=== PATIENT | male | born 1945 | race Caucasian/White ===

== ENCOUNTER 2018-09-23 11:49 | Inpatient (IN) ==
[2018-09-23] MEDS ORDERED: SODIUM CHLORIDE 0.9% 1000ML 1,000 ML IV ONE ×2 (12:52→13:22)
[2018-09-23 12:55] LABS: Hemoglobin 13.4 g/dL (14.0-18.0); Mean Corpuscular Hgb Conc 33.5 g/dL (32-36); Mean Corpuscular Volume 88.9 fL (80-100); Mean Platelet Volume 9.7 fL (7.4-10.4); Platelet Count 129 K/uL (130-400); RDW Coefficient of Variation 14.6 % (11.5-14.5); RDW Standard Deviation 47.7 fL (36.4-46.3); White Blood Count 27.36 K/uL (4.8-10.8)
[2018-09-23 13:17] LABS: Albumin Globulin Ratio 0.8 (0.9-2); Albumin Level 2.9 gm/dl (3.4-5.0); BUN Creatinine Ratio 15.3 (10-20); Bilirubin,Total 1.4 mg/dl (0.2-1); Calcium 8.9 mg/dl (8.5-10.1); Creatinine Clr Calc Pharmacy 11.5 ml/min; Est GFR (African American) 11.2; Est GFR (Non-African American) 9.6; Globulin 3.5 gm/dl (2.5-4.0); Potassium 4.6 mmol/L (3.5-5.1); Total Protein 6.4 gm/dl (6.4-8.2)
--- NOTE | 2018-09-23 13:17 | XRay Report ---
XR chest 1V portable HISTORY: 73 years-old Male Pt ARF acute renal failure. COMPARISON: Chest radiograph 09/21/2018 TECHNIQUE: Portable AP view of the chest FINDINGS: Cardiac silhouette is mildly enlarged, unchanged. Opacity about the right paratracheal tissues is als o unchanged. Hiatal hernia. No pneumothorax, pleural effusion or overt pulmonary edema. Linear subseg mental retrocardiac opacities about the left lung base suggest atelectasis/scarring. The mineralized appearance of the bones. Degenerative changes of the shoulders and spine. Mildly disp laced fracture about the lateral aspect right fifth rib redemonstrated which appears subacute or study manager melinda. IMPRESSION: 1. Mild cardiomegaly without overt pulmonary edema. 2. Hiatal hernia. 2. Retrocardiac opacities about the left lung base suggest atelectasis/scarring. The above report was generated using voice recognition software. It may contain grammatical, syntax o r spelling errors. Electronically signed by: Emanuel Browne M.D. 09/23/2018 1:16 PM
[2018-09-23 13:18] LABS: Creatine Kinase 59 U/L (39-308); Creatine Kinase MB 1.8 ng/ml (0.5-3.6); Troponin I < 0.015 ng/ml (0-0.045)
--- NOTE | 2018-09-23 13:31 | CT Scan Report ---
CT SCAN OF THE BRAIN WITHOUT IV CONTRAST CLINICAL HISTORY: Change in mental status. COMPARISON STUDY: CT of the brain dated 09/21/2018. TECHNIQUE: Unenhanced axial CT scan of the brain is performed from the vertex to the skull base. A do se lowering technique was utilized adhering to the principles of ALARA. FINDINGS: Brain parenchyma: There are age-related involutional changes noting mild subcortical and periventric ular microangiopathic change. There is no hemorrhage, mass effect, or evidence of acute territorial i schemia by CT criteria. Vargas-white matter differentiation is preserved. No extra-axial fluid collecti on is seen. Ventricles, sulci, cisterns: Prominent secondary to involutional change. Intracranial vasculature: There is atherosclerotic calcification of the cavernous carotid arteries. Calvarium: Unremarkable. Sinuses and mastoids: Mild mucosal thickening is noted in the maxillary antra. The remaining visualiz ed paranasal sinuses are clear. The mastoid air cells are well pneumatized. Orbits: The bony orbits are grossly intact. IMPRESSION: There is no hemorrhage, mass effect, or evidence of acute territorial ischemia by CT jaquan burden. Electronically signed by: Claudio Reed M.D. 09/23/2018 1:30 PM
[2018-09-23 13:37] LABS: Basophils # (auto) 0.01 K/uL (0-0.2); Immature Granulocytes # (auto) 0.25 K/uL (0.00-0.02); Immature Granulocytes % (auto) 0.9 %; Lymphocytes # (auto) 0.72 K/uL (1.2-3.4); Lymphocytes % (auto) 2.6 %; Monocytes # (auto) 1.03 K/uL (0.11-0.59); Monocytes % (auto) 3.8 %; Neutrophils # (auto) 25.35 K/uL (1.4-6.5); Neutrophils % (auto) 92.7 %; Toxic Vacuolation 1+
--- NOTE | 2018-09-23 13:46 | CT Scan Report ---
ABDOMEN AND PELVIS CT WITHOUT CONTRAST CT DOSE: 1025.17 mGy.cm HISTORY: Acute renal failure Pt ARF TECHNIQUE: Multiaxial CT images of the abdomen and pelvis were performed without contrast. A dose lo wering technique was utilized adhering to the principles of ALARA. COMPARISON STUDY: None. FINDINGS: Trace pleural effusions. Subsegmental bibasilar opacities are suggestive of atelectasis. No pneumatos is or pneumoperitoneum. Imaged inferior cardiac chambers are moderately enlarged with trace pericardi al effusion. Study is limited without the use of IV or oral contrast. Cholelithiasis without definite CT evidence of acute cholecystitis. There are several hypodense lesions about the liver, largest of which measure s 3.9 x 2.2 cm about the subcapsular right hepatic lobe suggestive of a cyst. Additional probable cys t measures 1.2 cm within the left hepatic lobe. Indeterminate hypodense 6 mm lesion of the right hepa tic lobe on image 13 series 4 is too small to characterize. No intrahepatic biliary ductal dilation o r evidence of cirrhosis. Spleen measures within the upper limits of normal in size. There is a nodula r cystic lesion about the pancreatic tail measuring 2.3 x 1.6 cm. Mild generalized pancreatic atrophy . No pancreatic ductal dilation. Moderate thickening of the bilateral adrenal glands. Moderate bilateral perinephric stranding. Linear 5 mm calcification projects over the anterior aspect of the inferior pole right kidney. There are at least 2 nonobstructing calculi about the left kidney measuring up to 4 mm. Moderate bilateral hydroureteronephrosis with periureteral inflammatory strand ing. Marked distention of the urinary bladder lumen measures up to 11.6 x 14.4 x 19.1 cm and contains multiple bladder diverticula along with circumferential wall thickening, urinary bladder wall trabec ulation and extensive perivesicular inflammatory stranding and reactive free fluid. Large bladder betzaida culi are seen dependently within a diverticulum of the posterior inferior bladder measuring up to 1.9 cm. Marked enlargement of the prostate gland measuring up to 5.8 cm transversely. Calcifications are seen centrally about the prostate. Small left and moderate right fat filled hernias. Calcification tortuosity about the abdominal aorta. Moderate hiatal hernia. Nonspecific mildly promin ent retrocrural lymph nodes measure up to 7 mm. No small bowel obstruction. Nonspecific mild rectal w all thickening. Colonic diverticulosis without acute diverticulitis. Tubular structure suggestive of a normal appendix is noted within the abdominal right lower quadrant. Mild generalized body wall alon a. Deep tissue air is noted about the anterior chondral portion of the right seventh rib. Multilevel spondylitic spurring with facet arthrosis. Chronic posttraumatic appearing bony fusion at the L1-L2 l evel. No acute fracture identified. IMPRESSION: 1. Marked prostamegaly with severe urinary bladder distention, bladder wall thickening, trabeculation , perivesicular edema and reactive free fluid suggests sequela of chronic bladder outlet obstruction with probable cystitis. Correlate with urinalysis. 2. Moderate bilateral hydroureteronephrosis with nonobstructing left nephrolithiasis. Several large d ependent bladder calculi are also noted. 3. Cholelithiasis without CT evidence of acute cholecystitis. 4. Trace bilateral pleural effusions. 5. Colonic diverticulosis without acute diverticulitis. 6. Moderate hiatal hernia. 7. Cardiomegaly with trace pericardial effusion. 8. Additional findings as above. Electronically signed by: Emanuel Browne M.D. 09/23/2018 1:44 PM
[2018-09-23] MEDS ORDERED: PIPERACILLIN/TAZOBACTAM 4.5 GM/120 ML BAG IV ONE (14:00)
[2018-09-23] MEDS ORDERED: PIPERACILL/TAZOBAC CONSULT ACTIVE PRN ×2 (14:00→17:10)
[2018-09-23] MEDS ORDERED: DAPTOmycin 400 MG in SYRINGE 0 ML IV ONE (14:00)
[2018-09-23 14:42] LABS: Appearance Urine Cloudy (Clear); Bacteria Urine Automated 2+ (Negative); Bilirubin Urine Negative (Negative); Blood Urine 3+ (Negative); Color Urine Orange; Epithelial Cell Urine Auto 0-5 /lpf (0-5); Glucose Urine UA Negative (Negative); Ketones Urine Negative (Negative); Leukocyte Esterase Urine 3+ (Negative); Nitrite Urine Positive (Negative); RBC Urine Automated >30 /hpf (0-4); Specific Gravity Urine 1.009 (1.000-1.030); Urobilinogen Urine Negative (Negative); WBC Urine Automated >30 /hpf (0-5); pH Urine >= 9.0 (4.5-7.5)
[2018-09-23 15:04] LABS: Protein Urine 2+ (Negative)
--- NOTE | 2018-09-23 15:38 | History & Physical Report ---
Date of Service September 23, 2018 Assessment & Plan (1) Acute renal failure: Today BUN: 82 from 28 2 days ago. Cr: 5.3 from 0.79 2 days ago. magnesium : 2.2, phosphorus:3.2 probable secondary to obstruction. Pt has not been on other medications. CT abd/pelvis: Marked prostamegaly with severe urinary bladder distention, bladder wall thickening, trabeculation, perivesicular edema and reactive free fluid suggests sequela of chronic bladder outlet obstruction with probable cystitis. Moderate bilateral hydroureteronephrosis with nonobstructing left nephrolithiasis. Several large dependent bladder calculi are also noted. -In ER received 2L NSS -pending TSH, ionized calcium -renal diet for now -nephrology consult - spoke with coupon collection clerk - recommended 1/2NSS with 75meq/L sodium bicarb at 100ml/hr -urology consult appreciate recommendations -recheck bmp tonight -bmp in am (2) Sepsis: Pt meets sepsis criteria with P: 92, WBC: 27. In ER afebrile, Pulse up to 92, R: 20, BP: 102/62, 96% on RA. UA: +nitrite, 3+ leuk, >30 WBC, >30 RBC, 2+ bacteria -Urinary source -In ER was given 2L NSS, daptomycin, zosyn -lactate:1.6 -pending urine culture -pending blood cultures -zosyn, daptomycin -IVF as above -CBC, electrolytes in am (3) Acute urinary retention: (4) Enlarged prostate: Urinary retention noted in ER. Had adams placed and draining red color urine. Pt reports decreased urine stream for years and has noticed scrotal enlargement for years that is non-tender CT Abd/pelvis: 1. Marked prostamegaly with severe urinary bladder distention, bladder wall thickening, trabeculation, perivesicular edema and reactive free fluid suggests sequela of chronic bladder outlet obstruction with probable cystitis. Correlate with urinalysis. 2. Moderate bilateral hydroureteronephrosis with nonobstructing left nephrolithiasis. Several large dependent bladder calculi are also noted. -adams -PSA pending -flomax -urology consult appreciate recommendations -scrotal edema - if no improvement in am after adams consider us scrotum (5) Metabolic encephalopathy: Reported altered mental status over past several weeks. Noted improvement by family today. Probable secondary to underlying infection CT Head: no acute changes. -currently alert, oriented to person and place -neuro checks -monitor, if no improvement consider neurology consult (6) Pericardial effusion: CT abd/pelvis noted trace pericardial effusion. -echo to further evaluate -may need cardiology consult (7) Tremor: Noted tremor bilateral hands. Reported shuffled gait and tremor for years. -consider neurology referral (8) Failure to thrive: Pt living in house without running water and not eating or drinking well -case management to assist DVT Prophylaxis -heparin SQ Admit tele Full Code as per discussion with pt and pt's cousin Pt does not have PCP for routine care Pt was seen with Dr Valdivia. See addendum History of Present Illness Chief Complaint: Worsening renal functions Primary Care Provider: NO PCP Pt is 73 y/o M without known medical problems who has not followed with PCP for greater than 30 years presented to ER from [facility] for worsening renal functions and altered mental status. Pt was seen in ER on 09/21/18 for increased confusion over past several weeks which was noted by his cousin and inside sales coordinator. Pt lives at home without any running water or modern bathroom facilities and it is reported he has been drinking water out of a spring and using depends or plastic bags for toileting. States has noted a tremor to bilateral hands and shuffling walking gait for years. Cousin and Online Banking Specialist report past 2 days severe confusion and yesterday he was unable to feed himself. They state today pt is less confused and has even been making some jokes. They report he complained of some back pain a couple of days ago but were unsure with his AMS. Pt was started on Sinemet yesterday for suspected Parkinson's. Pt reports history decreased urine stream for years and has noticed scrotal enlargement for years that is non-tender. He reports chronic dry skin and admits to picking/scratching at skin. Denies fever/chills, diaphoresis, N/V/D/C , BARRERA, dizziness, syncope, vision changes, neck pain, CP, SOB, orthopnea, palpitations, cough, sore throat, choking, otalgia, rhinorrhea, abdominal pain, paresthesias, dysuria, hematuria, melena, hematochezia. In ER 2 days ago pt had normal WBC, BUN: 28 and Cr: 0.79 and was noted to appear dehydrated and was given some IVF and discharged to [facility] rehab. Today had outpatient labs noting Cr: 5. Allergies Allergy/AdvReac Type Severity Reaction Status Date / Time No Known Allergies Allergy Unverified 09/23/18 13:37 Home Medications Home Medications Medication Instructions Recorded Confirmed Type carbidopa-levodopa [Sinemet] 1 tab PO Q8 09/23/18 09/23/18 History docusate sodium 100 mg PO BID 09/23/18 09/23/18 History Past Med/Surg History Medical History Failure to thrive (Acute) No significant past surgical history (Chronic) Social History Current Living Situation: Rehab Other Information That Helps Us Care for You: No Feels Safe at Home: Yes Safety Concerns: Feels Safe At This Time Smoking Status: Never smoker Do You Dip or Chew Tobacco: No Second Hand Exposure: No Tobacco Cessation Education Requested by Patient: No Hx Alcohol Use: No Hx Substance Use: No Beliefs That Will Affect Care: None Preferred Language: Lebanese Communication Ability: no glasses Bolt Threader Required: No Review of Systems All systems reviewed & are unremarkable except as noted in HPI & below Physical Exam 2 Vital Signs (Past 24 Hours): Last Vital Signs Temp 36.7 C 09/23/18 11:56 Pulse 96 H 09/23/18 13:38 Resp 18 09/23/18 13:38 BP 111/78 09/23/18 13:38 Pulse Ox 95 09/23/18 13:38 Physical Exam: General: no acute distress, chronic ill appearing Head: normocephalic, atraumatic Eyes: PERRL, EOM's intact, conjunctiva non-injected, slight crusting along lower eyelashes, anicteric ENT: normal inspection external ears, nose, mucous membranes moist Neck: supple, trachea midline Lungs: no respiratory distress, diminished at bases CV: RRR, no murmur, no pretibial edema Abd: normal BS, soft, non-tender,no flank tenderness to palpation Groin: +scrotal edema and firmness, non-tender Ext: no cyanosis, no calf tenderness Neuro: A&O to person and place, confused on time,+tremor bilateral hands -seen at rest intermittently and intermittently with movement, no arm rigidity Skin: warm, dry, +scabs, papules to chest Results & Data Laboratory Results Short CBC 09/23/18 Range/Units 12:08 WBC 27.36 H (4.8-10.8) K/uL Hgb 13.4 L (14.0-18.0) g/dL Hct 40.0 L (42-52) % Plt Count 129 L (130-400) K/uL BMP 09/23/18 12:08 Sodium 136 Potassium 4.6 Chloride 103 Carbon Dioxide 20 L BUN 82 H Creatinine 5.36 H* Glucose 99 Calcium 8.9 Cardiac Enzymes 09/23/18 Range/Units 12:08 Total Creatine Kinase 59 (39-308) U/L CK-MB (CK-2) 1.8 (0.5-3.6) ng/ml Troponin I < 0.015 (0-0.045) ng/ml Liver Function 09/23/18 Range/Units 12:08 Total Bilirubin 1.4 H (0.2-1) mg/dl AST 11 L (15-37) U/L ALT 6 L (12-78) U/L Alkaline Phosphatase 62 (45-117) U/L Albumin 2.9 L (3.4-5.0) gm/dl Urine 09/23/18 Range/Units 14:05 Urine Color [place] Urine Appearance Cloudy H (Clear) Urine pH >= 9.0 H (4.5-7.5) Ur Specific [place] 1.009 (1.000-1.030) Urine Protein 2+ H (Negative) Urine Glucose (UA) Negative (Negative) Diagnostic Findings CT HEAD: IMPRESSION: There is no hemorrhage, mass effect, or evidence of acute territorial ischemia by CT criteria. CXR: IMPRESSION: 1. Mild cardiomegaly without overt pulmonary edema. 2. Hiatal hernia. 2. Retrocardiac opacities about the left lung base suggest atelectasis/ scarring. CT ABD/PELVIS: IMPRESSION: 1. Marked prostamegaly with severe urinary bladder distention, bladder wall thickening, trabeculation, perivesicular edema and reactive free fluid suggests sequela of chronic bladder outlet obstruction with probable cystitis. Correlate with urinalysis. 2. Moderate bilateral hydroureteronephrosis with nonobstructing left nephrolithiasis. Several large dependent bladder calculi are also noted. 3. Cholelithiasis without CT evidence of acute cholecystitis. 4. Trace bilateral pleural effusions. 5. Colonic diverticulosis without acute diverticulitis. 6. Moderate hiatal hernia. 7. Cardiomegaly with trace pericardial effusion. 8. Additional findings as above. ECG Rate (beats per minute): 66 Rhythm: normal sinus Additional Comments: left anterior fascicular block Supervising Physician Co-Signing Physician Notes Patient is a 73 yr male who presents with altered mental status, decreased urinary output, poor hygiene. Patient is a poor historian. Please review HPI for complete details. Patient was found to have ARF, Sepsis likely secondary to UTI due to Obstructive Uropathy/urinary retention, metabolic encephalopathy, Trace pericardial effusion, Uremia. On Exam patient is chronic ill appearing, poor hygiene, resting tremor, decreased breath sounds at bases, S2, S2, No murmur, No pedal edema, poor eye contact. grossly no focal deficits. Patient has elevated PSA levels. Patient will be started on IV fluids, IV abx, Urinary Catheter placed in ED. Started on flomax, Urology and Nephrology consulted. May need Neurology eval as well if no improvement of encephalopathy. I personally reviewed the record. Patient is interviewed and examined at bedside. Patient's care is coordinated with Samantha Maharaj PA-C. Please refer to the documentation above for details of patient's presentation and for discussion of other issues. _ (1) Acute renal failure Acute renal failure type: (2) Failure to thrive Failure to thrive age range: in adult Qualified Code(s): R62.7 - Adult failure to thrive
--- NOTE | 2018-09-23 16:49 | Nephrology Consultation ---
Date of Consultation September 23, 2018 Assessment & Plan (1) Acute renal failure: acute renal failure >> obstructive primarily -bmp daily -discussed w/ admitting service and recommended 1/2 NS w/75mEq/L sodium bicarbonate at 100 mL /hr -continue sepsis work up >> concern may have uti or potentially bacteremia -f/u urology recs -no acute indication for dialysis at this time Present on Admission?: Yes (2) Acute urinary retention: based on imaging, difficult to say if this is acute or chronic >> -adams placed -recommend urology eval Present on Admission?: Yes History of Present Illness Reason for Consultation: ANGE Requesting Physician: Dr Valdivia Attending Physician: Dr Dutta History of Present Illness 73 y/o M whom I'm asked to see for ANGE. He has not routinely accessed medical care for at least 30 years per report and lives alone w/ no running water for past year >> was brought to ER by strike out machine operator and cousin d/t concerns on 09/21 about worsening confusion and disorientation. His creatinine on 09/21 was 0.8 w/ unremarkable chemistries. Head CT unremarkable. Resting tremor and report of longstanding shuffling gait noted. He received 1L IV fluids. It was determined that acute rehab referral best w/ OP neurology eval. Pt went to [facility] where he was started on sinemet yesterday. Labs from this morning showed elevated creatinine and pt sent here w/ creatinine 5.4, wbc 27 K. Pt reported years of decreased urine output and enlarged, nontender scrotum per report. on arrival to floor pt noted to have brown urine in adams. Allergies Allergy/AdvReac Type Severity Reaction Status Date / Time No Known Allergies Allergy Unverified 09/23/18 13:37 Home Medications Home Medications Medication Instructions Recorded Confirmed Type carbidopa-levodopa [Sinemet] 1 tab PO Q8 09/23/18 09/23/18 History docusate sodium 100 mg PO BID 09/23/18 09/23/18 History Patient History Medical History Failure to thrive (Acute) No significant past surgical history (Chronic) Social History Current Living Situation: Rehab Other Information That Helps Us Care for You: No Feels Safe at Home: Yes Safety Concerns: Feels Safe At This Time Smoking Status: Never smoker Do You Dip or Chew Tobacco: No Second Hand Exposure: No Tobacco Cessation Education Requested by Patient: No Hx Alcohol Use: No Hx Substance Use: No Beliefs That Will Affect Care: None Preferred Language: Mauritian Communication Ability: no glasses Chief Lock Operator Required: No Review of Systems limited by pt condition Constitutional: + fatigue and + weakness Eyes: no worsening vision Ear, Nose, Mouth, Throat: no dry mouth Respiratory: no dyspnea Cardiovascular: no chest pain and no edema Gastrointestinal: no abdominal pain and no change in bowel habits Genitourinary (Male): + urinary hesitancy reports fci enlarged scrotum, states "I have a soft tissue tumor" and points to groin Musculoskeletal: + muscle weakness; no back pain and no stiffness Integumentary: no rash and no non-healing lesions Neurologic: + unsteadiness, + generalized weakness and + tremor(s); no falls Endocrine: + fatigue thirst Hematologic / Lymphatic: no easy bleeding Physical Exam 2 Vital Signs (Past 24 Hours): Last Vital Signs Temp 36.7 C 09/23/18 11:56 Pulse 63 09/23/18 16:32 Resp 18 09/23/18 16:32 BP 109/65 09/23/18 16:32 Pulse Ox 97 09/23/18 16:32 Constitutional: well developed and well nourished on RA, lying flat, tired but wakens Eyes: EOM intact bilaterally ENMT: Ears: no external ear abnormality Nose: no external nose abnormality Mouth: + dry oral mucous membranes and + poor dentition Neck: no nuchal rigidity Respiratory: normal respiratory effort Auscultation: + diminished lung sounds Cardiovascular: RRR, no murmur, no edema Gastrointestinal (Abdomen): Inspection/Auscultation: normal bowel sounds Percussion/Palpation: abdomen soft; abdomen nontender Musculoskeletal: Extremities: strength 5/5 throughout Skin: no rashes, warm and dry Neurologic: figueroa, fluent speech, no tremor Psychiatric: Orientation: alert and oriented x 3 (though oriented x 3 not a reliable historian) Eye Contact: + poor eye contact Motor Behavior: + tremor; + abnormal motor movements Affect: + flat affect Genitourinary: adams w/ brown urine Results & Data Laboratory Results Abnormal lab results 09/23/18 09/23/18 09/23/18 Range/Units 12:08 12:08 12:08 WBC 27.36 H (4.8-10.8) K/uL RBC 4.50 L (4.7-6.1) M/uL Hgb 13.4 L (14.0-18.0) g/dL Hct 40.0 L (42-52) % RDW Std Deviation 47.7 H (36.4-46.3) fL RDW Coeff of Kayley 14.6 H (11.5-14.5) % Plt Count 129 L (130-400) K/uL Immature Gran # (Auto) 0.25 H (0.00-0.02) K/uL Neut # (Auto) 25.35 H (1.4-6.5) K/uL Lymph # (Auto) 0.72 L (1.2-3.4) K/uL [place] # (Auto) 1.03 H (0.11-0.59) K/uL Carbon Dioxide 20 L (21-32) mmol/L Anion Gap 12.0 H (3-11) BUN 82 H (7-18) mg/dl Creatinine 5.36 H* (0.6-1.4) mg/dl Total Bilirubin 1.4 H (0.2-1) mg/dl AST 11 L (15-37) U/L ALT 6 L (12-78) U/L CK/CKMB % Calc 3.1 H (0-3.0) Albumin 2.9 L (3.4-5.0) gm/dl Albumin/Globulin Ratio 0.8 L (0.9-2) Urine Appearance (Clear) Urine pH (4.5-7.5) Urine Protein (Negative) Urine Blood (Negative) Urine Nitrite (Negative) Ur Leukocyte Esterase (Negative) Urine WBC (Auto) (0-5) /hpf Urine RBC (Auto) (0-4) /hpf Urine Bacteria (Auto) (Negative) 09/23/18 Range/Units 14:05 WBC (4.8-10.8) K/uL RBC (4.7-6.1) M/uL Hgb (14.0-18.0) g/dL Hct (42-52) % RDW Std Deviation (36.4-46.3) fL RDW Coeff of [place] (11.5-14.5) % Plt Count (130-400) K/uL Immature Gran # (Auto) (0.00-0.02) K/uL Neut # (Auto) (1.4-6.5) K/uL Lymph # (Auto) (1.2-3.4) K/uL [place] # (Auto) (0.11-0.59) K/uL Carbon Dioxide (21-32) mmol/L Anion Gap (3-11) BUN (7-18) mg/dl Creatinine (0.6-1.4) mg/dl Total Bilirubin (0.2-1) mg/dl AST (15-37) U/L ALT (12-78) U/L CK/CKMB % Calc (0-3.0) Albumin (3.4-5.0) gm/dl Albumin/Globulin Ratio (0.9-2) Urine Appearance Cloudy H (Clear) Urine pH >= 9.0 H (4.5-7.5) Urine Protein 2+ H (Negative) Urine Blood 3+ H (Negative) Urine Nitrite Positive H (Negative) Ur Leukocyte Esterase 3+ H (Negative) Urine WBC (Auto) >30 H (0-5) /hpf Urine RBC (Auto) >30 H (0-4) /hpf Urine Bacteria (Auto) 2+ H (Negative) Diagnostic Findings ct abd/pelvis non con 1. Marked prostamegaly with severe urinary bladder distention, bladder wall thickening, trabeculation, perivesicular edema and reactive free fluid suggests sequela of chronic bladder outlet obstruction with probable cystitis. Correlate with urinalysis. 2. Moderate bilateral hydroureteronephrosis with nonobstructing left nephrolithiasis. Several large dependent bladder calculi are also noted. 3. Cholelithiasis without CT evidence of acute cholecystitis. 4. Trace bilateral pleural effusions. 5. Colonic diverticulosis without acute diverticulitis. 6. Moderate hiatal hernia. 7. Cardiomegaly with trace pericardial effusion. 8. Additional findings as above. _ (1) Acute renal failure Acute renal failure type:
[2018-09-23] MEDS ORDERED: ACETAMINOPHEN 325 MG TAB PO PRN (17:06)
[2018-09-23] MEDS ORDERED: DAPTOMYCIN CONSULT ACTIVE PRN (17:21)
[2018-09-23] MEDS ORDERED: DAPTOmycin 400 MG in SYRINGE 0 ML IV SCH (18:00)
[2018-09-23 18:09] LABS: Magnesium 2.2 mg/dl (1.8-2.4); Phosphorus 3.2 mg/dl (2.5-4.9)
[2018-09-23] MEDS: SODIUM BICARBONATE 8.4% 75 MEQ in SODIUM CHLORIDE 0.45 % 1,000 ML IV SCH (18:12)
[2018-09-23] MEDS: TAMSULOSIN HCL 0.4 MG CAP PO SCH (18:23)
[2018-09-23 20:27] LABS: INR 1.1 (0.9-1.1); Prothrombin Time 11.3 Seconds (9.0-12.0)
[2018-09-23 20:39] LABS: BUN Creatinine Ratio 18.2 (10-20); Calcium 8.1 mg/dl (8.5-10.1); Creatinine Clr Calc Pharmacy 16.3 ml/min; Est GFR (Non-African American) 14.6; Prostate Specific Antigen 20.5 ng/ml (0-4)
[2018-09-23 20:40] LABS: Potassium 3.7 mmol/L (3.5-5.1)
[2018-09-23] MEDS: PIPERACILLIN/TAZOBACTAM 3.375 GM in DEXTROSE 5% 100 ML IV SCH (20:49)
[2018-09-23] MEDS ORDERED: HEPARIN SOD 5,000 UNIT/0.5 ML VIAL SQ SCH (21:00)
[2018-09-24] MEDS: SODIUM BICARBONATE 8.4% 75 MEQ in SODIUM CHLORIDE 0.45 % 1,000 ML IV SCH ×2 (04:48→16:07)
[2018-09-24 06:18] LABS: Eosinophils # (auto) 0.09 K/uL (0-0.5); Eosinophils % (auto) 0.6 %; Hemoglobin 11.2 g/dL (14.0-18.0); Immature Granulocytes # (auto) 0.06 K/uL (0.00-0.02); Immature Granulocytes % (auto) 0.4 %; Lymphocytes % (auto) 4.1 %; Mean Corpuscular Hgb Conc 32.9 g/dL (32-36); Mean Corpuscular Volume 88.8 fL (80-100); Mean Platelet Volume 10.1 fL (7.4-10.4); Monocytes # (auto) 0.52 K/uL (0.11-0.59); Monocytes % (auto) 3.6 %; Neutrophils % (auto) 91.3 %; Platelet Count 103 K/uL (130-400); RDW Coefficient of Variation 14.6 % (11.5-14.5); RDW Standard Deviation 47.6 fL (36.4-46.3); Red Blood Count 3.83 M/uL (4.7-6.1); White Blood Count 14.57 K/uL (4.8-10.8)
[2018-09-24 06:50] LABS: Albumin Level 2.1 gm/dl (3.4-5.0); BUN Creatinine Ratio 28.1 (10-20); Bilirubin Direct 0.2 mg/dl (0-0.2); Calcium 7.6 mg/dl (8.5-10.1); Creatinine Clr Calc Pharmacy 34.9 ml/min; Est GFR (African American) 43.5; Est GFR (Non-African American) 37.5; Magnesium 2.2 mg/dl (1.8-2.4); Potassium 3.5 mmol/L (3.5-5.1)
[2018-09-24 06:56] LABS: Albumin Globulin Ratio 0.7 (0.9-2); Bilirubin,Total 0.8 mg/dl (0.2-1); Phosphorus 2.8 mg/dl (2.5-4.9); Total Protein 5.1 gm/dl (6.4-8.2)
--- NOTE | 2018-09-24 07:20 | Urology Consultation ---
Date of Consultation September 24, 2018 Assessment & Plan (1) Enlarged prostate: (2) Bilateral hydronephrosis: (3) Acute urinary retention: 73yo M with acute delirium, severe bladder distension, BPH, bilateral hydro, ANGE, UTI, Leukocytosis Likely this is an acute on chronic issue. VS stable UA grossly abnormal, UC&S and BC pending. Please treat based on sensitivities for 10-14d. Prompt improvement in kidney function with catheter in place. We anticipate he will require adams catheter to allow maximal drainage for an extended period of time. PSA 20.5 initially, will recheck in 2-3 months when stable. Will add tamsulosin while inpatient, hold for SBP <90. There is concern that patient may have compliance issues moving forward. He is at risk for recurrence, kidney failure, and need for dialysis without proper outpatient follow-up. Likely will need outpatient cystoscopy and TURP for long-term management. Thank you for the consultation, we will continue to follow. No surgical intervention required at this time. Please see additional comments per my attending, as indicated. History of Present Illness Reason for Consultation: prostamegaly / hydro Requesting Physician: Dr. 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 He lives alone without running water and has not participated in consistent healthcare in >30 years. Pt found to be in acute renal failure, with leukocytosis, and grossly abnormal UA. CT imaging reveals bilateral hydronephrosis, stable L renal, nonobs stones, with grossly distended bladder associated with trabeculation, diverticuli and calculi. Consistent with cystitis, BPH and chronic NIX. Catheter placed in ED, drained large amount of cloudy, blood tinged urine. UA grossly abnormal, +2 protein, Nitrate positive, large leuks. UC&S and BC pending. Cr 5.36 on admission, improved to 1.74 with ad[address] catheter in place. Upon interview, patient is lethargic but disoriented to time. Oriented to self and place. Answering yes/no questions only. Pulling IV line and attempting to pull catheter out. He does admit to slowing urinary stream over the course of time. Allergies Allergy/AdvReac Type Severity Reaction Status Date / Time No Known Allergies Allergy Unverified 09/23/18 13:37 Home Medications Home Medications Medication Instructions Recorded Confirmed Type carbidopa-levodopa [Sinemet] 1 tab PO Q8 09/23/18 09/23/18 History docusate sodium 100 mg PO BID 09/23/18 09/23/18 History Patient History Medical History Failure to thrive (Acute) No significant past surgical history (Chronic) Family History Other Brain tumor Social History Current Living Situation: Rehab Other Information That Helps Us Care for You: No Feels Safe at Home: Yes Safety Concerns: Feels Safe At This Time Smoking Status: Never smoker Do You Dip or Chew Tobacco: No Second Hand Exposure: No Tobacco Cessation Education Requested by Patient: No Hx Alcohol Use: No Hx Substance Use: No Beliefs That Will Affect Care: None Preferred Language: Libyan Communication Ability: no glasses Gifted Program Teacher Required: No Review of Systems ROS inappropriate due to pt mentation. Physical Exam 2 Vital Signs (Past 24 Hours): Last Vital Signs Temp 37.0 C 09/24/18 03:56 Pulse 72 09/24/18 03:56 Resp 16 09/24/18 03:56 BP 107/66 09/24/18 03:56 Pulse Ox 94 09/24/18 03:56 Constitutional: + thin, + frail appearing and + disheveled Eyes: no nystagmus ENMT: Ears: no hearing impairment Neck: trachea midline Respiratory: no respiratory distress and does not use accessory muscles Cardiovascular: Vessels: no JVD Gastrointestinal (Abdomen): Inspection/Auscultation: abdomen not distended and no abdominal edema Musculoskeletal: Head/Neck/Chest: normocephalic Skin: no rashes, warm and dry Neurologic: + confused Psychiatric: Orientation: oriented to person and oriented to place; + not alert and + not oriented to time Affect: no depressed affect Insight: + poor insight Judgement: + poor judgement Genitourinary: adams catheter draining pink-tinged, clear urine Results & Data Laboratory Results Laboratory Results - last 48 hr 09/23/18 09/23/18 09/23/18 12:08 12:08 12:08 WBC 27.36 H RBC 4.50 L Hgb 13.4 L Hct 40.0 L MCV 88.9 MCH 29.8 MCHC 33.5 RDW Std Deviation 47.7 H RDW Coeff of Kayley 14.6 H Plt Count 129 L MPV 9.7 Immature Gran % (Auto) 0.9 Neut % (Auto) 92.7 Lymph % (Auto) 2.6 Madison % (Auto) 3.8 Eos % (Auto) 0.0 Baso % (Auto) 0.0 Immature Gran # (Auto) 0.25 H Neut # (Auto) 25.35 H Lymph # (Auto) 0.72 L Madison # (Auto) 1.03 H Eos # (Auto) 0.00 Baso # (Auto) 0.01 Toxic Vacuolation 1+ PT INR Sodium 136 Potassium 4.6 Chloride 103 Carbon Dioxide 20 L Anion Gap 12.0 H BUN 82 H Creatinine 5.36 H* Est Cr Clr Drug Dosing 11.5 Est GFR ( Amer) 11.2 Est GFR (Non-Af Amer) 9.6 BUN/Creatinine Ratio 15.3 Glucose 99 Lactate Calcium 8.9 Ionized Calcium Phosphorus Magnesium Total Bilirubin 1.4 H Direct Bilirubin AST 11 L ALT 6 L Alkaline Phosphatase 62 Total Creatine Kinase 59 CK-MB (CK-2) 1.8 CK/CKMB % Calc 3.1 H Troponin I < 0.015 Total Protein 6.4 Albumin 2.9 L Globulin 3.5 Albumin/Globulin Ratio 0.8 L Prostate Specific Ag TSH Urine Color Urine Appearance Urine pH Ur Specific [place]pine Urine Protein Urine Glucose (UA) Urine Ketones Urine Blood Urine Nitrite Urine Bilirubin Urine Urobilinogen Ur Leukocyte Esterase Urine WBC (Auto) Urine RBC (Auto) U Hyaline Cast (Auto) U Epithel Cells (Auto) Urine Bacteria (Auto) 09/23/18 09/23/18 09/23/18 14:05 15:55 17:14 WBC RBC Hgb Hct MCV MCH MCHC RDW Std Deviation RDW Coeff of Kayley Plt Count MPV Immature Gran % (Auto) Neut % (Auto) Lymph % (Auto) Madison % (Auto) Eos % (Auto) Baso % (Auto) Immature Gran # (Auto) Neut # (Auto) Lymph # (Auto) Madison # (Auto) Eos # (Auto) Baso # (Auto) Toxic Vacuolation PT INR Sodium Potassium Chloride Carbon Dioxide Anion Gap BUN Creatinine Est Cr Clr Drug Dosing Est GFR ( Amer) Est GFR (Non-Af Amer) BUN/Creatinine Ratio Glucose Lactate 1.6 Calcium Ionized Calcium 1.17 Phosphorus Magnesium Total Bilirubin Direct Bilirubin AST ALT Alkaline Phosphatase Total Creatine Kinase CK-MB (CK-2) CK/CKMB % Calc Troponin I Total Protein Albumin Globulin Albumin/Globulin Ratio Prostate Specific Ag TSH Urine Color [place] Urine Appearance Cloudy H Urine pH >= 9.0 H Ur Specific [place] 1.009 Urine Protein 2+ H Urine Glucose (UA) Negative Urine Ketones Negative Urine Blood 3+ H Urine Nitrite Positive H Urine Bilirubin Negative Urine Urobilinogen Negative Ur Leukocyte Esterase 3+ H Urine WBC (Auto) >30 H Urine RBC (Auto) >30 H U Hyaline Cast (Auto) 1-5 U Epithel Cells (Auto) 0-5 Urine Bacteria (Auto) 2+ H 09/23/18 09/23/18 09/23/18 17:14 19:40 19:40 WBC RBC Hgb Hct MCV MCH MCHC RDW Std Deviation RDW Coeff of Kayley Plt Count MPV Immature Gran % (Auto) Neut % (Auto) Lymph % (Auto) Madison % (Auto) Eos % (Auto) Baso % (Auto) Immature Gran # (Auto) Neut # (Auto) Lymph # (Auto) Madison # (Auto) Eos # (Auto) Baso # (Auto) Toxic Vacuolation PT 11.3 INR 1.1 Sodium 139 Potassium 3.7 D Chloride 108 H Carbon Dioxide 22 Anion Gap 9.0 BUN 69 H Creatinine 3.79 H D Est Cr Clr Drug Dosing 16.3 Est GFR ( Amer) 17.0 Est GFR (Non-Af Amer) 14.6 BUN/Creatinine Ratio 18.2 Glucose 155 H Lactate Calcium 8.1 L Ionized Calcium Phosphorus 3.2 Magnesium 2.2 Total Bilirubin Direct Bilirubin AST ALT Alkaline Phosphatase Total Creatine Kinase CK-MB (CK-2) CK/CKMB % Calc Troponin I Total Protein Albumin Globulin Albumin/Globulin Ratio Prostate Specific Ag 20.500 H TSH 0.975 Urine Color Urine Appearance Urine pH Ur Specific [place] Urine Protein Urine Glucose (UA) Urine Ketones Urine Blood Urine Nitrite Urine Bilirubin Urine Urobilinogen Ur Leukocyte Esterase Urine WBC (Auto) Urine RBC (Auto) U Hyaline Cast (Auto) U Epithel Cells (Auto) Urine Bacteria (Auto) 09/24/18 09/24/18 05:29 05:29 WBC 14.57 H D RBC 3.83 L Hgb 11.2 L Hct 34.0 L MCV 88.8 MCH 29.2 MCHC 32.9 RDW Std Deviation 47.6 H RDW Coeff of Kayley 14.6 H Plt Count 103 L MPV 10.1 Immature Gran % (Auto) 0.4 Neut % (Auto) 91.3 Lymph % (Auto) 4.1 Madison % (Auto) 3.6 Eos % (Auto) 0.6 Baso % (Auto) 0.0 Immature Gran # (Auto) 0.06 H Neut # (Auto) 13.30 H Lymph # (Auto) 0.60 L [place] # (Auto) 0.52 Eos # (Auto) 0.09 Baso # (Auto) 0.00 Toxic Vacuolation PT INR Sodium 140 Potassium 3.5 Chloride 110 H Carbon Dioxide 23 Anion Gap 7.0 BUN 49 H Creatinine 1.74 H D Est Cr Clr Drug Dosing 34.9 Est GFR ( Amer) 43.5 Est GFR (Non-Af Amer) 37.5 BUN/Creatinine Ratio 28.1 H Glucose 83 Lactate Calcium 7.6 L Ionized Calcium Phosphorus 2.8 Magnesium 2.2 Total Bilirubin 0.8 D Direct Bilirubin 0.2 AST 7 L ALT 9 L Alkaline Phosphatase 46 Total Creatine Kinase CK-MB (CK-2) CK/CKMB % Calc Troponin I Total Protein 5.1 L D Albumin 2.1 L Globulin 3.0 Albumin/Globulin Ratio 0.7 L Prostate Specific Ag TSH Urine Color Urine Appearance Urine pH Ur Specific [place] Urine Protein Urine Glucose (UA) Urine Ketones Urine Blood Urine Nitrite Urine Bilirubin Urine Urobilinogen Ur Leukocyte Esterase Urine WBC (Auto) Urine RBC (Auto) U Hyaline Cast (Auto) U Epithel Cells (Auto) Urine Bacteria (Auto)
[2018-09-24] MEDS: PIPERACILLIN/TAZOBACTAM 3.375 GM in DEXTROSE 5% 100 ML IV SCH ×2 (07:56→16:14)
[2018-09-24] MEDS: TAMSULOSIN HCL 0.4 MG CAP PO SCH (07:59)
--- NOTE | 2018-09-24 16:58 | Hospitalist Progress Note ---
Date of Service September 24, 2018 Assessment & Plan (1) Acute renal failure: Secondary to obstructive uropathy Presented with creatinine 5.3 (creatinine was 0.79 on 09/21/2018 CT abd/pelvis: Marked prostamegaly with severe urinary bladder distention, bladder wall thickening, trabeculation, perivesicular edema and reactive free fluid suggests sequela of chronic bladder outlet obstruction with probable cystitis. Moderate bilateral hydroureteronephrosis with nonobstructing left nephrolithiasis. Several large dependent bladder calculi are also noted. Adams catheter placed, but adequate urine output Creatinine improved: 5.36�3.7�1.74 -nephrology consulted -appreciate input - recommended 1/2NSS with 75meq/L sodium bicarb at 100ml/hr Improvement of creatinine as outlined above Bicarb 22 We will DC bicarb drip Patient will be continued with normal saline at the rate 125 ml/h Repeat BMP in a.m. - (2) Sepsis: Presented with sepsis, meets criteria, leukocytosis white count 27, thrombocytopenia, tachypnea Possible source of infection: UTI Marked urinary retention/obstruction UA positive nitrite +3 leukocyte esterase, more than 30 WBC, more than 30 RBC, + 2 bacteria Patient was empirically started with IV daptomycin/Zosyn -lactate:1.6 Follow urine and blood culture -possible source of infection -UTI cont Zosyn -pending cultures D/C Daptomycin Leukocytosis improved 27�14 .5 today (3) Acute urinary retention: Possible secondary to enlarged prostate/bladder outlet obstruction CT abdomen pelvis shows severely urinary bladder distention, bladder wall thickening is, enlarged prostate Adams placed Creatinine improved after resolution of bladder retention, IV hydration Urology consulted, appreciate input developed hematuria -possible due to traumatic catheter placement (4) Enlarged prostate: Urinary retention noted in ER. Had adams placed noted to have hematuria Pt reports decreased urine stream for years and has noticed scrotal enlargement for years that is non-tender CT Abd/pelvis: 1. Marked prostamegaly with severe urinary bladder distention, bladder wall thickening, trabeculation, perivesicular edema and reactive free fluid suggests sequela of chronic bladder outlet obstruction with probable cystitis. Correlate with urinalysis. 2. Moderate bilateral hydroureteronephrosis with nonobstructing left nephrolithiasis. Several large dependent bladder calculi are also noted. -PSA > 20 -started on flomax -urology consult appreciate recommendations -Recommend continue Adams catheter Repeat PSA level in 2-3 months Will need outpatient cystoscopy (5) Metabolic encephalopathy: due to infection /acute renal failure /uremia -metabolic encephalopathy Reported altered mental status over past several weeks. Noted improvement by family today. Probable secondary to underlying infection CT Head: no acute changes. -currently alert, oriented to person and place , with episodes of confusion (6) Pericardial effusion: CT abd/pelvis noted trace pericardial effusion. possible due to acute renal failure /uremia -echo : Small loculated anterior pericardial effusion without hemodynamic significance/no evidence of tamponade Normal LV function, no wall motion abnormality (7) Tremor: Noted tremor bilateral hands. Reported shuffled gait and tremor for years. -consider neurology referral (8) Failure to thrive: Pt living in house without running water and not eating or drinking well -case management to assist for rehab PT/OT eval to assess for Rehab DVT Prophylaxis DC subcu heparin: Secondary to thrombocytopenia SCD and Teds Full Code as per discussion with pt and pt's cousin Pt does not have PCP for routine care Subjective offers no complain baseline confusion , knows that he is in hospital ( [facility] ) does not recall why and when he came to hospital denies of any SOB , cough vitals remains stable Adams draining dark urine ( no obvious hematuria noted ) Physical Exam 2 Vital Signs (Past 24 Hours): Last Vital Signs Temp 36.8 C 09/24/18 15:23 Pulse 64 09/24/18 15:23 Resp 18 09/24/18 15:23 BP 110/70 09/24/18 15:23 Pulse Ox 95 09/24/18 15:23 Constitutional: + ill appearing, + thin and + disheveled Eyes: + anicteric sclerae ENMT: Ears: no hearing impairment Mouth: no lip abnormality, no oral mucosal abnormality and no tongue abnormality Respiratory: normal respiratory effort; no respiratory distress and no labored breathing Auscultation: no crackles, no rales and no wheezes Cardiovascular: Rate/Rhythm: regular rate and regular rhythm Gastrointestinal (Abdomen): Inspection/Auscultation: abdomen normal to inspection Percussion/Palpation: abdomen soft; abdomen nontender Musculoskeletal: Head/Neck/Chest: normocephalic and head atraumatic bilateral chronic venous stasis change Neurologic: PERRL, EOMI, accommodation nl, no face palsy, no dysarthria Psychiatric: Orientation: alert, oriented to person and oriented to place _ (1) Acute renal failure Acute renal failure type: (2) Failure to thrive Failure to thrive age range: in adult Qualified Code(s): R62.7 - Adult failure to thrive
[2018-09-24] MEDS ORDERED: ONDANSETRON INJ 2 MG/ML 2 ML VIAL IV PRN (17:02)
[2018-09-24] MEDS: SODIUM CHLORIDE 0.9% 1000ML 1,000 ML IV SCH (18:45)
[2018-09-24] MEDS ORDERED: TAMSULOSIN HCL 0.4 MG CAP PO SCH (21:00)
[2018-09-25] MEDS: PIPERACILLIN/TAZOBACTAM 3.375 GM in DEXTROSE 5% 100 ML IV SCH ×4 (00:29→23:53)
[2018-09-25] MEDS: SODIUM CHLORIDE 0.9% 1000ML 1,000 ML IV SCH ×2 (00:36→13:23)
[2018-09-25 05:53] LABS: Hematocrit (blood only) 34.8 % (42-52); Hemoglobin 11.4 g/dL (14.0-18.0); Mean Corpuscular Hgb Conc 32.8 g/dL (32-36); Mean Corpuscular Volume 88.8 fL (80-100); Mean Platelet Volume 9.9 fL (7.4-10.4); Platelet Count 100 K/uL (130-400); RDW Coefficient of Variation 14.4 % (11.5-14.5); RDW Standard Deviation 46.6 fL (36.4-46.3); Red Blood Count 3.92 M/uL (4.7-6.1); White Blood Count 9.18 K/uL (4.8-10.8)
[2018-09-25 06:37] LABS: BUN Creatinine Ratio 26.8 (10-20); Calcium 7.6 mg/dl (8.5-10.1); Creatinine Clr Calc Pharmacy 55.7 ml/min; Est GFR (African American) 76.5; Potassium 3.8 mmol/L (3.5-5.1)
[2018-09-25] MEDS: TAMSULOSIN HCL 0.4 MG CAP PO SCH (08:40)
[2018-09-25] MEDS: NORMOSOL-R 1,000 ML IV SCH ×2 (12:25→19:54)
[2018-09-25] MEDS: CARBIDOPA/LEVODOPA 25/100MG TAB PO SCH ×2 (13:32→20:36)
[2018-09-25] MEDS: DOCUSATE SODIUM 100 MG CAP PO SCH ×2 (13:32→20:36)
--- NOTE | 2018-09-25 15:43 | Urology Progress Note ---
Date of Service September 25, 2018 Assessment & Plan (1) Acute urinary retention: ARF 2/2 bladder neck obstruction - leave catheter for now - Cr has corrected completely - likely will need surgery at some point in the future, but not acutely Subjective Denies any major complaints reports that the catheter is ok Physical Exam 2 Vital Signs (Past 24 Hours): Last Vital Signs Temp 36.3 C L 09/25/18 12:53 Pulse 64 09/25/18 12:53 Resp 18 09/25/18 12:53 BP 110/68 09/25/18 12:53 Pulse Ox 97 09/25/18 12:53 Physical Exam: soft spoken - no distress no resp issues RRR abd soft urine clear no edema - no rashes
--- NOTE | 2018-09-25 19:04 | Emergency Department Note ---
Entered by Aki Hogan acting as a scribe for History of Present Illness General Chief complaint: Referred by Doctor Stated complaint: SENT FROM AT [facility] Time Seen by Provider: 09/23/18 12:48 Source: patient Limitations: altered mental status and clinical acuity History of Present Illness Provider complaint: AMS/Confusion Onset (ago): day(s) Location: head Pain Consistency: + other (worsening confusion) Quality: + other (confusion) Associated symptoms: + other (BUN 73, Creatinine 5.0) Treatments prior to arrival: other ([facility]) This history is significantly limited secondary to AMS/confusion. The patient is a 73 year old male who presents to the Emergency Room from [facility] in acute renal failure. [facility] notes states that his lab work today showed BUN of 73 and a Creatinine of 5.0. HPI from ED visit two days ago reads; This history is significantly limited secondary to the mental status of the patient. The patient is a 73 year old male who presents to the Emergency Room with his cousin and [employer] with concerns over worsening confusion and disorientation. The patient's cousin at bedside states that the patient has been exhibiting worsening disorientation over the past several weeks. He notes that the patient lives at home alone and has not had running water in over 1 year. The patient has been getting his water from a nearby spring and having his bowel movements in plastic bags. He does not have a PCP and is not on any daily medications. The patient was admitted to [facility] following this visit for rehabilitation. Home Medications Home Medications Medication Instructions Recorded Confirmed Type carbidopa-levodopa [Sinemet] 1 tab PO Q8 09/23/18 09/23/18 History docusate sodium 100 mg PO BID 09/23/18 09/23/18 History Allergies Allergy/AdvReac Type Severity Reaction Status Date / Time No Known Allergies Allergy Unverified 09/23/18 13:37 Past Med/Surg History Medical History Failure to thrive (Acute) No significant past surgical history (Chronic) Family History Other Brain tumor Social History marital status: Single Current Living Situation: Rehab Other Information That Helps Us Care for You: No Feels Safe at Home: Yes Safety Concerns: Feels Safe At This Time Smoking Status: Never smoker Do You Dip or Chew Tobacco: No Second Hand Exposure: No Tobacco Cessation Education Requested by Patient: No Hx Alcohol Use: No Hx Substance Use: No Beliefs That Will Affect Care: None Communication Ability: Effective Review of Systems See HPI for pertinent positives & negatives. ROS limited secondary to AMS/confusion Physical Exam Vital Signs Vital Signs - 24 hr 09/24/18 23:25 09/25/18 04:02 09/25/18 08:06 Temperature 37.1 C 36.8 C 36.7 C Temperature Source Oral Oral Oral Pulse Rate 65 Pulse Rate [Left Finger] Pulse Rate [Right Brachial] 62 58 L 66 Respiratory Rate 17 16 18 Blood Pressure [Left Arm] 123/77 136/83 Blood Pressure [Right Arm] 129/74 Blood Pressure Mean [Left Arm] 92 100 Blood Pressure Mean [Right Arm] 92 Blood Pressure Position [Left Arm] Lying Lying Blood Pressure Position [Right Arm] Pulse Oximetry 94 94 96 Oxygen Delivery Method Room Air Room Air 09/25/18 11:55 09/25/18 12:53 09/25/18 16:00 Temperature 37 C 36.3 C L 36.8 C Temperature Source Oral Oral Oral Pulse Rate Pulse Rate [Left Finger] 52 L Pulse Rate [Right Brachial] 74 64 Respiratory Rate 20 18 18 Blood Pressure [Left Arm] 130/78 Blood Pressure [Right Arm] 88/54 L 110/68 Blood Pressure Mean [Left Arm] 95 Blood Pressure Mean [Right Arm] 65 82 Blood Pressure Position [Left Arm] Lying Blood Pressure Position [Right Arm] Sitting Sitting Pulse Oximetry 99 97 95 Oxygen Delivery Method Room Air Room Air Room Air GENERAL: Awake, chronically-ill appearing. HENT: Normocephalic, atraumatic. Oropharynx unremarkable. Mucous membranes are dry. EYES: Normal conjunctiva. Sclera non-icteric. NECK: Supple. No nuchal rigidity. FROM. No JVD. RESPIRATORY: Clear to auscultation. CARDIAC: Regular rate, normal rhythm. Extremities warm and well perfused. Pulses equal. ABDOMEN: No tenderness to palpation. No rebound or guarding. RECTAL: Deferred. MUSCULOSKELETAL: Chest examination reveals no tenderness. The back is symmetrical on inspection without obvious abnormality. There is no CVA tenderness to palpation. No joint edema. LOWER EXTREMITIES: Calves are equal size bilaterally and non-tender. No edema. No discoloration. NEURO: Normal sensorium. No sensory or motor deficits noted. Moves all 4 extremities. SKIN: No rash or jaundice noted. Course 1250: Past medical records reviewed. The patient was evaluated in room A11B, and a complete history and physical examination were performed. 1400: I reviewed the patient's case with Zofia Rome Jamar LOMBARDI. She will evaluate the patient for further management. Consultations Consultation #1: I reviewed the patient's case with Zofia Roldan PA-C. She will evaluate the patient for further management. Administered Medications Carbidopa/Levodopa (Sinemet 25/100 Mg) 1 tab PO Q8 MARLON Stop: 10/25/18 13:59 Last Admin: 09/25/18 20:36 Dose: 1 tab Admin: 09/25/18 13:32 Dose: 1 tab Docusate Sodium (Colace) 100 mg PO BID MARLON Stop: 10/25/18 13:19 Last Admin: 09/25/18 20:36 Dose: 100 mg Admin: 09/25/18 13:32 Dose: 100 mg Piperacillin Sod/Tazobactam (Sod 3.375 gm/ Dextrose) 115 mls @ 28.75 mls/hr IV Q8H MARLON; Protocol Stop: 10/03/18 15:59 Last Admin: 09/25/18 16:53 Dose: 28.8 mls/hr Infusion: 09/25/18 13:22 Dose: 0 mls/hr Admin: 09/25/18 08:39 Dose: 28.8 mls/hr Infusion: 09/25/18 04:40 Dose: 0 mls/hr Admin: 09/25/18 00:29 Dose: 28.8 mls/hr Infusion: 09/24/18 19:52 Dose: 0 mls/hr Admin: 09/24/18 16:14 Dose: 28.8 mls/hr Parenteral Electrolytes (Normosol-R) 1,000 mls @ 125 mls/hr IV .Q8H MARLON Stop: 10/25/18 11:14 Last Admin: 09/25/18 19:54 Dose: 125 mls/hr Infusion: 09/25/18 19:54 Dose: 125 mls/hr Admin: 09/25/18 12:25 Dose: 125 mls/hr Tamsulosin HCl (Flomax) 0.4 mg PO DAILY [facility] Stop: 10/23/18 17:29 Last Admin: 09/25/18 08:40 Dose: 0.4 mg Admin: 09/24/18 07:59 Dose: 0.4 mg Admin: 09/23/18 18:23 Dose: 0.4 mg Discontinued Medications Heparin Sodium (Porcine) (Heparin Sodium (Porcine)) 5,000 units SQ Q12 MARLON Stop: 10/23/18 20:59 Last Admin: 09/23/18 23:03 Dose: Not Given Sodium Chloride (Nss 1000ml) 1,000 mls @ 999 mls/hr IV .Q1H1M ONE Stop: 09/23/18 13:52 Last Infusion: 09/23/18 14:37 Dose: 0 mls/hr Admin: 09/23/18 13:36 Dose: 999 mls/hr Sodium Chloride (Nss 1000ml) 1,000 mls @ 999 mls/hr IV .Q1H1M ONE Stop: 09/23/18 14:22 Last Infusion: 09/23/18 15:26 Dose: 0 mls/hr Admin: 09/23/18 14:22 Dose: 999 mls/hr Piperacillin Sod/Tazobactam Sod (Zosyn) 4.5 gm in 120 mls @ 240 mls/hr IV NOW ONE Stop: 09/23/18 14:29 Last Infusion: 09/23/18 14:53 Dose: 0 mls/hr Admin: 09/23/18 14:23 Dose: 240 mls/hr Daptomycin 400 mg/ Syringe 8 mls @ 4 mls/min IV NOW ONE Stop: 09/23/18 14:01 Last Admin: 09/23/18 15:56 Dose: 4 mls/min Sodium Bicarbonate 75 meq/ (Sodium Chloride) 1,075 mls @ 100 mls/hr IV .[id number] [facility] Stop: 10/23/18 15:16 Last Infusion: 09/24/18 18:46 Dose: 0 mls/hr Admin: 09/24/18 16:07 Dose: 100 mls/hr Infusion: 09/24/18 15:33 Dose: 100 mls/hr Admin: 09/24/18 04:48 Dose: 100 mls/hr Infusion: 09/24/18 04:48 Dose: 100 mls/hr Admin: 09/23/18 18:12 Dose: 100 mls/hr Piperacillin Sod/Tazobactam (Sod 3.375 gm/ Dextrose) 115 mls @ 28.75 mls/hr IV Q12H MARLON; Protocol Stop: 10/03/18 19:59 Last Infusion: 09/24/18 11:57 Dose: 0 mls/hr Admin: 09/24/18 07:56 Dose: 28.8 mls/hr Infusion: 09/24/18 00:38 Dose: 0 mls/hr Admin: 09/23/18 20:49 Dose: 28.8 mls/hr Daptomycin 400 mg/ Syringe 8 mls @ 4 mls/min IV Q48H MARLON; Protocol Stop: 10/03/18 17:59 Last Admin: 09/23/18 18:24 Dose: 4 mls/min Sodium Chloride (Nss 1000ml) 1,000 mls @ 125 mls/hr IV .Q8H MARLON Stop: 10/24/18 18:14 Last Admin: 09/25/18 13:23 Dose: Not Given Infusion: 09/25/18 13:23 Dose: 0 mls/hr Admin: 09/25/18 00:36 Dose: 125 mls/hr Infusion: 09/25/18 00:36 Dose: 125 mls/hr Admin: 09/24/18 18:45 Dose: 125 mls/hr Medical Decision Making Differential Diagnosis Differential includes acute coronary syndrome, myocardial infarction, CVA, TIA , anemia, infection, pneumonia, UTI, pyelonephritis, poor nutrition, dehydration , electrolyte disturbance,hypoglycemia. Medical Records Attestation: I reviewed the patient's medical records. Home Medications Current Medication List: was personally reviewed by me Laboratory Data Attestation: I reviewed the patient's lab results. Result diagrams: 09/25/18 05:35 09/25/18 05:35 Lab Results 09/23/18 09/23/18 09/23/18 Range/Units 12:08 12:08 12:08 WBC 27.36 H (4.8-10.8) K/uL RBC 4.50 L (4.7-6.1) M/uL Hgb 13.4 L (14.0-18.0) g/dL Hct 40.0 L (42-52) % MCV 88.9 (80-100) fL MCH 29.8 (25-34) pg MCHC 33.5 (32-36) g/dL RDW Std Deviation 47.7 H (36.4-46.3) fL RDW Coeff of Kayley 14.6 H (11.5-14.5) % Plt Count 129 L (130-400) K/uL MPV 9.7 (7.4-10.4) fL Immature Gran % (Auto) 0.9 % Neut % (Auto) 92.7 % Lymph % (Auto) 2.6 % Waldo % (Auto) 3.8 % Eos % (Auto) 0.0 % Baso % (Auto) 0.0 % Immature Gran # (Auto) 0.25 H (0.00-0.02) K/uL Neut # (Auto) 25.35 H (1.4-6.5) K/uL Lymph # (Auto) 0.72 L (1.2-3.4) K/uL Waldo # (Auto) 1.03 H (0.11-0.59) K/uL Eos # (Auto) 0.00 (0-0.5) K/uL Baso # (Auto) 0.01 (0-0.2) K/uL Toxic Vacuolation 1+ PT (9.0-12.0) Seconds INR (0.9-1.1) Sodium 136 (136-145) mmol/L Potassium 4.6 (3.5-5.1) mmol/L Chloride 103 (98-107) mmol/L Carbon Dioxide 20 L (21-32) mmol/L Anion Gap 12.0 H (3-11) BUN 82 H (7-18) mg/dl Creatinine 5.36 H* (0.6-1.4) mg/dl Est Cr Clr Drug Dosing 11.5 ml/min Est GFR ( Amer) 11.2 Est GFR (Non-Af Amer) 9.6 BUN/Creatinine Ratio 15.3 (10-20) Glucose 99 (70-99) mg/dl POC Glucose (70-99) Lactate (0.4-2.0) mmol/L Calcium 8.9 (8.5-10.1) mg/dl Ionized Calcium (1.12-1.32) mmol/L Phosphorus (2.5-4.9) mg/dl Magnesium (1.8-2.4) mg/dl Total Bilirubin 1.4 H (0.2-1) mg/dl Direct Bilirubin (0-0.2) mg/dl AST 11 L (15-37) U/L ALT 6 L (12-78) U/L Alkaline Phosphatase 62 (45-117) U/L Total Creatine Kinase 59 (39-308) U/L CK-MB (CK-2) 1.8 (0.5-3.6) ng/ml CK/CKMB % Calc 3.1 H (0-3.0) Troponin I < 0.015 (0-0.045) ng/ml Total Protein 6.4 (6.4-8.2) gm/dl Albumin 2.9 L (3.4-5.0) gm/dl Globulin 3.5 (2.5-4.0) gm/dl Albumin/Globulin Ratio 0.8 L (0.9-2) Prostate Specific Ag (0-4) ng/ml TSH (0.300-4.500) uIu/ml Urine Color Urine Appearance (Clear) Urine pH (4.5-7.5) Ur Specific Oakley (1.000-1.030) Urine Protein (Negative) Urine Glucose (UA) (Negative) Urine Ketones (Negative) Urine Blood (Negative) Urine Nitrite (Negative) Urine Bilirubin (Negative) Urine Urobilinogen (Negative) Ur Leukocyte Esterase (Negative) Urine WBC (Auto) (0-5) /hpf Urine RBC (Auto) (0-4) /hpf U Hyaline Cast (Auto) (0-5) /lpf U Epithel Cells (Auto) (0-5) /lpf Urine Bacteria (Auto) (Negative) 09/23/18 09/23/18 09/23/18 Range/Units 14:05 15:55 17:14 WBC (4.8-10.8) K/uL RBC (4.7-6.1) M/uL Hgb (14.0-18.0) g/dL Hct (42-52) % MCV (80-100) fL MCH (25-34) pg MCHC (32-36) g/dL RDW Std Deviation (36.4-46.3) fL RDW Coeff of Kayley (11.5-14.5) % Plt Count (130-400) K/uL MPV (7.4-10.4) fL Immature Gran % (Auto) % Neut % (Auto) % Lymph % (Auto) % Waldo % (Auto) % Eos % (Auto) % Baso % (Auto) % Immature Gran # (Auto) (0.00-0.02) K/uL Neut # (Auto) (1.4-6.5) K/uL Lymph # (Auto) (1.2-3.4) K/uL Waldo # (Auto) (0.11-0.59) K/uL Eos # (Auto) (0-0.5) K/uL Baso # (Auto) (0-0.2) K/uL Toxic Vacuolation PT (9.0-12.0) Seconds INR (0.9-1.1) Sodium (136-145) mmol/L Potassium (3.5-5.1) mmol/L Chloride (98-107) mmol/L Carbon Dioxide (21-32) mmol/L Anion Gap (3-11) BUN (7-18) mg/dl Creatinine (0.6-1.4) mg/dl Est Cr Clr Drug Dosing ml/min Est GFR ( Amer) Est GFR (Non-Af Amer) BUN/Creatinine Ratio (10-20) Glucose (70-99) mg/dl POC Glucose (70-99) Lactate 1.6 (0.4-2.0) mmol/L Calcium (8.5-10.1) mg/dl Ionized Calcium 1.17 (1.12-1.32) mmol/L Phosphorus (2.5-4.9) mg/dl Magnesium (1.8-2.4) mg/dl Total Bilirubin (0.2-1) mg/dl Direct Bilirubin (0-0.2) mg/dl AST (15-37) U/L ALT (12-78) U/L Alkaline Phosphatase (45-117) U/L Total Creatine Kinase (39-308) U/L CK-MB (CK-2) (0.5-3.6) ng/ml CK/CKMB % Calc (0-3.0) Troponin I (0-0.045) ng/ml Total Protein (6.4-8.2) gm/dl Albumin (3.4-5.0) gm/dl Globulin (2.5-4.0) gm/dl Albumin/Globulin Ratio (0.9-2) Prostate Specific Ag (0-4) ng/ml TSH (0.300-4.500) uIu/ml Urine Color Grulla Urine Appearance Cloudy H (Clear) Urine pH >= 9.0 H (4.5-7.5) Ur Specific Oakley 1.009 (1.000-1.030) Urine Protein 2+ H (Negative) Urine Glucose (UA) Negative (Negative) Urine Ketones Negative (Negative) Urine Blood 3+ H (Negative) Urine Nitrite Positive H (Negative) Urine Bilirubin Negative (Negative) Urine Urobilinogen Negative (Negative) Ur Leukocyte Esterase 3+ H (Negative) Urine WBC (Auto) >30 H (0-5) /hpf Urine RBC (Auto) >30 H (0-4) /hpf U Hyaline Cast (Auto) 1-5 (0-5) /lpf U Epithel Cells (Auto) 0-5 (0-5) /lpf Urine Bacteria (Auto) 2+ H (Negative) 09/23/18 09/23/18 09/23/18 Range/Units 17:14 19:40 19:40 WBC (4.8-10.8) K/uL RBC (4.7-6.1) M/uL Hgb (14.0-18.0) g/dL Hct (42-52) % MCV (80-100) fL MCH (25-34) pg MCHC (32-36) g/dL RDW Std Deviation (36.4-46.3) fL RDW Coeff of Kayley (11.5-14.5) % Plt Count (130-400) K/uL MPV (7.4-10.4) fL Immature Gran % (Auto) % Neut % (Auto) % Lymph % (Auto) % Waldo % (Auto) % Eos % (Auto) % Baso % (Auto) % Immature Gran # (Auto) (0.00-0.02) K/uL Neut # (Auto) (1.4-6.5) K/uL Lymph # (Auto) (1.2-3.4) K/uL Waldo # (Auto) (0.11-0.59) K/uL Eos # (Auto) (0-0.5) K/uL Baso # (Auto) (0-0.2) K/uL Toxic Vacuolation PT 11.3 (9.0-12.0) Seconds INR 1.1 (0.9-1.1) Sodium 139 (136-145) mmol/L Potassium 3.7 D (3.5-5.1) mmol/L Chloride 108 H (98-107) mmol/L Carbon Dioxide 22 (21-32) mmol/L Anion Gap 9.0 (3-11) BUN 69 H (7-18) mg/dl Creatinine 3.79 H D (0.6-1.4) mg/dl Est Cr Clr Drug Dosing 16.3 ml/min Est GFR ( Amer) 17.0 Est GFR (Non-Af Amer) 14.6 BUN/Creatinine Ratio 18.2 (10-20) Glucose 155 H (70-99) mg/dl POC Glucose (70-99) Lactate (0.4-2.0) mmol/L Calcium 8.1 L (8.5-10.1) mg/dl Ionized Calcium (1.12-1.32) mmol/L Phosphorus 3.2 (2.5-4.9) mg/dl Magnesium 2.2 (1.8-2.4) mg/dl Total Bilirubin (0.2-1) mg/dl Direct Bilirubin (0-0.2) mg/dl AST (15-37) U/L ALT (12-78) U/L Alkaline Phosphatase (45-117) U/L Total Creatine Kinase (39-308) U/L CK-MB (CK-2) (0.5-3.6) ng/ml CK/CKMB % Calc (0-3.0) Troponin I (0-0.045) ng/ml Total Protein (6.4-8.2) gm/dl Albumin (3.4-5.0) gm/dl Globulin (2.5-4.0) gm/dl Albumin/Globulin Ratio (0.9-2) Prostate Specific Ag 20.500 H (0-4) ng/ml TSH 0.975 (0.300-4.500) uIu/ml Urine Color Urine Appearance (Clear) Urine pH (4.5-7.5) Ur Specific Oakley (1.000-1.030) Urine Protein (Negative) Urine Glucose (UA) (Negative) Urine Ketones (Negative) Urine Blood (Negative) Urine Nitrite (Negative) Urine Bilirubin (Negative) Urine Urobilinogen (Negative) Ur Leukocyte Esterase (Negative) Urine WBC (Auto) (0-5) /hpf Urine RBC (Auto) (0-4) /hpf U Hyaline Cast (Auto) (0-5) /lpf U Epithel Cells (Auto) (0-5) /lpf Urine Bacteria (Auto) (Negative) 09/24/18 09/24/18 09/24/18 Range/Units 05:29 05:29 11:40 WBC 14.57 H D (4.8-10.8) K/uL RBC 3.83 L (4.7-6.1) M/uL Hgb 11.2 L (14.0-18.0) g/dL Hct 34.0 L (42-52) % MCV 88.8 (80-100) fL MCH 29.2 (25-34) pg MCHC 32.9 (32-36) g/dL RDW Std Deviation 47.6 H (36.4-46.3) fL RDW Coeff of Kayley 14.6 H (11.5-14.5) % Plt Count 103 L (130-400) K/uL MPV 10.1 (7.4-10.4) fL Immature Gran % (Auto) 0.4 % Neut % (Auto) 91.3 % Lymph % (Auto) 4.1 % Waldo % (Auto) 3.6 % Eos % (Auto) 0.6 % Baso % (Auto) 0.0 % Immature Gran # (Auto) 0.06 H (0.00-0.02) K/uL Neut # (Auto) 13.30 H (1.4-6.5) K/uL Lymph # (Auto) 0.60 L (1.2-3.4) K/uL Waldo # (Auto) 0.52 (0.11-0.59) K/uL Eos # (Auto) 0.09 (0-0.5) K/uL Baso # (Auto) 0.00 (0-0.2) K/uL Toxic Vacuolation PT (9.0-12.0) Seconds INR (0.9-1.1) Sodium 140 (136-145) mmol/L Potassium 3.5 (3.5-5.1) mmol/L Chloride 110 H (98-107) mmol/L Carbon Dioxide 23 (21-32) mmol/L Anion Gap 7.0 (3-11) BUN 49 H (7-18) mg/dl Creatinine 1.74 H D (0.6-1.4) mg/dl Est Cr Clr Drug Dosing 34.9 ml/min Est GFR ( Amer) 43.5 Est GFR (Non-Af Amer) 37.5 BUN/Creatinine Ratio 28.1 H (10-20) Glucose 83 (70-99) mg/dl POC Glucose 103 H (70-99) Lactate (0.4-2.0) mmol/L Calcium 7.6 L (8.5-10.1) mg/dl Ionized Calcium (1.12-1.32) mmol/L Phosphorus 2.8 (2.5-4.9) mg/dl Magnesium 2.2 (1.8-2.4) mg/dl Total Bilirubin 0.8 D (0.2-1) mg/dl Direct Bilirubin 0.2 (0-0.2) mg/dl AST 7 L (15-37) U/L ALT 9 L (12-78) U/L Alkaline Phosphatase 46 (45-117) U/L Total Creatine Kinase (39-308) U/L CK-MB (CK-2) (0.5-3.6) ng/ml CK/CKMB % Calc (0-3.0) Troponin I (0-0.045) ng/ml Total Protein 5.1 L D (6.4-8.2) gm/dl Albumin 2.1 L (3.4-5.0) gm/dl Globulin 3.0 (2.5-4.0) gm/dl Albumin/Globulin Ratio 0.7 L (0.9-2) Prostate Specific Ag (0-4) ng/ml TSH (0.300-4.500) uIu/ml Urine Color Urine Appearance (Clear) Urine pH (4.5-7.5) Ur Specific Oakley (1.000-1.030) Urine Protein (Negative) Urine Glucose (UA) (Negative) Urine Ketones (Negative) Urine Blood (Negative) Urine Nitrite (Negative) Urine Bilirubin (Negative) Urine Urobilinogen (Negative) Ur Leukocyte Esterase (Negative) Urine WBC (Auto) (0-5) /hpf Urine RBC (Auto) (0-4) /hpf U Hyaline Cast (Auto) (0-5) /lpf U Epithel Cells (Auto) (0-5) /lpf Urine Bacteria (Auto) (Negative) 09/25/18 09/25/18 Range/Units 05:35 05:35 WBC 9.18 (4.8-10.8) K/uL RBC 3.92 L (4.7-6.1) M/uL Hgb 11.4 L (14.0-18.0) g/dL Hct 34.8 L (42-52) % MCV 88.8 (80-100) fL MCH 29.1 (25-34) pg MCHC 32.8 (32-36) g/dL RDW Std Deviation 46.6 H (36.4-46.3) fL RDW Coeff of Kayley 14.4 (11.5-14.5) % Plt Count 100 L (130-400) K/uL MPV 9.9 (7.4-10.4) fL Immature Gran % (Auto) % Neut % (Auto) % Lymph % (Auto) % Waldo % (Auto) % Eos % (Auto) % Baso % (Auto) % Immature Gran # (Auto) (0.00-0.02) K/uL Neut # (Auto) (1.4-6.5) K/uL Lymph # (Auto) (1.2-3.4) K/uL Waldo # (Auto) (0.11-0.59) K/uL Eos # (Auto) (0-0.5) K/uL Baso # (Auto) (0-0.2) K/uL Toxic Vacuolation PT (9.0-12.0) Seconds INR (0.9-1.1) Sodium 141 (136-145) mmol/L Potassium 3.8 (3.5-5.1) mmol/L Chloride 110 H (98-107) mmol/L Carbon Dioxide 26 (21-32) mmol/L Anion Gap 5.0 (3-11) BUN 29 H (7-18) mg/dl Creatinine 1.09 (0.6-1.4) mg/dl Est Cr Clr Drug Dosing 55.7 ml/min Est GFR ( Amer) 76.5 Est GFR (Non-Af Amer) 66.0 BUN/Creatinine Ratio 26.8 H (10-20) Glucose 86 (70-99) mg/dl POC Glucose (70-99) Lactate (0.4-2.0) mmol/L Calcium 7.6 L (8.5-10.1) mg/dl Ionized Calcium (1.12-1.32) mmol/L Phosphorus (2.5-4.9) mg/dl Magnesium (1.8-2.4) mg/dl Total Bilirubin (0.2-1) mg/dl Direct Bilirubin (0-0.2) mg/dl AST (15-37) U/L ALT (12-78) U/L Alkaline Phosphatase (45-117) U/L Total Creatine Kinase (39-308) U/L CK-MB (CK-2) (0.5-3.6) ng/ml CK/CKMB % Calc (0-3.0) Troponin I (0-0.045) ng/ml Total Protein (6.4-8.2) gm/dl Albumin (3.4-5.0) gm/dl Globulin (2.5-4.0) gm/dl Albumin/Globulin Ratio (0.9-2) Prostate Specific Ag (0-4) ng/ml TSH (0.300-4.500) uIu/ml Urine Color Urine Appearance (Clear) Urine pH (4.5-7.5) Ur Specific Oakley (1.000-1.030) Urine Protein (Negative) Urine Glucose (UA) (Negative) Urine Ketones (Negative) Urine Blood (Negative) Urine Nitrite (Negative) Urine Bilirubin (Negative) Urine Urobilinogen (Negative) Ur Leukocyte Esterase (Negative) Urine WBC (Auto) (0-5) /hpf Urine RBC (Auto) (0-4) /hpf U Hyaline Cast (Auto) (0-5) /lpf U Epithel Cells (Auto) (0-5) /lpf Urine Bacteria (Auto) (Negative) Imaging Data Attestation: I personally reviewed and interpreted this imaging study as follows : Radiologist's Impression: CT SCAN OF THE BRAIN WITHOUT IV CONTRAST CLINICAL HISTORY: Change in mental status. COMPARISON STUDY: CT of the brain dated 09/21/2018. TECHNIQUE: Unenhanced axial CT scan of the brain is performed from the vertex to the skull base. A dose lowering technique was utilized adhering to the principles of ALARA. FINDINGS: Brain parenchyma: There are age-related involutional changes noting mild subcortical and periventricular microangiopathic change. There is no hemorrhage , mass effect, or evidence of acute territorial ischemia by CT criteria. Vargas- white matter differentiation is preserved. No extra-axial fluid collection is seen. Ventricles, sulci, cisterns: Prominent secondary to involutional change. Intracranial vasculature: There is atherosclerotic calcification of the cavernous carotid arteries. Calvarium: Unremarkable. Sinuses and mastoids: Mild mucosal thickening is noted in the maxillary antra. The remaining visualized paranasal sinuses are clear. The mastoid air cells are well pneumatized. Orbits: The bony orbits are grossly intact. IMPRESSION: There is no hemorrhage, mass effect, or evidence of acute territorial ischemia by CT criteria. Electronically signed by: Claudio Reed M.D. 09/23/2018 1:30 PM XR chest 1V portable HISTORY: 73 years-old Male Pt ARF acute renal failure. COMPARISON: Chest radiograph 09/21/2018 TECHNIQUE: Portable AP view of the chest FINDINGS: Cardiac silhouette is mildly enlarged, unchanged. Opacity about the right paratracheal tissues is also unchanged. Hiatal hernia. No pneumothorax, pleural effusion or overt pulmonary edema. Linear subsegmental retrocardiac opacities about the left lung base suggest atelectasis/scarring. The mineralized appearance of the bones. Degenerative changes of the shoulders and spine. Mildly displaced fracture about the lateral aspect right fifth rib redemonstrated which appears subacute or chronic. IMPRESSION: 1. Mild cardiomegaly without overt pulmonary edema. 2. Hiatal hernia. 2. Retrocardiac opacities about the left lung base suggest atelectasis/ scarring. The above report was generated using voice recognition software. It may contain grammatical, syntax or spelling errors. Electronically signed by: Emanuel Browne M.D. 09/23/2018 1:16 PM ABDOMEN AND PELVIS CT WITHOUT CONTRAST CT DOSE: 1025.17 mGy.cm HISTORY: Acute renal failure Pt ARF TECHNIQUE: Multiaxial CT images of the abdomen and pelvis were performed without contrast. A dose lowering technique was utilized adhering to the principles of ALARA. COMPARISON STUDY: None. FINDINGS: Trace pleural effusions. Subsegmental bibasilar opacities are suggestive of atelectasis. No pneumatosis or pneumoperitoneum. Imaged inferior cardiac chambers are moderately enlarged with trace pericardial effusion. Study is limited without the use of IV or oral contrast. Cholelithiasis without definite CT evidence of acute cholecystitis. There are several hypodense lesions about the liver, largest of which measures 3.9 x 2.2 cm about the subcapsular right hepatic lobe suggestive of a cyst. Additional probable cyst measures 1.2 cm within the left hepatic lobe. Indeterminate hypodense 6 mm lesion of the right hepatic lobe on image 13 series 4 is too small to characterize. No intrahepatic biliary ductal dilation or evidence of cirrhosis. Spleen measures within the upper limits of normal in size. There is a nodular cystic lesion about the pancreatic tail measuring 2.3 x 1.6 cm. Mild generalized pancreatic atrophy. No pancreatic ductal dilation. Moderate thickening of the bilateral adrenal glands. Moderate bilateral perinephric stranding. Linear 5 mm calcification projects over the anterior aspect of the inferior pole right kidney. There are at least 2 nonobstructing calculi about the left kidney measuring up to 4 mm. Moderate bilateral hydroureteronephrosis with periureteral inflammatory stranding. Marked distention of the urinary bladder lumen measures up to 11.6 x 14.4 x 19.1 cm and contains multiple bladder diverticula along with circumferential wall thickening, urinary bladder wall trabeculation and extensive perivesicular inflammatory stranding and reactive free fluid. Large bladder calculi are seen dependently within a diverticulum of the posterior inferior bladder measuring up to 1.9 cm. Marked enlargement of the prostate gland measuring up to 5.8 cm transversely. Calcifications are seen centrally about the prostate. Small left and moderate right fat filled hernias. Calcification tortuosity about the abdominal aorta. Moderate hiatal hernia. Nonspecific mildly prominent retrocrural lymph nodes measure up to 7 mm. No small bowel obstruction. Nonspecific mild rectal wall thickening. Colonic diverticulosis without acute diverticulitis. Tubular structure suggestive of a normal appendix is noted within the abdominal right lower quadrant. Mild generalized body wall edema. Deep tissue air is noted about the anterior chondral portion of the right seventh rib. Multilevel spondylitic spurring with facet arthrosis. Chronic posttraumatic appearing bony fusion at the L1-L2 level. No acute fracture identified. IMPRESSION: 1. Marked prostamegaly with severe urinary bladder distention, bladder wall thickening, trabeculation, perivesicular edema and reactive free fluid suggests sequela of chronic bladder outlet obstruction with probable cystitis. Correlate with urinalysis. 2. Moderate bilateral hydroureteronephrosis with nonobstructing left nephrolithiasis. Several large dependent bladder calculi are also noted. 3. Cholelithiasis without CT evidence of acute cholecystitis. 4. Trace bilateral pleural effusions. 5. Colonic diverticulosis without acute diverticulitis. 6. Moderate hiatal hernia. 7. Cardiomegaly with trace pericardial effusion. 8. Additional findings as above. Electronically signed by: Emanuel Browne M.D. 09/23/2018 1:44 PM Blood Pressure Blood Pressure Findings: Elevated blood pressure Blood Pressure Disposition: elevated BP felt to be situational MDM Narrative This is a 73-year-old male who presents emergency department with altered mental status. I will note the patient was here 48 hours ago and was placed at [facility]. Today the patient's creatinine was found to be 5. Due to the nature of the change within the past 48 hours the patient was immediately sent for a CAT scan of the head as well as the abdomen and pelvis. Patient was found to be in acute urinary retention and a Ulrich catheter was placed. The patient immediately drained 1.7 L of urine. Because of the acute kidney failure I did discuss the case with the hospitalist service who agreed to see the patient. Patient does have an elevation in his white blood cell count and was started on antibiotics. Impression & Plan Acute renal failure, Acute urinary retention Critical Care Time I have personally spent greater than 30 minutes of critical care time in the direct management of this patient. This includes bedside care, interpretation of diagnostic studies, and testing, discussion with consultants, patient, and family members, and other required patient management activities. This 30 minutes is in excess of all separately billable procedures. Critical Care Time: Yes Total Critical Care Time: 30 Discharge Plan Visit Data *Final* Discharge Date/Time: 09/23/18 16:37 Chief Complaint: Referred by Doctor Stated Complaint: SENT FROM AT [facility] ED Provider: Dominik Delagdo Discharge Problem: Acute renal failure, Acute urinary retention Patient Disposition: Admitted As Inpatient Discharge Instructions Interventions: ED Discharge Assessment Last Done: 09/23/18 16:37 The scribe's documentation has been prepared under my direction and personally reviewed by me in its entirety. I confirm that the note above accurately reflects all work, treatment, procedures, and medical decision making performed by me.
--- NOTE | 2018-09-25 19:33 | Hospitalist Progress Note ---
Date of Service September 25, 2018 Assessment & Plan (1) Acute renal failure: Resolved, creatinine normalized Secondary to obstructive uropathy Presented with creatinine 5.3 (creatinine was 0.79 on 09/21/2018 Bicarb drip discontinued Continue with normal soul at the rate of [address] abd/pelvis: Marked prostamegaly with severe urinary bladder distention, bladder wall thickening, trabeculation, perivesicular edema and reactive free fluid suggests sequela of chronic bladder outlet obstruction with probable cystitis. Moderate bilateral hydroureteronephrosis with nonobstructing left nephrolithiasis. Several large dependent bladder calculi are also noted. Adams catheter placed, but adequate urine output Creatinine improved: 5.36�3.7�1.74-1.09 -nephrology consulted -appreciate input - recommended 1/2NSS with 75meq/L sodium bicarb at 100ml/hr Improvement of creatinine as outlined above Bicarb 22 We will DC bicarb drip Patient will be continued with normal saline at the rate 125 ml/h Repeat BMP in a.m. - (2) Sepsis: Presented with sepsis, meets criteria, leukocytosis white count 27, thrombocytopenia, tachypnea Possible source of infection: UTI Marked urinary retention/obstruction UA positive nitrite +3 leukocyte esterase, more than 30 WBC, more than 30 RBC, + 2 bacteria Patient was empirically started with IV daptomycin/Zosyn -lactate:1.6 Follow urine and blood culture -possible source of infection -UTI cont Zosyn -urine culture gram-negative bacilli will follow culture and sensitivity D/C Daptomycin Leukocytosis resolved 27�14 .5-9.8 today (3) Acute urinary retention: Possible secondary to enlarged prostate/bladder outlet obstruction CT abdomen pelvis shows severely urinary bladder distention, bladder wall thickening is, enlarged prostate Adams placed Creatinine improved after resolution of bladder retention, IV hydration Urology consulted, appreciate input developed hematuria -possible due to traumatic catheter placement (4) Enlarged prostate: Urinary retention noted in ER. Had adams placed noted to have hematuria Pt reports decreased urine stream for years and has noticed scrotal enlargement for years that is non-tender CT Abd/pelvis: 1. Marked prostamegaly with severe urinary bladder distention, bladder wall thickening, trabeculation, perivesicular edema and reactive free fluid suggests sequela of chronic bladder outlet obstruction with probable cystitis. Correlate with urinalysis. 2. Moderate bilateral hydroureteronephrosis with nonobstructing left nephrolithiasis. Several large dependent bladder calculi are also noted. -PSA > 20 -started on flomax -urology consult appreciate recommendations -Recommend continue Adams catheter Repeat PSA level in 2-3 months Will need outpatient cystoscopy (5) Metabolic encephalopathy: due to infection /acute renal failure /uremia -metabolic encephalopathy Reported altered mental status over past several weeks. Noted improvement by family today. Probable secondary to underlying infection CT Head: no acute changes. -currently alert, oriented to person and place , with episodes of confusion (6) Pericardial effusion: CT abd/pelvis noted trace pericardial effusion. possible due to acute renal failure /uremia -echo : Small loculated anterior pericardial effusion without hemodynamic significance/no evidence of tamponade Normal LV function, no wall motion abnormality (7) Tremor: Noted tremor bilateral hands. Reported shuffled gait and tremor for years. -consider neurology referral (8) Failure to thrive: Pt living in house without running water and not eating or drinking well Patient was at [facility] recently Plan to return back to [facility] when medically stable Per PT OT evaluation CODE STATUS: Full code DVT Prophylaxis DC subcu heparin: Secondary to thrombocytopenia SCD and Teds Subjective Offers no new complaint Denies of any abdominal pain, no nausea No cough or shortness of breath Physical Exam 2 Vital Signs (Past 24 Hours): Last Vital Signs Temp 36.8 C 09/25/18 16:00 Pulse 52 L 09/25/18 16:00 Resp 18 09/25/18 16:00 BP 130/78 09/25/18 16:00 Pulse Ox 95 09/25/18 16:00 Constitutional: + ill appearing, + thin and + disheveled Eyes: + anicteric sclerae ENMT: Ears: no hearing impairment Mouth: no lip abnormality, no oral mucosal abnormality and no tongue abnormality Respiratory: normal respiratory effort; no respiratory distress and no labored breathing Auscultation: no crackles, no rales and no wheezes Cardiovascular: Rate/Rhythm: regular rate and regular rhythm Gastrointestinal (Abdomen): Inspection/Auscultation: abdomen normal to inspection Percussion/Palpation: abdomen soft; abdomen nontender Musculoskeletal: Head/Neck/Chest: normocephalic and head atraumatic Neurologic: PERRL, EOMI, accommodation nl, no face palsy, no dysarthria Psychiatric: Orientation: alert, oriented to person and oriented to place _ (1) Acute renal failure Acute renal failure type: (2) Failure to thrive Failure to thrive age range: in adult Qualified Code(s): R62.7 - Adult failure to thrive
[2018-09-26] MEDS: NORMOSOL-R 1,000 ML IV SCH (03:03)
[2018-09-26] MEDS: CARBIDOPA/LEVODOPA 25/100MG TAB PO SCH (06:30)
[2018-09-26 07:28] LABS: Hematocrit (blood only) 36.2 % (42-52); Hemoglobin 11.7 g/dL (14.0-18.0); Mean Corpuscular Hgb Conc 32.3 g/dL (32-36); Mean Corpuscular Volume 89.4 fL (80-100); Mean Platelet Volume 9.7 fL (7.4-10.4); Platelet Count 104 K/uL (130-400); RDW Standard Deviation 46.3 fL (36.4-46.3); Red Blood Count 4.05 M/uL (4.7-6.1); White Blood Count 6.77 K/uL (4.8-10.8)
[2018-09-26 08:00] LABS: BUN Creatinine Ratio 20.7 (10-20); Calcium 7.7 mg/dl (8.5-10.1); Creatinine Clr Calc Pharmacy 69.7 ml/min; Est GFR (African American) 97.4; Potassium 3.8 mmol/L (3.5-5.1)
[2018-09-26] MEDS: DOCUSATE SODIUM 100 MG CAP PO SCH (10:19)
--- NOTE | 2018-09-26 10:19 | Urology Progress Note ---
Date of Service September 26, 2018 Assessment & Plan (1) Acute urinary retention: - renal fx has entirely recovered (cr 0.88) - must keep catheter in place to prevent recurrent renal failure - initial UCx with black sensitive proteus - likely should be covered for 10d - tentative plan for [facility] placement - will need subsequent f/u to discuss options for restoring voiding - given resolution of acute issues thus far, we will plan to next assess him as an outpt - please call if further issues during the hospitalization Subjective denies major complaints denies significant ambulation, etc - no pain - hungry/tolerating diet Physical Exam 2 Vital Signs (Past 24 Hours): Last Vital Signs Temp 36.6 C 09/26/18 07:00 Pulse 59 L 09/26/18 07:00 Resp 18 09/26/18 07:00 BP 138/86 09/26/18 07:00 Pulse Ox 93 09/26/18 07:00 Physical Exam: resting in bed AFVSS nad aaox3 no resp distress rrr abd soft urine clear (adams) no edema
[2018-09-26] MEDS: TAMSULOSIN HCL 0.4 MG CAP PO SCH (10:20)
[2018-09-26] MEDS ORDERED: CIPROFLOXACIN 500 MG TAB PO STA (12:17)
[2018-09-26] MEDS ORDERED: CIPROFLOXACIN HCL 0.3% OP SOLN 2.5 ML BTL OP ONE (12:18)
--- NOTE | 2018-09-26 13:06 | Discharge Summary ---
Date of Service September 26, 2018 Admission HPI Per Admitting Provider Pt is 73 y/o M without known medical problems who has not followed with PCP for greater than 30 years presented to ER from [facility] for worsening renal functions and altered mental status. Pt was seen in ER on 09/21/18 for increased confusion over past several weeks which was noted by his cousin and commercial drone pilot. Pt lives at home without any running water or modern bathroom facilities and it is reported he has been drinking water out of a spring and using depends or plastic bags for toileting. States has noted a tremor to bilateral hands and shuffling walking gait for years. Cousin and Algologist report past 2 days severe confusion and yesterday he was unable to feed himself. They state today pt is less confused and has even been making some jokes. They report he complained of some back pain a couple of days ago but were unsure with his AMS. Pt was started on Sinemet yesterday for suspected Parkinson's. Pt reports history decreased urine stream for years and has noticed scrotal enlargement for years that is non-tender. He reports chronic dry skin and admits to picking/scratching at skin. Denies fever/chills, diaphoresis, N/V/D/C , BARRERA, dizziness, syncope, vision changes, neck pain, CP, SOB, orthopnea, palpitations, cough, sore throat, choking, otalgia, rhinorrhea, abdominal pain, paresthesias, dysuria, hematuria, melena, hematochezia. In ER 2 days ago pt had normal WBC, BUN: 28 and Cr: 0.79 and was noted to appear dehydrated and was given some IVF and discharged to [facility]hab. Today had outpatient labs noting Cr: 5. Principal Diagnosis ACUTE RENAL FAILURE /URINARY RETENTION /COMPLICATED UTI Discharge Exam Constitutional + ill appearing, + thin and + disheveled Eyes + anicteric sclerae ENMT Ears: no hearing impairment Mouth: no lip abnormality, no oral mucosal abnormality and no tongue abnormality Respiratory normal respiratory effort; no respiratory distress and no labored breathing Auscultation: no crackles, no rales and no wheezes Cardiovascular Rate/Rhythm: regular rate and regular rhythm Gastrointestinal (Abdomen) Inspection/Auscultation: abdomen normal to inspection Percussion/Palpation: abdomen soft; abdomen nontender Musculoskeletal Head/Neck/Chest: normocephalic and head atraumatic Neurologic PERRL, EOMI, accommodation nl, no face palsy, no dysarthria Psychiatric Orientation: alert, oriented to person and oriented to place Discharge Data Allergies Allergy/AdvReac Type Severity Reaction Status Date / Time No Known Allergies Allergy Unverified 09/23/18 13:37 Consultations 09/23/18 14:00 ED Decision to Admit Stat 09/23/18 17:06 Consult Case Management - Discharge Planning Routine Consult Nephrology Routine Consult Urology Routine Ordered Studies 09/23/18 12:52 CT abd pelvis wo con Stat CT head/brain wo con Stat Hospital Course (1) UTI (urinary tract infection): urine culture proteus pain sensitive ABx changed to PO Cipro will need 10 days tx (2) Acute renal failure: Resolved, creatinine normalized cr 0.88 Secondary to obstructive uropathy Presented with creatinine 5.3 (creatinine was 0.[address] abd/pelvis: Marked prostamegaly with severe urinary bladder distention, bladder wall thickening, trabeculation, perivesicular edema and reactive free fluid suggests sequela of chronic bladder outlet obstruction with probable cystitis. Moderate bilateral hydroureteronephrosis with nonobstructing left nephrolithiasis. Several large dependent bladder calculi are also noted. Young catheter placed, but adequate urine output Creatinine improved: 5.36�3.7�1.74-1.09-> 0.88 -nephrology consulted -appreciate input - stable to be discharged to Acute rehab today cont Young on discharge out pt follow up with urology - (3) Sepsis: Presented with sepsis, meets criteria, leukocytosis white count 27, thrombocytopenia, tachypnea source of infection: UTI/proteus Marked urinary retention/obstruction UA positive nitrite +3 leukocyte esterase, more than 30 WBC, more than 30 RBC, + 2 bacteria Urine culture proteus , black sensitive initially treated with IV Zosyn changed to PO Cipro for total 10 days Leukocytosis resolved 27�14 .5-9.8 today (4) Acute urinary retention: Possible secondary to enlarged prostate/bladder outlet obstruction CT abdomen pelvis shows severely urinary bladder distention, bladder wall thickening is, enlarged prostate Young placed Creatinine improved after resolution of bladder retention, IV hydration Urology consulted, appreciate input developed hematuria -possible due to traumatic catheter placement /UTI resolved pt will be discharged to [facility] with [facility] out pt follow up with Urology (5) Enlarged prostate: Urinary retention noted in ER. Had young placed noted to have hematuria Pt reports decreased urine stream for years and has noticed scrotal enlargement for years that is non-tender CT Abd/pelvis: 1. Marked prostamegaly with severe urinary bladder distention, bladder wall thickening, trabeculation, perivesicular edema and reactive free fluid suggests sequela of chronic bladder outlet obstruction with probable cystitis. Correlate with urinalysis. 2. Moderate bilateral hydroureteronephrosis with nonobstructing left nephrolithiasis. Several large dependent bladder calculi are also noted. -PSA > 20 -started on flomax -urology consult appreciate recommendations -Recommend continue Young catheter Repeat PSA level in 2-3 months Will need outpatient cystoscopy (6) Metabolic encephalopathy: due to infection /acute renal failure /uremia -metabolic encephalopathy Reported altered mental status over past several weeks. Noted improvement by family today. Probable secondary to underlying infection CT Head: no acute changes. -currently alert, oriented to person and place , with episodes of confusion (7) Pericardial effusion: CT abd/pelvis noted trace pericardial effusion. possible due to acute renal failure /uremia -echo : Small loculated anterior pericardial effusion without hemodynamic significance/no evidence of tamponade Normal LV function, no wall motion abnormality (8) Tremor: Noted tremor bilateral hands. Reported shuffled gait and tremor for years. -consider neurology referral (9) Failure to thrive: Pt living in house without running water and not eating or drinking well Patient was at [facility] recently Plan to return back to [facility] today CODE STATUS: Full code DVT Prophylaxis DC subcu heparin: Secondary to thrombocytopenia SCD and Teds Total Time Total Time Spent Total Time Spent (In Minutes): 40 mins Total Time Includes: Examination of the Patient, Discharge Planning and Medication Reconciliation Discharge Plan Discharge Items Patient Disposition: Transfer Inpatient Rehab Fac Reason For Visit: ANGE Discharge Diagnosis: ACUTE RENAL FAILURE /URINARY RETENTION /COMPLICATED UTI Discharge Goals: Decrease discomfort, Diagnostic testing and Therapeutic intervention Activity: Resume your previous activity Non-emergency contact: Primary Care Provider Call non-emergency contact if: you have any medication questions Follow-up/Referrals: Taras Myrick MD [Physician] - (FOLLOW UP IN 2-3 WEEKS , PLEASE CALL OFFICE FOR APPOINTMENT ) Diet: Heart Healthy Diet Texture: Mechanical soft (ground) Addtl Provider Instructions: CONTINUE YOUNG CATHETER UROLOGY FOLLOW UP IN 2-3 WEEKS COMPLETE 10 DAYS OF ANTIBIOTIC FOR UTI NEED REFERRAL TO OPTHALMOLOGY NEED REFERRAL TO NEUROLOGY FOR TREMOR Prescriptions: New tamsulosin 0.4 mg Capsule 0.4 mg PO DAILY 30 Days Qty: 30 RF: 0 ciprofloxacin HCl 500 mg tablet 500 mg PO BID 10 Days Qty: 20 RF: 0 Lactobacillus acidophilus [Probiotic Acidophilus] 1.5 mg (250 million cell) capsule 100 mmu cells PO QID 14 Days Qty: 60 RF: 0 ciprofloxacin HCl 0.3 % drops See Label Instructions .ROUTE .COMPLEX Qty: 5 RF: 0 Continue carbidopa-levodopa [Sinemet] 25-100 mg Tablet 1 tab PO Q8 RF: 0 Changed docusate sodium 100 mg Capsule 100 mg PO BID PRN (Reason: constipation) Qty: 0 RF: 0 Stand-Alone Forms: [facility] Discharge Orders: Discharge Order (Routine); Ordered 09/26/18 Ordered By: Cele Dutta Skilled Items Patient informed of condition?: Yes DNR: No Discharge Level of Care: Acute rehab Communicable Disease: No Discharge Prognosis: Stable Admission Data Admit Date/Time: 09/23/18 15:04 Attending Provider: Cele Dutta Admit Provider: Drake Valdivia Primary Care Provider: PCP,NO Other Providers: Drake Valdivia ; Gely Lerner ; Taras Myrick Service: Medical Other Interventions: Discharge Summary Assessment (RN) Last Done: 09/26/18 11:56 DC Date/Time DO NOT enter until pt leaves facility: 09/26/18 14:30
== END 2018-09-26 14:30 | DRG 871 ==
LOC: ED 11:49 → 2S 15:04 → 4W 09-25 11:54

== ENCOUNTER 2019-05-09 20:57 | Inpatient (IN) ==
--- NOTE | 2019-05-09 22:46 | XRay Report ---
XR chest 1V portable CLINICAL HISTORY: 73 years-old Male presenting with weakness, ams. TECHNIQUE: Portable upright AP view of the chest was obtained. COMPARISON: 09/23/2018. FINDINGS: Atherosclerosis of the aortic arch. Cardiac silhouette enlarged. No focal opacity. No large effusion or pneumothorax. Degenerative changes of the thoracic spine. Degenerative changes of the right glenoh umeral joint. Hiatal hernia may be present. IMPRESSION: 1. Cardiomegaly. No other convincing evidence of acute cardiopulmonary disease. Electronically signed by: Álvaro Everett M.D. 05/09/2019 10:45 PM
[2019-05-09 23:03] LABS: Basophils # (auto) 0.01 K/uL (0-0.2); Basophils % (auto) 0.1 %; Eosinophils # (auto) 0.13 K/uL (0-0.5); Eosinophils % (auto) 1.9 %; Hematocrit (blood only) 42.9 % (42-52); Hemoglobin 14.4 g/dL (14.0-18.0); Immature Granulocytes # (auto) 0.01 K/uL (0.00-0.02); Immature Granulocytes % (auto) 0.1 %; Lymphocytes # (auto) 1.27 K/uL (1.2-3.4); Mean Corpuscular Hemoglobin 30.1 pg (25-34); Mean Corpuscular Hgb Conc 33.6 g/dL (32-36); Mean Corpuscular Volume 89.7 fL (80-100); Mean Platelet Volume 9.7 fL (7.4-10.4); Monocytes # (auto) 0.46 K/uL (0.11-0.59); Monocytes % (auto) 6.9 %; Platelet Count 154 K/uL (130-400); RDW Coefficient of Variation 13.4 % (11.5-14.5); RDW Standard Deviation 44.3 fL (36.4-46.3); Red Blood Count 4.78 M/uL (4.7-6.1); White Blood Count 6.68 K/uL (4.8-10.8)
[2019-05-09 23:25] LABS: Alanine Aminotransferase 8 U/L (12-78); Albumin Level 3.3 gm/dl (3.4-5.0); Aspartate Aminotransferase 8 U/L (15-37); BUN Creatinine Ratio 32.9 (10-20); Blood Urea Nitrogen 29 mg/dl (7-18); Calcium 8.5 mg/dl (8.5-10.1); Carbon Dioxide 29 mmol/L (21-32); Chloride 104 mmol/L (98-107); Creatinine Clr Calc Pharmacy 66.2 ml/min; Est GFR (African American) 97.8; Est GFR (Non-African American) 84.4; Glucose 98 mg/dl (70-99); Magnesium 2.2 mg/dl (1.8-2.4); Potassium 3.8 mmol/L (3.5-5.1); Sodium 142 mmol/L (136-145)
[2019-05-09 23:27] LABS: Appearance Urine Turbid (Clear); Bacteria Urine Automated 2+ (Negative); Bilirubin Urine Negative (Negative); Blood Urine 2+ (Negative); Color Urine Yellow; Epithelial Cell Urine Auto 20-30 /lpf (0-5); Glucose Urine UA Negative (Negative); Ketones Urine Negative (Negative); Leukocyte Esterase Urine 3+ (Negative); Nitrite Urine Positive (Negative); Protein Urine Trace (Negative); Specific Gravity Urine 1.012 (1.000-1.030); Urobilinogen Urine Negative (Negative); WBC Urine Automated >30 /hpf (0-5); pH Urine 6.5 (4.5-7.5)
[2019-05-09 23:36] LABS: Alkaline Phosphatase 50 U/L (45-117); Bilirubin,Total 0.9 mg/dl (0.2-1); Globulin 3.2 gm/dl (2.5-4.0); Total Protein 6.5 gm/dl (6.4-8.2); Troponin I < 0.015 ng/ml (0-0.045)
[2019-05-09 23:42] LABS: Amorphous Sediment Urine Present (None Prsent); Calcium Oxalate Crystals Urine Present (None Prsent); RBC Urine Automated 0-4 /hpf (0-4)
[2019-05-09] MEDS ORDERED: cefTRIAXone SODIUM 1,000 MG/50 ML BAG IV STA (23:47)
[2019-05-10] MEDS ORDERED: DOCUSATE SODIUM 100 MG CAP PO PRN (01:38)
[2019-05-10] MEDS ORDERED: ACETAMINOPHEN 325 MG TAB PO PRN (01:38)
[2019-05-10] MEDS ORDERED: ONDANSETRON INJ 2 MG/ML 2 ML VIAL IV PRN (01:38)
[2019-05-10] MEDS ORDERED: CARBAMIDE PEROXIDE 6.5% 15 ML BTL OT PRN (01:38)
[2019-05-10] MEDS ORDERED: NITROGLYCERIN SL 0.4 MG/TAB TAB SL PRN (01:38)
[2019-05-10] MEDS ORDERED: NYSTATIN CR 15 GM TUBE EXT PRN (01:38)
--- NOTE | 2019-05-10 01:53 | Emergency Department Note ---
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 A nurse at the alf found the patient close to unconsciousness and had trouble waking up the patient. The patient states that he has not passed out before. The patient reports that he was staying at [facility]. The patient notes that he was eating and drinking normally. The patient states that the medication that he was taking was making him tired. The patient denies feeling as though he will pass out. Home Medications Home Medications Medication Instructions Recorded Confirmed Type carbidopa-levodopa [Sinemet] 1.5 tab PO QID 09/23/18 05/09/19 History oxybutynin chloride 5 mg PO BID 11/29/18 05/09/19 History tamsulosin 0.4 mg PO QAM 11/29/18 05/09/19 History diphenhydramine HCl [Banophen] 25 mg PO Q6H PRN 12/04/18 05/09/19 History nystatin 1 applic TOPICAL BID PRN 12/04/18 05/09/19 History carbamide peroxide [Ear Wax Drops] 5 drp OTIC (EAR) Q12H PRN 02/13/19 05/09/19 History docusate sodium 100 mg PO DAILY PRN 02/13/19 05/09/19 History selegiline 5 mg tablet 5 mg PO DAILY #30 tab 03/22/19 05/09/19 Rx dutasteride 0.5 mg capsule 0.5 mg PO DAILY #90 cap 04/12/19 05/09/19 History Allergies Allergy/AdvReac Type Severity Reaction Status Date / Time No Known Allergies Allergy Verified 05/09/19 21:57 Past Med/Surg History Medical History UTI (urinary tract infection) BPH (benign prostatic hyperplasia) Bilateral hydronephrosis Tremor Metabolic encephalopathy Pericardial effusion Enlarged prostate Sepsis Acute renal failure (Acute) Acute urinary retention (Acute) No significant past surgical history (Chronic) Failure to thrive (Inactive) Family History Father No pertinent family history Mother No pertinent family history Other Brain tumor Social History Preferred Language: Macanese Communication Ability: Effective 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 and A total of 10 systems reviewed and were otherwise negative Physical Exam Vital Signs Vital Signs - 24 hr 05/09/19 20:53 05/09/19 21:03 05/09/19 21:16 Temperature 36.9 C Temperature Source Oral Sepsis Recent Fever Within 48 Hours No Sepsis New/Unexplained Change in Mental Status No Sepsis Action Taken by Nursing No Action Required Pulse Rate 61 57 L 54 L Pulse Rate [Bilateral Apical] Pulse Rate from SpO2 Sensor 57 L 54 L Pulse Rhythm Regular Pulse Strength Normal Respiratory Rate 18 14 14 Respiratory Effort / Characteristics Non-Labored Spontaneous Respiratory Depth Normal Respiratory Pattern Regular Blood Pressure 163/95 H 163/95 H Blood Pressure [Left Arm] Blood Pressure Mean 117 117 Blood Pressure Mean [Left Arm] Pulse Oximetry 97 96 96 Oxygen Delivery Method Room Air 05/09/19 21:20 05/09/19 21:30 05/09/19 21:40 Temperature Temperature Source Sepsis Recent Fever Within 48 Hours Sepsis New/Unexplained Change in Mental Status Sepsis Action Taken by Nursing Pulse Rate 56 L 56 L 54 L Pulse Rate [Bilateral Apical] Pulse Rate from SpO2 Sensor 55 L 53 L 55 L Pulse Rhythm Pulse Strength Respiratory Rate 16 12 12 Respiratory Effort / Characteristics Respiratory Depth Respiratory Pattern Blood Pressure Blood Pressure [Left Arm] Blood Pressure Mean Blood Pressure Mean [Left Arm] Pulse Oximetry 97 96 96 Oxygen Delivery Method 05/09/19 21:50 05/09/19 22:00 05/09/19 22:21 Temperature Temperature Source Sepsis Recent Fever Within 48 Hours Sepsis New/Unexplained Change in Mental Status Sepsis Action Taken by Nursing Pulse Rate 59 L 64 Pulse Rate [Bilateral Apical] Pulse Rate from SpO2 Sensor 56 L 63 Pulse Rhythm Pulse Strength Respiratory Rate 11 L 18 Respiratory Effort / Characteristics Respiratory Depth Respiratory Pattern Blood Pressure Blood Pressure [Left Arm] Blood Pressure Mean Blood Pressure Mean [Left Arm] Pulse Oximetry 97 96 97 Oxygen Delivery Method Room Air 05/09/19 23:00 05/09/19 23:38 Temperature Temperature Source Sepsis Recent Fever Within 48 Hours Sepsis New/Unexplained Change in Mental Status Sepsis Action Taken by Nursing Pulse Rate Pulse Rate [Bilateral Apical] 47 L 47 L Pulse Rate from SpO2 Sensor Pulse Rhythm Pulse Strength Respiratory Rate 20 20 Respiratory Effort / Characteristics Respiratory Depth Respiratory Pattern Blood Pressure Blood Pressure [Left Arm] 161/85 H 146/78 H Blood Pressure Mean Blood Pressure Mean [Left Arm] 110 100 Pulse Oximetry 94 94 Oxygen Delivery Method Room Air GENERAL: Awake, alert, chronically ill appearing, in no distress. HENT: Normocephalic, atraumatic. EYES: Normal conjunctiva. Sclera non-icteric. NECK: Supple. No nuchal rigidity. RESPIRATORY: Diminished bases. Normal respiratory effort. CARDIAC: Bradycardic rate. Normal rhythm. Extremities warm and well perfused. GI: Soft, non-distended. No tenderness to palpation. No rebound or guarding. No masses. RECTAL: Deferred. MUSCULOSKELETAL: Atraumatic. Chest examination reveals no tenderness. LOWER EXTREMITIES: Calves are equal size bilaterally and non-tender. No edema NEURO: No gross sensory or motor deficits noted. No facial droop. SKIN: Warm and dry. No rash or jaundice noted. Course 2015: The patient was evaluated in room A02, and a complete history and physical examination were performed. 0002:I discussed the patient's case with Dr. Blue, [facility] hospitalist. He will evaluate the patient for further management. Administered Medications Discontinued Medications Ceftriaxone Sodium (Rocephin) 1,000 mg in 50 mls @ 100 mls/hr IV NOW STA Stop: 05/10/19 00:16 Last Infusion: 05/10/19 00:33 Dose: 0 mls/hr Documented by: [id number] Admin: 05/09/19 23:58 Dose: 100 mls/hr Documented by: [id number] Medical Decision Making Differential Diagnosis Differential diagnoses includes but is not limited to toxic, metabolic, infectious, traumatic, cardiac, neurologic, hematologic, psychiatric and inflammatory etiologies. Medical Records Attestation: I reviewed the patient's medical records. Home Medications Current Medication List: was personally reviewed by me Laboratory Data Attestation: I reviewed the patient's lab results. Result diagrams: 05/09/19 22:43 05/09/19 22:43 Lab Results 05/09/19 05/09/19 05/09/19 Range/Units 22:43 22:43 23:00 WBC 6.68 (4.8-10.8) K/uL RBC 4.78 (4.7-6.1) M/uL Hgb 14.4 (14.0-18.0) g/dL Hct 42.9 (42-52) % MCV 89.7 (80-100) fL MCH 30.1 (25-34) pg MCHC 33.6 (32-36) g/dL RDW Std Deviation 44.3 (36.4-46.3) fL RDW Coeff of Kayley 13.4 (11.5-14.5) % Plt Count 154 (130-400) K/uL MPV 9.7 (7.4-10.4) fL Immature Gran % (Auto) 0.1 % Neut % (Auto) 72.0 % Lymph % (Auto) 19.0 % Leon % (Auto) 6.9 % Eos % (Auto) 1.9 % Baso % (Auto) 0.1 % Immature Gran # (Auto) 0.01 (0.00-0.02) K/uL Neut # (Auto) 4.80 (1.4-6.5) K/uL Lymph # (Auto) 1.27 (1.2-3.4) K/uL Leon # (Auto) 0.46 (0.11-0.59) K/uL Eos # (Auto) 0.13 (0-0.5) K/uL Baso # (Auto) 0.01 (0-0.2) K/uL Sodium 142 (136-145) mmol/L Potassium 3.8 (3.5-5.1) mmol/L Chloride 104 (98-107) mmol/L Carbon Dioxide 29 (21-32) mmol/L Anion Gap 9.0 (3-11) BUN 29 H (7-18) mg/dl Creatinine 0.87 (0.6-1.4) mg/dl Est Cr Clr Drug Dosing 66.2 ml/min Est GFR ( Amer) 97.8 Est GFR (Non-Af Amer) 84.4 BUN/Creatinine Ratio 32.9 H (10-20) Glucose 98 (70-99) mg/dl Calcium 8.5 (8.5-10.1) mg/dl Magnesium 2.2 (1.8-2.4) mg/dl Total Bilirubin 0.9 (0.2-1) mg/dl AST 8 L (15-37) U/L ALT 8 L (12-78) U/L Alkaline Phosphatase 50 (45-117) U/L Troponin I < 0.015 (0-0.045) ng/ml Total Protein 6.5 (6.4-8.2) gm/dl Albumin 3.3 L (3.4-5.0) gm/dl Globulin 3.2 (2.5-4.0) gm/dl Albumin/Globulin Ratio 1.0 (0.9-2) TSH 1.150 (0.300-4.500) uIu/ml Urine Color Yellow Urine Appearance Turbid A (Clear) Urine pH 6.5 (4.5-7.5) Ur Specific [place] 1.012 (1.000-1.030) Urine Protein Trace H (Negative) Urine Glucose (UA) Negative (Negative) Urine Ketones Negative (Negative) Urine Blood 2+ H (Negative) Urine Nitrite Positive A (Negative) Urine Bilirubin Negative (Negative) Urine Urobilinogen Negative (Negative) Ur Leukocyte Esterase 3+ H (Negative) Urine WBC (Auto) >30 H (0-5) /hpf Urine RBC (Auto) 0-4 (0-4) /hpf U Hyaline Cast (Auto) 1-5 (0-5) /lpf U Epithel Cells (Auto) 20-30 H (0-5) /lpf Urine Bacteria (Auto) 2+ H (Negative) Calcium Oxalate Crystal Present A (None Prsent) Amorphous Sediment Present A (None Prsent) Urine Yeast Not Reportable Imaging Data Radiologist's Impression: Radiology results as stated below per my review and the radiologist's interpretation: XR chest 1V portable CLINICAL HISTORY: 73 years-old Male presenting with weakness, ams. TECHNIQUE: Portable upright AP view of the chest was obtained. COMPARISON: 09/23/2018. FINDINGS: Atherosclerosis of the aortic arch. Cardiac silhouette enlarged. No focal opacity. No large effusion or pneumothorax. Degenerative changes of the thoracic spine. Degenerative changes of the right glenohumeral joint. Hiatal hernia may be present. IMPRESSION: 1. Cardiomegaly. No other convincing evidence of acute cardiopulmonary disease. Electronically signed by: Álvaro Everett M.D. 05/09/2019 10:[address] HEAD: Compared to 09/23/18 No acute intracranial process. Redemonstrated frontal-predominant atrophy. Increasing paranasal sinus mucosal thickening, though still mild. Radiologist: leeanna Peoples M.D. Study ready at 23:27 and initial results transmitted at 23:56 ECG Data Indication: altered mental status Rate (beats per minute): 49 Rhythm: sinus bradycardia Findings: + other (non specific t wave changes ) and + left axis deviation; no PVC and no ST elevation Blood Pressure Blood Pressure Findings: Elevated blood pressure Blood Pressure Disposition: further management by hospitalist Head Trauma GCS Score: 15 MDM Narrative Patient is a 73-year-old gentleman with a past medical history including UTIs, sepsis, renal failure presenting from his personal fpc today after being found unresponsive there. When the ambulance arrived patient became alert and stated to them that he just did not want to live there anymore. Also repeated that the nurse here. Patient on my exam states that he was receiving his evening meds and had just taken them in became unresponsive. When he awoke the nurse was trying to remove his meds from his mouth. He denies that this is happened before. He states that he would be happy to go back to the personal care facility. No focal deficits are noted. No significant trauma is noted. CT the head was obtained with chest x-ray and basic laboratory studies. EKG is completed as well. I doubt this is acute ACS, PE, or pneumonia. No evidence of significant electrolyte abnormality. No evidence of cardiac disturbance. No leukocytosis. Patient does have concerning findings for UTI. Patient on prior cultures given a dose of ceftriaxone. Chest x-ray is unremarkable and head CT is unremarkable. Given UTI and transient AMS earlier, discussed with the patient and hospitalist for admission observation overnight. Was supposed to have close urologic follow-up the next several days to monitor his Ulrich and monitor his testicular swelling. Impression & Plan Altered mental status, Acute UTI Discharge Plan Visit Data *Final* Discharge Date/Time: 05/10/19 01:09 Chief Complaint: Illness Stated Complaint: ILLNESS, OTHER ED Provider: Maximus Mcrae Discharge Problem: Altered mental status, Acute UTI Patient Disposition: Admitted As Inpatient Discharge Instructions Interventions: ED Discharge Assessment Last Done: 05/10/19 01:09 Discharge Problem: Altered mental status Qualifiers: Altered mental status type: transient alteration of awareness Qualified Code(s): R40.4 - Transient alteration of awareness The scribe's documentation has been prepared under my direction and personally reviewed by me in its entirety. I confirm that the note above accurately reflects all work, treatment, procedures, and medical decision making performed by me.
--- NOTE | 2019-05-10 02:33 | History and Physical Report ---
DATE OF ADMISSION: 05/10/2019 CHIEF COMPLAINT: Unresponsive episode, confusion. HISTORY OF PRESENT ILLNESS: This is a 73-year-old male with past medical history significant for Parkinson's disease, BPH, urinary retention, currently on Ulrich catheter, currently living at [facility]. Was brought in because of unresponsive episode. As per the patient the nurses were giving pills and he blacked out and next thing he remembers is that there were nurses around him. He denies any biting of tongue or any shaking. As per nursing staff, his eyes were rolled up and could not follow the commands like he was not able to drink from the straw and he was sent here. Currently, he is back to his baseline. His initial workup was negative except for UA being positive. Denies any fever, chills. No headache. He says he is seeing okay. No nausea, no cough, no sore throat, no difficulty swallowing. He says he eats a regular diet though has some difficulty with chewing the food because of loss of upper teeth. No chest pain, no shortness of breath, no abdominal pain. Normal bowel movements. He says he is on Ulrich catheter for a few months now. No rash seen. No swelling of his extremities. Currently resting comfortably and hemodynamically stable. As per the previous admission notes, was not following with the PCP for greater than 30 years, and presented from [facility] for worsening renal function and altered mental status last admission. He is currently an [facility] resident. 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 He says his cousin and manager application and a friend are his power of attorneys. ALLERGIES: No known drug allergies. PAST MEDICAL HISTORY: As mentioned above. PAST SURGICAL HISTORY: No significant past surgical history. SOCIAL HISTORY: Currently at [facility]. No alcohol use, no substance use, no smoking history. REVIEW OF SYSTEMS: As per HPI. Rest of review of systems negative. PHYSICAL EXAMINATION: GENERAL: The patient is alert and oriented, not in acute distress. VITAL SIGNS: Temperature 36.9, pulse 47, respiratory rate 20, blood pressure 146/78, oxygen 94% on room air. HEENT: No pallor, no icterus. Pupils equal, round, reactive to light. NECK: No JVD, no neck masses, no carotid bruits. CARDIOVASCULAR: S1, S2 heard. No murmurs appreciated. RESPIRATORY SYSTEM: Normal AP diameter. No accessory muscle use. No wheezing, no crackles. ABDOMEN: Soft, bowel sounds present, nontender. No distention. CENTRAL NERVOUS SYSTEM: Alert and oriented, not in acute distress. Nonfocal. EXTREMITIES: No edema, no erythema seen. LABORATORY DATA: WBC 6.6, hemoglobin 14.4, hematocrit 42.9, platelets 154. Sodium 142, potassium 3.8, chloride 104, bicarbonate 29, BUN 29, creatinine 0.8, serum glucose 98, calcium 8.5, magnesium 2.2, total bilirubin 0.9, AST 8, ALT 8, alkaline phosphatase 50. Troponin I less than 0.015. TSH 1.15. Urinalysis positive for nitrite and leukocyte esterase. IMAGING DATA: Chest x-ray, cardiomegaly, no other convincing evidence of acute cardiopulmonary disease. EKG: Sinus bradycardia with a rate of 49, nonspecific T-wave abnormality, no significant change was found from previous EKG. ASSESSMENT AND PLAN: This is a 73-year-old male who presents with episode of unresponsive episode. 1. Unresponsive episode and confusion for a brief moment. The patient's eyes rolled up and he was not responding, he was not able to drink from a straw. He was sent here. Initial labs ok except for a urinary tract infection, and CT of the head official report pending, but unofficial report unremarkable. We will observe in the med/surg tele. We will follow the official report of the CT of the head. He is also having some bradycardia, possibly a syncopal episode. We will order an echocardiogram. If any concerns, we will also order EEG. It could also be from his Parkinson disease,and the medications. We will follow his labs. 2. Urinary tract infection, could be contaminant. Could be from his chronic Ulrich. We will place him on Rocephin and follow the cultures. 3. History of idiopathic right-sided elicia Parkinson disease, on Sinemet. follows with neurology. 4. Benign prostatic hyperplasia, Urinary retention.on Flomax.currently on Ulrich catheter. Follow up with urology. Also last admission PSA was elevated Plan for repeat PSA levels in 2-3 months. We will repeat PSA levels in the a.m. Needs outpatient cystoscopy. Followup with urology. 5. History of pericardial effusion, small.last admission. Will follow the echo results. 6. Deep venous thrombosis prophylaxis, sequential compression devices for now. 7. Disposition: Observation in med/surg tele. Level 1 full code as per my discussion with patient. ALOK
--- NOTE | 2019-05-10 07:04 | CT Scan Report ---
CT OF THE HEAD WITHOUT CONTRAST CLINICAL HISTORY: Altered mental status. COMPARISON STUDY: Head CT September 23, 2018. CT DOSE: 537.48 mGy.cm TECHNIQUE: Helical axial images of the head were obtained without IV contrast. Automated exposure con trol was utilized for the study. A dose lowering technique was utilized adhering to the principles o f ALARA. FINDINGS: No acute intracranial hemorrhage, midline shift or mass effect is present. The ventricular system is unremarkable. The basilar cisterns are patent. No extra-axial collections are present. Ther e are no findings to suggest acute dural sinus thrombosis or acute territorial infarct. No significan t calvarial abnormalities are present. Mild bilateral maxillary and ethmoid sinus mucosal thickening is noted. Clear. Mild white matter hypodensity suggests small vessel disease. 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 IMPRESSION: No acute intracranial findings. Electronically signed by: Mannie Ward M.D. 05/10/2019 7:03 AM
[2019-05-10] MEDS: AVODART~ORDER AWAITING ACTION SCH ×2 (08:00→15:44)
[2019-05-10] MEDS: CARBIDOPA/LEVODOPA 25/100MG TAB PO SCH ×4 (08:01→20:06)
[2019-05-10] MEDS: OXYBUTYNIN CHLORIDE 5 MG TAB PO SCH ×2 (08:02→20:05)
[2019-05-10] MEDS: TAMSULOSIN HCL 0.4 MG CAP PO SCH (08:03)
[2019-05-10] MEDS: SELEGILINE HCL 5 MG TAB PO SCH (08:03)
--- NOTE | 2019-05-10 08:07 | Hospitalist Progress Note ---
Date of Service May 10, 2019 Subjective Scrotal mass on pelvic MRI last admission. Needs urology followup. If not fol lowed up may need consult while in the hospital. Thanks Results & Data Vital Signs (Past 12 Hours) Vital Signs Temp Pulse Pulse Pulse Pulse Resp BP 05/10/19 07:29 36.6 C 54 L 18 05/10/19 07:26 66 05/10/19 02:59 05/10/19 02:48 36.7 C 51 L 14 05/10/19 02:34 52 L 05/10/19 01:40 36.7 C 51 L 18 05/10/19 01:02 69 20 05/09/19 23:38 47 L 20 05/09/19 23:00 47 L 20 05/09/19 22:21 05/09/19 22:00 64 18 05/09/19 21:50 59 L 11 L 05/09/19 21:40 54 L 12 05/09/19 21:30 56 L 12 05/09/19 21:20 56 L 16 05/09/19 21:16 54 L 14 05/09/19 21:03 57 L 14 163/95 H 05/09/19 20:53 36.9 C 61 18 163/95 H BP BP Pulse Ox Pulse Ox 05/10/19 07:29 172/91 H 95 05/10/19 07:26 05/10/19 02:59 97 05/10/19 02:48 172/97 H 97 05/10/19 02:34 05/10/19 01:40 172/97 H 97 05/10/19 01:02 148/87 H 96 05/09/19 23:38 146/78 H 94 05/09/19 23:00 161/85 H 94 05/09/19 22:21 97 05/09/19 22:00 96 05/09/19 21:50 97 05/09/19 21:40 96 05/09/19 21:30 96 05/09/19 21:20 97 05/09/19 21:16 96 05/09/19 21:03 96 05/09/19 20:53 97
[2019-05-10] MEDS: SODIUM CHLORIDE 0.9% 1000ML 1,000 ML IV SCH (12:50)
[2019-05-10] MEDS: cefTRIAXone SODIUM 1,000 MG in DEXTROSE 5% 50 ML IV SCH (21:12)
[2019-05-11] MEDS: AVODART~ORDER AWAITING ACTION SCH ×2 (00:06→08:28)
[2019-05-11] MEDS: SODIUM CHLORIDE 0.9% 1000ML 1,000 ML IV SCH ×3 (00:11→23:37)
[2019-05-11 05:36] LABS: Hemoglobin 13.6 g/dL (14.0-18.0); Mean Corpuscular Hemoglobin 29.7 pg (25-34); Mean Corpuscular Hgb Conc 33.2 g/dL (32-36); Mean Corpuscular Volume 89.5 fL (80-100); Mean Platelet Volume 9.8 fL (7.4-10.4); Platelet Count 154 K/uL (130-400); RDW Coefficient of Variation 13.3 % (11.5-14.5); RDW Standard Deviation 43.6 fL (36.4-46.3); Red Blood Count 4.58 M/uL (4.7-6.1)
[2019-05-11 06:02] LABS: Potassium 4.1 mmol/L (3.5-5.1)
[2019-05-11 06:03] LABS: BUN Creatinine Ratio 28.6 (10-20); Calcium 8.5 mg/dl (8.5-10.1); Creatinine Clr Calc Pharmacy 77.4 ml/min; Est GFR (Non-African American) 89.7; Magnesium 2.2 mg/dl (1.8-2.4)
[2019-05-11] MEDS: SELEGILINE HCL 5 MG TAB PO SCH (07:36)
[2019-05-11] MEDS: TAMSULOSIN HCL 0.4 MG CAP PO SCH (07:37)
[2019-05-11] MEDS: CARBIDOPA/LEVODOPA 25/100MG TAB PO SCH ×5 (07:37→20:16)
--- NOTE | 2019-05-11 08:25 | Hospitalist Progress Note ---
Date of Service May 11, 2019 Assessment & Plan (1) Altered mental status: (2) Acute UTI: (3) Parkinsons disease: (4) BPH (benign prostatic hyperplasia): (5) Bilateral hydronephrosis: (6) Tremor: (7) Metabolic encephalopathy: (8) Enlarged prostate: (9) Bradycardia: (10) Syncope and collapse: Cards eval for Bradycardia, Continue OBS, Tele, Speech ROS-No Headache, No Visual Changes, No Nausea, No Vomiting, No Fever, No Chills, No Neck Pain or Stiffness, No Chest Pain, No Palpitations, No SOB, No AMEZQUITA, No Cough, No Sputum, No Wheezing, No Abdominal Pain, No Diarrhea, No Hematemesis, No Hemoptysis, No Unexpected Weight Loss, No Flank pain, No Melena, No Hematochezia, No Frequency, No Urgency, No Burning, No Hematuria, No Rashes, No Diaphoresis. Appetite is Normal Physical Exam Gen-AAO x 3, NAD, Afebrile Head-NCAT, EOMI, PERRLA, Anicteric Sclera, No Posterior Pharyngeal Erythema Neck-Supple, No JVD, No Thyromegaly, No Masses, No LAD, No Bruits Lungs-Clear to Auscultation Bilaterally, No Rales, No Rhonchi, No Wheezing, No Crepitus Chest-No S4, +S1, +S2, No S3, No Murmurs, No Rubs, No Gallops, No Ectopy Abdomen-Soft, Bowel Sounds Present, Non Tender, Non Distended, No Hepatomegaly, No Splenomegaly, No Palpable Masses, No Rebound, No Rigidity, No Guarding Musculoskeletal-Full Range of Motion Bilaterally, No CVAT Extremities-No Cyanosis, No Clubbing, No Edema Nuero-Cranial Nerves II-XII grossly intact, Motor WNL, DTRs WNL, Strength WNL, Non Focal Psych-Normal Mood Results & Data Vital Signs (Past 12 Hours) Vital Signs Temp Pulse Pulse Resp BP Pulse Ox 05/11/19 08:04 44 L 05/11/19 07:24 36.8 C 48 L 20 146/79 H 96 05/11/19 04:12 36.6 C 18 137/72 96 05/11/19 00:57 53 L 05/10/19 23:23 36.9 C 57 L 19 152/83 H 93 Allergies No Known Allergies Allergy (Verified 05/09/19 21:57) Height/Weight/Isolation Height 5 ft 8 in Weight 64.3 kg Chemistry 05/09/19 05/11/19 22:43 05:26 Sodium 142 141 Potassium 3.8 4.1 Chloride 104 108 H Carbon Dioxide 29 28 Anion Gap 9.0 5.0 BUN 29 H 21 H Creatinine 0.87 0.75 Glucose 98 86 Urinalysis 05/09/19 23:00 Urine Color Yellow Urine Appearance Turbid A Urine pH 6.5 Ur Specific [place] 1.012 Urine Protein Trace H Urine Glucose (UA) Negative Urine Ketones Negative Urine Blood 2+ H Urine Nitrite Positive A Urine Bilirubin Negative Microbiology 05/09/19 23:00 Urine,Clean Catch Urine Culture - Pending (1) Altered mental status Altered mental status type: transient alteration of awareness Qualified Code(s): R40.4 - Transient alteration of awareness
[2019-05-11] MEDS: OXYBUTYNIN CHLORIDE 5 MG TAB PO SCH ×3 (08:28→20:16)
--- NOTE | 2019-05-11 10:50 | Urology Consultation ---
Date of Consultation May 11, 2019 Assessment & Plan (1) Abnormal finding on diagnostic imaging of left testicle: 73yo M with Parkinson's Disease, chronic indwelling catheter, with left testicular abnormality Findings and plan discussed with Dr. Myrick. Plan to repeat scrotal US today to evaluate scrotal mass, hematoma vs solid components. Pt understands that we will have more information tomorrow after we gather more information. Continue broad spectrum abx while awaiting culture sensitivities. Thank you for allowing us to participate in the acute care of Mr. Osullivan. We will continue to watch him closely with primary service. History of Present Illness Reason for Consultation: testicular abnormality Requesting Physician: Dr. Cobos Attending Physician: Jewel Cobos, History of Present Illness 73yo M with Parkinsons, BPH, chronic retention with indwelling catheter, residing at [facility] was admitted through [facility] ED yesterday due to unresponsive episode. We were consulted to assist in care regarding a left testicular abnormality. Pt had scheduled outpatient visit with Dr. Myrick today to discuss findings of MRI and plan moving forward. MRI reveals large 9.3cm left scrotal mass, extratesticular and compresses on deforms the left testis, no Pt does acknowledge left scrotal swelling, worsening over the last few months. Pt reports no pain associated, nonerythematous. Denies fever/chills/n/v. He feels he is back to his normal state of health otherwise s/p unresponsive episode. Allergies Allergy/AdvReac Type Severity Reaction Status Date / Time No Known Allergies Allergy Verified 05/09/19 21:57 Home Medications Home Medications Medication Instructions Recorded Confirmed Type carbidopa-levodopa [Sinemet] 1.5 tab PO QID 09/23/18 05/09/19 History oxybutynin chloride 5 mg PO BID 11/29/18 05/09/19 History tamsulosin 0.4 mg PO QAM 11/29/18 05/09/19 History diphenhydramine HCl [Banophen] 25 mg PO Q6H PRN 12/04/18 05/09/19 History nystatin 1 applic TOPICAL BID PRN 12/04/18 05/09/19 History carbamide peroxide [Ear Wax Drops] 5 drp OTIC (EAR) Q12H PRN 02/13/19 05/09/19 History docusate sodium 100 mg PO DAILY PRN 02/13/19 05/09/19 History selegiline 5 mg tablet 5 mg PO DAILY #30 tab 03/22/19 05/09/19 Rx dutasteride 0.5 mg capsule 0.5 mg PO DAILY #90 cap 04/12/19 05/09/19 History Patient History Medical History UTI (urinary tract infection) BPH (benign prostatic hyperplasia) Bilateral hydronephrosis Tremor Metabolic encephalopathy Pericardial effusion Enlarged prostate Sepsis Acute renal failure (Acute) Acute urinary retention (Acute) No significant past surgical history (Chronic) Failure to thrive (Inactive) Family History Father No pertinent family history Mother No pertinent family history Other Brain tumor Social History Preferred Language: Swedish Communication Ability: Effective 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 Beliefs That Will Affect Care: None marital status: Single Current Living Situation: Personal Care Facility current occupational status: retired Feels Safe at Home: Yes Smoking Status: Never smoker Second Hand Exposure: No ; Hx Alcohol Use: No Hx Substance Use: No Review of Systems Review of Systems: All systems reviewed & are unremarkable except as noted in HPI & below Physical Exam Constitutional: no acute distress and not ill appearing Eyes: no nystagmus ENMT: Ears: no hearing impairment Neck: trachea midline Respiratory: no respiratory distress and no cough Cardiovascular: Vessels: no JVD Chest (Breasts): Chest: normal inspection of chest Gastrointestinal (Abdomen): Inspection/Auscultation: abdomen not distended and no abdominal edema Percussion/Palpation: abdomen soft; abdomen nontender Musculoskeletal: Head/Neck/Chest: normocephalic and head atraumatic Skin: no rashes, warm and dry Neurologic: awake; not confused and not obtunded Psychiatric: Orientation: alert and oriented x 3 Eye Contact: good eye contact Affect: no depressed affect Genitourinary: no CVA tenderness left testicular swelling, no induration, no erythema or cellulitis. Homogenous in texture, with exception of slight thickened area to anterior aspect NO associated adenopathy adams draining cloudy urine with mild sediment, with some exudative drainage around penis. Lymphatic: no lymphadenopathy and no lymphedema Results & Data Vital Signs (Past 12 Hours) Vital Signs Temp Pulse Pulse Resp BP Pulse Ox 05/11/19 08:04 44 L 05/11/19 07:24 36.8 C 48 L 20 146/79 H 96 05/11/19 04:12 36.6 C 18 137/72 96 05/11/19 00:57 53 L 05/10/19 23:23 36.9 C 57 L 19 152/83 H 93
[2019-05-11] MEDS ORDERED: Nursing to Pharmacy Communication ONE (11:12)
[2019-05-11] MEDS: FINASTERIDE 5 MG TAB PO SCH (14:02)
--- NOTE | 2019-05-11 14:16 | Ultrasound Report ---
US scrotum/testicle CLINICAL HISTORY: 73 years-old Male presenting with left testicular mass vs hydrocele. TECHNIQUE: Real-time grayscale and color and spectral Doppler ultrasound imaging of the scrotum was p erformed. COMPARISON: 02/12/2019 and pelvic MR from 03/31/2019. FINDINGS: Right testis: Normal echogenicity and echotexture. Testis measures 3.4 x 3.2 x 3.4 cm. Normal color D oppler flow and arterial and venous waveforms in the testicular parenchyma. Epididymal head normal. N o hydrocele. No varicocele. Left testis: Redemonstration of the extratesticular mass in the left scrotum, which demonstrates fair ly homogeneous mildly hypoechogenic internal echoes and peripheral vascularity. Multifocal peripheral calcifications may be present. This collection measures 14.1 x 8.4 x 10.6 cm similar to prior, previ ously 13.4 x 10.3 x 9.0 cm.. Normal echogenicity and echotexture. Testis measures 2.5 x 1.0 x 1.7 cm. Grossly normal color Doppler flow and arterial and venous waveforms in the testicular parenchyma. Ep ididymides not well evaluated. No hydrocele. No varicocele. Symmetry of perfusion of the testes it is not well assessed. Other: None. IMPRESSION: Persistent large left scrotal extratesticular mass, which has the appearance of a complex collection. Urologic consultation for possible drainage versus surgery versus continued imaging follow-up recomm ended. This is indeterminate. A neoplastic etiology is not favored though is difficult to exclude. Electronically signed by: Álvaro Everett M.D. 05/11/2019 2:15 PM
--- NOTE | 2019-05-11 15:49 | Cardiology Consultation ---
Date of Consultation May 11, 2019 Assessment & Plan (1) Syncope and collapse: Stable sinus bradycardia observed on telemetry thus far. I do not see any arrhythmia that would explain his loss of consciousness episode. For further assessment, we will continue to monitor his telemetry, and would consider a 2-week pvc monitor at discharge which can be placed at [facility]. History of Present Illness Attending Physician: Jewel Cobos DO History of Present Illness Félix Welch is a 73 year old male seen in cardiology consultation per the request of Dr. Cobos for assessment of a loss of consciousness episode and bradycardia. The patient has a history of idiopathic right elicia-Parkinson's disease. He has a chronic indwelling Ulrich catheter. He was admitted on 05/10/2019 from [facility] due to an unresponsive episode. The nurses were apparently administering his medications and he lost consciousness. Telemetry during his hospital stay predominantly reveal sinus bradycardia and sinus rhythm in the range of 50 to 60 bpm. He does have noted bradycardia down to the 40 bpm range during anticipated hours of sleep overnight. There are no pauses or episodes of AV block noted on telemetry thus far. An EKG was performed on 05/09/2019 revealing sinus bradycardia at 49 bpm with nonspecific T wave changes in the lateral leads. Compared to the prior dated 04/03/2019, no significant change was found with sinus bradycardia at 59 bpm noted at that time. Echocardiogram performed 05/10/2019 reveals mild concentric left ventricular hypertrophy with normal left ventricular wall motion, normal LVEF in the range of 60 to 65%. Mild aortic valve regurgitation was present. Moderate prolapse of the posterior mitral valve leaflet was visualized in the parasternal long axis view that was not reproduced in the other views including the apical long axis view. Mild mitral regurgitation is present. Mild tricuspid regurgitation is present. He has been pulmonary systolic pressure was 35 m of mercury which is the upper limit of normal. Allergies Allergy/AdvReac Type Severity Reaction Status Date / Time No Known Allergies Allergy Verified 05/09/19 21:57 Home Medications Home Medications Medication Instructions Recorded Confirmed Type carbidopa-levodopa [Sinemet] 1.5 tab PO QID 09/23/18 05/09/19 History oxybutynin chloride 5 mg PO BID 11/29/18 05/09/19 History tamsulosin 0.4 mg PO QAM 11/29/18 05/09/19 History diphenhydramine HCl [Banophen] 25 mg PO Q6H PRN 12/04/18 05/09/19 History nystatin 1 applic TOPICAL BID PRN 12/04/18 05/09/19 History carbamide peroxide [Ear Wax Drops] 5 drp OTIC (EAR) Q12H PRN 02/13/19 05/09/19 History docusate sodium 100 mg PO DAILY PRN 02/13/19 05/09/19 History selegiline 5 mg tablet 5 mg PO DAILY #30 tab 03/22/19 05/09/19 Rx dutasteride 0.5 mg capsule 0.5 mg PO DAILY #90 cap 04/12/19 05/09/19 History Patient History Medical History UTI (urinary tract infection) BPH (benign prostatic hyperplasia) Bilateral hydronephrosis Tremor Metabolic encephalopathy Pericardial effusion Enlarged prostate Sepsis Acute renal failure (Acute) Acute urinary retention (Acute) No significant past surgical history (Chronic) Failure to thrive (Inactive) Family History Father No pertinent family history Mother No pertinent family history Other Brain tumor Social History Preferred Language: Lithuanian Communication Ability: Effective 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 Physical Exam Physical Exam: Temp Pulse Resp BP Pulse Ox 36.8 C 61 20 154/100 H 94 05/11/19 15:05 05/11/19 15:05 05/11/19 15:05 05/11/19 15:05 05/11/19 15:05 Constitutional: + ill appearing Respiratory: normal respiratory effort, lungs clear to auscultation Cardiovascular: RRR, no murmur, no edema Gastrointestinal (Abdomen): normal bowel sounds, soft, nontender, no hepatosplenomegaly Neurologic: Pill-rolling tremor noted in the right upper extremity Results & Data Vital Signs (Past 12 Hours) Vital Signs Temp Pulse Pulse Resp BP BP Pulse Ox 05/11/19 15:05 36.8 C 61 20 154/100 H 94 05/11/19 11:18 36.6 C 80 19 150/112 H 96 05/11/19 08:04 44 L 05/11/19 07:24 36.8 C 48 L 20 146/79 H 96 05/11/19 04:12 36.6 C 18 137/72 96 Laboratory Results CBC 05/11/19 Range/Units 05:26 WBC 5.20 (4.8-10.8) K/uL RBC 4.58 L (4.7-6.1) M/uL Hgb 13.6 L (14.0-18.0) g/dL Hct 41.0 L (42-52) % Plt Count 154 (130-400) K/uL Comprehensive Metabolic Panel 05/11/19 Range/Units 05:26 Sodium 141 (136-145) mmol/L Potassium 4.1 (3.5-5.1) mmol/L Chloride 108 H (98-107) mmol/L Carbon Dioxide 28 (21-32) mmol/L BUN 21 H (7-18) mg/dl Creatinine 0.75 (0.6-1.4) mg/dl Glucose 86 (70-99) mg/dl Calcium 8.5 (8.5-10.1) mg/dl Intake and Output 05/11/19 05/11/19 05/11/19 06:59 14:59 22:59 Intake Total 851.25 / 1671.25 952.5 / 952.5 Output Total 600 / 1425 450 / 450 Balance 251.25 / 246.25 502.5 / 502.5 Intake: IV 851.25 / 911.25 832.5 / 832.5 Nss 1000ML 1,000 ml @ 75 mls/hr 851.25 / 851.25 832.5 / 832.5 IV .[id number] [facility] Rx#:[id number] Oral 120 / 120 Output: Urine Amount (Catheter) 600 / 1425 450 / 450 Ulrich/Indwelling 600 / 1425 450 / 450 Other: Other Intake Source sips
[2019-05-11] MEDS ORDERED: OPTIRAY 320 125ml IV PRN (20:37)
--- NOTE | 2019-05-11 20:51 | CT Scan Report ---
HEAD CT NONCONTRAST CT DOSE: HISTORY: Unresponsiveness. Stroke symptoms. TECHNIQUE: Multiaxial CT images of the head were performed without the use of intravenous contrast. A utomated exposure control was utilized for this study. A dose lowering technique was utilized adheri ng to the principles of ALARA. Comparison: Head CT 05/09/2019 Findings: Partial opacification of the right posterior ethmoid air cells. Small retention cyst within the right maxillary sinus. The mastoid air cells are clear. The calvarium and skull base are intact. There is no mass, hematoma, midline shift, acute infarct. White matter hypodensity is nonspecific bu t suggestive of microvascular ischemic change. The ventricles and sulci demonstrate mild age-related involutional changes. Impression: No significant change compared to the prior study. No acute intracranial abnormality. Electronically signed by: Jan Rosen M.D. 05/11/2019 8:49 PM
--- NOTE | 2019-05-11 21:10 | CT Scan Report ---
HEAD & NECK CTA HISTORY: Unresponsiveness. Assess for stroke. TECHNIQUE: Multiaxial CT images of the head were performed the intravenous administration of contrast to evaluate the major cerebral vessels. Multiaxial CT images of the neck were also performed followi ng the intravenous administration of contrast to evaluate the major cervical vessels. Maximum intensi ty projection images were also obtained. A dose lowering technique was utilized adhering to the princ iplDemetrius. COMPARISON: None. FINDINGS: There is no mass, hematoma, midline shift, or acute infarct. Visualized intracranial internal carotid arteries, distal vertebral arteries, and basilar artery are widely patent. There is no significant s tenosis, occlusion, or aneurysm seen within the bilateral ACAs, MCAs, or billet header. The major dural venous sinuses are widely patent. The aortic arch and proximal great vessels are widely patent. There is no significant stenosis, occ lusion, or dissection identified within the bilateral common carotid, internal carotid, or vertebral arteries. There is a 1.3 cm left hypodense thyroid nodule/cyst. Incidental note is made of a severely hypoplastic left vertebral artery. IMPRESSION: 1. No significant stenosis, occlusion, or aneurysm within the [place]. 2. No significant stenosis, occlusion, or dissection identified within the carotid or vertebral arter ies. Electronically signed by: Jan Rosen M.D. 05/11/2019 9:08 PM
--- NOTE | 2019-05-11 21:10 | CT Scan Report ---
HEAD & NECK CTA HISTORY: Unresponsiveness. Assess for stroke. TECHNIQUE: Multiaxial CT images of the head were performed the intravenous administration of contrast to evaluate the major cerebral vessels. Multiaxial CT images of the neck were also performed followi ng the intravenous administration of contrast to evaluate the major cervical vessels. Maximum intensi ty projection images were also obtained. A dose lowering technique was utilized adhering to the princ iplDemetrius. COMPARISON: None. FINDINGS: There is no mass, hematoma, midline shift, or acute infarct. Visualized intracranial internal carotid arteries, distal vertebral arteries, and basilar artery are widely patent. There is no significant s tenosis, occlusion, or aneurysm seen within the bilateral ACAs, MCAs, or assignment manager. The major dural venous sinuses are widely patent. The aortic arch and proximal great vessels are widely patent. There is no significant stenosis, occ lusion, or dissection identified within the bilateral common carotid, internal carotid, or vertebral arteries. There is a 1.3 cm left hypodense thyroid nodule/cyst. Incidental note is made of a severely hypoplastic left vertebral artery. IMPRESSION: 1. No significant stenosis, occlusion, or aneurysm within the [place]. 2. No significant stenosis, occlusion, or dissection identified within the carotid or vertebral arter ies. Electronically signed by: Jan Rosen M.D. 05/11/2019 9:08 PM
[2019-05-11 21:22] LABS: Basophils # (auto) 0.01 K/uL (0-0.2); Basophils % (auto) 0.2 %; Eosinophils # (auto) 0.09 K/uL (0-0.5); Eosinophils % (auto) 1.6 %; Hematocrit (blood only) 40.3 % (42-52); Hemoglobin 13.5 g/dL (14.0-18.0); Immature Granulocytes # (auto) 0.01 K/uL (0.00-0.02); Immature Granulocytes % (auto) 0.2 %; Mean Corpuscular Hemoglobin 29.9 pg (25-34); Mean Corpuscular Volume 89.2 fL (80-100); Mean Platelet Volume 9.9 fL (7.4-10.4); Monocytes # (auto) 0.34 K/uL (0.11-0.59); Monocytes % (auto) 6.1 %; Neutrophils % (auto) 73.9 %; Platelet Count 152 K/uL (130-400); RDW Coefficient of Variation 13.3 % (11.5-14.5); RDW Standard Deviation 43.4 fL (36.4-46.3); Red Blood Count 4.52 M/uL (4.7-6.1); White Blood Count 5.55 K/uL (4.8-10.8)
[2019-05-11 21:28] LABS: Mean Corpuscular Hgb Conc 33.5 g/dL (32-36)
[2019-05-11 21:31] LABS: INR 1.1 (0.9-1.1); Prothrombin Time 11.1 Seconds (9.0-12.0)
[2019-05-11 21:41] LABS: Alanine Aminotransferase < 6 U/L (12-78); Aspartate Aminotransferase 5 U/L (15-37); BUN Creatinine Ratio 27.8 (10-20); Blood Urea Nitrogen 25 mg/dl (7-18); Calcium 8.6 mg/dl (8.5-10.1); Carbon Dioxide 25 mmol/L (21-32); Chloride 108 mmol/L (98-107); Creatinine Clr Calc Pharmacy 63.8 ml/min; Est GFR (African American) 95.2; Est GFR (Non-African American) 82.2; Glucose 88 mg/dl (70-99); Magnesium 2.2 mg/dl (1.8-2.4); Potassium 3.9 mmol/L (3.5-5.1); Sodium 140 mmol/L (136-145)
[2019-05-11 21:46] LABS: Albumin Globulin Ratio 1.1 (0.9-2); Alkaline Phosphatase 46 U/L (45-117); Bilirubin,Total 0.8 mg/dl (0.2-1); Globulin 2.7 gm/dl (2.5-4.0); Total Protein 5.7 gm/dl (6.4-8.2); Troponin I < 0.015 ng/ml (0-0.045)
[2019-05-11] MEDS: cefTRIAXone SODIUM 1,000 MG in DEXTROSE 5% 50 ML IV SCH (22:01)
[2019-05-12 06:22] LABS: Hematocrit (blood only) 44.3 % (42-52); Hemoglobin 14.5 g/dL (14.0-18.0); Mean Corpuscular Hemoglobin 29.5 pg (25-34); Mean Corpuscular Hgb Conc 32.7 g/dL (32-36); Mean Corpuscular Volume 90.2 fL (80-100); Mean Platelet Volume 9.7 fL (7.4-10.4); Platelet Count 170 K/uL (130-400); RDW Coefficient of Variation 13.3 % (11.5-14.5); RDW Standard Deviation 44.1 fL (36.4-46.3); Red Blood Count 4.91 M/uL (4.7-6.1); White Blood Count 5.72 K/uL (4.8-10.8)
[2019-05-12 06:54] LABS: BUN Creatinine Ratio 20.7 (10-20); Calcium 8.5 mg/dl (8.5-10.1); Creatinine Clr Calc Pharmacy 67.2 ml/min; Est GFR (African American) 97.4; Potassium 4.2 mmol/L (3.5-5.1)
[2019-05-12] MEDS: OXYBUTYNIN CHLORIDE 5 MG TAB PO SCH ×2 (08:05→21:50)
--- NOTE | 2019-05-12 08:05 | Hospitalist Progress Note ---
Date of Service May 11 2019 May 12, 2019 Subjective Was called and notified that patient is unresponsive though vitals are stable. Last well known was 7:40pm.Seen and examined the patient. Patient unresponsive. Question of slight left facial droop. Slight grimace on painful stimuli. Stroke alert was called and stat ct head and CTA head and neck ordered.Called [facility] stroke neurologist. By the Time Called tele neurologist it was around 8:40pm. Was advised to check for brain reflex and call back with results of imaging studies.If any doubt of brain stem stroke plan to fly to [place]. Patient was saturating fine on room air. No obvious signs of distress. hemodynamically stable except bradycardia. Patient initially presented from skilled nursing with similar unresponsive episode but came back to his baseline..Was seen by cardiology earlier and mentioned no significant arrythmias on tele. Stat readings done today unremarkable. Checked patient again was still unresponsive. Difficult to open his eyes but pupils were reactive to light. No obvious nystagmus present.Called back [place] tele neurology and notified the findings. [place] neurology was of opinion that possible seizures vs bradycardia causing the episode and advised to contact Local neurology. Called [facility] Neurology environmental engineering intern. By hat patient was waking up and close to baseline. [facility] neurology recommended eeg in am.But as patient was seen by [facility] neurology recently for Parkinson's will consult [facility] neurology in am. Close monitor. Results & Data Vital Signs (Past 12 Hours) Vital Signs Temp Pulse Pulse Resp BP BP Pulse Ox 05/12/19 07:19 54 L 05/12/19 07:05 37.0 C 54 L 18 176/97 H 94 05/12/19 04:36 36.8 C 51 L 20 172/93 H 95 05/12/19 00:00 48 L 176/96 H 05/11/19 23:02 36.4 C L 54 L 20 186/103 H 96 05/11/19 20:17 46 L 16 143/81 H 94
[2019-05-12] MEDS: TAMSULOSIN HCL 0.4 MG CAP PO SCH (08:06)
[2019-05-12] MEDS: SELEGILINE HCL 5 MG TAB PO SCH (08:06)
[2019-05-12] MEDS: FINASTERIDE 5 MG TAB PO SCH (08:07)
[2019-05-12] MEDS: CARBIDOPA/LEVODOPA 25/100MG TAB PO SCH ×4 (08:08→21:51)
--- NOTE | 2019-05-12 08:28 | Hospitalist Progress Note ---
Date of Service May 12, 2019 Assessment & Plan (1) Altered mental status: (2) Acute UTI: (3) Parkinsons disease: (4) BPH (benign prostatic hyperplasia): (5) Bilateral hydronephrosis: (6) Tremor: (7) Metabolic encephalopathy: (8) Enlarged prostate: (9) Bradycardia: (10) Syncope and collapse: Cards on case, another episode, Continue OBS, Tele, Speech eval, Neurology to see, EEG, CTH and CTA neg ROS-No Headache, No Visual Changes, No Nausea, No Vomiting, No Fever, No Chills, No Neck Pain or Stiffness, No Chest Pain, No Palpitations, No SOB, No AMEZQUITA, No Cough, No Sputum, No Wheezing, No Abdominal Pain, No Diarrhea, No Hematemesis, No Hemoptysis, No Unexpected Weight Loss, No Flank pain, No Melena, No Hematochezia, No Frequency, No Urgency, No Burning, No Hematuria, No Rashes, No Diaphoresis. Appetite is Normal Physical Exam Gen-AAO x 3, NAD, Afebrile, Tremor Head-NCAT, EOMI, PERRLA, Anicteric Sclera, No Posterior Pharyngeal Erythema Neck-Supple, No JVD, No Thyromegaly, No Masses, No LAD, No Bruits Lungs-Clear to Auscultation Bilaterally, No Rales, No Rhonchi, No Wheezing, No Crepitus Chest-No S4, +S1, +S2, No S3, No Murmurs, No Rubs, No Gallops, No Ectopy Abdomen-Soft, Bowel Sounds Present, Non Tender, Non Distended, No Hepatomegaly, No Splenomegaly, No Palpable Masses, No Rebound, No Rigidity, No Guarding Musculoskeletal-Full Range of Motion Bilaterally, No CVAT Extremities-No Cyanosis, No Clubbing, No Edema Nuero-Cranial Nerves II-XII grossly intact, Motor WNL, DTRs WNL, Strength WNL, Non Focal Psych-Normal Mood Results & Data Vital Signs (Past 12 Hours) Vital Signs Temp Pulse Pulse Resp BP BP Pulse Ox 05/12/19 07:19 54 L 05/12/19 07:05 37.0 C 54 L 18 176/97 H 94 05/12/19 04:36 36.8 C 51 L 20 172/93 H 95 05/12/19 00:00 48 L 176/96 H 05/11/19 23:02 36.4 C L 54 L 20 186/103 H 96 Current Diagnoses Parkinson's disease (05/12/19) Metabolic encephalopathy (05/12/19) Unspecified hydronephrosis (05/12/19) Urinary tract infection, site not specified (05/12/19) Benign prostatic hyperplasia without lower urinary tract symptoms (05/12/19) Bradycardia, unspecified (05/12/19) Tremor, unspecified (05/12/19) Transient alteration of awareness (05/12/19) Syncope and collapse (05/12/19) Abnormal radiologic findings on diagnostic imaging of left testicle (05/12/19) Allergies No Known Allergies Allergy (Verified 05/09/19 21:57) Height/Weight/Isolation Height 5 ft 8 in Weight 65.5 kg Chemistry 05/11/19 05/11/19 05/12/19 05:26 21:08 05:59 Sodium 141 140 143 Potassium 4.1 3.9 4.2 Chloride 108 H 108 H 109 H Carbon Dioxide 28 25 29 Anion Gap 5.0 7.0 5.0 BUN 21 H 25 H 18 Creatinine 0.75 0.91 0.88 Glucose 86 88 86 Microbiology 05/09/19 23:00 Urine,Clean Catch Urine Culture - Final Three types of organisms present, all high counts. Repeat collection recommended. No further identifications or sensitivities to follow. (1) Altered mental status Altered mental status type: transient alteration of awareness Qualified Code(s): R40.4 - Transient alteration of awareness
[2019-05-12] MEDS: AMLODIPINE BESYLATE 5 MG TAB PO SCH (09:23)
--- NOTE | 2019-05-12 09:37 | Urology Progress Note ---
Date of Service May 12, 2019 Assessment & Plan (1) Abnormal finding on diagnostic imaging of left testicle: 73yo M with Parkinson's Disease, chronic indwelling catheter, with left testicular abnormality Scrotal US results reviewed by Dr. Myrick, reassuring. Persistent large left scrotal extratesticular mass, complex collection. Neoplastic origin is not favored. UC&S negative for infection, high contamination - likely bladder debri. Okay to d/c antibiotics from perspective. Given patient's cognitive events, pending neurologic evaluation. We do recommend scrotal exploration once immediate health concerns are addressed. We will plan for close outpatient folllowup to discuss plans for surgical intervention upon discharge. I called and spoke to patient's Nilsa AL and Monty Hwang, updated them from perspective. They did inform me pt has been having alot of discomfort from scrotum, complaining of this off and on for some time. Verbalize good understanding of plan thus far. We will continue to monitor pt peripherally while inpatient. Thank you for the consultation. Please see additional comments per my attending physician as indicated. Subjective 3yo M with Parkinson's Disease, chronic indwelling catheter, with left testicular abnormality admitted s/p unresponsive episode. Pt unfortunately had another unresponsive episode last evening. Notes reviewed. Plan for neuro evaluation today. Pt now back to baseline cognition. Sitting up and eating breakfast in bed at time of evaluation. From standpoint, repeat scrotal US completed yesterday. No changes from perspective overnight. Review of Systems Review of Systems: All systems reviewed & are unremarkable except as noted in HPI & below Physical Exam Constitutional: no acute distress and not ill appearing Eyes: no nystagmus ENMT: Ears: no hearing impairment Neck: trachea midline Respiratory: no respiratory distress and no cough Cardiovascular: Vessels: no JVD Chest (Breasts): Chest: normal inspection of chest Gastrointestinal (Abdomen): Inspection/Auscultation: abdomen not distended and no abdominal edema Percussion/Palpation: abdomen soft; abdomen nontender Musculoskeletal: Head/Neck/Chest: normocephalic and head atraumatic Skin: no rashes, warm and dry Neurologic: awake; not confused and not obtunded Psychiatric: Orientation: alert and oriented x 3 Eye Contact: good eye contact Affect: no depressed affect Genitourinary: bladder normal to inspection adams draining cloudy with sediment scrotum not assessed today Lymphatic: no lymphadenopathy and no lymphedema Results & Data Vital Signs (Past 12 Hours) Vital Signs Temp Pulse Pulse Resp BP BP Pulse Ox 05/12/19 07:19 54 L 05/12/19 07:05 37.0 C 54 L 18 176/97 H 94 05/12/19 04:36 36.8 C 51 L 20 172/93 H 95 05/12/19 00:00 48 L 176/96 H 05/11/19 23:02 36.4 C L 54 L 20 186/103 H 96
[2019-05-12] MEDS: SODIUM CHLORIDE 0.9% 1000ML 1,000 ML IV SCH (12:45)
--- NOTE | 2019-05-12 13:35 | Neurology Consultation ---
Date of Consultation May 12, 2019 Assessment & Plan (1) Recurrent episodes of unresponsiveness: Recurrent episodes of unresponsiveness in a 73-year-old male with a history of moderate idiopathic right elicia-Parkinson's disease. The reason for these episodes is not entirely clear. I wonder if he could have a significant Parkinson's associated sleep or circadian rhythm disorder that renders him difficult to arouse from sleep. A side effect related to either the Sinemet or selegiline is also possible. There has not been any observed convulsive activity. At this point, I would recommend discontinuing the selegiline and reducing his dosage of Sinemet to 1 tablet 4 times per day. Although I think the yield of a routine EEG is low in this patient, I will order this test given the possibility of subclinical seizures. History of Present Illness Reason for Consultation: Unresponsive episode Requesting Physician: Anatoliy Blue MD Attending Physician: Jewel Cobos DO History of Present Illness The patient is a 73-[facility] who was apparently found by staff unresponsive. He was reportedly difficult to arouse although this issue resolved by the time he was assessed in the emergency department 3 days ago. He was felt to possibly have a urinary tract infection and he was admitted for further evaluation and management. Past medical history also notable for Parkinson's disease for which I have seen this patient in clinic, most recently on April 15, 2019. His Parkinson's disease is characterized by an intermittent right upper extremity resting tremor, bradykinesia, rigidity, as well as associated gait and postural instability. He also experiences occasional non- distressing visual hallucinations. He is prescribed both Sinemet and selegiline for his Parkinson's disease. No changes in his medications were made at his last appointment with me. The patient apparently had another episode of unresponsiveness last night. An urgent CT of the head was completed as there was some potential concern for a possible stroke as he apparently exhibited some left facial weakness. A tele-stroke consultation with [facility] was also obtained. He was apparently somewhat bradycardic during the observed episode. No other obvious abnormalities were found at that time. Allergies Allergy/AdvReac Type Severity Reaction Status Date / Time No Known Allergies Allergy Verified 05/09/19 21:57 Home Medications Home Medications Medication Instructions Recorded Confirmed Type carbidopa-levodopa [Sinemet] 1.5 tab PO QID 09/23/18 05/09/19 History oxybutynin chloride 5 mg PO BID 11/29/18 05/09/19 History tamsulosin 0.4 mg PO QAM 11/29/18 05/09/19 History diphenhydramine HCl [Banophen] 25 mg PO Q6H PRN 12/04/18 05/09/19 History nystatin 1 applic TOPICAL BID PRN 12/04/18 05/09/19 History carbamide peroxide [Ear Wax Drops] 5 drp OTIC (EAR) Q12H PRN 02/13/19 05/09/19 History docusate sodium 100 mg PO DAILY PRN 02/13/19 05/09/19 History selegiline 5 mg tablet 5 mg PO DAILY #30 tab 03/22/19 05/09/19 Rx dutasteride 0.5 mg capsule 0.5 mg PO DAILY #90 cap 04/12/19 05/09/19 History Patient History Medical History UTI (urinary tract infection) BPH (benign prostatic hyperplasia) Bilateral hydronephrosis Tremor Metabolic encephalopathy Pericardial effusion Enlarged prostate Sepsis Acute renal failure (Acute) Acute urinary retention (Acute) No significant past surgical history (Chronic) Failure to thrive (Inactive) Family History Father No pertinent family history Mother No pertinent family history Other Brain tumor Social History Preferred Language: Gambian Communication Ability: Effective Medical Imaging Technician Required: No Beliefs That Will Affect Care: None marital status: Single Current Living Situation: Personal Care Facility current occupational status: retired Feels Safe at Home: Yes Smoking Status: Never smoker Second Hand Exposure: No ; Hx Alcohol Use: No Hx Substance Use: No Review of Systems Constitutional: no fever and no chills Eyes: no blind spots and no diplopia Ear, Nose, Mouth, Throat: no tinnitus and no hearing loss Respiratory: no cough and no dyspnea Cardiovascular: no chest pain and no palpitations Gastrointestinal: no nausea and no vomiting Genitourinary: no dysuria and no urinary incontinence Musculoskeletal: no myalgia Integumentary: no rash and no lesions Neurologic: as per Subjective / HPI and + tremor(s); no dizziness, no headache(s), no abnormal speech and no memory loss Psychiatric: + visual hallucinations; no depression and no anxiety Hematologic / Lymphatic: no easy bleeding and no easy bruising Physical Exam Physical Exam: The patient is a well-developed, well-nourished elderly male. He is alert and fully oriented. Processing speed is slightly reduced. Recent and remote memory intact. Attention and concentration are normal. Patient exhibits a normal spontaneous speech pattern. He is able to name objects and repeat phrases. Patient exhibits an age-appropriate fund of knowledge and normal comprehension of vocabulary. Visual casas full to confrontation. Visual acuity normal. Pupils equal round reactive to light and accommodation. Eye movements normal. Facial sensation intact. There is no facial droop or weakness. Hearing intact. Palate elevates to midline. Shoulder shrug intact. Tongue protrudes to midline. Sensation intact to all modalities in all 4 limbs. Deep tendon reflexes intact and symmetrical for the arms and legs. Plantar responses downgoing bilaterally. There is no dysdiadochokinesia or dysmetria [id number] or [id number] bilaterally. Ophthalmoscopic examination reveals normal-appearing optic disks and posterior segments. No papilledema or hemorrhages. Carotid pulses normal bilaterally, no bruits to auscultation. Gait and station not tested due to safety concerns. Patient exhibits normal muscle strength for all 4 limbs proximally and distally. There is mild rigidity for the right upper limb. Muscle tone for other limbs normal. No atrophy. Patient exhibits an intermittent right upper extremity resting tremor. He is also moderately bradykinetic. Results & Data Vital Signs (Past 12 Hours) Vital Signs Temp Pulse Pulse Resp BP BP Pulse Ox 05/12/19 07:19 54 L 05/12/19 07:05 37.0 C 54 L 18 176/97 H 94 05/12/19 04:36 36.8 C 51 L 20 172/93 H 95 Laboratory Results WBC 5.72, hemoglobin 14.5, hematocrit 44.3, platelet count 170, sodium 143, potassium 4.2, BUN 18, creatinine 0.88, glucose 86, calcium 8.5, magnesium 2.[address] of the head completed last night is negative for hemorrhage or acute process. There is chronic microvascular ischemic disease. I reviewed the images as well as the radiologist interpretation of this test. A CT angiogram of the head and neck was unremarkable. No stenosis, occlusion, aneurysm, or dissection. Electrocardiogram reveals sinus bradycardia, 49 bpm. An echocardiogram reveals mild concentric left ventricular hypertrophy, normal left ventricular wall motion, ejection fraction 60 to 65%, mitral valve prolapse, no evidence of atrial septal defect.
[2019-05-12] MEDS: cefTRIAXone SODIUM 1,000 MG in DEXTROSE 5% 50 ML IV SCH (21:51)
[2019-05-13] MEDS: SODIUM CHLORIDE 0.9% 1000ML 1,000 ML IV SCH ×2 (01:30→14:49)
[2019-05-13 07:41] LABS: Hematocrit (blood only) 41.2 % (42-52); Hemoglobin 13.6 g/dL (14.0-18.0); Mean Corpuscular Hemoglobin 29.8 pg (25-34); Mean Corpuscular Volume 90.2 fL (80-100); Mean Platelet Volume 10.1 fL (7.4-10.4); Platelet Count 160 K/uL (130-400); RDW Coefficient of Variation 13.4 % (11.5-14.5); RDW Standard Deviation 44.3 fL (36.4-46.3); Red Blood Count 4.57 M/uL (4.7-6.1); White Blood Count 5.88 K/uL (4.8-10.8)
[2019-05-13] MEDS: TAMSULOSIN HCL 0.4 MG CAP PO SCH (07:46)
[2019-05-13] MEDS: AMLODIPINE BESYLATE 5 MG TAB PO SCH (07:46)
[2019-05-13] MEDS: CARBIDOPA/LEVODOPA 25/100MG TAB PO SCH ×4 (07:46→21:53)
[2019-05-13] MEDS: OXYBUTYNIN CHLORIDE 5 MG TAB PO SCH ×2 (07:46→21:54)
[2019-05-13] MEDS: FINASTERIDE 5 MG TAB PO SCH (07:46)
[2019-05-13] MEDS: POLYETHYLENE (MIRALAX) 17 GM PACK PO PRN (07:47)
[2019-05-13 08:13] LABS: BUN Creatinine Ratio 22.1 (10-20); Calcium 8.6 mg/dl (8.5-10.1); Creatinine Clr Calc Pharmacy 75.6 ml/min; Est GFR (African American) 102.3; Est GFR (Non-African American) 88.3
--- NOTE | 2019-05-13 13:24 | Electroencephalogram ---
EEG Procedure Note Date of Service May 13, 2019 Start / End Times Start Time: 0450 End Time: [address] Roland History 73-year-old with history of unresponsive episode question seizure activity Home Medication List Home Medications Medication Instructions Recorded Confirmed Type carbidopa-levodopa [Sinemet] 1.5 tab PO QID 09/23/18 05/09/19 History oxybutynin chloride 5 mg PO BID 11/29/18 05/09/19 History tamsulosin 0.4 mg PO QAM 11/29/18 05/09/19 History diphenhydramine HCl [Banophen] 25 mg PO Q6H PRN 12/04/18 05/09/19 History nystatin 1 applic TOPICAL BID PRN 12/04/18 05/09/19 History carbamide peroxide [Ear Wax Drops] 5 drp OTIC (EAR) Q12H PRN 02/13/19 05/09/19 History docusate sodium 100 mg PO DAILY PRN 02/13/19 05/09/19 History selegiline 5 mg tablet 5 mg PO DAILY #30 tab 03/22/19 05/09/19 Rx dutasteride 0.5 mg capsule 0.5 mg PO DAILY #90 cap 04/12/19 05/09/19 History Inpatient Medication List Amlodipine Besylate (Norvasc) 5 mg PO QAM [facility] Stop: 06/11/19 08:59 Last Admin: 05/13/19 07:46 Dose: 5 mg Documented by: [id number] Admin: 05/12/19 09:23 Dose: 5 mg Documented by: [id number] Carbidopa/Levodopa (Sinemet 25/100 Mg) 1 tab PO QID [facility] Stop: 06/11/19 16:59 Last Admin: 05/13/19 12:54 Dose: 1 tab Documented by: [id number] Admin: 05/13/19 07:46 Dose: 1 tab Documented by: [id number] Admin: 05/12/19 21:51 Dose: 1 tab Documented by: [id number] Admin: 05/12/19 17:01 Dose: 1 tab Documented by: [id number] Finasteride (Proscar) 5 mg PO DAILY [facility] Stop: 06/10/19 11:29 Last Admin: 05/13/19 07:46 Dose: 5 mg Documented by: [id number] Admin: 05/12/19 08:07 Dose: 5 mg Documented by: [id number] Admin: 05/11/19 14:02 Dose: 5 mg Documented by: [id number] Sodium Chloride (Nss 1000ml) 1,000 mls @ 75 mls/hr IV .[id number] [facility] Stop: 06/09/19 10:59 Last Admin: 05/13/19 01:30 Dose: 75 mls/hr Documented by: [id number] Infusion: 05/13/19 01:30 Dose: 75 mls/hr Documented by: [id number] Admin: 05/12/19 12:45 Dose: 75 mls/hr Documented by: [id number] Infusion: 05/12/19 12:45 Dose: 75 mls/hr Documented by: [id number] Admin: 05/11/19 23:37 Dose: 75 mls/hr Documented by: [id number] Infusion: 05/11/19 23:37 Dose: 75 mls/hr Documented by: [id number] Admin: 05/11/19 11:17 Dose: 75 mls/hr Documented by: [id number] Infusion: 05/11/19 11:17 Dose: 75 mls/hr Documented by: [id number] Admin: 05/11/19 00:11 Dose: 75 mls/hr Documented by: [id number] Infusion: 05/11/19 00:11 Dose: 75 mls/hr Documented by: [id number] Admin: 05/10/19 12:50 Dose: 75 mls/hr Documented by: [id number] Ceftriaxone Sodium 1,000 mg/ (Dextrose) 60 mls @ 100 mls/hr IV Q24H [facility]; Protocol Stop: 05/18/19 22:35 Last Infusion: 05/12/19 22:50 Dose: 0 mls/hr Documented by: [id number] Admin: 05/12/19 21:51 Dose: 100 mls/hr Documented by: [id number] Infusion: 05/11/19 22:37 Dose: 0 mls/hr Documented by: [id number] Admin: 05/11/19 22:01 Dose: 100 mls/hr Documented by: [id number] Infusion: 05/10/19 21:48 Dose: 0 mls/hr Documented by: [id number] Admin: 05/10/19 21:12 Dose: 100 mls/hr Documented by: [id number] Ioversol (Optiray 320 125ml) 120 ml IV ONCE PRN PRN Reason: Interaction Checking Stop: 05/15/19 20:36 Last Admin: 05/11/19 20:38 Dose: 120 ml Documented by: [id number] Oxybutynin Chloride (Ditropan) 5 mg PO BID [facility] Stop: 06/09/19 08:59 Last Admin: 05/13/19 07:46 Dose: 5 mg Documented by: [id number] Admin: 05/12/19 21:50 Dose: 5 mg Documented by: [id number] Admin: 05/12/19 08:05 Dose: 5 mg Documented by: [id number] Admin: 05/11/19 20:16 Dose: Not Given Documented by: [id number] Admin: 05/11/19 08:28 Dose: 5 mg Documented by: [id number] Admin: 05/10/19 20:05 Dose: 5 mg Documented by: [id number] Admin: 05/10/19 08:02 Dose: 5 mg Documented by: [id number] Polyethylene Glycol (Miralax Powder Packet) 17 gm PO DAILY PRN PRN Reason: Constipation Stop: 06/09/19 01:37 Last Admin: 05/13/19 07:47 Dose: 17 gm Documented by: [id number] Tamsulosin HCl (Flomax) 0.4 mg PO QAM [facility] Stop: 06/09/19 08:59 Last Admin: 05/13/19 07:46 Dose: 0.4 mg Documented by: [id number] Admin: 05/12/19 08:06 Dose: 0.4 mg Documented by: [id number] Admin: 05/11/19 07:37 Dose: 0.4 mg Documented by: [id number] Admin: 05/10/19 08:03 Dose: 0.4 mg Documented by: [id number] Discontinued Medications Carbidopa/Levodopa (Sinemet 25/100 Mg) 1.5 tab PO QID [facility] Stop: 06/09/19 08:59 Last Admin: 05/12/19 12:46 Dose: 1.5 tab Documented by: [id number] Admin: 05/12/19 08:08 Dose: 1.5 tab Documented by: [id number] Admin: 05/11/19 20:16 Dose: Not Given Documented by: [id number] Admin: 05/11/19 16:44 Dose: 1.5 tab Documented by: [id number] Admin: 05/11/19 14:02 Dose: 1.5 tab Documented by: [id number] Admin: 05/11/19 07:37 Dose: 1.5 tab Documented by: [id number] Admin: 05/10/19 20:06 Dose: 1.5 tab Documented by: [id number] Admin: 05/10/19 16:37 Dose: 1.5 tab Documented by: [id number] Admin: 05/10/19 12:50 Dose: 1.5 tab Documented by: [id number] Admin: 05/10/19 08:01 Dose: 1.5 tab Documented by: [id number] Ceftriaxone Sodium (Rocephin) 1,000 mg in 50 mls @ 100 mls/hr IV NOW STA Stop: 05/10/19 00:16 Last Infusion: 05/10/19 00:33 Dose: 0 mls/hr Documented by: [id number] Admin: 05/09/19 23:58 Dose: 100 mls/hr Documented by: [id number] Miscellaneous (Order Awaiting Action) 1 ea N/A QS [facility] Stop: 06/09/19 07:59 Last Admin: 05/11/19 08:28 Dose: Not Given Documented by: [id number] Admin: 05/11/19 00:06 Dose: Not Given Documented by: [id number] Admin: 05/10/19 15:44 Dose: Not Given Documented by: [id number] Admin: 05/10/19 08:00 Dose: Not Given Documented by: [id number] Selegiline HCl (Eldepryl) 5 mg PO DAILY [facility] Stop: 06/09/19 08:59 Last Admin: 05/12/19 08:06 Dose: 5 mg Documented by: [id number] Admin: 05/11/19 07:36 Dose: 5 mg Documented by: [id number] Admin: 05/10/19 08:03 Dose: 5 mg Documented by: [id number] Description This is a 21 electrode EEG with a single channel dedicated to limited EKG. The electrodes were placed in accordance with the International 10-20 system. Interpretation The predominant background activity consists of an irregular 8 Hz activity, of up to 40 mV in amplitude,seen symmetrically distributed over the posterior head regions bilaterally, spreading anteriorly. This activity attenuates nicely with eye-opening and other alerting procedures. Photic stimulation was performed and elicited no change in the background activity and no abnormal responses were seen. Hyperventilation was not performed A minimal amount of muscle and movement artifact activity contaminated the recording and did not hinder interpretation to any significant degree. Throughout the waking portion of the recording, no focal abnormalities, abnormal slow activity, or potentially epileptogenic discharges are seen. The patient entered the drowsy state and brief periods of stage II sleep with no further activation. In summary, this EEG was normal during wakefulness and sleep. No focal abnormalities, potentially epileptogenic discharges, or abnormal slow activity was seen. Clinical Correlation The absence of potentially epileptogenic activity does not exclude a seizure disorder, since interictally, EEGs can be normal. Clinical correlation is required. [facility] EEG Procedure Codes Indication for Procedure (1) Recurrent episodes of unresponsiveness: (2) Altered mental status: Neurology Neurology: 19212 EEG include record awake & sleepy
--- NOTE | 2019-05-13 13:39 | Neurology Progress Note ---
Date of Service May 13, 2019 Assessment & Plan (1) Recurrent episodes of unresponsiveness: Recurrent episodes of unresponsiveness in a 73-year-old male with a history of moderate idiopathic right elicia-Parkinson's disease. The reason for these episodes is not entirely clear. I wonder if he could have a significant Parkinson's associated sleep or circadian rhythm disorder that renders him difficult to arouse from sleep. A side effect related to either the Sinemet or selegiline is also possible. There has not been any observed convulsive activity. At this point, I would recommend discontinuing the selegiline and reducing his dosage of Sinemet to 1 tablet 4 times per day. Although I think the yield of a routine EEG is low in this patient, I will order this test given the possibility of subclinical seizures. (2) Altered mental status: (3) Parkinsons disease: This patient has a [id number] Parkinson's disease on carbidopa/levodopa 1 tablet 4 times a day and selegiline 5 mg daily. He was recently decreased from 1.5 tablets 4 times a day to 1 tablet 4 times a day because of his confusion. He seems to have no encephalopathy this morning and follows commands well. He is not having more unresponsive episodes today. The etiology of these episodes may be more related to medication then his underlying disease. However, Parkinson's patients can have hypoventilation and hypoxia at times (although this tends to be more in certain familial cases of parkinsonism). EEG was normal and showed no focal abnormalities or encephalopathy. Recommendations: 1. Keep Parkinson's medications the same for now. 2. Increase activity as able and physical, speech, and occupational therapy consults 3. Otherwise, I have no further neurologic testing or treatment recommendations to make at this time. 4. He will follow up with Dr. Roland as an outpatient. Overall, I spent a total of 35 minutes with this case including review of records, direct evaluation the patient at bedside, and discussion of the case with the patient at bedside, nursing staff, and Dr. Cummins including differential diagnosis and treatment options. Subjective Her headache. He is not dizzy or confused. He does not have any weakness or numbness of a new nature. Nursing reports no further unresponsive episodes. Blood pressure today was 178/84. His Sinemet was lowered from 1.5 tablets 4 times a day to 1 tablet 4 times a day. He does not feel, at this time, that he has any worsening of his Parkinson's disease. EEG was essentially normal during wakefulness and sleep. There were no focal a bnormalities or potentially epileptogenic discharges seen. Physical Exam Physical Exam: The patient is awake, alert, and attentive, with normal speech and communication. He is a little slow to respond but accurate. His memory seems reasonable. The patient is fully oriented, has a normal mood and affect, and has intact long and short term memory. Extraocular eye muscles are intact without nystagmus. He has a mildly positive glabellar sign. Facial strength and symmetry is normal bilaterally. He has a mild to moderate masklike face and has mild to moderate bradykinesia in general. Facial sensation is normal bilaterally in all 3 divisions of the fifth cranial nerve. Tongue is midline with normal strength bilaterally, however, it protrudes when he is concentrating on other task. He has a tendency to drool some. Gait is narrow based and fairly quick in a straight line. Turns are unstable and shuffle. Coordination of the arms is normal, without ataxia bilaterally. Has a mild intermittent right resting tremor. Motor strength is 5/5 in all major muscle groups of the arms and legs bilaterally, both proximally and distally. Muscle tone is increased bilaterally with some cogwheeling on the left and more lead pipe rigidity on the right. Results & Data Vital Signs (Past 12 Hours) Vital Signs Temp Pulse Pulse Resp BP Pulse Ox 05/13/19 08:00 45 L 05/13/19 07:07 36.5 C 55 L 20 178/84 H 95 05/13/19 03:14 36.8 C 65 17 168/91 H 91 PG Care Time/CCT Total # of Minutes Spent Total Time Spent with Patient: Total time spent is greater than 50% in coordination of care (as documented) at patient's floor/unit and/or counseling patient: (1) Altered mental status Altered mental status type: transient alteration of awareness Qualified Code(s): R40.4 - Transient alteration of awareness
--- NOTE | 2019-05-13 16:28 | Hospitalist Progress Note ---
Date of Service May 13, 2019 Assessment & Plan (1) Recurrent episodes of unresponsiveness: 73-year-old male with history of Parkinson's disease, BPH, urinary retention and Ulrich catheter, resident of [facility] Presented with syncope. SYNCOPAL EPISODES LIKELY SECONDARY TO PARKINSON'S DISEASE MEDICATIONS Evaluated by neurology service, selegiline discontinued, Sinemet decreased EEG unrevealing No recurrence of syncopal episodes so far today Continue to monitor [place] Boner consulted for episodes of bradycardia, likely contributing to syncopal episodes, recommend outpatient cardiac auditory [place] Urologist consulted outpatient work-up will recommend UTI RULED OUT Received 3 days of ceftriaxone HYPERTENSION Continue amlodipine, continue monitoring HISTORY OF BPH Continue finasteride, tamsulosin DVT prophylaxis SCDs for now in light of syncopal episodes Ambulating Disposition Anticipate return to personal senior living tomorrow when medically stable, cleared by neurology service Subjective Follow-up for episodes of unresponsiveness, Parkinson disease No recurrence of unresponsiveness since yesterday Seen resting in bed, comfortable, alert, oriented x2 Answers most questions appropriately States he feels better overall Denies confusion, recurrence of unresponsiveness today States that he is less sleepy Denies chest pain, shortness of breath, palpitations, dizziness No other symptoms Review of Systems Review of Systems: All systems reviewed & are unremarkable except as noted in HPI & below Physical Exam Physical Exam: General- oriented x 2, not in distress, speaks in sentences with no effort or accessory muscle use Head- atraumatic Eyes- PERRL, EOMI, anicteric ENT- oropharynx clear Neck- supple, no JVD, no adenopathy, no thyromegaly; carotids +2/2, no bruits appreciated Lungs- clear to auscultation bilaterally, no rales/wheezes Heart- normal rate, regular rhythm; no murmur, no gallop, no rub appreciated Abdomen- normal bowel sounds, nondistended, soft, nontender, no masses or hepatosplenomegaly Extremities- no pretibial edema, no calf tenderness; peripheral pulses intact Neuro- alert, oriented x 2; CN 2-12 grossly intact; motor 5/5 bilaterally;sensation 100% on all extremities; no other gross focal neurologic deficits Skin- warm & dry Results & Data Vital Signs (Past 12 Hours) Vital Signs Temp Pulse Pulse Resp BP Pulse Ox 05/13/19 15:09 37 C 55 L 17 156/89 H 96 05/13/19 08:00 45 L 05/13/19 07:07 36.5 C 55 L 20 178/84 H 95 Laboratory Results Laboratory Results - last 24 hr 05/13/19 05/13/19 07:00 07:00 WBC 5.88 RBC 4.57 L Hgb 13.6 L Hct 41.2 L MCV 90.2 MCH 29.8 MCHC 33.0 RDW Std Deviation 44.3 RDW Coeff of Kayley 13.4 Plt Count 160 MPV 10.1 Sodium 142 Potassium 4.0 Chloride 110 H Carbon Dioxide 28 Anion Gap 4.0 BUN 17 Creatinine 0.78 Est Cr Clr Drug Dosing 75.6 Est GFR ( Amer) 102.3 Est GFR (Non-Af Amer) 88.3 BUN/Creatinine Ratio 22.1 H Glucose 86 Calcium 8.6
[2019-05-14] MEDS: SODIUM CHLORIDE 0.9% 1000ML 1,000 ML IV SCH (04:10)
[2019-05-14] MEDS ORDERED: MAGNESIUM HYDROXIDE SUSP 30 ML UDC PO PRN (07:40)
[2019-05-14] MEDS: OXYBUTYNIN CHLORIDE 5 MG TAB PO SCH (08:05)
[2019-05-14] MEDS: CARBIDOPA/LEVODOPA 25/100MG TAB PO SCH ×2 (08:05→12:59)
[2019-05-14] MEDS: POLYETHYLENE (MIRALAX) 17 GM PACK PO PRN (08:05)
[2019-05-14] MEDS: AMLODIPINE BESYLATE 5 MG TAB PO SCH (08:05)
[2019-05-14] MEDS: TAMSULOSIN HCL 0.4 MG CAP PO SCH (08:05)
[2019-05-14] MEDS: FINASTERIDE 5 MG TAB PO SCH (08:05)
[2019-05-14] MEDS ORDERED: AMLODIPINE BESYLATE 5 MG TAB PO SCH ×2 (09:00→10:00)
[2019-05-14] MEDS ORDERED: AMLODIPINE BESYLATE 5 MG TAB PO STA (09:34)
--- NOTE | 2019-05-14 13:12 | Hospitalist Progress Note ---
Date of Service May 14, 2019 Assessment & Plan (1) Recurrent episodes of unresponsiveness: 73-year-old male with history of Parkinson's disease, BPH, urinary retention and Ulrich catheter, resident of [facility] Presented with syncope. SYNCOPAL EPISODES LIKELY SECONDARY TO PARKINSON'S DISEASE MEDICATIONS Evaluated by neurology service, Selegiline discontinued, Sinemet decreased EEG unrevealing No recurrence of syncopal episodes x 2 days now ff up with Neurologist in 1-2 weeks Game Operator consulted for episodes of bradycardia, unlikely contributing to syncopal episodes, recommend outpatient cardiac auditory [place] Urologist consulted outpatient work-up will recommend UTI RULED OUT Received 3 days of ceftriaxone HYPERTENSION not at goal Amlodipine increased from 5 to 7.5 mg po daily monitor daily HISTORY OF BPH Continue finasteride, tamsulosin CONSTIPATION milk of magnesium ordered monitor daily Disposition Return to personal residential today ff up with Primary Care Physician in 3-5 days ff up with Neurologist- [facility] in 1-2 weeks patient needs to be set up for Outpatient Cardiac Monitoring to r/o Arrhythmia Subjective ff up for altered mental status seen resting in bedside chair, comfortable oriented x 2, answers questions appropriately states he feels fine overall denies confusion, drowsiness states he is back to his baseline no BM x few days, declines laxatives, (+) flatus no other symptoms states he is ready for discharge today Review of Systems Review of Systems: All systems reviewed & are unremarkable except as noted in HPI & below Physical Exam Physical Exam: General- oriented x 2, not in distress, speaks in sentences with no effort or accessory muscle use Eyes- anicteric Neck- no JVD Lungs- clear BS , no crackles/wheezing bilaterally Heart- normal rate, regular rhythm; no murmurs Abdomen- normal bowel sounds, nondistended, soft, nontender Extremities- no pretibial edema, no calf tenderness Neuro- alert, oriented x 2; no gross focal neurologic deficits Skin- warm & dry Results & Data Vital Signs (Past 12 Hours) Vital Signs Temp Pulse Pulse Resp BP BP Pulse Ox 05/14/19 11:32 36.2 C L 80 16 91/63 L 94 05/14/19 07:31 37.1 C 69 18 150/89 H 94 05/14/19 07:26 54 L
--- NOTE | 2019-05-14 13:42 | Discharge Summary ---
Date of Service May 14, 2019 Admission HPI Per Admitting Provider DATE OF ADMISSION: 05/10/2019 CHIEF COMPLAINT: Unresponsive episode, confusion. HISTORY OF PRESENT ILLNESS: This is a 73-year-old male with past medical history significant for Parkinson's disease, BPH, urinary retention, currently on Ulrich catheter, currently living at [facility]. Was brought in because of unresponsive episode. As per the patient the nurses were giving pills and he blacked out and next thing he remembers is that there were nurses around him. He denies any biting of tongue or any shaking. As per nursing staff, his eyes were rolled up and could not follow the commands like he was not able to drink from the straw and he was sent here. Currently, he is back to his baseline. His initial workup was negative except for UA being positive. Denies any fever, chills. No headache. He says he is seeing okay. No nausea, no cough, no sore throat, no difficulty swallowing. He says he eats a regular diet though has some difficulty with chewing the food because of loss of upper teeth. No chest pain, no shortness of breath, no abdominal pain. Normal bowel movements. He says he is on Ulrich catheter for a few months now. No rash seen. No swelling of his extremities. Currently resting comfortably and hemodynamically stable. As per the previous admission notes, was not following with the PCP for greater than 30 years, and presented from for worsening renal function and altered mental status last admission. He is currently an [facility] resident. 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 He says his cousin and deputy coroner investigator and a friend are his power of attorneys. ALLERGIES: No known drug allergies. PAST MEDICAL HISTORY: As mentioned above. PAST SURGICAL HISTORY: No significant past surgical history. SOCIAL HISTORY: Currently at [facility]. No alcohol use, no substance use, no smoking history. REVIEW OF SYSTEMS: As per HPI. Rest of review of systems negative. Admission Exam Per Admitting Provider PHYSICAL EXAMINATION: GENERAL: The patient is alert and oriented, not in acute distress. VITAL SIGNS: Temperature 36.9, pulse 47, respiratory rate 20, blood pressure 146/78, oxygen 94% on room air. HEENT: No pallor, no icterus. Pupils equal, round, reactive to light. NECK: No JVD, no neck masses, no carotid bruits. CARDIOVASCULAR: S1, S2 heard. No murmurs appreciated. RESPIRATORY SYSTEM: Normal AP diameter. No accessory muscle use. No wheezing, no crackles. ABDOMEN: Soft, bowel sounds present, nontender. No distention. CENTRAL NERVOUS SYSTEM: Alert and oriented, not in acute distress. Nonfocal. EXTREMITIES: No edema, no erythema seen. Principal Diagnosis ALTERED MENTAL STATUS LIKELY SECONDARY TO PARKINSON'S DISEASE MEDICATIONS Discharge Exam General- oriented x 2, not in distress, speaks in sentences with no effort or accessory muscle use Eyes- anicteric Neck- no JVD Lungs- clear BS , no crackles/wheezing bilaterally Heart- normal rate, regular rhythm; no murmurs Abdomen- normal bowel sounds, nondistended, soft, nontender Extremities- no pretibial edema, no calf tenderness Neuro- alert, oriented x 2; no gross focal neurologic deficits Discharge Data Allergies Allergy/AdvReac Type Severity Reaction Status Date / Time No Known Allergies Allergy Verified 05/09/19 21:57 Consultations 05/10/19 00:04 ED Decision to Admit Stat 05/10/19 01:38 Consult Case Management - Discharge Planning Routine 05/11/19 10:16 Consult Urology Routine 05/11/19 12:44 Consult Cardiology Routine 05/12/19 07:00 Consult Neurology Routine Ordered Studies 05/09/19 22:21 CT head/brain wo con Stat IMPRESSION: No acute intracranial findings. 05/11/19 11:38 US scrotum/testicle Urgent FINDINGS: Right testis: Normal echogenicity and echotexture. Testis measures 3.4 x 3.2 x 3.4 cm. Normal color Doppler flow and arterial and venous waveforms in the testicular parenchyma. Epididymal head normal. No hydrocele. No varicocele. Left testis: Redemonstration of the extratesticular mass in the left scrotum, which demonstrates fairly homogeneous mildly hypoechogenic internal echoes and peripheral vascularity. Multifocal peripheral calcifications may be present. This collection measures 14.1 x 8.4 x 10.6 cm similar to prior, previously 13.4 x 10.3 x 9.0 cm.. Normal echogenicity and echotexture. Testis measures 2.5 x 1.0 x 1.7 cm. Grossly normal color Doppler flow and arterial and venous waveforms in the testicular parenchyma. Epididymides not well evaluated. No hydrocele. No varicocele. Symmetry of perfusion of the testes it is not well assessed. Other: None. IMPRESSION: Persistent large left scrotal extratesticular mass, which has the appearance of a complex collection. Urologic consultation for possible drainage versus surgery versus continued imaging follow-up recommended. This is indeterminate. A neoplastic etiology is not favored though is difficult to exclude. 05/11/19 20:25 CT angio head w con Stat CT angio neck with con Stat CT head/brain wo con Stat IMPRESSION: 1. No significant stenosis, occlusion, or aneurysm within the [place]. 2. No significant stenosis, occlusion, or dissection identified within the carotid or vertebral arteries. Hospital Course (1) Recurrent episodes of unresponsiveness: 73-year-old male with history of Parkinson's disease, BPH, urinary retention and Ulrich catheter, resident of [facility] Presented with syncope. SYNCOPAL EPISODES LIKELY SECONDARY TO PARKINSON'S DISEASE MEDICATION SIDE EFFECT Patient had recurrence of syncopal episodes while being observed in the hospital Evaluated by neurology service, presentation felt to be side effect of his Parkinson's medications; selegiline discontinued, Sinemet decreased EEG unrevealing No recurrence of syncopal episodes since medications change as above Cleared for discharge to [facility] per neurology service ff up with Dr. Roland neurologist in 1 to [address] Vargas consulted for episodes of bradycardia, unlikely contributing to syncopal episodes, recommend outpatient 2-week cardiac monitoring -[facility] [place] Urologist consulted - Dr. Bullard Recommendations: "Scrotal US results reviewed by Dr. Myrick, reassuring. Persistent large left scrotal extratesticular mass, complex collection. Neoplastic origin is not favored. UC&S negative for infection, high contamination - likely bladder debri. Okay to d/c antibiotics from perspective. Given patient's cognitive events, pending neurologic evaluation. We do recommend scrotal exploration once immediate health concerns are addressed. We will plan for close outpatient folllowup to discuss plans for surgical intervention upon discharge." follow up with Urologist Dr. Bullard as outpatient UTI RULED OUT Received 3 days of ceftriaxone HYPERTENSION not at goal Amlodipine increased from 5 to 7.5 mg po daily monitor daily HISTORY OF BPH Continue finasteride, tamsulosin CONSTIPATION milk of magnesium ordered monitor daily Disposition Return to personal fdc ff up with Primary Care Physician in 3-5 days ff up with Neurologist- [facility] in 1-2 weeks ff up with Urologist- Dr. [facility] in 1-2 weeks patient needs to be set up for Outpatient Cardiac Monitoring to r/o Arrhythmia Total Time Total Time Spent Total Time Spent (In Minutes): 50 MINUTES Discharge Plan Discharge Items Patient Disposition: Personal Detention Reason For Visit: CONFUSION,UNRESPONSIVE EPISODE Discharge Diagnosis: ALTERED MENTAL STATUS LIKELY SECONDARY TO PARKINSON'S DISEASE MEDICATIONS Condition on Discharge: Good Activity: Resume your previous activity Activity Comment: RESUME ACTIVITY GRADUALLY TOLERATED, FALL PRECAUTIONS Lifting: Wait until after follow-up appointment Exercise/Sports: Wait until after follow-up appointment Driving/Machine Use: NO DRIVING Non-emergency contact: Primary Care Provider Call non-emergency contact if: you have any medication questions, your symptoms worsen and you have a fever Follow-up/Referrals: Terry Roland MD [Physician] [facility] - Diet: Heart Healthy Addtl Attending Provider Instructions: SELEGILINE DISCONTINUED. SINEMET DECREASED FROM 1.5 TABLET TO 1 TABLET QID. PATIENT NEEDS OUTPATIENT CARDIAC MONITORING TO R/O ARRHYTHMIA. PLEASE REFER TO ACCOMPANYING HOSPITAL DISCHARGE SUMMARY FOR FURTHER DETAILS. ff up with Primary Care Physician in 3-5 days ff up with Neurologist- Dr[facility] in 1-2 weeks ff up with Urologist- Dr. [facility] in 1-2 weeks patient needs to be set up for Outpatient Cardiac Monitoring to r/o Arrhythmia Pending Studies at Discharge: No Stand-Alone Forms: My [facility] Skilled Items Patient informed of condition?: Yes DNR: No Discharge Level of Care: Other Communicable Disease: No Discharge Prognosis: Stable Lines: None Urinary Catheter: Yes Medications and DC Order Prescriptions: New amlodipine [Norvasc] 5 mg Tablet 7.5 mg PO QAM 30 Days Qty: 45 RF: 0 carbidopa-levodopa 25-100 mg Tablet 1 tab PO QID 30 Days Qty: 120 RF: 0 Continued dutasteride 0.5 mg capsule 0.5 mg PO DAILY Qty: 90 RF: 0 tamsulosin 0.4 mg Capsule 0.4 mg PO QAM RF: 0 oxybutynin chloride 5 mg Tablet 5 mg PO BID RF: 0 nystatin 100,000 unit/gram Cream 1 applic TOPICAL BID PRN (Reason: AFFECTED SKIN AREA) RF: 0 diphenhydramine HCl [Banophen] 25 mg Tablet 25 mg PO Q6H PRN (Reason: Congestion) RF: 0 docusate sodium 100 mg capsule 100 mg PO DAILY PRN (Reason: constipation) RF: 0 carbamide peroxide [Ear Wax Drops] 6.5 % Drops 5 drp OTIC (EAR) Q12H PRN (Reason: ear wax removal) RF: 0 Discontinued selegiline HCl 5 mg tablet 5 mg PO DAILY Qty: 30 RF: 5 carbidopa-levodopa [Sinemet] 25-100 mg Tablet 1.5 tab PO QID RF: 0 Discharge Orders: Discharge Order (Routine); Ordered 05/14/19 Ordered By: Kailash Vela Admission Data Admit Date/Time: 05/12/19 07:00 Attending Provider: Kailash Vela Admit Provider: Anatoliy Blue Primary [facility]: [facility] Other Providers: Anatoliy Blue ; Taras Myrick ; Bill Vargas ; Terry Roland ; Jewel Cobos
== END 2019-05-14 15:45 | disposition home or self-care (01) | DRG 312 ==
LOC: 2W 20:57 → ED 20:57 → 2W 05-10 01:09 → SUATTDRO 05-12 07:00

== ENCOUNTER 2019-07-06 05:48 | Inpatient (IN) ==
--- NOTE | 2019-06-23 08:06 | PAT Medication Instructions ---
Medication Instructions Date of Service June 23, 2019 Home Medications oxybutynin chloride 5 mg PO BID tamsulosin 0.4 mg PO QAM diphenhydramine HCl [Banophen] 25 mg PO Q6H PRN nystatin 1 applic TOPICAL BID PRN carbamide peroxide [Ear Wax Drops] 5 drp OTIC (EAR) Q12H PRN docusate sodium 100 mg PO DAILY PRN acetaminophen 325 mg capsule 650 mg PO Q4H PRN carbidopa 25 mg-levodopa 100 mg tablet 1 tab PO QID amlodipine 5 mg PO QAM dutasteride 0.5 mg PO QAM finasteride 5 mg PO QAM STOP taking 24 hours before surgery nystatin 1 applic TOPICAL BID PRN DO NOT take the morning of surgery oxybutynin chloride 5 mg PO BID diphenhydramine HCl [Banophen] 25 mg PO Q6H PRN docusate sodium 100 mg PO DAILY PRN Take morning of surgery With a small sip of water, OTHERWISE NOTHING TO EAT OR DRINK AFTER MIDNIGHT: tamsulosin 0.4 mg PO QAM carbamide peroxide [Ear Wax Drops] 5 drp OTIC (EAR) Q12H PRN (if needed) acetaminophen 325 mg capsule 650 mg PO Q4H PRN (okay to take up to 4 hours prior to surgery if needed) carbidopa 25 mg-levodopa 100 mg tablet 1 tab PO QID amlodipine 5 mg PO QAM dutasteride 0.5 mg PO QAM finasteride 5 mg PO QAM Take evening before surgery oxybutynin chloride 5 mg PO BID diphenhydramine HCl [Banophen] 25 mg PO Q6H PRN (if needed) carbamide peroxide [Ear Wax Drops] 5 drp OTIC (EAR) Q12H PRN (if needed) docusate sodium 100 mg PO DAILY PRN (if needed) acetaminophen 325 mg capsule 650 mg PO Q4H PRN (if needed) carbidopa 25 mg-levodopa 100 mg tablet 1 tab PO QID Other Notes If you have any questions please call us at [phone] or [phone] or [phone] or [phone]
--- NOTE | 2019-06-23 11:36 | PAT Medication Instructions ---
Medication Instructions Date of Service June 23, 2019 Home Medications oxybutynin chloride 5 mg PO BID tamsulosin 0.4 mg PO QAM diphenhydramine HCl [Banophen] 25 mg PO Q6H PRN nystatin 1 applic TOPICAL BID PRN carbamide peroxide [Ear Wax Drops] 5 drp OTIC (EAR) Q12H PRN docusate sodium 100 mg PO DAILY PRN acetaminophen 325 mg capsule 650 mg PO Q4H PRN carbidopa 25 mg-levodopa 100 mg tablet 1 tab PO QID amlodipine 5 mg PO QAM dutasteride 0.5 mg PO QAM finasteride 5 mg PO QAM STOP taking 24 hours before surgery nystatin 1 applic TOPICAL BID PRN DO NOT take the morning of surgery oxybutynin chloride 5 mg PO BID diphenhydramine HCl [Banophen] 25 mg PO Q6H PRN docusate sodium 100 mg PO DAILY PRN Take morning of surgery With a small sip of water, OTHERWISE NOTHING TO EAT OR DRINK AFTER MIDNIGHT: tamsulosin 0.4 mg PO QAM carbamide peroxide [Ear Wax Drops] 5 drp OTIC (EAR) Q12H PRN (if needed) acetaminophen 325 mg capsule 650 mg PO Q4H PRN (okay to take up to 4 hours prior to surgery if needed) carbidopa 25 mg-levodopa 100 mg tablet 1 tab PO QID amlodipine 5 mg PO QAM dutasteride 0.5 mg PO QAM finasteride 5 mg PO QAM Take evening before surgery oxybutynin chloride 5 mg PO BID carbamide peroxide [Ear Wax Drops] 5 drp OTIC (EAR) Q12H PRN (if needed) docusate sodium 100 mg PO DAILY PRN (if needed) acetaminophen 325 mg capsule 650 mg PO Q4H PRN (if needed) carbidopa 25 mg-levodopa 100 mg tablet 1 tab PO QID Other Notes If you have any questions please call us at [phone] or [phone] or [phone] or [phone]
--- NOTE | 2019-06-24 09:33 | Anesthesiology Consultation ---
Date of Service June 24, 2019 Assessment & Plan (1) Encounter for pre-operative examination: - Awaiting review preop testing (labs). - Awaiting surgeon-ordered PCP preop evaluation (Dr. Nitin Adams). - Cardiology (inpatient): 05/11/19: previous episode of loss of consciousness and bradycardia. Telemetry during hospital stay predominately reveals sinus bradycardia and sinus rhythm in the range of 50-60bpm (noted bradycardia down to the 40bpm range overnight). No pauses or episodes of AVB noted on telemetry thus far. ECHO done 05/10/19 (see testing section for details). "I do not see any a rrhythmia that would explain his loss of consciousness episode." T/C outpatient radiographer cardiac catheterization for further evaluation. Holter monitor done 06/17/19 at [facility] (results still pending)- awaiting final report. - Neurology: 06/02/19: seen after 04/2019 [facility] admission for LOC/unresponsiveness. No acute neurologic findings/unclear etiology. EEG done 05/13/19 ([facility]) reviewed by neurology and felt "EEG was normal and showed no focal abnormalities or encephalopathy." Patient recommended to discontinue Azilect (no longer on). "Much improved since his hospitalization). - POA: Hx parkinson's with cognitive impairment. [facility] Home resident. Able to answer/follow simple commands. Patient's POA is cou sin (Monty Hwang) who states he will be present AM DOS (OR made aware). - Possible difficult intubation: due to anatomy. Chart Review Chart Review: Patient seen in Pre Admission Testing Teaching & Discussion Pre-Anesthesia Teaching/Discussion Notes: Instructed NPO after midnight before surgery,except medications with 15 cc of water. Medication instructions provided according to the PAT guidelines. History Surgery Operation Date: 07/06/19 13:20 Proposed Procedures p Left Scrotal Exploration - Taras Myrick MD Height/Weight Height: 5 ft 6 in Weight: 64.5 kg Allergies Allergy/AdvReac Type Severity Reaction Status Date / Time No Known Allergies Allergy Verified 06/23/19 07:38 Medications Home Medications Medication Instructions Recorded Confirmed Last Taken oxybutynin chloride 5 mg PO BID 11/29/18 06/23/19 04/03/19 tamsulosin 0.4 mg PO QAM 0406/23/19 04/03/19 diphenhydramine HCl [Banophen] 25 mg PO Q6H PRN 12/04/18 06/23/19 Unknown nystatin 1 applic TOPICAL BID PRN 12/04/18 06/23/19 Unknown carbamide peroxide [Ear Wax Drops] 5 drp OTIC (EAR) Q12H PRN 02/13/19 06/23/19 Unknown docusate sodium 100 mg PO DAILY PRN 02/13/19 06/23/19 Unknown acetaminophen 325 mg capsule 650 mg PO Q4H PRN cap 06/02/19 06/23/19 Unknown carbidopa 25 mg-levodopa 100 mg 1 tab PO QID 06/15/19 06/23/19 Unknown tablet amlodipine 5 mg PO QAM 06/23/19 06/23/19 Unknown dutasteride 0.5 mg PO QAM 06/23/19 06/23/19 Unknown finasteride 5 mg PO QAM 06/23/19 06/23/19 Unknown Past Medical History Medical History Bradycardia BPH (benign prostatic hyperplasia) Bilateral hydronephrosis Tremor Acute renal failure hx 10/[address] MVP (mitral valve prolapse) Moderate prolapse of the posterior mitral valve leaflet per 04/2019 ECHO Parkinson disease with cognitive impairment Exercise / Class Metabolic Activity III < 4 Walking/Shop/Light housework (walker PRN) Past Family History Family History Father No pertinent family history Mother No pertinent family history Other Brain tumor Past Surgical History Surgical History No significant past surgical history Past Anesthesia History No Family Hx of Anesthesia Complications History of PONV No Hx of PONV Social History Smoking Status: Never smoker Do You Dip or Chew Tobacco: No ([facility]) Hx Alcohol Use: No Hx Substance Use: No substance use type: does not use Review of Systems Patient denies chest pain, shortness of breath, cough, wheezing, palpitations. Physical Exam Vital Signs VITALS BP 90/60 (per patient, BP typically runs in the lower-normal range) P 82 TEMP 97.7 SP02 97%RA RESP 16 PHYSICAL Full neck and c-spine range of motion. Full TMJ range of motion. TMD 3 finger breaths Mallampati Score 4 (very small oral opening) Dentition: several missing teeth/rotted (no dental care x many years) Lungs: clear throughout to auscultation Cardiac: regular rate and rhythm, no murmurs noted Spine: normal Carotid arteries: negative bruit Extremities: no edema Large tongue Testing Electrocardiogram Date: 05/09/19 SB at 49bpm. LAD. NS TWA. Chest X-Ray Date: 05/09/19 Atherosclerosis of the aortic arch. Cardiac silhouette enlarged. No focal opacity. No large effusion or pneumothorax. Degenerative changes of the thoracic spine. Degenerative changes of the right glenohumeral joint. Hiatal hernia may be present. Cardiomegaly. No other convincing evidence of acute cardiopulmonary disease. Echocardiogram Date: 05/10/19 LVEF 60-65%. No RWMA. Mild AR. Mildly MV thickening. PASP 35mmhg. Mild MR/TR. Moderate prolapse of the posterior mitral valve leaflet. Other Testing Head/neck CTA: 05/10/19: No significant stenosis, occlusion, or aneurysm within the [place]. No significant stenosis, occlusion, or dissection identified within the carotid or vertebral arteries.
[2019-06-24 10:46] LABS: Basophils # (auto) 0.03 K/uL (0-0.2); Basophils % (auto) 0.5 %; Eosinophils # (auto) 0.14 K/uL (0-0.5); Eosinophils % (auto) 2.1 %; Hematocrit (blood only) 42.9 % (42-52); Hemoglobin 14.1 g/dL (14.0-18.0); Immature Granulocytes # (auto) 0.01 K/uL (0.00-0.02); Immature Granulocytes % (auto) 0.2 %; Lymphocytes # (auto) 0.86 K/uL (1.2-3.4); Lymphocytes % (auto) 12.9 %; Mean Corpuscular Hemoglobin 29.6 pg (25-34); Mean Corpuscular Hgb Conc 32.9 g/dL (32-36); Mean Corpuscular Volume 90.1 fL (80-100); Mean Platelet Volume 10.3 fL (7.4-10.4); Monocytes # (auto) 0.46 K/uL (0.11-0.59); Monocytes % (auto) 6.9 %; Neutrophils # (auto) 5.15 K/uL (1.4-6.5); Neutrophils % (auto) 77.4 %; Platelet Count 193 K/uL (130-400); RDW Coefficient of Variation 13.3 % (11.5-14.5); RDW Standard Deviation 43.9 fL (36.4-46.3); Red Blood Count 4.76 M/uL (4.7-6.1); White Blood Count 6.65 K/uL (4.8-10.8)
[2019-06-24 10:53] LABS: Appearance Urine Turbid (Clear); BUN Creatinine Ratio 22.4 (10-20); Bacteria Urine Automated 3+ (Negative); Bilirubin Urine Negative (Negative); Blood Urine 1+ (Negative); Calcium 9.2 mg/dl (8.5-10.1); Color Urine Yellow; Creatinine Clr Calc Pharmacy 49.7 ml/min; Est GFR (Non-African American) 61.3; Glucose Urine UA Negative (Negative); Ketones Urine Negative (Negative); Leukocyte Esterase Urine 3+ (Negative); Nitrite Urine Positive (Negative); Potassium 3.9 mmol/L (3.5-5.1); Specific Gravity Urine 1.018 (1.000-1.030); Urobilinogen Urine Negative (Negative); WBC Urine Automated >30 /hpf (0-5); pH Urine 7.5 (4.5-7.5)
[2019-06-24 11:04] LABS: Protein Urine 1+ (Negative)
[2019-06-24 11:05] LABS: Sulfosalicylic Acid Urine Positive (Negative)
[2019-07-06] MEDS ORDERED: LR 15ML/HR IV SCH (06:00)
[2019-07-06] MEDS ORDERED: CEFAZOLIN 2000MG 2,000 MG/15 ML SYR IV SCH (06:00)
[2019-07-06] MEDS ORDERED: PROPOFOL IV EMULSION 10 MG/ML 20 ML VIAL IV ONE (06:19)
[2019-07-06] MEDS ORDERED: LIDOCAINE HCL 2% 2 ML VIAL/AMP(20MG/ML) INFIL ONE (06:19)
[2019-07-06] MEDS ORDERED: fentaNYL citrate 100 MCG/2 ML VIAL ONE (06:19)
[2019-07-06] MEDS ORDERED: ONDANSETRON INJ 2 MG/ML 2 ML VIAL ONE (06:26)
[2019-07-06] MEDS ORDERED: ATROPINE SULFATE 0.1 MG/ML 10ML SYR IV PRN (06:46)
[2019-07-06] MEDS ORDERED: fentaNYL citrate 100 MCG/2 ML VIAL IV PRN (06:46)
[2019-07-06] MEDS ORDERED: ONDANSETRON INJ 2 MG/ML 2 ML VIAL IV PRN ×2 (06:46→10:49)
[2019-07-06] MEDS ORDERED: ePHEDrine sulfate 50 MG/ML AMP IV PRN (06:46)
[2019-07-06] MEDS ORDERED: BACITRACIN OINT 15 GM TUBE ONE (07:08)
[2019-07-06] MEDS ORDERED: BUPIVACAINE 0.5 % 5 MG/1 ML MPF 30ML VIAL ONE (07:08)
--- NOTE | 2019-07-06 07:18 | History & Physical Bridge Note ---
Date of Service July 06, 2019 History & Physical Bridge Note I have examined the patient, reviewed the History & Physical and in the interval since the performance of the History & Physical I have noted the following changes of clinical significance: no changes noted pt with 2 primary issues scrotal swelling/hematoma - plan for scrotal exploration and potential washout/repair urinary retention he has a large prostate - but also Parkinsons. We will attempt limited TURP/TUIP with the hope of restoring some natural voiding.
[2019-07-06] MEDS ORDERED: ePHEDrine sulfate 50 MG/ML SYR ONE (08:07)
--- NOTE | 2019-07-06 09:57 | Operative Report ---
PG Post Operative Report Pre & Post Diagnosis Operation Date: 07/06/19 07:15 Pre-Op Diagnosis: Left Scrotal Mass, Benign Prostatic Hyperplasia Post-Op Diagnosis: Pyocele, Benign Prostatic Hyperplasia I identified the patient and participated in the time-out.: Yes Procedure Operation Date: 07/06/19 07:15 Actual Procedures p Left Scrotal Exploration, Excision of Pyocele, Simple Orchiectomy(Left) - Taras Myrick MD s Cystoscopy, Transurethral Resection of Prostate(Not Applicable) - Taras Myrick MD Surgeon Lenin Myrick MD Machine Operator Hop Worker none Estimated Blood Loss 10 Findings Consistent with Post-Op Diagnosis Specimens scrotal cyst with testicular remnant Description of Procedure Patient was identified in the preoperative holding area, appropriate informed consents reviewed and completed and the patient was transported to the operating suite. He was initially placed in supine position where sterilely prepped and draped. Of note he has a large scrotal swelling which is been present for 3+ decades. Recently this had an ultrasound findings that suggested solid component or blood/pus. We elected to explore this as he was also symptomatic and is been hospitalized on several occasions with infectious symptoms. A midline scrotal incision was made for approximately 7 cm. I skeletonized to the superficial surface of the tunica vaginalis of cyst which was extremely thickened/indurated. I was able to ultimately deliver the tunica vaginalis intact. I skeletonized it further and could not easily palpate the testicle. I did skeletonize the cord structures leading to this hydrocele/cyst, and identified the vas as well as the major vasculature. Away from the presumed area of the testicle I made an incision in the tunica vaginalis which immediately started to pour out copious amounts of pus. We drained this entirely. Inspection internally revealed a necrotic testis and necrotic hydrocele wall. Inspection reveals what I suspect was initially a simple hydrocele and ultimately bled secondary to minor trauma or other cause and ultimately became infected. Inspection revealed a significant degree of necrosis of the testis to the point where I felt that it was no longer salvageable. Rather than attempt to preserve the remaining aspects of this testis, I turned my attention to the spermatic cord and divided the cord and the 3 packets. I suture-ligated each of these with 2-0 Vicryl. I then excised distal to this to excise the remaining aspect of this pyocele as well as the remnant of the testis. This was passed off the table as a specimen. I then obtained meticulous hemostasis from the scrotal wall and irrigated copiously with sterile water. A [place] drain was placed in the dependent portion of the scrotum and the incision was closed in 2 layers with a 2-0 Vicryl to reapproximate the rectus fascia and a 3-0 chromic vertical mattress sutures to reapproximate the skin. The patient was subsequently repositioned into lithotomy and sterilely prepped and draped for a cystoscopy. To begin I passed a 27 [place] resectoscope with 30 degree lens and visual obturator. Inspection revealed no evidence of stricture disease. He has a notably enlarged prostate with substantial lateral lobe hypertrophy and an intravesical component. His bladder is severely trabeculated with a large diverticulum arising from the right posterior wall with stone in the dependent portion of this diverticulum. He also has several other shallow diverticuli on the left lateral wall as well as the dome of the bladder. There are no tumors or other gross abnormalities of the mucosa aside from the aforementioned diverticuli. After that inspection, exchanged visual light rail operator for resecting element using a button electrode. I began on the left lateral lobe and at the bladder neck and began to resect the intravesical component and create an incision in the prostate. This incision was carried down to the verumontanum. I then resected a portion of the left lateral lobe followed by the right bladder neck and a portion of the right lateral lobe. Care was taken to avoid over resection as the patient also suffers from Parkinson's disease and I worry about incontinence. At the conclusion of my resection I felt the bladder neck and open sufficiently as well as the lateral lobes of the prostate. There is still substantial residual tissue remaining. There was excellent hemostasis. I guided a 22 [place] three-way catheter into the bladder without difficulty. The patient was substernally extubated and taken to the PACU in stable condition after placing appropriate dressings on his prior scrotal incision. There were no complications. I attest to the content of the Intraoperative Record and any orders documented therein. Any exceptions are noted below.
--- NOTE | 2019-07-06 10:17 | Anesthesiology Progress Note ---
Date of Service July 06, 2019 Anesthesia Post Procedure Vital Signs Vital Signs: Temp Pulse Pulse Resp BP BP Pulse Ox 07/06/19 10:15 78 17 118/82 99 07/06/19 10:05 79 19 132/90 100 07/06/19 09:55 76 19 120/80 98 07/06/19 09:47 97.5 F L 77 14 110/79 97 07/06/19 06:19 97.9 F 62 20 136/71 98 Transfer of Care Handoff Completed per policy Notes Mental Status: alert / awake / arousable and participated in evaluation Patient Amnestic to Procedure: Yes Nausea / Vomiting: adequately controlled Pain: adequately controlled Airway Patency, RR, SpO2: stable & adequate BP & HR: stable & adequate Hydration State: stable & adequate Anesthetic Complications: no major complications apparent and Pt Satisfied with anesthetic care
[2019-07-06] MEDS ORDERED: ACETAMINOPHEN W/CODEINE #3 1 TAB PO PRN ×2 (10:49)
[2019-07-06] MEDS ORDERED: DOCUSATE SODIUM 100 MG CAP PO PRN (10:49)
[2019-07-06] MEDS ORDERED: ACETAMINOPHEN 325 MG TAB PO PRN (10:49)
[2019-07-06] MEDS: LACTATED RINGER'S 1,000 ML IV SCH ×2 (11:00→21:09)
[2019-07-06 11:20] LABS: Basophils # (auto) 0.01 K/uL (0-0.2); Basophils % (auto) 0.2 %; Eosinophils % (auto) 1.8 %; Hematocrit (blood only) 42.7 % (42-52); Hemoglobin 13.8 g/dL (14.0-18.0); Immature Granulocytes # (auto) 0.01 K/uL (0.00-0.02); Immature Granulocytes % (auto) 0.2 %; Lymphocytes # (auto) 1.12 K/uL (1.2-3.4); Lymphocytes % (auto) 20.1 %; Mean Corpuscular Volume 89.7 fL (80-100); Mean Platelet Volume 10.1 fL (7.4-10.4); Monocytes % (auto) 3.6 %; Neutrophils # (auto) 4.14 K/uL (1.4-6.5); Neutrophils % (auto) 74.1 %; Platelet Count 125 K/uL (130-400); RDW Coefficient of Variation 13.2 % (11.5-14.5); RDW Standard Deviation 43.4 fL (36.4-46.3); Red Blood Count 4.76 M/uL (4.7-6.1); White Blood Count 5.58 K/uL (4.8-10.8)
[2019-07-06 11:25] LABS: Mean Corpuscular Hgb Conc 32.3 g/dL (32-36)
[2019-07-06 11:36] LABS: BUN Creatinine Ratio 29.3 (10-20); Calcium 8.6 mg/dl (8.5-10.1); Creatinine Clr Calc Pharmacy 61.3 ml/min; Est GFR (African American) 91.6; Potassium 4.3 mmol/L (3.5-5.1)
[2019-07-06] MEDS ORDERED: PNEUMOCOCCAL POLYSACCHARIDES 25 MCG/0.5 ML VIAL/SYR IM ONE (12:00)
[2019-07-06] MEDS ORDERED: PNEUMOCOCCAL ADMINISTRATION CHARGE ONE (12:00)
[2019-07-06] MEDS: CARBIDOPA/LEVODOPA 25/100MG TAB PO SCH ×3 (12:42→21:33)
[2019-07-06] MEDS: CEFAZOLIN 2000MG 2,000 MG/15 ML SYR IV SCH ×2 (16:03→23:37)
[2019-07-06] MEDS: Dutasteride 0.5 MG - ORDER AWAITING ACTION SCH (16:13)
[2019-07-06] MEDS: TAMSULOSIN HCL 0.4 MG CAP PO SCH (19:16)
[2019-07-06] MEDS: CIPROFLOXACIN 500 MG TAB PO SCH (21:09)
[2019-07-07] MEDS: Dutasteride 0.5 MG - ORDER AWAITING ACTION SCH ×3 (00:05→16:05)
[2019-07-07 05:12] LABS: Basophils # (auto) 0.01 K/uL (0-0.2); Basophils % (auto) 0.2 %; Eosinophils # (auto) 0.16 K/uL (0-0.5); Eosinophils % (auto) 2.6 %; Hemoglobin 12.5 g/dL (14.0-18.0); Immature Granulocytes # (auto) 0.02 K/uL (0.00-0.02); Immature Granulocytes % (auto) 0.3 %; Lymphocytes # (auto) 1.21 K/uL (1.2-3.4); Lymphocytes % (auto) 19.9 %; Mean Corpuscular Hemoglobin 28.9 pg (25-34); Mean Corpuscular Hgb Conc 32.1 g/dL (32-36); Mean Corpuscular Volume 90.3 fL (80-100); Mean Platelet Volume 10.2 fL (7.4-10.4); Monocytes # (auto) 0.44 K/uL (0.11-0.59); Monocytes % (auto) 7.2 %; Neutrophils # (auto) 4.23 K/uL (1.4-6.5); Neutrophils % (auto) 69.8 %; Platelet Count 136 K/uL (130-400); RDW Coefficient of Variation 13.4 % (11.5-14.5); RDW Standard Deviation 44.4 fL (36.4-46.3); Red Blood Count 4.32 M/uL (4.7-6.1); White Blood Count 6.07 K/uL (4.8-10.8)
[2019-07-07 05:46] LABS: BUN Creatinine Ratio 30.6 (10-20); Calcium 8.1 mg/dl (8.5-10.1); Creatinine Clr Calc Pharmacy 69.4 ml/min; Est GFR (African American) 99.8; Est GFR (Non-African American) 86.1; Potassium 3.8 mmol/L (3.5-5.1)
[2019-07-07] MEDS: LACTATED RINGER'S 1,000 ML IV SCH ×2 (06:25→16:06)
[2019-07-07] MEDS: CIPROFLOXACIN 500 MG TAB PO SCH ×2 (07:30→22:09)
[2019-07-07] MEDS: TAMSULOSIN HCL 0.4 MG CAP PO SCH (07:31)
[2019-07-07] MEDS: AMLODIPINE BESYLATE 5 MG TAB PO SCH (07:31)
[2019-07-07] MEDS: CARBIDOPA/LEVODOPA 25/100MG TAB PO SCH ×4 (07:31→22:09)
--- NOTE | 2019-07-07 07:51 | Urology Progress Note ---
Date of Service July 07, 2019 Assessment & Plan (1) BPH (benign prostatic hyperplasia): POD#1 s/p TURP and excision of pyocele/simple orchiectomy - doing very well thus far cont CBI on very slow today likely voiding trial tomorrow likely remove susanne drain tomorrow ambulate today continue returning to normal activities Subjective no major issues overnight some sore throat no abdominal pain no issues with CBI scrotum is pain free Physical Exam Physical Exam: very interactive and talkative today abd non-tender CBI on slow - urine clear scrotal incision appropriate - bruising drainage from susanne minimal edema Results & Data Vital Signs (Past 12 Hours) Vital Signs Temp Pulse Resp BP Pulse Ox 07/07/19 03:06 36.8 C 61 16 130/80 94 07/06/19 22:48 36.9 C 58 L 16 135/79 94 07/06/19 21:06 36.6 C 67 18 149/88 H 95 PG Care Time/CCT Total # of Minutes Spent Total Time Spent with Patient: Total time spent is greater than 50% in coordination of care (as documented) at patient's floor/unit and/or counseling patient:
[2019-07-08] MEDS: Dutasteride 0.5 MG - ORDER AWAITING ACTION SCH ×4 (00:44→23:48)
[2019-07-08] MEDS: LACTATED RINGER'S 1,000 ML IV SCH (01:48)
--- NOTE | 2019-07-08 07:46 | Urology Progress Note ---
Date of Service July 08, 2019 Assessment & Plan (1) BPH (benign prostatic hyperplasia): POD #2 s/p TURP and pyocele/orchiectomy excision doing very well d/c susanne drain from scrotum clamped cbi - voiding trial this AM HL IVF if he voids spontaneously - d/c home tomorrow morning Subjective continues to do very well feels that he would like to try to void spontaneously no pain tolerating a diet OOB with assistance Physical Exam Physical Exam: comfortable appearing very interactive abd soft urine clear on very slow cbi scrotum without significant edema some blood d/c from drain some bruising - but all is appropriate Results & Data Vital Signs (Past 12 Hours) Vital Signs Temp Pulse Resp BP Pulse Ox 07/07/19 22:53 37.2 C 60 16 131/73 92 PG Care Time/CCT Total # of Minutes Spent Total Time Spent with Patient: Total time spent is greater than 50% in coordination of care (as documented) at patient's floor/unit and/or counseling patient:
[2019-07-08] MEDS: AMLODIPINE BESYLATE 5 MG TAB PO SCH (08:33)
[2019-07-08] MEDS: CARBIDOPA/LEVODOPA 25/100MG TAB PO SCH ×4 (08:33→21:07)
[2019-07-08] MEDS: CIPROFLOXACIN 500 MG TAB PO SCH ×2 (08:33→21:08)
[2019-07-08] MEDS: TAMSULOSIN HCL 0.4 MG CAP PO SCH (08:33)
[2019-07-09 05:36] LABS: Basophils # (auto) 0.02 K/uL (0-0.2); Basophils % (auto) 0.4 %; Eosinophils # (auto) 0.19 K/uL (0-0.5); Eosinophils % (auto) 3.5 %; Hematocrit (blood only) 38.4 % (42-52); Hemoglobin 12.5 g/dL (14.0-18.0); Immature Granulocytes # (auto) 0.01 K/uL (0.00-0.02); Immature Granulocytes % (auto) 0.2 %; Lymphocytes # (auto) 1.17 K/uL (1.2-3.4); Lymphocytes % (auto) 21.5 %; Mean Corpuscular Hemoglobin 29.3 pg (25-34); Mean Corpuscular Hgb Conc 32.6 g/dL (32-36); Mean Corpuscular Volume 89.9 fL (80-100); Mean Platelet Volume 10.1 fL (7.4-10.4); Monocytes # (auto) 0.41 K/uL (0.11-0.59); Monocytes % (auto) 7.5 %; Neutrophils # (auto) 3.65 K/uL (1.4-6.5); Neutrophils % (auto) 66.9 %; Platelet Count 131 K/uL (130-400); RDW Coefficient of Variation 13.5 % (11.5-14.5); RDW Standard Deviation 44.3 fL (36.4-46.3); Red Blood Count 4.27 M/uL (4.7-6.1); White Blood Count 5.45 K/uL (4.8-10.8)
[2019-07-09 06:06] LABS: BUN Creatinine Ratio 28.4 (10-20); Calcium 8.4 mg/dl (8.5-10.1); Creatinine Clr Calc Pharmacy 73.8 ml/min; Est GFR (African American) 102.3; Est GFR (Non-African American) 88.3
--- NOTE | 2019-07-09 07:52 | Urology Progress Note ---
Date of Service July 09, 2019 Assessment & Plan (1) Acute urinary retention: s/p TURP and pyocele/simple orchiectomy - progressing very well - plan for d/c to [facility] today - will likely have incontinence for several weeks - cont cipro x3 more days Subjective voiding since catheter removal PVR last night of 60 mostly incontinent,but he is emptying no pain walked tolerating a diet labs stable Physical Exam Physical Exam: scrotum healing nicely abd soft urine relatively clear Results & Data Vital Signs (Past 12 Hours) Vital Signs Temp Pulse Resp BP Pulse Ox 07/08/19 23:25 37.0 C 59 L 14 121/74 93 PG Care Time/CCT Total # of Minutes Spent Total Time Spent with Patient: Total time spent is greater than 50% in coordination of care (as documented) at patient's floor/unit and/or counseling patient:
--- NOTE | 2019-07-09 07:53 | Discharge Summary ---
Date of Service July 09, 2019 Admission HPI Per Admitting Provider urinary retention - scrotal swelling with imaging concerns for solid component Principal Diagnosis Pyocele; urinary retention Discharge Data Allergies Allergy/AdvReac Type Severity Reaction Status Date / Time No Known Allergies Allergy Verified 07/06/19 06:14 Procedures Performed Operation Date: 07/06/19 07:15 Actual Procedures p Left Scrotal Exploration, Excision of Pyocele, Simple Orchiectomy(Left) - Taras Myrick MD s Cystoscopy, Transurethral Resection of Prostate(Not Applicable) - Taras Myrick MD Hospital Course (1) Acute urinary retention: s/p TURP and pyocele/simple orchiectomy - progressed appropriately voiding - with incontinence scrotum recovering appropriately Total Time Total Time Spent Total Time Spent (In Minutes): 30 Total Time Includes: Examination of the Patient, Discharge Planning and Medication Reconciliation Discharge Plan Discharge Items Patient Disposition: Home - Home Health Services Reason For Visit: Left Scrotal Mass Discharge Diagnosis: left scrotal mass; urinary retention Activity: Resume your previous activity Lifting: Gradually increase as tolerated Bathing: No limitations Sexual Activity: When tolerated Exercise/Sports: Gradually increase as tolerated Driving/Machine Use: No limitations Non-emergency contact: Urologist Call non-emergency contact if: you have any medication questions, your pain is concerning for you, you have a fever and your temperature is above 101.5 Follow-up/Referrals: Taras Myrick MD [Physician] - [facility] - Diet: Regular Addtl Attending Provider Instructions: It is normal to have some bruising and drainage from the scrotal incision - this will gradually improve over the next 1-2 weeks It is also normal to have incontinence and some blood in your urine - we hope for improvement over the next 2-4 weeks If you are unable to urinate - please have the nursing staff re-insert a catheter Pending Studies at Discharge: No Stand-Alone Forms: My Foruforever, Smoking Cessation Medications and DC Order Prescriptions: Continued ciprofloxacin HCl 500 mg tablet 500 mg PO BID 10 Days Qty: 20 RF: 0 carbidopa-levodopa 25-100 mg tablet 1 tab PO QID RF: 0 acetaminophen 325 mg capsule 650 mg PO Q4H PRN (Reason: Pain) RF: 0 tamsulosin 0.4 mg Capsule 0.4 mg PO QAM RF: 0 oxybutynin chloride 5 mg Tablet 5 mg PO BID RF: 0 nystatin 100,000 unit/gram Cream 1 applic TOPICAL BID PRN (Reason: AFFECTED SKIN AREA) RF: 0 diphenhydramine HCl [Banophen] 25 mg Tablet 25 mg PO Q6H PRN (Reason: Congestion) RF: 0 docusate sodium 100 mg capsule 100 mg PO DAILY PRN (Reason: constipation) RF: 0 carbamide peroxide [Ear Wax Drops] 6.5 % Drops 5 drp OTIC (EAR) Q12H PRN (Reason: ear wax removal) RF: 0 amlodipine 5 mg Tablet 5 mg PO QAM RF: 0 finasteride 5 mg tablet 5 mg PO QAM RF: 0 dutasteride 0.5 mg capsule 0.5 mg PO QAM RF: 0 Discharge Orders: Discharge Order (Routine); Ordered 07/09/19 Ordered By: Taras Myrick Admission Data Admit Date/Time: 07/06/19 10:07 Attending Provider: Taras Myrick Admit Provider: Taras Myrick [facility]
[2019-07-09] MEDS: TAMSULOSIN HCL 0.4 MG CAP PO SCH (08:14)
[2019-07-09] MEDS: CARBIDOPA/LEVODOPA 25/100MG TAB PO SCH (08:14)
[2019-07-09] MEDS: AMLODIPINE BESYLATE 5 MG TAB PO SCH (08:14)
[2019-07-09] MEDS: Dutasteride 0.5 MG - ORDER AWAITING ACTION SCH (08:14)
[2019-07-09] MEDS: CIPROFLOXACIN 500 MG TAB PO SCH (08:14)
== END 2019-07-09 10:15 | disposition home health service (06) | DRG 711 ==
LOC: ASU 05:48 → 3W 10:07

== ENCOUNTER 2019-10-05 10:53 | Observation (INO) ==
[2019-10-05] MEDS ORDERED: SODIUM CHLORIDE 0.9% 1000ML 1,000 ML IV ONE (11:00)
[2019-10-05 11:17] LABS: Basophils # (auto) 0.01 K/uL (0-0.2); Basophils % (auto) 0.1 %; Eosinophils # (auto) 0.04 K/uL (0-0.5); Eosinophils % (auto) 0.6 %; Hematocrit (blood only) 44.7 % (42-52); Hemoglobin 14.4 g/dL (14.0-18.0); Immature Granulocytes # (auto) 0.01 K/uL (0.00-0.02); Immature Granulocytes % (auto) 0.1 %; Lymphocytes # (auto) 1.24 K/uL (1.2-3.4); Lymphocytes % (auto) 18.2 %; Mean Corpuscular Hemoglobin 28.5 pg (25-34); Mean Corpuscular Hgb Conc 32.2 g/dL (32-36); Mean Corpuscular Volume 88.3 fL (80-100); Mean Platelet Volume 9.8 fL (7.4-10.4); Monocytes # (auto) 0.32 K/uL (0.11-0.59); Monocytes % (auto) 4.7 %; Neutrophils % (auto) 76.3 %; Platelet Count 171 K/uL (130-400); RDW Coefficient of Variation 14.8 % (11.5-14.5); RDW Standard Deviation 47.4 fL (36.4-46.3); Red Blood Count 5.06 M/uL (4.7-6.1); White Blood Count 6.82 K/uL (4.8-10.8)
--- NOTE | 2019-10-05 11:26 | XRay Report ---
XR chest 1V portable CLINICAL HISTORY: abd pain pain COMPARISON STUDY: 05/09/2019 FINDINGS: Stable fixed hiatal hernia. Lungs are clear. Diaphragms are smooth. No focal infiltrate. IMPRESSION: Fixed hiatal hernia. No acute process. ACT 112: Negative or not required by law. The above report was generated using voice recognition software. It may contain grammatical, syntax or spelling errors. Electronically signed by: Desean Cooper M.D. 10/05/2019 11:25 AM
[2019-10-05 11:32] LABS: Partial Thromboplastin Ratio 1.1; Partial Thromboplastin Time 29.3 Seconds (21.0-31.0); Prothrombin Time 10.6 Seconds (9.0-12.0)
[2019-10-05 11:35] LABS: Alanine Aminotransferase 6 U/L (12-78); Albumin Level 3.4 gm/dl (3.4-5.0); Aspartate Aminotransferase 7 U/L (15-37); Blood Urea Nitrogen 26 mg/dl (7-18); Calcium 8.8 mg/dl (8.5-10.1); Carbon Dioxide 30 mmol/L (21-32); Chloride 106 mmol/L (98-107); Creatinine Clr Calc Pharmacy 65.8 ml/min; Est GFR (African American) 96.7; Est GFR (Non-African American) 83.4; Glucose 98 mg/dl (70-99); Lipase 142 U/L (73-393); Potassium 4.2 mmol/L (3.5-5.1); Sodium 139 mmol/L (136-145)
[2019-10-05 11:39] LABS: Alkaline Phosphatase 60 U/L (45-117); Bilirubin,Total 1.1 mg/dl (0.2-1); Globulin 3.4 gm/dl (2.5-4.0); Total Protein 6.8 gm/dl (6.4-8.2); Troponin I < 0.015 ng/ml (0-0.045)
[2019-10-05] MEDS ORDERED: cefOXitin 2,000 MG/60 ML BAG IV STA (12:02)
--- NOTE | 2019-10-05 12:02 | Surgery Consultation ---
Date of Consultation October 05, 2019 Assessment & Plan (1) Acute appendicitis: pt is a 74 year-old male who had CT scan diagnosis- acute appendicitis, IMP: acute appendicitis, or appendix tumor plan, I called pt's SERVANDO Hwang([phone]), recommend to do laparoscopic appendectomy possible open, D/W benefits, risks and alternatives of the surgery, the risk s- infection, bleeding, abscess, [place], Eri understood, he agrees with the surgery, he gave consent on the phone, I answered all questions, cefoxitin 2 gm iv now, History of Present Illness History of Present Illness CC: lower abdominal pain HPI: pt is a 74 year-old male who had CT scan done today for lower abdominal pain, CT scan diagnosis- enlarge appendix 1.3cm, appendicitis, pt's PMH - parkinsons disease, bradycardia, syncope, acute renal failure, tremor, but pt he knows he is in hospital now, and his name, pt denies abdominal pain now, no nausea, no vomiting, Allergies Allergy/AdvReac Type Severity Reaction Status Date / Time No Known Allergies Allergy Verified 10/05/19 11:54 Home Medications Home Medications Medication Instructions Recorded Confirmed Type diphenhydramine HCl [Banophen] 25 mg PO Q6H PRN 12/04/18 09/21/19 History nystatin 1 applic TOPICAL BID PRN 12/04/18 09/21/19 History carbamide peroxide [Ear Wax Drops] 5 drp OTIC (EAR) Q12H PRN 02/13/19 09/21/19 History docusate sodium 100 mg PO DAILY PRN 02/13/19 09/21/19 History acetaminophen 325 mg capsule 650 mg PO Q4H PRN cap 06/02/19 09/21/19 History carbidopa 25 mg-levodopa 100 mg 1 tab PO QID 06/15/19 09/21/19 History tablet amlodipine 5 mg PO QAM 06/23/19 09/21/19 History Patient History Medical History (Updated 10/05/19 @ 11:57 by Aminta Hassan MD) Acute renal failure hx 10/2018 Bilateral hydronephrosis BPH (benign prostatic hyperplasia) Bradycardia Ulrich catheter in place MVP (mitral valve prolapse) Moderate prolapse of the posterior mitral valve leaflet per 04/2019 ECHO Parkinson disease with cognitive impairment Tremor Surgical History (Updated 09/21/19 @ 11:23 by Ruth Aleman RN) History of prostate surgery History of testicular surgery No significant past surgical history Social History Preferred Language: Armenian Communication Ability: Effective 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: No Beliefs That Will Affect Care: None marital status: Single Current Living Situation: Personal Care Facility Current Living Situation Comment: [facility] current occupational status: retired Feels Safe at Home: Yes Smoking Status: Never smoker Second Hand Exposure: No ; Hx Alcohol Use: No Hx Substance Use: No Review of Systems Review of Systems: All systems reviewed & are unremarkable except as noted in HPI & below Constitutional: as per Subjective / HPI Eyes: as per Subjective / HPI Ear, Nose, Mouth, Throat: as per Subjective / HPI Respiratory: as per Subjective / HPI Cardiovascular: Additional Comments: bradycardia Gastrointestinal: as per Subjective / HPI Genitourinary: + as per Subjective / HPI Musculoskeletal: as per Subjective / HPI Integumentary: as per Subjective / HPI Neurologic: as per Subjective / HPI Psychiatric: as per Subjective / HPI Endocrine: as per Subjective / HPI Hematologic / Lymphatic: as per Subjective / HPI Physical Exam Constitutional: WD/WN, vitals as above well developed and well nourished Eyes: PERRL, conjunctivae normal, anicteric sclerae ENMT: external ear and nose normal, oropharynx normal Neck: trachea midline, no thyromegaly Respiratory: normal respiratory effort, lungs clear to auscultation normal respiratory effort Cardiovascular: RRR, no murmur, no edema Rate/Rhythm: regular rate and regular rhythm Heart Sounds: normal S1 and normal S2 Gastrointestinal (Abdomen): normal bowel sounds, soft, nontender, no hepatosplenomegaly Percussion/Palpation: abdomen soft mild tenderness At RLQ, no rebound pain, no distend, Musculoskeletal: no cyanosis or clubbing, extremities motor strength 5/5 Skin: no rashes, warm and dry Neurologic: patellar DTR's 2+ bilat, sensation intact Psychiatric: Orientation: alert Results & Data Vital Signs (Past 12 Hours) Vital Signs Temp Pulse Resp BP Pulse Ox 10/05/19 11:05 36.9 C 70 22 171/90 H 96 Laboratory Results Abnormal lab results 10/05/19 10/05/19 Range/Units 11:05 11:05 RDW Std Deviation 47.4 H (36.4-46.3) fL RDW Coeff of Kayley 14.8 H (11.5-14.5) % BUN 26 H (7-18) mg/dl BUN/Creatinine Ratio 30.0 H (10-20) Total Bilirubin 1.1 H (0.2-1) mg/dl AST 7 L (15-37) U/L ALT 6 L (12-78) U/L
--- NOTE | 2019-10-05 12:02 | History & Physical Bridge Note ---
Date of Service October 05, 2019 History & Physical Bridge Note I have examined the patient, reviewed the History & Physical and in the interval since the performance of the History & Physical I have noted the following changes of clinical significance: no changes noted
[2019-10-05 12:19] LABS: Appearance Urine Turbid (Clear); Bacteria Urine Automated 3+ (Negative); Bilirubin Urine Negative (Negative); Blood Urine Trace (Negative); Color Urine Yellow; Glucose Urine UA Negative (Negative); Ketones Urine Negative (Negative); Leukocyte Esterase Urine 3+ (Negative); Nitrite Urine Positive (Negative); Protein Urine 1+ (Negative); Specific Gravity Urine 1.019 (1.000-1.030); Urobilinogen Urine Negative (Negative); WBC Urine Automated >30 /hpf (0-5)
--- NOTE | 2019-10-05 13:14 | Anesthesiology Consultation ---
Date of Service October 05, 2019 Assessment & Plan (1) Encounter for pre-operative examination: Chart Review Chart Review: Acceptable Risk for Surgery and Patient NOT seen in Pre Admission Testing Consults Requested none History Surgery Operation Date: 10/05/19 13:10 Proposed Procedures p Laparoscopic Appendectomy - Aminta Hassan MD Height/Weight Height: 5 ft 7 in Weight: 65.1 kg Allergies Allergy/AdvReac Type Severity Reaction Status Date / Time No Known Allergies Allergy Verified 10/05/19 11:54 Medications Home Medications Medication Instructions Recorded Confirmed Last Taken diphenhydramine HCl [Banophen] 25 mg PO Q6H PRN 12/04/18 10/05/19 Unknown nystatin 1 applic TOPICAL BID PRN 12/04/18 10/05/19 Unknown carbamide peroxide [Ear Wax Drops] 5 drp OTIC (EAR) Q12H PRN 02/13/19 10/05/19 Unknown docusate sodium 100 mg PO DAILY PRN 02/13/19 10/05/19 Unknown acetaminophen 325 mg capsule 650 mg PO Q4H PRN cap 06/02/19 10/05/19 Unknown carbidopa 25 mg-levodopa 100 mg 1 tab PO QID 06/15/19 10/05/19 07/06/19 tablet amlodipine 5 mg PO QAM 06/23/19 10/05/19 07/05/19 NPO Date Last Intake of Fluids: 10/05/19 Time Last Intake of Fluids: 09:30 Date Last Intake of Solids: 10/05/19 Time Last Intake of Solids: 09:30 Last Intake of Solids Comment: scrambled Past Medical History Medical History Acute renal failure hx 10/2018 Bilateral hydronephrosis BPH (benign prostatic hyperplasia) Bradycardia Ulrich catheter in place MVP (mitral valve prolapse) Moderate prolapse of the posterior mitral valve leaflet per 04/2019 ECHO Parkinson disease with cognitive impairment Tremor Past Family History Family History Father No pertinent family history Mother No pertinent family history Other Brain tumor Past Surgical History Surgical History (Updated 10/05/19 @ 13:13 by Michael Nunez MD) History of prostate surgery History of testicular surgery 06/2019. General anesthesia. LMA #4 igel Social History Smoking Status: Never smoker Hx Alcohol Use: No Hx Substance Use: No substance use type: does not use Physical Exam Vital Signs Last Vital Signs Temp 36.8 C 10/05/19 12:54 Pulse 61 10/05/19 12:54 Resp 18 10/05/19 12:54 BP 179/95 H 10/05/19 12:54 Pulse Ox 96 10/05/19 12:54 Testing Laboratory Results 10/05/19 11:05 10/05/19 11:05 PT 10.6 Seconds (9.0-12.0) 10/05/19 11:05 INR 1.0 (0.9-1.1) 10/05/19 11:05 APTT 29.3 Seconds (21.0-31.0) 10/05/19 11:05 Urine Color Yellow 10/05/19 12:06 Urine Appearance Turbid (Clear) A 10/05/19 12:06 Urine pH 7.0 (4.5-7.5) 10/05/19 12:06 Ur Specific [place] 1.019 (1.000-1.030) 10/05/19 12:06 Urine Protein 1+ (Negative) H 10/05/19 12:06 Urine Glucose (UA) Negative (Negative) 10/05/19 12:06 Urine Ketones Negative (Negative) 10/05/19 12:06 Urine Nitrite Positive (Negative) A 10/05/19 12:06 Ur Leukocyte Esterase 3+ (Negative) H 10/05/19 12:06 Urine WBC (Auto) >30 /hpf (0-5) H 10/05/19 12:06 Urine RBC (Auto) 5-10 /hpf (0-4) H 10/05/19 12:06 U Hyaline Cast (Auto) 1-5 /lpf (0-5) 10/05/19 12:06 U Epithel Cells (Auto) 5-10 /lpf (0-5) H 10/05/19 12:06 Urine Bacteria (Auto) 3+ (Negative) H 10/05/19 12:06 Electrocardiogram Date: 10/05/19 Findings: + SB @ (58) Sinus bradycardia Left axis deviation Possible Anterior infarct , age undetermined Abnormal ECG When compared with ECG of 09-MAY-2019 21:12, No significant change was found Chest X-Ray Date: 10/05/19 XR chest 1V portable CLINICAL HISTORY: abd pain pain COMPARISON STUDY: 05/09/2019 FINDINGS: Stable fixed hiatal hernia. Lungs are clear. Diaphragms are smooth. No focal infiltrate. IMPRESSION: Fixed hiatal hernia. No acute process.
[2019-10-05] MEDS ORDERED: ATROPINE SULFATE 0.1 MG/ML 10ML SYR IV PRN (13:39)
[2019-10-05] MEDS ORDERED: fentaNYL citrate 100 MCG/2 ML VIAL IV PRN (13:39)
[2019-10-05] MEDS ORDERED: ePHEDrine sulfate 50 MG/ML AMP IV PRN (13:39)
[2019-10-05] MEDS ORDERED: ONDANSETRON INJ 2 MG/ML 2 ML VIAL IV PRN ×2 (13:39→15:20)
[2019-10-05] MEDS ORDERED: BACITRACIN OINT 15 GM TUBE ONE (13:44)
[2019-10-05] MEDS ORDERED: BUPIVACAINE 0.5 % 5 MG/1 ML MPF 30ML VIAL ONE (13:44)
[2019-10-05] MEDS ORDERED: LIDOCAINE HCL 1% 20 ML VIAL ONE (13:44)
[2019-10-05] MEDS ORDERED: fentaNYL citrate 100 MCG/2 ML VIAL ONE (14:04)
[2019-10-05] MEDS ORDERED: ePHEDrine sulfate 50 MG/ML AMP ONE (14:20)
[2019-10-05] MEDS ORDERED: SODIUM CHLORIDE 0.9% INJ 10 ML VIAL ONE (14:20)
[2019-10-05] MEDS ORDERED: LIDOCAINE HCL 2% 2 ML VIAL/AMP(20MG/ML) INFIL ONE (15:07)
[2019-10-05] MEDS ORDERED: NEOSTIGMINE METHYLSULFATE 5 MG/5 ML SYR ONE (15:07)
[2019-10-05] MEDS ORDERED: PROPOFOL IV EMULSION 10 MG/ML 20 ML VIAL IV ONE (15:07)
[2019-10-05] MEDS ORDERED: ONDANSETRON INJ 2 MG/ML 2 ML VIAL ONE (15:07)
[2019-10-05] MEDS ORDERED: GLYCOPYRROLATE 0.2 MG/ML VIAL ONE (15:07)
[2019-10-05] MEDS ORDERED: ROCURONIUM BROMIDE 10 MG/ML 5 ML VIAL ONE (15:07)
--- NOTE | 2019-10-05 15:13 | Post Operative Brief Note ---
Immediate Post Op Note v1 Date of Surgery October 05, 2019 Pre & Post Diagnosis Operation Date: 10/05/19 13:10 pre-op diagnosis: acute appendicitis post-op diagnosis: acute appendicitis I identified the patient and participated in the time-out.: Yes Procedure Operation Date: 10/05/19 13:10 laparoscopic appendectomy Surgeon Aminta Hassan MD Gasoline Truck Operator RANDOLPH Alvarez Estimated Blood Loss 5 Findings Consistent with Post-Op Diagnosis Fluids 700ml Specimens appendix Drains Ulrich Catheter Anesthesia Type General Complications none Disposition Accompanied Patient To Recovery: Yes Disposition: Recovery Room Overlapping Procedure I was immediately available: during the entire case.
[2019-10-05] MEDS ORDERED: CARBAMIDE PEROXIDE 6.5% 15 ML BTL OT PRN (15:28)
[2019-10-05] MEDS ORDERED: ACETAMINOPHEN 325 MG TAB PO PRN (15:28)
[2019-10-05] MEDS ORDERED: NYSTATIN CR 15 GM TUBE EXT PRN (15:28)
[2019-10-05] MEDS ORDERED: OXYCODONE/ACETAMINOPHEN 5mg/325mg TAB PO PRN (15:28)
[2019-10-05] MEDS ORDERED: DOCUSATE SODIUM 100 MG CAP PO PRN (15:28)
[2019-10-05] MEDS ORDERED: HYDROmorphone INJ 0.5 MG/0.5 ML SYR IV PRN (15:28)
--- NOTE | 2019-10-05 16:34 | Anesthesiology Progress Note ---
Date of Service October 05, 2019 Anesthesia Post Procedure Vital Signs Vital Signs: Temp Pulse Pulse Resp BP BP BP 10/05/19 16:15 76 16 159/98 H 10/05/19 16:05 36.9 C 74 15 152/94 H 10/05/19 15:55 65 15 167/96 H 10/05/19 15:45 62 16 175/100 H 10/05/19 15:35 36.0 C L 65 16 185/101 H 10/05/19 12:54 36.8 C 61 18 179/95 H 10/05/19 12:31 54 L 15 163/90 H 10/05/19 12:06 54 L 20 150/83 H 10/05/19 11:38 61 15 150/83 H 10/05/19 11:05 36.9 C 70 22 171/90 H Pulse Ox 10/05/19 16:15 94 10/05/19 16:05 95 10/05/19 15:55 96 10/05/19 15:45 99 10/05/19 15:35 98 10/05/19 12:54 96 10/05/19 12:31 97 10/05/19 12:06 92 10/05/19 11:38 96 10/05/19 11:05 96 Transfer of Care Handoff Completed per policy Notes Mental Status: alert / awake / arousable and participated in evaluation Patient Amnestic to Procedure: Yes Nausea / Vomiting: adequately controlled Pain: adequately controlled Airway Patency, RR, SpO2: stable & adequate BP & HR: stable & adequate Hydration State: stable & adequate Anesthetic Complications: no major complications apparent and Pt Satisfied with anesthetic care
--- NOTE | 2019-10-05 16:55 | Operative Report ---
DATE OF OPERATION: 10/05/2019 PREOPERATIVE DIAGNOSIS: Acute appendicitis. POSTOPERATIVE DIAGNOSIS: Acute appendicitis. OPERATION: Laparoscopic appendectomy. SURGEON: Aminat Hassan MD. PLATER HELPER: Talisha Clarke PA-C. ANESTHESIA: General. ESTIMATED BLOOD LOSS: About 5 mL. FINDINGS: Acute appendicitis. COMPLICATIONS: None. INDICATIONS FOR THE PROCEDURE: This is a 74-year-old gentleman who had lower abdominal pain. The patient had a CT scan diagnosis of acute appendicitis. I recommended to do the laparoscopic appendectomy, possible open. I did talk to the patient's caregiver, Nilsa Hwang, who is the power of deputy county attorney about the benefit, risk, and alternate procedure. I indicated the risks may include but not limited to such as bleeding, infection, injury to bowel, abscess, myocardial infarction and she understands, gave consent on the phone, I answered all questions. DETAILS OF PROCEDURE: We brought the patient to the OR, put the patient in the supine position. The patient received SCD on bilateral legs to prevent DVT. Also, patient received 2 g of cefoxitin IV for prophylactic antibiotic. The patient received general anesthesia without difficulty. Also, patient received Ulrich catheter insertion. The abdomen was prepped and draped in routine sterile fashion. After timeout, we made a small incision just above the umbilicus. Opened fascia and opened peritoneum under direct vision, put a Glory trocar in, connected to CO2 to create pneumoperitoneum, flow rate at 6 liters per minute, pressure not more than 14 mmHg. Once we got a nice pneumoperitoneum, we put a camera in, looked around the abdomen. It shows normal finding on the small bowel, large bowel. Appendix was enlarged, diameter size about 1.3 cm - confirmed the diagnosis of acute appendicitis. Then, we put another two 5 mm trocars on the left lower quadrant area. Once all trocars in, we used the harmonic to take down the appendiceal and then we used a 45 mm Endo-GEORGINA staple for transection on the base of the appendix. Rechecked the staple line, intact, no leak, no active bleeding. Then we removed the appendix through the catch bag and then we rechecked the abdomen, no active bleeding and then we removed all trocars under direct vision. No active bleeding from the trocar sites. Pneumoperitoneum was released. I closed the umbilical incision, fascial layer by using 0 Vicryl [id number] x2, closed subcutaneous layer by using 2-0 Vicryl interrupted, closed skin by using 4-0 Vicryl continuous running, closed another two 5 mm trocar site skin only by using 4-0 Vicryl. Then, we put a dressing on. The patient tolerated the procedure well. All instrument, needle and sponge count were correct x2 at the end of the case. The patient was transferred to recovery room in stable condition. After the procedure, I did talk to the patient and family member about the OR finding and the procedure we did, they understand. The specimen was sent to pathology. I attest to the content of the Intraoperative Record and any orders documented therein. Any exception s are noted below.
[2019-10-05] MEDS: CARBIDOPA/LEVODOPA 25/100MG TAB PO SCH ×2 (18:33→20:10)
[2019-10-05] MEDS: LACTATED RINGER'S 1,000 ML IV SCH (18:35)
--- NOTE | 2019-10-05 18:47 | Emergency Department Note ---
Entered by Edin Wasserman acting as a scribe for Syed Cerda DO History of Present Illness General Chief complaint: Abdominal Pain Time Seen by Provider: 10/05/19 10:55 Source: patient and EMS Limitations: other (dementia) History of Present Illness Onset (ago): day(s) (this morning) Location: abdomen Quality: + other (possible appendicitis) Associated symptoms: + other (Negative for abdominal pain, nausea, and vomiting.) The patient is a 74 year old male who presents to the emergency department with complaints of possible appendicitis beginning this morning. Per EMS, the patient is from [facility]. He states that the patient had a CT done at [facility] this morning because he has a hernia. He notes that the patients CT revealed that he likely had appendicitis. The patient denies any abdominal pain, nausea, and vomiting. HPI limited secondary to dementia. Home Medications Home Medications Medication Instructions Recorded Confirmed Type diphenhydramine HCl [Banophen] 25 mg PO Q6H PRN 12/04/18 10/05/19 History nystatin 1 applic TOPICAL BID PRN 12/04/18 10/05/19 History carbamide peroxide [Ear Wax Drops] 5 drp OTIC (EAR) Q12H PRN 02/13/19 10/05/19 History docusate sodium 100 mg PO DAILY PRN 02/13/19 10/05/19 History acetaminophen 325 mg capsule 650 mg PO Q4H PRN cap 06/02/19 10/05/19 History carbidopa 25 mg-levodopa 100 mg 1 tab PO QID 06/15/19 10/05/19 History tablet amlodipine 5 mg PO QAM 06/23/19 10/05/19 History Allergies Allergy/AdvReac Type Severity Reaction Status Date / Time No Known Allergies Allergy Verified 10/05/19 11:54 Past Med/Surg History Medical History (Updated 10/05/19 @ 14:27 by Edin Wasserman) Acute renal failure hx 10/2018 Bilateral hydronephrosis BPH (benign prostatic hyperplasia) Bradycardia Ulrich catheter in place MVP (mitral valve prolapse) Moderate prolapse of the posterior mitral valve leaflet per 04/2019 ECHO Parkinson disease with cognitive impairment Tremor Surgical History (Updated 10/05/19 @ 13:13 by Michael Nunez MD) History of prostate surgery History of testicular surgery 06/2019. General anesthesia. LMA #4 igel Family History Father No pertinent family history Mother No pertinent family history Other Brain tumor Social History Preferred Language: [place] Communication Ability: Effective Consultant Electronics Required: No Beliefs That Will Affect Care: None marital status: Single Current Living Situation: Personal Care Facility Current Living Situation Comment: [facility] current occupational status: retired Other Information That Helps Us Care for You: No Feels Safe at Home: Yes Smoking Status: Never smoker Second Hand Exposure: No ; Hx Alcohol Use: No Hx Substance Use: No Review of Systems ROS limited secondary to dementia. Physical Exam Vital Signs Vital Signs - 24 hr 10/05/19 11:05 10/05/19 11:38 10/05/19 12:06 Temperature 36.9 C Temperature Source Oral Pulse Rate 70 61 54 L Pulse Rate [Apical] Pulse Rate from SpO2 Sensor 59 L 54 L Pulse Rhythm [Apical] Pulse Strength [Apical] Respiratory Rate 22 15 20 Blood Pressure 171/90 H 150/83 H 150/83 H Blood Pressure [Left Arm] Blood Pressure Mean 117 90 90 Blood Pressure Mean [Left Arm] Blood Pressure Position [Left Arm] Pulse Oximetry 96 96 92 Oxygen Delivery Method Room Air Sepsis Recent Fever Within 48 Hours No Sepsis New/Unexplained Change in Mental Status No Sepsis Action Taken by Nursing No Action Required 10/05/19 12:31 10/05/19 12:54 Temperature 36.8 C Temperature Source Oral Pulse Rate 54 L Pulse Rate [Apical] 61 Pulse Rate from SpO2 Sensor 55 L Pulse Rhythm [Apical] Regular Pulse Strength [Apical] Normal Respiratory Rate 15 18 Blood Pressure 163/90 H Blood Pressure [Left Arm] 179/95 H Blood Pressure Mean 108 Blood Pressure Mean [Left Arm] 123 Blood Pressure Position [Left Arm] Lying Pulse Oximetry 97 96 Oxygen Delivery Method Room Air Sepsis Recent Fever Within 48 Hours Sepsis New/Unexplained Change in Mental Status Sepsis Action Taken by Nursing GENERAL: Patient is awake, alert, and in no acute distress. Patient is resting comfortably and showing no signs of anxiety EYES: The conjunctivae are clear. The pupils are round and reactive. EARS, NOSE, MOUTH AND THROAT: The nose is without any evidence of any deformity. Mucous membranes are moist. Tongue is midline NECK: The neck is nontender and supple. RESPIRATORY: Normal respiratory effort is noted. There is no evidence of wheezing rhonchi or rales to auscultation. CARDIOVASCULAR: Regular rate and rhythm noted. There no murmurs rubs or gallops normal S1 normal S2 GASTROINTESTINAL: Bowel sounds are present in all quadrants. Mildly distended but soft, no tenderness, no guarding and rigidity noted. MUSCULOSKELETAL/EXTREMITIES: There is no evidence of gross deformity. Full range of motion is noted in the hips and shoulders. SKIN: There is no obvious evidence of any rash. There are no petechiae, pallor or cyanosis noted. NEUROLOGIC: Patient is awake, alert, and oriented to person, place, and situation. Course Course 1057: The patient was evaluated in room B2. A complete history and physical exam was performed. 1109: I discussed the patient's case with Jody Lozada. He will come down to see the patient. 1253: Upon reevaluation, the patient is stable. I discussed the findings and the treatment plan with the patient. He expresses agreement and understanding. The patient was taken to the OR. Consultations Consultation #1: I discussed the patient's case with Jody Lozada. He will come down to see the patient. Time: 11:09 Administered Medications Carbidopa/Levodopa (Sinemet 25/100 Mg) 1 tab PO QID [facility] Stop: 11/04/19 16:59 Last Admin: 10/05/19 18:33 Dose: 1 tab Documented by: [id number] Lactated Ringer's (Lr) 1,000 mls @ 80 mls/hr IV .[id number] [facility] Stop: 11/04/19 17:14 Last Admin: 10/05/19 18:35 Dose: 80 mls/hr Documented by: [id number] Cefoxitin Sodium 1,000 mg/ (Dextrose) 60 mls @ 100 mls/hr IV Q6H [facility] Stop: 10/07/19 17:59 Last Admin: 10/05/19 18:36 Dose: 100 mls/hr Documented by: [id number] Discontinued Medications Bacitracin (Bacitracin) Confirm Administered Dose 45 appln .ROUTE .[facility] Stop: 10/05/19 13:45 Last Admin: 10/05/19 15:04 Dose: 45 appln Documented by: [id number] Bupivacaine HCl (Marcaine 0.5% Mpf) Confirm Administered Dose 30 ml .ROUTE .[facility]-MED ONE Stop: 10/05/19 13:45 Last Admin: 10/05/19 15:05 Dose: 20 ml Documented by: [id number] Sodium Chloride (Nss 1000ml) 1,000 mls @ 999 mls/hr IV .Q1H1M ONE Stop: 10/05/19 12:00 Last Infusion: 10/05/19 17:18 Dose: 0 mls/hr Documented by: [id number] Admin: 10/05/19 11:09 Dose: 999 mls/hr Documented by: [id number] Cefoxitin Sodium (Mefoxin) 2,000 mg in 60 mls @ 100 mls/hr IV NOW STA Stop: 10/05/19 12:37 Last Infusion: 10/05/19 17:18 Dose: 0 mls/hr Documented by: [id number] Admin: 10/05/19 12:36 Dose: 100 mls/hr Documented by: [id number] Lidocaine HCl (Xylocaine 1% (Local)) Confirm Administered Dose 20 ml .ROUTE .[facility]-MED ONE Stop: 10/05/19 13:45 Last Admin: 10/05/19 15:05 Dose: 20 ml Documented by: [id number] Medical Decision Making Differential Diagnosis Differential diagnoses includes but is not limited to gastritis, peptic ulcer disease, GERD, gallbladder disease, pancreatitis, small bowel obstruction, acute coronary syndrome, pericarditis, ischemic bowel, irritable bowel disease, irritable bowel syndrome, appendicitis, diverticulitis, malignancy, hernia, urinary tract infection, torsion, perforation, trauma, infectious. Medical Records Attestation: I reviewed the patient's medical records. Home Medications Current Medication List: was personally reviewed by oh Laboratory Data Attestation: I reviewed the patient's lab results. Result diagrams: 10/05/19 11:05 10/05/19 11:05 Lab Results 10/05/19 10/05/19 10/05/19 Range/Units 11:05 11:05 11:05 WBC 6.82 (4.8-10.8) K/uL RBC 5.06 (4.7-6.1) M/uL Hgb 14.4 (14.0-18.0) g/dL Hct 44.7 (42-52) % MCV 88.3 (80-100) fL MCH 28.5 (25-34) pg MCHC 32.2 (32-36) g/dL RDW Std Deviation 47.4 H (36.4-46.3) fL RDW Coeff of Kayley 14.8 H (11.5-14.5) % Plt Count 171 (130-400) K/uL MPV 9.8 (7.4-10.4) fL Immature Gran % (Auto) 0.1 % Neut % (Auto) 76.3 % Lymph % (Auto) 18.2 % Mitchell % (Auto) 4.7 % Eos % (Auto) 0.6 % Baso % (Auto) 0.1 % Immature Gran # (Auto) 0.01 (0.00-0.02) K/uL Neut # (Auto) 5.20 (1.4-6.5) K/uL Lymph # (Auto) 1.24 (1.2-3.4) K/uL Mitchell # (Auto) 0.32 (0.11-0.59) K/uL Eos # (Auto) 0.04 (0-0.5) K/uL Baso # (Auto) 0.01 (0-0.2) K/uL PT 10.6 (9.0-12.0) Seconds INR 1.0 (0.9-1.1) APTT 29.3 (21.0-31.0) Seconds PTT Ratio 1.1 Sodium 139 (136-145) mmol/L Potassium 4.2 (3.5-5.1) mmol/L Chloride 106 (98-107) mmol/L Carbon Dioxide 30 (21-32) mmol/L Anion Gap 3.0 (3-11) BUN 26 H (7-18) mg/dl Creatinine 0.88 (0.6-1.4) mg/dl Est Cr Clr Drug Dosing 65.8 ml/min Est GFR ( Amer) 96.7 Est GFR (Non-Af Amer) 83.4 BUN/Creatinine Ratio 30.0 H (10-20) Glucose 98 (70-99) mg/dl Calcium 8.8 (8.5-10.1) mg/dl Total Bilirubin 1.1 H (0.2-1) mg/dl AST 7 L (15-37) U/L ALT 6 L (12-78) U/L Alkaline Phosphatase 60 (45-117) U/L Troponin I < 0.015 (0-0.045) ng/ml Total Protein 6.8 (6.4-8.2) gm/dl Albumin 3.4 (3.4-5.0) gm/dl Globulin 3.4 (2.5-4.0) gm/dl Albumin/Globulin Ratio 1.0 (0.9-2) Lipase 142 (73-393) U/L Urine Color Urine Appearance (Clear) Urine pH (4.5-7.5) Ur Specific [place] (1.000-1.030) Urine Protein (Negative) Urine Glucose (UA) (Negative) Urine Ketones (Negative) Urine Blood (Negative) Urine Nitrite (Negative) Urine Bilirubin (Negative) Urine Urobilinogen (Negative) Ur Leukocyte Esterase (Negative) Urine WBC (Auto) (0-5) /hpf Urine RBC (Auto) (0-4) /hpf U Hyaline Cast (Auto) (0-5) /lpf U Epithel Cells (Auto) (0-5) /lpf Urine Bacteria (Auto) (Negative) 10/05/19 Range/Units 12:06 WBC (4.8-10.8) K/uL RBC (4.7-6.1) M/uL Hgb (14.0-18.0) g/dL Hct (42-52) % MCV (80-100) fL MCH (25-34) pg MCHC (32-36) g/dL RDW Std Deviation (36.4-46.3) fL RDW Coeff of Kayley (11.5-14.5) % Plt Count (130-400) K/uL MPV (7.4-10.4) fL Immature Gran % (Auto) % Neut % (Auto) % Lymph % (Auto) % Mitchell % (Auto) % Eos % (Auto) % Baso % (Auto) % Immature Gran # (Auto) (0.00-0.02) K/uL Neut # (Auto) (1.4-6.5) K/uL Lymph # (Auto) (1.2-3.4) K/uL Mitchell # (Auto) (0.11-0.59) K/uL Eos # (Auto) (0-0.5) K/uL Baso # (Auto) (0-0.2) K/uL PT (9.0-12.0) Seconds INR (0.9-1.1) APTT (21.0-31.0) Seconds PTT Ratio Sodium (136-145) mmol/L Potassium (3.5-5.1) mmol/L Chloride (98-107) mmol/L Carbon Dioxide (21-32) mmol/L Anion Gap (3-11) BUN (7-18) mg/dl Creatinine (0.6-1.4) mg/dl Est Cr Clr Drug Dosing ml/min Est GFR ( Amer) Est GFR (Non-Af Amer) BUN/Creatinine Ratio (10-20) Glucose (70-99) mg/dl Calcium (8.5-10.1) mg/dl Total Bilirubin (0.2-1) mg/dl AST (15-37) U/L ALT (12-78) U/L Alkaline Phosphatase (45-117) U/L Troponin I (0-0.045) ng/ml Total Protein (6.4-8.2) gm/dl Albumin (3.4-5.0) gm/dl Globulin (2.5-4.0) gm/dl Albumin/Globulin Ratio (0.9-2) Lipase (73-393) U/L Urine Color Yellow Urine Appearance Turbid A (Clear) Urine pH 7.0 (4.5-7.5) Ur Specific [place] 1.019 (1.000-1.030) Urine Protein 1+ H (Negative) Urine Glucose (UA) Negative (Negative) Urine Ketones Negative (Negative) Urine Blood Trace H (Negative) Urine Nitrite Positive A (Negative) Urine Bilirubin Negative (Negative) Urine Urobilinogen Negative (Negative) Ur Leukocyte Esterase 3+ H (Negative) Urine WBC (Auto) >30 H (0-5) /hpf Urine RBC (Auto) 5-10 H (0-4) /hpf U Hyaline Cast (Auto) 1-5 (0-5) /lpf U Epithel Cells (Auto) 5-10 H (0-5) /lpf Urine Bacteria (Auto) 3+ H (Negative) Imaging Data Radiologist's Impression: Radiology results as stated below per my review and the radiologist's interpretation: XR chest 1V portable FINDINGS: Stable fixed hiatal hernia. Lungs are clear. Diaphragms are smooth. No focal infiltrate. IMPRESSION: Fixed hiatal hernia. No acute process. ACT 112: Negative or not required by law. The above report was generated using voice recognition software. It may contain grammatical, syntax or spelling errors. Electronically signed by: Desean Cooper M.D. 10/05/2019 11:25 AM ECG Data Attestation: I personally reviewed and interpreted this ECG as follows: Indication: + abdominal pain Rate (beats per minute): 58 Rhythm: + sinus bradycardia ECG Findings: no PACs and no PVCs Comparison ECG Date: from (05/09/2019) Change: no significant change Additional Comments: No acute ST segments. Blood Pressure Blood Pressure Findings: Elevated blood pressure Blood Pressure Disposition: further management by hospitalist KYLE Colon The patient is a 74-year-old male who presented to the emergency department for an evaluation of lower abdominal pain. The patient had an outpatient CT ordered which showed possible appendicitis. The patient has some underlying dementia and his physical exam was somewhat compromised because of his mental status. He did not have a physical exam consistent with acute appendicitis but given the CT findings I discussed his case with the on-call general surgeon. They have agreed to evaluate the patient in the emergency department for further management and disposition. Impression & Plan Acute appendicitis Discharge Plan Visit Data *Final* Discharge Date/Time: 10/05/19 12:43 Chief Complaint: Abdominal Pain ED Provider: Syed Cerda Discharge Problem: Acute appendicitis Patient Disposition: Still a Patient Discharge Instructions Interventions: ED Discharge Assessment Last Done: 10/05/19 12:43 Discharge Problem: Acute appendicitis Qualifiers: Acute appendicitis type: unspecified acute appendicitis type Qualified Code(s): K35.80 - Unspecified acute appendicitis The scribe's documentation has been prepared under my direction and personally reviewed by me in its entirety. I confirm that the note above accurately re flects all work, treatment, procedures, and medical decision making performed by me.
--- NOTE | 2019-10-05 20:51 | Internal Medicine Consult Note ---
Date of Consultation October 05, 2019 Assessment & Plan (1) Acute appendicitis: S/P appendectomy. Doing well postop. (2) Inguinal hernia: Noted on CT. Management per General Surgery. (3) UTI (urinary tract infection): UA demonstrated nitrites, leukocyte esterase, WBC's, bacteria. Urine culture pending. Continue cefoxitin. (4) Parkinsons disease: Continue carbidopa / levodopa. (5) DVT prophylaxis: SCD's ordered. Ambulate as able. (6) Discharge planning issues: May need skilled care before returning to [facility]. (7) Encounter for consultation: Thank you for this consultation. We will follow the patient with you during their hospital stay. My cell # is [phone]. You can reach a member of the [facility] Medicine Team 10/03 via pager @ [phone]. History of Present Illness Reason for Consultation: Medical management Attending Physician: Aminta Hassan MD History of Present Illness 74-year-old male with history of Parkinson's disease and other problems. He is a resident at [facility]. Presented to ED with abdominal pain and found to have acute appendicitis. Appendectomy performed by Dr. Hassan. Doing well postoperatively. No chest pain, cough, SOB, nausea, vomiting. Pain well-controlled. Allergies Allergy/AdvReac Type Severity Reaction Status Date / Time No Known Allergies Allergy Verified 10/05/19 11:54 Home Medications Home Medications Medication Instructions Recorded Confirmed Type diphenhydramine HCl [Banophen] 25 mg PO Q6H PRN 12/04/18 10/05/19 History nystatin 1 applic TOPICAL BID PRN 12/04/18 10/05/19 History carbamide peroxide [Ear Wax Drops] 5 drp OTIC (EAR) Q12H PRN 02/13/19 10/05/19 History docusate sodium 100 mg PO DAILY PRN 02/13/19 10/05/19 History acetaminophen 325 mg capsule 650 mg PO Q4H PRN cap 06/02/19 10/05/19 History carbidopa 25 mg-levodopa 100 mg 1 tab PO QID 06/15/19 10/05/19 History tablet amlodipine 5 mg PO QAM 06/23/19 10/05/19 History Patient History Medical History (Updated 10/06/19 @ 04:49 by Huy Perez MD) Acute renal failure (Resolved) hx 10/2018 Bilateral hydronephrosis BPH (benign prostatic hyperplasia) Bradycardia Ulrich catheter in place MVP (mitral valve prolapse) Moderate prolapse of the posterior mitral valve leaflet per 04/2019 ECHO Parkinson disease with cognitive impairment Tremor Surgical History History of prostate surgery History of testicular surgery 06/2019. General anesthesia. 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 Required: No Beliefs That Will Affect Care: None marital status: Single Current Living Situation: Personal Care Facility Current Living Situation Comment: [facility] current occupational status: retired Other Information That Helps Us Care for You: No Feels Safe at Home: Yes Smoking Status: Never smoker Second Hand Exposure: No ; Hx Alcohol Use: No Hx Substance Use: No Review of Systems Constitutional: no fever Respiratory: no cough and no dyspnea Cardiovascular: no chest pain Gastrointestinal: no nausea and no vomiting Neurologic: + tremor(s) Physical Exam Constitutional: WD/WN, vitals as above no acute distress Eyes: PERRL, conjunctivae normal, anicteric sclerae ENMT: external ear and nose normal, oropharynx normal Neck: trachea midline, no thyromegaly Respiratory: normal respiratory effort, lungs clear to auscultation Cardiovascular: Rate/Rhythm: regular rate Heart Sounds: no gallop, no murmur and no cardiac rub Vessels: no JVD Extremities: normal capillary refill; no calf tenderness and no edema Gastrointestinal (Abdomen): Inspection/Auscultation: + abnormal bowel sounds (quiet) Percussion/Palpation: abdomen soft Musculoskeletal: Head/Neck/Chest: neck supple Extremities: strength 5/5 throughout; no cyanosis and no clubbing Skin: no rashes, warm and dry Neurologic: masked facies resting tremor moderate cogwheel rigidity upper extremities Psychiatric: Orientation: alert and oriented x 3 Affect: euthymic affect Lymphatic: no cervical lymphadenopathy Results & Data Vital Signs (Past 12 Hours) Vital Signs Temp Pulse Pulse Resp BP BP BP 10/05/19 19:00 36.7 C 67 20 163/94 H 10/05/19 18:03 36.2 C L 86 20 142/89 H 10/05/19 17:20 73 10/05/19 16:55 36.4 C L 80 14 151/79 H 10/05/19 16:30 85 16 161/94 H 10/05/19 16:15 76 16 159/98 H 10/05/19 16:05 36.9 C 74 15 152/94 H 10/05/19 15:55 65 15 167/96 H 10/05/19 15:45 62 16 175/100 H 10/05/19 15:35 36.0 C L 65 16 185/101 H 10/05/19 12:54 36.8 C 61 18 179/95 H 10/05/19 12:31 54 L 15 163/90 H 10/05/19 12:06 54 L 20 150/83 H 10/05/19 11:38 61 15 150/83 H 10/05/19 11:05 36.9 C 70 22 171/90 H Pulse Ox 10/05/19 19:00 95 10/05/19 18:03 97 10/05/19 17:20 10/05/19 16:55 93 10/05/19 16:30 94 10/05/19 16:15 94 10/05/19 16:05 95 10/05/19 15:55 96 10/05/19 15:45 99 10/05/19 15:35 98 10/05/19 12:54 96 10/05/19 12:31 97 10/05/19 12:06 92 10/05/19 11:38 96 10/05/19 11:05 96 Laboratory Results Laboratory Results - last 24 hr 10/05/19 10/05/19 10/05/19 11:05 11:05 11:05 WBC 6.82 RBC 5.06 Hgb 14.4 Hct 44.7 MCV 88.3 MCH 28.5 MCHC 32.2 RDW Std Deviation 47.4 H RDW Coeff of Kayley 14.8 H Plt Count 171 MPV 9.8 Immature Gran % (Auto) 0.1 Neut % (Auto) 76.3 Lymph % (Auto) 18.2 Walker % (Auto) 4.7 Eos % (Auto) 0.6 Baso % (Auto) 0.1 Immature Gran # (Auto) 0.01 Neut # (Auto) 5.20 Lymph # (Auto) 1.24 Walker # (Auto) 0.32 Eos # (Auto) 0.04 Baso # (Auto) 0.01 PT 10.6 INR 1.0 APTT 29.3 PTT Ratio 1.1 Sodium 139 Potassium 4.2 Chloride 106 Carbon Dioxide 30 Anion Gap 3.0 BUN 26 H Creatinine 0.88 Est Cr Clr Drug Dosing 65.8 Est GFR ( Amer) 96.7 Est GFR (Non-Af Amer) 83.4 BUN/Creatinine Ratio 30.0 H Glucose 98 Calcium 8.8 Total Bilirubin 1.1 H AST 7 L ALT 6 L Alkaline Phosphatase 60 Troponin I < 0.015 Total Protein 6.8 Albumin 3.4 Globulin 3.4 Albumin/Globulin Ratio 1.0 Lipase 142 Urine Color Urine Appearance Urine pH Ur Specific [place] Urine Protein Urine Glucose (UA) Urine Ketones Urine Blood Urine Nitrite Urine Bilirubin Urine Urobilinogen Ur Leukocyte Esterase Urine WBC (Auto) Urine RBC (Auto) U Hyaline Cast (Auto) U Epithel Cells (Auto) Urine Bacteria (Auto) Nasal Screen MRSA (PCR) 10/05/19 10/05/19 12:06 20:11 WBC RBC Hgb Hct MCV MCH MCHC RDW Std Deviation RDW Coeff of Kayley Plt Count MPV Immature Gran % (Auto) Neut % (Auto) Lymph % (Auto) Walker % (Auto) Eos % (Auto) Baso % (Auto) Immature Gran # (Auto) Neut # (Auto) Lymph # (Auto) Walker # (Auto) Eos # (Auto) Baso # (Auto) PT INR APTT PTT Ratio Sodium Potassium Chloride Carbon Dioxide Anion Gap BUN Creatinine Est Cr Clr Drug Dosing Est GFR ( Amer) Est GFR (Non-Af Amer) BUN/Creatinine Ratio Glucose Calcium Total Bilirubin AST ALT Alkaline Phosphatase Troponin I Total Protein Albumin Globulin Albumin/Globulin Ratio Lipase Urine Color Yellow Urine Appearance Turbid A Urine pH 7.0 Ur Specific [place] 1.019 Urine Protein 1+ H Urine Glucose (UA) Negative Urine Ketones Negative Urine Blood Trace H Urine Nitrite Positive A Urine Bilirubin Negative Urine Urobilinogen Negative Ur Leukocyte Esterase 3+ H Urine WBC (Auto) >30 H Urine RBC (Auto) 5-10 H U Hyaline Cast (Auto) 1-5 U Epithel Cells (Auto) 5-10 H Urine Bacteria (Auto) 3+ H Nasal Screen MRSA (PCR) Negative Diagnostic Findings PORTABLE CHEST X-RAY FINDINGS: Stable fixed hiatal hernia. Lungs are clear. Diaphragms are smooth. No focal infiltrate. IMPRESSION: Fixed hiatal hernia. No acute process. ACT 112: Negative or not required by law. The above report was generated using voice recognition software. It may contain grammatical, syntax or spelling errors. Electronically signed by: Desean Cooper M.D. 10/05/2019 11:[address] ABDOMEN FINDINGS: There is mild bibasilar atelectasis/scarring. Study is mildly motion degraded. Trace right pleural effusion. Cardiomegaly with trace pericardial effusion. Scattered hepatic hypodensities suggestive of cysts measure up to 3.8 cm within the right hepatic lobe. Liver is otherwise unremarkable. Patency of the hepatic and portal veins. Spleen appears unremarkable. Bilateral adrenal gland thickening suggests hyperplasia. Mild to moderate generalized pancreatic atrophy. There are two cystic foci of the pancreatic tail, largest which measures 1.2 x 1.7 cm in conglomerate measuring up to approximately 2.3 cm, unchanged from comparison suggestive of probable sidebranch IPMN's. Ch olelithiasis without CT evidence of acute cholecystitis. No biliary ductal dilation. Multifocal cortical scarring and parenchymal thinning of the left kidney. Multiple bilateral renal hypodensities suggest probable cysts, most of which are subcentimeter. 1.3 cm cyst with layering milk of calcium involves the inferior pole left kidney. The previously noted tiny punctate nonobstructing left renal c alculi are better seen on comparison study. A 2 mm calculus of the superior pole left kidney redemonstrated. There is resolution of the previously noted left hydroureteronephrosis. There is also likely resolution of the right hydronephrosis with cystic foci of the right renal sinus suggestive of probable renal sinus cysts. No ureteral dilation. Mixed plaque of the abdominal aorta without aneurysm. 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 No adenopathy identified. Large hiatal hernia with perigastric varices. Mildly prominent lymph nodes adjacent to the hernia. No bowel obstruction or bowel wall thickening. Moderate fecal retention. Appendix not imaged. No ascites or mesenteric inflammation identified. Soft tissues are unremarkable. Multilevel facet arthrosis with spondylitic spurring of the spine. Remote partial bony fusion of the L1 and L2 vertebral bodies with remote L1 compression deformity. Unchanged retrolisthesis L2 on L3, likely on a degenerative basis. Heterogeneous appearance of the bone marrow is likely secondary to bone demineralization. IMPRESSION: 1. No acute intra-abdominal or intrapelvic abnormality identified. 2. Large hiatal hernia. No bowel obstruction or bowel wall thickening. 3. Nonobstructing left nephrolithiasis. 4. Resolution of the previously described left hydronephrosis. Persistent hydronephrosis versus renal sinus cysts of the right kidney. 5. Nonobstructing left nephrolithiasis. 6. Mild fecal retention. 7. Additional findings as above. ACT 112: Negative or not required by law. The above report was generated using voice recognition software. It may contain grammatical, syntax or spelling errors. Electronically signed by: Emanuel Browne M.D. 09/24/2019 10:[address] PELVIS FINDINGS: The prostate gland remains mildly enlarged. Moderate well-formed stool within the rectum and visualized colon. Multiple colonic diverticula. No evidence for diverticulitis. The appendix is no fluid-filled and distended measuring up to 13 mm in diameter. This is best seen on images 64 through 100. There are few punctate appendicoliths at the tip of the appendix. No significant inflammatory change. However, the wall the appendix appears be slightly thickened. No pelvic lymphadenopathy. The bladder is decompressed. Multiple bladder diverticula are again noted. There is mild bladder wall thickening with adjacent fat stranding. There are few bladder stones with the largest in the right posterior diverticulum measuring 2 cm. There is a moderate sized right inguinal hernia containing fat and a portion of the right anterior bladder wall. There are few bladder diverticulum noted within this right inguinal hernia. IMPRESSION: 1. Interval distention of the appendix which is fluid-filled and measures up to 13 mm in diameter. A few punctate appendicoliths are seen at the tip. No significant inflammatory change. However, the wall appears to be slightly thickened. Therefore, this meets CT criteria for acute appendicitis. Surgical consultation recommended. 2. Bladder wall thickening with adjacent fat stranding consistent with a cystitis. Recommend correlation with urinalysis. 3. Moderate sized right inguinal hernia containing fat and a portion of the right anterior bladder with associated bladder diverticula. 4. Colonic diverticulosis. 5. Moderate stool within the colon and rectum. 6. Findings were discussed the patient's nurse, Darya Baker, at 10:00 AM on 10/05/2019. ACT 112: Positive. There are findings on this exam that require communication between the performing entity and the patient following Patient Test Result Information Act ([place] Act 112) guidelines. Electronically signed by: Jan Rosen M.D. 10/05/2019 10:02 AM
--- NOTE | 2019-10-05 21:58 | Electrocardiogram Report ---
Test Reason : Blood Pressure : / mmHG Vent. Rate : 058 BPM Atrial Rate : 058 BPM P-R Int : 174 ms QRS Dur : 098 ms QT Int : 406 ms P-R-T Axes : 030 -40 040 degrees QTc Int : 398 ms Sinus bradycardia Left axis deviation Possible Anterior infarct , age undetermined Abnormal ECG When compared with ECG of 09-MAY-2019 21:12, No significant change was found Confirmed by Ed Mullen ([id number]) on 10/05/2019 9:58:07 PM Referred By: Amy Benitez [place] Confirmed By:Ed Mullen
[2019-10-06 06:21] LABS: Basophils # (auto) 0.01 K/uL (0-0.2); Basophils % (auto) 0.2 %; Eosinophils # (auto) 0.08 K/uL (0-0.5); Eosinophils % (auto) 1.3 %; Hematocrit (blood only) 42.4 % (42-52); Hemoglobin 13.6 g/dL (14.0-18.0); Lymphocytes # (auto) 0.96 K/uL (1.2-3.4); Lymphocytes % (auto) 15.1 %; Mean Corpuscular Hemoglobin 28.3 pg (25-34); Mean Corpuscular Hgb Conc 32.1 g/dL (32-36); Mean Corpuscular Volume 88.3 fL (80-100); Mean Platelet Volume 9.7 fL (7.4-10.4); Monocytes # (auto) 0.31 K/uL (0.11-0.59); Monocytes % (auto) 4.9 %; Neutrophils # (auto) 5.01 K/uL (1.4-6.5); Neutrophils % (auto) 78.5 %; Platelet Count 142 K/uL (130-400); RDW Coefficient of Variation 14.5 % (11.5-14.5); RDW Standard Deviation 47.1 fL (36.4-46.3); White Blood Count 6.37 K/uL (4.8-10.8)
[2019-10-06 06:59] LABS: BUN Creatinine Ratio 16.4 (10-20); Calcium 8.5 mg/dl (8.5-10.1); Creatinine Clr Calc Pharmacy 48.3 ml/min; Est GFR (African American) 75.2; Est GFR (Non-African American) 64.9; Potassium 4.1 mmol/L (3.5-5.1)
[2019-10-06 07:04] LABS: Bilirubin,Total 1.9 mg/dl (0.2-1); Globulin 3.1 gm/dl (2.5-4.0); Total Protein 6.1 gm/dl (6.4-8.2)
[2019-10-06] MEDS: LACTATED RINGER'S 1,000 ML IV SCH ×2 (07:44→20:58)
[2019-10-06] MEDS: CARBIDOPA/LEVODOPA 25/100MG TAB PO SCH ×4 (08:42→20:58)
[2019-10-06] MEDS: AMLODIPINE BESYLATE 5 MG TAB PO SCH (08:42)
--- NOTE | 2019-10-06 09:53 | Surgery Progress Note ---
Date of Service October 06, 2019 Assessment & Plan (1) Acute appendicitis: POD # 1 s/p laparoscopic appendectomy - afebrile, vitals stable - no leukocytosis - adequate urine output, clear - no n/v Plan: advance diet as tolerated Continue pain management as needed D/C Ulrich Continue IV Cefoxitin for UTI case management, PT/OT consults for discharge planning. Likely will not be discharged today appreciate hospitalist consult, continue recs increase patient activity today with assistance (2) Acute UTI: Urine culture pending continue Cefoxitin (3) Inguinal hernia: No obstruction f/u Dr. Reyes as outpatient (already seen prior) DR. Hassan has seen and examined patient, agrees with above. Subjective no abdominal pain feels slightly bloated no nausea or vomiting tolerated half of clear liquids this morning still has Ulrich catheter draining yellow somewhat concentrated urine Physical Exam Constitutional: WD/WN, vitals as above no acute distress elderly male Respiratory: normal respiratory effort; no respiratory distress Gastrointestinal (Abdomen): Inspection/Auscultation: + abdomen distended (very mild) Percussion/Palpation: + abdomen tender (mild at incision sites) and abdomen soft; no guarding and abdomen not rigid Skin: no rashes, warm and dry + incision (covered with dry dressings) Psychiatric: Orientation: alert and oriented x 3 Results & Data Vital Signs (Past 12 Hours) Vital Signs Temp Pulse Pulse Pulse Resp BP BP 10/06/19 07:34 36.5 C 50 L 18 154/83 H 10/06/19 05:39 36.6 C 55 L 18 165/88 H 10/06/19 00:22 64 10/05/19 23:00 36.7 C 78 18 154/78 H Pulse Ox 10/06/19 07:34 96 10/06/19 05:39 94 10/06/19 00:22 10/05/19 23:00 98 Laboratory Results 10/06/19 10/06/19 10/05/19 Range/Units 06:09 06:09 20:11 WBC 6.37 (4.8-10.8) K/uL RBC 4.80 (4.7-6.1) M/uL Hgb 13.6 L (14.0-18.0) g/dL Hct 42.4 (42-52) % MCV 88.3 (80-100) fL MCH 28.3 (25-34) pg MCHC 32.1 (32-36) g/dL RDW Std Deviation 47.1 H (36.4-46.3) fL RDW Coeff of Kayley 14.5 (11.5-14.5) % Plt Count 142 (130-400) K/uL MPV 9.7 (7.4-10.4) fL Immature Gran % (Auto) 0.0 % Neut % (Auto) 78.5 % Lymph % (Auto) 15.1 % [place] % (Auto) 4.9 % Eos % (Auto) 1.3 % Baso % (Auto) 0.2 % Immature Gran # (Auto) 0.00 (0.00-0.02) K/uL Neut # (Auto) 5.01 (1.4-6.5) K/uL Lymph # (Auto) 0.96 L (1.2-3.4) K/uL [place] # (Auto) 0.31 (0.11-0.59) K/uL Eos # (Auto) 0.08 (0-0.5) K/uL Baso # (Auto) 0.01 (0-0.2) K/uL PT (9.0-12.0) Seconds INR (0.9-1.1) APTT (21.0-31.0) Seconds PTT Ratio Sodium 136 (136-145) mmol/L Potassium 4.1 (3.5-5.1) mmol/L Chloride 105 (98-107) mmol/L Carbon Dioxide 29 (21-32) mmol/L Anion Gap 2.0 L (3-11) BUN 18 (7-18) mg/dl Creatinine 1.10 (0.6-1.4) mg/dl Est Cr Clr Drug Dosing 48.3 ml/min Est GFR ( Amer) 75.2 Est GFR (Non-Af Amer) 64.9 BUN/Creatinine Ratio 16.4 (10-20) Glucose 91 (70-99) mg/dl Calcium 8.5 (8.5-10.1) mg/dl Total Bilirubin 1.9 H D (0.2-1) mg/dl AST 7 L (15-37) U/L ALT 6 L (12-78) U/L Alkaline Phosphatase 58 (45-117) U/L Troponin I (0-0.045) ng/ml Total Protein 6.1 L (6.4-8.2) gm/dl Albumin 3.0 L (3.4-5.0) gm/dl Globulin 3.1 (2.5-4.0) gm/dl Albumin/Globulin Ratio 1.0 (0.9-2) Lipase (73-393) U/L Urine Color Urine Appearance (Clear) Urine pH (4.5-7.5) Ur Specific [place] (1.000-1.030) Urine Protein (Negative) Urine Glucose (UA) (Negative) Urine Ketones (Negative) Urine Blood (Negative) Urine Nitrite (Negative) Urine Bilirubin (Negative) Urine Urobilinogen (Negative) Ur Leukocyte Esterase (Negative) Urine WBC (Auto) (0-5) /hpf Urine RBC (Auto) (0-4) /hpf U Hyaline Cast (Auto) (0-5) /lpf U Epithel Cells (Auto) (0-5) /lpf Urine Bacteria (Auto) (Negative) Nasal Screen MRSA (PCR) Negative (Negative) 10/05/19 10/05/19 10/05/19 Range/Units 12:06 11:05 11:05 WBC (4.8-10.8) K/uL RBC (4.7-6.1) M/uL Hgb (14.0-18.0) g/dL Hct (42-52) % MCV (80-100) fL MCH (25-34) pg MCHC (32-36) g/dL RDW Std Deviation (36.4-46.3) fL RDW Coeff of Kayley (11.5-14.5) % Plt Count (130-400) K/uL MPV (7.4-10.4) fL Immature Gran % (Auto) % Neut % (Auto) % Lymph % (Auto) % [place] % (Auto) % Eos % (Auto) % Baso % (Auto) % Immature Gran # (Auto) (0.00-0.02) K/uL Neut # (Auto) (1.4-6.5) K/uL Lymph # (Auto) (1.2-3.4) K/uL [place] # (Auto) (0.11-0.59) K/uL Eos # (Auto) (0-0.5) K/uL Baso # (Auto) (0-0.2) K/uL PT 10.6 (9.0-12.0) Seconds INR 1.0 (0.9-1.1) APTT 29.3 (21.0-31.0) Seconds PTT Ratio 1.1 Sodium 139 (136-145) mmol/L Potassium 4.2 (3.5-5.1) mmol/L Chloride 106 (98-107) mmol/L Carbon Dioxide 30 (21-32) mmol/L Anion Gap 3.0 (3-11) BUN 26 H (7-18) mg/dl Creatinine 0.88 (0.6-1.4) mg/dl Est Cr Clr Drug Dosing 65.8 ml/min Est GFR ( Amer) 96.7 Est GFR (Non-Af Amer) 83.4 BUN/Creatinine Ratio 30.0 H (10-20) Glucose 98 (70-99) mg/dl Calcium 8.8 (8.5-10.1) mg/dl Total Bilirubin 1.1 H (0.2-1) mg/dl AST 7 L (15-37) U/L ALT 6 L (12-78) U/L Alkaline Phosphatase 60 (45-117) U/L Troponin I < 0.015 (0-0.045) ng/ml Total Protein 6.8 (6.4-8.2) gm/dl Albumin 3.4 (3.4-5.0) gm/dl Globulin 3.4 (2.5-4.0) gm/dl Albumin/Globulin Ratio 1.0 (0.9-2) Lipase 142 (73-393) U/L Urine Color Yellow Urine Appearance Turbid A (Clear) Urine pH 7.0 (4.5-7.5) Ur Specific [place] 1.019 (1.000-1.030) Urine Protein 1+ H (Negative) Urine Glucose (UA) Negative (Negative) Urine Ketones Negative (Negative) Urine Blood Trace H (Negative) Urine Nitrite Positive A (Negative) Urine Bilirubin Negative (Negative) Urine Urobilinogen Negative (Negative) Ur Leukocyte Esterase 3+ H (Negative) Urine WBC (Auto) >30 H (0-5) /hpf Urine RBC (Auto) 5-10 H (0-4) /hpf U Hyaline Cast (Auto) 1-5 (0-5) /lpf U Epithel Cells (Auto) 5-10 H (0-5) /lpf Urine Bacteria (Auto) 3+ H (Negative) Nasal Screen MRSA (PCR) (Negative) 10/05/19 Range/Units 11:05 WBC 6.82 (4.8-10.8) K/uL RBC 5.06 (4.7-6.1) M/uL Hgb 14.4 (14.0-18.0) g/dL Hct 44.7 (42-52) % MCV 88.3 (80-100) fL MCH 28.5 (25-34) pg MCHC 32.2 (32-36) g/dL RDW Std Deviation 47.4 H (36.4-46.3) fL RDW Coeff of Kayley 14.8 H (11.5-14.5) % Plt Count 171 (130-400) K/uL MPV 9.8 (7.4-10.4) fL Immature Gran % (Auto) 0.1 % Neut % (Auto) 76.3 % Lymph % (Auto) 18.2 % [place] % (Auto) 4.7 % Eos % (Auto) 0.6 % Baso % (Auto) 0.1 % Immature Gran # (Auto) 0.01 (0.00-0.02) K/uL Neut # (Auto) 5.20 (1.4-6.5) K/uL Lymph # (Auto) 1.24 (1.2-3.4) K/uL [place] # (Auto) 0.32 (0.11-0.59) K/uL Eos # (Auto) 0.04 (0-0.5) K/uL Baso # (Auto) 0.01 (0-0.2) K/uL PT (9.0-12.0) Seconds INR (0.9-1.1) APTT (21.0-31.0) Seconds PTT Ratio Sodium (136-145) mmol/L Potassium (3.5-5.1) mmol/L Chloride (98-107) mmol/L Carbon Dioxide (21-32) mmol/L Anion Gap (3-11) BUN (7-18) mg/dl Creatinine (0.6-1.4) mg/dl Est Cr Clr Drug Dosing ml/min Est GFR ( Amer) Est GFR (Non-Af Amer) BUN/Creatinine Ratio (10-20) Glucose (70-99) mg/dl Calcium (8.5-10.1) mg/dl Total Bilirubin (0.2-1) mg/dl AST (15-37) U/L ALT (12-78) U/L Alkaline Phosphatase (45-117) U/L Troponin I (0-0.045) ng/ml Total Protein (6.4-8.2) gm/dl Albumin (3.4-5.0) gm/dl Globulin (2.5-4.0) gm/dl Albumin/Globulin Ratio (0.9-2) Lipase (73-393) U/L Urine Color Urine Appearance (Clear) Urine pH (4.5-7.5) Ur Specific [place] (1.000-1.030) Urine Protein (Negative) Urine Glucose (UA) (Negative) Urine Ketones (Negative) Urine Blood (Negative) Urine Nitrite (Negative) Urine Bilirubin (Negative) Urine Urobilinogen (Negative) Ur Leukocyte Esterase (Negative) Urine WBC (Auto) (0-5) /hpf Urine RBC (Auto) (0-4) /hpf U Hyaline Cast (Auto) (0-5) /lpf U Epithel Cells (Auto) (0-5) /lpf Urine Bacteria (Auto) (Negative) Nasal Screen MRSA (PCR) (Negative)
--- NOTE | 2019-10-06 14:40 | Hospitalist Progress Note ---
Date of Service October 06, 2019 Assessment & Plan (1) Acute appendicitis: S/P appendectomy on 10/05/2019 Surgery team following closely Doing well postop.-We will to pass gas, started on clears, advance diet as tolerated (2) Inguinal hernia: Noted on CT. Management per General Surgery. (3) UTI (urinary tract infection): UA demonstrated nitrites, leukocyte esterase, WBC's, bacteria. Urine culture shows 3 types of organism. DC antibiotic. (4) Parkinsons disease: Continue carbidopa / levodopa. (5) DVT prophylaxis: SCD's ordered. Ambulate as able. (6) Discharge planning issues: Order for PT OT, Presented in [facility]. (7) Encounter for consultation: Thank you for this consultation. We will follow the patient with you during his hospital stay. . You can reach a member of the [facility] Medicine Team 10/03 via pager @ [phone]. Admission and Anticipated Discharge Date Admission Date: October 05, 2019 Subjective Advance to clear by surgery team tolerating well Complaints of abdominal pain at surgical site Able to pass gas, no bowel movement yet No fever or chills Review of Systems Review of Systems: All systems reviewed & are unremarkable except as noted in HPI & below Gastrointestinal: + abdominal pain (At laparoscopic surgical site); no nausea and no vomiting Physical Exam Constitutional: WD/WN, vitals as above + ill appearing; no acute distress Eyes: PERRL, conjunctivae normal, anicteric sclerae ENMT: external ear and nose normal, oropharynx normal Neck: trachea midline, no thyromegaly Respiratory: normal respiratory effort, lungs clear to auscultation Cardiovascular: RRR, no murmur, no edema Gastrointestinal (Abdomen): Inspection/Auscultation: normal bowel sounds Percussion/Palpation: abdomen soft Status post laparoscopic appendectomy/laparoscopic surgical site intact Musculoskeletal: no cyanosis or clubbing, extremities motor strength 5/5 Skin: no rashes, warm and dry Neurologic: PERRL, EOMI, accommodation nl, no face palsy, no dysarthria Psychiatric: A+Ox3, euthymic affect Results & Data ([facility]) Vital Signs (Past 12 Hours) Vital Signs Temp Pulse Pulse Resp BP BP Pulse Ox 10/06/19 11:55 36.7 C 80 18 160/90 H 93 10/06/19 07:34 36.5 C 50 L 18 154/83 H 96 10/06/19 07:00 51 L 10/06/19 05:39 36.6 C 55 L 18 165/88 H 94
[2019-10-07] MEDS: AMLODIPINE BESYLATE 5 MG TAB PO SCH (07:54)
[2019-10-07] MEDS: CARBIDOPA/LEVODOPA 25/100MG TAB PO SCH ×2 (07:54→12:30)
[2019-10-07] MEDS: LACTATED RINGER'S 1,000 ML IV SCH (10:32)
--- NOTE | 2019-10-07 13:47 | Surgery Progress Note ---
Date of Service October 07, 2019 Assessment & Plan (1) Acute appendicitis: POD # 2 s/p laparoscopic appendectomy - afebrile, vitals stable - adequate urine output, clear - no n/v, + bowel function Plan: Okay for discharge back to personal al[facility] today Will check with Medicine in regards to oral abx for UTI discontinue IV fluids continue regular diet f/u surgical office in 2 weeks for appendicitis postop visit will need to follow-up with Dr. Reyes in regards to right inguinal hernia would recommend follow-up with urology given bladder stones/bladder diverticulum, and bladder involved in inguinal hernia Dr. Hassan was present during my examination and agrees with above. Subjective no abdominal pain tolerating diet no n/v had large formed bowel movement Nurse states he walked with PT earlier. Physical Exam Constitutional: WD/WN, vitals as above no acute distress Respiratory: normal respiratory effort; no respiratory distress Gastrointestinal (Abdomen): Inspection/Auscultation: abdomen normal to inspection; abdomen not distended Percussion/Palpation: + abdomen tender (very mild at incision sites) and abdomen soft; no guarding and abdomen not rigid Skin: no rashes, warm and dry Results & Data Vital Signs (Past 12 Hours) Vital Signs Temp Pulse Resp BP Pulse Ox 10/07/19 11:51 36.7 C 75 18 113/70 94 10/07/19 07:29 36.6 C 59 L 18 158/87 H 95 10/07/19 04:00 36.7 C 53 L 17 132/72 94
--- NOTE | 2019-10-07 16:36 | Hospitalist Progress Note ---
Date of Service October 07, 2019 Assessment & Plan (1) Acute appendicitis: S/P appendectomy on 10/05/2019 Surgery team following closely Covered well postoperatively, tolerating solid diet, able to get out of bed and ambulate in hallway with assistance, had bowel movement Stable to be discharged by surgery team (2) Inguinal hernia: Noted on CT. Management per General Surgery. (3) UTI (urinary tract infection): UA demonstrated nitrites, leukocyte esterase, WBC's, bacteria. Urine culture shows [address] abdomenpelvis showed possible cystitis, urinary bladder stone Patient will complete 3 more days of p.o. ciprofloxacin Outpatient urology evaluation for stone noted in urinary bladder (4) Parkinsons disease: Continue carbidopa / levodopa. (5) DVT prophylaxis: SCD's ordered. Ambulate as able. (6) Discharge planning issues: Patient is medically stable to return back to [facility] (7) Encounter for consultation: Admission and Anticipated Discharge Date Admission Date: October 05, 2019 Subjective Doing very well tolerated solid diet, had bowel movement, out of bed walked in the hallway with physical therapy Fever or chills, stable to be discharged today Review of Systems Review of Systems: All systems reviewed & are unremarkable except as noted in HPI & below Physical Exam Constitutional: WD/WN, vitals as above + ill appearing; no acute distress Eyes: PERRL, conjunctivae normal, anicteric sclerae ENMT: external ear and nose normal, oropharynx normal Neck: trachea midline, no thyromegaly Respiratory: normal respiratory effort, lungs clear to auscultation Cardiovascular: RRR, no murmur, no edema Gastrointestinal (Abdomen): Inspection/Auscultation: normal bowel sounds Percussion/Palpation: abdomen soft Musculoskeletal: no cyanosis or clubbing, extremities motor strength 5/5 Skin: no rashes, warm and dry Neurologic: PERRL, EOMI, accommodation nl, no face palsy, no dysarthria Psychiatric: A+Ox3, euthymic affect Results & Data ([facility]) Vital Signs (Past 12 Hours) Vital Signs Temp Pulse Pulse Resp BP BP Pulse Ox 10/07/19 15:34 36.7 C 78 75 18 160/68 H 113/70 94 10/07/19 11:51 36.7 C 75 18 113/70 94 02/20/20 07:29 36.6 C 59 L 18 158/87 H 95
--- NOTE | 2019-10-08 11:05 | Discharge Summary ---
Date of Service October 08, 2019 Admission HPI Per Admitting Provider HPI: pt is a 74 year-old male who had CT scan done today for lower abdominal pain, CT scan diagnosis- enlarge appendix 1.3cm, appendicitis, pt's PMH - parkinsons disease, bradycardia, syncope, acute renal failure, tremor, but pt he knows he is in hospital now, and his name, pt denies abdominal pain now, no nausea, no vomiting. Principal Diagnosis Acute appendicitis UTI Discharge Data Allergies Allergy/AdvReac Type Severity Reaction Status Date / Time No Known Allergies Allergy Verified 10/05/19 11:54 Consultations 10/05/19 11:12 Consult General Surgery Stat 10/05/19 15:28 Consult Hospitalist Routine 10/06/19 07:48 Consult Case Management - Discharge Planning Routine Procedures Performed Operation Date: 10/05/19 13:10 Actual Procedures p Laparoscopic Appendectomy(Not Applicable) - Aminta Hassan MD Hospital Course (1) Acute appendicitis: Patient taken to operating room for laparoscopic appendectomy possible open by Dr. Hassan. Patient was found to have acute appendicitis however no perforation or abscess. He did have large noticeable right inguinal hernia containing part of bladder but no colon. Patient tolerated procedure well and was transferred to recovery then to telemetry floor for postoperative care. Medicine consulted for comanagement given medical comorbidities. Diet was advanced to clear liquids, PO Tylenol and Percocet prn pain, IV fluids, IV Cefoxitin, and Ulrich catehter was continued. POD # 1 vitals stable, afebrile, pain minimal. Diet advanced to regular diet. Ulrich removed. Case management and PT/OT consulted for discharge planning. POD # 2 afebrile, vitals stable, tolerating regular diet, no abdominal pain, formed bowel movement, walked with PT. Patient was discharged back to personal [facility] in stable condition. (2) Acute UTI: IV Cefoxitin was continued post op. Was transitioned to oral Cipro for 3 days on discharge. Ulrich catheter was removed on POD # 1 Total Time Total Time Spent Total Time Spent (In Minutes): 20 Total Time Includes: Examination of the Patient, Discharge Planning, Medication Reconciliation and Communication With Other Providers Discharge Plan Discharge Items Patient Disposition: Personal [facility] Reason For Visit: ACUTE APPENDICITIS Discharge Diagnosis: Same Activity: Per Instructions section Non-emergency contact: Primary Care Provider and Surgeon Call non-emergency contact if: you have any medication questions, your pain is not controlled, your pain is concerning for you, you have a fever, your temperature is above 101, your wound has increased redness, your wound has increased drainage and your wound pain has increased Follow-up/Referrals: Shawn Albert MD [Physician] - (Follow up with Urology for Stone in urinary bladder ) [facility] [Primary Care Provider] - Diet: Regular Addtl Attending Provider Instructions: Post-Surgical ~Discharge Instructions Activity Recommendations: - lifting limitation: (25 pounds for 4 weeks), - exercise/sex/sports limit: (nonstrenuous for 4 weeks), - driving or machine use limit: (none for 1 week), - Shower/bathe limit: (may shower beginning tomorrow) Diet: - Resume previous diet SPECIAL CARE INSTRUCTIONS: - May shower in 24 hours. Let water run over area and pat dry. - Leave steri strips on for one week. - Call the surgeon's office with any questions or concerns - - (ex. temperature higher than 101 degrees F, excessive bleeding or pain). MEDICATIONS: - Resume previous medications unless instructed otherwise by your surgeon. - Tylenol 650 mg every 6 hours as needed. FOLLOW UP VISIT: - If not already scheduled, please call the office to schedule a two week follow-up appointment. Office number You will need to follow up with Dr. Reyes at [facility] in regards to your right inguinal hernia. COMPLETE ANTIBIOTIC CIPROFLOXACIN 250 MG 1 TABLET TWICE DAILY FOR x3 DAYS -FOR URINARY TRACT INFECTION Pending Studies at Discharge: Yes (appendix pathology, will be reviewed at follow-up visit) Stand-Alone Forms: My [facility] FFWD, Smoking Cessation Skilled Items Patient informed of condition?: Yes DNR: No Discharge Level of Care: Skilled Communicable Disease: No Discharge Prognosis: Stable Lines: None Urinary Catheter: No Medications and DC Order Prescriptions: New ciprofloxacin HCl [Cipro] 250 mg tablet 250 mg PO BID 3 Days Qty: 6 RF: 0 Continued carbidopa-levodopa 25-100 mg tablet 1 tab PO QID RF: 0 acetaminophen 325 mg capsule 650 mg PO Q4H PRN (Reason: Pain) RF: 0 nystatin 100,000 unit/gram Cream 1 applic TOPICAL BID PRN (Reason: AFFECTED SKIN AREA) RF: 0 diphenhydramine HCl [Banophen] 25 mg Tablet 25 mg PO Q6H PRN (Reason: Congestion) RF: 0 docusate sodium 100 mg capsule 100 mg PO DAILY PRN (Reason: constipation) RF: 0 carbamide peroxide [Ear Wax Drops] 6.5 % Drops 5 drp OTIC (EAR) Q12H PRN (Reason: ear wax removal) RF: 0 amlodipine 5 mg Tablet 5 mg PO QAM RF: 0 Discharge Orders: Discharge Order (Routine); Ordered 10/07/19 Ordered By: Talisha Clarke Admission Data Admit Date/Time: 10/05/19 15:21 Attending Provider: Aminta Hassan Admit Provider: Aminta Hassan [facility] Other Providers: Aminta Hassan ; Yesi Machado ; Rebekah Godfrey ; Charu Nolen ; Paola Rosenthal ; Omayra Butcher ; Adriana Cerrato ; Erik Perea ; Anatoliy Blue ; Kailash Vela ; Phyllis Lockhart ; Cele Dutta ; Tawana Whitt ; Drake Valdivia ; Jewel Rivera ; Samantha Maharaj ; Tae Lennon ; Yany Larkin ; Jewel Cobos ; Isamar Stephens ; Magdalena Huggins ; Laisha Tanner I. ; Ti Almaraz ; Patricia Leach Other Interventions: Discharge Summary Assessment (RN) Last Done: 10/07/19 15:34 DC Date/Time DO NOT enter until pt leaves facility: 10/07/19 16:06
== END 2019-10-07 16:06 | disposition home or self-care (01) ==
LOC: ED 10:53 → ASU 12:43 → 2W 12:43

== ENCOUNTER 2020-06-04 20:00 | Inpatient (IN) ==
[2020-06-04] MEDS ORDERED: SODIUM CHLORIDE 0.9% 1000ML 1,000 ML IV ONE ×2 (20:14→22:49)
--- NOTE | 2020-06-04 20:17 | Emergency Department Note ---
Impression & Plan Acute pyelonephritis, Fever, Acute alteration in mental status, COVID-19 virus infection ED Provider Note NAME: NAHEED BOWIE AGE: 74 SEX: M : 1945 ARRIVES VIA: Ambulance INFORMANT: Patient, skilled nursing documentation as well as prehospital personnel. ED PROVIDER(S): Syed Cerda DO CHIEF COMPLAINT: Altered mental status HPI: The patient is a 74-year-old male who presented to the emergency department from [facility] for altered mental status. The patient reportedly had a low-grade fever. He has been confused for most of the day. The patient does have a history of Parkinson's. He also tested positive for COVID-19 recently according to the prehospital personnel. The patient himself does not offer any complaints. He denies having any falls. He denies having any chest pain nausea or vomiting. He denies having any lower extremity swelling or pain in his legs. Patient states that he has been moving his bowels regularly. According to the prehospital personnel the patient appeared dehy drated and received 250 mL of normal saline. He had an oxygen saturation of 92 to 93% and was placed on 2 L nasal cannula which improved his saturations to the high 90s. There is no hypotension reported. The patient had a reported temperature of 100.4 Fahrenheit. ROS: See above HPI for pertinent positives & negatives. A total of 10 systems reviewed and were otherwise negative. PAST MEDICAL HISTORY: See Below PAST SURGICAL HISTORY: See Below FAMILY HISTORY: See Below SOCIAL HISTORY: See Below HOME MEDICATIONS: See Below ALLERGIES: See Below VITALS: See Below PHYSICAL EXAMINATION: GENERAL: The patient is awake and alert. He is somewhat listless appearing but answers questions appropriately but slowly. EYES: The conjunctivae are clear. The pupils are round and reactive. EARS, NOSE, MOUTH AND THROAT: The nose is without any evidence of any deformity. Mucous membranes are dry. NECK: The neck is nontender and supple. RESPIRATORY: Normal respiratory effort is noted there is no evidence of wheezing rhonchi or rales CARDIOVASCULAR: Regular rate and rhythm noted there no murmurs rubs or gallops normal S1 normal S2. GASTROINTESTINAL: The abdomen is soft. Abdomen is nontender. MUSCULOSKELETAL/EXTREMITIES: There is no evidence of gross deformity full range of motion is noted in the hips and shoulders. SKIN: Skin was warm and dry. There was trace pedal edema bilaterally. NEUROLOGIC: Patient is oriented to person place but not time or situation. Strength was symmetric but diminished bilaterally. Voice was soft. MEDICAL DECISION MAKING: The patient is a 74-year-old male who presented to the emergency department for an evaluation of altered mental status. The patient was recently diagnosed with COVID-19 infection from his personal halfway. He was noted to have low-grade fever and altered mental status and was sent to the emergency department. The patient's work-up included CT the head as well as the abdomen and pelvis. He was found to have signs of urine infection on CT as well as urinalysis. The patient also has a bladder stone. The patient was treated with IV fluids and IV Zosyn. Previous urine culture did grow out Pseudomonas. I discussed his case with his power of criminal defense attorney, his cousin Monty. I also discussed his case with the on-call [facility] hospitalist. They will evaluate the patient in the emergency department for further management and disposition. Triage Nursing notes reviewed. Prior medical records reviewed Vital Signs: reviewed and remarkable for elevated blood pressure. Differential diagnosis: Infection, dehydration, metabolic abnormality, hypo/hyperglycemia, electrolyte disturbance, anemia, hypoxia, cardiac sources, intracerebral event, toxicologic, neurologic, as well as other pathologies. ER treatment provided: See below Diagnostics interpreted by me: ECG: EKG was obtained in the emergency department. My interpretation is normal sinus rhythm at 85 bpm. There is no ectopy. Lateral ST depressions were noted with poor R wave progression. This was compared to a tracing from October 052019. No significant changes were noted. Cardiac Monitoring: An order was placed for continuous cardiac monitoring. The monitor shows a rate of 76 bpm with sinus rhythm. Laboratory studies: As stated above and show below. Imaging studies: See below Consultation(s): 321: I discussed the patient's condition with his cousin, Monty. He is aware that the patient is going to be evaluated by the hospitalist. 2299: I discussed this case with Dr. Blue [facility] He will evaluate the patient in the emergency department. Past Med/Surg History Medical History Acute renal failure hx 10/2018 Bilateral hydronephrosis BPH (benign prostatic hyperplasia) Bradycardia Ulrich catheter in place MVP (mitral valve prolapse) Moderate prolapse of the posterior mitral valve leaflet per 04/2019 ECHO Parkinson disease with cognitive impairment Tremor Surgical History History of prostate surgery History of testicular surgery 06/2019. General anesthesia. LMA #4 igel Family History Father No pertinent family history Mother No pertinent family history Other Brain tumor Social History Smoking Status: Never smoker Second Hand Exposure: No; Hx Alcohol Use: No Hx Substance Use: No Preferred Language: Cape Verdean Communication Ability: Effective Data Developer Required: No Beliefs That Will Affect Care: None marital status: Single Current Living Situation: Personal Care Facility Current Living Situation Comment: [facility] current occupational status: retired How many Children do You have: 0 Feels Safe at Home: Yes Assistive Devices: Walker Allergies Allergies Allergy/AdvReac Type Severity Reaction Status Date / Time No Known Allergies Allergy Verified 04/12/20 10:00 Home Meds Home Medications Medication Instructions Recorded Confirmed diphenhydramine HCl [Banophen] 25 mg PO Q6H PRN 12/04/18 04/12/20 nystatin 1 applic TOPICAL BID PRN 12/04/18 04/12/20 carbamide peroxide [Ear Wax Drops] 5 drp OTIC (EAR) Q12H PRN 02/13/19 04/12/20 docusate sodium 100 mg PO DAILY PRN 02/13/19 04/12/20 acetaminophen 325 mg capsule 650 mg PO Q4H PRN cap 06/02/19 04/12/20 carbidopa 25 mg-levodopa 100 mg 1 tab PO QID 06/15/19 04/12/20 tablet amlodipine 2.5 mg tablet 2.5 mg PO DAILY 10/14/19 04/12/20 Previous Rx's Medication Instructions Recorded amantadine HCl 100 mg capsule 100 mg PO BID #60 cap 10/14/19 Results & Data (ED) Vital Signs Vital Signs - 24 hr 06/04/20 20:00 06/04/20 20:21 06/04/20 20:22 Temperature 36.6 C Temperature Source Oral Pulse Rate 91 H 91 H Pulse Rate from SpO2 Sensor Pulse Rhythm Regular Regular Respiratory Rate 25 H 25 H 25 H Respiratory Effort / Characteristics Non-Labored Spontaneous Non-Labored Spontaneous Respiratory Depth Normal Respiratory Pattern Regular Blood Pressure 154/89 H Blood Pressure Mean 110 Pulse Oximetry 95 95 95 Oxygen Delivery Method Room Air Room Air Room Air Sepsis Recent Fever Within 48 Hours No Sepsis New/Unexplained Change in Mental Status No Sepsis Action Taken by Nursing No Action Required 06/04/20 21:00 06/04/20 21:01 06/04/20 21:30 Temperature Temperature Source Pulse Rate 74 71 Pulse Rate from SpO2 Sensor 74 73 Pulse Rhythm Respiratory Rate 26 H 26 H 25 H Respiratory Effort / Characteristics Non-Labored Spontaneous Respiratory Depth Respiratory Pattern Blood Pressure 147/89 H 144/81 H Blood Pressure Mean 119 89 Pulse Oximetry 94 93 94 Oxygen Delivery Method Room Air Room Air Room Air Sepsis Recent Fever Within 48 Hours Sepsis New/Unexplained Change in Mental Status Sepsis Action Taken by Nursing 06/04/20 22:00 06/04/20 22:22 06/04/20 22:26 Temperature Temperature Source Pulse Rate 76 Pulse Rate from SpO2 Sensor 76 Pulse Rhythm Respiratory Rate 26 H 26 H 26 H Respiratory Effort / Characteristics Non-Labored Spontaneous Non-Labored Spontaneous Respiratory Depth Respiratory Pattern Blood Pressure 149/75 H Blood Pressure Mean 97 Pulse Oximetry 94 94 94 Oxygen Delivery Method Room Air Room Air Room Air Sepsis Recent Fever Within 48 Hours Sepsis New/Unexplained Change in Mental Status Sepsis Action Taken by Custodial Medications Current Medication List: was personally reviewed by me Laboratory Data Attestation: I reviewed the patient's lab results. Result diagrams: 06/04/20 20:31 06/04/20 20:31 Lab Results 06/04/20 06/04/20 06/04/20 Range/Units 20:31 20:31 20:31 WBC 4.72 L (4.8-10.8) K/uL RBC 5.12 (4.7-6.1) M/uL Hgb 15.2 (14.0-18.0) g/dL Hct 44.6 (42-52) % MCV 87.1 (80-100) fL MCH 29.7 (25-34) pg MCHC 34.1 (32-36) g/dL RDW Std Deviation 44.2 (36.4-46.3) fL RDW Coeff of Kayley 13.7 (11.5-14.5) % Plt Count 139 (130-400) K/uL MPV 10.0 (7.4-10.4) fL Immature Gran % (Auto) 0.0 % Neut % (Auto) 85.8 % Lymph % (Auto) 6.8 % Ward % (Auto) 7.0 % Eos % (Auto) 0.2 % Baso % (Auto) 0.2 % Neut # (Auto) 4.05 (1.4-6.5) K/uL Lymph # (Auto) 0.32 L (1.2-3.4) K/uL Ward # (Auto) 0.33 (0.11-0.59) K/uL Eos # (Auto) 0.01 (0-0.5) K/uL Baso # (Auto) 0.01 (0-0.2) K/uL Immature Gran # (Auto) 0.00 (0.00-0.02) K/uL PT 11.2 (9.0-12.0) Seconds INR 1.1 (0.9-1.1) APTT 38.9 H (21.0-31.0) Seconds PTT Ratio 1.4 VBG pH (7.36-7.41) VBG pCO2 (38-50) mmHg VBG pO2 mmHg VBG HCO3 mmol/L VBG O2 Saturation % VBG Base Excess mEq/L Barometric Pressure mm/Hg Sodium 137 (136-145) mmol/L Potassium 3.9 (3.5-5.1) mmol/L Chloride 105 (98-107) mmol/L Carbon Dioxide 26 (21-32) mmol/L Anion Gap 7.0 (3-11) BUN 30 H (7-18) mg/dl Creatinine 0.98 (0.6-1.4) mg/dl Est Cr Clr Drug Dosing 57.4 ml/min Est GFR ( Amer) 86.5 Est GFR (Non-Af Amer) 74.6 BUN/Creatinine Ratio 30.3 H (10-20) Glucose 106 H (70-99) mg/dl Lactate (0.4-2.0) mmol/L Calcium 8.7 (8.5-10.1) mg/dl Magnesium 1.9 (1.8-2.4) mg/dl Total Bilirubin 1.3 H (0.2-1) mg/dl AST 11 L (15-37) U/L ALT 6 L (12-78) U/L Alkaline Phosphatase 64 (45-117) U/L Troponin I < 0.015 (0-0.045) ng/ml Total Protein 7.0 (6.4-8.2) gm/dl Albumin 2.9 L (3.4-5.0) gm/dl Globulin 4.1 H (2.5-4.0) gm/dl Albumin/Globulin Ratio 0.7 L (0.9-2) Procalcitonin (0-0.5) ng/ml Urine Color Urine Appearance (Clear) Urine pH (4.5-7.5) Ur Specific Milton (1.000-1.030) Urine Protein (Negative) Urine Glucose (UA) (Negative) Urine Ketones (Negative) Urine Blood (Negative) Urine Nitrite (Negative) Urine Bilirubin (Negative) Urine Urobilinogen (Negative) Ur Leukocyte Esterase (Negative) 06/04/20 06/04/20 06/04/20 Range/Units 20:31 21:09 21:09 WBC (4.8-10.8) K/uL RBC (4.7-6.1) M/uL Hgb (14.0-18.0) g/dL Hct (42-52) % MCV (80-100) fL MCH (25-34) pg MCHC (32-36) g/dL RDW Std Deviation (36.4-46.3) fL RDW Coeff of Kayley (11.5-14.5) % Plt Count (130-400) K/uL MPV (7.4-10.4) fL Immature Gran % (Auto) % Neut % (Auto) % Lymph % (Auto) % Ward % (Auto) % Eos % (Auto) % Baso % (Auto) % Neut # (Auto) (1.4-6.5) K/uL Lymph # (Auto) (1.2-3.4) K/uL Ward # (Auto) (0.11-0.59) K/uL Eos # (Auto) (0-0.5) K/uL Baso # (Auto) (0-0.2) K/uL Immature Gran # (Auto) (0.00-0.02) K/uL PT (9.0-12.0) Seconds INR (0.9-1.1) APTT (21.0-31.0) Seconds PTT Ratio VBG pH 7.40 (7.36-7.41) VBG pCO2 41 (38-50) mmHg VBG pO2 32 mmHg VBG HCO3 25 mmol/L VBG O2 Saturation < 60.0 % VBG Base Excess -0.1 mEq/L Barometric Pressure 738.5 mm/Hg Sodium (136-145) mmol/L Potassium (3.5-5.1) mmol/L Chloride (98-107) mmol/L Carbon Dioxide (21-32) mmol/L Anion Gap (3-11) BUN (7-18) mg/dl Creatinine (0.6-1.4) mg/dl Est Cr Clr Drug Dosing ml/min Est GFR ( Amer) Est GFR (Non-Af Amer) BUN/Creatinine Ratio (10-20) Glucose (70-99) mg/dl Lactate 1.2 (0.4-2.0) mmol/L Calcium (8.5-10.1) mg/dl Magnesium (1.8-2.4) mg/dl Total Bilirubin (0.2-1) mg/dl AST (15-37) U/L ALT (12-78) U/L Alkaline Phosphatase (45-117) U/L Troponin I (0-0.045) ng/ml Total Protein (6.4-8.2) gm/dl Albumin (3.4-5.0) gm/dl Globulin (2.5-4.0) gm/dl Albumin/Globulin Ratio (0.9-2) Procalcitonin 0.05 (0-0.5) ng/ml Urine Color Urine Appearance (Clear) Urine pH (4.5-7.5) Ur Specific Milton (1.000-1.030) Urine Protein (Negative) Urine Glucose (UA) (Negative) Urine Ketones (Negative) Urine Blood (Negative) Urine Nitrite (Negative) Urine Bilirubin (Negative) Urine Urobilinogen (Negative) Ur Leukocyte Esterase (Negative) 06/04/20 Range/Units 22:23 WBC (4.8-10.8) K/uL RBC (4.7-6.1) M/uL Hgb (14.0-18.0) g/dL Hct (42-52) % MCV (80-100) fL MCH (25-34) pg MCHC (32-36) g/dL RDW Std Deviation (36.4-46.3) fL RDW Coeff of Kayley (11.5-14.5) % Plt Count (130-400) K/uL MPV (7.4-10.4) fL Immature Gran % (Auto) % Neut % (Auto) % Lymph % (Auto) % Ward % (Auto) % Eos % (Auto) % Baso % (Auto) % Neut # (Auto) (1.4-6.5) K/uL Lymph # (Auto) (1.2-3.4) K/uL Ward # (Auto) (0.11-0.59) K/uL Eos # (Auto) (0-0.5) K/uL Baso # (Auto) (0-0.2) K/uL Immature Gran # (Auto) (0.00-0.02) K/uL PT (9.0-12.0) Seconds INR (0.9-1.1) APTT (21.0-31.0) Seconds PTT Ratio VBG pH (7.36-7.41) VBG pCO2 (38-50) mmHg VBG pO2 mmHg VBG HCO3 mmol/L VBG O2 Saturation % VBG Base Excess mEq/L Barometric Pressure mm/Hg Sodium (136-145) mmol/L Potassium (3.5-5.1) mmol/L Chloride (98-107) mmol/L Carbon Dioxide (21-32) mmol/L Anion Gap (3-11) BUN (7-18) mg/dl Creatinine (0.6-1.4) mg/dl Est Cr Clr Drug Dosing ml/min Est GFR ( Amer) Est GFR (Non-Af Amer) BUN/Creatinine Ratio (10-20) Glucose (70-99) mg/dl Lactate (0.4-2.0) mmol/L Calcium (8.5-10.1) mg/dl Magnesium (1.8-2.4) mg/dl Total Bilirubin (0.2-1) mg/dl AST (15-37) U/L ALT (12-78) U/L Alkaline Phosphatase (45-117) U/L Troponin I (0-0.045) ng/ml Total Protein (6.4-8.2) gm/dl Albumin (3.4-5.0) gm/dl Globulin (2.5-4.0) gm/dl Albumin/Globulin Ratio (0.9-2) Procalcitonin (0-0.5) ng/ml Urine Color Dark Yellow Urine Appearance Cloudy A (Clear) Urine pH 6.5 (4.5-7.5) Ur Specific Milton 1.020 (1.000-1.030) Urine Protein 2+ H (Negative) Urine Glucose (UA) Negative (Negative) Urine Ketones 3+ H (Negative) Urine Blood 2+ H (Negative) Urine Nitrite Positive A (Negative) Urine Bilirubin Negative (Negative) Urine Urobilinogen Negative (Negative) Ur Leukocyte Esterase 3+ H (Negative) Administered Medications Discontinued Medications Sodium Chloride (Nss 1000ml) 1,000 mls @ 999 mls/hr IV .Q1H1M ONE Stop: 06/04/20 21:14 Last Infusion: 06/04/20 21:48 Dose: 0 mls/hr Documented by: [id number] Admin: 06/04/20 20:35 Dose: 999 mls/hr Documented by: [id number] Imaging Data Attestation: I personally reviewed and interpreted this imaging study as joana polk: My Impression: 1 view the chest x-ray was obtained in the emergency department. My interpretation is haziness on the right middle lung field. Heart size is top normal. Increased bowel pattern was noted in the upper abdomen. There is no free air. Radiologist's Impression: Patient: NAHEED BOWIE (Male) : 41 Status: ER Date: 06/04/20 22:18 Room #: History: [facility] Slices: 113 Priors: Tech: Jeffy Bernal @ [phone] Exams: CT HEAD Contrast: Accession Numbers: [id number] Preliminary Findings Only See Final Report For Complete Findings CT HEAD: No intracranial hemorrhage, mass-effect, or edema. Unchanged ectatic right vertebral artery. Global parenchymal atrophy. Paranasal sinuses and mastoid air cells are clear. No fracture. Radiologist: Titi Campos MD Study ready at 22:22 and initial results transmitted at 22:25 Patient: NAHEED BOWIE (Male) : 41 Status: ER Date: 06/04/20 22:20 Room #: History: AMS COVID POSITIVE PATIENT UNABLE TO OBTAIN MORE OF A HISTORY FROM THE PATIENT Slices: 750 Priors: Tech: Jeffy Bernal @ [phone] Exams: CT ABDOMEN & PELVIS Without Contrast Contrast: Accession Numbers: [id number] Preliminary Findings Only See Final Report For Complete Findings CT ABDOMEN & PELVIS Without Contrast: The bladder is thick walled and trabeculated with numerous diverticula. There is a stone within a right posterior diverticulum measuring 2.5 cm. There is a right inguinal hernia containing the margin of the bladder as well as a few diverticuli containing stones. Nonobstructing nephrolithiasis in the left kidney. Parapelvic cysts in the right kidney. Marked prostatomegaly. Colonic diverticulosis. Cholelithiasis. Groundglass opacity of the right lung base consistent with patient's Covid diagnosis. Large hiatal hernia. Completely intrathoracic stomach. Advanced degenerative changes in the spine. Radiologist: Titi Campos MD Study ready at 22:30 and initial results transmitted at 22:34 Blood Pressure Blood Pressure Findings: Normal blood pressure Discharge Plan Visit Data Chief Complaint: Altered Mental Status Stated Complaint: AMS, PUI ED Provider: Syed Cerda Discharge Problem: Acute pyelonephritis, Fever, Acute alteration in mental status, COVID-19 virus infection Patient Disposition: Being Evaluated by Hospitalist Condition: Good Forms Stand Alone Forms: My [facility] Prescriptions Prescriptions: No Action amlodipine 2.5 mg tablet 2.5 mg PO DAILY RF: 0 amantadine HCl 100 mg capsule 100 mg PO BID Qty: 60 RF: 5 carbidopa-levodopa 25-100 mg tablet 1 tab PO QID RF: 0 acetaminophen 325 mg capsule 650 mg PO Q4H PRN (Reason: Pain) RF: 0 nystatin 100,000 unit/gram Cream 1 applic TOPICAL BID PRN (Reason: AFFECTED SKIN AREA) RF: 0 diphenhydramine HCl [Banophen] 25 mg Tablet 25 mg PO Q6H PRN (Reason: Congestion) RF: 0 docusate sodium 100 mg capsule 100 mg PO DAILY PRN (Reason: constipation) RF: 0 carbamide peroxide [Ear Wax Drops] 6.5 % Drops 5 drp OTIC (EAR) Q12H PRN (Reason: ear wax removal) RF: 0 [facility] - Discharge Problem: Fever Qualifiers: Fever type: unspecified Qualified Code(s): R50.9 - Fever, unspecified
[2020-06-04 20:54] LABS: Basophils # (auto) 0.01 K/uL (0-0.2); Basophils % (auto) 0.2 %; Eosinophils # (auto) 0.01 K/uL (0-0.5); Eosinophils % (auto) 0.2 %; Hematocrit (blood only) 44.6 % (42-52); Hemoglobin 15.2 g/dL (14.0-18.0); Lymphocytes # (auto) 0.32 K/uL (1.2-3.4); Lymphocytes % (auto) 6.8 %; Mean Corpuscular Hemoglobin 29.7 pg (25-34); Mean Corpuscular Hgb Conc 34.1 g/dL (32-36); Mean Corpuscular Volume 87.1 fL (80-100); Monocytes # (auto) 0.33 K/uL (0.11-0.59); Neutrophils # (auto) 4.05 K/uL (1.4-6.5); Neutrophils % (auto) 85.8 %; Platelet Count 139 K/uL (130-400); RDW Coefficient of Variation 13.7 % (11.5-14.5); RDW Standard Deviation 44.2 fL (36.4-46.3); Red Blood Count 5.12 M/uL (4.7-6.1); White Blood Count 4.72 K/uL (4.8-10.8)
[2020-06-04 21:09] LABS: INR 1.1 (0.9-1.1); Partial Thromboplastin Ratio 1.4; Partial Thromboplastin Time 38.9 Seconds (21.0-31.0); Prothrombin Time 11.2 Seconds (9.0-12.0)
[2020-06-04 21:12] LABS: Alanine Aminotransferase 6 U/L (12-78); Albumin Level 2.9 gm/dl (3.4-5.0); Aspartate Aminotransferase 11 U/L (15-37); BUN Creatinine Ratio 30.3 (10-20); Blood Urea Nitrogen 30 mg/dl (7-18); Calcium 8.7 mg/dl (8.5-10.1); Carbon Dioxide 26 mmol/L (21-32); Chloride 105 mmol/L (98-107); Creatinine Clr Calc Pharmacy 57.4 ml/min; Est GFR (African American) 86.5; Est GFR (Non-African American) 74.6; Glucose 106 mg/dl (70-99); Magnesium 1.9 mg/dl (1.8-2.4); Potassium 3.9 mmol/L (3.5-5.1); Sodium 137 mmol/L (136-145)
[2020-06-04 21:17] LABS: Albumin Globulin Ratio 0.7 (0.9-2); Alkaline Phosphatase 64 U/L (45-117); Bilirubin,Total 1.3 mg/dl (0.2-1); Globulin 4.1 gm/dl (2.5-4.0); Troponin I < 0.015 ng/ml (0-0.045)
[2020-06-04 21:21] LABS: Base Excess VBG -0.1 mEq/L; HCO3 VBG 25 mmol/L; PCO2 VBG 41 mmHg (38-50); PO2 VBG 32 mmHg
[2020-06-04 21:37] LABS: Oxygen Saturation VBG < 60.0 %
[2020-06-04 22:37] LABS: Appearance Urine Cloudy (Clear); Bacteria Urine Automated 4+ (Negative); Bilirubin Urine Negative (Negative); Blood Urine 2+ (Negative); Color Urine Dark Yellow; Glucose Urine UA Negative (Negative); Ketones Urine 3+ (Negative); Leukocyte Esterase Urine 3+ (Negative); Nitrite Urine Positive (Negative); Protein Urine 2+ (Negative); Urobilinogen Urine Negative (Negative); WBC Urine Automated >30 /hpf (0-5); pH Urine 6.5 (4.5-7.5)
[2020-06-04] MEDS ORDERED: PIPERACILLIN/TAZOBACTAM 4.5 GM/120 ML BAG IV ONE (22:49)
[2020-06-04] MEDS ORDERED: PIPERACILL/TAZOBAC CONSULT ACTIVE PRN (22:49)
[2020-06-05] MEDS ORDERED: ONDANSETRON INJ 2 MG/ML 2 ML VIAL IV PRN (01:29)
[2020-06-05] MEDS ORDERED: NITROGLYCERIN SL 0.4 MG/TAB TAB SL PRN (01:29)
[2020-06-05] MEDS ORDERED: NYSTATIN CR 15 GM TUBE EXT PRN (01:29)
[2020-06-05] MEDS ORDERED: DOCUSATE SODIUM 100 MG CAP PO PRN (01:29)
[2020-06-05] MEDS ORDERED: diphenhydrAMINE Capsule 25 MG CAP PO PRN (01:39)
--- NOTE | 2020-06-05 01:44 | History and Physical Report ---
DATE OF ADMISSION: 06/05/2020 CHIEF COMPLAINT: Altered mental status. HISTORY OF PRESENT ILLNESS: This 74-year-old male with past medical history significant for BPH, history of retention of urine, history of Parkinson's disease, history of sensorineural hearing loss, bilateral, mild cognitive impairment, history of elevated bilirubin who is an [facility] resident, was brought in because of altered mental status. The patient was diagnosed with COVID-19 virus on May 25, as per nursing staff, he was doing fine, some mild low-grade fevers and some mild congestion, but he did really well with COVID, but today on June 04 morning, he was more confused than usual. He is generally alert and oriented but is more confused and is having spiking temperatures and so they decided to send him to the ER. In the ER, found to have mild leukopenia. His ABG was okay, he was saturating okay on room air. Lactate was 1.2. Troponin was negative. Procalcitonin was also negative. UA was positive for bacteria and leukocyte esterase. He has history of UTIs in the past with pseudomonas. Given his pseudomonas, he was started Zosyn in the ER. As per nursing staff, the patient ambulates with a walker and he does not have teeth and he eats soft food. He cannot eat a sandwich. He did not have any nausea, vomiting, diarrhea or did not complain of any pain. Currently, the patient can tell his name, tell his date of . Thinks that he is in [place], thinks this is June. Denies any headache. He says he has some cough which long term agrees. Denies any phlegm. The patient denies any loss of sense of smell or taste. The patient is hard of hearing. Denies any chest pain. Denies any shortness of breath. Denies any nausea, no abdominal pain. ALLERGIES: No known drug allergies. PAST MEDICAL HISTORY: As mentioned above. PAST SURGICAL HISTORY: Status post appendectomy in September 2019. MEDICATIONS: The patient is on Tylenol 650 mg p.o. q. 4 hours p.r.n., amantadine 100 mg p.o. b.i.d., amlodipine 2.5mg p.o. daily, carbidopa/levodopa 25/100 mg 1 tablet p.o. q.i.d., diphenhydramine 25 mg p.o. q. 6 hours p.r.n., Colace 100 mg p.o. daily p.r.n. Nystatin topical b.i.d. p.r.n. FAMILY HISTORY: Significant for father had brain cancer. Mother has hypertension. SOCIAL HISTORY: Currently living at [facility]. No smoking, no alcohol, no drug use. REVIEW OF SYMPTOMS: As per HPI. Could not get the complete review of symptoms as the patient is somewhat confused. PHYSICAL EXAMINATION: HEENT: No pallor, no icterus. Pupils equal, round, reactive to light, somewhat difficult to open his eyes. Oral mucosa dry. NECK: No JVD, no neck masses seen. CARDIOVASCULAR: S1, S2 heard, regular rate and rhythm, no murmur, no gallop. RESPIRATORY SYSTEM: Normal AP diameter. No accessory muscle use. No wheezing, no crackles. ABDOMEN: Soft, bowel sounds present. Nontender. No distention. CENTRAL NERVOUS SYSTEM: Somewhat drowsy but oriented to name and answers simple questions appropriately. Able to move his extremities. EXTREMITIES: No edema, no erythema. LABORATORY DATA: WBC 4.7, hemoglobin 15.2, hematocrit 44.6, platelets 139. PT 11.2, INR 1.1, APTT 38.9. Venous blood gases, pH of 7.4, pCO2 of 41, pO2 32, bicarbonate 25. Sodium 137, potassium 3.9, chloride 105, bicarbonate 26, BUN 30, creatinine 0.9, serum glucose 106, lactate 1.2, calcium 8.7, magnesium 1.9, total bilirubin 1.3, AST 11, ALT 6, alkaline phosphatase 64. Troponin I less than 0.015. Procalcitonin 0.05. Urinalysis positive for ketones, positive for nitrite or leukocyte esterase. IMAGING: CT of the head, no acute intracranial hemorrhage, mass effect, or edema. Chest x-ray, no acute findings. CT of the abdomen and pelvis preliminary report shows the bladder is thick walled and trabeculated with numerous diverticula, there is stone within the right posterior diverticulum measuring 2.5 cm. There is a right inguinal hernia containing the margins of the bladder as well as a few diverticula containing stones, nonobstructing nephrolithiasis in the left kidney, parapelvic cyst in the right kidney, marked prostatomegaly, colonic diverticulosis, cholelithiasis. Ground-glass opacity of the right lung base concerning the patient's COVID diagnosis, large hiatal hernia, completely intrathoracic stomach. EKG: Normal sinus rhythm, rate of 85, left axis deviation and no significant change was found. ASSESSMENT AND PLAN: This is a 74-year-old male who is an [facility] resident who was diagnosed with COVID on 05/25/2020, comes with altered mental status. 1. Altered mental status. Encephalopathy most likely secondary to urinary tract infection. The patient has history of UTI with pseudomonas UTI in the past. ER started him on IV Zosyn, which he will continue. We will follow the cultures. Gentle fluids. Hemodynamics are stable. Closely monitor in the tele floor. His CT of the head was unremarkable. CT abdomen and pelvis shows large hiatal hernia, will place him on Protonix and also has nonobstructing nephrolithiasis. We will follow the final report of the CAT scan as he has also cholelithiasis. 2. COVID-19 diagnosed on 05/25/2020. As per long term, he was doing fine except for mild congestion and mild low-grade fevers. The patient is saturating okay on room air. We will monitor for now .Will follow the D-dimer. Close monitor. 3. Elevated bilirubin. He has a history of elevated bilirubin as per the [facility]. We will follow the repeat labs. He has cholelithiasis too, will follow the final CAT scan report and consider getting a gallbladder ultrasound. 4. Parkinson's and mild dementia. Continue his home carbidopa/levodopa and amantadine. We will monitor for any delirium. 5. History of hypertension. Continue amlodipine. 6. Nutrition. The patient as per long term does not have teeth and generally eats a soft food. Will currently place the patient on full liquid diet. 7. History of benign prostatic hypertrophy, not on any medications. We will monitor for any urinary retention. 8. Deep venous thrombosis prophylaxis, Lovenox. 9. Disposition: Closely monitor in tele floor. PT and OT prior to discharge. Social service to help with discharge planning. 10. Code status: DNR as per my discussion with his cousin Monty, who seems to be his power of erisa attorney. [facility]
[2020-06-05] MEDS: D5W AND NSS 1,000 ML IV SCH ×2 (02:21→16:10)
[2020-06-05] MEDS ORDERED: PIPERACILLIN/TAZOBACTAM 3.375 GM in DEXTROSE 5% 100 ML IV SCH (04:00)
[2020-06-05] MEDS: PIPERACILLIN/TAZOBACTAM 3.375 GM in DEXTROSE 5% 100 ML IV SCH ×3 (05:34→19:59)
--- NOTE | 2020-06-05 06:57 | CT Scan Report ---
CT head/brain wo con CLINICAL HISTORY: Altered mental status. COMPARISON STUDY: 05/11/2019 TECHNIQUE: Axial CT of the brain is performed from the vertex to the skull base. IV contrast was not administered for this examination. A dose lowering technique was utilized adhering to the principles of ALARA. CT DOSE: 1161.76 mGycm FINDINGS: No intra or extra-axial mass lesions are visualized. There is no CT evidence of acute cortical infarc tion. There is no evidence of midline shift. There is no acute hemorrhage. No calvarial fractures ar e visualized. 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 There is no evidence of pathologic ventricular dilatation. There is no evidence of acute sinusitis There is vertebrobasilar ectasia. IMPRESSION: No acute intracranial findings ACT 112: Negative or not required by law. Electronically signed by: Srinivasan Bertrand M.D. 06/05/2020 6:55 AM
--- NOTE | 2020-06-05 07:00 | XRay Report ---
XR chest 1V portable HISTORY: 74 years-old Male SEPSIS sepsis with acutely altered mental status COMPARISON: Chest radiograph 10/05/2019, CT abdomen and pelvis 06/04/2020 TECHNIQUE: Portable AP view of the chest FINDINGS: Mild cardiomegaly. Moderate hiatal hernia. Subtle right basilar with bilateral patchy lateral midlung airspace opacities. No pneumothorax, pleural effusion or overt pulmonary edema. Degenerative changes of the shoulders and spine. IMPRESSION: 1. Patchy lateral midlung and right basilar opacities are suggestive of multifocal pneumonia. Follow- up imaging to document resolution recommended. 2. Moderate hiatal hernia. 3. Cardiomegaly without overt pulmonary edema. ACT 112: Negative or not required by law. The above report was generated using voice recognition software. It may contain grammatical, syntax o r spelling errors. Electronically signed by: Emanuel Browne M.D. 06/05/2020 6:58 AM
[2020-06-05] MEDS: ENOXAPARIN INJ 40 MG/0.4 ML SYR SQ SCH (07:45)
[2020-06-05] MEDS: CARBIDOPA/LEVODOPA 25/100MG TAB PO SCH ×4 (07:45→20:00)
[2020-06-05] MEDS: amLODIPine BESYLATE 5 MG TAB PO SCH (07:45)
[2020-06-05] MEDS: AMANTADINE HCL 100 MG CAPSULE PO SCH ×2 (07:45→21:35)
--- NOTE | 2020-06-05 08:41 | CT Scan Report ---
ABDOMEN AND PELVIS CT WITHOUT CONTRAST CT DOSE: 922.96 mGycm HISTORY: Acute generalized abdominal pain with altered mental status altered TECHNIQUE: Multiaxial CT images of the abdomen and pelvis were performed without contrast. A dose lo wering technique was utilized adhering to the principles of ALARA. COMPARISON STUDY: CT pelvis 10/05/2019, chest radiograph 06/04/2020, CT abdomen and pelvis 09/23/2018. FINDINGS: Partially imaged groundglass opacity of the subpleural right lower lobe. Mild subsegmental bibasilar atelectasis. Trace right pleural effusion. No pneumatosis or pneumoperitoneum. The study is mildly motion degraded. Moderate cardiomegaly with small pericardial effusion. The spleen is unremarkable. 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 Generalized pancreatic atrophy. Thickening of the adrenal glands s uggests hyperplasia. Cholelithiasis with mild gallbladder distention. No CT evidence of acute cholecy stitis. Hypodensities of the liver measuring up to 4.1 cm are suggestive of probable cysts. Numerous nonobstructing calculi of the left kidney measure up to 6 mm. Areas of cortical thinning and parenchymal scarring of the left kidney are also noted. 4 mm parenchymal calcification of the anteri or inferior pole left kidney. No ureteral calculi or hydronephrosis. Renal sinus cysts of the right k idney are redemonstrated. Marked prostamegaly. Bladder wall thickening and trabeculation with perives icular stranding. Numerous urinary bladder calculi, largest of which measures 2.6 cm and a right post erolateral diverticulum. Moderate right inguinal hernia contains mesenteric fat and a portion of the anterior right urinary bladder with numerous bladder calculi and diverticula. Pelvic basin phlebolith . Calcified plaque of the aorta without aneurysm. No adenopathy. Large hiatal hernia with majority of t he stomach present within the thoracic cavity. There is no bowel obstruction or bowel wall thickening . Colonic diverticulosis without acute diverticulitis. Appendectomy. Soft tissues are unremarkable. D egenerative changes of the pelvis, hips and spine. Chronic changes at L1-L2. IMPRESSION: 1. Partially imaged asymmetric right lung base opacities suggestive of pneumonia. 2. No bowel obstruction or bowel wall thickening. 3. Marked prostamegaly with evidence of chronic bladder outlet obstruction. There are numerous bladde r calculi within several urinary bladder diverticula. 4. Moderate-sized right inguinal hernia contains mesenteric fat and a portion of the urinary bladder. 5. Nonobstructing bilateral nephrolithiasis. 6. Additional findings as above. ACT 112: Negative or not required by law. The above report was generated using voice recognition software. It may contain grammatical, syntax o r spelling errors. Electronically signed by: Emanuel Browne M.D. 06/05/2020 8:39 AM
[2020-06-05 09:15] LABS: Eosinophils # (auto) 0.01 K/uL (0-0.5); Eosinophils % (auto) 0.2 %; Hematocrit (blood only) 43.2 % (42-52); Hemoglobin 14.7 g/dL (14.0-18.0); Immature Granulocytes # (auto) 0.02 K/uL (0.00-0.02); Immature Granulocytes % (auto) 0.4 %; Lymphocytes # (auto) 0.61 K/uL (1.2-3.4); Mean Corpuscular Hemoglobin 29.5 pg (25-34); Mean Corpuscular Volume 86.7 fL (80-100); Mean Platelet Volume 9.5 fL (7.4-10.4); Monocytes # (auto) 0.45 K/uL (0.11-0.59); Monocytes % (auto) 8.1 %; Neutrophils # (auto) 4.48 K/uL (1.4-6.5); Neutrophils % (auto) 80.3 %; Platelet Count 153 K/uL (130-400); RDW Coefficient of Variation 13.8 % (11.5-14.5); RDW Standard Deviation 43.6 fL (36.4-46.3); Red Blood Count 4.98 M/uL (4.7-6.1); White Blood Count 5.57 K/uL (4.8-10.8)
[2020-06-05 09:40] LABS: BUN Creatinine Ratio 27.4 (10-20); Calcium 8.6 mg/dl (8.5-10.1); Creatinine Clr Calc Pharmacy 69.5 ml/min; Est GFR (African American) 100.1; Est GFR (Non-African American) 86.3; Magnesium 1.9 mg/dl (1.8-2.4); Potassium 3.6 mmol/L (3.5-5.1)
[2020-06-05 09:51] LABS: D Dimer 550 ug/L FEU (0-500)
[2020-06-05] MEDS: PANTOprazole 40 MG in SYRINGE 0 ML IV SCH (11:59)
--- NOTE | 2020-06-05 12:48 | Electrocardiogram Report ---
Test Reason : Blood Pressure : / mmHG Vent. Rate : 085 BPM Atrial Rate : 085 BPM P-R Int : 168 ms QRS Dur : 096 ms QT Int : 350 ms P-R-T Axes : 038 -49 039 degrees QTc Int : 416 ms Poor data quality, interpretation may be adversely affected Normal sinus rhythm Left axis deviation Poor R wave progression, consider anterior NC vs. lead placement vs. LVH Nonspecific T wave abnormality Lateral leads Abnormal ECG When compared with ECG of 05-OCT-2019 11:12, No significant change was found Confirmed by Bennie Stark ([id number]) on 06/05/2020 12:48:38 PM Referred By: REFERRED SELF Confirmed By:Bennie Stark
--- NOTE | 2020-06-05 21:46 | Hospitalist Progress Note ---
Date of Service June 05, 2020 Assessment & Plan (1) Acute alteration in mental status: Presented with change of mental status. CT head showed old stroke, age-related changes, no acute findings. Probable toxic / metabolic encephalopathy (delirium) secondary to COVID-19 and / or UTI. (2) COVID-19 virus infection: Outbreak of COVID-19 at pt's personal [facility]. Patient had + PCR 05/24. Chest x-ray shows bilateral infiltrates consistent with COVID-19 pneumonia. Monitor closely for progression of pulmonary disease. Encephalopathy may be secondary to COVID-19. (3) Urinary tract infection: Continue piperacillin / tazo pending culture results. (4) Dementia: Continue amantadine. Ongoing monitoring for delirium. Avoid meds with anticholinergic effects whenever possible. (5) Parkinsons disease: Continue usual meds. (6) DVT prophylaxis: SQ enoxaparin. (7) Discharge planning issues: Discharge disposition to be determined. Admission and Anticipated Discharge Date Admission Date: June 05, 2020 Subjective Recheck for COVID-19, UTI, and other problems. Patient seen in their room around 1100. Admitted early this morning for altered mental status. Recently diagnosed with COVID-19. Confused and lethargic at time of my assessment. No fever last night. Nursing reports incontinence of urine. Review of Systems: Unable to obtain due to patient's condition. Physical Exam Constitutional: + ill appearing Respiratory: no respiratory distress Auscultation: lungs clear to auscultation bilaterally Cardiovascular: Rate/Rhythm: regular rate and regular rhythm Vessels: no JVD Extremities: no calf tenderness and no edema Gastrointestinal (Abdomen): normal bowel sounds, soft, nontender, no hepatosplenomegaly Musculoskeletal: Extremities: no cyanosis Skin: no rashes, warm and dry Psychiatric: Orientation: + not alert and + not oriented x 3 Results & Data Results & Data ([facility]) Vital Signs (Past 12 Hours) Vital Signs Temp Pulse Resp BP BP Pulse Ox 06/05/20 19:18 37.1 C 71 18 150/81 H 94 06/05/20 15:18 37.6 C H 76 24 134/62 94 06/05/20 12:00 36.7 C 82 18 153/93 H 93 Laboratory Results Laboratory Results - last 24 hr 06/04/20 06/04/20 06/04/20 20:31 21:09 21:09 WBC RBC Hgb Hct MCV MCH MCHC RDW Std Deviation RDW Coeff of Kayley Plt Count MPV Immature Gran % (Auto) Neut % (Auto) Lymph % (Auto) [place] % (Auto) Eos % (Auto) Baso % (Auto) Neut # (Auto) Lymph # (Auto) [place] # (Auto) Eos # (Auto) Baso # (Auto) Immature Gran # (Auto) D-Dimer VBG pH 7.40 VBG pCO2 41 VBG pO2 32 VBG HCO3 25 VBG O2 Saturation < 60.0 VBG Base Excess -0.1 Barometric Pressure 738.5 Sodium Potassium Chloride Carbon Dioxide Anion Gap BUN Creatinine Est Cr Clr Drug Dosing Est GFR ( Amer) Est GFR (Non-Af Amer) BUN/Creatinine Ratio Glucose Lactate 1.2 Calcium Magnesium Procalcitonin 0.05 Urine Color Urine Appearance Urine pH Ur Specific [place] Urine Protein Urine Glucose (UA) Urine Ketones Urine Blood Urine Nitrite Urine Bilirubin Urine Urobilinogen Ur Leukocyte Esterase Urine WBC (Auto) Urine RBC (Auto) U Hyaline Cast (Auto) U Epithel Cells (Auto) Urine Bacteria (Auto) Urine Yeast Nasal Screen MRSA (PCR) COVID-19 Eval Order SARS-CoV-2, RNA, NAAT 06/04/20 06/05/20 06/05/20 22:23 08:18 08:18 WBC 5.57 RBC 4.98 Hgb 14.7 Hct 43.2 MCV 86.7 MCH 29.5 MCHC 34.0 RDW Std Deviation 43.6 RDW Coeff of Kayley 13.8 Plt Count 153 MPV 9.5 Immature Gran % (Auto) 0.4 Neut % (Auto) 80.3 Lymph % (Auto) 11.0 [place] % (Auto) 8.1 Eos % (Auto) 0.2 Baso % (Auto) 0.0 Neut # (Auto) 4.48 Lymph # (Auto) 0.61 L [place] # (Auto) 0.45 Eos # (Auto) 0.01 Baso # (Auto) 0.00 Immature Gran # (Auto) 0.02 D-Dimer VBG pH VBG pCO2 VBG pO2 VBG HCO3 VBG O2 Saturation VBG Base Excess Barometric Pressure Sodium 139 Potassium 3.6 Chloride 107 Carbon Dioxide 23 Anion Gap 9.0 BUN 22 H Creatinine 0.81 Est Cr Clr Drug Dosing 69.5 Est GFR ( Amer) 100.1 Est GFR (Non-Af Amer) 86.3 BUN/Creatinine Ratio 27.4 H Glucose 98 Lactate Calcium 8.6 Magnesium 1.9 Procalcitonin Urine Color Dark Yellow Urine Appearance Cloudy A Urine pH 6.5 Ur Specific [place] 1.020 Urine Protein 2+ H Urine Glucose (UA) Negative Urine Ketones 3+ H Urine Blood 2+ H Urine Nitrite Positive A Urine Bilirubin Negative Urine Urobilinogen Negative Ur Leukocyte Esterase 3+ H Urine WBC (Auto) >30 H Urine RBC (Auto) 10-30 H U Hyaline Cast (Auto) 1-5 U Epithel Cells (Auto) 10-20 H Urine Bacteria (Auto) 4+ H Urine Yeast Not Reportable Nasal Screen MRSA (PCR) COVID-19 Eval Order SARS-CoV-2, RNA, NAAT 06/05/20 06/05/20 06/05/20 08:18 18:49 18:49 WBC RBC Hgb Hct MCV MCH MCHC RDW Std Deviation RDW Coeff of Kayley Plt Count MPV Immature Gran % (Auto) Neut % (Auto) Lymph % (Auto) [place] % (Auto) Eos % (Auto) Baso % (Auto) Neut # (Auto) Lymph # (Auto) [place] # (Auto) Eos # (Auto) Baso # (Auto) Immature Gran # (Auto) D-Dimer 550 H* VBG pH VBG pCO2 VBG pO2 VBG HCO3 VBG O2 Saturation VBG Base Excess Barometric Pressure Sodium Potassium Chloride Carbon Dioxide Anion Gap BUN Creatinine Est Cr Clr Drug Dosing Est GFR ( Amer) Est GFR (Non-Af Amer) BUN/Creatinine Ratio Glucose Lactate Calcium Magnesium Procalcitonin Urine Color Urine Appearance Urine pH Ur Specific [place] Urine Protein Urine Glucose (UA) Urine Ketones Urine Blood Urine Nitrite Urine Bilirubin Urine Urobilinogen Ur Leukocyte Esterase Urine WBC (Auto) Urine RBC (Auto) U Hyaline Cast (Auto) U Epithel Cells (Auto) Urine Bacteria (Auto) Urine Yeast Nasal Screen MRSA (PCR) COVID-19 Eval [facility] SARS-CoV-2, RNA, NAAT POSITIVE A* 06/05/20 Unknown WBC RBC Hgb Hct MCV MCH MCHC RDW Std Deviation RDW Coeff of Kayley Plt Count MPV Immature Gran % (Auto) Neut % (Auto) Lymph % (Auto) [place] % (Auto) Eos % (Auto) Baso % (Auto) Neut # (Auto) Lymph # (Auto) [place] # (Auto) Eos # (Auto) Baso # (Auto) Immature Gran # (Auto) D-Dimer VBG pH VBG pCO2 VBG pO2 VBG HCO3 VBG O2 Saturation VBG Base Excess Barometric Pressure Sodium Potassium Chloride Carbon Dioxide Anion Gap BUN Creatinine Est Cr Clr Drug Dosing Est GFR ( Amer) Est GFR (Non-Af Amer) BUN/Creatinine Ratio Glucose Lactate Calcium Magnesium Procalcitonin Urine Color Urine Appearance Urine pH Ur Specific [place] Urine Protein Urine Glucose (UA) Urine Ketones Urine Blood Urine Nitrite Urine Bilirubin Urine Urobilinogen Ur Leukocyte Esterase Urine WBC (Auto) Urine RBC (Auto) U Hyaline Cast (Auto) U Epithel Cells (Auto) Urine Bacteria (Auto) Urine Yeast Nasal Screen MRSA (PCR) Negative COVID-19 Eval Order SARS-CoV-2, RNA, NAAT
[2020-06-06] MEDS: D5W AND NSS 1,000 ML IV SCH ×2 (03:36→17:08)
[2020-06-06] MEDS: PIPERACILLIN/TAZOBACTAM 3.375 GM in DEXTROSE 5% 100 ML IV SCH ×3 (03:36→21:11)
[2020-06-06] MEDS: ACETAMINOPHEN 325 MG TAB PO PRN ×2 (06:39→19:45)
[2020-06-06 07:52] LABS: BUN Creatinine Ratio 20.6 (10-20); C Reactive Protein 10.2 mg/dl (0-0.29); Calcium 7.9 mg/dl (8.5-10.1); Creatinine Clr Calc Pharmacy 66.9 ml/min; Est GFR (African American) 99.1; Est GFR (Non-African American) 85.5; Potassium 3.3 mmol/L (3.5-5.1)
[2020-06-06] MEDS: ENOXAPARIN INJ 40 MG/0.4 ML SYR SQ SCH (09:20)
[2020-06-06] MEDS: AMANTADINE HCL 100 MG CAPSULE PO SCH ×2 (09:21→21:18)
[2020-06-06] MEDS: amLODIPine BESYLATE 5 MG TAB PO SCH (09:21)
[2020-06-06] MEDS: CARBIDOPA/LEVODOPA 25/100MG TAB PO SCH ×4 (09:21→21:12)
[2020-06-06] MEDS ORDERED: VANCOMYCIN CONSULT ACTIVE PRN (10:52)
[2020-06-06] MEDS ORDERED: POTASSIUM CHLORIDE PWD 20 MEQ PACK PO ONE (10:52)
[2020-06-06] MEDS ORDERED: VANCOMYCIN HCL 1,500 MG in SODIUM CHLORIDE 0.9% 500 ML IV ONE (11:15)
[2020-06-06] MEDS: PANTOprazole 40 MG in SYRINGE 0 ML IV SCH (11:55)
--- NOTE | 2020-06-06 13:30 | Pharmacy Report ---
Pharmacy Abx Initial Consult - Date of Service June 06, 2020 - Pharmacy Dosing Scope Date of Consult: 06/06/20 Consultation requested by: Dr. Perez Pharmacy is consulted to initiate Vancomycin + Zosyn IV dosing therapy, order appropriate labs and adjust drug dose/frequency. - Subjective The patient is a 74 year old M admitted on 06/05/20 00:19. - Objective Height: 5 ft 8 in Weight: 62.5 kg Vital Signs (Past 12hrs): Vital Signs Temp Pulse Resp BP Pulse Ox 06/06/20 11:41 36.6 C 50 L 15 117/65 93 06/06/20 07:27 38.0 C H 72 18 158/96 H 95 06/06/20 04:02 38.1 C H 83 18 163/82 H 93 Lab Results (24hrs): Laboratory Tests (24 Hours) 06/06/20 06:27 Creatinine 0.83 Est Cr Clr Drug Dosing 66.9 C-Reactive Protein 10.20 H - Risk Factors for Resistance * Resident in a fdc or extended-care facility * History of infection with a multidrug-resistant organism: pseudomonas UTI - Assessment & Plan Assessment 74 year old M initiated on IV Vancomycin for UTI Urine is growing Staph sp, ID & sens pending. Renal function stable Patient meets criteria for vancomycin AUC dosing nomogram AUC/KAI is the preferred PK/PD target for vancomycin * Target AUC/KAI = 400-600 * AUC guided dosing is effective and associated with decreased risk of nephrotoxicity Plan Vancomycin + Zosyn for treatment of UTI Vancomycin IV * AUC dosing nomogram based on weight and crcl * Loading dose: 1500 mg (25 mg/kg) * Maintenance dose: 1000 mg IV ( 16 mg/kg) every 12 hours * Goal trough level for UTI : 10 to 20 mcg/mL depending on c/s * Trough level ordered for 06/08/20 @ 0930 Piperacillin/tazobactam (started 06/05) * 4.5g bolus administered over 30 minutes, then 3.375 g IV extended infusion every 8 hours for CrCl greater than 20 mL/min Pharmacy will continue to follow and will adjust dose/frequency as necessary. Thank you.
[2020-06-06] MEDS: VANCOMYCIN HCL 1,000 MG in SODIUM CHLORIDE 0.9% 250 ML IV SCH (21:16)
--- NOTE | 2020-06-06 23:48 | Hospitalist Progress Note ---
Date of Service June 06, 2020 Assessment & Plan (1) Acute alteration in mental status: Presented with change of mental status. CT head showed old stroke, age-related changes, no acute findings. Probable toxic / metabolic encephalopathy (delirium) secondary to COVID-19 and / or UTI. Mental status improved. (2) COVID-19 virus infection: Outbreak of COVID-19 at pt's personal sn[facility]. Patient had + PCR 05/24. Repeat SARS-CoV-2 PCR positive 06/05. Chest x-ray shows bilateral infiltrates consistent with COVID-19 pneumonia. Oxygenating well on RA. No indication for COVID-specific therapies. Monitor closely for progression of pulmonary disease. Encephalopathy may be secondary to COVID-19. Recheck PCR's every few days with hopes of discontinuation of isolation precautions. (3) Urinary tract infection: UTI, complicated, present on admission. Urine culture growing Staph sp. Start IV vancomycin. Continue piperacillin / tazo pending final culture results. CT demonstrated enlarged prostate, trabeculation of bladder, bladder calculi. Discussed with Urology. Ulrich catheter recommended. Should have 10-14 day course of therapy due to bladder calculi. (4) Bladder calculi: F/U with Urology. (5) Urinary retention: Chronic urinary retention with CT changes as noted. Discussed with Urology. Ulrich catheter recommended. (6) Inguinal hernia: Right inguinal hernia noted on CT. Hernia contains mesenteric fat and portion of urinary bladder. May need nonemergent repair once COVID status permits. Surgical consultation pending. (7) Dementia: Ongoing monitoring for delirium. Avoid meds with anticholinergic effects whenever possible. (8) Parkinsons disease: PT / OT evals. Continue carbidopa / levodopa and amantadine. (9) DVT prophylaxis: SQ enoxaparin. (10) Discharge planning issues: Discharge disposition to be determined. Medical follow-up with Dr. Adams at [facility]. Urology follow-up with [facility] in about 2 weeks, once COVID-19 status permits. Admission and Anticipated Discharge Date Admission Date: June 05, 2020 Subjective Recheck for COVID-19, UTI, and other problems. Patient seen in their room around 1500. More alert. Weak. Intermittent fevers. Review of Systems: Constitutional- as noted above. Cardiac- no chest pain. Pulmonary- no cough or SOB. GI- no nausea, vomiting, diarrhea, melena, hematochezia. - incontinent of urine; has condom catheter. Otherwise, as noted above. Physical Exam Constitutional: + ill appearing Respiratory: no respiratory distress Auscultation: lungs clear to auscultation bilaterally Cardiovascular: Rate/Rhythm: regular rate and regular rhythm Vessels: no JVD Extremities: no calf tenderness and no edema Gastrointestinal (Abdomen): normal bowel sounds, soft, nontender, no hepatosplenomegaly Musculoskeletal: Extremities: no cyanosis Skin: no rashes, warm and dry Neurologic: masked facies; cogwheel rigidity of upper extremities Psychiatric: Orientation: alert and oriented x 3 (oriented to person, place, year, but not president) Results & Data Results & Data ([facility]) Vital Signs (Past 12 Hours) Vital Signs Temp Pulse Pulse Resp BP BP Pulse Ox 06/06/20 21:10 37.6 C H 06/06/20 19:26 38.0 C H 70 152/81 H 92 06/06/20 16:00 56 L 06/06/20 15:49 37.6 C H 54 L 18 153/71 H 95 Laboratory Results Laboratory Results - last 24 hr 06/06/20 06:27 Sodium 140 Potassium 3.3 L Chloride 109 H Carbon Dioxide 25 Anion Gap 5.0 BUN 17 Creatinine 0.83 Est Cr Clr Drug Dosing 66.9 Est GFR ( Amer) 99.1 Est GFR (Non-Af Amer) 85.5 BUN/Creatinine Ratio 20.6 H Glucose 123 H Calcium 7.9 L C-Reactive Protein 10.20 H
[2020-06-07] MEDS: PIPERACILLIN/TAZOBACTAM 3.375 GM in DEXTROSE 5% 100 ML IV SCH ×3 (04:29→21:21)
[2020-06-07] MEDS: D5W AND NSS 1,000 ML IV SCH ×2 (07:10→21:21)
[2020-06-07] MEDS: CARBIDOPA/LEVODOPA 25/100MG TAB PO SCH ×4 (08:08→20:15)
[2020-06-07] MEDS: ENOXAPARIN INJ 40 MG/0.4 ML SYR SQ SCH (08:08)
[2020-06-07] MEDS: AMANTADINE HCL 100 MG CAPSULE PO SCH ×2 (08:08→20:16)
[2020-06-07] MEDS: amLODIPine BESYLATE 5 MG TAB PO SCH (08:09)
[2020-06-07 09:00] LABS: BUN Creatinine Ratio 18.6 (10-20); Calcium 8.2 mg/dl (8.5-10.1); Creatinine Clr Calc Pharmacy 70.3 ml/min; Est GFR (African American) 101.1; Est GFR (Non-African American) 87.2; Potassium 3.1 mmol/L (3.5-5.1)
[2020-06-07] MEDS ORDERED: POTASSIUM CHLORIDE 20 MEQ TABCR PO ONE (09:15)
[2020-06-07] MEDS: VANCOMYCIN HCL 1,000 MG in SODIUM CHLORIDE 0.9% 250 ML IV SCH ×2 (09:39→22:21)
[2020-06-07] MEDS: PANTOprazole 40 MG in SYRINGE 0 ML IV SCH (12:32)
--- NOTE | 2020-06-07 19:31 | Hospitalist Progress Note ---
Date of Service June 07, 2020 Assessment & Plan (1) Acute alteration in mental status: Possible related to toxic / metabolic encephalopathy (delirium) secondary to COVID-19 and / or UTI. CT head showed no acute intracranial abnormality. Old stroke, age-related changes. Clinically improved (2) COVID-19 virus infection: Outbreak of COVID-19 at pt's personal [facility] living. Patient had + PCR 05/24. Repeat SARS-CoV-2 PCR positive 06/05. Chest x-ray shows bilateral infiltrates consistent with COVID-19 pneumonia. No indication for COVID-specific therapies. Monitor closely for progression of pulmonary disease. Will check COVID PCR in the next few days and if we get 2 negative test within 24hr, will d/c isolation (3) Urinary tract infection: UTI, complicated, present on admission. Urine culture growing Staph sp. Continue IV vancomycin and Zosyn CT demonstrated enlarged prostate, trabeculation of bladder, bladder calculi. Should have 10-14 day course of therapy due to bladder calculi. (4) Bladder calculi: (5) Urinary retention: CT demonstrated enlarged prostate, trabeculation of bladder, bladder calculi. Previous hospitalist discussed case with urology Continue adams catheter as per urology Will need outpatient follow up with urolgy (6) Inguinal hernia: Right inguinal hernia noted on CT. Hernia contains mesenteric fat and portion of urinary bladder. May need nonemergent repair once COVID status permits. Surgical consultation pending. (7) Dementia: Ongoing monitoring for delirium. Avoid meds with anticholinergic effects whenever possible. (8) Parkinsons disease: PT / OT evals. Continue carbidopa / levodopa and amantadine. (9) DVT prophylaxis: SQ enoxaparin. (10) Discharge planning issues: Discharge disposition to be determined. Medical follow-up with Dr. Adams at [facility]. Urology follow-up with [facility] in about 2 weeks, once COVID-19 status permits. Admission and Anticipated Discharge Date Admission Date: June 05, 2020 Subjective Pt was seen and examined Lying in bed with no distress Pt said that he feels ok He said that he feels congested He said that his breathing is getting better Denies any chest pain, palpitation, dizziness, fever and SOB Physical Exam Physical Exam: General- No acute distress Head- atraumatic Eyes- PERRL, EOMI, ENT- oropharynx clear Neck- supple, no JVD Lungs- clear to auscultation Heart- regular rhythm; no murmur Abdomen- normal bowel sounds, soft, nontender Extremities- no calf tenderness Neuro- alert, oriented x 3; PERRL, EOMI; no facial palsy; no dysarthria Skin- warm & dry Results & Data Results & Data ([facility]) Vital Signs (Past 12 Hours) Vital Signs Temp Pulse Pulse Resp BP Pulse Ox 06/07/20 19:12 36.9 C 67 24 152/88 H 95 06/07/20 16:04 64 06/07/20 15:33 36.8 C 58 L 32 H 156/86 H 95 06/07/20 12:40 36.5 C 75 18 125/72 95 06/07/20 08:46 37.3 C 54 L 20 162/72 H 93
[2020-06-08] MEDS: PIPERACILLIN/TAZOBACTAM 3.375 GM in DEXTROSE 5% 100 ML IV SCH ×3 (04:13→20:08)
[2020-06-08] MEDS: ENOXAPARIN INJ 40 MG/0.4 ML SYR SQ SCH (07:51)
[2020-06-08] MEDS: CARBIDOPA/LEVODOPA 25/100MG TAB PO SCH ×4 (07:52→20:08)
[2020-06-08] MEDS: AMANTADINE HCL 100 MG CAPSULE PO SCH ×2 (07:52→20:08)
[2020-06-08] MEDS: amLODIPine BESYLATE 5 MG TAB PO SCH (07:52)
[2020-06-08] MEDS ORDERED: VANCOMYCIN TROUGH ONE (09:30)
[2020-06-08] MEDS: VANCOMYCIN HCL 1,000 MG in SODIUM CHLORIDE 0.9% 250 ML IV SCH ×2 (09:49→20:08)
[2020-06-08] MEDS: PANTOprazole 40 MG in SYRINGE 0 ML IV SCH (11:05)
[2020-06-08 11:20] LABS: Calcium 8.7 mg/dl (8.5-10.1); Creatinine Clr Calc Pharmacy 50.5 ml/min; Est GFR (African American) 74.4; Est GFR (Non-African American) 64.2; Potassium 3.4 mmol/L (3.5-5.1)
--- NOTE | 2020-06-08 19:32 | Hospitalist Progress Note ---
Date of Service June 08, 2020 Assessment & Plan (1) Acute alteration in mental status: Possible related to toxic / metabolic encephalopathy (delirium) secondary to COVID-19 and / or UTI. CT head showed no acute intracranial abnormality. Old stroke, age-related changes. Clinically improved (2) COVID-19 virus infection: Pneumonia Outbreak of COVID-19 at pt's personal long term. Patient had + PCR 05/24. Repeat SARS-CoV-2 PCR positive 06/05. Chest x-ray shows bilateral infiltrates consistent with COVID-19 pneumonia. No indication for COVID-specific therapies. Monitor closely for progression of pulmonary disease. Will check COVID PCR in the next few days and if we get 2 negative test within 24hr, will d/c isolation Will continue IV abx for now Saturated well on RA (3) Urinary tract infection: UTI, complicated, present on admission. Urine culture growing Staph sp. Continue IV vancomycin for now, will transition to PO CT demonstrated enlarged prostate, trabeculation of bladder, bladder calculi. Should have 10-14 day course of therapy due to bladder calculi. (4) Bladder calculi: F/U with Urology. (5) Urinary retention: CT demonstrated enlarged prostate, trabeculation of bladder, bladder calculi. Previous hospitalist discussed case with urology Continue adams catheter as per urology Will need outpatient follow up with urolgy (6) Inguinal hernia: Right inguinal hernia noted on CT. Hernia contains mesenteric fat and portion of urinary bladder. May need nonemergent repair once COVID status permits. Surgical consultation pending. (7) Dementia: Ongoing monitoring for delirium. Avoid meds with anticholinergic effects whenever possible. (8) Parkinsons disease: PT / OT evals. Continue carbidopa / levodopa and amantadine. (9) DVT prophylaxis: SQ enoxaparin. (10) Discharge planning issues: Discharge disposition to be determined. Medical follow-up with Dr. Adams at [facility]. [place] [facility] [place] 2 [place], once COVID-19 status permits. Admission and Anticipated Discharge Date Admission Date: June 05, 2020 Subjective Pt was seen and examined Lying in bed with no distress Pt said that his breathing is ok He stopped coughing and saturated well on RA Physical Exam Physical Exam: General- No acute distress Head- atraumatic Eyes- PERRL, EOMI, ENT- oropharynx clear Neck- supple, no JVD Lungs- clear to auscultation Heart- regular rhythm; no murmur Abdomen- normal bowel sounds, soft, nontender Extremities- no calf tenderness Neuro- alert, oriented x 3; PERRL, EOMI; no facial palsy; no dysarthria Skin- warm & dry Results & Data Results & Data ([facility]) Vital Signs (Past 12 Hours) Vital Signs Temp Pulse Resp BP Pulse Ox 06/08/20 19:20 37.1 C 56 L 18 145/71 H 94 06/08/20 15:30 37.3 C 54 L 18 163/80 H 93 06/08/20 11:35 37.1 C 68 18 144/80 H 92 06/08/20 08:46 36.6 C 56 L 18 148/72 H 94
--- NOTE | 2020-06-08 22:29 | Pharmacy Report ---
Pharmacy Abx Dose Short Note - Date of Service June 08, 2020 - Assessment & Plan Assessment 74 year old M receiving Vancomycin and Zosyn for treatment of COVID-19 pneumonia and UTI * Day #3 of antimicrobial therapy. Patient has been afebrile x 48 hours. No leukocytosis. * Significant increase in SCr from 0.79 --> 1.11, estimated CrCl now ~ 50 mL/min. However, UO best it's been since admission. * Maintaining oxygen saturations on room air currently. * Urine culture grew MSSA. MRSA nasal swab is negative. Plan Vancomycin * Trough level of 38.5 mcg/mL is inaccurate. * [facility] did not enter vanc trough order that serves to remind the RN on the eMAR * RN administered 2200 vancomycin dose at 2007 so bag was 2/3rd's administered when trough was drawn at 2130. 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 * At this time, both antibiotics have been placed on hold. * I will order a trough level for 0930 in the event that vancomycin is continued in the morning. Pharmacy will continue to follow and will adjust dose/frequency as necessary. Thank you.
[2020-06-09] MEDS ORDERED: VANCOMYCIN TROUGH ONE (09:30)
[2020-06-09] MEDS: AMANTADINE HCL 100 MG CAPSULE PO SCH (10:41)
[2020-06-09] MEDS: CARBIDOPA/LEVODOPA 25/100MG TAB PO SCH ×4 (10:42→19:55)
[2020-06-09] MEDS: amLODIPine BESYLATE 5 MG TAB PO SCH (10:42)
[2020-06-09] MEDS: ENOXAPARIN INJ 40 MG/0.4 ML SYR SQ SCH (10:43)
[2020-06-09] MEDS: PANTOprazole 40 MG in SYRINGE 0 ML IV SCH (11:16)
[2020-06-09] MEDS: VANCOMYCIN HCL 1,000 MG in SODIUM CHLORIDE 0.9% 250 ML IV SCH ×2 (11:16→23:36)
[2020-06-09 11:21] LABS: BUN Creatinine Ratio 10.9 (10-20); Calcium 8.5 mg/dl (8.5-10.1); Creatinine Clr Calc Pharmacy 43.1 ml/min; Est GFR (African American) 62.6; Potassium 3.2 mmol/L (3.5-5.1)
[2020-06-09 11:25] LABS: Creatinine Clr Calc Pharmacy 43.8 ml/min; Est GFR (African American) 63.8
[2020-06-09] MEDS: PIPERACILLIN/TAZOBACTAM 3.375 GM in DEXTROSE 5% 100 ML IV SCH ×2 (13:35→19:53)
--- NOTE | 2020-06-09 14:02 | Pharmacy Report ---
Pharmacy Abx Dose Short Note - Date of Service June 09, 2020 - Assessment & Plan Assessment 74 year old M receiving Vancomycin and Zosyn for treatment of COVID-19 pneumonia and UTI Plan Vancomycin * Trough level came back therapeutic at ~17 mcg/ml (goal 15-20 mcg/ml), previous dose given slightly early therefore true level likely closer to ~20 mcg/ml * Renal function slight bump from days prior * Continue same dosing of vancomycin for now - may need to recheck level soon though if plan is to continue Pharmacy will continue to follow and will adjust dose/frequency as necessary. Thank you.
[2020-06-09] MEDS ORDERED: POTASSIUM CHLORIDE 20 MEQ TABCR PO STA (14:32)
--- NOTE | 2020-06-09 21:00 | Hospitalist Progress Note ---
Date of Service June 09, 2020 Assessment & Plan (1) Acute alteration in mental status: Possible related to toxic / metabolic encephalopathy (delirium) secondary to COVID-19 and / or UTI. CT head showed no acute intracranial abnormality. Old stroke, age-related changes. Clinically improved (2) COVID-19 virus infection: Pneumonia Outbreak of COVID-19 at pt's personal retirement. Patient had + PCR 05/24. Repeat SARS-CoV-2 PCR positive 06/05. Chest x-ray shows bilateral infiltrates consistent with COVID-19 pneumonia. No indication for COVID-specific therapies. Monitor closely for progression of pulmonary disease. Will check COVID PCR in the next few days and if we get 2 negative test within 24hr, will d/c isolation Will continue IV abx with Zosyn for now Saturated well on RA (3) Urinary tract infection: UTI, complicated, present on admission. Urine culture growing Staph sp. Continue IV vancomycin for now, will transition to Case discussed with ID (No official consult placed) recommended Macrobid or Bactrim to complete a total of 10 days course of abx CT demonstrated enlarged prostate, trabeculation of bladder, bladder calculi. Should have 10-14 day course of therapy due to bladder calculi. (4) Bladder calculi: F/U with Urology. (5) Urinary retention: CT demonstrated enlarged prostate, trabeculation of bladder, bladder calculi. Previous hospitalist discussed case with urology Continue adams catheter as per urology Will need outpatient follow up with urolgy (6) Inguinal hernia: Right inguinal hernia noted on CT. Hernia contains mesenteric fat and portion of urinary bladder. May need nonemergent repair once COVID status permits. Outpatient surgical follow (7) Dementia: Ongoing monitoring for delirium. Avoid meds with anticholinergic effects whenever possible. (8) Parkinsons disease: PT / OT evals. Continue carbidopa / levodopa and amantadine. (9) DVT prophylaxis: SQ enoxaparin. (10) Discharge planning issues: Discharge disposition to be determined. Medical follow-up with Dr. Adams at [facility]. [facility] once COVID-19 status permits. Admission and Anticipated Discharge Date Admission Date: June 05, 2020 Subjective Pt was seen and examined Lying in bed with no distress. Looks comfortable Denies any new complaint Physical Exam Physical Exam: General- No acute distress Head- atraumatic Eyes- PERRL, EOMI, ENT- oropharynx clear Neck- supple, no JVD Lungs- clear to auscultation Heart- regular rhythm; no murmur Abdomen- normal bowel sounds, soft, nontender Extremities- no calf tenderness Neuro- alert, oriented x 3; PERRL, EOMI; no facial palsy; no dysarthria Skin- warm & dry Results & Data Results & Data ([facility]) Vital Signs (Past 12 Hours) Vital Signs Temp Pulse Resp BP Pulse Ox 06/09/20 15:58 37.4 C 83 20 119/73 94 06/09/20 12:00 37.0 C 90 18 133/68 93
[2020-06-10] MEDS: PIPERACILLIN/TAZOBACTAM 3.375 GM in DEXTROSE 5% 100 ML IV SCH (04:14)
[2020-06-10 08:13] LABS: Creatinine Clr Calc Pharmacy 19.9 ml/min; Est GFR (African American) 25.1; Est GFR (Non-African American) 21.6
[2020-06-10] MEDS ORDERED: [UNRECOGNIZED DRUG - REMARK] PRN (08:48)
[2020-06-10] MEDS ORDERED: POTASSIUM CHLORIDE 20 MEQ TABCR PO STA (08:48)
[2020-06-10] MEDS: ENOXAPARIN INJ 40 MG/0.4 ML SYR SQ SCH (09:35)
[2020-06-10] MEDS: amLODIPine BESYLATE 5 MG TAB PO SCH (09:35)
[2020-06-10] MEDS: CARBIDOPA/LEVODOPA 25/100MG TAB PO SCH ×4 (09:37→19:45)
[2020-06-10] MEDS: PANTOprazole 40 MG TAB PO SCH (09:37)
[2020-06-10] MEDS: AMANTADINE HCL 100 MG CAPSULE PO SCH (09:37)
[2020-06-10] MEDS: NSS + 20MEQ KCL 20 MEQ/1,000 ML BAG IV SCH ×2 (09:59→21:59)
[2020-06-10 10:39] LABS: Potassium 3.7 mmol/L (3.5-5.1)
[2020-06-10] MEDS ORDERED: VANCOMYCIN TROUGH ONE (11:30)
--- NOTE | 2020-06-10 16:52 | Hospitalist Progress Note ---
Date of Service June 10, 2020 Assessment & Plan (1) Acute alteration in mental status: Possible related to toxic / metabolic encephalopathy (delirium) secondary to COVID-19 and / or UTI. CT head showed no acute intracranial abnormality. Old stroke, age-related changes. Clinically improved (2) COVID-19 virus infection: Pneumonia Outbreak of COVID-19 at pt's personal correction. Patient had + PCR 05/24. Repeat SARS-CoV-2 PCR positive 06/05. Chest x-ray shows bilateral infiltrates consistent with COVID-19 pneumonia. No indication for COVID-specific therapies. Monitor closely for progression of pulmonary disease. Will check COVID PCR in the next few days and if we get 2 negative test within 24hr, will d/c isolation Will continue IV abx with Zosyn for now Saturated well on RA (3) Acute renal failure: Creatinine worsening to 2.7 today IV vanco discontinued Starting on IVF Will avoid Nephrotoxic agents Continue monitor BMP (4) Urinary tract infection: UTI, complicated, present on admission. Urine culture growing Staph sp. Continue IV vancomycin for now, will transition to Case discussed with ID (No official consult placed) recommended PO to complete a total of 10 days course of abx CT demonstrated enlarged prostate, trabeculation of bladder, bladder calculi. Should have 10-14 day course of therapy due to bladder calculi. Will not do Macrobid and bactrim due to worsening Kidney function, will do Cefdinir (5) Bladder calculi: F/U with Urology. (6) Urinary retention: CT demonstrated enlarged prostate, trabeculation of bladder, bladder calculi. Previous hospitalist discussed case with urology Continue adams catheter as per urology Will need outpatient follow up with urolgy (7) Inguinal hernia: Right inguinal hernia noted on CT. Hernia contains mesenteric fat and portion of urinary bladder. May need nonemergent repair once COVID status permits. Outpatient surgical follow (8) Dementia: Ongoing monitoring for delirium. Avoid meds with anticholinergic effects whenever possible. (9) Parkinsons disease: PT / OT evals. Continue carbidopa / levodopa and amantadine. (10) DVT prophylaxis: SQ enoxaparin. (11) Discharge planning issues: Discharge disposition to be determined. Medical follow-up with Dr. Adams at [facility]. [place] [facility] [place] about 2 weeks, once COVID-19 status permits. Admission and Anticipated Discharge Date Admission Date: June 05, 2020 Subjective Pt was seen and examined Sitting in chair with no distress watching Football Pt said that he feels fine Denies any chest pain, palpitation, dizziness and SOB Physical Exam Physical Exam: General- No acute distress Head- atraumatic Eyes- PERRL, EOMI, ENT- oropharynx clear Neck- supple, no JVD Lungs- clear to auscultation Heart- regular rhythm; no murmur Abdomen- normal bowel sounds, soft, nontender Extremities- no calf tenderness Neuro- alert, oriented x 3; PERRL, EOMI; no facial palsy; no dysarthria Skin- warm & dry Results & Data Results & Data ([facility]) Vital Signs (Past 12 Hours) Vital Signs Temp Pulse Resp BP BP Pulse Ox 06/10/20 16:24 36.6 C 70 20 124/81 93 06/10/20 11:31 36.7 C 79 20 111/71 93 06/10/20 07:37 36.8 C 60 18 134/88 93
[2020-06-10] MEDS: CEFDINIR 300 MG CAP PO SCH (17:34)
[2020-06-10] MEDS ORDERED: PIPERACILLIN/TAZOBACTAM 3.375 GM in DEXTROSE 5% 100 ML IV SCH (18:00)
[2020-06-11 06:24] LABS: BUN Creatinine Ratio 8.3 (10-20); Calcium 7.9 mg/dl (8.5-10.1); Creatinine Clr Calc Pharmacy 17.5 ml/min; Est GFR (African American) 20.6; Est GFR (Non-African American) 17.8; Potassium 3.7 mmol/L (3.5-5.1)
--- NOTE | 2020-06-11 08:42 | Nephrology Consultation ---
Date of Consultation June 11, 2020 Assessment & Plan (1) Acute kidney injury: Multi factorial. Ischemic ATN 2/2 infection, nephrotoxics combination of Vanc + zoysn. on the background of prerenal component. Expect his creatinine to rise before settling down. Treatment of ATN is supportive. He has a previous h/o prostate ca and [place]- would do USS renal tract to rule out obstruction Urine studies and Urine microspcopy Agree with stopping the Vancomycin. Avoid a combination of Van and Zoysn as this is related to high incidence of renal failure. Maintain even balance , IV fluids 125 mls /hr - Urinary tract infection: -UTI, complicated, present on admission. Was on Vancomycin before which was changed to cefnidir. (2) COVID-19 virus infection: per primary History of Present Illness Attending Physician: Yesi Machado MD History of Present Illness Patient is a 54-year-old [place]-way resident significant past medical history of BPH consents disease [place] impairment. He was diagnosed with Covid positive on May 25 according to the staff has been doing fine with very low-grade fevers and mild congestion. Was found to have an altered mental status on 04 June with spiking temperature and was brought to ER.Labs in the ER revealed a normal lactate of 1.2 ,normal troponin . UA was positive for bacterial LE. He has previous history of UTIs Pseudomonas UTI. CT head was negative for any acute pathology.CT Abdo pelvis done without contrast was suggestive of pneumonia with no bowel obstruction prostatomegaly with evidence of chronic bladder outlet obstruction with nonobstructive bilateral nephrolithiasis. He had a normal creatinine 0.98 on arrival on 1017 which has risen to 3.3+ over the last few days. Urine output has been reasonable. Was treated for staph aureus UTI, with vancomycin and Zosyn. Vancomycin levels were elevated at 38 this was stopped treated to oral cefdinir . His BUN/creatinine today is 27/3.2. Urine output 600 mls. Allergies Allergy/AdvReac Type Severity Reaction Status Date / Time No Known Allergies Allergy Verified 06/04/20 23:07 Home Medications Home Medications Medication Instructions Recorded Confirmed Type diphenhydramine HCl [Banophen] 25 mg PO Q6H PRN 12/04/18 06/04/20 History nystatin 1 applic TOPICAL BID PRN 12/04/18 06/04/20 History carbamide peroxide [Ear Wax Drops] 5 drp OTIC (EAR) Q12H PRN 02/13/19 06/04/20 History docusate sodium 100 mg PO DAILY PRN 02/13/19 06/04/20 History acetaminophen 325 mg capsule 650 mg PO Q4H PRN cap MDD 3gm 06/02/19 06/04/20 History carbidopa 25 mg-levodopa 100 mg 1 tab PO QID 06/15/19 06/04/20 History tablet amantadine HCl 100 mg capsule 100 mg PO BID #60 cap 10/14/19 06/04/20 Rx amlodipine 2.5 mg tablet 2.5 mg PO DAILY 10/14/19 06/04/20 History Patient History Medical History Acute renal failure hx 10/2018 Bilateral hydronephrosis BPH (benign prostatic hyperplasia) Bradycardia Ulrich catheter in place MVP (mitral valve prolapse) Moderate prolapse of the posterior mitral valve leaflet per 04/2019 ECHO Parkinson disease with cognitive impairment Tremor Surgical History History of prostate surgery History of testicular surgery 06/2019. General anesthesia. LMA #4 igel Family History Father No pertinent family history Mother No pertinent family history Other Brain tumor Social History Smoking Status: Never smoker Second Hand Exposure: No; Hx Alcohol Use: No Hx Substance Use: No Preferred Language: [place] Communication Ability: Effective Electrocardiographic Technician Required: No Beliefs That Will Affect Care: None marital status: Single Current Living Situation: Personal Care Facility Current Living Situation Comment: [facility] current occupational status: retired How many Children do You have: 0 Other Information That Helps Us Care for You: No Feels Safe at Home: Yes Assistive Devices: Walker Review of Systems Review of Systems: Unobtainable due to cognitive status Physical Exam Physical Exam: HEENT: No pallor, no icterus. Pupils equal, round, reactive to light, somewhat difficult to open his eyes. Oral mucosa dry. NECK: No JVD, no neck masses seen. CARDIOVASCULAR: S1, S2 heard, regular rate and rhythm, no murmur, no gallop. RESPIRATORY SYSTEM: Normal AP diameter. No accessory muscle use. No wheezing, no crackles. ABDOMEN: Soft, bowel sounds present. Nontender. No distention. CENTRAL NERVOUS SYSTEM: Somewhat drowsy but oriented to name and answers simple questions appropriately. Able to move his extremities. EXTREMITIES: No edema, no erythema Results & Data ([facility]) Vital Signs (Past 12 Hours) Vital Signs Temp Pulse Resp BP Pulse Ox 06/11/20 08:32 37.3 C 61 18 167/97 H 94 06/11/20 03:42 37.1 C 67 17 167/84 H 96 06/10/20 23:50 36.5 C 76 19 160/97 H 96 Laboratory Results 06/05/20 08:18 06/11/20 04:55
[2020-06-11] MEDS: ENOXAPARIN INJ 40 MG/0.4 ML SYR SQ SCH (09:40)
[2020-06-11] MEDS: AMANTADINE HCL 100 MG CAPSULE PO SCH (09:41)
[2020-06-11] MEDS: PANTOprazole 40 MG TAB PO SCH (09:41)
[2020-06-11] MEDS: amLODIPine BESYLATE 5 MG TAB PO SCH (09:42)
[2020-06-11] MEDS: CARBIDOPA/LEVODOPA 25/100MG TAB PO SCH ×4 (09:42→21:41)
[2020-06-11] MEDS: NSS + 20MEQ KCL 20 MEQ/1,000 ML BAG IV SCH (12:37)
[2020-06-11 15:00] LABS: Bacteria Urine Automated 1+ (Negative); Epithelial Cell Urine Auto 20-30 /lpf (0-5); WBC Urine Automated >30 /hpf (0-5)
[2020-06-11 15:15] LABS: Cast Urine Automated 0 /lpf (0-5); Renal Epithelial Cells Urine 0-5 /lpf (0-5)
[2020-06-11 15:26] LABS: Creatinine Urine Random 29.4 mg/dl; Total Protein Urine Random 19.3 mg/dl (0-11.9)
--- NOTE | 2020-06-11 16:59 | Hospitalist Progress Note ---
Date of Service June 11, 2020 Assessment & Plan (1) Acute alteration in mental status: Possible related to toxic / metabolic encephalopathy (delirium) secondary to COVID-19 and / or UTI. CT head showed no acute intracranial abnormality. Old stroke, age-related changes. Clinically improved (2) COVID-19 virus infection: Pneumonia Outbreak of COVID-19 [facility]. Patient had + PCR 05/24. Repeat SARS-CoV-2 PCR positive 06/05. Chest x-ray shows bilateral infiltrates consistent with COVID-19 pneumonia. No indication for COVID-specific therapies. Monitor closely for progression of pulmonary disease. Will check COVID PCR in the next few days and if we get 2 negative test within 24hr, will d/c isolation Zosyn discontinued Saturated well on RA (3) Acute renal failure: Mostly due to ATN Creatinine worsening above 3 today today IV vanco/Zosyn discontinued Continue IVF with NSS Continue to avoid Nephrotoxic agents Nephrology on board Will get a renal u/s Continue monitor BMP (4) Urinary tract infection: UTI, complicated, present on admission. Urine culture growing Staph sp. Continue IV vancomycin for now, will transition to Case discussed with ID (No official consult placed) recommended PO to complete a total of 10 days course of abx CT demonstrated enlarged prostate, trabeculation of bladder, bladder calculi. Should have 10-14 day course of therapy due to bladder calculi. Continue Cefdinir PO (5) Bladder calculi: (6) Urinary retention: CT demonstrated enlarged prostate, trabeculation of bladder, bladder calculi. Previous hospitalist discussed case with urology Continue adams catheter as per urology Will need outpatient follow up with urology Will get renal u/s to r/o any obstruction (7) Inguinal hernia: Right inguinal hernia noted on CT. Hernia contains mesenteric fat and portion of urinary bladder. May need nonemergent repair once COVID status permits. Outpatient surgical follow (8) Dementia: Ongoing monitoring for delirium. Avoid meds with anticholinergic effects whenever possible. (9) Parkinsons disease: PT / OT evals. Continue carbidopa / levodopa and amantadine. (10) DVT prophylaxis: SQ enoxaparin. (11) Discharge planning issues: Discharge disposition to be determined. Medical follow-up with Dr. [facility] at [facility]. [facility] in about 2 weeks, once COVID-19 status permits. Called family no one answered, Left voicemail to call the hospital for update Admission and Anticipated Discharge Date Admission Date: June 05, 2020 Subjective Pt was seen and examined Sitting in chair with no distress watching TV He is comfortable He has been saturated well on RA Called family member to provide update, unfortunately no one answered Denies any symptoms Physical Exam Physical Exam: General- No acute distress Head- atraumatic Eyes- PERRL, EOMI, ENT- oropharynx clear Neck- supple, no JVD Lungs- clear to auscultation Heart- regular rhythm; no murmur Abdomen- normal bowel sounds, soft, nontender Extremities- no calf tenderness Neuro- alert, oriented x 3; PERRL, EOMI; no facial palsy; no dysarthria Skin- warm & dry Results & Data Results & Data ([facility]) Vital Signs (Past 12 Hours) Vital Signs Temp Pulse Resp BP Pulse Ox 06/11/20 16:16 36.9 C 58 L 20 161/96 H 93 06/11/20 08:32 37.3 C 61 18 167/97 H 94
[2020-06-11] MEDS: CEFDINIR 300 MG CAP PO SCH (18:01)
[2020-06-12] MEDS: NSS + 20MEQ KCL 20 MEQ/1,000 ML BAG IV SCH ×2 (02:59→17:11)
[2020-06-12] MEDS ORDERED: DEXTROSE 50% 50 ML SYRINGE IV ONE (06:10)
[2020-06-12] MEDS: amLODIPine BESYLATE 5 MG TAB PO SCH (08:22)
[2020-06-12] MEDS: AMANTADINE HCL 100 MG CAPSULE PO SCH (08:22)
[2020-06-12] MEDS: PANTOprazole 40 MG TAB PO SCH (08:22)
[2020-06-12] MEDS: CARBIDOPA/LEVODOPA 25/100MG TAB PO SCH ×4 (08:23→21:42)
[2020-06-12] MEDS: ENOXAPARIN INJ 30 MG/0.3 ML SYR SQ SCH (08:23)
--- NOTE | 2020-06-12 08:36 | Ultrasound Report ---
RENAL ULTRASOUND CLINICAL HISTORY: Elevated creatinine. COMPARISON STUDY: CT of the abdomen and pelvis June 04, 2020. TECHNIQUE: Sonography of the kidneys and the urinary bladder was performed. FINDINGS: Incidental note is made of a 3.6 cm right hepatic lobe cyst as well as a gallstone within t he gallbladder. The gallbladder is distended. No gallbladder wall thickening. No sonographic [facility] ign was elicited. Tubular anechoic foci within right renal sinus favor parapelvic cysts. There is no left hydronephrosis. The kidneys are echogenic. There is moderate left renal atrophy. Right kidney me asures 13.4 x 6.2 x 6.5 centers and the left measures 11.9 x 5.5 x 5.2 cm. Multiple left renal calcul i are noted. These measure up to 8 mm. Bladder is collapsed, containing a Ulrich catheter. Prostate is enlarged. IMPRESSION: 1. Tubular anechoic foci within the right renal sinus which favor parapelvic cysts. Mild hydronephros is would be difficult to exclude but is considered less likely. No left hydronephrosis. 2. Echogenic kidneys. 3. Left-sided nephrolithiasis. 4. Cholelithiasis. 5. Enlarged prostate. ACT 112: Negative or not required by law. Electronically signed by: Mannie Ward M.D. 06/12/2020 8:35 AM
[2020-06-12 10:00] LABS: BUN Creatinine Ratio 8.9 (10-20); Calcium 8.4 mg/dl (8.5-10.1); Est GFR (African American) 21.3; Est GFR (Non-African American) 18.4; Potassium 4.2 mmol/L (3.5-5.1)
[2020-06-12] MEDS: CEFDINIR 300 MG CAP PO SCH (17:13)
--- NOTE | 2020-06-12 17:34 | Hospitalist Progress Note ---
Date of Service June 12, 2020 Assessment & Plan (1) Acute alteration in mental status: Possible related to toxic / metabolic encephalopathy (delirium) secondary to COVID-19 and / or UTI. CT head showed no acute intracranial abnormality. Old stroke, age-related changes. Clinically improved (2) COVID-19 virus infection: Pneumonia Outbreak of COVID-19 at pt's personal shelter. Patient had + PCR 05/24. Repeat SARS-CoV-2 PCR positive 06/05. Chest x-ray shows bilateral infiltrates consistent with COVID-19 pneumonia. No indication for COVID-specific therapies. Monitor closely for progression of pulmonary disease. Will check COVID PCR in the next few days and if we get 2 negative test within 24hr, will d/c isolation Zosyn discontinued Saturated well on RA (3) Acute renal failure: Mostly due to ATN Creatinine remained at 3.1 IV vanco/Zosyn discontinued Continue IVF with NSS Continue to avoid Nephrotoxic agents Nephrology on board Renal u/s showed tubular anechoic foci within the right renal sinus which favor parapelvic cysts. Mild hydronephrosis would be difficult to exclude but is considered less likely. No left hydronephrosis. Echogenic kidneys. Left-sided nephrolithiasis. Continue monitor BMP (4) Urinary tract infection: UTI, complicated, present on admission. Urine culture growing Staph sp. Continue IV vancomycin for now, will transition to Case discussed with ID (No official consult placed) recommended PO to complete a total of 10 days course of abx CT demonstrated enlarged prostate, trabeculation of bladder, bladder calculi. Should have 10-14 day course of therapy due to bladder calculi. Continue Cefdinir PO (5) Bladder calculi: (6) Urinary retention: CT demonstrated enlarged prostate, trabeculation of bladder, bladder calculi. Previous hospitalist discussed case with urology Continue adams catheter as per urology Will need outpatient follow up with urology Renal u/s showed tubular anechoic foci within the right renal sinus which favor parapelvic cysts. Mild hydronephrosis would be difficult to exclude but is considered less likely. No left hydronephrosis. (7) Inguinal hernia: Right inguinal hernia noted on CT. Hernia contains mesenteric fat and portion of urinary bladder. May need nonemergent repair once COVID status permits. Outpatient surgical follow (8) Dementia: Ongoing monitoring for delirium. Avoid meds with anticholinergic effects whenever possible. (9) Parkinsons disease: PT / OT evals. Continue carbidopa / levodopa and amantadine. (10) DVT prophylaxis: SQ enoxaparin. (11) Discharge planning issues: Discharge disposition to be determined. Medical follow-up with Dr. Adams at [facility]. Urology follow-up with [facility] in about 2 weeks, once COVID-19 status permits. Called family no one answered, Left voicemail to call the hospital for update Admission and Anticipated Discharge Date Admission Date: June 05, 2020 Subjective Pt was seen and examined Sitting in chair with no distress Pt said that he feels ok His breathing has been stable Denies any chest pain, palpitation, dizziness and SOB Physical Exam Physical Exam: General- No acute distress Head- atraumatic Eyes- PERRL, EOMI, ENT- oropharynx clear Neck- supple, no JVD Lungs- clear to auscultation Heart- regular rhythm; no murmur Abdomen- normal bowel sounds, soft, nontender Extremities- no calf tenderness Neuro- alert, oriented x 3; PERRL, EOMI; no facial palsy; no dysarthria Skin- warm & dry Results & Data Results & Data ([facility]) Vital Signs (Past 12 Hours) Vital Signs Temp Pulse Resp BP Pulse Ox 06/12/20 13:45 36.9 C 73 16 151/93 H 95 06/12/20 11:21 36.7 C 54 L 18 131/62 96 06/12/20 08:09 36.8 C 56 L 18 124/69 96
[2020-06-12] MEDS ORDERED: SODIUM CHLORIDE 0.9% 1000ML 1,000 ML IV SCH (18:00)
--- NOTE | 2020-06-12 18:26 | Nephrology Progress Note ---
Date of Service June 12, 2020 Assessment & Plan (1) Acute kidney injury: baseline creatinine 1.0-1.1 >> he was at baseline on 06/04 admission; then creat began to rise on 06/09 to 1.3, peaked yesterday at 3.2. Multi factorial ATN 2/2 infection, nephrotoxics combination of Vanc + zoysn. on the background of progressed prerenal component. last dose vanco was 06/09 stable creatinine today Treatment of ATN is supportive. He has a previous h/o prostate ca and [place]- but renal u/s reassuring -ordered proper UACM and d/t hyperchloremia changed NS to normosol same rate -daily bmp -cont to hold vanco/zosyn UTI, complicated, present on admission>>Was on Vancomycin before which was changed to cefnidir. (2) COVID-19 virus infection: per primary Admission and Anticipated Discharge Date Admission Date: June 05, 2020 Subjective spoke with pt by phone and reviewed case w/ RN. pt moved from covid unit to 3 today > minimal po but thirsty. Review of Systems Review of Systems: some limits to pt mental status Respiratory: + cough; no dyspnea Cardiovascular: no edema Gastrointestinal: very thirsty; minimal po; no n/v or abd pain Genitourinary: no difficulty urinating and no problem reported Physical Exam Physical Exam: in order to preserve PPE and minimize staff exposure, exam deferred > refer to hospitalist exam pls; pt with fluent speech but confused >>states it's "just getting light (it's evening):" and speaking to me he thnks he's at his facility; no labored breathing or cough on exam; euthymic; fluent speech; [place] Results & Data ([facility]) Vital Signs (Past 12 Hours) Vital Signs Temp Pulse Resp BP Pulse Ox 06/12/20 13:45 36.9 C 73 16 151/93 H 95 06/12/20 11:21 36.7 C 54 L 18 131/62 96 06/12/20 08:09 36.8 C 56 L 18 124/69 96 Laboratory Results 06/05/20 08:18 06/12/20 08:41 micro only on urine Diagnostic Findings renal u/s today 1. Tubular anechoic foci within the right renal sinus which favor parapelvic cysts. Mild hydronephrosis would be difficult to exclude but is considered less likely. No left hydronephrosis. 2. Echogenic kidneys. 3. Left-sided nephrolithiasis. 4. Cholelithiasis. 5. Enlarged prostate.
[2020-06-12] MEDS: NORMOSOL-R 1,000 ML IV SCH (18:48)
[2020-06-12 22:34] LABS: Appearance Urine Clear (Clear); Bacteria Urine Automated Negative (Negative); Bilirubin Urine Negative (Negative); Blood Urine 1+ (Negative); Color Urine Yellow; Glucose Urine UA Negative (Negative); Ketones Urine Negative (Negative); Leukocyte Esterase Urine 3+ (Negative); Nitrite Urine Negative (Negative); Protein Urine Negative (Negative); RBC Urine Automated 0-4 /hpf (0-4); Specific Gravity Urine 1.007 (1.000-1.030); Urobilinogen Urine Negative (Negative); WBC Urine Automated >30 /hpf (0-5); pH Urine 6.5 (4.5-7.5)
[2020-06-12] MEDS: D5W AND NSS 1,000 ML IV SCH (23:35)
[2020-06-13] MEDS: NORMOSOL-R 1,000 ML IV SCH ×3 (03:04→17:44)
[2020-06-13 06:56] LABS: BUN Creatinine Ratio 9.7 (10-20); Calcium 8.4 mg/dl (8.5-10.1); Creatinine Clr Calc Pharmacy 20.5 ml/min; Est GFR (African American) 24.8; Est GFR (Non-African American) 21.4; Potassium 3.9 mmol/L (3.5-5.1)
[2020-06-13] MEDS: amLODIPine BESYLATE 5 MG TAB PO SCH (10:08)
[2020-06-13] MEDS: ENOXAPARIN INJ 30 MG/0.3 ML SYR SQ SCH (10:08)
[2020-06-13] MEDS: PANTOprazole 40 MG TAB PO SCH (10:08)
[2020-06-13] MEDS: CARBIDOPA/LEVODOPA 25/100MG TAB PO SCH ×4 (10:08→20:03)
--- NOTE | 2020-06-13 13:49 | Nephrology Progress Note ---
Date of Service June 13, 2020 Assessment & Plan (1) Acute kidney injury: baseline creatinine 1.0-1.1 >> he was at baseline on 06/04 admission; then creat began to rise on 06/09 to 1.3, peaked 06/11 at 3.2. Multi factorial ATN 2/2 infection, nephrotoxics combination of Vanc + zoysn. on the background of progressed prerenal component. last dose vanco was 06/09 stable creatinine today Treatment of ATN is supportive. 1.4L negative today > possibly post ATN diuresis UA remarkable for ongoing blood, inflammation but no infection; possible component of interstitial nephritis but would not bx; again tx supportive He has a previous h/o prostate ca and [place]- but renal u/s reassuring -cont normosol current rate and follow I/O -daily bmp -cont to hold vanco/zosyn UTI, complicated, present on admission>>Was on Vancomycin before which was changed to cefnidir. (2) COVID-19 virus infection: per primary Admission and Anticipated Discharge Date Admission Date: June 05, 2020 Subjective no sob, no pain, no voiding issues. nursing reports eating fairly well. no acute interval clinical events. Review of Systems Review of Systems: All systems reviewed & are unremarkable except as noted in HPI & below Physical Exam 2 Physical Exam: in order to preserve PPE and minimize staff exposure, full physical exam deferred > refer to hospitalist exam pls and below ENMT: Ears: + hearing impairment Respiratory: no labored breathing and no cough Neurologic: Speech / Cognition: + abnormal cognition; normal speech Psychiatric: Affect: euthymic affect Insight: + limited insight Judgement: + limited judgement Genitourinary: no adams Results & Data ([facility]) Vital Signs (Past 12 Hours) Vital Signs Temp Pulse Resp BP Pulse Ox 06/13/20 08:05 36.9 C 69 16 167/83 H 93 06/13/20 05:50 37 C 70 12 178/91 H 95 Laboratory Results 06/05/20 08:18 06/13/20 06:04
--- NOTE | 2020-06-13 19:40 | Hospitalist Progress Note ---
Date of Service June 13, 2020 Assessment & Plan (1) Acute alteration in mental status: Possible related to toxic / metabolic encephalopathy (delirium) secondary to COVID-19 and / or UTI. CT head showed no acute intracranial abnormality. Old stroke, age-related changes. Clinically improved (2) COVID-19 virus infection: Pneumonia Outbreak of COVID-19 at pt's [facility]. Patient had + PCR 05/24. Repeat SARS-CoV-2 PCR positive 06/05. Chest x-ray shows bilateral infiltrates consistent with COVID-19 pneumonia. No indication for COVID-specific therapies. Monitor closely for progression of pulmonary disease. Will check COVID PCR in the next few days and if we get 2 negative test within 24hr, will d/c isolation Zosyn discontinued Saturated well on RA (3) Acute renal failure: Mostly due to ATN Creatinine increased to 3.2, then trending down to 2.7 today IV vanco/Zosyn discontinued Continue IVF with NSS Continue to avoid Nephrotoxic agents Nephrology on board Renal u/s showed tubular anechoic foci within the right renal sinus which favor parapelvic cysts. Mild hydronephrosis would be difficult to exclude but is considered less likely. No left hydronephrosis. Echogenic kidneys. Left-sided nephrolithiasis. Continue monitor BMP (4) Urinary tract infection: UTI, complicated, present on admission. Urine culture growing Staph sp. Continue IV vancomycin for now, will transition to Case discussed with ID (No official consult placed) recommended PO to complete a total of 10 days course of abx CT demonstrated enlarged prostate, trabeculation of bladder, bladder calculi. Should have 10-14 day course of therapy due to bladder calculi. Continue Cefdinir PO (5) Bladder calculi: F/U with Urology. (6) Urinary retention: CT demonstrated enlarged prostate, trabeculation of bladder, bladder calculi. Previous hospitalist discussed case with urology Continue adams catheter as per urology Will need outpatient follow up with urology Renal u/s showed tubular anechoic foci within the right renal sinus which favor parapelvic cysts. Mild hydronephrosis would be difficult to exclude but is considered less likely. No left hydronephrosis. (7) Inguinal hernia: Right inguinal hernia noted on CT. Hernia contains mesenteric fat and portion of urinary bladder. May need nonemergent repair once COVID status permits. Outpatient surgical follow (8) Dementia: Ongoing monitoring for delirium. Avoid meds with anticholinergic effects whenever possible. (9) Parkinsons disease: PT / OT evals. Continue carbidopa / levodopa and amantadine. (10) DVT prophylaxis: SQ enoxaparin. (11) Discharge planning issues: Discharge disposition to be determined. Medical follow-up with Dr. Adams at [facility]. Urology follow-up with [facility] in about 2 weeks, once COVID-19 status permits. Called family no one answered, Left voicemail to call the hospital for update Admission and Anticipated Discharge Date Admission Date: June 05, 2020 Subjective Pt was seen and examined Lying in bed with no distress Comfortable in bed Denies any chest pain, palpitation, dizziness and SOB Physical Exam Physical Exam: General- No acute distress Head- atraumatic Eyes- PERRL, EOMI, ENT- oropharynx clear Neck- supple, no JVD Lungs- clear to auscultation Heart- regular rhythm; no murmur Abdomen- normal bowel sounds, soft, nontender Extremities- no calf tenderness Neuro- alert, oriented x 3; PERRL, EOMI; no facial palsy; no dysarthria Skin- warm & dry Results & Data Results & Data ([facility]) Vital Signs (Past 12 Hours) Vital Signs Temp Pulse Resp BP Pulse Ox 06/13/20 18:08 37.1 C 67 14 166/75 H 94 06/13/20 08:05 36.9 C 69 16 167/83 H 93
[2020-06-14] MEDS: NORMOSOL-R 1,000 ML IV SCH ×3 (01:44→18:53)
[2020-06-14 06:51] LABS: BUN Creatinine Ratio 10.2 (10-20); Calcium 8.4 mg/dl (8.5-10.1); Creatinine Clr Calc Pharmacy 21.2 ml/min; Est GFR (Non-African American) 22.4; Potassium 3.5 mmol/L (3.5-5.1)
[2020-06-14] MEDS: ENOXAPARIN INJ 30 MG/0.3 ML SYR SQ SCH (08:35)
[2020-06-14] MEDS: AMANTADINE HCL 100 MG CAPSULE PO SCH (08:36)
[2020-06-14] MEDS: PANTOprazole 40 MG TAB PO SCH (08:36)
[2020-06-14] MEDS: amLODIPine BESYLATE 5 MG TAB PO SCH (08:36)
[2020-06-14] MEDS: CARBIDOPA/LEVODOPA 25/100MG TAB PO SCH ×4 (08:36→20:52)
--- NOTE | 2020-06-14 08:46 | Nephrology Progress Note ---
Date of Service June 14, 2020 Assessment & Plan (1) Acute kidney injury: baseline creatinine 1.0-1.1 >> he was at baseline on 06/04 admission; then creat began to rise on 06/09 to 1.3, peaked 06/11 at 3.2. Multi factorial ATN 2/2 infection, nephrotoxics combination of Vanc + zoysn. on the background of progressed prerenal component. last dose vanco was 06/09 further improved creatinine today Treatment of ATN is supportive; he is repsonding to IVF as well UA remarkable for ongoing blood, inflammation but no infection; possible component of interstitial nephritis but would not bx; again tx supportive He has a previous h/o prostate ca and [place]- but renal u/s reassuring -cont normosol > lowered rate to 80 mL/hourly and follow I/O -daily bmp -cont to hold vanco/zosyn UTI, complicated, present on admission>>Was on Vancomycin before which was changed to cefnidir. (2) COVID-19 virus infection: per primary Admission and Anticipated Discharge Date Admission Date: June 05, 2020 Physical Exam Physical Exam: in order to preserve PPE and minimize staff exposure, full physical exam deferred > refer to hospitalist exam pls and below ENMT: Ears: + hearing impairment Respiratory: no labored breathing and no cough Neurologic: Speech / Cognition: + abnormal cognition; normal speech Psychiatric: Affect: euthymic affect Insight: + limited insight Judgement: + limited judgement Results & Data ([facility]) Vital Signs (Past 12 Hours) Vital Signs Temp Pulse Resp BP Pulse Ox 06/14/20 06:17 36.9 C 46 L 12 172/80 H 94 06/13/20 23:35 36.7 C 65 12 145/77 H 96 Laboratory Results 06/05/20 08:18 06/14/20 06:00
--- NOTE | 2020-06-14 13:56 | Hospitalist Progress Note ---
Date of Service June 14, 2020 Assessment & Plan (1) Acute alteration in mental status: Possible related to toxic / metabolic encephalopathy (delirium) secondary to COVID-19 and / or UTI. CT head showed no acute intracranial abnormality. Old stroke, age-related changes. Clinically improved (2) COVID-19 virus infection: Pneumonia Outbreak of COVID-19 at pt's personal alf. Patient had + PCR 05/24. Repeat SARS-CoV-2 PCR positive 06/05. Chest x-ray showed bilateral infiltrates consistent with COVID-19 pneumonia. Not requiring oxygen. No worsening respiratory status No indication for COVID-specific therapies. Continue to monitor closely for progression of pulmonary disease. Reassess need to recheck COVID PCR in the next few days and if we get 2 negative test within 24hr, will d/c isolation Completed antibiotics (3) Acute renal failure: Mostly due to ATN Slowly improving Creatinine increased to 3.2, then trending down to 2.65 today Continue IVF with NSS per feed grinder recommendations and monitor Will continue to follow recommendations Continue to avoid nephrotoxic agents Renal u/s showed tubular anechoic foci within the right renal sinus which favor parapelvic cysts. Mild hydronephrosis would be difficult to exclude but is considered less likely. No left hydronephrosis. Echogenic kidneys. Left-sided nephrolithiasis. (4) Urinary tract infection: UTI, complicated, present on admission. Urine culture growing Staph sp. Initially was on IV vancomycin and zosyn. Then transitioned to po cefdinir Case discussed by Dr Cerna with ID (No official consult placed) recommended PO to complete a total of 10 days course of abx CT demonstrated enlarged prostate, trabeculation of bladder, bladder calculi. Completed 10 day antibiotic therapy (5) Bladder calculi: F/U with Urology outpatient (6) Urinary retention: CT demonstrated enlarged prostate, trabeculation of bladder, bladder calculi. Previous hospitalist discussed case with urology Continue adams catheter on discharge per Dr Machdao's plan with Urology Will need outpatient follow up with urology (7) Inguinal hernia: Right inguinal hernia noted on CT. Hernia contains mesenteric fat and portion of urinary bladder. May need nonemergent repair once COVID status permits. Outpatient surgical follow (8) Dementia: Ongoing monitoring for delirium. Avoid meds with anticholinergic effects whenever possible. (9) Parkinsons disease: Continue PT / OT while inpatient Continue carbidopa / levodopa and amantadine. (10) DVT prophylaxis: SQ enoxaparin. For reported acute change in pedal pulses, Patient does not have any acute ischemic signs but does have faint pulses Will get arterial duplex to reported acute change for better assessment (11) Discharge planning issues: Discharge disposition to be determined once medically stable Medical follow-up with Dr. Adams at [facility]. Urology follow-up with [facility] in about 2 weeks, once COVID-19 status permits. Admission and Anticipated Discharge Date Admission Date: June 05, 2020 Subjective Patient seen and examined Prior to my evaluation, patient's RN reported that there is a significant change in her vascular check of lower extremities. She reported pulses were very palpable earlier in the morning and last check now show difficulty palpating pedal pulses and discoloration of lower extremities. Patient currently denies any pain in lower extremities. Denied any paresthesia/numbness at this time Reports occasional dry cough that is unchanged. Denied any chest pain, SOB, wheezing Denied any fevers, chills, nausea, vomiting Denied any abd pain, diarrhea Physical Exam Constitutional: Elderly man in no obvious distress Eyes: PERRL, conjunctivae normal, anicteric sclerae ENMT: external ear and nose normal, oropharynx normal Respiratory: normal respiratory effort, lungs clear to auscultation Cardiovascular: RRR, S1 S2 Pedal pulses faint. No cyanosis noted. No differential warmth Gastrointestinal (Abdomen): normal bowel sounds, soft, nontender, no hepatosplenomegaly Neurologic: PERRLA, EOMI Alert and oriented to person and place only Moves extremities Results & Data Results & Data ([facility]) Vital Signs (Past 12 Hours) Vital Signs Temp Pulse Resp BP Pulse Ox 06/14/20 08:47 36.5 C 77 22 115/90 92 06/14/20 06:17 36.9 C 46 L 12 172/80 H 94 Laboratory Results Laboratory Results - last 24 hr 06/14/20 06:00 Sodium 142 Potassium 3.5 Chloride 108 H Carbon Dioxide 28 Anion Gap 6.0 BUN 27 H Creatinine 2.65 H Est Cr Clr Drug Dosing 21.2 Est GFR ( Amer) 26.0 Est GFR (Non-Af Amer) 22.4 BUN/Creatinine Ratio 10.2 Glucose 94 Calcium 8.4 L
--- NOTE | 2020-06-14 18:06 | Ultrasound Report ---
US arterial duplex bilateral lower extremity CLINICAL HISTORY: Assess arterial patency. Rule out occlusion. Bilateral lower extremity pain. COMPARISON STUDY: None. FINDINGS: The ankle brachial indices were not performed. Minimal scattered calcified plaque within th e bilateral lower extremities. There are normal biphasic to triphasic waveforms and velocities throug hout the bilateral lower extremity arterial systems. No areas of stenosis or occlusion identified. IMPRESSION: No significant stenosis or occlusion identified within the bilateral lower extremity art erial systems. ACT 112: Negative or not required by law. Electronically signed by: Jan Rosen M.D. 06/14/2020 6:04 PM
[2020-06-15] MEDS: ACETAMINOPHEN 325 MG TAB PO PRN (03:54)
[2020-06-15 06:26] LABS: Hematocrit (blood only) 37.5 % (42-52); Hemoglobin 12.5 g/dL (14.0-18.0); Mean Corpuscular Hemoglobin 28.8 pg (25-34); Mean Corpuscular Hgb Conc 33.3 g/dL (32-36); Mean Corpuscular Volume 86.4 fL (80-100); Mean Platelet Volume 9.3 fL (7.4-10.4); Platelet Count 281 K/uL (130-400); RDW Coefficient of Variation 13.7 % (11.5-14.5); RDW Standard Deviation 43.6 fL (36.4-46.3); Red Blood Count 4.34 M/uL (4.7-6.1); White Blood Count 7.33 K/uL (4.8-10.8)
[2020-06-15 07:06] LABS: BUN Creatinine Ratio 12.5 (10-20); Creatinine Clr Calc Pharmacy 25.1 ml/min; Est GFR (African American) 31.8; Est GFR (Non-African American) 27.5; Potassium 3.5 mmol/L (3.5-5.1)
[2020-06-15] MEDS: NORMOSOL-R 1,000 ML IV SCH (07:34)
[2020-06-15] MEDS: CARBIDOPA/LEVODOPA 25/100MG TAB PO SCH ×4 (07:35→20:00)
[2020-06-15] MEDS: AMANTADINE HCL 100 MG CAPSULE PO SCH (07:35)
[2020-06-15] MEDS: ENOXAPARIN INJ 30 MG/0.3 ML SYR SQ SCH (07:48)
[2020-06-15] MEDS: amLODIPine BESYLATE 5 MG TAB PO SCH (07:48)
[2020-06-15] MEDS: PANTOprazole 40 MG TAB PO SCH (07:49)
--- NOTE | 2020-06-15 12:18 | Hospitalist Progress Note ---
Date of Service June 15, 2020 Assessment & Plan (1) Acute alteration in mental status: Possible related to toxic / metabolic encephalopathy (delirium) secondary to COVID-19 and / or UTI. CT head showed no acute intracranial abnormality. Old stroke, age-related changes. Clinically improved (2) COVID-19 virus infection: Pneumonia Outbreak of COVID-19 at pt's personal halfway. Patient had + PCR 05/24. Repeat SARS-CoV-2 PCR positive 06/05. Chest x-ray showed bilateral infiltrates consistent with COVID-19 pneumonia. Not requiring oxygen. No worsening respiratory status No indication for COVID-specific therapies. Continue to monitor closely for progression of pulmonary disease. Completed antibiotics (3) Acute renal failure: Mostly due to ATN Improving Creatinine increased to 3.2, then trending down to 2.24 today Discussed with front office coordinator Dr Lerner today Will discontinue IVF and monitor for the next 24h Continue to avoid nephrotoxic agents Renal u/s showed tubular anechoic foci within the right renal sinus which favor parapelvic cysts. Mild hydronephrosis would be difficult to exclude but is considered less likely. No left hydronephrosis. Echogenic kidneys. Left-sided nephrolithiasis. (4) Urinary tract infection: UTI, complicated, present on admission. Urine culture growing Staph sp. Initially was on IV vancomycin and zosyn. Then transitioned to po cefdinir Case discussed by Dr Cerna with ID (No official consult placed) recommended PO to complete a total of 10 days course of abx CT demonstrated enlarged prostate, trabeculation of bladder, bladder calculi. Completed antibiotic therapy (5) Bladder calculi: F/U with Urology outpatient (6) Urinary retention: CT demonstrated enlarged prostate, trabeculation of bladder, bladder calculi. Previous hospitalist discussed case with urology Continue adams catheter on discharge per Dr Machado's plan with Urology Will need outpatient follow up with urology (7) Inguinal hernia: Right inguinal hernia noted on CT. Hernia contains mesenteric fat and portion of urinary bladder. May need nonemergent repair once COVID status permits. Outpatient surgical follow (8) Dementia: Ongoing monitoring for delirium. Avoid meds with anticholinergic effects whenever possible. (9) Parkinsons disease: Continue PT / OT while inpatient Continue carbidopa / levodopa and amantadine. (10) DVT prophylaxis: SQ enoxaparin. Arterial dopplers did not show any significant stenosis or occlusion (11) Discharge planning issues: Discharge disposition to be determined once medically stable. Possible discharge tomorrow Medical follow-up with Dr. Adams at [facility]. Urology follow-up with [facility] in about 2 weeks, once COVID-19 status permits. Admission and Anticipated Discharge Date Admission Date: June 05, 2020 Subjective Patient seen and examined Patient denied any new complaints States he feels fine Still has occasional dry cough Denied any chest pain, SOB Denied any fevers, chills, nausea, vomiting Physical Exam Eyes: PERRL, conjunctivae normal, anicteric sclerae ENMT: external ear and nose normal, oropharynx normal Respiratory: normal respiratory effort, lungs clear to auscultation Cardiovascular: RRR S1 S2 Faint palpable pedal pulses, no cyanosis Gastrointestinal (Abdomen): normal bowel sounds, soft, nontender, no hepatosplenomegaly Neurologic: AOX3, moves extremities, follows commands Results & Data Results & Data ([facility]) Vital Signs (Past 12 Hours) Vital Signs Temp Pulse Resp BP BP Pulse Ox 06/15/20 08:41 70 152/90 H 06/15/20 07:29 36.4 C L 52 L 16 166/104 H 93 06/15/20 05:23 36.6 C 78 16 168/100 H 167/93 H 92 Laboratory Results Laboratory Results - last 24 hr 06/15/20 06/15/20 06:01 06:01 WBC 7.33 RBC 4.34 L Hgb 12.5 L Hct 37.5 L MCV 86.4 MCH 28.8 MCHC 33.3 RDW Std Deviation 43.6 RDW Coeff of Kayley 13.7 Plt Count 281 MPV 9.3 Sodium 142 Potassium 3.5 Chloride 107 Carbon Dioxide 29 Anion Gap 6.0 BUN 28 H Creatinine 2.24 H D Est Cr Clr Drug Dosing 25.1 Est GFR ( Amer) 31.8 Est GFR (Non-Af Amer) 27.5 BUN/Creatinine Ratio 12.5 Glucose 88 Calcium 8.0 L
--- NOTE | 2020-06-15 19:42 | Nephrology Progress Note ---
Date of Service June 15, 2020 Assessment & Plan (1) Acute kidney injury: Stage 2 acute renal failure and nearly met criteria for stage 3; baseline creatinine 1.0-1.1 >> he was at baseline on 06/04 admission; then creat began to rise on 06/09 to 1.3, peaked 06/11 at 3.2. Multi factorial ATN 2/2 infection, nephrotoxics combination of Vanc + zoysn. on the background of progressed prerenal component. last dose vanco was 06/09 further improved creatinine today; with this hx he is at high risk for recurrent ANGE and/or CKD Treatment of ATN is supportive; he also responded to IVF as well UA remarkable for ongoing blood, inflammation but no infection; possible component of interstitial nephritis but would not bx; again tx supportive He has a previous h/o prostate ca and [place]- but renal u/s reassuring -given relative HTN, we stopped IVF today; he is on his customary low dose OP amlodipine dose -daily bmp -cont to hold vanco/zosyn >he will need bmp 1 week after hospital discharge and follow up with Dr Butcher or nephro PA (not wy d/t schedule constraints) in 4-6 weeks in [facility] > DISCHARGE summary updated UTI, complicated, present on admission>>Was on Vancomycin before which was changed to cefnidir. (2) COVID-19 virus infection: per primary Admission and Anticipated Discharge Date Admission Date: June 05, 2020 Subjective care d/w RN and MD and w/ pt by phone. he has been up to bathroom; denies sob doing this; some loose bm; denies voiding concerns with adams; pt w/ occasional abd cramp Review of Systems Review of Systems: All systems reviewed & are unremarkable except as noted in HPI & below Physical Exam Constitutional: no acute distress ENMT: Ears: + hearing impairment Respiratory: no labored breathing Neurologic: fluent speech Genitourinary: adams present Results & Data ([facility]) Vital Signs (Past 12 Hours) Vital Signs Temp Pulse Resp BP Pulse Ox 06/15/20 15:11 36.8 C 85 16 118/75 93 06/15/20 08:41 70 152/90 H Laboratory Results 06/15/20 06:01 06/15/20 06:01
[2020-06-16 05:28] LABS: BUN Creatinine Ratio 14.8 (10-20); Creatinine Clr Calc Pharmacy 25.8 ml/min; Est GFR (African American) 32.9; Est GFR (Non-African American) 28.4; Potassium 3.3 mmol/L (3.5-5.1)
[2020-06-16] MEDS ORDERED: POTASSIUM CHLORIDE 20 MEQ/15 ML UDC PO STA (07:26)
[2020-06-16] MEDS: amLODIPine BESYLATE 5 MG TAB PO SCH (08:14)
[2020-06-16] MEDS: CARBIDOPA/LEVODOPA 25/100MG TAB PO SCH ×2 (08:14→12:25)
[2020-06-16] MEDS: ENOXAPARIN INJ 30 MG/0.3 ML SYR SQ SCH (08:15)
[2020-06-16] MEDS: PANTOprazole 40 MG TAB PO SCH (08:15)
--- NOTE | 2020-06-16 10:24 | Discharge Summary ---
Date of Service June 16, 2020 Admission HPI Per Admitting Provider 74-year-old male with past medical history significant for BPH, history of retention of urine, history of Parkinson's disease, history of sensorineural hearing loss, bilateral, mild cognitive impairment, history of elevated bilirubin who is an [facility] resident, was brought in because of altered mental status. The patient was diagnosed with COVID-19 virus on May 25, as per nursing staff, he was doing fine, some mild low-grade fevers and some mild congestion, but he did really well with COVID, but today on June 04 morning, he was more confused than usual. He is generally alert and oriented but is more confused and is having spiking temperatures and so they decided to send him to the ER. In the ER, found to have mild leukopenia. His ABG was okay, he was saturating okay on room air. Lactate was 1.2. Troponin was negative. Procalcitonin was also negative. UA was positive for bacteria and leukocyte esterase. He has history of UTIs in the past with pseudomonas. Given his pseudomonas, he was started Zosyn in the ER. As per nursing staff, the patient ambulates with a walker and he does not have teeth and he eats soft food. He cannot eat a sandwich. He did not have any nausea, vomiting, diarrhea or did not complain of any pain. Currently, the patient can tell his name, tell his date of . Thinks that he is in [place], thinks this is June. Denies any headache. He says he has some cough which fci agrees. Denies any phlegm. The patient denies any loss of sense of smell or taste. The patient is hard of hearing. Denies any chest pain. Denies any shortness of breath. Denies any nausea, no abdominal pain. Admission Exam Per Admitting Provider HEENT: No pallor, no icterus. Pupils equal, round, reactive to light, somewhat difficult to open his eyes. Oral mucosa dry. NECK: No JVD, no neck masses seen. CARDIOVASCULAR: S1, S2 heard, regular rate and rhythm, no murmur, no gallop. RESPIRATORY SYSTEM: Normal AP diameter. No accessory muscle use. No wheezing, no crackles. ABDOMEN: Soft, bowel sounds present. Nontender. No distention. CENTRAL NERVOUS SYSTEM: Somewhat drowsy but oriented to name and answers simple questions appropriately. Able to move his extremities. EXTREMITIES: No edema, no erythema. Principal Diagnosis Altered mental status COVID 19 pneumonia Urinary tract infection Urinary retention Bladder calculi Nephrolithiasis Acute renal failure Discharge Exam Constitutional + well hydrated Elderly man in no obvious distress Eyes PERRL, conjunctivae normal, anicteric sclerae ENMT external ear and nose normal, oropharynx normal Respiratory normal respiratory effort, lungs clear to auscultation Cardiovascular Rate/Rhythm: regular rate and regular rhythm S1 S2 Gastrointestinal (Abdomen) normal bowel sounds, soft, nontender, no hepatosplenomegaly Neurologic Alert and oriented to person, place, month and year. Follows simple commands Genitourinary Adams in situ Discharge Data Allergies Allergy/AdvReac Type Severity Reaction Status Date / Time No Known Allergies Allergy Verified 06/04/20 23:07 Consultations 06/04/20 22:50 ED Decision to Admit Stat 06/05/20 01:29 Consult Case Management - Discharge Planning Routine 06/11/20 08:13 Consult Nephrology Routine Ordered Studies 06/04/20 20:13 CT abd pelvis wo con Urgent Partially imaged groundglass opacity of the subpleural right lower lobe. Mild subsegmental bibasilar atelectasis. Trace right pleural effusion. No pneumatosis or pneumoperitoneum. The study is mildly motion degraded. Moderate cardiomegaly with small pericardial effusion. The spleen is unremarkable. 2.2 x 1.3 cm cystic structure of the pancreatic tail is unchanged suggestive of a probable sidebranch IPMN. Generalized pancreatic atrophy. Thickening of the adrenal glands suggests hyperplasia. Cholelithiasis with mild gallbladder distention. No CT evidence of acute cholecystitis. Hypodensities of the liver measuring up to 4.1 cm are suggestive of probable cysts. Numerous nonobstructing calculi of the left kidney measure up to 6 mm. Areas of cortical thinning and parenchymal scarring of the left kidney are also noted. 4 mm parenchymal calcification of the anterior inferior pole left kidney. No ureteral calculi or hydronephrosis. Renal sinus cysts of the right kidney are redemonstrated. Marked prostamegaly. Bladder wall thickening and trabeculation with perivesicular stranding. Numerous urinary bladder calculi, largest of which measures 2.6 cm and a right posterolateral diverticulum. Moderate right inguinal hernia contains mesenteric fat and a portion of the anterior right urinary bladder with numerous bladder calculi and diverticula. Pelvic basin phlebolith. Calcified plaque of the aorta without aneurysm. No adenopathy. Large hiatal hernia with majority of the stomach present within the thoracic cavity. There is no bowel obstruction or bowel wall thickening. Colonic diverticulosis without acute diverticulitis. Appendectomy. Soft tissues are unremarkable. Degenerative changes of the pelvis, hips and spine. Chronic changes at L1-L2. IMPRESSION: 1. Partially imaged asymmetric right lung base opacities suggestive of pneumonia. 2. No bowel obstruction or bowel wall thickening. 3. Marked prostamegaly with evidence of chronic bladder outlet obstruction. There are numerous bladder calculi within several urinary bladder diverticula. 4. Moderate-sized right inguinal hernia contains mesenteric fat and a portion of the urinary bladder. 5. Nonobstructing bilateral nephrolithiasis. 6. Additional findings as above. CT head/brain wo con Urgent No intra or extra-axial mass lesions are visualized. There is no CT evidence of acute cortical infarction. There is no evidence of midline shift. There is no acute hemorrhage. No calvarial fractures are visualized. 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 There is no evidence of pathologic ventricular dilatation. There is no evidence of acute sinusitis There is vertebrobasilar ectasia. IMPRESSION: No acute intracranial findings 06/12/20 16:59 US renal/blad retro comp Routine Incidental note is made of a 3.6 cm right hepatic lobe cyst as well as a gallstone within the gallbladder. The gallbladder is distended. No gallbladder wall thickening. No sonographic Duke sign was elicited. Tubular anechoic foci within right renal sinus favor parapelvic cysts. There is no left hydronephrosis. The kidneys are echogenic. There is moderate left renal atrophy. Right kidney measures 13.4 x 6.2 x 6.5 centers and the left measures 11.9 x 5.5 x 5.2 cm. Multiple left renal calculi are noted. These measure up to 8 mm. Bladder is collapsed, containing a Adams catheter. Prostate is enlarged. IMPRESSION: 1. Tubular anechoic foci within the right renal sinus which favor parapelvic cysts. Mild hydronephrosis would be difficult to exclude but is considered less likely. No left hydronephrosis. 2. Echogenic kidneys. 3. Left-sided nephrolithiasis. 4. Cholelithiasis. 5. Enlarged prostate 06/14/20 13:57 US arterial duplex LE BI Urgent The ankle brachial indices were not performed. Minimal scattered calcified plaque within the bilateral lower extremities. There are normal biphasic to triphasic waveforms and velocities throughout the bilateral lower extremity arterial systems. No areas of stenosis or occlusion identified. IMPRESSION: No significant stenosis or occlusion identified within the bilateral lower extremity arterial systems. Hospital Course (1) Acute alteration in mental status: Possible related to toxic / metabolic encephalopathy (delirium) secondary to COVID-19 CT head showed no acute intracranial abnormality. Old stroke, age-related changes. Clinically improved (2) COVID-19 virus infection: Pneumonia Outbreak of COVID-19 at pt's personal detention. Patient had + PCR 05/24. Repeat SARS-CoV-2 PCR positive 06/05. Chest x-ray showed bilateral infiltrates consistent with COVID-19 pneumonia. Not requiring oxygen. No worsening respiratory status No indication for COVID-specific therapies. Continue to monitor closely for progression of pulmonary disease. Completed antibiotics (3) Acute renal failure: Mostly due to ATN Improving Creatinine increased to 3.2, then trending down to 2.18 today Continue to avoid nephrotoxic agents Renal u/s showed tubular anechoic foci within the right renal sinus which favor parapelvic cysts. Mild hydronephrosis would be difficult to exclude but is considered less likely. No left hydronephrosis. Echogenic kidneys. Left-sided nephrolithiasis. Patient to get BMP in 1 week. and also to follow with network technical analyst Dr Butcher in 4-6 weeks (4) Urinary tract infection: UTI, complicated, present on admission. Urine culture growing Staph sp. Initially was on IV vancomycin and zosyn. Then transitioned to po cefdinir Case discussed by Dr Cerna with ID who recommended PO to complete a total of 10 days course of abx CT demonstrated enlarged prostate, trabeculation of bladder, bladder calculi. Completed antibiotic therapy (5) Bladder calculi: Patient needs follow up with Urology outpatient (6) Urinary retention: CT demonstrated enlarged prostate, trabeculation of bladder, bladder calculi. Continue adams catheter on discharge per Dr Machado's plan with Urology Will need outpatient follow up with urology (7) Inguinal hernia: Right inguinal hernia noted on CT. Hernia contains mesenteric fat and portion of urinary bladder. May need nonemergent repair once COVID status permits. Outpatient surgical follow (8) Dementia: Ongoing monitoring for delirium. Avoid meds with anticholinergic effects whenever possible. (9) Parkinsons disease: Continue carbidopa / levodopa and amantadine. Total Time Total Time Spent Total Time Spent (In Minutes): 45 Total Time Includes: Examination of the Patient, Discharge Planning and Medication Reconciliation Discharge Plan Discharge Items Patient Disposition: Personal Prison Reason For Visit: AMS Discharge Diagnosis: Altered mental status COVID 19 pneumonia Urinary tract infection Urinary retention Bladder calculi Nephrolithiasis Acute renal failure Condition on Discharge: Good Activity: Resume your previous activity Non-emergency contact: Primary Care Provider, Health Education Assistant and Urologist Call non-emergency contact if: you have any medication questions and your symptoms worsen Follow-up/Referrals: JEAN Bloom [Primary Care Provider] - Tariq Butcher MD [Surgeon] - (Date & Time 07/18/2020 1:20 PM Provider Tariq Butcher MD Department Nephrology, [facility] ) Diet: Regular Diet Comment: Minced and moist diet Ambulatory Orders: Basic Metabolic Panel (Routine) Timeframe: 1 Week Location: Determined by Patient Ordered By: Laisha Quick Attending Provider Instructions: Mr Osullivan. You were brought to the hospital for altered mental status. You were treated for COVID 19 pneumonia but did not require COVID specific therapies or oxygen. You were also treated for staph aureus urinary tract infection. You are being discharged on a adams catheter. Please follow up with Urology within 2 weeks for further evaluation and management of urinary retention and other other abnormalities found on imaging of your kidney/bladder. You also developed acute kidney injury while in the hospital. This is currently improving. However, you will need to do blood test in 1 week and follow up result with your Primary Doctor. Please also follow up with Nephrology as instructed below. It was a pleasure taking care of you. Abdelrahman Agri Business Agent Provider Instructions: Nephrology Follow Up Recommendations -bmp within one week of discharge -hospital follow up appointment with Dr Butcher or RANDOLPH Langston in [facility] 4-6 weeks after hospital discharge Pending Studies at Discharge: No Stand-Alone Forms: [employer], Smoking Cessation Skilled Items Patient informed of condition?: Yes DNR: Yes Discharge Level of Care: Skilled Communicable Disease: No Discharge Prognosis: Stable Lines: None Urinary Catheter: Yes Medications and DC Order Prescriptions: Continued amlodipine 2.5 mg tablet 2.5 mg PO DAILY RF: 0 amantadine HCl 100 mg capsule 100 mg PO BID Qty: 60 RF: 5 carbidopa-levodopa 25-100 mg tablet 1 tab PO QID RF: 0 acetaminophen 325 mg capsule 650 mg PO Q4H MDD 3gm PRN (Reason: Fever Or Pain) RF: 0 nystatin 100,000 unit/gram Cream 1 applic TOPICAL BID PRN (Reason: AFFECTED SKIN AREA) RF: 0 diphenhydramine HCl [Banophen] 25 mg Tablet 25 mg PO Q6H PRN (Reason: Congestion) RF: 0 docusate sodium 100 mg capsule 100 mg PO DAILY PRN (Reason: constipation) RF: 0 carbamide peroxide [Ear Wax Drops] 6.5 % Drops 5 drp OTIC (EAR) Q12H PRN (Reason: ear wax removal) RF: 0 Discharge Orders: Discharge Order (Routine); Ordered 06/16/20 Ordered By: Laisha Tanner Admission Data Admit Date/Time: 06/05/20 00:19 Attending Provider: Laisha Tanner I. Admit Provider: Anatoliy Blue Primary Care Provider[facility] Other Providers: Huy Perez ; Anatoliy Blue ; Miguel Sevilla ; Yesi Machado Other Interventions: Discharge Summary Assessment (RN) Last Done: 06/16/20 13:53
== END 2020-06-16 15:55 | disposition home or self-care (01) | DRG 177 ==
LOC: ED 20:00 → 2S 06-05 00:19 → SUATTDRO 06-05 00:19 → 2S 06-05 01:17 → 3E 06-12 13:53

== ENCOUNTER 2020-06-20 19:16 | Inpatient (IN) ==
--- NOTE | 2020-06-20 19:41 | Emergency Department Note ---
History of Present Illness General Chief complaint: Hematuria Time Seen by Provider: 06/20/20 19:20 Source: patient and RN notes reviewed Mode of arrival: EMS History of Present Illness Provider complaint: Confusion and blood clots in Ulrich Onset (ago): hour(s) Location: head and genitals Severity: moderate Pain Consistency: + constant Quality: + other (Blood clots in Ulrich) Relieved By: + other (Irrigation) Associated symptoms: + confusion, + cough and + fever/chills; no chest pain, no headaches, no nausea/vomiting and no shortness of breath This is a 74-year-old male who was recently admitted for COVID-19 pneumonia and altered mental status thought to be secondary to encephalopathy. He is presenting today after he was sent here by his personal detention for increased confusion above baseline and clots in his Ulrich catheter. The symptoms started today. He denies any pain. He states he has no headache, chest pain, shortness of breath, abdominal pain, back pain or fever. He does have a cough and was diagnosed with COVID-19. He is not requiring oxygen. They do state that he has been drinking less recently. They have been trying to irrigate the Ulrich catheter to remove the clots but he still has hematuria. Home Medications Home Medications Medication Instructions Recorded Confirmed Type diphenhydramine HCl [Banophen] 25 mg PO Q6H PRN 12/04/18 06/20/20 History nystatin 1 applic TOPICAL BID PRN 12/04/18 06/20/20 History carbamide peroxide [Ear Wax Drops] 5 drp OTIC (EAR) Q12H PRN 02/13/19 06/20/20 History docusate sodium 100 mg PO DAILY PRN 02/13/19 06/20/20 History acetaminophen 325 mg capsule 650 mg PO Q4H PRN cap MDD 3 GMS 06/02/19 06/20/20 History APAP/24 HOURS carbidopa 25 mg-levodopa 100 mg 1 tab PO QID 06/15/19 06/20/20 History tablet amantadine HCl 100 mg capsule 100 mg PO BID #60 cap 10/14/19 06/20/20 Rx amlodipine 2.5 mg tablet 2.5 mg PO DAILY 10/14/19 06/20/20 History nystatin [Nystop] 1 applic TOPICAL DIRECTED PRN 06/20/20 06/20/20 History Allergies Allergy/AdvReac Type Severity Reaction Status Date / Time No Known Allergies Allergy Verified 06/20/20 22:51 Past Med/Surg History Medical History (Updated 06/21/20 @ 00:01 by Peter Weber) Acute renal failure hx 10/2018 Bilateral hydronephrosis BPH (benign prostatic hyperplasia) Bradycardia Ulrich catheter in place MVP (mitral valve prolapse) Moderate prolapse of the posterior mitral valve leaflet per 04/2019 ECHO Parkinson disease with cognitive impairment Tremor Surgical History History of prostate surgery History of testicular surgery 06/2019. General anesthesia. LMA #4 igel Family History Father No pertinent family history Mother No pertinent family history Other Brain tumor Social History Smoking Status: Unknown if ever smoked Second Hand Exposure: No; Hx Alcohol Use: No Hx Substance Use: No Preferred Language: Danish Communication Ability: Effective Air Tube Releaser Required: No Beliefs That Will Affect Care: None marital status: Single Current Living Situation: Personal Care Facility Current Living Situation Comment: [facility] current occupational status: retired How many Children do You have: 0 Feels Safe at Home: Yes Assistive Devices: Walker Review of Systems See HPI for pertinent positives & negatives. and A total of 10 systems reviewed and were otherwise negative Physical Exam Vital Signs Vital Signs - 24 hr 06/20/20 19:28 06/20/20 19:45 06/20/20 19:47 Temperature 37.2 C Temperature Source Oral Pulse Rate 90 67 73 Pulse Rate from SpO2 Sensor 69 73 Respiratory Rate 18 18 24 Blood Pressure 147/94 H 146/102 H Blood Pressure Mean 111 115 Pulse Oximetry 100 100 100 Oxygen Delivery Method Room Air Sepsis Recent Fever Within 48 Hours No Sepsis New/Unexplained Change in Mental Status N/A Sepsis Action Taken by Nursing No Action Required 06/20/20 19:50 06/20/20 20:00 06/20/20 20:01 Temperature Temperature Source Pulse Rate 65 71 65 Pulse Rate from SpO2 Sensor 65 71 65 Respiratory Rate 24 23 22 Blood Pressure 147/97 H Blood Pressure Mean 114 Pulse Oximetry 100 99 100 Oxygen Delivery Method Sepsis Recent Fever Within 48 Hours Sepsis New/Unexplained Change in Mental Status Sepsis Action Taken by Nursing 06/20/20 20:10 06/20/20 20:16 06/20/20 20:20 Temperature Temperature Source Pulse Rate 68 69 88 Pulse Rate from SpO2 Sensor 69 69 67 Respiratory Rate 24 23 23 Blood Pressure 168/89 H Blood Pressure Mean 112 Pulse Oximetry 100 99 99 Oxygen Delivery Method Sepsis Recent Fever Within 48 Hours Sepsis New/Unexplained Change in Mental Status Sepsis Action Taken by Nursing 06/20/20 20:41 06/20/20 20:50 06/20/20 21:00 Temperature Temperature Source Pulse Rate 63 66 63 Pulse Rate from SpO2 Sensor Respiratory Rate 18 21 21 Blood Pressure Blood Pressure Mean Pulse Oximetry Oxygen Delivery Method Sepsis Recent Fever Within 48 Hours Sepsis New/Unexplained Change in Mental Status Sepsis Action Taken by Nursing 06/20/20 21:10 06/20/20 21:20 06/20/20 21:30 Temperature Temperature Source Pulse Rate 66 60 63 Pulse Rate from SpO2 Sensor Respiratory Rate 22 23 19 Blood Pressure Blood Pressure Mean Pulse Oximetry Oxygen Delivery Method Sepsis Recent Fever Within 48 Hours Sepsis New/Unexplained Change in Mental Status Sepsis Action Taken by Nursing 06/20/20 21:34 06/20/20 21:40 06/20/20 21:45 Temperature Temperature Source Pulse Rate 69 70 70 Pulse Rate from SpO2 Sensor Respiratory Rate 18 24 Blood Pressure 158/91 H 152/90 H Blood Pressure Mean 97 101 Pulse Oximetry Oxygen Delivery Method Sepsis Recent Fever Within 48 Hours Sepsis New/Unexplained Change in Mental Status Sepsis Action Taken by Nursing 06/20/20 21:50 06/20/20 22:00 06/20/20 22:31 Temperature Temperature Source Pulse Rate 70 68 77 Pulse Rate from SpO2 Sensor 68 67 139 H Respiratory Rate 21 21 20 Blood Pressure 159/93 H 149/90 H Blood Pressure Mean 99 102 Pulse Oximetry 92 98 94 Oxygen Delivery Method Room Air Room Air Sepsis Recent Fever Within 48 Hours Sepsis New/Unexplained Change in Mental Status Sepsis Action Taken by Nursing 06/20/20 23:00 06/20/20 23:31 06/21/20 00:01 Temperature Temperature Source Pulse Rate 68 102 H 70 Pulse Rate from SpO2 Sensor 69 79 72 Respiratory Rate 20 15 22 Blood Pressure 160/89 H 131/81 140/83 Blood Pressure Mean 111 91 106 Pulse Oximetry 94 94 94 Oxygen Delivery Method Room Air Room Air Room Air Sepsis Recent Fever Within 48 Hours Sepsis New/Unexplained Change in Mental Status Sepsis Action Taken by Nursing Constitutional: Vital signs reviewed. Eyes: Pupils are equal round reactive to light. Conjunctiva are noninjected. ENT: Pharynx is clear without erythema or exudate. Mucous membranes are dry. Neck supple without meningeal signs. Respiratory: Clear to auscultation bilaterally. Breath sounds are equal bilaterally. Cardiovascular: Regular rate and rhythm. No rubs or gallops. GI: Soft, nondistended and nontender. Bowel sounds are present. : Ulrich catheter in place with bloody urine. Musculoskeletal: No peripheral edema. No lower extremity tenderness. Integumentary: No cyanosis. or jaundice. Neurological: The patient is awake and alert. No focal deficits. He is oriented to person and place. Psychiatric: Normal affect. Not anxious appearing. Course Administered Medications Discontinued Medications Piperacillin Sod/Tazobactam Sod (Zosyn) 4.5 gm in 120 mls @ 240 mls/hr IV NOW ONE Stop: 06/20/20 23:03 Last Infusion: 06/20/20 23:35 Dose: 0 mls/hr Documented by: [id number] Admin: 06/20/20 23:05 Dose: 240 mls/hr Documented by: [id number] Vancomycin HCl 1,250 mg/ (Sodium Chloride) 525 mls @ 200 mls/hr IV NOW ONE Stop: 06/21/20 01:13 Last Admin: 06/20/20 23:41 Dose: 200 mls/hr Documented by: [id number] Medical Decision Making Differential Diagnosis ANGE, dehydration, hematuria, UTI, ICH, metabolic derangement, encephalopathy Medical Records Attestation: I reviewed the patient's medical records. The patient was admitted to the hospital last month for COVID-19. He was thought to have altered mental status secondary from encephalopathy. He had ANGE and his discharge creatinine was 2.1. He did have a CT of the abdomen and pelvis which demonstrated bladder calculi as well as intrarenal calculi. He was treated with Zosyn for a UTI as he had a prior history of Pseudomonas. Home Medications Current Medication List: was personally reviewed by me Laboratory Data Attestation: I reviewed the patient's lab results. Result diagrams: 06/20/20 19:32 06/20/20 19:32 Lab Results 06/20/20 06/20/20 06/20/20 Range/Units 19:32 19:32 19:32 WBC 10.22 (4.8-10.8) K/uL RBC 4.30 L (4.7-6.1) M/uL Hgb 12.5 L (14.0-18.0) g/dL Hct 38.3 L (42-52) % MCV 89.1 (80-100) fL MCH 29.1 (25-34) pg MCHC 32.6 (32-36) g/dL RDW Std Deviation 45.0 (36.4-46.3) fL RDW Coeff of Kayley 13.8 (11.5-14.5) % Plt Count 269 (130-400) K/uL MPV 9.9 (7.4-10.4) fL Immature Gran % (Auto) 0.4 % Neut % (Auto) 82.0 % Lymph % (Auto) 7.9 % [place] % (Auto) 8.1 % Eos % (Auto) 1.4 % Baso % (Auto) 0.2 % Neut # (Auto) 8.38 H (1.4-6.5) K/uL Lymph # (Auto) 0.81 L (1.2-3.4) K/uL [place] # (Auto) 0.83 H (0.11-0.59) K/uL Eos # (Auto) 0.14 (0-0.5) K/uL Baso # (Auto) 0.02 (0-0.2) K/uL Immature Gran # (Auto) 0.04 H (0.00-0.02) K/uL PT 11.2 (9.0-12.0) Seconds INR 1.1 (0.9-1.1) APTT 30.4 (21.0-31.0) Seconds PTT Ratio 1.1 Sodium 140 (136-145) mmol/L Potassium 3.5 (3.5-5.1) mmol/L Chloride 105 (98-107) mmol/L Carbon Dioxide 29 (21-32) mmol/L Anion Gap 6.0 (3-11) BUN 25 H (7-18) mg/dl Creatinine 1.65 H (0.6-1.4) mg/dl Est Cr Clr Drug Dosing 34.5 ml/min Est GFR ( Amer) 46.0 Est GFR (Non-Af Amer) 39.7 BUN/Creatinine Ratio 15.2 (10-20) Glucose 129 H (70-99) mg/dl Calcium 8.7 (8.5-10.1) mg/dl Total Bilirubin 0.5 (0.2-1) mg/dl AST 18 (15-37) U/L ALT 8 L (12-78) U/L Alkaline Phosphatase 62 (45-117) U/L Troponin I < 0.015 (0-0.045) ng/ml Total Protein 6.9 (6.4-8.2) gm/dl Albumin 2.5 L (3.4-5.0) gm/dl Globulin 4.4 H (2.5-4.0) gm/dl Albumin/Globulin Ratio 0.6 L (0.9-2) Specimen Hemolysis Urine Color Urine Appearance (Clear) Urine pH (4.5-7.5) Ur Specific [place] (1.000-1.030) Urine Protein (Negative) Urine Glucose (UA) (Negative) Urine Ketones (Negative) Urine Blood (Negative) Urine Nitrite (Negative) Urine Bilirubin (Negative) Urine Urobilinogen (Negative) Ur Leukocyte Esterase (Negative) Urine WBC (Auto) (0-5) /hpf Urine RBC (Auto) (0-4) /hpf U Hyaline Cast (Auto) (0-5) /lpf U Epithel Cells (Auto) (0-5) /lpf Urine Bacteria (Auto) (Negative) COVID-19 Eval Order 06/20/20 06/21/20 Range/Units 21:45 00:43 WBC (4.8-10.8) K/uL RBC (4.7-6.1) M/uL Hgb (14.0-18.0) g/dL Hct (42-52) % MCV (80-100) fL MCH (25-34) pg MCHC (32-36) g/dL RDW Std Deviation (36.4-46.3) fL RDW Coeff of Kayley (11.5-14.5) % Plt Count (130-400) K/uL MPV (7.4-10.4) fL Immature Gran % (Auto) % Neut % (Auto) % Lymph % (Auto) % [place] % (Auto) % Eos % (Auto) % Baso % (Auto) % Neut # (Auto) (1.4-6.5) K/uL Lymph # (Auto) (1.2-3.4) K/uL [place] # (Auto) (0.11-0.59) K/uL Eos # (Auto) (0-0.5) K/uL Baso # (Auto) (0-0.2) K/uL Immature Gran # (Auto) (0.00-0.02) K/uL PT (9.0-12.0) Seconds INR (0.9-1.1) APTT (21.0-31.0) Seconds PTT Ratio Sodium (136-145) mmol/L Potassium (3.5-5.1) mmol/L Chloride (98-107) mmol/L Carbon Dioxide (21-32) mmol/L Anion Gap (3-11) BUN (7-18) mg/dl Creatinine (0.6-1.4) mg/dl Est Cr Clr Drug Dosing ml/min Est GFR ( Amer) Est GFR (Non-Af Amer) BUN/Creatinine Ratio (10-20) Glucose (70-99) mg/dl Calcium (8.5-10.1) mg/dl Total Bilirubin (0.2-1) mg/dl AST (15-37) U/L ALT (12-78) U/L Alkaline Phosphatase (45-117) U/L Troponin I (0-0.045) ng/ml Total Protein (6.4-8.2) gm/dl Albumin (3.4-5.0) gm/dl Globulin (2.5-4.0) gm/dl Albumin/Globulin Ratio (0.9-2) Specimen Hemolysis Urine Color Yellow Urine Appearance Turbid A (Clear) Urine pH 7.5 (4.5-7.5) Ur Specific [place] 1.012 (1.000-1.030) Urine Protein 1+ H (Negative) Urine Glucose (UA) Negative (Negative) Urine Ketones Negative (Negative) Urine Blood 3+ H (Negative) Urine Nitrite Positive A (Negative) Urine Bilirubin Negative (Negative) Urine Urobilinogen Negative (Negative) Ur Leukocyte Esterase 3+ H (Negative) Urine WBC (Auto) >30 H (0-5) /hpf Urine RBC (Auto) >30 H (0-4) /hpf U Hyaline Cast (Auto) 5-10 H (0-5) /lpf U Epithel Cells (Auto) 10-20 H (0-5) /lpf Urine Bacteria (Auto) 1+ H (Negative) COVID-19 Eval Order Covid[facility] Radiologist's Impression: CT SCAN OF THE BRAIN WITHOUT IV CONTRAST CLINICAL HISTORY: Change in mental status. COMPARISON STUDY: CT of the brain dated 06/04/2020. TECHNIQUE: Unenhanced axial CT scan of the brain is performed from the vertex to the skull base. A dose lowering technique was utilized adhering to the principles of ALARA. CT DOSE: 1949.28 mGycm FINDINGS: Brain parenchyma: There are age-related involutional changes noting mild subcortical and periventricular microangiopathic change. There is no hemorrhage, mass effect, or evidence of acute territorial ischemia by CT criteria. 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 Vargas-white matter differentiation is preserved. No extra-axial fluid collection is seen. Ventricles, sulci, cisterns: Prominent secondary to involutional change. Intracranial vasculature: There is atherosclerotic calcification of the cavernous carotid and vertebral arteries. There is dolichoectasia of the right vertebral artery. Calvarium: Unremarkable. Sinuses and mastoids: There is opacification of right posterior ethmoid sinuses. Trace mucosal thickening is seen in the maxillary antra. The mastoid air cells are well pneumatized. There is chronic appearing posttraumatic deformity of the anterior wall of the left maxillary sinus. Orbits: The bony orbits are grossly intact. IMPRESSION: There is no hemorrhage, mass effect, or evidence of acute territorial ischemia by CT criteria. ACT 112: Negative or not required by law. Electronically signed by: Claudio Reed M.D. 06/20/2020 8:47 PM SINGLE VIEW CHEST CLINICAL HISTORY: Covid. FINDINGS: An AP, portable, upright chest radiograph is compared to study dated 06/04/2020. Correlation is made with abdominal CT dated 06/04/2020. The heart is enlarged. The pulmonary vasculature is noncongested. Chronic interstitial thickening and elevation of right hemidiaphragm are similar to previous. There is a large hiatal hernia. Patchy airspace consolidation is seen in the right midlung. No large pleural effusion or pneumothorax is seen. Foci of scarring/atelectasis are noted at the lung bases. The skeletal structures are osteopenic. The bony thorax is grossly intact. IMPRESSION: 1. Cardiomegaly without radiographic evidence of congestive failure. 2. Mild patchy airspace opacities are again seen in the right midlung. Correlate clinically for evidence of an infectious/inflammatory pneumonitis. 3. Large hiatal hernia. ACT 112: Negative or not required by law. Electronically signed by: Claudio Reed M.D. 06/20/2020 8:17 PM Dictated: 06/20/202015 Transcribed: 06/20/202015 ECG Data Attestation: I personally reviewed and interpreted this ECG as follows: Indication: + altered mental status Rate (beats per minute): 71 Rhythm: + normal sinus ECG [place]: + Left axis deviation ECG Findings: + Other (Limited interpretation due to baseline artifact) MDM Narrative I did evaluate the patient as noted above. The patient was sent here for increased confusion and altered mental status with hematuria. His Ulrich catheter was flushed and is working properly. IV access was established. I did place an order for continuous cardiac monitoring. The monitor showed normal sinus rhythm at a rate of 88 bpm. I did order and personally review the patient's 12-lead EKG as described above. He has no acute ischemic changes. I did order and personally reviewed the images of the patient's chest x-ray as described above. He has persistent infiltrates without any significant change. I did order a urine analysis. He does appear to have a UTI. Looking at his prior cultures he did grow out MRSA as well as Pseudomonas. I therefore treated the patient with IV Zosyn and vancomycin. I did order and review the patient's blood work as noted in the electronic medical record. His white count is slightly elevated at 10.22 with a left shift. Creatinine is 1.65 which is improved from his prior. I did order a CT of the head. I did review the images myself as well as the radiology report as described above. There is no evidence of acute intracranial process. The patient will be hospitalized for antibiotic treatment and further evaluation and care. I did discuss case with the hospitalist and director of casework services. Impression & Plan Altered mental status, Catheter-associated urinary tract infection, Pneumonia due to COVID-19 virus Discharge Plan Visit Data Chief Complaint: Hematuria ED Provider: Panda Saxena Discharge Problem: Altered mental status, Catheter-associated urinary tract infection, Pneumonia due to COVID-19 virus Patient Disposition: Being Evaluated by Hospitalist Forms Stand Alone Forms: [facility] Prescriptions Prescriptions: No Action amlodipine 2.5 mg tablet 2.5 mg PO DAILY RF: 0 amantadine HCl 100 mg capsule 100 mg PO BID Qty: 60 RF: 5 carbidopa-levodopa 25-100 mg tablet 1 tab PO QID RF: 0 acetaminophen 325 mg capsule 650 mg PO Q4H MDD 3 GMS APAP/24 HOURS PRN (Reason: Fever Or Pain) RF: 0 nystatin 100,000 unit/gram Cream 1 applic TOPICAL BID PRN (Reason: Rash) RF: 0 diphenhydramine HCl [Banophen] 25 mg Tablet 25 mg PO Q6H PRN (Reason: Allergy Symptoms) RF: 0 docusate sodium 100 mg capsule 100 mg PO DAILY PRN (Reason: Constipation) RF: 0 carbamide peroxide [Ear Wax Drops] 6.5 % Drops 5 drp OTIC (EAR) Q12H PRN (Reason: Ear Wax Removal) RF: 0 nystatin [Nystop] 100,000 unit/gram Powder 1 applic TOPICAL DIRECTED PRN (Reason: Yeast Infection) RF: 0 [facility] Discharge Problem: Altered mental status Qualifiers: Altered mental status type: disorientation Qualified Code(s): R41.0 - Diso rientation, unspecified Catheter-associated urinary tract infection Qualifiers: Indwelling urinary catheter type: indwelling urethral catheter Encounter type: initial encounter Qualified Code(s): T83.511A - Infection and inflammatory reaction due to indwelling urethral catheter, initial encounter
[2020-06-20 19:53] LABS: Basophils # (auto) 0.02 K/uL (0-0.2); Basophils % (auto) 0.2 %; Eosinophils # (auto) 0.14 K/uL (0-0.5); Eosinophils % (auto) 1.4 %; Hematocrit (blood only) 38.3 % (42-52); Hemoglobin 12.5 g/dL (14.0-18.0); Immature Granulocytes # (auto) 0.04 K/uL (0.00-0.02); Immature Granulocytes % (auto) 0.4 %; Lymphocytes # (auto) 0.81 K/uL (1.2-3.4); Lymphocytes % (auto) 7.9 %; Mean Corpuscular Hemoglobin 29.1 pg (25-34); Mean Corpuscular Hgb Conc 32.6 g/dL (32-36); Mean Corpuscular Volume 89.1 fL (80-100); Mean Platelet Volume 9.9 fL (7.4-10.4); Monocytes # (auto) 0.83 K/uL (0.11-0.59); Monocytes % (auto) 8.1 %; Neutrophils # (auto) 8.38 K/uL (1.4-6.5); Platelet Count 269 K/uL (130-400); RDW Coefficient of Variation 13.8 % (11.5-14.5); White Blood Count 10.22 K/uL (4.8-10.8)
[2020-06-20 20:06] LABS: INR 1.1 (0.9-1.1); Partial Thromboplastin Ratio 1.1; Partial Thromboplastin Time 30.4 Seconds (21.0-31.0); Prothrombin Time 11.2 Seconds (9.0-12.0)
[2020-06-20 20:18] LABS: Alanine Aminotransferase 8 U/L (12-78); Albumin Globulin Ratio 0.6 (0.9-2); Albumin Level 2.5 gm/dl (3.4-5.0); Alkaline Phosphatase 62 U/L (45-117); Aspartate Aminotransferase 18 U/L (15-37); BUN Creatinine Ratio 15.2 (10-20); Bilirubin,Total 0.5 mg/dl (0.2-1); Blood Urea Nitrogen 25 mg/dl (7-18); Calcium 8.7 mg/dl (8.5-10.1); Carbon Dioxide 29 mmol/L (21-32); Chloride 105 mmol/L (98-107); Creatinine Clr Calc Pharmacy 34.5 ml/min; Est GFR (Non-African American) 39.7; Globulin 4.4 gm/dl (2.5-4.0); Glucose 129 mg/dl (70-99); Potassium 3.5 mmol/L (3.5-5.1); Sodium 140 mmol/L (136-145); Total Protein 6.9 gm/dl (6.4-8.2); Troponin I < 0.015 ng/ml (0-0.045)
--- NOTE | 2020-06-20 20:19 | XRay Report ---
SINGLE VIEW CHEST CLINICAL HISTORY: Covid. FINDINGS: An AP, portable, upright chest radiograph is compared to study dated 06/04/2020. Correlatio n is made with abdominal CT dated 06/04/2020. The heart is enlarged. The pulmonary vasculature is non congested. Chronic interstitial thickening and elevation of right hemidiaphragm are similar to previo us. There is a large hiatal hernia. Patchy airspace consolidation is seen in the right midlung. No la rge pleural effusion or pneumothorax is seen. Foci of scarring/atelectasis are noted at the lung base s. The skeletal structures are osteopenic. The bony thorax is grossly intact. IMPRESSION: 1. Cardiomegaly without radiographic evidence of congestive failure. 2. Mild patchy airspace opacities are again seen in the right midlung. Correlate clinically for evide nce of an infectious/inflammatory pneumonitis. 3. Large hiatal hernia. ACT 112: Negative or not required by law. Electronically signed by: Claudio Reed M.D. 06/20/2020 8:17 PM
--- NOTE | 2020-06-20 20:49 | CT Scan Report ---
CT SCAN OF THE BRAIN WITHOUT IV CONTRAST CLINICAL HISTORY: Change in mental status. COMPARISON STUDY: CT of the brain dated 06/04/2020. TECHNIQUE: Unenhanced axial CT scan of the brain is performed from the vertex to the skull base. A do se lowering technique was utilized adhering to the principles of ALARA. CT DOSE: 1949.28 mGycm FINDINGS: Brain parenchyma: There are age-related involutional changes noting mild subcortical and periventric ular microangiopathic change. There is no hemorrhage, mass effect, or evidence of acute territorial i schemia by CT criteria. 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 Vargas-white matter differentiation is preserved. No extra-axial fluid collection is seen. Ventricles, sulci, cisterns: Prominent secondary to involutional change. Intracranial vasculature: There is atherosclerotic calcification of the cavernous carotid and vertebr al arteries. There is dolichoectasia of the right vertebral artery. Calvarium: Unremarkable. Sinuses and mastoids: There is opacification of right posterior ethmoid sinuses. Trace mucosal thicke desi is seen in the maxillary antra. The mastoid air cells are well pneumatized. There is chronic khurram earing posttraumatic deformity of the anterior wall of the left maxillary sinus. Orbits: The bony orbits are grossly intact. IMPRESSION: There is no hemorrhage, mass effect, or evidence of acute territorial ischemia by CT jaquan burden. ACT 112: Negative or not required by law. Electronically signed by: Claudio Reed M.D. 06/20/2020 8:47 PM
[2020-06-20 21:57] LABS: Appearance Urine Turbid (Clear); Bacteria Urine Automated 1+ (Negative); Bilirubin Urine Negative (Negative); Blood Urine 3+ (Negative); Glucose Urine UA Negative (Negative); Ketones Urine Negative (Negative); Leukocyte Esterase Urine 3+ (Negative); Nitrite Urine Positive (Negative); RBC Urine Automated >30 /hpf (0-4); Specific Gravity Urine 1.012 (1.000-1.030); Urobilinogen Urine Negative (Negative); WBC Urine Automated >30 /hpf (0-5); pH Urine 7.5 (4.5-7.5)
[2020-06-20 22:01] LABS: Color Urine Yellow; Protein Urine 1+ (Negative)
[2020-06-20 22:12] LABS: Sulfosalicylic Acid Urine Positive (Negative)
[2020-06-20] MEDS ORDERED: PIPERACILL/TAZOBAC CONSULT ACTIVE PRN (22:34)
[2020-06-20] MEDS ORDERED: PIPERACILLIN/TAZOBACTAM 4.5 GM/120 ML BAG IV ONE (22:34)
[2020-06-20] MEDS ORDERED: VANCOMYCIN CONSULT ACTIVE PRN (22:36)
[2020-06-20] MEDS ORDERED: VANCOMYCIN HCL 1,250 MG in SODIUM CHLORIDE 0.9% 500 ML IV ONE (22:36)
--- NOTE | 2020-06-21 03:40 | History and Physical Report ---
DATE OF ADMISSION: 06/21/2020 CHIEF COMPLAINT: Confusion, UTI. HISTORY OF PRESENT ILLNESS: This is a 74-year-old male with past medical history significant for BPH, history of urinary retention, currently on Ulrich catheter, history of Parkinson disease, history of sensorineural hearing loss bilaterally, mild cognitive impairment, history of elevated bilirubin, who was recently admitted on 06/05/2020 for confusion and COVID and also urinary tract infection. He was here from 06/05/2020 to 06/16/2020. He was first diagnosed with COVID on 05/25/2020 and he was discharged on 06/16/2020 back to [facility]. During the hospitalization, hospital course was complicated by ANGE, creatinine increased to 3.2 and trended to 2.1 and seen by nephrology and has a followup appointment with nephrology, and also bladder calculi was found and was supposed to follow with urology as outpatient, urinary retention. Has a Ulrich catheter placed. Also right inguinal hernia was noted on the CAT scan and to follow outpatient surgically. In the detention today, the patient was more confused than his usual, somewhat agitated and they found some clots in the Ulrich bag, so that is the reason they brought him back here. Here, the patient is hemodynamically stable, afebrile, no leukocytosis. Creatinine is 1.6, improved from the discharge. Urinalysis again positive with +3 leukocyte esterase and +[address] of head is unremarkable. Chest x-ray, mild patchy airspace opacity again seen in the right mid lung. The patient is only oriented to name currently. He does not know where he is. Denies any pain. Drowsy, obeys simple commands like opening the mouth or moving his extremities, but could not get as much history from the patient. Most of the history got from the detention and talked to his power of trademark attorney, his family member, and he is DNR/DNI. ALLERGIES: No known drug allergies. PAST MEDICAL HISTORY: As mentioned above. PAST SURGICAL HISTORY: Status post appendectomy in September 2019. FAMILY HISTORY: Father had brain cancer, mother has hypertension. SOCIAL HISTORY: Currently living at [facility]. No history of smoking, alcohol, or drug use. MEDICATIONS: Currently the patient is on Tylenol 650 mg p.o. q. 4 hours p.r.n., amantadine 100 mg p.o. b.i.d., amlodipine 2.5 mg p.o. daily, earwax drops p.r.n., carbidopa/levodopa 25/100 mg one tablet p.o. q.i.d., diphenhydramine 25 mg p.o. q. 6 hours p.r.n., Colace 100 mg p.o. daily p.r.n., nystatin 1 application topically b.i.d. p.r.n. REVIEW OF SYSTEMS: As per HPI. Rest of the review of systems negative. PHYSICAL EXAMINATION: GENERAL: The patient is of moderate build, not in acute distress, somewhat confused. VITAL SIGNS: Temperature 37.2, pulse 76, respiratory rate 22, blood pressure 132/81, oxygen 96% on room air. HEENT: Atraumatic. Oral mucosa dry. NECK: No JVD, no neck masses seen. CARDIOVASCULAR: S1, S2 heard, regular rate and rhythm, no murmur, no gallop. RESPIRATORY SYSTEM: Normal AP diameter. No accessory muscle use. No wheezing, no crackles. ABDOMEN: Soft, bowel sounds present, nontender. No distention. CENTRAL NERVOUS SYSTEM: Drowsy, oriented to name only. Obeys simple commands, moves extremities. No facial droop seen. Speech is clear. EXTREMITIES: No edema, no erythema. LABORATORY DATA: WBC is10.2 , hemoglobin 12.5, hematocrit 38.3, platelets 269. PT 11.2, INR 1.1, APTT 30.4. Sodium 140, potassium 3.5, chloride 105, bicarbonate 29, BUN 25, creatinine 1.6, serum glucose 129, calcium 8.7, total bilirubin 0.5, AST 18, ALT 8, alkaline phosphatase 62. Troponin I less than 0.015. Urinalysis positive for +3 leukocyte esterase and +1 bacteria. IMAGING DATA: CT of the head, no acute findings. Chest x-ray, cardiomegaly, mild patchy airspace opacities are again seen in the right mid lung. EKG: Normal sinus rhythm at a rate of [address] wave abnormalities seen. ASSESSMENT AND PLAN: This is a 74-year-old male who was recently diagnosed with COVID and history of urinary tract infection and urinary retention, comes back with confusion and for urinary tract infection. 1. Confusion, altered mental status, encephalopathy, mostly likely secondary to urinary tract infection. History of pseudomonas in the past and also last admission he had MSSA in the urine. ER started him on vancomycin and Zosyn empirically which he will continue for now until cultures are back and taper the antibiotics when the culture are available. Gentle fluids and monitor in the med tele. CT of the head is okay. 2. Diagnosis of COVID. He was diagnosed with COVID on 05/25/2020 and rechecked on 05/26/2020, and was still positive. After that, he was not checked again, will check it again and see and continue isolation precautions for now. 3. Acute kidney injury. The patient's baseline creatinine was about 1.2 prior to last admission and peaked to 3.1 and at the time of discharge 2.1, currently is 1.6. He is supposed to follow outpatient with nephrology. 4. Urinary retention, benign prostatic hypertrophy, currently on Ulrich catheter. Needs followup with urology. There were some blood clots in the Ulrich as per the detention, but currently looks clear. If he developed any hematuria, will consult urology. Continue Ulrich care. 5. Parkinson disease. Continue Sinemet and amantadine. 6. Bladder calculi. Needs followup with urology. 7. Inguinal hernia in last admission. on ct scan.. Needs outpatient surgical followup when stable. 8. History of dementia. Will monitor for any delirium. 9. Deep venous thrombosis prophylaxis, sequential compression devices for now as patient is unable to monitor in the med tele. CODE STATUS: DNR/DNI as per my discussion with his power of trademark attorney. PT and OT prior to discharge. Social service to help with discharge planning. Discharge back to [facility] when patient is stable. ALOK
[2020-06-21] MEDS ORDERED: NYSTATIN CR 15 GM TUBE EXT PRN (04:13)
[2020-06-21] MEDS ORDERED: NYSTATIN POWDER 15GM BTL EXT PRN (04:13)
[2020-06-21] MEDS ORDERED: NITROGLYCERIN SL 0.4 MG/TAB TAB SL PRN (04:13)
[2020-06-21] MEDS ORDERED: POLYETHYLENE (MIRALAX) 17 GM PACK PO PRN (04:13)
[2020-06-21] MEDS ORDERED: ACETAMINOPHEN 325 MG TAB PO PRN (04:13)
[2020-06-21] MEDS ORDERED: DOCUSATE SODIUM 100 MG CAP PO PRN (04:13)
[2020-06-21] MEDS ORDERED: ONDANSETRON INJ 2 MG/ML 2 ML VIAL IV PRN (04:13)
[2020-06-21] MEDS ORDERED: diphenhydrAMINE Capsule 25 MG CAP PO PRN (04:13)
[2020-06-21] MEDS: D5W AND NSS 1,000 ML IV SCH ×2 (04:36→17:41)
[2020-06-21] MEDS ORDERED: PIPERACILLIN/TAZOBACTAM 3.375 GM in DEXTROSE 5% 100 ML IV SCH (06:00)
[2020-06-21 07:26] LABS: Basophils # (auto) 0.05 K/uL (0-0.2); Basophils % (auto) 0.4 %; Eosinophils % (auto) 0.8 %; Hematocrit (blood only) 40.6 % (42-52); Hemoglobin 12.9 g/dL (14.0-18.0); Immature Granulocytes # (auto) 0.03 K/uL (0.00-0.02); Immature Granulocytes % (auto) 0.2 %; Lymphocytes # (auto) 0.58 K/uL (1.2-3.4); Lymphocytes % (auto) 4.7 %; Mean Corpuscular Hemoglobin 28.3 pg (25-34); Mean Corpuscular Hgb Conc 31.8 g/dL (32-36); Mean Platelet Volume 9.5 fL (7.4-10.4); Monocytes # (auto) 0.67 K/uL (0.11-0.59); Monocytes % (auto) 5.5 %; Neutrophils # (auto) 10.81 K/uL (1.4-6.5); Neutrophils % (auto) 88.4 %; Platelet Count 266 K/uL (130-400); RDW Coefficient of Variation 13.8 % (11.5-14.5); RDW Standard Deviation 44.9 fL (36.4-46.3); Red Blood Count 4.56 M/uL (4.7-6.1); White Blood Count 12.24 K/uL (4.8-10.8)
[2020-06-21] MEDS: amLODIPine BESYLATE 5 MG TAB PO SCH (07:44)
[2020-06-21] MEDS: CARBIDOPA/LEVODOPA 25/100MG TAB PO SCH ×4 (07:44→20:33)
[2020-06-21 07:55] LABS: Calcium 8.6 mg/dl (8.5-10.1); Creatinine Clr Calc Pharmacy 37.7 ml/min; Est GFR (African American) 51.3; Est GFR (Non-African American) 44.2; Magnesium 1.9 mg/dl (1.8-2.4); Potassium 3.1 mmol/L (3.5-5.1)
[2020-06-21 09:21] LABS: Coronavirus 229E PCR Not Detected (NotDetected); Coronavirus HKU1 PCR Not Detected (NotDetected); Coronavirus NL63 PCR Not Detected (NotDetected); Coronavirus OC43PCR Not Detected (NotDetected)
[2020-06-21 09:23] LABS: Coronavirus CoV-2 (COVID19)PCR DETECTED (NotDetected)
[2020-06-21 09:24] LABS: Human Metapneumovirus PCR Not Detected (NotDetected); Influenza A PCR Not Detected (NotDetected); Influenza B PCR Not Detected (NotDetected); Rhinovirus/Enterovirus PCR Not Detected (NotDetected)
[2020-06-21 09:25] LABS: Bordetella parapertussis PCR Not Detected (NotDetected); Bordetella pertussis PCR Not Detected (NotDetected); Chlamydia pneumoniae PCR Not Detected (NotDetected); Mycoplasma pneumoniae PCR Not Detected (NotDetected); Parainfluenza Virus 1 PCR Not Detected (NotDetected); Parainfluenza Virus 2 PCR Not Detected (NotDetected); Parainfluenza Virus 3 PCR Not Detected (NotDetected); Parainfluenza Virus 4 PCR Not Detected (NotDetected); Respiratory Syncytial VirusPCR Not Detected (NotDetected)
[2020-06-21 09:28] LABS: Adenovirus PCR Not Detected (NotDetected)
[2020-06-21] MEDS: AMANTADINE HCL 100 MG CAPSULE PO SCH (09:28)
--- NOTE | 2020-06-21 14:15 | Electrocardiogram Report ---
Test Reason : Blood Pressure : / mmHG Vent. Rate : 071 BPM Atrial Rate : 071 BPM P-R Int : 186 ms QRS Dur : 088 ms QT Int : 350 ms P-R-T Axes : 006 -34 -27 degrees QTc Int : 380 ms Normal sinus rhythm Left axis deviation Nonspecific ST and T wave abnormality Abnormal ECG When compared with ECG of 04-JUN-2020 20:27, Borderline criteria for Anterior infarct are no longer Present Inverted T waves have replaced nonspecific T wave abnormality in Inferior leads Inverted T waves have replaced nonspecific T wave abnormality in Lateral leads Confirmed by Lenin Prater ([id number]) on 06/21/2020 2:15:00 PM Referred By: [facility] Confirmed By:Galileo Prater
[2020-06-21] MEDS: CEFEPIME 2,000 MG in SYRINGE 0 ML IV SCH (14:56)
[2020-06-21 16:28] LABS: Hematocrit (blood only) 39.4 % (42-52); Hemoglobin 12.8 g/dL (14.0-18.0)
--- NOTE | 2020-06-21 18:11 | Hospitalist Progress Note ---
Date of Service June 21, 2020 Assessment & Plan (1) Catheter-associated urinary tract infection: ASSESSMENT AND PLAN: This is a 74-year-old male who was recently diagnosed with COVID and history of urinary tract infection and urinary retention, comes back with confusion and for urinary tract infection. 1. Confusion, altered mental status, encephalopathy, mostly likely secondary to urinary tract infection, Pneumonia, R lower lobe? - History of pseudomonas, MSSA in the urine. - CT head no acute process - continue Cefepime IV ff up cultures - currently on 1:1 as patient pulled out IV Line and Adams cath 2. Diagnosis of COVID. -- He was diagnosed with COVID on 05/25/2020 and rechecked on 05/26/2020, and was still positive. - Covid Screen: PCR negative Covid Biofire: Positive - continue Isolation 3. Acute kidney injury. The patient's baseline creatinine was about 1.2 prior to last admission and peaked to 3.1 and at the time of discharge 2.1, currently is 1.6. - no 1.5 continue IV fluids 4. Urinary retention, benign prostatic hypertrophy, currently on Adams catheter. - (+) hematuria after adams cath removal DO NOT replace Adams tonight monitor for retention via Bladder scan if patient retaining, consult Urology 5. Parkinson disease. Continue Sinemet and amantadine. 6. Bladder calculi. Needs followup with urology. 7. Inguinal hernia in last admission. on ct scan.. Needs outpatient surgical followup when stable. 8. History of dementia. - (+) delirium this AM monitor 9. Deep venous thrombosis prophylaxis, sequential compression devices for due to hematuria CODE STATUS: DNR/DNI as per my discussion with his power of admitted attorneys. PT and OT prior to discharge. Social service to help with discharge planning. Discharge back to [facility] when patient is stable. Admission and Anticipated Discharge Date Admission Date: June 21, 2020 Subjective ff up for encephalopathy, possible UTI, COVID +, etc noted to be confused at noon, pulled out IV site and Adams Catheter, bleeding noted, resolved seen with 1:1 observation [employer] at bedside sleeping, comfortable, not in distress easily awakened, oriented to place states he feels fine no dyspnea, pain full ROS difficult to obtain due to cognitive status poor appetite per RN, [employer]PER[employer] no other issues Review of Systems Review of Systems: Unobtainable due to cognitive status Physical Exam Physical Exam: General- oriented x 1, not in distress, speaks in sentences with no effort or accessory muscle use Head- atraumatic Eyes- PERRL, EOMI, anicteric ENT- oropharynx clear Neck- supple, no JVD, no adenopathy, no thyromegaly; carotids +2/2, no bruits appreciated Lungs- clear to auscultation bilaterally, no rales/wheezes Heart- normal rate, regular rhythm; no murmur, no gallop, no rub appreciated Abdomen- normal bowel sounds, nondistended, soft, nontender, no masses or hepatosplenomegaly Extremities- no pretibial edema, no calf tenderness; peripheral pulses intact Genitalia- no active bleeding Neuro- sleeping but easily awakened, drowsy, oriented x 1; CN 2-12 grossly intact; moves all extremities equally, no other gross focal neurologic deficits Skin- warm & dry Results & Data Results & Data ([facility]) Vital Signs (Past 12 Hours) Vital Signs Temp Pulse Pulse Resp BP Pulse Ox 06/21/20 13:00 36.5 C 67 20 172/89 H 94 06/21/20 08:49 73 06/21/20 07:44 36.9 C 66 16 160/96 H 94 Laboratory Results Laboratory Results - last 24 hr 06/20/20 06/20/20 06/20/20 19:32 19:32 19:32 WBC 10.22 RBC 4.30 L Hgb 12.5 L Hct 38.3 L MCV 89.1 MCH 29.1 MCHC 32.6 RDW Std Deviation 45.0 RDW Coeff of Kayley 13.8 Plt Count 269 MPV 9.9 Immature Gran % (Auto) 0.4 Neut % (Auto) 82.0 Lymph % (Auto) 7.9 [place] % (Auto) 8.1 Eos % (Auto) 1.4 Baso % (Auto) 0.2 Neut # (Auto) 8.38 H Lymph # (Auto) 0.81 L [place] # (Auto) 0.83 H Eos # (Auto) 0.14 Baso # (Auto) 0.02 Immature Gran # (Auto) 0.04 H PT 11.2 INR 1.1 APTT 30.4 PTT Ratio 1.1 Sodium 140 Potassium 3.5 Chloride 105 Carbon Dioxide 29 Anion Gap 6.0 BUN 25 H Creatinine 1.65 H Est Cr Clr Drug Dosing 34.5 Est GFR ( Amer) 46.0 Est GFR (Non-Af Amer) 39.7 BUN/Creatinine Ratio 15.2 Glucose 129 H Calcium 8.7 Magnesium Total Bilirubin 0.5 AST 18 ALT 8 L Alkaline Phosphatase 62 Troponin I < 0.015 Total Protein 6.9 Albumin 2.5 L Globulin 4.4 H Albumin/Globulin Ratio 0.6 L Specimen Hemolysis Urine Color Urine Appearance Urine pH Ur Specific [place] Urine Protein Urine Glucose (UA) Urine Ketones Urine Blood Urine Nitrite Urine Bilirubin Urine Urobilinogen Ur Leukocyte Esterase Urine WBC (Auto) Urine RBC (Auto) U Hyaline Cast (Auto) U Epithel Cells (Auto) Urine Bacteria (Auto) Adenovirus (PCR) B. pertussis DNA (PCR) B.parapertussis DNA PCR C. pneumoniae DNA (PCR) Coronavirus OC43 (PCR) Coronavirus HKU1 (PCR) Coronavirus 229E (PCR) COVID-19 Eval Order COVID-19 PCR Coronavirus NL63 (PCR) Human Metapneumovir PCR Influenza Type A (PCR) Influenza Type B (PCR) M. pneumoniae (PCR) Parainfluenza 1 (PCR) Parainfluenza 2 (PCR) Parainfluenza 3 (PCR) Parainfluenza 4 (PCR) RSV (PCR) Entero/Rhino (PCR) SARS-CoV-2 RNA (RT-PCR) SARS-CoV-2, RNA, NAAT 06/20/20 06/21/20 06/21/20 21:45 00:43 00:43 WBC RBC Hgb Hct MCV MCH MCHC RDW Std Deviation RDW Coeff of Kayley Plt Count MPV Immature Gran % (Auto) Neut % (Auto) Lymph % (Auto) [place] % (Auto) Eos % (Auto) Baso % (Auto) Neut # (Auto) Lymph # (Auto) [place] # (Auto) Eos # (Auto) Baso # (Auto) Immature Gran # (Auto) PT INR APTT PTT Ratio Sodium Potassium Chloride Carbon Dioxide Anion Gap BUN Creatinine Est Cr Clr Drug Dosing Est GFR ( Amer) Est GFR (Non-Af Amer) BUN/Creatinine Ratio Glucose Calcium Magnesium Total Bilirubin AST ALT Alkaline Phosphatase Troponin I Total Protein Albumin Globulin Albumin/Globulin Ratio Specimen Hemolysis Urine Color Yellow Urine Appearance Turbid A Urine pH 7.5 Ur Specific [place] 1.012 Urine Protein 1+ H Urine Glucose (UA) Negative Urine Ketones Negative Urine Blood 3+ H Urine Nitrite Positive A Urine Bilirubin Negative Urine Urobilinogen Negative Ur Leukocyte Esterase 3+ H Urine WBC (Auto) >30 H Urine RBC (Auto) >30 H U Hyaline Cast (Auto) 5-10 H U Epithel Cells (Auto) 10-20 H Urine Bacteria (Auto) 1+ H Adenovirus (PCR) B. pertussis DNA (PCR) B.parapertussis DNA PCR C. pneumoniae DNA (PCR) Coronavirus OC43 (PCR) Coronavirus HKU1 (PCR) Coronavirus 229E (PCR) COVID-19 Eval [facility] COVID-19 PCR Coronavirus NL63 (PCR) Human Metapneumovir PCR Influenza Type A (PCR) Influenza Type B (PCR) M. pneumoniae (PCR) Parainfluenza 1 (PCR) Parainfluenza 2 (PCR) Parainfluenza 3 (PCR) Parainfluenza 4 (PCR) RSV (PCR) Entero/Rhino (PCR) SARS-CoV-2 RNA (RT-PCR) Cancelled SARS-CoV-2, RNA, NAAT 06/21/20 06/21/20 06/21/20 00:43 06:56 06:56 WBC 12.24 H RBC 4.56 L Hgb 12.9 L Hct 40.6 L MCV 89.0 MCH 28.3 MCHC 31.8 L RDW Std Deviation 44.9 RDW Coeff of Kayley 13.8 Plt Count 266 MPV 9.5 Immature Gran % (Auto) 0.2 Neut % (Auto) 88.4 Lymph % (Auto) 4.7 [place] % (Auto) 5.5 Eos % (Auto) 0.8 Baso % (Auto) 0.4 Neut # (Auto) 10.81 H Lymph # (Auto) 0.58 L [place] # (Auto) 0.67 H Eos # (Auto) 0.10 Baso # (Auto) 0.05 Immature Gran # (Auto) 0.03 H PT INR APTT PTT Ratio Sodium 141 Potassium 3.1 L Chloride 106 Carbon Dioxide 30 Anion Gap 6.0 BUN 21 H Creatinine 1.51 H Est Cr Clr Drug Dosing 37.7 Est GFR ( Amer) 51.3 Est GFR (Non-Af Amer) 44.2 BUN/Creatinine Ratio 14.0 Glucose 94 Calcium 8.6 Magnesium 1.9 Total Bilirubin AST ALT Alkaline Phosphatase Troponin I Total Protein Albumin Globulin Albumin/Globulin Ratio Specimen Hemolysis Urine Color Urine Appearance Urine pH Ur Specific [place] Urine Protein Urine Glucose (UA) Urine Ketones Urine Blood Urine Nitrite Urine Bilirubin Urine Urobilinogen Ur Leukocyte Esterase Urine WBC (Auto) Urine RBC (Auto) U Hyaline Cast (Auto) U Epithel Cells (Auto) Urine Bacteria (Auto) Adenovirus (PCR) B. pertussis DNA (PCR) B.parapertussis DNA PCR C. pneumoniae DNA (PCR) Coronavirus OC43 (PCR) Coronavirus HKU1 (PCR) Coronavirus 229E (PCR) COVID-19 Eval Order COVID-19 PCR Coronavirus NL63 (PCR) Human Metapneumovir PCR Influenza Type A (PCR) Influenza Type B (PCR) M. pneumoniae (PCR) Parainfluenza 1 (PCR) Parainfluenza 2 (PCR) Parainfluenza 3 (PCR) Parainfluenza 4 (PCR) RSV (PCR) Entero/Rhino (PCR) SARS-CoV-2 RNA (RT-PCR) SARS-CoV-2, RNA, NAAT NEGATIVE 06/21/20 06/21/20 07:53 16:19 WBC RBC Hgb 12.8 L Hct 39.4 L MCV MCH MCHC RDW Std Deviation RDW Coeff of Kayley Plt Count MPV Immature Gran % (Auto) Neut % (Auto) Lymph % (Auto) [place] % (Auto) Eos % (Auto) Baso % (Auto) Neut # (Auto) Lymph # (Auto) [place] # (Auto) Eos # (Auto) Baso # (Auto) Immature Gran # (Auto) PT INR APTT PTT Ratio Sodium Potassium Chloride Carbon Dioxide Anion Gap BUN Creatinine Est Cr Clr Drug Dosing Est GFR ( Amer) Est GFR (Non-Af Amer) BUN/Creatinine Ratio Glucose Calcium Magnesium Total Bilirubin AST ALT Alkaline Phosphatase Troponin I Total Protein Albumin Globulin Albumin/Globulin Ratio Specimen Hemolysis Urine Color Urine Appearance Urine pH Ur Specific [place] Urine Protein Urine Glucose (UA) Urine Ketones Urine Blood Urine Nitrite Urine Bilirubin Urine Urobilinogen Ur Leukocyte Esterase Urine WBC (Auto) Urine RBC (Auto) U Hyaline Cast (Auto) U Epithel Cells (Auto) Urine Bacteria (Auto) Adenovirus (PCR) Not Detected B. pertussis DNA (PCR) Not Detected B.parapertussis DNA PCR Not Detected C. pneumoniae DNA (PCR) Not Detected Coronavirus OC43 (PCR) Not Detected Coronavirus HKU1 (PCR) Not Detected Coronavirus 229E (PCR) Not Detected COVID-19 Eval Order COVID-19 PCR DETECTED A* Coronavirus NL63 (PCR) Not Detected Human Metapneumovir PCR Not Detected Influenza Type A (PCR) Not Detected Influenza Type B (PCR) Not Detected M. pneumoniae (PCR) Not Detected Parainfluenza 1 (PCR) Not Detected Parainfluenza 2 (PCR) Not Detected Parainfluenza 3 (PCR) Not Detected Parainfluenza 4 (PCR) Not Detected RSV (PCR) Not Detected Entero/Rhino (PCR) Not Detected SARS-CoV-2 RNA (RT-PCR) SARS-CoV-2, RNA, NAAT (1) Catheter-associated urinary tract infection Encounter type: initial encounter Indwelling urinary catheter type: indwelling urethral catheter Qualified Code(s): T83.511A - Infection and inflammatory reaction due to indwelling urethral catheter, initial encounter; N39.0 - Urinary tract infection, site not specified
[2020-06-21] MEDS: POTASSIUM CHLORIDE CRTAB 20 MEQ TABCR PO STA ×2 (18:30→18:41)
[2020-06-21 21:57] LABS: Hematocrit (blood only) 36.1 % (42-52); Hemoglobin 11.8 g/dL (14.0-18.0)
[2020-06-21] MEDS ORDERED: VANCOMYCIN HCL 1,250 MG in SODIUM CHLORIDE 0.9% 250 ML IV SCH (22:00)
[2020-06-22] MEDS: CEFEPIME 2,000 MG in SYRINGE 0 ML IV SCH ×2 (01:59→14:00)
[2020-06-22] MEDS ORDERED: POTASSIUM CHLORIDE PWD 20 MEQ PACK PO STA (04:24)
[2020-06-22] MEDS: D5W AND NSS 1,000 ML IV SCH ×2 (05:30→17:42)
[2020-06-22 06:09] LABS: Basophils # (auto) 0.03 K/uL (0-0.2); Basophils % (auto) 0.3 %; Eosinophils # (auto) 0.19 K/uL (0-0.5); Eosinophils % (auto) 1.8 %; Hematocrit (blood only) 36.5 % (42-52); Hemoglobin 11.6 g/dL (14.0-18.0); Immature Granulocytes # (auto) 0.02 K/uL (0.00-0.02); Immature Granulocytes % (auto) 0.2 %; Lymphocytes # (auto) 0.75 K/uL (1.2-3.4); Lymphocytes % (auto) 7.1 %; Mean Corpuscular Hemoglobin 28.4 pg (25-34); Mean Corpuscular Hgb Conc 31.8 g/dL (32-36); Mean Corpuscular Volume 89.2 fL (80-100); Mean Platelet Volume 9.6 fL (7.4-10.4); Monocytes # (auto) 0.56 K/uL (0.11-0.59); Monocytes % (auto) 5.3 %; Neutrophils # (auto) 8.97 K/uL (1.4-6.5); Neutrophils % (auto) 85.3 %; Platelet Count 205 K/uL (130-400); RDW Coefficient of Variation 14.1 % (11.5-14.5); RDW Standard Deviation 46.1 fL (36.4-46.3); Red Blood Count 4.09 M/uL (4.7-6.1); White Blood Count 10.52 K/uL (4.8-10.8)
[2020-06-22 06:43] LABS: BUN Creatinine Ratio 15.8 (10-20); Creatinine Clr Calc Pharmacy 37.8 ml/min; Est GFR (African American) 57.7; Est GFR (Non-African American) 49.7; Magnesium 1.9 mg/dl (1.8-2.4); Potassium 3.4 mmol/L (3.5-5.1)
[2020-06-22] MEDS: AMANTADINE HCL 100 MG CAPSULE PO SCH (08:54)
[2020-06-22] MEDS: POTASSIUM CHLORIDE PWD 20 MEQ PACK PO SCH (08:54)
[2020-06-22] MEDS: amLODIPine BESYLATE 5 MG TAB PO SCH (08:55)
[2020-06-22] MEDS: CARBIDOPA/LEVODOPA 25/100MG TAB PO SCH ×4 (08:55→20:56)
--- NOTE | 2020-06-22 19:45 | Hospitalist Progress Note ---
Date of Service June 22, 2020 Assessment & Plan (1) Catheter-associated urinary tract infection: ASSESSMENT AND PLAN: This is a 74-year-old male who was recently diagnosed with COVID and history of urinary tract infection and urinary retention, comes back with confusion and for urinary tract infection. 1. Metabolic encephalopathy, mostly likely secondary to urinary tract infection, Pseudomonas , catheter associated possible Covid pneumonitis, R lower lobe, - History of pseudomonas, MSSA in the urine. -Urine culture: Positive for Pseudomonas Blood cultures: Negative - CT head no acute process - Mental status improving Respiratory status stable - continue Cefepime IV Will need 10-day course of antibiotic, would prefer to avoid fluoroquinolones due to dementia, possible risk of altered mental status Will need IV cefepime times total of 10-day course, if cefepime can be given at [facility] Ulrich catheter as patient's urinary retention has resolved, based on bladder scan less than 100 cc 2. Recent Covid infection -- He was diagnosed with COVID on 05/25/2020 and rechecked on 05/26/2020, and was still positive. - Covid Screen: PCR negative Covid Biofire: Positive - continue Isolation 3. Acute kidney injury. The patient's baseline creatinine was about 1.2 prior to last admission and peaked to 3.1 and at the time of discharge 2.1, --Admission creatinine 1.5 given IV fluids, creatinine back to baseline, one-point 4. Urinary retention, benign prostatic hypertrophy, on Ulrich catheter. - (+) hematuria after patient pulled out Ulrich catheter DO NOT replace Ulrich Bladder scan less than 100 5. Parkinson disease. Continue Sinemet and amantadine. 6. Bladder calculi. Needs followup with urology. 7. Inguinal hernia in last admission. on ct scan.. Needs outpatient surgical followup when stable. 8. History of dementia. -Delirium resolved 9. Deep venous thrombosis prophylaxis, sequential compression devices for due to hematuria CODE STATUS: DNR/DNI as per my discussion with his power of admitted attorneys. Resident of [facility] We will need IV cefepime times at least 6 days Admission and Anticipated Discharge Date Admission Date: June 21, 2020 Subjective Follow-up for UTI, etc. Seen resting in bed, awake, alert, watching TV, comfortable, not in distress Patient is mostly confused but calm, cooperative States he feels good today Off one-to-one observation Follows simple commands Denies some shortness of breath, cough, abdominal pain No other symptoms Review of Systems Review of Systems: All systems reviewed & are unremarkable except as noted in Subjective Physical Exam Physical Exam: General- oriented x 1, not in distress, speaks in sentences with no effort or accessory muscle use Eyes- anicteric Neck- no JVD Lungs- clear BS BL Heart- normal rate, regular rhythm; no murmurs Abdomen- normal bowel sounds, nondistended, soft, nontender Extremities- no pretibial edema, no calf tenderness Neuro- alert, oriented x 1; no gross focal neurologic deficits Skin- warm & dry Results & Data Results & Data ([facility]) Vital Signs (Past 12 Hours) Vital Signs Temp Pulse Resp BP Pulse Ox 06/22/20 17:55 37 C 57 L 18 161/84 H 96 06/22/20 14:13 37.0 C 80 20 139/80 96 06/22/20 08:56 36.5 C 62 18 125/78 93 Laboratory Results Laboratory Results - last 24 hr 06/21/20 06/22/20 06/22/20 21:44 05:32 05:32 WBC 10.52 RBC 4.09 L Hgb 11.8 L 11.6 L Hct 36.1 L 36.5 L MCV 89.2 MCH 28.4 MCHC 31.8 L RDW Std Deviation 46.1 RDW Coeff of Kayley 14.1 Plt Count 205 MPV 9.6 Immature Gran % (Auto) 0.2 Neut % (Auto) 85.3 Lymph % (Auto) 7.1 [place] % (Auto) 5.3 Eos % (Auto) 1.8 Baso % (Auto) 0.3 Neut # (Auto) 8.97 H Lymph # (Auto) 0.75 L [place] # (Auto) 0.56 Eos # (Auto) 0.19 Baso # (Auto) 0.03 Immature Gran # (Auto) 0.02 Sodium 145 Potassium 3.4 L Chloride 112 H Carbon Dioxide 30 Anion Gap 3.0 BUN 22 H Creatinine 1.37 Est Cr Clr Drug Dosing 37.8 Est GFR ( Amer) 57.7 Est GFR (Non-Af Amer) 49.7 BUN/Creatinine Ratio 15.8 Glucose 94 Calcium 8.0 L Magnesium 1.9 (1) Catheter-associated urinary tract infection Encounter type: initial encounter Indwelling urinary catheter type: indwelling urethral catheter Qualified Code(s): T83.511A - Infection and inflammatory reaction due to indwelling urethral catheter, initial encounter; N39.0 - Urinary tract infection, site not specified
[2020-06-23] MEDS: CEFEPIME 2,000 MG in SYRINGE 0 ML IV SCH (01:44)
[2020-06-23] MEDS: POTASSIUM CHLORIDE PWD 20 MEQ PACK PO SCH (08:33)
[2020-06-23] MEDS: amLODIPine BESYLATE 5 MG TAB PO SCH (08:33)
[2020-06-23] MEDS: AMANTADINE HCL 100 MG CAPSULE PO SCH ×5 (08:34→22:17)
[2020-06-23] MEDS: CARBIDOPA/LEVODOPA 25/100MG TAB PO SCH ×4 (08:34→22:17)
[2020-06-23] MEDS: CIPROFLOXACIN 500 MG TAB PO SCH ×2 (12:51→22:17)
--- NOTE | 2020-06-23 20:13 | Hospitalist Progress Note ---
Date of Service June 23, 2020 Assessment & Plan (1) Catheter-associated urinary tract infection: ASSESSMENT AND PLAN: This is a 74-year-old male who was recently diagnosed with COVID and history of urinary tract infection and urinary retention, comes back with confusion and for urinary tract infection. 1. Metabolic encephalopathy, mostly likely secondary to urinary tract infection, Pseudomonas , catheter associated possible Covid pneumonitis, R lower lobe, - History of pseudomonas, MSSA in the urine. -Urine culture: Positive for Pseudomonas Blood cultures: Negative - CT head no acute process - Mental status continues to improve, calm, cooperative Respiratory status stable - continue Cefepime IV Will need 10-day course of antibiotic, transition to ciprofloxacin 500 mg twice daily Monitor in the hospital for adverse effects including altered mental status - DC Ulrich catheter as patient's urinary retention has resolved, based on bladder scan less than 100 cc 2. Recent Covid infection -- He was diagnosed with COVID on 05/25/2020 and rechecked on 05/26/2020, and was still positive. - Covid Screen: PCR negative Covid Biofire: Positive - continue Isolation 3. Acute kidney injury. The patient's baseline creatinine was about 1.2 prior to last admission and peaked to 3.1 and at the time of discharge 2.1, --Admission creatinine 1.5 given IV fluids, creatinine back to baseline 4. Urinary retention, benign prostatic hypertrophy, on Ulrich catheter. - (+) hematuria after patient pulled out Ulrich catheter DO NOT replace Ulrich Bladder scan less than 100 5. Parkinson disease. Continue Sinemet and amantadine. 6. Bladder calculi. Needs followup with urology. 7. Inguinal hernia in last admission. on ct scan.. Needs outpatient surgical followup when stable. 8. History of dementia. -Delirium resolved 9. Deep venous thrombosis prophylaxis, sequential compression devices for due to hematuria CODE STATUS: DNR/DNI as per my discussion with his power of litigation attorney associate. Resident of [facility] We will need IV cefepime times at least 6 days Admission and Anticipated Discharge Date Admission Date: June 21, 2020 Subjective Follow-up for encephalopathy, UTI, Covid infection history Seen sitting up in bed, watching TV, comfortable Alert, oriented, pleasantly confused More conversant States he feels fine overall Denies abdominal pain, nausea vomiting, fevers or chills Shortness of breath, chest pain or dizziness No other symptoms Able to eat independently, eating better per staff development nurse No other symptoms Review of Systems Review of Systems: All systems reviewed & are unremarkable except as noted in Subjective Physical Exam Physical Exam: General- oriented x1, pleasantly confused, not in distress, speaks in sentences with no effort or accessory muscle use Eyes- anicteric Neck- no JVD Lungs- clear breath sounds bilaterally, no rales/wheezes Heart- normal rate, regular rhythm; no murmurs Abdomen- normal bowel sounds, nondistended, soft, nontender Extremities- no pretibial edema, no calf tenderness Neuro- alert, oriented x 1; no gross focal neurologic deficits Skin- warm & dry Results & Data Results & Data ([facility]) Vital Signs (Past 12 Hours) Vital Signs Temp Pulse Resp BP Pulse Ox 06/23/20 11:10 36.9 C 71 18 133/84 94 06/23/20 08:12 36.9 C 72 18 169/94 H 96 (1) Catheter-associated urinary tract infection Encounter type: initial encounter Indwelling urinary catheter type: indwelling urethral catheter Qualified Code(s): T83.511A - Infection and inflammatory reaction due to indwelling urethral catheter, initial encounter; N39.0 - Urinary tract infection, site not specified
[2020-06-24 09:50] LABS: BUN Creatinine Ratio 18.6 (10-20); Calcium 8.8 mg/dl (8.5-10.1); Est GFR (African American) 58.7; Est GFR (Non-African American) 50.6; Magnesium 1.8 mg/dl (1.8-2.4)
[2020-06-24] MEDS: POTASSIUM CHLORIDE PWD 20 MEQ PACK PO SCH (10:08)
[2020-06-24] MEDS: CIPROFLOXACIN 500 MG TAB PO SCH ×2 (10:08→21:33)
[2020-06-24] MEDS: amLODIPine BESYLATE 5 MG TAB PO SCH (10:08)
[2020-06-24] MEDS: AMANTADINE HCL 100 MG CAPSULE PO SCH ×2 (10:09→21:33)
[2020-06-24] MEDS: CARBIDOPA/LEVODOPA 25/100MG TAB PO SCH ×4 (10:09→21:33)
--- NOTE | 2020-06-24 17:17 | Hospitalist Progress Note ---
Date of Service June 24, 2020 Assessment & Plan (1) Catheter-associated urinary tract infection: ASSESSMENT AND PLAN: This is a 74-year-old male who was recently diagnosed with COVID and history of urinary tract infection and urinary retention, comes back with confusion and for urinary tract infection. 1. Metabolic encephalopathy, mostly likely secondary to urinary tract infection, Pseudomonas , catheter associated possible Covid pneumonitis, R lower lobe, - History of pseudomonas, MSSA in the urine. -Urine culture: Positive for Pseudomonas Blood cultures: Negative - CT head no acute process - Mental status continues to improve, calm, cooperative Respiratory status stable - continue Cefepime IV Will need 10-day course of antibiotic, transitioned to ciprofloxacin 500 mg twice daily, tolerating well Monitor in the hospital for adverse effects including altered mental status - DC Ulrich catheter as patient's urinary retention has resolved, based on bladder scan less than 100 cc 2. Recent Covid infection -- He was diagnosed with COVID on 05/25/2020 and rechecked on 05/26/2020, and was still positive. - Covid Screen: PCR negative Covid Biofire: Positive - continue Isolation 3. Acute kidney injury. The patient's baseline creatinine was about 1.2 prior to last admission and peaked to 3.1 and at the time of discharge 2.1, --Admission creatinine 1.5 given IV fluids, creatinine back to baseline 4. Urinary retention, benign prostatic hypertrophy, on Ulrich catheter. - (+) hematuria after patient pulled out Ulrich catheter DO NOT replace Ulrich Bladder scan less than 100 5. Parkinson disease. Continue Sinemet and amantadine. 6. Bladder calculi. Needs followup with urology. 7. Inguinal hernia in last admission. on ct scan.. Needs outpatient surgical followup when stable. 8. History of dementia. -Delirium resolved 9. Deep venous thrombosis prophylaxis, sequential compression devices for due to hematuria CODE STATUS: DNR/DNI as per my discussion with his power of litigation attorney. Resident of [facility] [place] to [facility] [place] when [place] Admission and Anticipated Discharge Date Admission Date: June 21, 2020 Subjective Follow-up for encephalopathy, UTI Seen resting in bed, sitting up, watching TV, comfortable Alert, oriented x1-2, answers questions in sentences States he feels fine overall Denies abdominal pain, nausea vomiting No chest pain, shortness of breath, palpitations eating well No other symptoms Review of Systems Review of Systems: All systems reviewed & are unremarkable except as noted in Subjective Physical Exam Physical Exam: General- oriented x 1-2, not in distress, speaks in sentences with no effort or accessory muscle use Eyes- anicteric Neck- no JVD Lungs- clear BS BL Heart- normal rate, regular rhythm; no murmurs Abdomen- normal bowel sounds, nondistended, soft, nontender Extremities- no pretibial edema, no calf tenderness Neuro- alert, oriented x 1-2; no gross focal neurologic deficits Skin- warm & dry Results & Data Results & Data ([facility]) Vital Signs (Past 12 Hours) Vital Signs Temp Pulse Pulse Resp BP Pulse Ox 06/24/20 16:46 81 06/24/20 14:34 36.8 C 75 18 130/81 96 06/24/20 12:28 36.7 C 82 18 146/93 H 96 06/24/20 08:08 36.8 C 80 18 141/90 H 96 06/24/20 07:52 53 L (1) Catheter-associated urinary tract infection Encounter type: initial encounter Indwelling urinary catheter type: indwelling urethral catheter Qualified Code(s): T83.511A - Infection and inflammatory reaction due to indwelling urethral catheter, initial encounter; N39.0 - Urinary tract infection, site not specified
[2020-06-25] MEDS: CIPROFLOXACIN 500 MG TAB PO SCH ×2 (07:53→21:27)
[2020-06-25] MEDS: AMANTADINE HCL 100 MG CAPSULE PO SCH ×2 (07:53→21:28)
[2020-06-25] MEDS: CARBIDOPA/LEVODOPA 25/100MG TAB PO SCH ×4 (07:53→21:27)
[2020-06-25] MEDS: amLODIPine BESYLATE 5 MG TAB PO SCH (07:53)
--- NOTE | 2020-06-25 18:32 | Hospitalist Progress Note ---
Date of Service June 25, 2020 Assessment & Plan (1) Catheter-associated urinary tract infection: ASSESSMENT AND PLAN: This is a 74-year-old male who was recently diagnosed with COVID and history of urinary tract infection and urinary retention, comes back with confusion and for urinary tract infection. 1. Metabolic encephalopathy, mostly likely secondary to urinary tract infection, Pseudomonas , catheter associated possible Covid pneumonitis, R lower lobe, - History of pseudomonas, MSSA in the urine. - Urine culture: Positive for Pseudomonas Blood cultures: Negative - CT head no acute process - Mental status continues to improve, calm, cooperative Respiratory status stable - Cefepime IV changed to Ciprofloxacin Will need 10-day course of antibiotic, transitioned to ciprofloxacin 500 mg twice daily, tolerating well Monitor in the hospital for adverse effects including altered mental status - DC Ulrich catheter as patient's urinary retention has resolved, based on bladder scan less than 100 cc 2. Recent Covid infection -- He was diagnosed with COVID on 05/25/2020 and rechecked on 05/26/2020, and was still positive. - Covid Screen: PCR negative Covid Biofire: Positive - continue Isolation 3. Acute kidney injury. The patient's baseline creatinine was about 1.2 prior to last admission and peaked to 3.1 and at the time of discharge 2.1, --Admission creatinine 1.5 given IV fluids, creatinine back to baseline 4. Urinary retention, benign prostatic hypertrophy, on Ulrich catheter. - (+) hematuria after patient pulled out Ulrich catheter DO NOT replace Ulrich Bladder scan less than 100 5. Parkinson disease. Continue Sinemet and amantadine. 6. Bladder calculi. Needs followup with urology. 7. Inguinal hernia in last admission. on ct scan.. Needs outpatient surgical followup when stable. 8. History of dementia. -Delirium resolved 9. Deep venous thrombosis prophylaxis start Lovenox CODE STATUS: DNR/DNI as per my discussion with his power of trademark attorney. Resident of [facility] Return to [facility] when accepted Admission and Anticipated Discharge Date Admission Date: June 21, 2020 Subjective Follow-up for encephalopathy, UTI Seen resting in bed, comfortable, not in distress Sitting up, having dinner Awake, alert, oriented x2 per RN States he feels fine No new complaints Denies abdominal pain, nausea vomiting, chest pain, shortness of breath No other symptoms Review of Systems Review of Systems: All systems reviewed & are unremarkable except as noted in Subjective Physical Exam Physical Exam: General- oriented x2, not in distress, speaks in sentences with no effort or accessory muscle use Eyes- anicteric Neck- no JVD Lungs- clear BS bilaterally Heart- normal rate, regular rhythm; no murmurs Abdomen- normal bowel sounds, nondistended, soft, nontender Extremities- no pretibial edema, no calf tenderness Neuro- alert, oriented x 1; no gross focal neurologic deficits Skin- warm & dry Results & Data Results & Data ([facility]) Vital Signs (Past 12 Hours) Vital Signs Temp Pulse Resp BP Pulse Ox 06/25/20 17:42 91 H 20 128/77 96 06/25/20 15:54 36.7 C 60 20 170/90 H 97 (1) Catheter-associated urinary tract infection Encounter type: initial encounter Indwelling urinary catheter type: indwelling urethral catheter Qualified Code(s): T83.511A - Infection and inflammatory reaction due to indwelling urethral catheter, initial encounter; N39.0 - Urinary tract infection, site not specified
[2020-06-25] MEDS: ENOXAPARIN INJ 40 MG/0.4 ML SYR SQ SCH (21:28)
[2020-06-26] MEDS: CARBIDOPA/LEVODOPA 25/100MG TAB PO SCH ×4 (08:23→20:58)
[2020-06-26] MEDS: CIPROFLOXACIN 500 MG TAB PO SCH ×2 (08:23→20:58)
[2020-06-26] MEDS: amLODIPine BESYLATE 5 MG TAB PO SCH (08:24)
[2020-06-26] MEDS: AMANTADINE HCL 100 MG CAPSULE PO SCH ×2 (08:24→20:58)
--- NOTE | 2020-06-26 17:44 | Hospitalist Progress Note ---
Date of Service June 26, 2020 Assessment & Plan (1) Catheter-associated urinary tract infection: ASSESSMENT AND PLAN: This is a 74-year-old male who was recently diagnosed with COVID and history of urinary tract infection and urinary retention, comes back with confusion and for urinary tract infection. 1. Metabolic encephalopathy, secondary to urinary tract infection, Pseudomonas , catheter associated possible Covid pneumonitis, R lower lobe - History of pseudomonas, MSSA in the urine. - Urine culture: Positive for Pseudomonas Blood cultures: Negative - CT head no acute process - Mental status continues to improve, calm, cooperative Respiratory status stable, no cough, SOB - Cefepime IV (3 days) changed to Ciprofloxacin Day #3/7 Will need 10-day course of antibiotic, transitioned to ciprofloxacin 500 mg twice daily, tolerating well Monitor in the hospital for adverse effects including altered mental status - DC Ulrich catheter as patient's urinary retention has resolved, based on bladder scan less than 100 cc 2. Recent Covid infection -- He was diagnosed with COVID on 05/25/2020 and rechecked on 05/26/2020, and was still positive. - Covid Screen: PCR negative Covid Biofire: Positive - continue Isolation - awaiting recommendation from [facility] on when to repeat Covid Test, and whether Covid PCR or Biofir 3. Acute kidney injury. The patient's baseline creatinine was about 1.2 prior to last admission and peaked to 3.1 and at the time of discharge 2.1, --Admission creatinine 1.5 given IV fluids, creatinine back to baseline 4. Urinary retention, benign prostatic hypertrophy, on Ulrich catheter. - (+) hematuria after patient pulled out Ulrich catheter DO NOT replace Ulrich Bladder scan less than 100 5. Parkinson disease. Continue Sinemet and amantadine. 6. Bladder calculi. Needs followup with urology. 7. Inguinal hernia in last admission. on ct scan.. Needs outpatient surgical followup when stable. 8. History of dementia. -Delirium resolved 9. Deep venous thrombosis prophylaxis Lovenox [place] daily CODE STATUS: DNR/DNI as per discussion with his power of tax associate attorney. Disposition: Resident of [facility]--> PT recommending patient to be transitioned to a SNF Admission and Anticipated Discharge Date Admission Date: June 21, 2020 Subjective ff up for encephalopathy, UTI seen sitting up in chair, comfortable confused, but calm, cooperative states he feels fine denies shortness of breath, chest pain appetite is good Review of Systems Review of Systems: All systems reviewed & are unremarkable except as noted in Subjective Physical Exam Physical Exam: General- oriented x0, not in distress, speaks in sentences with no effort or accessory muscle use Eyes- anicteric Neck- no JVD Lungs- clear breath sounds bilaterally Heart- normal rate, regular rhythm; no murmurs Abdomen- normal bowel sounds, nondistended, soft, nontender Extremities- no pretibial edema, no calf tenderness Neuro- alert, oriented x 0; no gross focal neurologic deficits Skin- warm & dry Results & Data Results & Data ([facility]) Vital Signs (Past 12 Hours) Vital Signs Temp Pulse Pulse Resp BP Pulse Ox 06/26/20 16:26 36.4 C L 69 18 154/92 H 94 06/26/20 15:28 80 06/26/20 11:04 36.5 C 92 H 18 99/70 L 97 06/26/20 09:04 72 06/26/20 09:03 36.6 C 72 18 128/70 95 (1) Catheter-associated urinary tract infection Encounter type: initial encounter Indwelling urinary catheter type: indwelling urethral catheter Qualified Code(s): T83.511A - Infection and inflammatory reaction due to indwelling urethral catheter, initial encounter; N39.0 - Urinary tract infection, site not specified
[2020-06-26] MEDS: ENOXAPARIN INJ 40 MG/0.4 ML SYR SQ SCH (20:58)
[2020-06-27] MEDS: amLODIPine BESYLATE 5 MG TAB PO SCH (09:37)
[2020-06-27] MEDS: CARBIDOPA/LEVODOPA 25/100MG TAB PO SCH ×4 (09:38→20:23)
[2020-06-27] MEDS: AMANTADINE HCL 100 MG CAPSULE PO SCH ×2 (09:38→20:23)
[2020-06-27] MEDS: CIPROFLOXACIN 500 MG TAB PO SCH ×2 (09:39→20:23)
[2020-06-27 14:11] LABS: Calcium 8.4 mg/dl (8.5-10.1); Est GFR (African American) 55.2; Est GFR (Non-African American) 47.6; Magnesium 2.2 mg/dl (1.8-2.4); Potassium 4.4 mmol/L (3.5-5.1)
[2020-06-27 14:47] LABS: Adenovirus PCR Not Detected (NotDetected); Bordetella parapertussis PCR Not Detected (NotDetected); Bordetella pertussis PCR Not Detected (NotDetected); Chlamydia pneumoniae PCR Not Detected (NotDetected); Coronavirus 229E PCR Not Detected (NotDetected); Coronavirus HKU1 PCR Not Detected (NotDetected); Coronavirus NL63 PCR Not Detected (NotDetected); Coronavirus OC43PCR Not Detected (NotDetected); Human Metapneumovirus PCR Not Detected (NotDetected); Influenza A PCR Not Detected (NotDetected); Influenza B PCR Not Detected (NotDetected); Mycoplasma pneumoniae PCR Not Detected (NotDetected); Parainfluenza Virus 1 PCR Not Detected (NotDetected); Parainfluenza Virus 2 PCR Not Detected (NotDetected); Parainfluenza Virus 3 PCR Not Detected (NotDetected); Parainfluenza Virus 4 PCR Not Detected (NotDetected); Respiratory Syncytial VirusPCR Not Detected (NotDetected); Rhinovirus/Enterovirus PCR Not Detected (NotDetected)
[2020-06-27 14:48] LABS: Coronavirus CoV-2 (COVID19)PCR DETECTED (NotDetected)
[2020-06-27] MEDS: ENOXAPARIN INJ 40 MG/0.4 ML SYR SQ SCH (20:23)
--- NOTE | 2020-06-27 21:06 | Hospitalist Progress Note ---
Date of Service June 27, 2020 Assessment & Plan (1) Catheter-associated urinary tract infection: ASSESSMENT AND PLAN: This is a 74-year-old male who was recently diagnosed with COVID and history of urinary tract infection and urinary retention, s/p Ulrich catheter placement comes back with confusion and for urinary tract infection. 1. Metabolic encephalopathy, secondary to urinary tract infection, Pseudomonas , catheter associated possible Covid pneumonitis, R lower lobe - History of pseudomonas, MSSA in the urine. - Urine culture: Positive for Pseudomonas Blood cultures: Negative - CT head no acute process - Mental status continues to improve, calm, cooperative Respiratory status stable, no cough, SOB - Cefepime IV (3 days) changed to Ciprofloxacin PO Will need 10-day course of antibiotic, transitioned to ciprofloxacin 500 mg twice daily, tolerating well Day #4/7 Tolerating ciprofloxacin well Repeat EKG after completion of ciprofloxacin to monitor for QT prolongation -Ulrich catheter has been discontinued as patient's urinary retention has resolved, based on bladder scan less than 100 cc 2. Recent Covid infection -- He was diagnosed with COVID on 05/25/2020 and rechecked on 05/26/2020, and was still positive. -On admission- Covid PCR by nasal swab: Negative Bio Viadeo panel: Covid positive -Isolation continued -Repeat bio fire panel 06/27/2020: Covid positive Continue isolation 3. Acute kidney injury. The patient's baseline creatinine was about 1.2 prior to last admission and peaked to 3.1 and at the time of discharge 2.1, --Admission creatinine 1.5 given IV fluids, creatinine back to baseline 4. Urinary retention, benign prostatic hypertrophy, on Ulrich catheter. - (+) hematuria after patient pulled out Ulrich catheter DO NOT replace Ulrich Bladder scan less than 100 5. Parkinson disease. Continue Sinemet and amantadine. 6. Bladder calculi. Needs followup with urology. 7. Inguinal hernia in last admission. on ct scan.. Needs outpatient surgical followup when stable. 8. History of dementia. -Delirium resolved 9. Deep venous thrombosis prophylaxis Lovenox [place] daily CODE STATUS: DNR/DNI as per discussion with his power of insurance defense attorney. Disposition: Resident of [facility]--> PT recommending patient to be transitioned to a rehab or SNF Transition to [facility] tomorrow when accepted Admission and Anticipated Discharge Date Admission Date: June 21, 2020 Subjective ff up for encephalopathy secondary to UTI, history of Covid infection last month Seen sitting up in bed, comfortable, awake, pleasantly confused States he feels fine overall Shortness of breath, cough, chest pain No abdominal pain, nausea vomiting Appetite is good No other symptoms Review of Systems Review of Systems: All systems reviewed & are unremarkable except as noted in Subjective Physical Exam Physical Exam: General- oriented x 1, not in distress, speaks in sentences with no effort or accessory muscle use Eyes- anicteric Neck- no JVD Lungs- clear breath sounds bilaterally Heart- normal rate, regular rhythm; no murmurs Abdomen- normal bowel sounds, nondistended, soft, nontender Extremities- no pretibial edema, no calf tenderness Neuro- alert, oriented x 1; no new gross focal neurologic deficits Skin- warm & dry Results & Data Results & Data ([facility]) Vital Signs (Past 12 Hours) Vital Signs Temp Pulse Pulse Resp BP Pulse Ox 06/27/20 18:48 37.3 C 71 18 114/67 97 06/27/20 16:35 36.4 C L 72 18 143/97 H 97 06/27/20 15:21 73 06/27/20 13:19 55 L 06/27/20 11:30 37.1 C 64 18 151/89 H 96 (1) Catheter-associated urinary tract infection Encounter type: initial encounter Indwelling urinary catheter type: indwelling urethral catheter Qualified Code(s): T83.511A - Infection and inflammatory reaction due to indwelling urethral catheter, initial encounter; N39.0 - Urinary tract infection, site not specified
[2020-06-28] MEDS: CARBIDOPA/LEVODOPA 25/100MG TAB PO SCH ×2 (08:31→12:05)
[2020-06-28] MEDS: amLODIPine BESYLATE 5 MG TAB PO SCH (08:31)
[2020-06-28] MEDS: AMANTADINE HCL 100 MG CAPSULE PO SCH (08:31)
[2020-06-28] MEDS: CIPROFLOXACIN 500 MG TAB PO SCH (08:31)
--- NOTE | 2020-06-28 10:37 | Discharge Summary ---
Date of Service June 28, 2020 Admission HPI Per Admitting Provider 74-year-old male with past medical history significant for BPH, history of urinary retention, currently on Ulrich catheter, history of Parkinson disease, history of sensorineural hearing loss bilaterally, mild cognitive impairment, history of elevated bilirubin, who was recently admitted on 06/05/2020 for confusion and COVID and also urinary tract infection. He was here from 06/05/2020 to 06/16/2020. He was first diagnosed with COVID on 05/25/2020 and he was discharged on 06/16/2020 back to [facility]. During the hospitalization, hospital course was complicated by ANGE, creatinine increased to 3.2 and trended to 2.1 and seen by nephrology and has a followup appointment with nephrology, and also bladder calculi was found and was supposed to follow with urology as outpatient, urinary retention. Has a Ulrich catheter placed. Also right inguinal hernia was noted on the CAT scan and to follow outpatient surgically. In the skilled nursing today, the patient was more confused than his usual, somewhat agitated and they found some clots in the Ulrich bag, so that is the reason they brought him back here. Here, the patient is hemodynamically stable, afebrile, no leukocytosis. Creatinine is 1.6, improved from the discharge. Urinalysis again positive with +3 leukocyte esterase and +[address] of head is unremarkable. Chest x-ray, mild patchy airspace opacity again seen in the right mid lung. The patient is only oriented to name currently. He does not know where he is. Denies any pain. Drowsy, obeys simple commands like opening the mouth or moving his extremities, but could not get as much history from the patient. Most of the history got from the skilled nursing and talked to his power of state's attorney, his family member, and he is DNR/DNI. Admission Exam Per Admitting Provider PHYSICAL EXAMINATION: GENERAL: The patient is of moderate build, not in acute distress, somewhat confused. VITAL SIGNS: Temperature 37.2, pulse 76, respiratory rate 22, blood pressure 132/81, oxygen 96% on room air. HEENT: Atraumatic. Oral mucosa dry. NECK: No JVD, no neck masses seen. CARDIOVASCULAR: S1, S2 heard, regular rate and rhythm, no murmur, no gallop. RESPIRATORY SYSTEM: Normal AP diameter. No accessory muscle use. No wheezing, no crackles. ABDOMEN: Soft, bowel sounds present, nontender. No distention. CENTRAL NERVOUS SYSTEM: Drowsy, oriented to name only. Obeys simple commands, moves extremities. No facial droop seen. Speech is clear. EXTREMITIES: No edema, no erythema. Principal Diagnosis 1. Catheter-associated urinary tract infection: 2. Recent Covid infection 3. Acute kidney injury. 4. Urinary retention, benign prostatic hypertrophy, on Ulrich catheter. 5. Parkinson disease. Continue Sinemet and amantadine. 6. Bladder calculi. Needs followup with urology. 7. Inguinal hernia in last admission. 8. History of dementia. Discharge Exam Physical Exam Gen-AAO x 3, NAD, Afebrile Head-NCAT, EOMI, PERRLA, Anicteric Sclera, No Posterior Pharyngeal Erythema Neck-Supple, No JVD, No Thyromegaly, No Masses, No LAD, No Bruits Lungs-Clear to Auscultation Bilaterally, No Rales, No Rhonchi, No Wheezing, No Crepitus Chest-No S4, +S1, +S2, No S3, No Murmurs, No Rubs, No Gallops, No Ectopy Abdomen-Soft, Bowel Sounds Present, Non Tender, Non Distended, No Hepatomegaly, No Splenomegaly, No Palpable Masses, No Rebound, No Rigidity, No Guarding Musculoskeletal-Full Range of Motion Bilaterally, No CVAT Extremities-No Cyanosis, No Clubbing, No Edema Nuero-Cranial Nerves II-XII grossly intact, Motor WNL, DTRs WNL, Strength WNL, Non Focal Psych-Normal Mood Discharge Data Allergies Allergy/AdvReac Type Severity Reaction Status Date / Time No Known Allergies Allergy Verified 06/20/20 22:51 Consultations 06/20/20 22:37 ED Decision to Admit Stat 06/21/20 04:13 Consult Case Management - Discharge Planning Routine Ordered Studies 06/20/20 19:33 CT head/brain wo con Stat Current Diagnoses Urinary tract infection, site not specified (06/21/20) Infection and inflammatory reaction due to indwelling urethral catheter, initial encounter (06/21/20) Allergies No Known Allergies Allergy (Verified 06/20/20 22:51) Height/Weight/Isolation Height 5 ft 11 in Weight 60.7 kg Isolation Type Airborne Precautions,Contact Precautions Chemistry 06/27/20 13:40 Sodium 138 Potassium 4.4 Chloride 108 H Carbon Dioxide 25 Anion Gap 5.0 BUN 37 H Creatinine 1.42 H Glucose 117 H Microbiology 06/20/20 19:32 Blood Aerobic Blood Culture - Final No growth in Aerobic bottle after 5 days. 06/20/20 19:32 Blood Anaerobic Blood Culture - Final No growth in Anaerobic bottle after 5 days. 06/20/20 19:32 Blood Aerobic Blood Culture - Final No growth in Aerobic bottle after 5 days. 06/20/20 19:32 Blood Anaerobic Blood Culture - Final No growth in Anaerobic bottle after 5 days. Hospital Course (1) Catheter-associated urinary tract infection: ASSESSMENT AND PLAN: This is a 74-year-old male who was recently diagnosed with COVID and history of urinary tract infection and urinary retention, s/p Ulrich catheter placement comes back with confusion and for urinary tract infection. 1. Metabolic encephalopathy, secondary to urinary tract infection, Pseudomonas , catheter associated - History of pseudomonas, MSSA in the urine. - Urine culture: Positive for Pseudomonas Blood cultures: Negative - CT head no acute process - Mental status continues to improve, calm, cooperative Respiratory status stable, no cough, SOB - Cefepime IV (3 days) changed to Ciprofloxacin PO Will need 10-day course of antibiotic, transitioned to ciprofloxacin 500 mg twice daily, tolerating well Day #5/7 Tolerating ciprofloxacin well Repeat EKG after completion of ciprofloxacin to monitor for QT prolongation -Ulrich catheter has been discontinued as patient's urinary retention has resolved, based on bladder scan less than 100 cc 2. Recent Covid infection -- He was diagnosed with COVID on 05/25/2020 and rechecked on 05/26/2020, and was still positive. On admission-Covid PCR by nasal swab: Negative Bio DosYogures panel: Covid positive -Isolation continued -Repeat bio fire panel 06/27/2020: Covid positive Continue isolation 3. Acute kidney injury. The patient's baseline creatinine was about 1.2 prior to last admission and peaked to 3.1 and at the time of discharge 2.1, --Admission creatinine 1.5 given IV fluids, creatinine back to baseline 4. Urinary retention, benign prostatic hypertrophy, on Ulrich catheter. - (+) hematuria after patient pulled out Ulrich catheter DO NOT replace Ulrich Bladder scan less than 100 5. Parkinson disease. Continue Sinemet and amantadine. 6. Bladder calculi. Needs followup with urology. 7. Inguinal hernia in last admission. on ct scan.. Needs outpatient surgical followup when stable. 8. History of dementia. -Delirium resolved 9. Deep venous thrombosis prophylaxis Lovenox SC daily CODE STATUS: DNR/DNI as per discussion with his power of state's attorney. Disposition: Resident of [facility]--> PT recommending patient to be transitioned to a rehab or SNF [facility] to [facility] today Home Isolation COVID-19 Instructions The following information about Home Isolation is from the CDC Website: https://www.cdc.gov/coronavirus/2019-ncov/hcp/vqjdfyfe-geqfsvp-jnpgbx.html Stay home except to get medical care People who are mildly ill with COVID-19 are able to isolate at home during their illness. You should restrict activities outside your home, except for getting medical care. Do not go to work, school, or public areas. Avoid using public transportation, ride-sharing, or taxis. Separate yourself from other people and animals in your home People: As much as possible, you should stay in a specific room and away from other people in your home. Also, you should use a separate bathroom, if avai lable. Animals: You should restrict contact with pets and other animals while you are sick with COVID-19, just like you would around other people. Although there have not been reports of pets or other animals becoming sick with COVID-19, it is still recommended that people sick with COVID-19 limit contact with animals until more information is known about the virus. When possible, have another member of your household care for your animals while you are sick. If you are sick with COVID-19, avoid contact with your pet, including petting, snuggling, being kissed or licked, and sharing food. If you must care for your pet or be around animals while you are sick, wash your hands before and after you interact with pets and wear a face mask. Call ahead before visiting your doctor If you have a medical appointment, call the healthcare provider and tell them that you have or may have COVID-19. This will help the healthcare providers office take steps to keep other people from getting infected or exposed. Wear a face mask You should wear a face mask when you are around other people (e.g., sharing a room or vehicle) or pets and before you enter a healthcare providers office. If you are not able to wear a face mask (for example, because it causes trouble breathing), then people who live with you should not stay in the same room with you, or they should wear a face mask if they enter your room. Cover your coughs and sneezes Cover your mouth and nose with a tissue when you cough or sneeze. Throw used tissues in a lined trash can. Immediately wash your hands with soap and water for at least 20 seconds or, if soap and water are not available, clean your hands with an alcohol-based hand heel turner that contains at least 60% alcohol. Clean your hands often Wash your hands often with soap and water for at least 20 seconds, especially after blowing your nose, coughing, or sneezing; going to the bathroom; and before eating or preparing food. If soap and water are not readily available, use an alcohol-based hand heel turner with at least 60% alcohol, covering all surfaces of your hands and rubbing them together until they feel dry. Soap and water are the best option if hands are visibly dirty. Avoid touching your eyes, nose, and mouth with unwashed hands. Avoid sharing personal household items You should not share dishes, drinking glasses, cups, eating utensils, towels, or bedding with other people or pets in your home. After using these items, they should be washed thoroughly with soap and water. Clean all high-touch surfaces everyday High touch surfaces include counters, tabletops, doorknobs, bathroom fixtures, toilets, phones, keyboards, tablets, and bedside tables. Also, clean any surfaces that may have blood, stool, or body fluids on them. Use a household cleaning spray or wipe, according to the label instructions. Labels contain instructions for safe and effective use of the cleaning product including precautions you should take when applying the product, such as wearing gloves and making sure you have good ventilation during use of the product. Monitor your symptoms Seek prompt medical attention if your illness is worsening (e.g., difficulty breathing).Beforeseeking care, call your healthcare provider and tell them that you have, or are being evaluated for, COVID-19. Put on a face mask before you enter the facility. These steps will help the healthcare providers office to keep other people in the office or waiting room from getting infected or exposed. Ask your healthcare provider to call the local or state health department. Persons who are placed under active monitoring or facilitated self- monitoring should follow instructions provided by their local health department or occupational health professionals, as appropriate. When working with your local health department check their available hours. If you have a medical emergency and need to call 911, notify the dispatch personnel that you have, or are being evaluated for COVID-19. If possible, put on a face mask before emergency medical services arrive. Discontinuing home isolation Patients with confirmed COVID-19 should remain under home isolation precautions until the risk of secondary transmission to others is thought to be low. The decision to discontinue home isolation precautions should be made on a [id number] basis, in consultation with healthcare providers and [facility] and [facility] health departments. Total Time Total Time Spent Total Time Spent (In Minutes): 50 mins Total Time Includes: Examination of the Patient, Discharge Planning, Medication Reconciliation and Communication With Other Providers Discharge Plan Discharge Items Patient Disposition: Transfer Inpatient Rehab Fac Reason For Visit: HEMATURIA, AMS Discharge Diagnosis: 1. Catheter-associated urinary tract infection: 2. Recent Covid infection 3. Acute kidney injury. 4. Urinary retention, benign prostatic hypertrophy, on Ulrich catheter. 5. Parkinson disease. Continue Sinemet and amantadine. 6. Bladder calculi. Needs followup with urology. 7. Inguinal hernia in last admission. 8. History of dementia. Condition on Discharge: Fair Activity: Resume your previous activity Activity Comment: Continue PT and OT, fall precautions Lifting: None Bathing: No limitations Exercise/Sports: None Driving/Machine Use: No limitations Weightbearing: Full weightbearing Non-emergency contact: Primary Care Provider Call non-emergency contact if: you have any medication questions, your symptoms worsen, your pain is not controlled, your pain is worsening, your pain is unusual for you, your pain is concerning for you, your wound has increased redness, your wound has increased drainage and your wound pain has increased Diet: Heart Healthy Diet Texture: Pureed (blended smooth) Diet Comment: Needs supervision with meals Addtl Attending Provider Instructions: Please refer to accompanying hospital discharge summary for full details. Speech therapy recommendations Aspiration precautions: Alternate solids and liquids Fully alert and upright Give meds in a carrier Single bites/small sips/slow rate Pured diet Pending Studies at Discharge: No Studies:: Repeat basic metabolic profile and EKG in 2 days (monitor kidney function and QT prolongation while on ciprofloxacin) Stand-Alone Forms: [employer], Smoking Cessation Skilled Items Patient informed of condition?: Yes DNR: Yes Discharge Level of Care: Acute rehab Communicable Disease: Yes Discharge Prognosis: Improving Lines: None Urinary Catheter: No Medications and DC Order Prescriptions: New ciprofloxacin HCl 500 mg Tablet 500 mg PO BID Qty: 6 RF: 0 enoxaparin 40 mg/0.4 mL Syringe 40 mg subcut Q24H 30 Days Qty: 12 RF: 0 Continued amlodipine 2.5 mg tablet 2.5 mg PO DAILY RF: 0 amantadine HCl 100 mg capsule 100 mg PO BID Qty: 60 RF: 5 carbidopa-levodopa 25-100 mg tablet 1 tab PO QID RF: 0 acetaminophen 325 mg capsule 650 mg PO Q4H MDD 3 GMS APAP/24 HOURS PRN (Reason: Fever Or Pain) RF: 0 nystatin 100,000 unit/gram Cream 1 applic TOPICAL BID PRN (Reason: Rash) RF: 0 diphenhydramine HCl [Banophen] 25 mg Tablet 25 mg PO Q6H PRN (Reason: Allergy Symptoms) RF: 0 docusate sodium 100 mg capsule 100 mg PO DAILY PRN (Reason: Constipation) RF: 0 carbamide peroxide [Ear Wax Drops] 6.5 % Drops 5 drp OTIC (EAR) Q12H PRN (Reason: Ear Wax Removal) RF: 0 nystatin [Nystop] 100,000 unit/gram Powder 1 applic TOPICAL DIRECTED PRN (Reason: Yeast Infection) RF: 0 Discharge Orders: Discharge Order (Routine); Ordered 06/28/20 Ordered By: Jewel Galindo/Other Patient Handouts: COVID-19 Home Care Admission Data Admit Date/Time: 06/21/20 00:53 Attending Provider: Jewel Cobos Admit Provider: Anatoliy Blue Primary Care Provider: JENARO Bloom Other Providers: Anatoliy Blue ; [facility]
--- NOTE | 2020-06-28 15:50 | Electrocardiogram Report ---
Test Reason : Blood Pressure : / mmHG Vent. Rate : 071 BPM Atrial Rate : 071 BPM P-R Int : 180 ms QRS Dur : 100 ms QT Int : 380 ms P-R-T Axes : 022 -47 006 degrees QTc Int : 412 ms Normal sinus rhythm Left anterior fascicular block Nonspecific T wave abnormality Abnormal ECG When compared with ECG of 20-JUN-2020 19:23, No significant change was found Confirmed by Mitul Tay ([id number]) on 06/28/2020 3:49:43 PM Referred By: [facility] Emmanuel Wray Confirmed By:Mitul Tay
--- NOTE | 2020-07-12 12:00 | Coding Query ---
CODING QUERY To promote full compliance with coding requirements relating to patient care, provider participation is requested in all cases of master data analyst uncertainty. Please assist us with the question(s) below: Coding Question(s): The Discharge Summary documents recent Covid infection and documents, "He was diagnosed with COVID on 05/25/2020 and rechecked on 05/26/2020, and was still positive. On admission-Covid PCR by nasal swab: Negative Bio fire panel: Covid positive -Isolation continued -Repeat bio fire panel 06/27/2020: Covid positive Continue isolation" and there is documentation on addendum on on Progress Note 06/21/20 of Covid Pneumonitis as well as documentation of Pneumonia, R lower lobe. It is not clear if there was a diagnosis on this admit of COVID-19, COVID-19 Pneumonia and/or other Pneumonia R lower lobe or if all or some of these are ruled-out. Please specify below, in your clinical opinion regarding each of the diagnosis to be sure it is accurately captured. COVID-19 (X ) COVID-19 on this admission ( ) COVID-19 is RULED-OUT, there is a positive result but it is felt to be Ruled-Out ( ) Other: Please Specify COVID-19 PNEUMONIA (X ) COVID-19 PNEUMONIA on this admission ( ) COVID-19 PNEUMONIA is RULED-OUT ( ) Other: Please Specify PNEUMONIA RLL ( ) PNEUMONIA RLL, not due to COVID, on this admission. Please Specify further below: ( ) Unspecified RLL Pneumonia ( ) Other RLL Pneumonia - Please Specify ( ) PNEUMONIA RLL, not due to COVID is RULED-OUT ( ) Other: Please Specify Physician's Response(s): Thank you Joanne Joy Principal Diagnosis: "that condition established after study, to be chiefly responsible for occasioning the admission of the patient to the hospital for care." Co-Existing Principal Diagnosis: "when two or more diagnoses equally meet the criteria for principal diagnosis as determined by the circumstances of admission, diagnostic work up, and/or therapy provided, and the Alphabetic Index, Tabular List, or another coding guideline does not provide sequencing direction, any one of the diagnoses may be sequenced first." "When the physician has documented what appears to be a current diagnosis in the body of the record, but has not included the diagnosis in the final diagnostic statement, the physician should be asked whether the diagnosis should be added." (Source Coding Clinic 2 QTR90. p3-4) ALOK
== END 2020-06-28 13:25 | DRG 177 ==
LOC: ED 19:16 → SUATTDRO 06-21 00:53 → 2W 06-21 00:53

== ENCOUNTER 2020-09-07 18:30 | Inpatient (IN) ==
--- NOTE | 2020-09-07 19:21 | Emergency Department Note ---
Impression & Plan Fracture of right hip, Fall ED Provider Note NAME: NAHEED BOWIE AGE: 74 SEX: M : 1945 ARRIVES VIA: Ambulance INFORMANT: [Patient][ems] ED PROVIDER(S): [Claudio Valerio MD] CHIEF COMPLAINT: Fall HISTORY OF PRESENT ILLNESS: Patient is a 74-year-old male who states that he had a misstep and his feet got caught and he fell. He fell onto his right side and now has right hip pain. He cannot bear any weight. When he tries to bear weight, the pain is a 10/10. Sitting still and not moving, he has minimal to no pain. There was no loss of consciousness. He has no neck pain or headache. There is no chest pain or shortness of breath, no back pain. His upper extremities are not injured. The patient states that he was having a normal day today until he fell. He has not been sick or ill. He was brought by ambulance for evaluation for the possibility of a hip fracture. REVIEW OF SYSTEMS: See HPI for pertinent positives and negatives. A total of ten systems were reviewed and were otherwise negative. PMHx/PSHx: See Below SOCIAL HISTORY: See Below. PHYSICAL EXAM: GENERAL: Patient is in no acute distress. HEENT: No acute trauma, normocephalic atraumatic, mucous membranes moist, no nasal congestion, no scleral icterus. NECK: No stridor, no adenopathy, nontender cervical spine, trachea is midline. LUNGS: Clear to auscultation bilaterally, no wheeze, no rhonchi, breath sounds equal. HEART: Without murmurs gallops or rubs, regular rate and rhythm. ABDOMEN: Soft, nontender, bowel sounds positive, there is a nontender right inguinal hernia, no peritonitis. EXTREMITIES: No cyanosis or edema. There is no right knee or right ankle or ri ght foot pain. There is some subtle shortening of the right lower extremity in comparison to the left. He does have some pain with movement of the right hip, there is minimal pain with right hip palpation. NEUROLOGIC: Awake and alert, no acute motor or sensory deficits, no focal weakness. SKIN: No rash, no jaundice, no diaphoresis. DIFFERENTIAL DIAGNOSIS: Hip fracture, hip dislocation, neurovascular compromise, pelvic fracture, compartment syndrome, contusion or strain, soft tissue injury, as well as other pathologies. EMERGENCY DEPARTMENT COURSE/PROCEDURES: ECG: Indication was hip fracture. The ECG shows a normal sinus rhythm with a rate of 65. There is some diffuse nonspecific ST change. The QTc is 399. There is no ST elevation, no PVCs. Continuous Cardiac Monitoring: An order was placed for continuous cardiac monitoring. The monitor shows a rate of 78 with normal sinus rhythm. MEDICAL DECISION MAKING: There is no leukocytosis or concerning anemia. There is a normal platelet count. No coagulopathy. No significant electrolyte abnormality or kidney failure. Chest film showed some chronic change, there was a hiatal hernia. There was no pneumonia, no free air. Pelvis and right hip films show a right subcapital hip fracture, no pelvis fracture. On exam, there was no evidence for injury to the head, neck, chest, back or abdomen. His only area of pain seemed to be in the right hip. The patient did not want anything for pain. He felt okay if he was still. I spoke to orthopedics, I spoke with the on-call hospitalist. I talked to the patient about his findings. Case management has been involved. The patient is going to require orthopedic intervention. His injuries appear isolated to the right hip. Past Med/Surg History Medical History Acute renal failure hx 10/2018 Bilateral hydronephrosis BPH (benign prostatic hyperplasia) Bradycardia Ulrich catheter in place MVP (mitral valve prolapse) Moderate prolapse of the posterior mitral valve leaflet per 04/2019 ECHO Parkinson disease with cognitive impairment Tremor Surgical History History of prostate surgery History of testicular surgery 06/2019. General anesthesia. LMA #4 igel Family History Father No pertinent family history Mother No pertinent family history Other Brain tumor Social History Smoking Status: Never smoker Second Hand Exposure: No; Hx Alcohol Use: No Hx Substance Use: No Preferred Language: Swedish Communication Ability: Impaired Oncology Patient Navigator Required: No Beliefs That Will Affect Care: None marital status: Single Current Living Situation: Personal Care Facility Current Living Situation Comment: [facility] current occupational status: retired How many Children do You have: 0 Feels Safe at Home: Yes Assistive Devices: Walker Allergies Allergies Allergy/AdvReac Type Severity Reaction Status Date / Time No Known Allergies Allergy Verified 09/07/20 19:22 Home Meds Home Medications Medication Instructions Recorded Confirmed diphenhydramine HCl [Banophen] 25 mg PO Q6H PRN 12/04/18 09/07/20 nystatin 1 applic TOPICAL BID PRN 12/04/18 09/07/20 carbamide peroxide [Ear Wax Drops] 5 drp OTIC (EAR) Q12H PRN 02/13/19 09/07/20 docusate sodium 100 mg PO DAILY PRN 02/13/19 09/07/20 acetaminophen 325 mg capsule 650 mg PO Q4H PRN cap MDD 3 GMS 06/02/19 09/07/20 APAP/24 HOURS carbidopa 25 mg-levodopa 100 mg 1 tab PO QID 06/15/19 09/07/20 tablet amlodipine 2.5 mg tablet 2.5 mg PO DAILY 10/14/19 09/07/20 Previous Rx's Medication Instructions Recorded amantadine HCl 100 mg capsule 100 mg PO BID #60 cap 10/14/19 Results & Data (ED) Vital Signs Vital Signs - 24 hr 09/07/20 18:39 09/07/20 19:29 Temperature 36.9 C Temperature Source Oral Pulse Rate 78 Pulse Rate [Apical] 66 Pulse Rhythm [Apical] Regular Respiratory Rate 18 15 Respiratory Effort / Characteristics Non-Labored Spontaneous Respiratory Depth Normal Respiratory Pattern Regular Blood Pressure 136/88 Blood Pressure [Left Arm] 136/88 Blood Pressure Mean 104 Blood Pressure Mean [Left Arm] 104 Blood Pressure Position [Left Arm] Sitting Pulse Oximetry 94 94 Oxygen Delivery Method Room Air Room Air Sepsis Recent Fever Within 48 Hours No Sepsis New/Unexplained Change in Mental Status N/A Sepsis Action Taken by Nursing No Action Required Home Medications Current Medication List: was personally reviewed by me Laboratory Data Attestation: I reviewed the patient's lab results. Result diagrams: 09/07/20 19:24 09/07/20 19:24 Lab Results 09/07/20 09/07/20 09/07/20 Range/Units 19:24 19:24 19:24 WBC 5.39 (4.8-10.8) K/uL RBC 4.86 (4.7-6.1) M/uL Hgb 14.8 (14.0-18.0) g/dL Hct 44.5 (42-52) % MCV 91.6 (80-100) fL MCH 30.5 (25-34) pg MCHC 33.3 (32-36) g/dL RDW Std Deviation 49.6 H (36.4-46.3) fL RDW Coeff of Kayley 14.7 H (11.5-14.5) % Plt Count 153 (130-400) K/uL MPV 10.2 (7.4-10.4) fL Immature Gran % (Auto) 0.2 % Neut % (Auto) 80.9 % Lymph % (Auto) 11.3 % Bullock % (Auto) 6.3 % Eos % (Auto) 1.1 % Baso % (Auto) 0.2 % Neut # (Auto) 4.36 (1.4-6.5) K/uL Lymph # (Auto) 0.61 L (1.2-3.4) K/uL Bullock # (Auto) 0.34 (0.11-0.59) K/uL Eos # (Auto) 0.06 (0-0.5) K/uL Baso # (Auto) 0.01 (0-0.2) K/uL Immature Gran # (Auto) 0.01 (0.00-0.02) K/uL PT 10.9 (9.0-12.0) Seconds INR 1.0 (0.9-1.1) APTT 29.1 (21.0-31.0) Seconds PTT Ratio 1.0 Sodium (136-145) mmol/L Potassium (3.5-5.1) mmol/L Chloride (98-107) mmol/L Carbon Dioxide (21-32) mmol/L Anion Gap (3-11) BUN (7-18) mg/dl Creatinine (0.6-1.4) mg/dl Est Cr Clr Drug Dosing ml/min Est GFR ( Amer) Est GFR (Non-Af Amer) BUN/Creatinine Ratio (10-20) Glucose (70-99) mg/dl Calcium (8.5-10.1) mg/dl Blood Type B Positive Antibody Screen NEGATIVE 09/07/20 Range/Units 19:24 WBC (4.8-10.8) K/uL RBC (4.7-6.1) M/uL Hgb (14.0-18.0) g/dL Hct (42-52) % MCV (80-100) fL MCH (25-34) pg MCHC (32-36) g/dL RDW Std Deviation (36.4-46.3) fL RDW Coeff of Kayley (11.5-14.5) % Plt Count (130-400) K/uL MPV (7.4-10.4) fL Immature Gran % (Auto) % Neut % (Auto) % Lymph % (Auto) % Bullock % (Auto) % Eos % (Auto) % Baso % (Auto) % Neut # (Auto) (1.4-6.5) K/uL Lymph # (Auto) (1.2-3.4) K/uL Bullock # (Auto) (0.11-0.59) K/uL Eos # (Auto) (0-0.5) K/uL Baso # (Auto) (0-0.2) K/uL Immature Gran # (Auto) (0.00-0.02) K/uL PT (9.0-12.0) Seconds INR (0.9-1.1) APTT (21.0-31.0) Seconds PTT Ratio Sodium 142 (136-145) mmol/L Potassium 4.4 (3.5-5.1) mmol/L Chloride 111 H (98-107) mmol/L Carbon Dioxide 27 (21-32) mmol/L Anion Gap 4.0 (3-11) BUN 35 H (7-18) mg/dl Creatinine 1.15 (0.6-1.4) mg/dl Est Cr Clr Drug Dosing 52.2 ml/min Est GFR ( Amer) 71.2 Est GFR (Non-Af Amer) 61.5 BUN/Creatinine Ratio 30.6 H (10-20) Glucose 134 H (70-99) mg/dl Calcium 8.6 (8.5-10.1) mg/dl Blood Type Antibody Screen Imaging Data Radiologist's Impression: XR hip RT 2V w pelvis HISTORY: 74 years-old Male fall, hip pain acute right-sided hip pain status p ost fall COMPARISON: CT abdomen and pelvis 06/04/2020 TECHNIQUE: AP view of the pelvis with 2 views the right hip FINDINGS: Demineralized appearance of the bones. Mild osteoarthritis of the hips. There is an acute mildly impacted and superiorly displaced subcapital fracture of the right femur. No dislocation. Urinary bladder calculi redemonstrated. IMPRESSION: Acute mildly impacted and displaced subcapital fracture of the right femur. XR chest 1V portable HISTORY: 74 years-old Male fall, hip fx acute chest trauma status post fall COMPARISON: Chest radiograph 06/20/2020 TECHNIQUE: Portable AP view of the chest FINDINGS: Cardiac silhouette is mildly enlarged, unchanged. Large hiatal hernia. No pneumothorax, pleural effusion, airspace consolidation or overt pulmonary edema. Degenerative changes of the shoulders and spine. IMPRESSION: Chronic findings as above without acute process. Discharge Plan Visit Data Chief Complaint: Fall Stated Complaint: FALL, HIP PAIN ED Provider: Claudio Valerio Discharge Problem: Fracture of right hip, Fall Patient Disposition: Admitted As Inpatient Condition: Good Forms Stand Alone Forms: [facility] Prescriptions Prescriptions: No Action amlodipine 2.5 mg tablet 2.5 mg PO DAILY RF: 0 amantadine HCl 100 mg capsule 100 mg PO BID Qty: 60 RF: 5 carbidopa-levodopa 25-100 mg tablet 1 tab PO QID RF: 0 acetaminophen 325 mg capsule 650 mg PO Q4H MDD 3 GMS APAP/24 HOURS PRN (Reason: Fever Or Pain) RF: 0 nystatin 100,000 unit/gram Cream 1 applic TOPICAL BID PRN (Reason: Rash) RF: 0 diphenhydramine HCl [Banophen] 25 mg Tablet 25 mg PO Q6H PRN (Reason: Allergy Symptoms) RF: 0 docusate sodium 100 mg capsule 100 mg PO DAILY PRN (Reason: Constipation) RF: 0 carbamide peroxide [Ear Wax Drops] 6.5 % Drops 5 drp OTIC (EAR) Q12H PRN (Reason: Ear Wax Removal) RF: 0 Referrals Referrals: [facility], [facility] [Primary Care Provider] - Discharge Problem: Fracture of right hip Qualifiers: Encounter type: initial encounter Fracture type: closed Qualified Code(s): S72.001A - Fracture of unspecified part of neck of right femur, initial encou nter for closed fracture Fall Qualifiers: Encounter type: initial encounter Qualified Code(s): W19.XXXA - Unspecified fall, initial encounter
[2020-09-07 19:34] LABS: Basophils # (auto) 0.01 K/uL (0-0.2); Basophils % (auto) 0.2 %; Eosinophils # (auto) 0.06 K/uL (0-0.5); Eosinophils % (auto) 1.1 %; Hematocrit (blood only) 44.5 % (42-52); Hemoglobin 14.8 g/dL (14.0-18.0); Immature Granulocytes # (auto) 0.01 K/uL (0.00-0.02); Immature Granulocytes % (auto) 0.2 %; Lymphocytes # (auto) 0.61 K/uL (1.2-3.4); Lymphocytes % (auto) 11.3 %; Mean Corpuscular Hemoglobin 30.5 pg (25-34); Mean Corpuscular Hgb Conc 33.3 g/dL (32-36); Mean Corpuscular Volume 91.6 fL (80-100); Mean Platelet Volume 10.2 fL (7.4-10.4); Monocytes # (auto) 0.34 K/uL (0.11-0.59); Monocytes % (auto) 6.3 %; Neutrophils # (auto) 4.36 K/uL (1.4-6.5); Neutrophils % (auto) 80.9 %; Platelet Count 153 K/uL (130-400); RDW Coefficient of Variation 14.7 % (11.5-14.5); RDW Standard Deviation 49.6 fL (36.4-46.3); Red Blood Count 4.86 M/uL (4.7-6.1); White Blood Count 5.39 K/uL (4.8-10.8)
[2020-09-07 19:46] LABS: Partial Thromboplastin Time 29.1 Seconds (21.0-31.0); Prothrombin Time 10.9 Seconds (9.0-12.0)
[2020-09-07 19:57] LABS: BUN Creatinine Ratio 30.6 (10-20); Calcium 8.6 mg/dl (8.5-10.1); Creatinine Clr Calc Pharmacy 52.2 ml/min; Est GFR (African American) 71.2; Est GFR (Non-African American) 61.5; Potassium 4.4 mmol/L (3.5-5.1)
--- NOTE | 2020-09-07 20:32 | XRay Report ---
XR hip RT 2V w pelvis HISTORY: 74 years-old Male fall, hip pain acute right-sided hip pain status post fall COMPARISON: CT abdomen and pelvis 06/04/2020 TECHNIQUE: AP view of the pelvis with 2 views the right hip FINDINGS: Demineralized appearance of the bones. Mild osteoarthritis of the hips. There is an acute mildly impa cted and superiorly displaced subcapital fracture of the right femur. No dislocation. Urinary bladder calculi redemonstrated. IMPRESSION: Acute mildly impacted and displaced subcapital fracture of the right femur. ACT 112: Negative or not required by law. The above report was generated using voice recognition software. It may contain grammatical, syntax o r spelling errors. Electronically signed by: mEanuel Browne M.D. 09/07/2020 8:31 PM
--- NOTE | 2020-09-07 20:33 | XRay Report ---
XR chest 1V portable HISTORY: 74 years-old Male fall, hip fx acute chest trauma status post fall COMPARISON: Chest radiograph 06/20/2020 TECHNIQUE: Portable AP view of the chest FINDINGS: Cardiac silhouette is mildly enlarged, unchanged. Large hiatal hernia. No pneumothorax, pleural effus ion, airspace consolidation or overt pulmonary edema. Degenerative changes of the shoulders and spine . IMPRESSION: Chronic findings as above without acute process. ACT 112: Negative or not required by law. The above report was generated using voice recognition software. It may contain grammatical, syntax o r spelling errors. Electronically signed by: Emanuel Browne M.D. 09/07/2020 8:32 PM
[2020-09-07 23:13] LABS: Appearance Urine Cloudy (Clear); Bacteria Urine Automated 3+ (Negative); Bilirubin Urine Negative (Negative); Blood Urine Trace (Negative); Color Urine Yellow; Epithelial Cell Urine Auto 20-30 /lpf (0-5); Glucose Urine UA Negative (Negative); Ketones Urine Negative (Negative); Leukocyte Esterase Urine 3+ (Negative); Nitrite Urine Negative (Negative); Protein Urine Trace (Negative); Specific Gravity Urine 1.019 (1.000-1.030); Urobilinogen Urine Negative (Negative); WBC Urine Automated >30 /hpf (0-5); pH Urine 6.5 (4.5-7.5)
--- NOTE | 2020-09-08 00:31 | History and Physical Report ---
DATE OF ADMISSION: 09/07/2020 CHIEF COMPLAINT: Status post fall, right hip fracture. HISTORY OF PRESENT ILLNESS: A 74-year-old male with past medical history significant for BPH, history of urinary retention, was on Ulrich, currently Ulrich removed, history of Parkinson disease, history of sensorineural hearing loss bilaterally, mild cognitive impairment, history of elevated bilirubin, history of liver cyst, who was diagnosed with COVID on 05/25/2020 and finally discharged and admitted back on 06/21/2020 with Pseudomonas UTI, metabolic encephalopathy and ANGE. During his hospitalization, his imaging studies showed right inguinal hernia for which he followed with surgery and currently under observation, and also has liver cyst and supposed to get liver MRI, follows with GI. He is at the [facility]. Today, presents with fall. The patient says he is ambulating without any help. He had a misstep and fell today on the right side and has had right hip pain. No loss of conscious, no injury to his head and could not bear any weight and was brought here and found to have right hip fracture. Currently resting comfortably and hemodynamically stable. The patient is somewhat hard to hear, but alert and oriented, able to answer all the questions. Denies any chest pain. Denies any shortness of breath, no cough, no fevers, no headache, no blurred vision, no earache, no runny nose, no sore throat, no loss of sense of smell or taste. Appetite is okay, says he is supposed to eat only soft diet and swallowing okay. Denies any nausea. He says since his Ulrich was removed, he is mostly incontinent of his urine. Stools are okay, sometimes he has to use stool softeners. No swelling in the legs. ALLERGIES: No known drug allergies. PAST MEDICAL HISTORY: As mentioned above. PAST SURGICAL HISTORY: Dental procedures, status post appendectomy in 09/2019. FAMILY HISTORY: Significant for father had brain cancer. Mother had hypertension. SOCIAL HISTORY: Currently living at [facility]. No history of smoking, alcohol or drug use. MEDICATIONS: The patient is currently on Tylenol 650 mg p.o. q. 4 hours p.r.n., amantadine 100 mg p.o. b.i.d., amlodipine 5 mg p.o. daily, carbidopa/levodopa 25/100 mg one tablet p.o. q.i.d., diphenhydramine 25 mg p.o. q. 6 hours p.r.n., Colace 100 mg p.o. daily p.r.n., nystatin 1 topical b.i.d. p.r.n. REVIEW OF SYMPTOMS: As per HPI. Rest of the review of systems negative. PHYSICAL EXAMINATION: GENERAL: The patient is of moderate build, not in acute distress. VITAL SIGNS: Temperature 36.9, pulse 67, respiratory rate 19, blood pressure 157/92, oxygen 94% room air. HEENT: Pupils equal, round, reactive to light. Oral mucosa moist. NECK: No neck masses. No JVD. CARDIOVASCULAR: S1, S2, regular rate and rhythm, no murmur, no gallop. RESPIRATORY SYSTEM: Normal AP diameter. No accessory muscle use. No wheezing, no crackles. ABDOMEN: Soft, bowel sounds present, nontender. No distention. CENTRAL NERVOUS SYSTEM: Cranial nerves II-XII grossly intact, nonfocal. EXTREMITIES: Right lower extremity is slightly externally rotated. No edema, no erythema seen. LABORATORY DATA: WBC 5.3, hemoglobin 14.8, hematocrit 44.5, platelets 153. PT 10.9, INR 1, APTT 29.1. Sodium 142, potassium 4.4, chloride 111, CO2 27, BUN 35, creatinine 1.1, serum glucose 134, calcium 8.6. IMAGING: Hip and pelvic x-ray, acute mildly impacted and displaced subcapital fracture of the right femur. Chest x-ray, chronic findings without acute process. ASSESSMENT AND PLAN: This is a 74-year-old male who presents with mechanical fall and right hip fracture. 1. Mechanical fall, right hip fracture. The patient has some mild dementia. He says he is ambulating without any support. Labs are okay. Chest x-ray is okay. If EKG is okay the patient should be acceptable risk to proceed with surgery. Will keep him n.p.o., IV fluids, IV morphine p.r.n., IV antiemetics p.r.n. Consult orthopedics, monitor in the medical floor. PT and OT when stable. Social service to help with discharge planning. 3. History of Parkinson's. Continue his amantadine and carbidopa/levodopa. 4. History of hypertension. Continue amlodipine. We will monitor his blood pressure. 5. History of urinary retention, BPH, follows with urology. Currently no longer on Ulrich. He says he is constantly incontinent. We will monitor. If any concern, will consult urology. 6. History of COVID diagnosed on 06/04/2020. Currently, seems to be stable. 7. History of inguinal hernia, followed with Surgery, currently under observation. 8. History of dementia, monitor for any delirium. 9. Deep venous thrombosis prophylaxis as per orthopedics. 10. CODE STATUS: DNR/DNI as per discussion with the patient and power of tax associate attorney. DISPOSITION: Admit to medical floor. Await ortho input. Social service to help with discharge planning. ALOK
[2020-09-08] MEDS ORDERED: POLYETHYLENE (MIRALAX) 17 GM PACK PO PRN (00:43)
[2020-09-08] MEDS ORDERED: NYSTATIN CR 15 GM TUBE EXT PRN (00:43)
[2020-09-08] MEDS ORDERED: ONDANSETRON INJ 2 MG/ML 2 ML VIAL IV PRN (00:43)
[2020-09-08] MEDS ORDERED: DOCUSATE SODIUM 100 MG CAP PO PRN (00:43)
[2020-09-08] MEDS ORDERED: ACETAMINOPHEN 325 MG TAB PO PRN (00:43)
[2020-09-08] MEDS ORDERED: MoRPHine SULFATE 2 MG/ML CARP IV PRN (00:43)
[2020-09-08] MEDS ORDERED: diphenhydrAMINE Capsule 25 MG CAP PO PRN (00:54)
[2020-09-08] MEDS: D5W AND NSS 1,000 ML IV SCH ×2 (01:10→11:36)
[2020-09-08 06:54] LABS: Basophils # (auto) 0.01 K/uL (0-0.2); Basophils % (auto) 0.1 %; Eosinophils % (auto) 1.4 %; Hematocrit (blood only) 43.3 % (42-52); Immature Granulocytes # (auto) 0.02 K/uL (0.00-0.02); Immature Granulocytes % (auto) 0.3 %; Lymphocytes # (auto) 0.67 K/uL (1.2-3.4); Lymphocytes % (auto) 9.4 %; Mean Corpuscular Hemoglobin 29.4 pg (25-34); Mean Corpuscular Hgb Conc 32.3 g/dL (32-36); Mean Platelet Volume 10.6 fL (7.4-10.4); Monocytes # (auto) 0.44 K/uL (0.11-0.59); Monocytes % (auto) 6.2 %; Neutrophils # (auto) 5.91 K/uL (1.4-6.5); Neutrophils % (auto) 82.6 %; Platelet Count 132 K/uL (130-400); RDW Coefficient of Variation 14.4 % (11.5-14.5); RDW Standard Deviation 48.4 fL (36.4-46.3); Red Blood Count 4.76 M/uL (4.7-6.1); White Blood Count 7.15 K/uL (4.8-10.8)
[2020-09-08 07:37] LABS: BUN Creatinine Ratio 36.5 (10-20); Calcium 8.7 mg/dl (8.5-10.1); Creatinine Clr Calc Pharmacy 97.2 ml/min; Est GFR (African American) 96.7; Est GFR (Non-African American) 83.4; Magnesium 2.2 mg/dl (1.8-2.4); Potassium 3.8 mmol/L (3.5-5.1)
[2020-09-08] MEDS: amLODIPine BESYLATE 5 MG TAB PO SCH (08:41)
[2020-09-08] MEDS: AMANTADINE HCL 100 MG CAPSULE PO SCH ×2 (08:42→21:37)
[2020-09-08] MEDS: CARBIDOPA/LEVODOPA 25/100MG TAB PO SCH ×4 (08:42→21:37)
--- NOTE | 2020-09-08 10:51 | Orthopedic Consultation ---
Date of Consultation September 08, 2020 Assessment & Plan (1) Fracture of right hip: Patient with displaced right subcapital hip fracture. He will most likely require a bipolar hemiarthroplasty. Dr. John aware of case and will review films. I have discussed the case with Dr. Valdivia who states that the patient is cleared for the OR with moderate risk. Plan for OR today. History of Present Illness Reason for Consultation: Right displaced subcapital hip fracture Attending Physician: Drake Valdivia MD History of Present Illness Patient is a 74-year-old white male who was admitted by [facility] service last night for a right subcapital displaced hip fracture. The patient resides at [facility]. He states that he got out of his bed to ambulate. He states that he had a misstep and lost his balance and fell onto the floor. He did not lose consciousness. He denies shortness of breath or chest pain or lightheadedness prior to or after the fall. He states that he had pain in his right hip and groin and was unable to ambulate. He was brought to the emergency room and was seen by the staff. X-rays were taken and was found that he had a displaced subcapital hip fracture of the right hip. We have been asked to take care of his hip fracture. Patient had a history of being Covid positive in early May 2020. Last admission was early June for Pseudomonas UTI, ANGE, encephalopathy. Allergies Allergy/AdvReac Type Severity Reaction Status Date / Time No Known Allergies Allergy Verified 09/07/20 19:22 Home Medications Medication Instructions Recorded Confirmed Type diphenhydramine HCl [Banophen] 25 mg PO Q6H PRN 12/04/18 09/07/20 History nystatin 1 applic TOPICAL BID PRN 12/04/18 09/07/20 History carbamide peroxide [Ear Wax Drops] 5 drp OTIC (EAR) Q12H PRN 02/13/19 09/07/20 History docusate sodium 100 mg PO DAILY PRN 02/13/19 09/07/20 History acetaminophen 325 mg capsule 650 mg PO Q4H PRN cap MDD 3 GMS 06/02/19 09/07/20 History APAP/24 HOURS carbidopa 25 mg-levodopa 100 mg 1 tab PO QID 06/15/19 09/07/20 History tablet amantadine HCl 100 mg capsule 100 mg PO BID #60 cap 10/14/19 09/07/20 Rx amlodipine 2.5 mg tablet 2.5 mg PO DAILY 10/14/19 09/07/20 History Patient History Medical History Acute renal failure hx 10/2018 Bilateral hydronephrosis BPH (benign prostatic hyperplasia) Bradycardia Ulrich catheter in place MVP (mitral valve prolapse) Moderate prolapse of the posterior mitral valve leaflet per 04/2019 ECHO Parkinson disease with cognitive impairment Tremor Surgical History History of prostate surgery History of testicular surgery 06/2019. General anesthesia. LMA #4 igel Family History Father No pertinent family history Mother No pertinent family history Other Brain tumor Social History Smoking Status: Never smoker Second Hand Exposure: No; Do You Dip or Chew Tobacco: No; Hx Alcohol Use: No Hx Substance Use: No Preferred Language: Mauritian Communication Ability: Effective Green Building Materials Designer Required: No Beliefs That Will Affect Care: None marital status: Single Current Living Situation: Personal Care Facility Current Living Situation Comment: [facility] current occupational status: retired How many Children do You have: 0 Feels Safe at Home: Yes Assistive Devices: Glasses and Walker Review of Systems Review of Systems: All systems reviewed & are unremarkable except as noted in HPI & below Physical Exam Physical Exam: Patient is awake and alert. He does answer questions appropriately. He states that his hip does not bother him too much unless he tries to move it. He appears comfortable and is pleasant and cooperative. No acute distress. Examination of his right lower extremity shows the right lower extremity to be slightly shortened and externally rotated compared to the left. He has good range of motion of his right ankle and toes. And sensation is intact. He has some mild discomfort on palpation of his right knee but there is no noted abrasions, bruises, swelling. No attempts were done with range of motion of the knee secondary to right hip fracture. He has minimal to no pain on palpation of his right lateral hip. Minimal internal and external rotation causes the patient pain in the right hip and groin. No further attempts at range of motion are done. He denies any pain in the left lower extremity and has range of motion of the hip knee and ankle that is within normal limits. Shoulders elbows and wrists are nontender on palpation and range of motion is within normal limits. Distal pulses are equal bilaterally of the upper and lower extremities. There is no gross motor or sensory loss seen at this time. Results & Data ([facility]) Vital Signs (Past 12 Hours) Vital Signs Temp Pulse Pulse Pulse Resp BP BP 09/08/20 07:55 36.7 C 72 18 167/87 H 09/08/20 03:16 177/81 H 09/08/20 00:50 37 C 72 18 175/93 H 09/08/20 00:10 78 15 143/81 H 09/07/20 23:30 79 19 133/86 09/07/20 23:00 74 18 121/69 Pulse Ox 09/08/20 07:55 95 09/08/20 03:16 09/08/20 00:50 94 09/08/20 00:10 95 09/07/20 23:30 94 09/07/20 23:00 94 (1) Fracture of right hip Encounter type: initial encounter Fracture type: closed Qualified Code(s): S72.001A - Fracture of unspecified part of neck of right femur, initial encounter for closed fracture
--- NOTE | 2020-09-08 11:49 | XRay Report ---
XR femur RT 2V routine CLINICAL HISTORY: Fracture. Preoperative study. COMPARISON: 09/07/2020 DISCUSSION: There is displaced subcapital hip fracture. There is no dislocation. No additional femora l fractures are visualized. There is a laminated calcification within the pelvis suspicious for a ira dder calculus. IMPRESSION: 1. Subcapital right hip fracture 2. No additional femoral fractures identified 3. Bladder calculi ACT 112: Negative or not required by law. Electronically signed by: Srinivasan Bertrand M.D. 09/08/2020 11:47 AM
[2020-09-08] MEDS ORDERED: MIDAZOLAM HCL 1 MG/ML 2ML VIAL ONE (12:15)
[2020-09-08] MEDS ORDERED: fentaNYL citrate 100 MCG/2 ML VIAL ONE ×2 (12:16→13:44)
[2020-09-08] MEDS ORDERED: ceFAZolin 2,000 MG/15 ML IV PUSH IV ONE (12:39)
--- NOTE | 2020-09-08 12:40 | History & Physical Bridge Note ---
Date of Service September 08, 2020 History & Physical Bridge Note I have examined the patient, reviewed the History & Physical and in the interval since the performance of the History & Physical I have noted the following changes of clinical significance: no changes noted
--- NOTE | 2020-09-08 12:48 | Anesthesiology Consultation ---
Date of Service September 08, 2020 Assessment & Plan Chart Review Chart Review: Acceptable Risk for Surgery and Patient NOT seen in Pre Admission Testing Consults Requested none ASA ASA4 Proposed Anesthesia Anesthesia Type: General Risk / Benefits Reviewed With: PT / POA / Parent / Guardian, Accepts Plan and Informed Consent Obtained Additional Comments: covid test negative History Surgery Operation Date: 09/08/20 10:30 Proposed Procedures p Right Bipolar Hip Fracture - Geovanny John DO Height/Weight Height: 5 ft 8 in Weight: 65.317 kg Allergies Allergy/AdvReac Type Severity Reaction Status Date / Time No Known Allergies Allergy Verified 09/07/20 19:22 Medications Home Medications Medication Instructions Recorded Confirmed Last Taken diphenhydramine HCl [Banophen] 25 mg PO Q6H PRN 12/04/18 09/07/20 Unknown nystatin 1 applic TOPICAL BID PRN 12/04/18 09/07/20 Unknown carbamide peroxide [Ear Wax Drops] 5 drp OTIC (EAR) Q12H PRN 02/13/19 09/07/20 Unknown docusate sodium 100 mg PO DAILY PRN 02/13/19 09/07/20 Unknown acetaminophen 325 mg capsule 650 mg PO Q4H PRN cap MDD 3 GMS 06/02/19 09/07/20 Unknown APAP/24 HOURS carbidopa 25 mg-levodopa 100 mg 1 tab PO QID 06/15/19 09/07/20 07/06/19 tablet amantadine HCl 100 mg capsule 100 mg PO BID #60 cap 10/14/19 09/07/20 Unknown amlodipine 2.5 mg tablet 2.5 mg PO DAILY 10/14/19 09/07/20 Unknown Active Medications Generic Name Dose Route Start Last Admin Trade Name Ikeq PRN Reason Stop Dose Admin Amantadine HCl 100 mg 09/08/20 09:00 09/08/20 08:42 Amantadine Hcl 100 Mg Capsule PO 10/08/20 08:59 100 mg BID MARLON Administration Amlodipine Besylate 2.5 mg 09/08/20 09:00 09/08/20 08:41 Amlodipine Besylate 5 Mg Tab PO 10/08/20 08:59 2.5 mg DAILY MARLON Administration Carbidopa/Levodopa 1 tab 09/08/20 09:00 09/08/20 12:20 Carbidopa/Levodopa 25/100mg Tab PO 10/08/20 08:59 Not Given QID MARLON Dextrose/Sodium Chloride 1,000 mls @ 100 mls/hr 09/08/20 00:43 09/08/20 11:36 D5w And Nss IV 10/08/20 00:42 100 mls/hr .Q10H MARLON Administration Morphine Sulfate 2 mg 09/08/20 00:43 09/08/20 01:10 Morphine Sulfate 2 Mg/Ml Carp IV 09/22/20 00:42 2 mg Q3H PRN Administration Pain NPO Date Last Intake of Fluids: 09/07/20 Time Last Intake of Fluids: 21:00 Last Intake of Fluids Comment: nothing since supper per pt and RN Date Last Intake of Solids: 09/07/20 Time Last Intake of Solids: 18:00 Last Intake of Solids Comment: nothing since supper per pt and RN Past Medical History Medical History Acute renal failure hx 10/2018 Bilateral hydronephrosis BPH (benign prostatic hyperplasia) Bradycardia Ulrich catheter in place MVP (mitral valve prolapse) Moderate prolapse of the posterior mitral valve leaflet per 04/2019 ECHO Parkinson disease with cognitive impairment Tremor Exercise / Class Metabolic Activity IV < 2 Limit ADL/Bedbound Past Family History Family History Father No pertinent family history Mother No pertinent family history Other Brain tumor Past Surgical History Surgical History History of prostate surgery History of testicular surgery 06/2019. General anesthesia. LMA #4 igel Past Anesthesia History No Hx of Anesthesia Complications and No Family Hx of Anesthesia Complications History of PONV No Hx of PONV and No Hx of Motion Sickness Social History Smoking Status: Never smoker Do You Dip or Chew Tobacco: No Hx Alcohol Use: No Hx Substance Use: No substance use type: does not use Physical Exam Vital Signs Last Vital Signs Temp 37 C 09/08/20 12:14 Pulse 72 09/08/20 12:14 Resp 18 09/08/20 12:14 BP 162/99 H 09/08/20 12:14 Pulse Ox 96 09/08/20 12:14 Constitutional not obese ENMT Mouth: + edentulous; no dentition abnormality Thyromental Distance: > or= 3.5 Finger Breadths Mallampati Class: II Neck normal visual inspection and trachea midline; neck extension not limited Respiratory normal respiratory effort Auscultation: lungs clear to auscultation bilaterally Cardiovascular Rate/Rhythm: regular rate and regular rhythm Heart Sounds: no murmur Vessels: no carotid bruit Musculoskeletal Spine: normal cervical ROM Extremities: extremities normal to inspection Neurologic + does not move all extremities (tremors w/cogwheel motion) Speech / Cognition: + abnormal cognition Motor/Sensory: no sensory deficit Psychiatric Orientation: alert; + not oriented x 3 Testing Laboratory Results 09/08/20 06:28 09/08/20 06:28 PT 10.9 Seconds (9.0-12.0) 09/07/20 19:24 INR 1.0 (0.9-1.1) 09/07/20 19:24 APTT 29.1 Seconds (21.0-31.0) 09/07/20 19:24 Urine Color Yellow 09/07/20 22:55 Urine Appearance Cloudy (Clear) A 09/07/20 22:55 Urine pH 6.5 (4.5-7.5) 09/07/20 22:55 Ur Specific [place] 1.019 (1.000-1.030) 09/07/20 22:55 Urine Protein Trace (Negative) H 09/07/20 22:55 Urine Glucose (UA) Negative (Negative) 09/07/20 22:55 Urine Ketones Negative (Negative) 09/07/20 22:55 Urine Nitrite Negative (Negative) 09/07/20 22:55 Ur Leukocyte Esterase 3+ (Negative) H 09/07/20 22:55 Urine WBC (Auto) >30 /hpf (0-5) H 09/07/20 22:55 Urine RBC (Auto) 5-10 /hpf (0-4) H 09/07/20 22:55 U Hyaline Cast (Auto) 1-5 /lpf (0-5) 09/07/20 22:55 U Epithel Cells (Auto) 20-30 /lpf (0-5) H 09/07/20 22:55 Urine Bacteria (Auto) 3+ (Negative) H 09/07/20 22:55 Blood Type B Positive 09/07/20 19:24 Antibody Screen NEGATIVE 09/07/20 19:24 Electrocardiogram Date: 09/08/20 Findings: + NSR @ (at 71;LAD;Low voltage QRS;NS T wave changes) Chest X-Ray Date: 09/07/20 Findings: + NAD and + cardiomegaly Echocardiogram Date: 05/10/19 EF: 60% LV Function: normal RWMA: + none Other Findings: + LVH (mild) Valvular Disease: + AI (mild), + MR (mild; moderate prolapse of posterior MV leaflet) and + pertinent finding (mild TR)
[2020-09-08] MEDS ORDERED: BACITRACIN INJ 50,000 UNIT VIAL ONE (12:54)
[2020-09-08] MEDS ORDERED: ORTHO JOINT ANESTHETIC ONE (12:54)
[2020-09-08] MEDS ORDERED: ATROPINE SULFATE 0.1 MG/ML 10ML SYR IV PRN (12:55)
[2020-09-08] MEDS ORDERED: SODIUM CHLORIDE 0.9% 250 ML IV PRN (12:55)
[2020-09-08] MEDS ORDERED: ePHEDrine sulfate 50 MG/ML AMP IV PRN (12:55)
[2020-09-08] MEDS ORDERED: ORTHO JOINT ANESTHETIC SC ONE (12:56)
[2020-09-08] MEDS ORDERED: ceFAZolin 2000MG 2,000 MG/15 ML SYR IV SCH (13:00)
[2020-09-08] MEDS ORDERED: ROPIVACAINE 0.5% HCL/PF 150 MG, BUPIVACAINE 0.75% MPF 20 ML, EPINEPHrine 30MG/30ML (OR ... INFIL ONE (13:30)
--- NOTE | 2020-09-08 13:33 | Hospitalist Progress Note ---
Date of Service September 08, 2020 Assessment & Plan (1) Fracture of right hip: Patient is a 74 yr male who presents for evaluation of right hip pain after sustaining a mechanical fal. Mechanical fall Right hip fracture Patient denies head trauma Hi X ray:Acute mildly impacted and displaced subcapital fracture of the right femur. Planned for bipolar hemiarthroplasty of right hip today by Dr. John Pain control Appreciate Orthopedics help PT/OT Bowel regimen to prevent constipation Monitor for Pot op anemia May need rehab placement Parkinson's Disease Continue amantadine, carbidopa/levodopa Hypertension. BP elevated likely situational due to pain Continue amlodipine Monitor BP H/O Urinary retention BPH Follows with Urology as outpatient H/O COVID Diagnosed on 06/04/2020 Stable COVID Screen on 09/07/20:Negative H/O Inguinal hernia Followed with Surgery Dementia Reorient frequently to minimize delirium Monitor DVT Px: SCDs for now Re: Surgery planned CODE STATUS: DNR/DNI Disposition PT/OT prior to discharge May need Rehab placement Admission and Anticipated Discharge Date Admission Date: September 07, 2020 Subjective Patient is seen and examined at bedside States having right hip pain with movement Denies chest pain, dyspnea, dizziness, nausea, abdominal pain Planned for hip surgery today Offers no other complaints Review of Systems Review of Systems: All systems reviewed & are unremarkable except as noted in HPI & below Physical Exam Physical Exam: Physical Exam: Vitals signs as noted above General Appearance:Thin, frail, no apparent distress Head: normocephalic, Atraumatic Eyes: normal inspection, EOMI Neck: supple, Trachea midline Respiratory/Chest: Normal breath sounds, CTA Cardiovascular: S1, S2, No murmur Abdomen/GI:Soft, Non tender, Bowel sounds present Extremities/Musculoskelatal:normal inspection, Right LE Externally rotated, No edema Neurologic/Psych:AAOX3, grossly no focal neurological deficits, +Resting tremor Skin: normal color, warm Results & Data Results & Data ([facility]) Vital Signs (Past 12 Hours) Vital Signs Temp Pulse Pulse Resp BP Pulse Ox 09/08/20 12:14 37 C 72 67 18 162/99 H 96 09/08/20 07:55 36.7 C 72 18 167/87 H 95 09/08/20 03:16 177/81 H Laboratory Results Short CBC 09/07/20 09/08/20 Range/Units 19:24 06:28 WBC 5.39 7.15 (4.8-10.8) K/uL Hgb 14.8 14.0 (14.0-18.0) g/dL Hct 44.5 43.3 (42-52) % Plt Count 153 132 (130-400) K/uL BMP 09/07/20 09/08/20 19:24 06:28 Sodium 142 141 Potassium 4.4 3.8 Chloride 111 H 110 H Carbon Dioxide 27 26 BUN 35 H 32 H Creatinine 1.15 0.88 Glucose 134 H 97 Calcium 8.6 8.7 Urine 09/07/20 Range/Units 22:55 Urine Color Yellow Urine Appearance Cloudy A (Clear) Urine pH 6.5 (4.5-7.5) Ur Specific [place] 1.019 (1.000-1.030) Urine Protein Trace H (Negative) Urine Glucose (UA) Negative (Negative) (1) Fracture of right hip Encounter type: initial encounter Fracture type: closed Qualified Code(s): S72.001A - Fracture of unspecified part of neck of right femur, initial encount er for closed fracture
[2020-09-08] MEDS ORDERED: CISATRACURIUM BESYLATE IV SOLN 2 MG/ML 10 ML VIAL IV ONE (14:00)
[2020-09-08] MEDS ORDERED: PROPOFOL IV EMULSION 10 MG/ML 20 ML VIAL IV ONE (14:00)
[2020-09-08] MEDS ORDERED: GLYCOPYRROLATE 0.2 MG/ML VIAL ONE (14:00)
[2020-09-08] MEDS ORDERED: LIDOCAINE HCL 2% 2 ML VIAL/AMP(20MG/ML) INFIL ONE (14:00)
[2020-09-08] MEDS ORDERED: ONDANSETRON INJ 2 MG/ML 2 ML VIAL ONE (14:00)
[2020-09-08] MEDS ORDERED: PHENYLEPHRINE HCL 10 MG/ML VIAL ONE (14:45)
--- NOTE | 2020-09-08 15:22 | Post Operative Brief Note ---
Immediate Post Op Note v1 Date of Surgery September 08, 2020 Pre & Post Diagnosis Operation Date: 09/08/20 10:30 Pre-Op Diagnosis: Right displaced subcapital femoral neck hip fracture Post-Op Diagnosis: Right displaced subcapital femoral neck hip fracture I identified the patient and participated in the time-out.: Yes Procedure Operation Date: 09/08/20 10:30 Actual Procedures p Right Bipolar hemiarthroplasty with Sixto/Biomet 15 mm standard offset Taperloc stem, 52 mm outer diameter bipolar head, 28 mm femoral head with a -3 mm neck (Right) - Geovanny John DO Surgeon Geovanny John DO Certified Nurse Midwife Antelmo Lara PA-C Estimated Blood Loss 125 Findings Consistent with Post-Op Diagnosis Specimens Bone and tissue right hip Drains Adams Catheter (patient entered OR suite with adams intact) and Hemovac Drain Anesthesia Type Spinal MAC Complications none Disposition Accompanied Patient To Recovery: No Disposition: Recovery Room
--- NOTE | 2020-09-08 16:04 | Anesthesiology Progress Note ---
Date of Service September 08, 2020 Anesthesia Post Procedure Vital Signs Vital Signs: Temp Pulse Pulse Pulse Resp BP BP 09/08/20 16:00 75 18 09/08/20 15:50 65 14 09/08/20 15:40 64 15 09/08/20 15:33 36.4 C L 73 14 09/08/20 12:14 37 C 72 67 18 162/99 H 09/08/20 07:55 36.7 C 72 18 167/87 H 09/08/20 03:16 177/81 H 09/08/20 00:50 37 C 72 18 175/93 H 09/08/20 00:10 78 15 143/81 H 09/07/20 23:30 79 19 133/86 09/07/20 23:00 74 18 121/69 09/07/20 22:30 73 21 140/83 09/07/20 22:00 69 20 146/83 H 09/07/20 21:30 67 19 157/92 H 09/07/20 21:13 69 21 154/93 H 09/07/20 20:30 67 20 09/07/20 19:29 66 15 136/88 09/07/20 18:39 36.9 C 78 18 136/88 09/07/20 18:36 72 15 136/88 BP Pulse Ox 09/08/20 16:00 141/86 H 97 09/08/20 15:50 122/74 99 09/08/20 15:40 121/72 100 09/08/20 15:33 148/83 H 98 09/08/20 12:14 96 09/08/20 07:55 95 09/08/20 03:16 09/08/20 00:50 94 09/08/20 00:10 95 09/07/20 23:30 94 09/07/20 23:00 94 09/07/20 22:30 95 09/07/20 22:00 95 09/07/20 21:30 94 09/07/20 21:13 94 09/07/20 20:30 94 09/07/20 19:29 94 09/07/20 18:39 94 09/07/20 18:36 96 Transfer of Care Handoff Completed per policy Notes Mental Status: alert / awake / arousable and participated in evaluation Patient Amnestic to Procedure: Yes Nausea / Vomiting: adequately controlled Pain: adequately controlled Airway Patency, RR, SpO2: stable & adequate BP & HR: stable & adequate Hydration State: stable & adequate Anesthetic Complications: no major complications apparent and Pt Satisfied with anesthetic care
--- NOTE | 2020-09-08 16:29 | XRay Report ---
XR hip 1V RT w pelvis HISTORY: 74 years-old Male IN PACU - A/P PELVIS and LATERAL HIP right hip total joint arthroplasty COMPARISON: Right femur radiographs of same day TECHNIQUE: AP view of the pelvis with crosstable lateral view of the right hip FINDINGS: Right hip total joint arthroplasty. Satisfactory alignment of the hardware. Lateral skin piotr are noted along with expected postsurgical soft tissue swelling and deep tissue air with surgical drainag e catheter. Urinary bladder calculi are redemonstrated. There is a long segment of cortical thickenin g involving the lateral cortex of the proximal to mid left femoral diaphysis measuring up to 14 cm in length. IMPRESSION: 1. Right hip total joint arthroplasty with expected postoperative changes. 2. 14 cm segment of indeterminate cortical thickening of the left femoral shaft. Correlate with prior imaging. 3. Urinary bladder calculi. ACT 112: Negative or not required by law. The above report was generated using voice recognition software. It may contain grammatical, syntax o r spelling errors. Electronically signed by: Emanuel Browne M.D. 09/08/2020 4:28 PM
[2020-09-08] MEDS ORDERED: MAGNESIUM HYDROXIDE SUSP 30 ML UDC PO PRN (16:32)
[2020-09-08] MEDS ORDERED: NALOXONE HCL 0.4 MG/1 ML VIAL/CARP IV PRN (16:32)
[2020-09-08] MEDS ORDERED: bisacodyL 10 MG SUPP PR PRN (16:32)
--- NOTE | 2020-09-08 17:07 | Operative Report (OR) ---
DATE OF OPERATION: 09/08/2020 PREOPERATIVE DIAGNOSIS: Right displaced femoral neck fracture. POSTOPERATIVE DIAGNOSIS: Right displaced femoral neck fracture. PROCEDURES PERFORMED: Right bipolar hemiarthroplasty with Sixto Biomet 15 mm standard offset Taperloc stem, 52 mm outer diameter bipolar head, 28 mm femoral head with a -3 mm neck length. SURGEON: Geovanny John DO. SEO INTERN: Antelmo Lara PA-C who was present for patient positioning, sterile prep and drape, management of retractors and instruments. He was present through the critical portions of the case including wound closure, application of sterile dressing and transport of the patient to recovery. ANESTHESIA: Spinal, MAC with intra-articular local. SPECIMENS: Bone and tissue, right hip. DRAINS: Hemovac x2. COMPLICATIONS: None. BLOOD LOSS: 125 mL. PERTINENT HISTORY: This is a 74-year-old gentleman with dementia who sustained a mechanical fall on his right hip. Unable to ambulate, transported to [facility] where he was evaluated by the Emergency Department and had radiographs obtained noting a displaced femoral neck fracture. The patient was admitted to the hospitalist service, optimized for surgery and then after orthopedic consultation was performed, the patient was scheduled for surgery as indicated. All potential risks, benefits, complications, alternatives, rehab potential for incomplete relief of symptoms, need for further surgery, DVT, PE, , persistent pain, swelling, scarring, weakness, neurovascular injury, wound complications, hardware failure, nonunion, malunion and bone fracture were discussed with the patient and his power of attorney lawyer, they both decided to proceed with the procedure as indicated. DESCRIPTION OF PROCEDURE: The patient was taken to the operative suite and placed supine on the Operating Room table. After review of the consent, identification of proper operative site, the patient was sedated. Spinal anesthetic was administered without difficulty. The patient was then placed in a left lateral decubitus position with the affected side up. Stulberg positioning pads were placed on the OR table. All bony prominences were properly padded and protected including use of an axillary roll. After the right hip was then sterilely prepped and draped in usual fashion, a 10 blade scalpel incision was made centered over the anterior one third of the greater trochanter. The incision was deepened to subcutaneous tissue. Meticulous hemostasis with electrocautery. Full thickness skin flaps were developed. Care was taken to cauterize any small punctate bleeders with a Bovie. Next, the iliotibial band was then incised along the skin incision, retracted both anteriorly and posteriorly using a Charnley retractor over moistened surgical towels. Next, abductor split was made over the neck and head of the femur down to the level of the trochanter and then this was carried around the greater trochanter and then down the shaft of the femur via the vastus lateralis. All soft tissues were then sharply elevated with electrocautery anteriorly including the gluteus medius, the gluteus sowmya, the capsule and then the vastus lateralis. The fractured femoral neck was clearly identified and then a sagittal saw was used to resect the proximal neck cut without any difficulty approximately one fingerbreadth proximal to the lesser trochanter. Next, the femoral head was extracted from the acetabulum and measured to be approximately 52 mm in diameter. A 52 mm trial was placed with appropriate retractors around the acetabulum, noted to have excellent fit and stability. Then box osteotome and trial reamer placed in the proximal femur followed by sequential upbroaching until a size 15 was firmly placed. Next, the calcar reamer was utilized to smooth the proximal femur followed by placement of a - 3 mm neck, 135 neck angle and a 52 mm outer diameter trial. This was reduced and noted to have excellent stability and range of motion. Leg lengths were reapproximated to neutral and then all trial implants were then removed. Pulsatile lavage with 3 liters of the solution was used to lavaged the femur, acetabulum and then all soft tissues. Next, final implant of a Sixto Biomet 15 mm standard offset Taperloc stem femoral implant with a 135 neck angle -3 site with a standard offset was implanted without difficulty and a 28 mm [place] chrome head -3 mm neck length and a 52 mm inner diameter, 52 mm outer diameter bipolar head was then placed. The acetabulum was then suctioned, reduced. Excellent range of motion and recreation of leg length was achieved. Shuck test was nearly perfect. The leg lengths were restored. Excellent stability. Next, pulsatile lavage was used to cleanse the deep capsule and all soft tissues. Next a #5 Tycron was placed through the greater trochanter and sutured through the anterior capsule, gluteus minimus and then into the gluteus medius and then sutured back to the greater trochanter with two deep Hemovac drains placed. Suture was then tied and cut followed by two [id number] sutures of #5 Tycron in the proximal capsule. Next, the vastus lateralis was then closed using interrupted #1 Vicryl. The gluteus sowmya was closed using #1 Vicryl. The iliotibial band was closed using #1 Vicryl. The wound was copiously irrigated with pulsatile lavage and then the dermis was closed using buried interrupted 2-0 Vicryl. Skin was closed using skin piotr. A sterile compressive dressing was applied overwrapped with foam tape. The patient was then awakened and taken to recovery in stable condition with an abductor pillow. I attest to the content of the Intraoperative Record and any orders documented therein. Any exception s are noted below.
[2020-09-08] MEDS: SODIUM CHLORIDE 0.9% 1000ML 1,000 ML IV SCH (17:12)
[2020-09-08] MEDS: FERROUS GLUCONATE 324 MG TAB PO SCH (17:18)
[2020-09-08] MEDS: CIPROFLOXACIN 500 MG TAB PO SCH (21:36)
[2020-09-08] MEDS: DOCUSATE SODIUM 100 MG CAP PO SCH (21:36)
[2020-09-08] MEDS: SENNA 8.6 MG TAB PO SCH (21:36)
[2020-09-08] MEDS: ASPIRIN 81 MG ECTAB PO SCH (21:36)
[2020-09-08] MEDS: ceFAZolin 1000MG 1,000 MG/7.5 ML SYR IV SCH (21:44)
[2020-09-09] MEDS: SODIUM CHLORIDE 0.9% 1000ML 1,000 ML IV SCH (03:53)
[2020-09-09] MEDS: ceFAZolin 1000MG 1,000 MG/7.5 ML SYR IV SCH (05:56)
--- NOTE | 2020-09-09 07:18 | Electrocardiogram Report ---
Test Reason : Blood Pressure : / mmHG Vent. Rate : 071 BPM Atrial Rate : 071 BPM P-R Int : 184 ms QRS Dur : 102 ms QT Int : 368 ms P-R-T Axes : 040 -43 067 degrees QTc Int : 399 ms Normal sinus rhythm Left axis deviation Low voltage QRS Nonspecific T wave abnormality Abnormal ECG When compared with ECG of 27-JUN-2020 14:25, T wave inversion no longer evident in Inferior leads Nonspecific T wave abnormality, worse in Lateral leads Confirmed by Ed Mullen ([id number]) on 09/09/2020 7:18:12 AM Referred By: REFERRED SELF Confirmed By:Ed Mullen
[2020-09-09 07:59] LABS: Eosinophils # (auto) 0.05 K/uL (0-0.5); Eosinophils % (auto) 0.5 %; Hematocrit (blood only) 39.1 % (42-52); Hemoglobin 12.7 g/dL (14.0-18.0); Immature Granulocytes # (auto) 0.02 K/uL (0.00-0.02); Immature Granulocytes % (auto) 0.2 %; Lymphocytes # (auto) 0.39 K/uL (1.2-3.4); Lymphocytes % (auto) 4.3 %; Mean Corpuscular Hemoglobin 29.8 pg (25-34); Mean Corpuscular Hgb Conc 32.5 g/dL (32-36); Mean Corpuscular Volume 91.8 fL (80-100); Monocytes # (auto) 0.58 K/uL (0.11-0.59); Monocytes % (auto) 6.4 %; Neutrophils # (auto) 8.06 K/uL (1.4-6.5); Neutrophils % (auto) 88.6 %; Platelet Count 136 K/uL (130-400); RDW Coefficient of Variation 14.6 % (11.5-14.5); RDW Standard Deviation 49.2 fL (36.4-46.3); Red Blood Count 4.26 M/uL (4.7-6.1)
[2020-09-09] MEDS ORDERED: traMADol HCL 50 MG TABLET PO PRN (08:28)
[2020-09-09 08:48] LABS: BUN Creatinine Ratio 31.6 (10-20); Calcium 8.3 mg/dl (8.5-10.1); Creatinine Clr Calc Pharmacy 67.5 ml/min; Est GFR (African American) 97.6; Est GFR (Non-African American) 84.2; Potassium 4.6 mmol/L (3.5-5.1)
[2020-09-09] MEDS: CARBIDOPA/LEVODOPA 25/100MG TAB PO SCH ×4 (09:01→21:49)
[2020-09-09] MEDS: ASPIRIN 81 MG ECTAB PO SCH ×2 (09:02→21:49)
[2020-09-09] MEDS: amLODIPine BESYLATE 5 MG TAB PO SCH (09:02)
[2020-09-09] MEDS: FERROUS GLUCONATE 324 MG TAB PO SCH ×2 (09:02→16:08)
[2020-09-09] MEDS: CIPROFLOXACIN 500 MG TAB PO SCH (09:02)
[2020-09-09] MEDS: MULTIVITAMIN TAB PO SCH (09:02)
[2020-09-09] MEDS: AMANTADINE HCL 100 MG CAPSULE PO SCH ×2 (09:02→21:49)
[2020-09-09] MEDS: DOCUSATE SODIUM 100 MG CAP PO SCH ×2 (09:03→21:48)
--- NOTE | 2020-09-09 10:08 | Orthopedic Progress Note ---
Date of Service September 09, 2020 Assessment & Plan (1) Fracture of right hip: POD 1 s/p Right Bipolar Hemiarthroplasty PT/OT protocols. WBAT DVT prophylaxis - ASA bid, SCD's Pain management as written. DC planning - as per Med Service Admission and Anticipated Discharge Date Admission Date: September 07, 2020 Subjective POD 1 Pt sitting up in chair at bedside. States he has had PT this AM and seemed to go well. Pain controlled. Denies SOB,CP,LH. Physical Exam Physical Exam: Cindi Dressing C/D/I. Calves soft, NT. NV intact. Toes mobile. Leg lenghts appear equal. HV drainage 25ml's from the latest shift. Results & Data ([facility]) Vital Signs (Past 12 Hours) Vital Signs Temp Pulse Resp BP BP Pulse Ox 09/09/20 07:04 36.3 C L 55 L 16 133/78 95 09/09/20 03:40 36.5 C 57 L 19 129/70 94 09/08/20 23:44 36.4 C L 63 18 124/81 97 Laboratory Results Laboratory Results WBC 9.10 K/uL (4.8-10.8) 09/09/20 07:38 RBC 4.26 M/uL (4.7-6.1) L 09/09/20 07:38 Hgb 12.7 g/dL (14.0-18.0) L 09/09/20 07:38 Hct 39.1 % (42-52) L 09/09/20 07:38 MCV 91.8 fL (80-100) 09/09/20 07:38 MCH 29.8 pg (25-34) 09/09/20 07:38 MCHC 32.5 g/dL (32-36) 09/09/20 07:38 RDW Std Deviation 49.2 fL (36.4-46.3) H 09/09/20 07:38 RDW Coeff of [place] 14.6 % (11.5-14.5) H 09/09/20 07:38 Plt Count 136 K/uL (130-400) 09/09/20 07:38 MPV 10.0 fL (7.4-10.4) 09/09/20 07:38 Immature Gran % (Auto) 0.2 % 09/09/20 07:38 Neut % (Auto) 88.6 % 09/09/20 07:38 Lymph % (Auto) 4.3 % 09/09/20 07:38 [place] % (Auto) 6.4 % 09/09/20 07:38 Eos % (Auto) 0.5 % 09/09/20 07:38 Baso % (Auto) 0.0 % 09/09/20 07:38 Neut # (Auto) 8.06 K/uL (1.4-6.5) H 09/09/20 07:38 Lymph # (Auto) 0.39 K/uL (1.2-3.4) L 09/09/20 07:38 [place] # (Auto) 0.58 K/uL (0.11-0.59) 09/09/20 07:38 Eos # (Auto) 0.05 K/uL (0-0.5) 09/09/20 07:38 Baso # (Auto) 0.00 K/uL (0-0.2) 09/09/20 07:38 Immature Gran # (Auto) 0.02 K/uL (0.00-0.02) 09/09/20 07:38 PT 10.9 Seconds (9.0-12.0) 09/07/20 19:24 INR 1.0 (0.9-1.1) 09/07/20 19:24 APTT 29.1 Seconds (21.0-31.0) 09/07/20 19:24 PTT Ratio 1.0 09/07/20 19:24 Sodium 142 mmol/L (136-145) 09/09/20 07:38 Potassium 4.6 mmol/L (3.5-5.1) D 09/09/20 07:38 Chloride 113 mmol/L (98-107) H 09/09/20 07:38 Carbon Dioxide 24 mmol/L (21-32) 09/09/20 07:38 Anion Gap 5.0 (3-11) 09/09/20 07:38 BUN 27 mg/dl (7-18) H 09/09/20 07:38 Creatinine 0.86 mg/dl (0.6-1.4) 09/09/20 07:38 Est Cr Clr Drug Dosing 67.5 ml/min 09/09/20 07:38 Est GFR ( Amer) 97.6 09/09/20 07:38 Est GFR (Non-Af Amer) 84.2 09/09/20 07:38 BUN/Creatinine Ratio 31.6 (10-20) H 09/09/20 07:38 Glucose 95 mg/dl (70-99) 09/09/20 07:38 Calcium 8.3 mg/dl (8.5-10.1) L 09/09/20 07:38 Magnesium 2.2 mg/dl (1.8-2.4) 09/08/20 06:28 Urine Color Yellow 09/07/20 22:55 Urine Appearance Cloudy (Clear) A 09/07/20 22:55 Urine pH 6.5 (4.5-7.5) 09/07/20 22:55 Ur Specific [place] 1.019 (1.000-1.030) 09/07/20 22:55 Urine Protein Trace (Negative) H 09/07/20 22:55 Urine Glucose (UA) Negative (Negative) 09/07/20 22:55 Urine Ketones Negative (Negative) 09/07/20 22:55 Urine Blood Trace (Negative) H 09/07/20 22:55 Urine Nitrite Negative (Negative) 09/07/20 22:55 Urine Bilirubin Negative (Negative) 09/07/20 22:55 Urine Urobilinogen Negative (Negative) 09/07/20 22:55 Ur Leukocyte Esterase 3+ (Negative) H 09/07/20 22:55 Urine WBC (Auto) >30 /hpf (0-5) H 09/07/20 22:55 Urine RBC (Auto) 5-10 /hpf (0-4) H 09/07/20 22:55 U Hyaline Cast (Auto) 1-5 /lpf (0-5) 09/07/20 22:55 U Epithel Cells (Auto) 20-30 /lpf (0-5) H 09/07/20 22:55 Urine Bacteria (Auto) 3+ (Negative) H 09/07/20 22:55 COVID-19 Eval Order Covid19 [facility] 09/07/20 22:51 SARS-CoV-2, RNA, NAAT NEGATIVE (NEGATIVE) 09/07/20 22:51 Blood Type B Positive 09/07/20 19:24 Blood Type Recheck B Positive 09/08/20 06:28 Antibody Screen NEGATIVE 09/07/20 19:24 Crossmatch See Detail 09/07/20 19:24 (1) Fracture of right hip Encounter type: initial encounter Fracture type: closed Qualified Code(s): S72.001A - Fracture of unspecified part of neck of right femur, initial encounter for closed fracture
[2020-09-09] MEDS ORDERED: SODIUM CHLORIDE 0.9% 1000ML 500 ML IV ONE (14:23)
[2020-09-09] MEDS: cephALEXin 500 MG CAP PO SCH (16:08)
--- NOTE | 2020-09-09 16:32 | Hospitalist Progress Note ---
Date of Service September 09, 2020 Assessment & Plan (1) Fracture of right hip: Patient is a 74 yr male who presents for evaluation of right hip pain after sustaining a mechanical fal. Right hip fracture Patient denies head trauma Status post right bipolar hemiarthroplasty on 09/08/2020 Pain control Appreciate Orthopedics help PT/OT Bowel regimen to prevent constipation Monitor for Pot op anemia Likely to need rehab placement Parkinson's Disease Continue amantadine, carbidopa/levodopa Hypertension. BP elevated likely situational due to pain Continue amlodipine Monitor [id number] H/O Urinary retention BPH Follows with Urology as outpatient H/O COVID Diagnosed on 06/04/2020 Stable COVID Screen on 09/07/20:Negative H/O Inguinal hernia Followed with Surgery Dementia Reorient frequently to minimize delirium Monitor DVT Px: SCDs for now Re: Surgery planned CODE STATUS: DNR/DNI Disposition PT/OT prior to discharge Will need rehab placement Admission and Anticipated Discharge Date Admission Date: September 07, 2020 Subjective 09/09/2020 The patient was seen and examined in medical floor He is status post right bipolar hemiarthroplasty on 09/08/2020 following a mechanical fall at home Remains weak and lethargic Denies any significant symptoms Review of Systems Review of Systems: All systems reviewed and are unremarkable except as noted below Musculoskeletal: Pain in right hip with any movement of the right lower extremity Physical Exam Physical Exam: Sitting on a chair without any acute distress Constitutional: well developed, well nourished and + ill appearing Eyes: PERRL, conjunctivae normal, anicteric sclerae ENMT: external ear and nose normal, oropharynx normal Neck: trachea midline, no thyromegaly Respiratory: no respiratory distress Auscultation: lungs clear to auscultation bilaterally Cardiovascular: Rate/Rhythm: regular rate and regular rhythm Heart Sounds: no murmur Extremities: + edema (Trace edema bilaterally) Gastrointestinal (Abdomen): Inspection/Auscultation: normal bowel sounds; abdomen not distended Percussion/Palpation: abdomen soft; abdomen nontender Musculoskeletal: Hip: + limited ROM of hip (Right hip with pain) Neurologic: Alert, awake and oriented x3. Generally weak and lethargic Lymphatic: no cervical or axillary lymphadenopathy Results & Data Results & Data ([facility]) Vital Signs (Past 12 Hours) Vital Signs Temp Pulse Resp BP Pulse Ox 09/09/20 15:16 36.9 C 78 20 134/77 95 09/09/20 07:04 36.3 C L 55 L 16 133/78 95 Laboratory Results Short CBC 09/09/20 Range/Units 07:38 WBC 9.10 (4.8-10.8) K/uL Hgb 12.7 L (14.0-18.0) g/dL Hct 39.1 L (42-52) % Plt Count 136 (130-400) K/uL BMP 09/09/20 07:38 Sodium 142 Potassium 4.6 D Chloride 113 H Carbon Dioxide 24 BUN 27 H Creatinine 0.86 Glucose 95 Calcium 8.3 L Medications Administered Current Inpatient Medications Acetaminophen (Acetaminophen 325 Mg Tab) 650 mg PO Q4H PRN PRN Reason: pain/fever Stop: 10/08/20 00:42 Last Admin: 09/09/20 09:15 Dose: 650 mg Documented by: Amantadine HCl (Amantadine Hcl 100 Mg Capsule) 100 mg PO BID [facility] Stop: 10/08/20 08:59 Last Admin: 09/09/20 09:02 Dose: 100 mg Documented by: Amlodipine Besylate (Amlodipine Besylate 5 Mg Tab) 2.5 mg PO DAILY [facility] Stop: 10/08/20 08:59 Last Admin: 09/09/20 09:02 Dose: 2.5 mg Documented by: Aspirin (Aspirin 81 Mg Ectab) 81 mg PO BID [facility] Stop: 10/08/20 20:59 Last Admin: 09/09/20 09:02 Dose: 81 mg Documented by: Bisacodyl (Bisacodyl 10 Mg Supp) 10 mg [place] DAILY PRN PRN Reason: Constipation Stop: 10/08/20 16:31 Carbidopa/Levodopa (Carbidopa/Levodopa 25/100mg Tab) 1 tab PO QID [facility] Stop: 10/08/20 08:59 Last Admin: 09/09/20 16:08 Dose: 1 tab Documented by: Cephalexin HCl (Cephalexin 500 Mg Cap) 500 mg PO BID [facility] Stop: 09/14/20 15:29 Last Admin: 09/09/20 16:08 Dose: 500 mg Documented by: Diphenhydramine HCl (Diphenhydramine Capsule 25 Mg Cap) 25 mg PO Q6H PRN PRN Reason: Allergy Symptoms Stop: 10/08/20 00:53 Docusate Sodium (Docusate Sodium 100 Mg Cap) 100 mg PO DAILY PRN PRN Reason: Constipation Stop: 10/08/20 00:42 Docusate Sodium (Docusate Sodium 100 Mg Cap) 100 mg PO BID [facility] Stop: 10/08/20 20:59 Last Admin: 09/09/20 09:03 Dose: 100 mg Documented by: Ferrous Gluconate (Ferrous Gluconate 324 Mg Tab) 324 mg PO BIDM [facility] Stop: 10/08/20 16:59 Last Admin: 09/09/20 16:08 Dose: 324 mg Documented by: Magnesium Hydroxide (Magnesium Hydroxide Susp 30 Ml Udc) 30 ml PO Q6H PRN PRN Reason: Constipation Stop: 10/08/20 16:31 Morphine Sulfate (Morphine Sulfate 2 Mg/Ml Carp) 2 mg IV Q3H PRN PRN Reason: Pain Stop: 09/22/20 00:42 Last Admin: 09/08/20 01:10 Dose: 2 mg Documented by: Multivitamins (Multivitamin Tab) 1 tab PO [facility] Stop: 10/09/20 08:59 Last Admin: 09/09/20 09:02 Dose: 1 tab Documented by: Naloxone HCl (Naloxone Hcl 0.4 Mg/1 Ml Vial/Carp) 0.1 mg IV Q5M PRN PRN Reason: Oversedation/Resp Depression Stop: 10/08/20 16:31 Nystatin (Nystatin Cr 15 Gm Tube) 1 appln EXT BID PRN PRN Reason: Rash Stop: 10/08/20 00:42 Ondansetron HCl (Ondansetron Inj 2 Mg/Ml 2 Ml Vial) 4 mg IV Q6H PRN PRN Reason: Nausea Stop: 10/08/20 00:42 Polyethylene Glycol (Polyethylene (Miralax) 17 Gm Pack) 17 gm PO DAILY PRN PRN Reason: Constipation Stop: 10/08/20 00:42 Sennosides (Senna 8.6 Mg Tab) 17.2 mg PO HS [facility] Stop: 10/08/20 20:59 Last Admin: 09/08/20 21:36 Dose: 17.2 mg Documented by: Tramadol HCl (Tramadol Hcl 50 Mg Tablet) 50 mg PO Q4H PRN PRN Reason: Pain Stop: 10/09/20 08:27 (1) Fracture of right hip Encounter type: initial encounter Fracture type: closed Qualified Code(s): S72.001A - Fracture of unspecified part of neck of right femur, initial encounter for closed fracture
[2020-09-09] MEDS: SENNA 8.6 MG TAB PO SCH (21:49)
[2020-09-10] MEDS: cephALEXin 500 MG CAP PO SCH ×2 (00:19→09:30)
[2020-09-10] MEDS: MULTIVITAMIN TAB PO SCH (09:30)
[2020-09-10] MEDS: AMANTADINE HCL 100 MG CAPSULE PO SCH ×2 (09:30→20:04)
[2020-09-10] MEDS: FERROUS GLUCONATE 324 MG TAB PO SCH ×2 (09:30→17:17)
[2020-09-10] MEDS: CARBIDOPA/LEVODOPA 25/100MG TAB PO SCH ×4 (09:31→20:04)
[2020-09-10] MEDS: ASPIRIN 81 MG ECTAB PO SCH ×2 (09:31→20:04)
[2020-09-10] MEDS: amLODIPine BESYLATE 5 MG TAB PO SCH (09:31)
[2020-09-10] MEDS: DOCUSATE SODIUM 100 MG CAP PO SCH ×2 (09:32→20:04)
--- NOTE | 2020-09-10 11:35 | Orthopedic Progress Note ---
Date of Service September 10, 2020 Assessment & Plan (1) Fracture of right hip: POD 2 s/p Right Bipolar Hemiarthroplasty Appears to be doing well. Plan for drain removal today. PT/OT protocols. WBAT DVT prophylaxis - ASA bid, SCD's Pain management as written. DC planning - Ok for dc to [facility] per Ortho. Transfer when ok with Med Service. Admission and Anticipated Discharge Date Admission Date: September 07, 2020 Subjective POD 2 Pt sitting up in chair at bedside. Pain controlled. No complaints. More conversant this AM. Hoping to leave the hospital soon. Denies SOB,CP,LH Physical Exam Physical Exam: Cindi dressing intact. HV present with mild drainage noted. No erythema noted around dressing. Calves, soft,NT. NV intact. Toes mobile. Leg lengths appear equal. Results & Data ([facility]) Vital Signs (Past 12 Hours) Vital Signs Temp Pulse Resp BP Pulse Ox 09/10/20 09:29 110/75 09/10/20 07:33 36.8 C 72 16 136/79 93 09/09/20 23:39 37.3 C 77 14 156/82 H 93 Laboratory Results Laboratory Results WBC 9.10 K/uL (4.8-10.8) 09/09/20 07:38 RBC 4.26 M/uL (4.7-6.1) L 09/09/20 07:38 Hgb 12.7 g/dL (14.0-18.0) L 09/09/20 07:38 Hct 39.1 % (42-52) L 09/09/20 07:38 MCV 91.8 fL (80-100) 09/09/20 07:38 MCH 29.8 pg (25-34) 09/09/20 07:38 MCHC 32.5 g/dL (32-36) 09/09/20 07:38 RDW Std Deviation 49.2 fL (36.4-46.3) H 09/09/20 07:38 RDW Coeff of [place]ley 14.6 % (11.5-14.5) H 09/09/20 07:38 Plt Count 136 K/uL (130-400) 09/09/20 07:38 MPV 10.0 fL (7.4-10.4) 09/09/20 07:38 Immature Gran % (Auto) 0.2 % 09/09/20 07:38 Neut % (Auto) 88.6 % 09/09/20 07:38 Lymph % (Auto) 4.3 % 09/09/20 07:38 [place] % (Auto) 6.4 % 09/09/20 07:38 Eos % (Auto) 0.5 % 09/09/20 07:38 Baso % (Auto) 0.0 % 09/09/20 07:38 Neut # (Auto) 8.06 K/uL (1.4-6.5) H 09/09/20 07:38 Lymph # (Auto) 0.39 K/uL (1.2-3.4) L 09/09/20 07:38 [place] # (Auto) 0.58 K/uL (0.11-0.59) 09/09/20 07:38 Eos # (Auto) 0.05 K/uL (0-0.5) 09/09/20 07:38 Baso # (Auto) 0.00 K/uL (0-0.2) 09/09/20 07:38 Immature Gran # (Auto) 0.02 K/uL (0.00-0.02) 09/09/20 07:38 PT 10.9 Seconds (9.0-12.0) 09/07/20 19:24 INR 1.0 (0.9-1.1) 09/07/20 19:24 APTT 29.1 Seconds (21.0-31.0) 09/07/20 19:24 PTT Ratio 1.0 09/07/20 19:24 Sodium 142 mmol/L (136-145) 09/09/20 07:38 Potassium 4.6 mmol/L (3.5-5.1) D 09/09/20 07:38 Chloride 113 mmol/L (98-107) H 09/09/20 07:38 Carbon Dioxide 24 mmol/L (21-32) 09/09/20 07:38 Anion Gap 5.0 (3-11) 09/09/20 07:38 BUN 27 mg/dl (7-18) H 09/09/20 07:38 Creatinine 0.86 mg/dl (0.6-1.4) 09/09/20 07:38 Est Cr Clr Drug Dosing 67.5 ml/min 09/09/20 07:38 Est GFR ( Amer) 97.6 09/09/20 07:38 Est GFR (Non-Af Amer) 84.2 09/09/20 07:38 BUN/Creatinine Ratio 31.6 (10-20) H 09/09/20 07:38 Glucose 95 mg/dl (70-99) 09/09/20 07:38 POC Glucose 108 mg/dl (70-99) H 09/09/20 17:03 Calcium 8.3 mg/dl (8.5-10.1) L 09/09/20 07:38 Magnesium 2.2 mg/dl (1.8-2.4) 09/08/20 06:28 Urine Color Yellow 09/07/20 22:55 Urine Appearance Cloudy (Clear) A 09/07/20 22:55 Urine pH 6.5 (4.5-7.5) 09/07/20 22:55 Ur Specific [place] 1.019 (1.000-1.030) 09/07/20 22:55 Urine Protein Trace (Negative) H 09/07/20 22:55 Urine Glucose (UA) Negative (Negative) 09/07/20 22:55 Urine Ketones Negative (Negative) 09/07/20 22:55 Urine Blood Trace (Negative) H 09/07/20 22:55 Urine Nitrite Negative (Negative) 09/07/20 22:55 Urine Bilirubin Negative (Negative) 09/07/20 22:55 Urine Urobilinogen Negative (Negative) 09/07/20 22:55 Ur Leukocyte Esterase 3+ (Negative) H 09/07/20 22:55 Urine WBC (Auto) >30 /hpf (0-5) H 09/07/20 22:55 Urine RBC (Auto) 5-10 /hpf (0-4) H 09/07/20 22:55 U Hyaline Cast (Auto) 1-5 /lpf (0-5) 09/07/20 22:55 U Epithel Cells (Auto) 20-30 /lpf (0-5) H 09/07/20 22:55 Urine Bacteria (Auto) 3+ (Negative) H 09/07/20 22:55 COVID-19 Eval Order Covid19 IDNow [facility] 09/07/20 22:51 SARS-CoV-2, RNA, NAAT NEGATIVE (NEGATIVE) 09/07/20 22:51 Blood Type B Positive 09/07/20 19:24 Blood Type Recheck B Positive 09/08/20 06:28 Antibody Screen NEGATIVE 09/07/20 19:24 Crossmatch See Detail 09/07/20 19:24 (1) Fracture of right hip Encounter type: initial encounter Fracture type: closed Qualified Code(s): S72.001A - Fracture of unspecified part of neck of right femur, initial encounter for closed fracture
[2020-09-10] MEDS: AMOXICILLIN 500 MG CAP PO SCH ×2 (12:56→20:04)
--- NOTE | 2020-09-10 13:34 | Hospitalist Progress Note ---
Date of Service September 10, 2020 Assessment & Plan (1) Fracture of right hip: Patient is a 74 yr male who presents for evaluation of right hip pain after sustaining a mechanical fal. Right hip fracture Patient denies head trauma Status post right bipolar hemiarthroplasty on 09/08/2020 Appreciate Orthopedics input and recommendation PT/OT is ongoing Bowel regimen to prevent constipation Monitor for Pot op anemia Likely to need rehab placement-medically stable to be discharged Parkinson's Disease Continue amantadine, carbidopa/levodopa No significant symptoms Hypertension. BP elevated likely situational due to pain Continue amlodipine Monitor [id number] H/O Urinary retention BPH Follows with Urology as outpatient H/O COVID Diagnosed on 06/04/2020 Stable COVID Screen on 09/07/20:Negative H/O Inguinal hernia Followed with Surgery Dementia Reorient frequently to minimize delirium Monitor DVT Px: SCDs for now Re: Surgery planned CODE STATUS: DNR/DNI Disposition PT/OT prior to discharge Will need rehab placement Admission and Anticipated Discharge Date Admission Date: September 07, 2020 Subjective 09/09/2020 The patient was seen and examined in medical floor He is status post right bipolar hemiarthroplasty on 09/08/2020 following a mechanical fall at home Remains weak and lethargic Denies any significant symptoms 09/10/2020 The patient was seen and examined in the medical floor He is POD #2 status post right bipolar hemiarthroplasty Has been feeling much better today but remains generally weak Has been getting PT and OT Review of Systems Review of Systems: All systems reviewed and are unremarkable except as noted below Musculoskeletal: Pain in right hip with any movement of the right lower extremity Physical Exam Physical Exam: Sitting on a chair without any acute distress Constitutional: well developed, well nourished and + ill appearing Eyes: PERRL, conjunctivae normal, anicteric sclerae ENMT: external ear and nose normal, oropharynx normal Neck: trachea midline, no thyromegaly Respiratory: no respiratory distress Auscultation: lungs clear to auscultation bilaterally Cardiovascular: Rate/Rhythm: regular rate and regular rhythm Heart Sounds: no murmur Extremities: + edema (Trace edema bilaterally) Gastrointestinal (Abdomen): Inspection/Auscultation: normal bowel sounds; abdomen not distended Percussion/Palpation: abdomen soft; abdomen nontender Musculoskeletal: Hip: + limited ROM of hip (Right hip with pain) Neurologic: Alert, awake and oriented x3. Generally weak Psychiatric: A+Ox3, euthymic affect Lymphatic: no cervical or axillary lymphadenopathy Results & Data Results & Data ([facility]) Vital Signs (Past 12 Hours) Vital Signs Temp Pulse Resp BP Pulse Ox 09/10/20 09:29 110/75 09/10/20 07:33 36.8 C 72 16 136/79 93 Medications Administered Current Inpatient Medications Acetaminophen (Acetaminophen 325 Mg Tab) 650 mg PO Q4H PRN PRN Reason: pain/fever Stop: 10/08/20 00:42 Last Admin: 09/09/20 09:15 Dose: 650 mg Documented by: Amantadine HCl (Amantadine Hcl 100 Mg Capsule) 100 mg PO BID [facility] Stop: 10/08/20 08:59 Last Admin: 09/10/20 09:30 Dose: 100 mg Documented by: Amlodipine Besylate (Amlodipine Besylate 5 Mg Tab) 2.5 mg PO DAILY [facility] Stop: 10/08/20 08:59 Last Admin: 09/10/20 09:31 Dose: 2.5 mg Documented by: Amoxicillin (Amoxicillin 500 Mg Cap) 500 mg PO Q12 [facility] Stop: 09/15/20 12:29 Last Admin: 09/10/20 12:56 Dose: 500 mg Documented by: Aspirin (Aspirin 81 Mg Ectab) 81 mg PO BID [facility] Stop: 10/08/20 20:59 Last Admin: 09/10/20 09:31 Dose: 81 mg Documented by: Bisacodyl (Bisacodyl 10 Mg Supp) 10 mg [place] DAILY PRN PRN Reason: Constipation Stop: 10/08/20 16:31 Carbidopa/Levodopa (Carbidopa/Levodopa 25/100mg Tab) 1 tab PO QID [facility] Stop: 10/08/20 08:59 Last Admin: 09/10/20 12:57 Dose: 1 tab Documented by: Diphenhydramine HCl (Diphenhydramine Capsule 25 Mg Cap) 25 mg PO Q6H PRN PRN Reason: Allergy Symptoms Stop: 10/08/20 00:53 Docusate Sodium (Docusate Sodium 100 Mg Cap) 100 mg PO DAILY PRN PRN Reason: Constipation Stop: 10/08/20 00:42 Docusate Sodium (Docusate Sodium 100 Mg Cap) 100 mg PO BID [facility] Stop: 10/08/20 20:59 Last Admin: 09/10/20 09:32 Dose: 100 mg Documented by: Ferrous Gluconate (Ferrous Gluconate 324 Mg Tab) 324 mg PO BIDM [facility] Stop: 10/08/20 16:59 Last Admin: 09/10/20 09:30 Dose: 324 mg Documented by: Magnesium Hydroxide (Magnesium Hydroxide Susp 30 Ml Udc) 30 ml PO Q6H PRN PRN Reason: Constipation Stop: 10/08/20 16:31 Morphine Sulfate (Morphine Sulfate 2 Mg/Ml Carp) 2 mg IV Q3H PRN PRN Reason: Pain Stop: 09/22/20 00:42 Last Admin: 09/08/20 01:10 Dose: 2 mg Documented by: Multivitamins (Multivitamin Tab) 1 tab PO QAM [facility] Stop: 10/09/20 08:59 Last Admin: 09/10/20 09:30 Dose: 1 tab Documented by: Naloxone HCl (Naloxone Hcl 0.4 Mg/1 Ml Vial/Carp) 0.1 mg IV Q5M PRN PRN Reason: Oversedation/Resp Depression Stop: 10/08/20 16:31 Nystatin (Nystatin Cr 15 Gm Tube) 1 appln EXT BID PRN PRN Reason: Rash Stop: 10/08/20 00:42 Ondansetron HCl (Ondansetron Inj 2 Mg/Ml 2 Ml Vial) 4 mg IV Q6H PRN PRN Reason: Nausea Stop: 10/08/20 00:42 Polyethylene Glycol (Polyethylene (Miralax) 17 Gm Pack) 17 gm PO DAILY PRN PRN Reason: Constipation Stop: 10/08/20 00:42 Sennosides (Senna 8.6 Mg Tab) 17.2 mg PO [facility] Stop: 10/08/20 20:59 Last Admin: 09/09/20 21:49 Dose: 17.2 mg Documented by: Tramadol HCl (Tramadol Hcl 50 Mg Tablet) 50 mg PO Q4H PRN PRN Reason: Pain Stop: 10/09/20 08:27 (1) Fracture of right hip Encounter type: initial encounter Fracture type: closed Qualified Code(s): S72.001A - Fracture of unspecified part of neck of right femur, initial encounter for closed fracture
[2020-09-10] MEDS: SENNA 8.6 MG TAB PO SCH (20:04)
[2020-09-11 07:14] LABS: Basophils # (auto) 0.01 K/uL (0-0.2); Basophils % (auto) 0.2 %; Eosinophils # (auto) 0.18 K/uL (0-0.5); Eosinophils % (auto) 2.8 %; Hematocrit (blood only) 36.4 % (42-52); Hemoglobin 12.1 g/dL (14.0-18.0); Immature Granulocytes # (auto) 0.02 K/uL (0.00-0.02); Immature Granulocytes % (auto) 0.3 %; Lymphocytes # (auto) 0.65 K/uL (1.2-3.4); Mean Corpuscular Hemoglobin 29.7 pg (25-34); Mean Corpuscular Hgb Conc 33.2 g/dL (32-36); Mean Corpuscular Volume 89.4 fL (80-100); Monocytes # (auto) 0.47 K/uL (0.11-0.59); Monocytes % (auto) 7.3 %; Neutrophils # (auto) 5.14 K/uL (1.4-6.5); Neutrophils % (auto) 79.4 %; Platelet Count 141 K/uL (130-400); RDW Coefficient of Variation 14.1 % (11.5-14.5); RDW Standard Deviation 46.3 fL (36.4-46.3); Red Blood Count 4.07 M/uL (4.7-6.1); White Blood Count 6.47 K/uL (4.8-10.8)
[2020-09-11 07:51] LABS: BUN Creatinine Ratio 35.8 (10-20); Calcium 8.3 mg/dl (8.5-10.1); Creatinine Clr Calc Pharmacy 77.4 ml/min; Est GFR (African American) 103.3; Est GFR (Non-African American) 89.1; Potassium 3.7 mmol/L (3.5-5.1)
--- NOTE | 2020-09-11 09:05 | Orthopedic Progress Note ---
Date of Service September 11, 2020 Assessment & Plan (1) Fracture of right hip: POD 3 s/p Right Bipolar Hemiarthroplasty PT/OT protocols. WBAT DVT prophylaxis - ASA bid, SCD's Pain management as written. DC planning - Ok for dc to [facility] per Ortho. Transfer when ok with Med Service. Ortho will sign off at this time. Instructions placed in DC section. Please call with any questions. Admission and Anticipated Discharge Date Admission Date: September 07, 2020 Subjective POD 3 Pt sitting up in bed eating breakfast. No complaints. Pain controlled. Physical Exam Physical Exam: Cindi dressing intact. Calves soft,NT. NV intact. Leg lengths appear equal. Results & Data ([facility]) Vital Signs (Past 12 Hours) Vital Signs Temp Pulse Resp BP Pulse Ox 09/11/20 07:30 37.1 C 90 16 152/61 H 94 09/10/20 23:16 37.3 C 86 18 145/84 H 94 Laboratory Results Laboratory Results WBC 6.47 K/uL (4.8-10.8) 09/11/20 06:45 RBC 4.07 M/uL (4.7-6.1) L 09/11/20 06:45 Hgb 12.1 g/dL (14.0-18.0) L 09/11/20 06:45 Hct 36.4 % (42-52) L 09/11/20 06:45 MCV 89.4 fL (80-100) 09/11/20 06:45 MCH 29.7 pg (25-34) 09/11/20 06:45 MCHC 33.2 g/dL (32-36) 09/11/20 06:45 RDW Std Deviation 46.3 fL (36.4-46.3) 09/11/20 06:45 RDW Coeff of Kayley 14.1 % (11.5-14.5) 09/11/20 06:45 Plt Count 141 K/uL (130-400) 09/11/20 06:45 MPV 10.0 fL (7.4-10.4) 09/11/20 06:45 Immature Gran % (Auto) 0.3 % 09/11/20 06:45 Neut % (Auto) 79.4 % 09/11/20 06:45 Lymph % (Auto) 10.0 % 09/11/20 06:45 [place] % (Auto) 7.3 % 09/11/20 06:45 Eos % (Auto) 2.8 % 09/11/20 06:45 Baso % (Auto) 0.2 % 09/11/20 06:45 Neut # (Auto) 5.14 K/uL (1.4-6.5) 09/11/20 06:45 Lymph # (Auto) 0.65 K/uL (1.2-3.4) L 09/11/20 06:45 [place] # (Auto) 0.47 K/uL (0.11-0.59) 09/11/20 06:45 Eos # (Auto) 0.18 K/uL (0-0.5) 09/11/20 06:45 Baso # (Auto) 0.01 K/uL (0-0.2) 09/11/20 06:45 Immature Gran # (Auto) 0.02 K/uL (0.00-0.02) 09/11/20 06:45 PT 10.9 Seconds (9.0-12.0) 09/07/20 19:24 INR 1.0 (0.9-1.1) 09/07/20 19:24 APTT 29.1 Seconds (21.0-31.0) 09/07/20 19:24 PTT Ratio 1.0 09/07/20 19:24 Sodium 141 mmol/L (136-145) 09/11/20 06:45 Potassium 3.7 mmol/L (3.5-5.1) D 09/11/20 06:45 Chloride 110 mmol/L (98-107) H 09/11/20 06:45 Carbon Dioxide 26 mmol/L (21-32) 09/11/20 06:45 Anion Gap 5.0 (3-11) 09/11/20 06:45 BUN 27 mg/dl (7-18) H 09/11/20 06:45 Creatinine 0.75 mg/dl (0.6-1.4) 09/11/20 06:45 Est Cr Clr Drug Dosing 77.4 ml/min 09/11/20 06:45 Est GFR ( Amer) 103.3 09/11/20 06:45 Est GFR (Non-Af Amer) 89.1 09/11/20 06:45 BUN/Creatinine Ratio 35.8 (10-20) H 09/11/20 06:45 Glucose 98 mg/dl (70-99) 09/11/20 06:45 POC Glucose 108 mg/dl (70-99) H 09/09/20 17:03 Calcium 8.3 mg/dl (8.5-10.1) L 09/11/20 06:45 Magnesium 2.2 mg/dl (1.8-2.4) 09/08/20 06:28 Urine Color Yellow 09/07/20 22:55 Urine Appearance Cloudy (Clear) A 09/07/20 22:55 Urine pH 6.5 (4.5-7.5) 09/07/20 22:55 Ur Specific [place] 1.019 (1.000-1.030) 09/07/20 22:55 Urine Protein Trace (Negative) H 09/07/20 22:55 Urine Glucose (UA) Negative (Negative) 09/07/20 22:55 Urine Ketones Negative (Negative) 09/07/20 22:55 Urine Blood Trace (Negative) H 09/07/20 22:55 Urine Nitrite Negative (Negative) 09/07/20 22:55 Urine Bilirubin Negative (Negative) 09/07/20 22:55 Urine Urobilinogen Negative (Negative) 09/07/20 22:55 Ur Leukocyte Esterase 3+ (Negative) H 09/07/20 22:55 Urine WBC (Auto) >30 /hpf (0-5) H 09/07/20 22:55 Urine RBC (Auto) 5-10 /hpf (0-4) H 09/07/20 22:55 U Hyaline Cast (Auto) 1-5 /lpf (0-5) 09/07/20 22:55 U Epithel Cells (Auto) 20-30 /lpf (0-5) H 09/07/20 22:55 Urine Bacteria (Auto) 3+ (Negative) H 09/07/20 22:55 COVID-19 Eval Order Covid19 IDNow [facility] 09/07/20 22:51 SARS-CoV-2, RNA, NAAT NEGATIVE (NEGATIVE) 09/07/20 22:51 Blood Type B Positive 09/07/20 19:24 Blood Type Recheck B Positive 09/08/20 06:28 Antibody Screen NEGATIVE 09/07/20 19:24 Crossmatch See Detail 09/07/20 19:24 (1) Fracture of right hip Encounter type: initial encounter Fracture type: closed Qualified Code(s): S72.001A - Fracture of unspecified part of neck of right femur, initial encounter for closed fracture
[2020-09-11] MEDS: amLODIPine BESYLATE 5 MG TAB PO SCH (09:58)
[2020-09-11] MEDS: AMOXICILLIN 500 MG CAP PO SCH (09:59)
[2020-09-11] MEDS: FERROUS GLUCONATE 324 MG TAB PO SCH (09:59)
[2020-09-11] MEDS: CARBIDOPA/LEVODOPA 25/100MG TAB PO SCH ×2 (09:59→14:07)
[2020-09-11] MEDS: ASPIRIN 81 MG ECTAB PO SCH (09:59)
[2020-09-11] MEDS: AMANTADINE HCL 100 MG CAPSULE PO SCH (09:59)
[2020-09-11] MEDS: MULTIVITAMIN TAB PO SCH (09:59)
[2020-09-11] MEDS: DOCUSATE SODIUM 100 MG CAP PO SCH (10:00)
--- NOTE | 2020-09-11 12:15 | Hospitalist Progress Note ---
Date of Service September 11, 2020 Assessment & Plan (1) Fracture of right hip: Patient is a 74 yr male who presents for evaluation of right hip pain after sustaining a mechanical fal. Right hip fracture Patient denies head trauma Status post right bipolar hemiarthroplasty on 09/08/2020 Appreciate Orthopedics input and recommendation PT/OT is ongoing Bowel regimen to prevent constipation Monitor for Pot op anemia Likely to need rehab placement-medically stable to be discharged Remains stable and will be discharged to [facility] this afternoon Parkinson's Disease Continue amantadine, carbidopa/levodopa No significant symptoms Hypertension. BP elevated likely situational due to pain Continue amlodipine Monitor [id number] H/O Urinary retention BPH Follows with Urology as outpatient H/O COVID Diagnosed on 06/04/2020 Stable COVID Screen on 09/07/20:Negative H/O Inguinal hernia Followed with Surgery Dementia Reorient frequently to minimize delirium Monitor DVT Px: SCDs for now Re: Surgery planned CODE STATUS: DNR/DNI Disposition He will be discharged to [facility] this afternoon Admission and Anticipated Discharge Date Admission Date: September 07, 2020 Subjective 09/09/2020 The patient was seen and examined in medical floor He is status post right bipolar hemiarthroplasty on 09/08/2020 following a mechan ical fall at home Remains weak and lethargic Denies any significant symptoms 09/10/2020 The patient was seen and examined in the medical floor He is POD #2 status post right bipolar hemiarthroplasty Has been feeling much better today but remains generally weak Has been getting PT and OT 09/11/2020 The patient was seen and examined in medical floor He remains stable Complains of weakness but denies any other symptoms Review of Systems Review of Systems: All systems reviewed and are unremarkable except as noted below Neurologic: + generalized weakness Physical Exam Physical Exam: Sitting on a chair without any acute distress Constitutional: well developed, well nourished and + ill appearing Eyes: PERRL, conjunctivae normal, anicteric sclerae ENMT: external ear and nose normal, oropharynx normal Neck: trachea midline, no thyromegaly Respiratory: no respiratory distress Auscultation: lungs clear to auscultation bilaterally Cardiovascular: Rate/Rhythm: regular rate and regular rhythm Heart Sounds: no murmur Extremities: + edema (Trace edema bilaterally) Gastrointestinal (Abdomen): Inspection/Auscultation: normal bowel sounds; abdomen not distended Percussion/Palpation: abdomen soft; abdomen nontender Musculoskeletal: Hip: + limited ROM of hip (Right hip with pain) Neurologic: Alert and awake. Generally weak. Moves all extremities Psychiatric: A+Ox3, euthymic affect Lymphatic: no cervical or axillary lymphadenopathy Results & Data Results & Data ([facility]) Vital Signs (Past 12 Hours) Vital Signs Temp Pulse Resp BP Pulse Ox 09/11/20 07:30 37.1 C 90 16 152/61 H 94 Laboratory Results Short CBC 09/11/20 Range/Units 06:45 WBC 6.47 (4.8-10.8) K/uL Hgb 12.1 L (14.0-18.0) g/dL Hct 36.4 L (42-52) % Plt Count 141 (130-400) K/uL BMP 09/11/20 06:45 Sodium 141 Potassium 3.7 D Chloride 110 H Carbon Dioxide 26 BUN 27 H Creatinine 0.75 Glucose 98 Calcium 8.3 L Medications Administered Current Inpatient Medications Acetaminophen (Acetaminophen 325 Mg Tab) 650 mg PO Q4H PRN PRN Reason: pain/fever Stop: 10/08/20 00:42 Last Admin: 09/09/20 09:15 Dose: 650 mg Documented by: Amantadine HCl (Amantadine Hcl 100 Mg Capsule) 100 mg PO BID [facility] Stop: 10/08/20 08:59 Last Admin: 09/11/20 09:59 Dose: 100 mg Documented by: Amlodipine Besylate (Amlodipine Besylate 5 Mg Tab) 2.5 mg PO DAILY [facility] Stop: 10/08/20 08:59 Last Admin: 09/11/20 09:58 Dose: 2.5 mg Documented by: Amoxicillin (Amoxicillin 500 Mg Cap) 500 mg PO Q12 [facility] Stop: 09/15/20 12:29 Last Admin: 09/11/20 09:59 Dose: 500 mg Documented by: Aspirin (Aspirin 81 Mg Ectab) 81 mg PO BID [facility] Stop: 10/08/20 20:59 Last Admin: 09/11/20 09:59 Dose: 81 mg Documented by: Bisacodyl (Bisacodyl 10 Mg Supp) 10 mg UT DAILY PRN PRN Reason: Constipation Stop: 10/08/20 16:31 Carbidopa/Levodopa (Carbidopa/Levodopa 25/100mg Tab) 1 tab PO QID [facility] Stop: 10/08/20 08:59 Last Admin: 09/11/20 09:59 Dose: 1 tab Documented by: Diphenhydramine HCl (Diphenhydramine Capsule 25 Mg Cap) 25 mg PO Q6H PRN PRN Reason: Allergy Symptoms Stop: 10/08/20 00:53 Docusate Sodium (Docusate Sodium 100 Mg Cap) 100 mg PO DAILY PRN PRN Reason: Constipation Stop: 10/08/20 00:42 Docusate Sodium (Docusate Sodium 100 Mg Cap) 100 mg PO BID [facility] Stop: 10/08/20 20:59 Last Admin: 09/11/20 10:00 Dose: 100 mg Documented by: Ferrous Gluconate (Ferrous Gluconate 324 Mg Tab) 324 mg PO BIDM [facility] Stop: 10/08/20 16:59 Last Admin: 09/11/20 09:59 Dose: 324 mg Documented by: Magnesium Hydroxide (Magnesium Hydroxide Susp 30 Ml Udc) 30 ml PO Q6H PRN PRN Reason: Constipation Stop: 10/08/20 16:31 Morphine Sulfate (Morphine Sulfate 2 Mg/Ml Carp) 2 mg IV Q3H PRN PRN Reason: Pain Stop: 09/22/20 00:42 Last Admin: 09/08/20 01:10 Dose: 2 mg Documented by: Multivitamins (Multivitamin Tab) 1 tab PO QAM [facility] Stop: 10/09/20 08:59 Last Admin: 09/11/20 09:59 Dose: 1 tab Documented by: Naloxone HCl (Naloxone Hcl 0.4 Mg/1 Ml Vial/Carp) 0.1 mg IV Q5M PRN PRN Reason: Oversedation/Resp Depression Stop: 10/08/20 16:31 Nystatin (Nystatin Cr 15 Gm Tube) 1 appln EXT BID PRN PRN Reason: Rash Stop: 10/08/20 00:42 Ondansetron HCl (Ondansetron Inj 2 Mg/Ml 2 Ml Vial) 4 mg IV Q6H PRN PRN Reason: Nausea Stop: 10/08/20 00:42 Polyethylene Glycol (Polyethylene (Miralax) 17 Gm Pack) 17 gm PO DAILY PRN PRN Reason: Constipation Stop: 10/08/20 00:42 Sennosides (Senna 8.6 Mg Tab) 17.2 mg PO HS [facility] Stop: 10/08/20 20:59 Last Admin: 09/10/20 20:04 Dose: 17.2 mg Documented by: Tramadol HCl (Tramadol Hcl 50 Mg Tablet) 50 mg PO Q4H PRN PRN Reason: Pain Stop: 10/09/20 08:27 (1) Fracture of right hip Encounter type: initial encounter Fracture type: closed Qualified Code(s): S72.001A - Fracture of unspecified part of neck of right femur, initial encounter for closed fracture
--- NOTE | 2020-09-12 07:16 | Discharge Summary ---
Date of Service September 12, 2020 Admission HPI Per Admitting Provider DICTATED BY: Anatoliy Blue MD DATE OF ADMISSION: 09/07/2020 CHIEF COMPLAINT: Status post fall, right hip fracture. HISTORY OF PRESENT ILLNESS: A 74-year-old male with past medical history significant for BPH, history of urinary retention, was on Ulrich, currently Ulrich removed, history of Parkinson disease, history of sensorineural hearing loss bilaterally, mild cognitive impairment, history of elevated bilirubin, history of liver cyst, who was diagnosed with COVID on 05/25/2020 and finally discharged and admitted back on 06/21/2020 with Pseudomonas UTI, metabolic encephalopathy and ANGE. During his hospitalization, his imaging studies showed right inguinal hernia for which he followed with surgery and currently under observation, and also has liver cyst and supposed to get liver MRI, follows with GI. He is at the [facility]. Today, presents with fall. The patient says he is ambulating without any help. He had a misstep and fell today on the right side and has had right hip pain. No loss of conscious, no injury to his head and could not bear any weight and was brought here and found to have right hip fracture. Currently resting comfortably and hemodynamically stable. The patient is somewhat hard to hear, but alert and oriented, able to answer all the questions. Denies any chest pain. Denies any shortness of breath, no cough, no fevers, no headache, no blurred vision, no earache, no runny nose, no sore throat, no loss of sense of smell or taste. Appetite is okay, says he is supposed to eat only soft diet and swallowing okay. Denies any nausea. He says since his Ulrich was removed, he is mostly incontinent of his urine. Stools are okay, sometimes he has to use stool softeners. No swelling in the legs. Admission Exam Per Admitting Provider GENERAL: The patient is of moderate build, not in acute distress. VITAL SIGNS: Temperature 36.9, pulse 67, respiratory rate 19, blood pressure 157/92, oxygen 94% room air. HEENT: Pupils equal, round, reactive to light. Oral mucosa moist. NECK: No neck masses. No JVD. CARDIOVASCULAR: S1, S2, regular rate and rhythm, no murmur, no gallop. RESPIRATORY SYSTEM: Normal AP diameter. No accessory muscle use. No wheezing, no crackles. ABDOMEN: Soft, bowel sounds present, nontender. No distention. CENTRAL NERVOUS SYSTEM: Cranial nerves II-XII grossly intact, nonfocal. EXTREMITIES: Right lower extremity is slightly externally rotated. No edema, no erythema seen. Principal Diagnosis Fracture of the right hip S post right bipolar hemiarthroplasty on 09/08/2020, Parkinson's disease, hypertension, dementia Discharge Exam Constitutional well developed, well nourished and + ill appearing Eyes PERRL, conjunctivae normal, anicteric sclerae ENMT external ear and nose normal, oropharynx normal Neck trachea midline, no thyromegaly Respiratory no respiratory distress Auscultation: lungs clear to auscultation bilaterally Cardiovascular Rate/Rhythm: regular rate and regular rhythm Heart Sounds: no murmur Extremities: + edema (Trace edema bilaterally) Gastrointestinal (Abdomen) Inspection/Auscultation: normal bowel sounds; abdomen not distended Percussion/Palpation: abdomen soft; abdomen nontender Musculoskeletal Hip: + limited ROM of hip (Right hip with pain) Psychiatric A+Ox3, euthymic affect Lymphatic no cervical or axillary lymphadenopathy Discharge Data Allergies Allergy/AdvReac Type Severity Reaction Status Date / Time No Known Allergies Allergy Verified 09/07/20 19:22 Consultations 09/07/20 21:16 ED Decision to Admit Stat 09/08/20 00:43 Consult Case Management - Discharge Planning Routine 09/08/20 08:00 Consult Orthopedic Surgery Routine Procedures Performed Operation Date: 09/08/20 10:30 Actual Procedures p Right Bipolar Hip Fracture(Right) - Geovanny John DO Hospital Course (1) Fracture of right hip: Patient is a 74 yr male who presents for evaluation of right hip pain after sustaining a mechanical fal. Right hip fracture Patient denies head trauma Status post right bipolar hemiarthroplasty on 09/08/2020 Appreciate Orthopedics input and recommendation PT/OT is ongoing Bowel regimen to prevent constipation Monitor for Pot op anemia Likely to need rehab placement-medically stable to be discharged Remains stable and will be discharged to [facility] this afternoon Parkinson's Disease Continue amantadine, carbidopa/levodopa No significant symptoms Hypertension. BP elevated likely situational due to pain Continue amlodipine Monitor [id number] H/O Urinary retention BPH Follows with Urology as outpatient H/O COVID Diagnosed on 06/04/2020 Stable COVID Screen on 09/07/20:Negative H/O Inguinal hernia Followed with Surgery Dementia Reorient frequently to minimize delirium Monitor DVT Px: SCDs for now Re: Surgery planned CODE STATUS: DNR/DNI Disposition He will be discharged to [facility] this afternoon Total Time Total Time Spent Total Time Spent (In Minutes): 35 minutes Total Time Includes: Examination of the Patient, Discharge Planning, Medication Reconciliation and Communication With Other Providers Discharge Plan Discharge Items Patient Disposition: Transfer Inpatient Rehab Fac Reason For Visit: FALL Discharge Diagnosis: Fracture of the right hip S post right bipolar hemiarthroplasty on 09/08/2020, Parkinson's disease, hypertension, dementia Condition on Discharge: Good Activity: Per Instructions section Weightbearing: Right weightbearing Weightbearing Comment: as tolerated with walker Non-emergency contact: Surgeon Call non-emergency contact if: your pain is not controlled, your temperature is above 101.5, your wound has increased redness and your wound has increased drainage Follow-up/Referrals: Geovanny John DO [Surgeon] - (follow up in 10-14 days from day of surgery. ) [facility] [Primary Care Provider] - Cassandra Miller CRNP [Nurse Practitioner] - (Follow up in 6 weeks for osteoporosis check up) Diet: Heart Healthy Diet Comment: Minced and moist Addtl Attending Provider Instructions: Please take precaution to avoid falls [place] Receptionist Provider Instructions: ACTIVITY RECOMMENDATIONS: SELF CARE INSTRUCTIONS AFTER HIP HEMIARTHROPLASTY Until the incision and soft tissues around your hip have healed, there is a possibility that the hip prosthesis could dislocate. A. Observe the following precautions to prevent dislocation: 1. Don't bend your hip greater than 90 degrees. 2. Avoid crossing your legs or ankles while standing or lying. 3. Sit with your feet placed 6 inches apart. 4. When sitting, keep your knees below your hips. Sit on a firm surface, avoid deep, soft chairs and couches. Use an elevated toilet seat in the bathroom. 5. Don't bend over at the waist. Use a long handled shoehorn and a sock aid to help you put on your shoes and socks. A hand sprayer can help you fern picker objects that are too high or too low to reach. 6. Keep car riding to a minimum for at least one month after surgery. B. Your balance may be shaky for a while. Use crutches or a walker until directed by your doctor. C. Use hand rails when walking on stairs. D. Wear low heeled shoes with non-slip soles. E. Be sure that your floors are free of things that could trip you - throw rugs, electrical cords, small objects. Avoid wet and waxed floors, especially with crutches and canes. F. Try to walk several times a day with rest periods between. G. Continue with all the exercises taught to you in the hospital. Again, make walking a part of your daily routine. SPECIAL CARE INSTRUCTIONS: VERY IMPORTANT TO READ AND REVIEW A. You may still be at risk for phlebitis and blood clots. 1. Wear surgical stockings (KAMILAH hose) for 2 weeks after surgery to improve circulation and reduce swelling. 2. Take Aspirin 81mg twice daily for 4 weeks or as directed by your doctor. This is your blood thinner. B. You must take antibiotics before having dental work, bladder, bowel and other surgery. Your doctor will provide you with a permanent card to carry describing precautions. C. Call [facility] if you have a fever, redness or swelling around the incision, cloudy drainage from incision, or sudden increase in pain in your hip, not relieved by your regular pain medication. D. Please call the office at if you have any concerns or questions about your operation or recovery. * YOU MAY SHOWER, NO TUB BATHS UNTIL CLEARED BY YOUR DOCTOR. * WEAR KAMILAH HOSE 20 HOURS PER DAY FOR 2 WEEKS. * YOU SHOULD USE A WALKER OR CRUTCHES FOR 2-4 WEEKS. THIS WILL HELP PREVENT STRAIN ON YOUR HIP MUSCLE AND ALLOW IT TO HEAL PROPERLY. YOU MAY WEAN TO A CANE TOLERATED. * MOST PATIENTS WILL HAVE HOME NURSING FOR THERAPY. IF YOU DECIDE TO DO OUTPATIENT PHYSICAL THERAPY, PLEASE SCHEDULE THIS 3 TIMES PER WEEK. ALEX Dressing * - This is a large suction dressing covering your incision. This will help pull any excess drainage from the wound and allow your incision to heal properly. You may shower with this if you can keep the unit outside of the shower. If any bleeding or leakage is noted please call your doctor's office. This will remain on your incision for 7 days and then should be removed. This can be done yourself or by the home nursing staff if applicable. The entire unit is disposable once removed. Once removed, keep incision clean and dry. If redness or drainage is noted, please call your surgeon. . FOLLOW UP VISIT: If appointment is not already scheduled: Please call [facility] to make a follow-up appointment for 2 weeks after your surgery at . Pending Studies at Discharge: No Stand-Alone Forms: My [facility] Skilled Items Patient informed of condition?: Yes DNR: Yes Discharge Level of Care: Acute rehab Communicable Disease: No Lines: None Urinary Catheter: Yes Medications and DC Order Prescriptions: New amoxicillin 500 mg Capsule 500 mg PO Q12 3 Days Qty: 6 RF: 0 aspirin 81 mg Tablet,Delayed Release (Dr/Ec) 81 mg PO BID 30 Days Qty: 60 RF: 0 tramadol 50 mg Tablet 50 mg PO Q4H PRN (Reason: pain) 5 Days Qty: 20 RF: 0 ferrous gluconate 324 mg (38 mg iron) Tablet 324 mg PO BIDM 30 Days Qty: 60 RF: 0 Continued amlodipine 2.5 mg tablet 2.5 mg PO DAILY RF: 0 amantadine HCl 100 mg capsule 100 mg PO BID Qty: 60 RF: 5 carbidopa-levodopa 25-100 mg tablet 1 tab PO QID RF: 0 acetaminophen 325 mg capsule 650 mg PO Q4H MDD 3 GMS APAP/24 HOURS PRN (Reason: Fever Or Pain) RF: 0 nystatin 100,000 unit/gram Cream 1 applic TOPICAL BID PRN (Reason: Rash) RF: 0 diphenhydramine HCl [Banophen] 25 mg Tablet 25 mg PO Q6H PRN (Reason: Allergy Symptoms) RF: 0 docusate sodium 100 mg capsule 100 mg PO DAILY PRN (Reason: Constipation) RF: 0 carbamide peroxide [Ear Wax Drops] 6.5 % Drops 5 drp OTIC (EAR) Q12H PRN (Reason: Ear Wax Removal) RF: 0 Discharge Orders: Discharge Order (Routine); Ordered 09/11/20 Ordered By: Rebekah Godfrey Admission Data Admit Date/Time: 09/07/20 22:06 Attending Provider: Rebekah Godfrey Admit Provider: Anatoliy Blue Primary Care Provider: [facility], [facility] Other Providers: [facility] ; Anatoliy Blue ; Geovanny John ; Drake Valdivia Other Interventions: Discharge Summary Assessment (RN) Last Done: 09/11/20 15:01
== END 2020-09-11 15:15 | DRG 522 ==
LOC: ED 18:30 → SUATTDRO 22:06 → 3N 22:06

== ENCOUNTER 2020-10-08 20:51 | Inpatient (IN) ==
[2020-10-08] MEDS ORDERED: SODIUM CHLORIDE 0.9% 1000ML 1,000 ML IV ONE (21:12)
[2020-10-08] MEDS ORDERED: cefTRIAXone SODIUM 1,000 MG/50 ML BAG IV STA (21:12)
--- NOTE | 2020-10-08 21:12 | Emergency Department Note ---
Impression & Plan Fever, Acute UTI, Acute confusion ED Provider Note NAME: NAHEED BOWIE AGE: 75 SEX: M : 1945 ARRIVES VIA: Ambulance INFORMANT: Patient ED PROVIDER(S): Bernard Fitch DO CHIEF COMPLAINT: fever, AMS HPI: Patient is a 75-year-old gentleman who presents the ER for confusion associated with a fever. He was recently admitted and discharged following right hip fracture back the end of August. He was diagnosed with UTI 3 days ago. He has not received any antibiotics. They note that he has been hallucinating and confused recently. He was brought in by EMS. Fever was 101 prior to arrival and he was given Tylenol. He denies any headache or change in vision. No chest pain or shortness of breath. No nausea, vomiting, or diarrhea. Denies any belly pain or back pain. No dysuria, urgency or frequency. No other exacerbating or remitting factors. ROS: See above HPI for pertinent positives & negatives. A total of 10 systems reviewed and were otherwise negative. PAST MEDICAL HISTORY:See Below PAST SURGICAL HISTORY:See Below FAMILY HISTORY:See Below SOCIAL HISTORY:See Below HOME MEDICATIONS:See Below ALLERGIES:See Below VITALS:See Below PHYSICAL EXAMINATION: GENERAL: Sitting up in bed, alert, ill-appearing, disheveled EYE EXAM: normal conjunctiva. PERRL and EOM's intact. OROPHARYNX: mask in place NECK: supple, no nuchal rigidity, no adenopathy, non-tender LUNGS: Clear to auscultation. Normal chest wall mechanics HEART: no murmurs, S1 normal and S2 normal ABDOMEN: abdomen soft, non-tender, normo-active bowel sounds, no masses, no rebound or guarding. UPPER EXTREMITIES: upper extremities are grossly normal. LOWER EXTREMITIES: Incision is well-healed over the right hip and is clean and dry. No redness. NEURO EXAM: Normal sensorium, cranial nerves II-XII grossly intact, normal speech, no weakness of arms, no weakness of legs. MEDICAL DECISION MAKING: Patient is a 75-year-old male who presents to the ER for confusion and fever. He had a fever of 101 today. They note that he was confused off of his ba seline. He was found to have a UTI 3 days ago but was never treated as no antibiotics were ever ordered. IV was established blood work was obtained. Labs show no significant leukocytosis or anemia. BMP with a slightly elevated chloride. LFTs and bilirubin were unremarkable. Lactic acid was normal. Lipase was normal. UA with nitrates leuks whites bacteria although contaminated with epithelial cells. Covid was negative. CT head was unremarkable. CT abdomen pelvis showed a fair amount of chronic pathology with diffuse bladder wall thickening multiple bladder calculi as well as a 4.9 cm lateral right subcutaneous fluid collection of uncertain etiology. He has no pain over this. There is no signs of infection. He has a clear source of UTI and patient was given IV fluids and Rocephin. He was updated bedside. Discussed with hospitalist for further evaluation. Triage Nursing notes reviewed. Limited review of prior medical records performed Vital Signs: reviewed and remarkable for no significant abnormalities Differential diagnosis: Differential diagnosis: Etiologies such as viral syndrome, otitis, pharyngitis, pneumonia, influenza, meningitis, urinary tract infection, sepsis, bacteremia, as well as others were entertained. ER treatment provided: See below Diagnostics interpreted by me: ECG: none Cardiac Monitoring: An order was placed for continuous cardiac monitoring. The monitor shows a rate of 52 with sinus rhythm. Laboratory studies: As stated above and show below. Imaging studies: CT of the head was unremarkable CT abdomen pelvis as discussed above in MDM Consultation(s): none Procedures: none Critical Care: None Past Med/Surg History Medical History (Updated 10/08/20 @ 23:24 by Bernard Fitch DO) Acute renal failure hx 10/2018 Bilateral hydronephrosis BPH (benign prostatic hyperplasia) Bradycardia Ulrich catheter in place MVP (mitral valve prolapse) Moderate prolapse of the posterior mitral valve leaflet per 04/2019 ECHO Parkinson disease with cognitive impairment Tremor Surgical History History of prostate surgery History of testicular surgery 06/2019. General anesthesia. 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 Beliefs That Will Affect Care: None marital status: Single Current Living Situation: Personal Care Facility Current Living Situation Comment: [facility] current occupational status: retired How many Children do You have: 0 Feels Safe at Home: Yes Assistive Devices: Walker Allergies Allergies Allergy/AdvReac Type Severity Reaction Status Date / Time No Known Allergies Allergy Verified 10/08/20 21:40 Home Meds Home Medications Medication Instructions Recorded Confirmed diphenhydramine HCl [Banophen] 25 mg PO Q6H PRN 12/04/18 10/08/20 nystatin 1 applic TOPICAL BID PRN 12/04/18 10/08/20 carbamide peroxide [Ear Wax Drops] 5 drp OTIC (EAR) Q12H PRN 02/13/19 10/08/20 docusate sodium 100 mg PO BID 02/13/19 10/08/20 acetaminophen 325 mg capsule 650 mg PO Q4H PRN cap MDD 3 GMS 06/02/19 10/08/20 APAP/24 HOURS carbidopa 25 mg-levodopa 100 mg 1 tab PO QID 06/15/19 10/08/20 tablet amlodipine 2.5 mg tablet 2.5 mg PO DAILY 10/14/19 10/08/20 cholecalciferol (vitamin D3) 50 mcg PO DAILY 10/08/20 10/08/20 [Vitamin D3] food supplemt, lactose-reduced 1 ea PO BIDM 10/08/20 10/08/20 [Ensure] Previous Rx's Medication Instructions Recorded amantadine HCl 100 mg capsule 100 mg PO BID #60 cap 10/14/19 aspirin 81 mg PO BID 30 Days #60 tab 09/11/20 ferrous gluconate 324 mg PO BIDM 30 Days #60 tab 09/11/20 Results & Data (ED) Vital Signs Vital Signs - 24 hr 10/08/20 21:00 10/08/20 21:05 10/08/20 21:34 Temperature 37.0 C Temperature Source Oral Pulse Rate 49 L 50 L 48 L Pulse Rate from SpO2 Sensor 49 L 49 L Respiratory Rate 21 Blood Pressure 152/75 H 172/79 H 158/80 H Blood Pressure Mean 100 110 106 Pulse Oximetry 96 96 95 Oxygen Delivery Method Room Air Room Air Room Air Sepsis Recent Fever Within 48 Hours Yes Sepsis New/Unexplained Change in Mental Status N/A Sepsis Action Taken by Nursing No Action Required 10/08/20 22:21 10/08/20 22:30 10/08/20 23:00 Temperature Temperature Source Pulse Rate 46 L 48 L 43 L Pulse Rate from SpO2 Sensor 46 L 48 L 44 L Respiratory Rate 19 Blood Pressure 170/82 H 161/81 H 162/82 H Blood Pressure Mean 111 107 108 Pulse Oximetry 96 96 98 Oxygen Delivery Method Room Air Room Air Room Air Sepsis Recent Fever Within 48 Hours Sepsis New/Unexplained Change in Mental Status Sepsis Action Taken by Nursing Laboratory Data Result diagrams: 10/08/20 21:16 10/08/20 21:16 Lab Results 10/08/20 10/08/20 10/08/20 Range/Units 21:03 21:16 21:16 WBC 5.65 (4.8-10.8) K/uL RBC 4.35 L (4.7-6.1) M/uL Hgb 12.9 L (14.0-18.0) g/dL Hct 39.7 L (42-52) % MCV 91.3 (80-100) fL MCH 29.7 (25-34) pg MCHC 32.5 (32-36) g/dL RDW Std Deviation 49.2 H (36.4-46.3) fL RDW Coeff of Kayley 14.5 (11.5-14.5) % Plt Count 172 (130-400) K/uL MPV 10.1 (7.4-10.4) fL Immature Gran % (Auto) 0.2 % Neut % (Auto) 69.2 % Lymph % (Auto) 18.9 % [place] % (Auto) 7.1 % Eos % (Auto) 4.2 % Baso % (Auto) 0.4 % Neut # (Auto) 3.91 (1.4-6.5) K/uL Lymph # (Auto) 1.07 L (1.2-3.4) K/uL [place] # (Auto) 0.40 (0.11-0.59) K/uL Eos # (Auto) 0.24 (0-0.5) K/uL Baso # (Auto) 0.02 (0-0.2) K/uL Immature Gran # (Auto) 0.01 (0.00-0.02) K/uL Sodium (136-145) mmol/L Potassium (3.5-5.1) mmol/L Chloride (98-107) mmol/L Carbon Dioxide (21-32) mmol/L Anion Gap (3-11) BUN (7-18) mg/dl Creatinine (0.6-1.4) mg/dl Est Cr Clr Drug Dosing ml/min Est GFR ( Amer) Est GFR (Non-Af Amer) BUN/Creatinine Ratio (10-20) Glucose (70-99) mg/dl Lactate 1.5 (0.4-2.0) mmol/L Calcium (8.5-10.1) mg/dl Total Bilirubin (0.2-1) mg/dl AST (15-37) U/L ALT (12-78) U/L Alkaline Phosphatase (45-117) U/L Total Protein (6.4-8.2) gm/dl Albumin (3.4-5.0) gm/dl Globulin (2.5-4.0) gm/dl Albumin/Globulin Ratio (0.9-2) Lipase (73-393) U/L Urine Color Yellow Urine Appearance Turbid A (Clear) Urine pH 5.5 (4.5-7.5) Ur Specific [place] 1.021 (1.000-1.030) Urine Protein Trace H (Negative) Urine Glucose (UA) Negative (Negative) Urine Ketones Trace H (Negative) Urine Blood 1+ H (Negative) Urine Nitrite Positive A (Negative) Urine Bilirubin Negative (Negative) Urine Urobilinogen Negative (Negative) Ur Leukocyte Esterase 3+ H (Negative) Urine WBC (Auto) >30 H (0-5) /hpf Urine RBC (Auto) 0-4 (0-4) /hpf U Hyaline Cast (Auto) 0 (0-5) /lpf U Epithel Cells (Auto) >30 H (0-5) /lpf Urine Bacteria (Auto) 4+ H (Negative) COVID-19 Eval Order SARS-CoV-2, RNA, NAAT (NEGATIVE) 10/08/20 10/08/20 10/08/20 Range/Units 21:16 22:26 22:26 WBC (4.8-10.8) K/uL RBC (4.7-6.1) M/uL Hgb (14.0-18.0) g/dL Hct (42-52) % MCV (80-100) fL MCH (25-34) pg MCHC (32-36) g/dL RDW Std Deviation (36.4-46.3) fL RDW Coeff of Kayley (11.5-14.5) % Plt Count (130-400) K/uL MPV (7.4-10.4) fL Immature Gran % (Auto) % Neut % (Auto) % Lymph % (Auto) % [place] % (Auto) % Eos % (Auto) % Baso % (Auto) % Neut # (Auto) (1.4-6.5) K/uL Lymph # (Auto) (1.2-3.4) K/uL [place] # (Auto) (0.11-0.59) K/uL Eos # (Auto) (0-0.5) K/uL Baso # (Auto) (0-0.2) K/uL Immature Gran # (Auto) (0.00-0.02) K/uL Sodium 143 (136-145) mmol/L Potassium 4.0 (3.5-5.1) mmol/L Chloride 108 H (98-107) mmol/L Carbon Dioxide 29 (21-32) mmol/L Anion Gap 5.0 (3-11) BUN 30 H (7-18) mg/dl Creatinine 0.91 (0.6-1.4) mg/dl Est Cr Clr Drug Dosing 59.1 ml/min Est GFR ( Amer) 93.9 Est GFR (Non-Af Amer) 81.0 BUN/Creatinine Ratio 33.2 H (10-20) Glucose 99 (70-99) mg/dl Lactate (0.4-2.0) mmol/L Calcium 8.8 (8.5-10.1) mg/dl Total Bilirubin 0.5 (0.2-1) mg/dl AST 9 L (15-37) U/L ALT 10 L (12-78) U/L Alkaline Phosphatase 97 (45-117) U/L Total Protein 6.0 L (6.4-8.2) gm/dl Albumin 2.9 L (3.4-5.0) gm/dl Globulin 3.1 (2.5-4.0) gm/dl Albumin/Globulin Ratio 0.9 (0.9-2) Lipase 157 (73-393) U/L Urine Color Urine Appearance (Clear) Urine pH (4.5-7.5) Ur Specific [place] (1.000-1.030) Urine Protein (Negative) Urine Glucose (UA) (Negative) Urine Ketones (Negative) Urine Blood (Negative) Urine Nitrite (Negative) Urine Bilirubin (Negative) Urine Urobilinogen (Negative) Ur Leukocyte Esterase (Negative) Urine WBC (Auto) (0-5) /hpf Urine RBC (Auto) (0-4) /hpf U Hyaline Cast (Auto) (0-5) /lpf U Epithel Cells (Auto) (0-5) /lpf Urine Bacteria (Auto) (Negative) COVID-19 Eval Order Covid19 [facility] SARS-CoV-2, RNA, NAAT NEGATIVE (NEGATIVE) Administered Medications Discontinued Medications Ceftriaxone Sodium (Rocephin) 1,000 mg in 50 mls @ 100 mls/hr IV NOW STA Stop: 10/08/20 21:41 Last Infusion: 10/08/20 22:21 Dose: 0 mls/hr Documented by: [id number] Admin: 10/08/20 21:30 Dose: 100 mls/hr Documented by: [id number] Sodium Chloride (Nss 1000ml) 1,000 mls @ 999 mls/hr IV .Q1H1M ONE Stop: 10/08/20 22:12 Last Infusion: 10/08/20 22:31 Dose: 0 mls/hr Documented by: [id number] Admin: 10/08/20 21:30 Dose: 999 mls/hr Documented by: [id number] Ioversol (Ioversol 100ml) 95 ml IV ONCE ONE Stop: 10/08/20 22:14 Last Admin: 10/08/20 22:14 Dose: 95 ml Documented by: [id number] Discharge Plan Visit Data Chief Complaint: Urinary Symptoms Stated Complaint: UTI, FEVER ED Provider: Bernard Fitch Discharge Problem: Fever, Acute UTI, Acute confusion Forms Stand Alone Forms: My [facility] [employer] Prescriptions Prescriptions: No Action amlodipine 2.5 mg tablet 2.5 mg PO DAILY RF: 0 amantadine HCl 100 mg capsule 100 mg PO BID Qty: 60 RF: 5 carbidopa-levodopa 25-100 mg tablet 1 tab PO QID RF: 0 acetaminophen 325 mg capsule 650 mg PO Q4H MDD 3 GMS APAP/24 HOURS PRN (Reason: Fever Or Pain) RF: 0 nystatin 100,000 unit/gram Cream 1 applic TOPICAL BID PRN (Reason: Rash) RF: 0 diphenhydramine HCl [Banophen] 25 mg Tablet 25 mg PO Q6H PRN (Reason: Allergy Symptoms) RF: 0 docusate sodium 100 mg capsule 100 mg PO BID RF: 0 carbamide peroxide [Ear Wax Drops] 6.5 % Drops 5 drp OTIC (EAR) Q12H PRN (Reason: Ear Wax Removal) RF: 0 aspirin 81 mg Tablet,Delayed Release (Dr/Ec) 81 mg PO BID 30 Days Qty: 60 RF: 0 ferrous gluconate 324 mg (38 mg iron) Tablet 324 mg PO BIDM 30 Days Qty: 60 RF: 0 Ensure Liquid 1 ea PO BIDM RF: 0 cholecalciferol (vitamin D3) [Vitamin D3] 50 mcg (2,000 unit) Capsule 50 mcg PO DAILY RF: 0 Referrals Referrals: [facility], [facility] [Primary Care Provider] - Discharge Problem: Fever Qualifiers: Fever type: unspecified Qualified Code(s): R50.9 - Fever, unspecified
[2020-10-08 21:22] LABS: Appearance Urine Turbid (Clear); Bacteria Urine Automated 4+ (Negative); Bilirubin Urine Negative (Negative); Blood Urine 1+ (Negative); Color Urine Yellow; Epithelial Cell Urine Auto >30 /lpf (0-5); Glucose Urine UA Negative (Negative); Ketones Urine Trace (Negative); Leukocyte Esterase Urine 3+ (Negative); Nitrite Urine Positive (Negative); Protein Urine Trace (Negative); RBC Urine Automated 0-4 /hpf (0-4); Specific Gravity Urine 1.021 (1.000-1.030); Urobilinogen Urine Negative (Negative); WBC Urine Automated >30 /hpf (0-5); pH Urine 5.5 (4.5-7.5)
[2020-10-08 21:24] LABS: Basophils # (auto) 0.02 K/uL (0-0.2); Basophils % (auto) 0.4 %; Eosinophils # (auto) 0.24 K/uL (0-0.5); Eosinophils % (auto) 4.2 %; Hematocrit (blood only) 39.7 % (42-52); Hemoglobin 12.9 g/dL (14.0-18.0); Immature Granulocytes # (auto) 0.01 K/uL (0.00-0.02); Immature Granulocytes % (auto) 0.2 %; Lymphocytes # (auto) 1.07 K/uL (1.2-3.4); Lymphocytes % (auto) 18.9 %; Mean Corpuscular Hemoglobin 29.7 pg (25-34); Mean Corpuscular Hgb Conc 32.5 g/dL (32-36); Mean Corpuscular Volume 91.3 fL (80-100); Mean Platelet Volume 10.1 fL (7.4-10.4); Monocytes % (auto) 7.1 %; Neutrophils # (auto) 3.91 K/uL (1.4-6.5); Neutrophils % (auto) 69.2 %; Platelet Count 172 K/uL (130-400); RDW Coefficient of Variation 14.5 % (11.5-14.5); RDW Standard Deviation 49.2 fL (36.4-46.3); Red Blood Count 4.35 M/uL (4.7-6.1); White Blood Count 5.65 K/uL (4.8-10.8)
[2020-10-08 21:48] LABS: Albumin Level 2.9 gm/dl (3.4-5.0); BUN Creatinine Ratio 33.2 (10-20); Calcium 8.8 mg/dl (8.5-10.1); Creatinine Clr Calc Pharmacy 59.1 ml/min; Est GFR (African American) 93.9
[2020-10-08 21:50] LABS: Albumin Globulin Ratio 0.9 (0.9-2); Bilirubin,Total 0.5 mg/dl (0.2-1); Globulin 3.1 gm/dl (2.5-4.0)
[2020-10-08] MEDS ORDERED: OPTIRAY 320 100ml IV ONE (22:13)
[2020-10-08 22:15] LABS: Cast Urine Automated 0 /lpf (0-5)
[2020-10-09] MEDS ORDERED: ONDANSETRON INJ 2 MG/ML 2 ML VIAL IV PRN (00:44)
[2020-10-09] MEDS ORDERED: NITROGLYCERIN SL 0.4 MG/TAB TAB SL PRN (00:44)
[2020-10-09] MEDS ORDERED: ACETAMINOPHEN 325 MG TAB PO PRN (00:44)
[2020-10-09] MEDS ORDERED: NYSTATIN CR 15 GM TUBE EXT PRN (00:44)
[2020-10-09] MEDS ORDERED: CEFEPIME CONSULT ACTIVE PRN (00:53)
[2020-10-09] MEDS ORDERED: diphenhydrAMINE Capsule 25 MG CAP PO PRN (00:55)
[2020-10-09] MEDS: SODIUM CHLORIDE 0.9% 1000ML 1,000 ML IV SCH ×2 (01:44→12:58)
[2020-10-09] MEDS: CEFEPIME 2,000 MG in SYRINGE 0 ML IV SCH ×2 (01:57→12:58)
--- NOTE | 2020-10-09 02:52 | History and Physical Report ---
DATE OF ADMISSION: 10/09/2020 CHIEF COMPLAINT: Confusion, UTI. HISTORY OF PRESENT ILLNESS: This is a 75-year-old male, [facility] Personal Care resident with past medical history significant for BPH, history of urinary retention, was on Ulrich in the past, currently Ulrich removed, history of Parkinson disease, history of sensorineural hearing loss bilaterally, mild cognitive impairment, history of elevated bilirubin, history of liver cyst, history of COVID diagnosed on 05/25/2020 and was readmitted with pseudomonas UTI, metabolic encephalopathy with an ANGE. Again he was admitted on 09/08/2020 with fall and right hip fracture, status post right bipolar hemiarthroplasty on 09/08/2020 and [facility] and now back at [facility]. Today comes here because of UTI and confusion. As per [facility], he was diagnosed with UTI 2 days ago, but not received antibiotics yet and today was having temperature of 101 degrees and was more confused and was seeing people in the room and they decided to send him to the hospital When he came in, he was having a temperature spike. Currently hemodynamically stable. Closes his eyes, but answers appropriately. Can tell his name, can tell his date of , can tell today's date, but somewhat confused with place , patient thinks he is in [place]. But he was hard of hearing. Denies any headache, denies any neck pain, no chest pain, no shortness of breath, no cough, no abdominal pain, no nausea. His appetite is okay. He said he is eating okay. He is ambulating, somewhat imbalance since his hip fracture. As per nurse, he is on regular diet. ALLERGIES: No known drug allergies. PAST MEDICAL HISTORY: As mentioned above. PAST SURGICAL HISTORY: Dental procedure, status post appendectomy, status post right hip surgery. FAMILY HISTORY: Significant for father had brain cancer and mother had hypertension. SOCIAL HISTORY: Currently living at [facility]. No history of smoking, alcohol, or drug use. MEDICATIONS: The patient is currently on Tylenol 650 mg p.o. q. 4 hours p.r.n., amantadine 100 mg p.o. b.i.d., amlodipine 2.5 mg p.o. daily, aspirin 81 mg p.o. b.i.d., carbidopa/levodopa 25/100 mg 1 tablet p.o. q.i.d., vitamin D 50 mcg p.o. daily, diphenhydramine 25 mg p.o. q. 6 hours p.r.n., Colace 100 mg p.o. b.i.d., ferrous sulfate 325 mg p.o. b.i.d., Ensure 1 can p.o. b.i.d., nystatin topical b.i.d. p.r.n. REVIEW OF SYSTEMS: As per HPI. Rest of the review of systems negative. PHYSICAL EXAMINATION: GENERAL: The patient is of moderate build, not in acute distress. VITAL SIGNS: Temperature 37, pulse 53, respiratory rate 19, blood pressure 159/81, oxygen 97% on room air. HEENT: Pupils equal, round, and reactive to light. Oral mucosa somewhat dry. NECK: No JVD, no neck masses. CARDIOVASCULAR: S1, S2 heard. Bradycardia. No murmurs. RESPIRATORY SYSTEM: Normal AP diameter. No accessory muscle use. No wheezing, no crackles. ABDOMEN: Soft, bowel sounds present, nontender. No distention. CENTRAL NERVOUS SYSTEM: Alert and oriented to name and time. Obeys simple commands. No facial droop. Speech is clear. EXTREMITIES: No edema, no erythema seen. LABORATORY DATA: WBC 5.6, hemoglobin 12.9, hematocrit 39.7, platelets 172. Sodium 143, potassium 4, chloride 108, bicarbonate 29, BUN 30, creatinine 0.9, serum glucose 99, lactate 1.5, calcium 8.8, total bilirubin 0.5, AST 9, ALT 10, alkaline phosphatase 97, lipase 157. Urinalysis positive for nitrite, positive for leukocyte esterase, and +4 bacteria. SARS-CoV-2 RNA negative. IMAGING DATA: CT of the head, preliminary report, no acute findings. Chronic microvascular ischemic changes. CT of the abdomen and pelvis preliminary report, multiple bilateral renal cysts, 10 mm left renal calculus, multiple bladder calculi, markedly enlarged and lobulated prostate gland as before. New right hip prosthesis. [id number] L1 compression fracture deformity. A 4.9 cm lateral right subcutaneous fluid collection overlying the hip prosthesis which may be a postsurgical collection, hematoma or abscess. ASSESSMENT AND PLAN: This is a 75-year-old male who presents with urinary tract infection and confusion. 1. Recurrent urinary tract infection:Confusion. Most likely metabolic encephalopathy secondary to urinary tract infection, history of pseudomonas in the urine. We will place him on IV cefepime. Follow the cultures. Gentle fluids. Monitor in the [facility] tele. 2. History of Parkinson's: Continue use of carbidopa/levodopa. 3. hematoma versus abscess on the CAT scan of the right hip surgical site. We will follow the final CAT scan report. If any issue, we will consult orthopedics. 4. History of hypertension: On amlodipine. We will monitor the blood pressure. 5. Benign prostatic hypertrophy: Needs to follow with urology. 6. History of inguinal hernia: Followed with surgery. 7. Dementia: We will monitor for any delirium. 8. Deep venous thrombosis prophylaxis: Sequential compression devices for now. 9. Disposition: Monitor in the [facility] tele. PT and OT prior to discharge. Social service to help with discharge planning. Discharge back to [facility] when stable. CODE STATUS: DNR/DNI as per discussion with his family, Monty Erwin. ALOK
[2020-10-09 05:55] LABS: Basophils # (auto) 0.03 K/uL (0-0.2); Basophils % (auto) 0.4 %; Eosinophils # (auto) 0.26 K/uL (0-0.5); Eosinophils % (auto) 3.4 %; Hematocrit (blood only) 44.7 % (42-52); Hemoglobin 14.4 g/dL (14.0-18.0); Immature Granulocytes # (auto) 0.01 K/uL (0.00-0.02); Immature Granulocytes % (auto) 0.1 %; Lymphocytes # (auto) 1.28 K/uL (1.2-3.4); Lymphocytes % (auto) 16.8 %; Mean Corpuscular Hemoglobin 29.6 pg (25-34); Mean Corpuscular Hgb Conc 32.2 g/dL (32-36); Mean Corpuscular Volume 91.8 fL (80-100); Mean Platelet Volume 9.7 fL (7.4-10.4); Monocytes # (auto) 0.42 K/uL (0.11-0.59); Monocytes % (auto) 5.5 %; Neutrophils # (auto) 5.64 K/uL (1.4-6.5); Neutrophils % (auto) 73.8 %; Platelet Count 176 K/uL (130-400); RDW Coefficient of Variation 14.6 % (11.5-14.5); RDW Standard Deviation 49.5 fL (36.4-46.3); Red Blood Count 4.87 M/uL (4.7-6.1); White Blood Count 7.64 K/uL (4.8-10.8)
[2020-10-09 06:27] LABS: Creatinine Clr Calc Pharmacy 64.1 ml/min; Est GFR (African American) 97.9; Est GFR (Non-African American) 84.5; Magnesium 2.1 mg/dl (1.8-2.4)
--- NOTE | 2020-10-09 07:10 | CT Scan Report ---
CT SCAN OF THE BRAIN WITHOUT IV CONTRAST CLINICAL HISTORY: Change in mental status. COMPARISON STUDY: CT of the brain dated 06/20/2020. TECHNIQUE: Unenhanced axial CT scan of the brain is performed from the vertex to the skull base. A do se lowering technique was utilized adhering to the principles of ALARA. CT DOSE: 2006.90 mGycm FINDINGS: Brain parenchyma: There are age-related involutional changes noting mild subcortical and periventric ular microangiopathic change. There is no hemorrhage, mass effect, or evidence of acute territorial i schemia by CT criteria. Vargas-white matter differentiation is preserved. No extra-axial fluid collecti on is seen. Ventricles, sulci, cisterns: Prominent secondary to involutional change. Intracranial vasculature: There is atherosclerotic calcification of the cavernous carotid and vertebr al arteries. Calvarium: The calvarium appears intact. There is chronic posttraumatic deformity of the left zygomat ic arch Sinuses and mastoids: There is mild mucosal thickening within the maxillary and ethmoid sinuses. The remaining visualized paranasal sinuses are clear. The mastoid air cells are well pneumatized. Orbits: The bony orbits are grossly intact. IMPRESSION: There is no hemorrhage, mass effect, or evidence of acute territorial ischemia by CT crit bertram. ACT 112: Negative or not required by law. Electronically signed by: Claudio Reed M.D. 10/09/2020 7:09 AM
--- NOTE | 2020-10-09 07:38 | CT Scan Report ---
CT SCAN OF THE ABDOMEN AND PELVIS WITH IV CONTRAST CLINICAL HISTORY: Fever. Change in mental status. COMPARISON STUDY: Abdominal CT dated 06/04/2020. TECHNIQUE: Following the IV administration of 95 cc of Optiray 320, CT scan of the abdomen and pelvi s is performed from the lung bases to the proximal femora. Images are reviewed in the axial, sagittal , and coronal planes. IV contrast was administered without complication. A dose lowering technique wa s utilized adhering to the principles of ALARA. The examination is degraded by motion artifact. CT DOSE: 1290.11 mGycm FINDINGS: Lung bases: The heart is enlarged and without pericardial effusion. The lung bases are clear noting b ibasilar scarring/atelectasis. There is a large hiatal hernia. Liver: The contrast-enhanced liver is normal in size, contour, and attenuation. There is no intrahepa tic biliary ductal dilatation. The hepatic veins and portal veins are patent. Scattered hepatic cysts measure up to 4 cm. Additional subcentimeter hepatic hypodensities also likely represent cysts but a re too small for definitive characterization. Gallbladder: Gallstones are noted. There is no CT evidence of acute cholecystitis. Spleen: The spleen is mildly enlarged measuring 13.5 cm in length. Pancreas: There is mild to moderate glandular atrophy of the pancreas. At least 3 small cystic lesion s are again seen in the pancreatic tail largest measures 1 cm as seen on image #120. Adrenal glands: Unremarkable. Kidneys: The contrast enhanced kidneys demonstrate cortical atrophy. Foci of cortical scarring are se en in the left upper pole. Again seen is a 3.1 x 2.1 cm calculus within a posterior right-sided bladd er diverticulum, best seen on image #338, and there is a second adjacent 1.1 cm stone seen on image # 350. These cause mass effect on the right vesicoureteral junction with mild right hydroureteronephros is. No additional calculi are clearly identified in the right kidney on this contrast-enhanced examin ation. There are at least 4 nonobstructing left renal calculi. The largest measures up to 13 mm. No h ydronephrosis is seen on the left. The kidneys enhance symmetrically. Numerous subcentimeter cortical hypodensities likely represent cysts but are too small for definitive characterization. Abdominal vasculature: The abdominal aorta is normal in course and caliber noting moderate to advance d atherosclerotic calcification. 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 Bowel: There is advanced colonic diverticulosis without CT evidence of acute diverticulitis. Postoper ative change is seen involving the right colon. There is no bowel obstruction. Moderate fecal retenti on is noted in the colon. The appendix is not visualized. Peritoneum: There is no intraperitoneal free air or abdominal ascites. Lymphadenopathy: None. Pelvic viscera: Evaluation of the pelvis is degraded by streak artifact from a right hip arthroplasty . The prostate gland is markedly enlarged and heterogeneous, measuring 6.4 cm in transverse diameter. There is median lobe hypertrophy. The bladder wall is thickened and trabeculated indicating chronic outlet obstruction. There are numerous bladder diverticula. There are numerous small foci of gas with in the bladder lumen. A right inguinal hernia contains a nonobstructed segment of the bladder as well as a 12 mm bladder stone. An additional 8 mm calculus is noted within the bladder lumen on image #34 8. There is mild pericystic inflammation. Skeletal structures: The skeletal structures are osteopenic. There is moderate to advanced lumbosacra l spondylosis. No lytic or blastic lesions are seen. A right hip arthroplasty is in place. An approxi mately 1.5 x 4 cm thin fluid collection within the subcutaneous soft tissues overlying the right hip arthroplasty is seen on image #413. IMPRESSION: 1. Marked prostatomegaly with evidence of chronic bladder outlet obstruction. 2. There are bladder calculi, with numerous small foci of intraluminal gas and pericystic stranding. Correlate clinically and with urinalysis for evidence of cystitis. 3. A right inguinal hernia contains a segment of the bladder. 4. There are 3.1 cm an 1.1 cm calculi identified within a posterior right-sided bladder diverticulum. This causes mass effect on the right vesicoureteral junction with mild right hydroureteronephrosis. This is similar in appearance to the 06/04/2020 examination. 5. There are additional nonobstructing left renal calculi. 6. Advanced colonic diverticulosis without CT evidence of acute diverticulitis. 7. Large hiatal hernia. 8. Cardiomegaly. 9. 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 10. Cholelithiasis. 11. A thin subcutaneous fluid collection overlying the right hip arthroplasty likely represents a pos toperative seroma/hematoma. 12. Splenomegaly. 13. Additional findings as above. ACT 112: Negative or not required by law. Electronically signed by: Claudio Reed M.D. 10/09/2020 7:36 AM
[2020-10-09] MEDS: ASPIRIN 81 MG ECTAB PO SCH ×2 (08:00→21:17)
[2020-10-09] MEDS: CARBIDOPA/LEVODOPA 25/100MG TAB PO SCH ×4 (08:00→21:17)
[2020-10-09] MEDS: amLODIPine BESYLATE 5 MG TAB PO SCH (08:00)
[2020-10-09] MEDS: CHOLECALCIFEROL 1,000 UNITS 25 MCG TAB PO SCH (08:00)
[2020-10-09] MEDS ORDERED: NON-FORMULARY MEDICATION (Food Supplemt, Lactose-Reduced [Ensure] Liquid) PO SCH (08:00)
[2020-10-09] MEDS: HEPARIN SOD 5,000 UNIT/0.5 ML VIAL SQ SCH ×2 (08:01→21:17)
[2020-10-09] MEDS: AMANTADINE HCL 100 MG CAPSULE PO SCH ×2 (08:01→21:17)
[2020-10-09] MEDS: FERROUS GLUCONATE 324 MG TAB PO SCH ×2 (08:01→17:34)
[2020-10-09] MEDS: DOCUSATE SODIUM 100 MG CAP PO SCH ×2 (08:05→21:17)
--- NOTE | 2020-10-09 14:51 | Communication Note ---
Date of Service: October 09, 2020 The patient was seen and examined in medical telemetry unit. Is a 75-year-old male with significant past medical history including Parkinson's disease, recurrent UTI, mild cognitive impairment, recent history of treated Covid and right hip replacement was admitted from [facility] [place] with increasing confusion, weakness and noted to have UTI. He was noted to have hematoma versus abscess the CAT scan of the right hip surgical site and Ortho was consulted appropriately. He remains stable hemodynamically this morning and denies any acute symptoms. We will continue with his current antibiotics and other medications. We will get PT and OT evaluation before discharge. Dr Moi Godfrey
[2020-10-10] MEDS: SODIUM CHLORIDE 0.9% 1000ML 1,000 ML IV SCH ×2 (01:23→14:14)
[2020-10-10] MEDS: CEFEPIME 2,000 MG in SYRINGE 0 ML IV SCH (01:29)
[2020-10-10 07:14] LABS: Creatinine Clr Calc Pharmacy 69.9 ml/min; Est GFR (African American) 101.5; Est GFR (Non-African American) 87.5
[2020-10-10] MEDS: HEPARIN SOD 5,000 UNIT/0.5 ML VIAL SQ SCH ×2 (08:28→20:30)
[2020-10-10] MEDS: AMANTADINE HCL 100 MG CAPSULE PO SCH ×2 (08:28→20:31)
[2020-10-10] MEDS: ASPIRIN 81 MG ECTAB PO SCH ×3 (08:29→21:35)
[2020-10-10] MEDS: amLODIPine BESYLATE 5 MG TAB PO SCH (08:29)
[2020-10-10] MEDS: DOCUSATE SODIUM 100 MG CAP PO SCH ×3 (08:30→21:35)
[2020-10-10] MEDS: CHOLECALCIFEROL 1,000 UNITS 25 MCG TAB PO SCH (08:30)
[2020-10-10] MEDS: FERROUS GLUCONATE 324 MG TAB PO SCH ×2 (08:30→16:49)
[2020-10-10] MEDS: CARBIDOPA/LEVODOPA 25/100MG TAB PO SCH ×5 (08:30→21:34)
[2020-10-10] MEDS: AMOXICILLIN/CLAVULANATE 875 MG TAB PO SCH ×2 (14:06→16:48)
--- NOTE | 2020-10-10 16:29 | Hospitalist Progress Note ---
Date of Service October 10, 2020 Assessment & Plan (1) Acute confusion: Generalized weakness Mostly metabolic encephalopathy due to UTI CT head showed no hemorrhage, mass effect, or evidence of acute territorial ischemia Fall precaution PT/OT eval UTI Urine cx grew enterococcus faecalis IV cefepime discontinued and transition to Augmentin Continue monitor closely History of Parkinson's: Continue use of carbidopa/levodopa. Right hip hematoma/seroma CT abd/pelvis showed thin subcutaneous fluid collection overlying the right hip arthroplasty likely represents a postoperative seroma/hematoma. Surgery consulted pending Will monitor hemoglobin History of hypertension Continue amlodipine. Benign prostatic hypertrophy: Needs to follow with urology. History of inguinal hernia: Followed with surgery. Deep venous thrombosis prophylaxis: On Subq heparin (Will monitor closely) Disposition: PT/OT eval Will discharge once medically stable Admission and Anticipated Discharge Date Admission Date: October 09, 2020 Subjective Pt was seen and examined for follow up of confusion Lying in bed and seems comfortable He did not verbally respond Review of Systems Review of Systems: All systems reviewed & are unremarkable except as noted in Subjective Physical Exam Physical Exam: General- No acute distress Head- atraumatic Eyes- PERRL, EOMI, ENT- oropharynx clear Neck- supple, no JVD Lungs- clear to auscultation Heart- regular rhythm; no murmur Abdomen- normal bowel sounds, soft, nontender Extremities- no calf tenderness Neuro- awake; PERRL, no facial palsy, move all extremities Skin- warm & dry Results & Data Results & Data ([facility]) Vital Signs (Past 12 Hours) Vital Signs Temp Pulse Pulse Resp BP BP Pulse Ox 10/10/20 15:40 36.7 C 83 18 137/81 95 10/10/20 14:40 84 10/10/20 11:45 37.1 C 60 16 158/79 H 94 10/10/20 07:37 36.4 C L 54 L 16 158/84 H 97 10/10/20 07:04 66
[2020-10-11] MEDS: SODIUM CHLORIDE 0.9% 1000ML 1,000 ML IV SCH (02:45)
[2020-10-11 05:57] LABS: Hematocrit (blood only) 41.3 % (42-52); Hemoglobin 13.3 g/dL (14.0-18.0); Mean Corpuscular Hemoglobin 29.1 pg (25-34); Mean Corpuscular Hgb Conc 32.2 g/dL (32-36); Mean Corpuscular Volume 90.4 fL (80-100); Mean Platelet Volume 9.4 fL (7.4-10.4); Platelet Count 163 K/uL (130-400); RDW Coefficient of Variation 14.4 % (11.5-14.5); RDW Standard Deviation 47.8 fL (36.4-46.3); Red Blood Count 4.57 M/uL (4.7-6.1); White Blood Count 4.09 K/uL (4.8-10.8)
[2020-10-11 06:27] LABS: BUN Creatinine Ratio 23.6 (10-20); Calcium 8.6 mg/dl (8.5-10.1); Creatinine Clr Calc Pharmacy 67.3 ml/min; Est GFR (African American) 99.9; Est GFR (Non-African American) 86.2; Potassium 4.4 mmol/L (3.5-5.1)
[2020-10-11] MEDS: AMOXICILLIN/CLAVULANATE 875 MG TAB PO SCH ×2 (12:41→17:00)
[2020-10-11] MEDS: amLODIPine BESYLATE 5 MG TAB PO SCH (12:42)
[2020-10-11] MEDS: DOCUSATE SODIUM 100 MG CAP PO SCH ×2 (12:42→20:54)
[2020-10-11] MEDS: FERROUS GLUCONATE 324 MG TAB PO SCH ×2 (12:42→17:00)
[2020-10-11] MEDS: CARBIDOPA/LEVODOPA 25/100MG TAB PO SCH ×4 (12:42→20:54)
[2020-10-11] MEDS: ASPIRIN 81 MG ECTAB PO SCH ×2 (12:42→20:54)
[2020-10-11] MEDS: CHOLECALCIFEROL 1,000 UNITS 25 MCG TAB PO SCH (12:43)
[2020-10-11] MEDS: AMANTADINE HCL 100 MG CAPSULE PO SCH ×2 (12:43→20:54)
[2020-10-11] MEDS: HEPARIN SOD 5,000 UNIT/0.5 ML VIAL SQ SCH ×2 (13:19→21:02)
--- NOTE | 2020-10-11 14:37 | Orthopedic Consultation ---
Date of Consultation October 11, 2020 Assessment & Plan (1) History of hemiarthroplasty of right hip: The small fluid collection noted on CT scan is likely seroma/hematoma from previous surgery. I do not feel this to be infectious in nature. Currently he is afebrile and his white count is 4.09. This will likely resolve over time. As patient becomes more awake, he can be out of bed weightbearing as tolerated on the right lower extremity. Follow hip precautions if he is capable of un derstanding this. He can follow-up with Dr. John per his next visit that should be already scheduled. Thank you for this consult. History of Present Illness Reason for Consultation: Seroma/hematoma status post right hemiarthroplasty Attending Physician: Yesi Machado MD History of Present Illness Patient is a 75-year-old white male known to our practice who underwent right hemiarthroplasty of the hip proximally 1 month ago secondary to displaced subcapital hip fracture. Currently the patient is somnolent and will not arouse to physical or verbal stimuli. History will be taken from the chart at this time. Patient was eventually transferred back to [facility] where he was taken care of. He returns to the hospital with a 2-day history of UTI and spiking temperatures. He was having hallucinations etc. and it was felt he should be seen. [facility] brought [facility] of the abdomen and pelvis were performed and noted a small seroma/hematoma near the area of the newly placed right hip hemiarthroplasty. We have been consulted concerning this. Allergies Allergy/AdvReac Type Severity Reaction Status Date / Time No Known Allergies Allergy Verified 10/08/20 21:40 Home Medications Medication Instructions Recorded Confirmed Type diphenhydramine HCl [Banophen] 25 mg PO Q6H PRN 12/04/18 10/08/20 History nystatin 1 applic TOPICAL BID PRN 12/04/18 10/08/20 History carbamide peroxide [Ear Wax Drops] 5 drp OTIC (EAR) Q12H PRN 02/13/19 10/08/20 History docusate sodium 100 mg PO BID 02/13/19 10/08/20 History acetaminophen 325 mg capsule 650 mg PO Q4H PRN cap MDD 3 GMS 06/02/19 10/08/20 History APAP/24 HOURS carbidopa 25 mg-levodopa 100 mg 1 tab PO QID 06/15/19 10/08/20 History tablet amantadine HCl 100 mg capsule 100 mg PO BID #60 cap 10/14/19 10/08/20 Rx amlodipine 2.5 mg tablet 2.5 mg PO DAILY 10/14/19 10/08/20 History aspirin 81 mg PO BID 30 Days #60 tab 09/11/20 10/08/20 Rx ferrous gluconate 324 mg PO BIDM 30 Days #60 tab 09/11/20 10/08/20 Rx cholecalciferol (vitamin D3) 50 mcg PO DAILY 10/08/20 10/08/20 History [Vitamin D3] food supplemt, lactose-reduced 1 ea PO BIDM 10/08/20 10/08/20 History [Ensure] Patient History Medical History Acute renal failure hx 10/2018 Bilateral hydronephrosis BPH (benign prostatic hyperplasia) Bradycardia Ulrich catheter in place MVP (mitral valve prolapse) Moderate prolapse of the posterior mitral valve leaflet per 04/2019 ECHO Parkinson disease with cognitive impairment Tremor Surgical History (Updated 10/11/20 @ 14:32 by Antelmo Lara PA-C) History of hemiarthroplasty of right hip History of prostate surgery History of testicular surgery 06/2019. General anesthesia. 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 He is currently sleeping and is very somnolent. He will not arouse to verbal or physical stimuli. On examination of his right hip, there is a well-healed incision over the lateral aspect of his hip. Valreie have been removed. There is no erythema. He has some slight swelling around the incision itself. There is no drainage. The incisional area does not overtly feel hot to the touch. Palpation does not cause him to grimace when this area is inspected. I can take his right lower extremity through gentle passive range of motion of the right hip and knee without him being awoken. This does not appear to bother him. The like lengths appear equal. He might have some residual thigh swelling compared to the left but is minimal at best. Results & Data ([facility]) Vital Signs (Past 12 Hours) Vital Signs Temp Pulse Pulse Resp BP BP Pulse Ox 10/11/20 11:34 36.7 C 64 18 166/83 H 90 10/11/20 07:37 36.6 C 48 L 20 169/81 H 162/75 H 96 10/11/20 07:26 45 L Diagnostic Findings Patient: NAHEED BOWIE LAdmit Date: 10/09/20#: [id number]: [id number] [facility] [address] [address]Acct ID:[id number]: C/O MARBELLA Apple FISHERBirth Date: [address] [facility] Zip: [place] [id number]: 75Location: 2[facility] [address] Phy: Rebekah Godfrey MDDiagnosis: UTIPri Phy: [facility]Ser[facility] Date: 10/08/20Fa Phy:Interpreting Phy: Claudio Reed MDAit Phy: Anatoliy Blue MD Ordering Phy: Bernard Fitch DO cc: ~ CT SCAN OF THE ABDOMEN AND PELVIS WITH IV CONTRAST CLINICAL HISTORY: Fever. Change in mental status. COMPARISON STUDY: Abdominal CT dated 06/04/2020. TECHNIQUE: Following the IV administration of 95 cc of Optiray 320, CT scan of the abdomen and pelvis is performed from the lung bases to the proximal femora. Images are reviewed in the axial, sagittal, and coronal planes. IV contrast was administered without complication. A dose lowering technique was utilized adhering to the principles of ALARA. The examination is degraded by motion artifact. CT DOSE: 1290.11 mGycm FINDINGS: Lung bases: The heart is enlarged and without pericardial effusion. The lung bases are clear noting bibasilar scarring/atelectasis. There is a large hiatal hernia. Liver: The contrast-enhanced liver is normal in size, contour, and attenuation. There is no intrahepatic biliary ductal dilatation. The hepatic veins and portal veins are patent. Scattered hepatic cysts measure up to 4 cm. Additional subcentimeter hepatic hypodensities also likely represent cysts but are too small for definitive characterization. Gallbladder: Gallstones are noted. There is no CT evidence of acute cholecystitis. Spleen: The spleen is mildly enlarged measuring 13.5 cm in length. Pancreas: There is mild to moderate glandular atrophy of the pancreas. At least 3 small cystic lesions are again seen in the pancreatic tail largest measures 1 cm as seen on image #120. Adrenal glands: Unremarkable. Kidneys: The contrast enhanced kidneys demonstrate cortical atrophy. Foci of cortical scarring are seen in the left upper pole. Again seen is a 3.1 x 2.1 cm calculus within a posterior right-sided bladder diverticulum, best seen on image #338, and there is a second adjacent 1.1 cm stone seen on image #350. These cause mass effect on the right vesicoureteral junction with mild right hydroureteronephrosis. No additional calculi are clearly identified in the right kidney on this contrast-enhanced examination. There are at least 4 nonobstructing left renal calculi. The largest measures up to 13 mm. No hydronephrosis is seen on the left. The kidneys enhance symmetrically. Numerous subcentimeter cortical hypodensities likely represent cysts but are too small for definitive characterization. Abdominal vasculature: The abdominal aorta is normal in course and caliber noting moderate to advanced atherosclerotic calcification. 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 Bowel: There is advanced colonic diverticulosis without CT evidence of acute diverticulitis. Postoperative change is seen involving the right colon. There is no bowel obstruction. Moderate fecal retention is noted in the colon. The appendix is not visualized. Peritoneum: There is no intraperitoneal free air or abdominal ascites. Lymphadenopathy: None. Pelvic viscera: Evaluation of the pelvis is degraded by streak artifact from a right hip arthroplasty. The prostate gland is markedly enlarged and heterogeneous, measuring 6.4 cm in transverse diameter. There is median lobe hypertrophy. The bladder wall is thickened and trabeculated indicating chronic outlet obstruction. There are numerous bladder diverticula. There are numerous small foci of gas within the bladder lumen. A right inguinal hernia contains a nonobstructed segment of the bladder as well as a 12 mm bladder stone. An additional 8 mm calculus is noted within the bladder lumen on image #348. There is mild pericystic inflammation. Skeletal structures: The skeletal structures are osteopenic. There is moderate to advanced lumbosacral spondylosis. No lytic or blastic lesions are seen. A right hip arthroplasty is in place. An approximately 1.5 x 4 cm thin fluid collection within the subcutaneous soft tissues overlying the right hip arthroplasty is seen on image #413. IMPRESSION: 1. Marked prostatomegaly with evidence of chronic bladder outlet obstruction. 2. There are bladder calculi, with numerous small foci of intraluminal gas and pericystic stranding. Correlate clinically and with urinalysis for evidence of cystitis. 3. A right inguinal hernia contains a segment of the bladder. 4. There are 3.1 cm an 1.1 cm calculi identified within a posterior right-sided bladder diverticulum. This causes mass effect on the right vesicoureteral junction with mild right hydroureteronephrosis. This is similar in appearance to the 06/04/2020 examination. 5. There are additional nonobstructing left renal calculi. 6. Advanced colonic diverticulosis without CT evidence of acute diverticulitis. 7. Large hiatal hernia. 8. Cardiomegaly. 9. 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 10. Cholelithiasis. 11. A thin subcutaneous fluid collection overlying the right hip arthroplasty likely represents a postoperative seroma/hematoma. 12. Splenomegaly.
--- NOTE | 2020-10-11 16:42 | Hospitalist Progress Note ---
Date of Service October 11, 2020 Assessment & Plan (1) Acute confusion: Generalized weakness Mostly metabolic encephalopathy due to UTI CT head showed no hemorrhage, mass effect, or evidence of acute territorial ischemia Fall precaution PT/OT eval UTI Urine cx grew enterococcus faecalis IV cefepime discontinued and transition to Augmentin Continue monitor closely History of Parkinson's: Continue use of carbidopa/levodopa. Right hip hematoma/seroma CT abd/pelvis showed thin subcutaneous fluid collection overlying the right hip arthroplasty likely represents a postoperative seroma/hematoma. Surgery consulted pending Will monitor hemoglobin History of hypertension Continue amlodipine. Benign prostatic hypertrophy: Needs to follow with urology. History of inguinal hernia: Followed with surgery. Deep venous thrombosis prophylaxis: On Subq heparin (Will monitor closely) Disposition: PT/OT eval Will discharge once medically stable Admission and Anticipated Discharge Date Admission Date: October 09, 2020 Subjective Pt was seen and examined for follow up of confusion Lying in bed and seems comfortable He did not verbally respond Eyes are closed today Physical Exam Physical Exam: General- No acute distress Head- atraumatic Eyes- PERRL, EOMI, ENT- oropharynx clear Neck- supple, no JVD Lungs- clear to auscultation Heart- regular rhythm; no murmur Abdomen- normal bowel sounds, soft, nontender Extremities- no calf tenderness Neuro- awake; PERRL, no facial palsy, move all extremities Skin- warm & dry Results & Data Results & Data ([facility]) Vital Signs (Past 12 Hours) Vital Signs Temp Pulse Pulse Resp BP BP Pulse Ox 10/11/20 15:37 36.9 C 67 18 157/91 H 96 10/11/20 14:38 48 L 10/11/20 11:34 36.7 C 64 18 166/83 H 90 10/11/20 07:37 36.6 C 48 L 20 169/81 H 162/75 H 96 10/11/20 07:26 45 L
[2020-10-12] MEDS: AMOXICILLIN/CLAVULANATE 875 MG TAB PO SCH ×2 (11:14→17:02)
[2020-10-12] MEDS: FERROUS GLUCONATE 324 MG TAB PO SCH ×2 (11:15→17:02)
[2020-10-12] MEDS: ASPIRIN 81 MG ECTAB PO SCH ×2 (11:16→20:50)
[2020-10-12] MEDS: DOCUSATE SODIUM 100 MG CAP PO SCH ×2 (11:16→20:50)
[2020-10-12] MEDS: amLODIPine BESYLATE 5 MG TAB PO SCH (11:17)
[2020-10-12] MEDS: AMANTADINE HCL 100 MG CAPSULE PO SCH ×2 (11:17→20:50)
[2020-10-12] MEDS: CHOLECALCIFEROL 1,000 UNITS 25 MCG TAB PO SCH (11:17)
[2020-10-12] MEDS: CARBIDOPA/LEVODOPA 25/100MG TAB PO SCH ×4 (11:17→20:50)
[2020-10-12] MEDS: HEPARIN SOD 5,000 UNIT/0.5 ML VIAL SQ SCH ×2 (14:03→20:51)
--- NOTE | 2020-10-12 14:48 | Palliative Care Consultation ---
Date of Consultation October 12, 2020 Assessment & Plan (1) Palliative care encounter: Félix is a 75 year old male who presented to [facility] with altered mental status and was diagnosed with a UTI. Additional PMH includes Parkinson's Disease, SNHL, COVID-19 (06/07), BPH, and right hip fracture s/p fall s/p Right hemiarthroplasty on 09/08/20. He was subsequently discharged to [facility] for rehabilitation and was then transferred to [facility] where he was up until now. He has been started on IV Cefepime for his UTI and his mental status has been improving. Félix has been reportedly lethargic and not eating for the last two days. Palliative Care was consulted to discuss goals of care. I met with Félix in room 289-2. He was sitting upright and AAOx3. Reportedly, he had been less interactive and was lethargic most of the day yesterday and today. His WBC is in the 4 range and appears to be tolerating IV abx. 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 Additionally, he was able to follow all commands, which is a change from this morning as he was not eating. I did call his cousins Nilsa and Monty who are his legal medical POA's. They indicated that, at baseline, he is 'sharp as a tack'. They say that at baseline he is able to make his own medical decisions. In reviewing PT notes, SNF is recommended for him, which Monty is amenable for him at this time. He said that he has been to [facility] before and tolerated well, but could be more rigorous than his abilities at this time. Case management aware and updated. One thought in reviewing his medications was looking at his Sinemet ([id number]/Levodopa 100 mg). It appears that he is on QID dosing on a lower dose and may benefit from a Neurology follow up post discharge to determine if there is a more effective trend for him based on his symptoms. Reportedly, he was on hospice before, but we are unsure the details to this. In review, he eats a regular diet at baseline. No symptom management needs at this time. At this time, palliative will follow as needed. (2) Acute confusion: (3) Acute UTI: (4) Pneumonia due to COVID-19 virus: (5) Parkinsons disease: History of Present Illness Reason for Consultation: Goals of care Requesting Physician: Dr. Machado Attending Physician: Yesi Machado MD History of Present Illness Félix is a 75 year old male who presented to [facility] with altered mental status and was diagnosed with a UTI. Additional PMH includes Parkinson's Disease, SNHL, COVID-19 (06/07), BPH, and right hip fracture s/p fall s/p Right hemiarthroplasty on 09/08/20. He was subsequently discharged to [facility] for rehabilitation and was then transferred to [facility] where he was up until now. He has been started on IV Cefepime for his UTI and his mental status has been improving. Félix has been reportedly lethargic and not eating for the last two days. Palliative Care was consulted to discuss goals of care. Please see A/P for further information. Thank you for involving palliative care with this individual. Allergies Allergy/AdvReac Type Severity Reaction Status Date / Time No Known Allergies Allergy Verified 10/08/20 21:40 Home Medications Medication Instructions Recorded Confirmed Type diphenhydramine HCl [Banophen] 25 mg PO Q6H PRN 12/04/18 10/08/20 History nystatin 1 applic TOPICAL BID PRN 12/04/18 10/08/20 History carbamide peroxide [Ear Wax Drops] 5 drp OTIC (EAR) Q12H PRN 02/13/19 10/08/20 History docusate sodium 100 mg PO BID 02/13/19 10/08/20 History acetaminophen 325 mg capsule 650 mg PO Q4H PRN cap MDD 3 GMS 06/02/19 10/08/20 History APAP/24 HOURS carbidopa 25 mg-levodopa 100 mg 1 tab PO QID 06/15/19 10/08/20 History tablet amantadine HCl 100 mg capsule 100 mg PO BID #60 cap 10/14/19 10/08/20 Rx amlodipine 2.5 mg tablet 2.5 mg PO DAILY 10/14/19 10/08/20 History aspirin 81 mg PO BID 30 Days #60 tab 09/11/20 10/08/20 Rx ferrous gluconate 324 mg PO BIDM 30 Days #60 tab 09/11/20 10/08/20 Rx cholecalciferol (vitamin D3) 50 mcg PO DAILY 10/08/20 10/08/20 History [Vitamin D3] food supplemt, lactose-reduced 1 ea PO BIDM 10/08/20 10/08/20 History [Ensure] Patient History Medical History Acute renal failure hx 10/2018 Bilateral hydronephrosis BPH (benign prostatic hyperplasia) Bradycardia Ulrich catheter in place MVP (mitral valve prolapse) Moderate prolapse of the posterior mitral valve leaflet per 04/2019 ECHO Parkinson disease with cognitive impairment Tremor Surgical History History of hemiarthroplasty of right hip History of prostate surgery History of testicular surgery 06/2019. General anesthesia. LMA #4 igel Family History Father No pertinent family history Mother No pertinent family history Other Brain tumor Social History Smoking Status: Never smoker Second Hand Exposure: No; Hx Alcohol Use: No Hx Substance Use: No Preferred Language: Botswanan Communication Ability: Impaired High School History Teacher Required: No Beliefs That Will Affect Care: None marital status: Single Current Living Situation: Personal Care Facility Current Living Situation Comment: [facility] current occupational status: retired How many Children do You have: 0 Other Information That Helps Us Care for You: No Feels Safe at Home: Yes Safety Concerns: Feels Safe At This Time Assistive Devices: None Review of Systems Review of Systems: All systems reviewed & are unremarkable except as noted in HPI & below [place] Symptom Assessment Scale: Pain: 0/3 Tiredness: 1/3 Drowsiness: 0/3 Shortness of breath: 0/3 Palliative Performance Scale: 30% Physical Exam Constitutional: well developed, + frail appearing, cooperative and comfortabl e; no acute distress Neck: trachea midline, no thyromegaly Respiratory: normal respiratory effort, lungs clear to auscultation normal respiratory effort; no respiratory distress and no labored breathing Cardiovascular: Rate/Rhythm: regular rate and regular rhythm Heart Sounds: normal S1 and normal S2 Extremities: normal capillary refill; no edema Gastrointestinal (Abdomen): normal bowel sounds, soft, nontender, no hepatosplenomegaly Skin: + crusts, + dry skin, + ecchymosis and + pallor Psychiatric: Orientation: alert, oriented x 3 and cooperative Insight: + limited insight Results & Data ([place]) Vital Signs (Past 12 Hours) Vital Signs Temp Pulse Pulse Resp BP Pulse Ox 10/12/20 11:26 36.8 C 57 L 18 144/80 H 95 10/12/20 07:53 36.6 C 67 18 146/84 H 95 10/12/20 07:11 54 L 10/12/20 03:04 36.6 C 64 18 157/85 H 97 PG Care Time/CCT Total # of Minutes Spent Total Time Spent with Patient: Total time spent is greater than 50% in coordination of care (as documented) at patient's floor/unit and/or counseling patient: Total time spent 70 minutes spent with > 50% of that time spent assessing the patient, discussing goals of care with family and collaborating with IDT Coding Level of Care Code 01918 Inpt Consult Level 3 Diagnoses Palliative care encounter Z51.5 Acute confusion R41.0 Acute UTI N39.0 Pneumonia due to COVID-19 virus U07.1; J12.89 Parkinsons disease G20 Time Spent (min) 70
--- NOTE | 2020-10-12 16:57 | Hospitalist Progress Note ---
Date of Service October 12, 2020 Assessment & Plan (1) Acute confusion: Generalized weakness Mostly metabolic encephalopathy due to UTI CT head showed no hemorrhage, mass effect, or evidence of acute territorial ischemia Fall precaution PT/OT eval UTI Urine cx grew enterococcus faecalis IV cefepime discontinued and transition to Augmentin Continue monitor closely Lethargy/Drowsiness Possible related to Parkinson meds Will hold Levodopa/carbidopa today History of Parkinson's: Will hold carbidopa/levodopa since pt has been very drowsy Will consult neuro to manage his meds Right hip hematoma/seroma CT abd/pelvis showed thin subcutaneous fluid collection overlying the right hip arthroplasty likely represents a postoperative seroma/hematoma. Ortho on board and no surgical intervention needed weightbearing as tolerated on the right lower extremity. Will monitor hemoglobin Follow up with Ortho in 1 week History of hypertension Continue amlodipine. Conjunctivitis he has been keeping his eyes closed +matter in both eyes Will add ofloxacin drops BID Benign prostatic hypertrophy: Needs to follow with urology. History of inguinal hernia: Followed with surgery. Deep venous thrombosis prophylaxis: On Subq heparin (Will monitor closely) Disposition: PT/OT eval Consider inpatient rehab Admission and Anticipated Discharge Date Admission Date: October 09, 2020 Subjective Pt was seen and examined for follow up confusion Lying in bed with no distress Pt is looking much better today He was less interactive and was lethargic most of the day He was awake and feeding himself compare to yesterday Denies any chest pain, palpitation, dizziness and SOB Physical Exam Physical Exam: General- No acute distress Head- atraumatic Eyes- PERRL, EOMI, +crusty matter in both eyes ENT- oropharynx clear Neck- supple, no JVD Lungs- clear to auscultation Heart- regular rhythm; no murmur Abdomen- normal bowel sounds, soft, nontender Extremities- no calf tenderness Neuro- awake; PERRL, no facial palsy, move all extremities Skin- warm & dry Results & Data Results & Data ([facility]) Vital Signs (Past 12 Hours) Vital Signs Temp Pulse Pulse Resp BP Pulse Ox 10/12/20 14:48 36.8 C 63 15 169/85 H 93 10/12/20 11:26 36.8 C 57 L 18 144/80 H 95 10/12/20 07:53 36.6 C 67 18 146/84 H 95 10/12/20 07:11 54 L
[2020-10-13 06:18] LABS: Hematocrit (blood only) 41.9 % (42-52); Hemoglobin 13.7 g/dL (14.0-18.0); Mean Corpuscular Hemoglobin 29.3 pg (25-34); Mean Corpuscular Hgb Conc 32.7 g/dL (32-36); Mean Corpuscular Volume 89.7 fL (80-100); Mean Platelet Volume 9.5 fL (7.4-10.4); Platelet Count 164 K/uL (130-400); RDW Coefficient of Variation 14.2 % (11.5-14.5); RDW Standard Deviation 46.5 fL (36.4-46.3); Red Blood Count 4.67 M/uL (4.7-6.1); White Blood Count 3.99 K/uL (4.8-10.8)
[2020-10-13] MEDS: AMOXICILLIN/CLAVULANATE 875 MG TAB PO SCH ×2 (08:22→17:27)
[2020-10-13] MEDS: AMANTADINE HCL 100 MG CAPSULE PO SCH ×2 (08:23→21:00)
[2020-10-13] MEDS: DOCUSATE SODIUM 100 MG CAP PO SCH ×2 (08:23→21:01)
[2020-10-13] MEDS: FERROUS GLUCONATE 324 MG TAB PO SCH ×2 (08:23→17:27)
[2020-10-13] MEDS: amLODIPine BESYLATE 5 MG TAB PO SCH (08:24)
[2020-10-13] MEDS: CHOLECALCIFEROL 1,000 UNITS 25 MCG TAB PO SCH (08:24)
[2020-10-13] MEDS: ASPIRIN 81 MG ECTAB PO SCH ×2 (08:25→21:00)
[2020-10-13] MEDS: HEPARIN SOD 5,000 UNIT/0.5 ML VIAL SQ SCH ×2 (08:25→21:01)
[2020-10-13] MEDS ORDERED: OFLOXACIN 0.3% OP SOLN 5 ML BTL OP SCH (09:45)
--- NOTE | 2020-10-13 13:22 | Hospitalist Progress Note ---
Date of Service October 13, 2020 Assessment & Plan (1) Acute confusion: Generalized weakness Mostly metabolic encephalopathy due to UTI CT head showed no hemorrhage, mass effect, or evidence of acute territorial ischemia Fall precaution PT/OT eval PT recommended inpatient therapy to SNF Plan to go to rehab UTI Urine cx grew enterococcus faecalis IV cefepime discontinued and transition to Augmentin Continue monitor closely Lethargy/Drowsiness Possible related to Parkinson meds Back to his baseline Will hold Levodopa/carbidopa until advising by Neuro when to resume it History of Parkinson's: Will hold carbidopa/levodopa since pt has been very drowsy Neuro consulted to adjust his parkinson med since pt was very drowsy and lethargy while taking the Levodopa/Carbidopa case discussed with Neurology that recommended to resume the sinemet and continue amantadine Follow up with neurology at the [place] or with [facility] Right hip hematoma/seroma CT abd/pelvis showed thin subcutaneous fluid collection overlying the right hip arthroplasty likely represents a postoperative seroma/hematoma. Ortho on board and no surgical intervention needed weightbearing as tolerated on the right lower extremity. Hemoglobin stable Follow up with Ortho Dr. John in 1 week History of hypertension Continue amlodipine. Conjunctivitis he has been keeping his eyes closed No pus or exudate in the eyelid Will hold on abx drop Continue supportive therapy Benign prostatic hypertrophy: Needs to follow with urology. History of inguinal hernia: Followed with surgery. Deep venous thrombosis prophylaxis: On Subq heparin (Will monitor closely) Disposition: PT/OT eval Waiting for placement for inpatient rehab Admission and Anticipated Discharge Date Admission Date: October 09, 2020 Subjective Pt was seen and examined for follow up confusion Sitting in the chair with no distress watching TV Pt is doing great today and fully awake He was able to communicate, follow commands Denies any chest pain, palpitation, dizziness and SOB Physical Exam Physical Exam: General- No acute distress Head- atraumatic Eyes- PERRL, EOMI ENT- oropharynx clear Neck- supple, no JVD Lungs- clear to auscultation Heart- regular rhythm; no murmur Abdomen- normal bowel sounds, soft, nontender Extremities- no calf tenderness Neuro- awake; PERRL, no facial palsy, move all extremities Skin- warm & dry Results & Data Results & Data ([facility]) Vital Signs (Past 12 Hours) Vital Signs Temp Pulse Pulse Resp BP Pulse Ox 10/13/20 11:32 36.4 C L 84 18 113/78 94 10/13/20 07:54 36.9 C 51 L 18 157/80 H 96 10/13/20 07:25 49 L 10/13/20 03:00 36.6 C 71 14 138/85 97 10/13/20 01:49 67
--- NOTE | 2020-10-13 14:59 | Neurology Consultation ---
Date of Consultation October 13, 2020 Assessment & Plan (1) Acute confusion: 1. UTI on admission- treated with IV CEfepine and on Oct 10 started on oral Augmentin 2. continue treatment to culture. 3. treated UTI likely caused improvement in MS Present on Admission?: Yes (2) Parkinsons disease: 1. unclear where his care for PD was occuring 2. Sinemet 25/100 QID home med- please restart 3. Amantadine 100 mg BID - home med- continue 4. PT/OT for discharge needs 5. would be willing [facility] for [facility] as [facility]. Present on Admission?: Yes Supervising Physician Co-Signing Physician Notes Patient was seen and examined. 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 Mental status improved. Patient parkinsonian on examine including soft speech, bradykinetic, resting tremor, masked facies, and disoriented. [facility] presumably [facility] with [facility] for [facility]. Recommend resuming home parkinson's medications including Sinemet and Amantadine. He can follow up with [facility] after discharge. [facility] defer to the [facility] if [facility] for [facility] to follow patient as outpatient for his Parkinson's disease. Please call with any additional questions or concerns. History of Present Illness Reason for Consultation: medication management for parkinsonism Requesting Physician: Yesi Machado MD Attending Physician: Yesi Machado MD History of Present Illness Félix is a 75 year old male who resides at [facility] Personal Care resident with PMH- BPH, history of urinary retention, history of Parkinson disease, history of sensorineural hearing loss bilaterally, mild cognitive impairment, history of elevated bilirubin, history of liver cyst, history of COVID diagnosed on 05/25/2020 and was readmitted with pseudomonas UTI, metabolic encephalopathy with an ANGE. He was admitted on 09/08/2020 with fall and right hip fracture, status post right bipolar hemiarthroplasty on 09/08/2020 and discharged to [facility] and was back living at [facility]. He was brought into [facility] ED for evaluation of UTI and confusion. He was diagnosed with a UTI 2 days prior to arrival at ED, but not received antibiotics and then was found to have a fever 101 degrees and confusion, hallucinations with people in the room. He had an episode of being unresponsive for a day. all his medications were stopped and he is now awake sitting up in bed and nursing reports he fed himself today. He is uncertain who has been treating his parkinson's disease and was unaware he had Parkinson. denies CP, SOB, abdominal pain, N, V, +[place] Allergies Allergy/AdvReac Type Severity Reaction Status Date / Time No Known Allergies Allergy Verified 10/08/20 21:40 Home Medications Medication Instructions Recorded Confirmed Type diphenhydramine HCl [Banophen] 25 mg PO Q6H PRN 12/04/18 10/08/20 History nystatin 1 applic TOPICAL BID PRN 12/04/18 10/08/20 History carbamide peroxide [Ear Wax Drops] 5 drp OTIC (EAR) Q12H PRN 02/13/19 10/08/20 History docusate sodium 100 mg PO BID 02/13/19 10/08/20 History acetaminophen 325 mg capsule 650 mg PO Q4H PRN cap MDD 3 GMS 06/02/19 10/08/20 History APAP/24 HOURS carbidopa 25 mg-levodopa 100 mg 1 tab PO QID 06/15/19 10/08/20 History tablet amantadine HCl 100 mg capsule 100 mg PO BID #60 cap 10/14/19 10/08/20 Rx amlodipine 2.5 mg tablet 2.5 mg PO DAILY 10/14/19 10/08/20 History aspirin 81 mg PO BID 30 Days #60 tab 09/11/20 10/08/20 Rx ferrous gluconate 324 mg PO BIDM 30 Days #60 tab 09/11/20 10/08/20 Rx cholecalciferol (vitamin D3) 50 mcg PO DAILY 10/08/20 10/08/20 History [Vitamin D3] food supplemt, lactose-reduced 1 ea PO BIDM 10/08/20 10/08/20 History [Ensure] Patient History Medical History (Updated 10/13/20 @ 00:04 by Peter Weber) Acute renal failure hx 10/2018 Bilateral hydronephrosis BPH (benign prostatic hyperplasia) Bradycardia Ulrich catheter in place MVP (mitral valve prolapse) Moderate prolapse of the posterior mitral valve leaflet per 04/2019 ECHO Palliative care encounter Parkinson disease with cognitive impairment Tremor Surgical History History of hemiarthroplasty of right hip History of prostate surgery History of testicular surgery 06/2019. General anesthesia. LMA #4 igel Family History Father No pertinent family history Mother No pertinent family history Other Brain tumor Social History Smoking Status: Never smoker Second Hand Exposure: No; Hx Alcohol Use: No Hx Substance Use: No Preferred Language: Japanese Communication Ability: Impaired Spinal Surgeon Required: No Beliefs That Will Affect Care: None marital status: Single Current Living Situation: Personal Care Facility Current Living Situation Comment: [facility] current occupational status: retired How many Children do You have: 0 Other Information That Helps Us Care for You: No Feels Safe at Home: Yes Safety Concerns: Feels Safe At This Time Assistive Devices: None Review of Systems Review of Systems: All systems reviewed & are unremarkable except as noted in HPI & below Physical Exam Physical Exam: Physical Exam: Constitutional: appearance thin frail Ears, Nose, Mouth and Throat: mucous membranes moist, no injection and skin normal, eyes decreased blink Cardiovascular: normal S-1 and S-2 and regular rate and rhythm Respiratory: clear to auscultation (CTA) and no rales, ronchi or wheeze Musculoskeletal: no peripheral edema and good distal pulses Skin: thin with multiple areas of ecchymosis Eyes: extraocular muscles intact (EOMI) and pupils equal, round and reactive to light (PERRL), difficulty with peripheral vision on right NEUROLOGIC EXAMINATION: Mental status: Alert and interactive, [facility] [place] Oriented to person Speech soft speech low tone Cranial Nerves facial symmetry Reflexes: Deep tendon reflexes were symmetrical and graded 2/5. Sensory: intact to cool and light touch Coordination: finger to nose, no reaching tremor, resting tremor of left hand, minimal cogwheeling Gait/Stance: Posture sitting up in bed Motor: Negative for pronator drift of out stretched arms with eyes closed. Strength: hand early childhood services coordinator biceps, triceps, bilaterally 4+/5, hip flex plantar flex ext 4+5 bilaterally Results & Data ([facility]) Vital Signs (Past 12 Hours) Vital Signs Temp Pulse Pulse Resp BP Pulse Ox 10/13/20 11:32 36.4 C L 84 18 113/78 94 10/13/20 07:54 36.9 C 51 L 18 157/80 H 96 10/13/20 07:25 49 L 10/13/20 03:00 36.6 C 71 14 138/85 97 Laboratory Results Abnormal lab results 10/13/20 Range/Units 06:07 WBC 3.99 L (4.8-10.8) K/uL RBC 4.67 L (4.7-6.1) M/uL Hgb 13.7 L (14.0-18.0) g/dL Hct 41.9 L (42-52) % RDW Std Deviation 46.5 H (36.4-46.3) fL Diagnostic Findings T head-There is no hemorrhage, mass effect, or evidence of acute territorial ischemia by CT criteria.
[2020-10-13] MEDS: CARBIDOPA/LEVODOPA 25/100MG TAB PO SCH (21:01)
[2020-10-14] MEDS: CARBIDOPA/LEVODOPA 25/100MG TAB PO SCH ×2 (08:43→12:33)
[2020-10-14] MEDS: ASPIRIN 81 MG ECTAB PO SCH (08:44)
[2020-10-14] MEDS: amLODIPine BESYLATE 5 MG TAB PO SCH (08:44)
[2020-10-14] MEDS: CHOLECALCIFEROL 1,000 UNITS 25 MCG TAB PO SCH (08:45)
[2020-10-14] MEDS: DOCUSATE SODIUM 100 MG CAP PO SCH (08:45)
[2020-10-14] MEDS: FERROUS GLUCONATE 324 MG TAB PO SCH (08:45)
[2020-10-14] MEDS: AMANTADINE HCL 100 MG CAPSULE PO SCH (08:45)
[2020-10-14] MEDS: AMOXICILLIN/CLAVULANATE 875 MG TAB PO SCH (08:45)
[2020-10-14] MEDS: HEPARIN SOD 5,000 UNIT/0.5 ML VIAL SQ SCH (08:47)
[2020-10-14] MEDS ORDERED: ARTIFICIAL TEARS OP SCH (09:00)
--- NOTE | 2020-10-14 14:35 | Discharge Summary ---
Date of Service October 14, 2020 Admission HPI Per Admitting Provider HISTORY OF PRESENT ILLNESS: This is a 75-year-old male, [facility] Personal Care resident with past medical history significant for BPH, history of urinary retention, was on Ulrich in the past, currently Ulrich removed, history of Parkinson disease, history of sensorineural hearing loss bilaterally, mild cognitive impairment, history of elevated bilirubin, history of liver cyst, history of COVID diagnosed on 05/25/2020 and was readmitted with pseudomonas UTI, metabolic encephalopathy with an ANGE. Again he was admitted on 09/08/2020 with fall and right hip fracture, status post right bipolar hemiarthroplasty on 09/08/2020 and discharged to [facility] and now back at [facility]. Today comes here because of UTI and confusion. As per [facility], he was diagnosed with UTI 2 days ago, but not received antibiotics yet and today was having temperature of 101 degrees and was more confused and was seeing people in the room and they decided to send him to the hospital When he came in, he was having a temperature spike. Currently hemodynamically stable. Closes his eyes, but answers appropriately. Can tell his name, can tell his date of , can tell today's date, but somewhat confused with place , patient thinks he is in [place]. But he was hard of hearing. Denies any headache, denies any neck pain, no chest pain, no shortness of breath, no cough, no abdominal pain, no nausea. His appetite is okay. He said he is eating okay. He is ambulating, somewhat imbalance since his hip fracture. As per nurse, he is on regular diet. Admission Exam Per Admitting Provider GENERAL: The patient is of moderate build, not in acute distress. VITAL SIGNS: Temperature 37, pulse 53, respiratory rate 19, blood pressure 159/81, oxygen 97% on room air. HEENT: Pupils equal, round, and reactive to light. Oral mucosa somewhat dry. NECK: No JVD, no neck masses. CARDIOVASCULAR: S1, S2 heard. Bradycardia. No murmurs. RESPIRATORY SYSTEM: Normal AP diameter. No accessory muscle use. No wheezing, no crackles. ABDOMEN: Soft, bowel sounds present, nontender. No distention. CENTRAL NERVOUS SYSTEM: Alert and oriented to name and time. Obeys simple commands. No facial droop. Speech is clear. EXTREMITIES: No edema, no erythema seen. Principal Diagnosis Acute confusion Generalized weakness Urinary track infection Lethargy/Drowsiness History of Parkinson's: Right hip hematoma/seroma History of hypertension Conjunctivitis Benign prostatic hypertrophy: History of inguinal hernia: Discharge Exam General- No acute distress Head- atraumatic Eyes- PERRL, EOMI ENT- oropharynx clear Neck- supple, no JVD Lungs- clear to auscultation Heart- regular rhythm; no murmur Abdomen- normal bowel sounds, soft, nontender Extremities- no calf tenderness Neuro- awake; PERRL, no facial palsy, move all extremities Skin- warm & dry Discharge Data Allergies Allergy/AdvReac Type Severity Reaction Status Date / Time No Known Allergies Allergy Verified 10/08/20 21:40 Consultations 10/09/20 00:44 Consult Case Management - Discharge Planning Routine 10/10/20 16:41 Consult Orthopedic Surgery Routine 10/12/20 13:56 Consult Palliative Care Routine 10/13/20 00:09 Consult Neurology Routine Ordered Studies 10/08/20 20:58 CT abd pelvis IV con only Urgent 10/08/20 21:12 CT head/brain wo con Urgent CT SCAN OF THE BRAIN WITHOUT IV CONTRAST CLINICAL HISTORY: Change in mental status. COMPARISON STUDY: CT of the brain dated 06/20/2020. TECHNIQUE: Unenhanced axial CT scan of the brain is performed from the vertex to the skull base. A dose lowering technique was utilized adhering to the principles of ALARA. CT DOSE: 2006.90 mGycm FINDINGS: Brain parenchyma: There are age-related involutional changes noting mild subcortical and periventricular microangiopathic change. There is no hemorrhage, mass effect, or evidence of acute territorial ischemia by CT criteria. Vargas- white matter differentiation is preserved. No extra-axial fluid collection is seen. Ventricles, sulci, cisterns: Prominent secondary to involutional change. Intracranial vasculature: There is atherosclerotic calcification of the cavernous carotid and vertebral arteries. Calvarium: The calvarium appears intact. There is chronic posttraumatic deformity of the left zygomatic arch Sinuses and mastoids: There is mild mucosal thickening within the maxillary and ethmoid sinuses. The remaining visualized paranasal sinuses are clear. The mastoid air cells are well pneumatized. Orbits: The bony orbits are grossly intact. IMPRESSION: There is no hemorrhage, mass effect, or evidence of acute territorial ischemia by CT criteria. ACT 112: Negative or not required by law. Electronically signed by: Claudio Reed M.D. 10/09/2020 7:09 AM Dictated: 10/09/20706Transcribed: 10/09/20706 CT SCAN OF THE ABDOMEN AND PELVIS WITH IV CONTRAST CLINICAL HISTORY: Fever. Change in mental status. COMPARISON STUDY: Abdominal CT dated 06/04/2020. TECHNIQUE: Following the IV administration of 95 cc of Optiray 320, CT scan of the abdomen and pelvis is performed from the lung bases to the proximal femora. Images are reviewed in the axial, sagittal, and coronal planes. IV contrast was administered without complication. A dose lowering technique was utilized adhering to the principles of ALARA. The examination is degraded by motion artifact. CT DOSE: 1290.11 mGycm FINDINGS: Lung bases: The heart is enlarged and without pericardial effusion. The lung bases are clear noting bibasilar scarring/atelectasis. There is a large hiatal hernia. Liver: The contrast-enhanced liver is normal in size, contour, and attenuation. There is no intrahepatic biliary ductal dilatation. The hepatic veins and portal veins are patent. Scattered hepatic cysts measure up to 4 cm. Additional subcentimeter hepatic hypodensities also likely represent cysts but are too small for definitive characterization. Gallbladder: Gallstones are noted. There is no CT evidence of acute cholecystitis. Spleen: The spleen is mildly enlarged measuring 13.5 cm in length. Pancreas: There is mild to moderate glandular atrophy of the pancreas. At least 3 small cystic lesions are again seen in the pancreatic tail largest measures 1 cm as seen on image #120. Adrenal glands: Unremarkable. Kidneys: The contrast enhanced kidneys demonstrate cortical atrophy. Foci of cortical scarring are seen in the left upper pole. Again seen is a 3.1 x 2.1 cm calculus within a posterior right-sided bladder diverticulum, best seen on image #338, and there is a second adjacent 1.1 cm stone seen on image #350. These cause mass effect on the right vesicoureteral junction with mild right hydroureteronephrosis. No additional calculi are clearly identified in the right kidney on this contrast-enhanced examination. There are at least 4 nonobstructing left renal calculi. The largest measures up to 13 mm. No hydronephrosis is seen on the left. The kidneys enhance symmetrically. Numerous subcentimeter cortical hypodensities likely represent cysts but are too small for definitive characterization. Abdominal vasculature: The abdominal aorta is normal in course and caliber noting moderate to advanced atherosclerotic calcification. 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 Bowel: There is advanced colonic diverticulosis without CT evidence of acute diverticulitis. Postoperative change is seen involving the right colon. There is no bowel obstruction. Moderate fecal retention is noted in the colon. The appendix is not visualized. Peritoneum: There is no intraperitoneal free air or abdominal ascites. Lymphadenopathy: None. Pelvic viscera: Evaluation of the pelvis is degraded by streak artifact from a right hip arthroplasty. The prostate gland is markedly enlarged and heterogeneous, measuring 6.4 cm in transverse diameter. There is median lobe hypertrophy. The bladder wall is thickened and trabeculated indicating chronic outlet obstruction. There are numerous bladder diverticula. There are numerous small foci of gas within the bladder lumen. A right inguinal hernia contains a nonobstructed segment of the bladder as well as a 12 mm bladder stone. An additional 8 mm calculus is noted within the bladder lumen on image #348. There is mild pericystic inflammation. Skeletal structures: The skeletal structures are osteopenic. There is moderate to advanced lumbosacral spondylosis. No lytic or blastic lesions are seen. A right hip arthroplasty is in place. An approximately 1.5 x 4 cm thin fluid collection within the subcutaneous soft tissues overlying the right hip arthroplasty is seen on image #413. IMPRESSION: 1. Marked prostatomegaly with evidence of chronic bladder outlet obstruction. 2. There are bladder calculi, with numerous small foci of intraluminal gas and pericystic stranding. Correlate clinically and with urinalysis for evidence of cystitis. 3. A right inguinal hernia contains a segment of the bladder. 4. There are 3.1 cm an 1.1 cm calculi identified within a posterior right-sided bladder diverticulum. This causes mass effect on the right vesicoureteral junction with mild right hydroureteronephrosis. This is similar in appearance to the 06/04/2020 examination. 5. There are additional nonobstructing left renal calculi. 6. Advanced colonic diverticulosis without CT evidence of acute diverticulitis. 7. Large hiatal hernia. 8. Cardiomegaly. 9. 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 10. Cholelithiasis. 11. A thin subcutaneous fluid collection overlying the right hip arthroplasty theresa chambers represents a postoperative seroma/hematoma. 12. Splenomegaly. 13. Additional findings as above. ACT 112: Negative or not required by law. Electronically signed by: Claudio Reed M.D. 10/09/2020 7:36 AM Dictated: 10/09/20718Transcribed: 10/09/20718 Hospital Course (1) Acute confusion: Generalized weakness Mostly metabolic encephalopathy due to UTI CT head showed no hemorrhage, mass effect, or evidence of acute territorial ischemia Fall precaution PT/OT eval PT recommended inpatient therapy to SNF Plan to go to rehab UTI Urine cx grew enterococcus faecalis IV cefepime discontinued and transition to Augmentin Continue monitor closely Lethargy/Drowsiness Possible related to Parkinson meds Back to his baseline Will hold Levodopa/carbidopa until advising by Neuro when to resume it History of Parkinson's: Will hold carbidopa/levodopa since pt has been very drowsy Neuro consulted to adjust his parkinson med since pt was very drowsy and lethargy while taking the Levodopa/Carbidopa case discussed with Neurology that recommended to resume the sinemet and continue amantadine [facility]/seroma CT abd/pelvis showed thin subcutaneous fluid collection overlying the right hip arthroplasty likely represents a postoperative seroma/hematoma. Ortho on board and no surgical intervention needed weightbearing as tolerated on the right lower extremity. Hemoglobin stable Follow up with Ortho Dr. John in 1 week History of hypertension Continue amlodipine. Conjunctivitis he has been keeping his eyes closed No pus or exudate in the eyelid Will hold on abx drop Continue supportive therapy Benign prostatic hypertrophy: Needs to follow with urology. History of inguinal hernia: Followed with surgery. Deep venous thrombosis prophylaxis: On Subq heparin (Will monitor closely) Disposition: PT/OT eval Waiting for placement for inpatient rehab Total Time Total Time Spent Total Time Spent (In Minutes): 35 minutes Total Time Includes: Examination of the Patient, Discharge Planning, Medication Reconciliation, Communication With Other Providers and Other Discharge Plan Discharge Items Patient Disposition: Transfer [facility] Fac Reason For Visit: UTI Discharge Diagnosis: Acute confusion Generalized weakness Urinary track infection Lethargy/Drowsiness History of Parkinson's: Right hip hematoma/seroma History of hypertension Conjunctivitis Benign prostatic hypertrophy: History of inguinal hernia: Activity: Resume your previous activity Non-emergency contact: Primary Care Provider Call non-emergency contact if: you have any medication questions and your temperature is above 101 Follow-up/Referrals: [facility] [Primary Care Provider] - Diet: Heart Healthy Addtl Attending Provider Instructions: Follow up with your primary care provider from the [facility] Follow up with neurology outpatient to manage your Parkinson Follow up with Orthopedic Dr. John next week (Please call to confirm for the appointment) Continue physical and occupational therapy Continue weightbearing as tolerated on the right lower extremity. Complete the course of your antibiotic Fall precaution Pending Studies at Discharge: No Stand-Alone Forms: My [facility] [place] [employer] Skilled Items Patient informed of condition?: Yes DNR: Yes Discharge Level of Care: Skilled Communicable Disease: No Discharge Prognosis: Stable Lines: None Urinary Catheter: No Medications and DC Order Prescriptions: New amoxicillin-pot clavulanate [Augmentin] 875-125 mg Tablet 1 tab PO BIDM 2 Days Qty: 4 RF: 0 Continued amlodipine 2.5 mg tablet 2.5 mg PO DAILY RF: 0 amantadine HCl 100 mg capsule 100 mg PO BID Qty: 60 RF: 5 carbidopa-levodopa 25-100 mg tablet 1 tab PO QID RF: 0 acetaminophen 325 mg capsule 650 mg PO Q4H MDD 3 GMS APAP/24 HOURS PRN (Reason: Fever Or Pain) RF: 0 nystatin 100,000 unit/gram Cream 1 applic TOPICAL BID PRN (Reason: Rash) RF: 0 diphenhydramine HCl [Banophen] 25 mg Tablet 25 mg PO Q6H PRN (Reason: Allergy Symptoms) RF: 0 docusate sodium 100 mg capsule 100 mg PO BID RF: 0 carbamide peroxide [Ear Wax Drops] 6.5 % Drops 5 drp OTIC (EAR) Q12H PRN (Reason: Ear Wax Removal) RF: 0 aspirin 81 mg Tablet,Delayed Release (Dr/Ec) 81 mg PO BID 30 Days Qty: 60 RF: 0 ferrous gluconate 324 mg (38 mg iron) Tablet 324 mg PO BIDM 30 Days Qty: 60 RF: 0 Ensure Liquid 1 ea PO BIDM RF: 0 cholecalciferol (vitamin D3) [Vitamin D3] 50 mcg (2,000 unit) Capsule 50 mcg PO DAILY RF: 0 Discharge Orders: Discharge Order (Routine); Ordered 10/14/20 Ordered By: Yesi Machado Admission Data Admit Date/Time: 10/09/20 00:01 Attending Provider: Yesi Machado Admit Provider: Anatoliy Blue Primary Care Provider: [email or web address] Other Providers: Rebekah Godfrey ; Andrea Fleming ; [facility] ; Shirley Mercado ; Huy Louise ; Natalie Mayer at [place] Other Interventions: Discharge Summary Assessment (RN) Last Done: 10/14/20 12:45
== END 2020-10-14 14:38 ==
LOC: ED 20:51 → 2N 10-09 00:01 → SUATTDRO 10-09 00:01 → 2N 10-09 00:28

== ENCOUNTER 2020-12-18 07:52 | Inpatient (IN) ==
--- NOTE | 2020-12-18 08:06 | Emergency Department Note ---
Impression & Plan Closed fracture of right hip, Urinary tract infection, Fall ED Provider Note NAME: NAHEED BOWIE AGE: 75 SEX: M : 1945 ARRIVES VIA: Ambulance INFORMANT: Patient, EMS ED PROVIDER(S): Syed Cerda DO CHIEF COMPLAINT: Fall HPI: The patient is a 75-year-old male who presented to the emergency department for an evaluation of right hip pain. The patient has a history of hip surgery 1 month ago. The patient fell from a standing position at [facility]. The patient has had very significant right hip pain. He was able to bear weight. He states that he was very dizzy and this is why he fell. Patient has a history of Parkinson's and has some underlying dementia. The patient came to the emergency department via EMS. The patient had no witnessed loss of consciousness. He is not sure if he struck his head. He denies having any chest pain. He denies having any difficulty breathing. Reportedly he was compliant with his outpatient medication regimen. He denies having any fever or cough. He states that he got very lightheaded and dizzy and this is why he fell onto his right side. He has no upper extremity pain. ROS: See above HPI for pertinent positives & negatives. A total of 10 systems reviewed and were otherwise negative. PAST MEDICAL HISTORY: See Below PAST SURGICAL HISTORY: See Below FAMILY HISTORY: See Below SOCIAL HISTORY: See Below HOME MEDICATIONS: See Below ALLERGIES: See Below VITALS: See Below PHYSICAL EXAMINATION: GENERAL: The patient is listless but nonanxious appearing. EYES: The conjunctivae are clear. The pupils are round and reactive. EARS, NOSE, MOUTH AND THROAT: The nose is without any evidence of any deformity. Mucous membranes are dry. NECK: The neck is nontender and supple. RESPIRATORY: Shallow respirations were noted. There were diminished breath sounds noted throughout. CARDIOVASCULAR: Regular rate and rhythm noted there no murmurs rubs or gallops normal S1 normal S2. GASTROINTESTINAL: The abdomen is soft. Abdomen is nontender. There is a right inguinal hernia noted which is easily reducible. It is not tender or erythematous. MUSCULOSKELETAL/EXTREMITIES: Right lower extremity is held in partial flexion with mild rotation. The patient resists any range of motion testing of the right hip. There is no tenderness over the right knee or the right lower extremity. SKIN: Skin is warm and dry. No significant pedal edema was noted. NEUROLOGIC: Patient is awake to verbal commands. He is oriented to person place and situation. MEDICAL DECISION MAKING: The patient is a 75-year-old male who presented to the emergency department by ambulance after a fall. The patient lives in a personal fdc. He fell onto his right side. The patient was having very severe pain in his right hip and was unable to ambulate. The patient has a history of a previous hip nimco jose carlos. I discussed the patient's laboratory and radiographic studies with him. The patient was found to have a right periprosthetic hip fracture. I discussed the patient's condition with the [facility] group. They have agreed to evaluate the patient in the emergency department for further management and disposition. He was found to have signs of urinary tract infection on urinalysis. I reviewed the patient's previous urine cultures. He has had a history of Pseudomonas in the past as well as Enterobacter. He was treated with Zosyn which would cover either pathogen. This antibiotic choice may need to be tailored after culture returns. Triage Nursing notes reviewed. Prior medical records reviewed Vital Signs: reviewed and remarkable for no significant abnormalities Differential diagnosis: Fracture, dislocation, neurovascular compromise, compartment syndrome, soft tissue injury, as well as other pathologies. ER treatment provided: See below Diagnostics interpreted by me: ECG: EKG was obtained in the emergency department. My interpretation is normal sinus rhythm at 65 bpm. There is no ectopy. There was no acute ST segment abnormalities noted. Cardiac Monitoring: An order was placed for continuous cardiac monitoring. The monitor shows a rate of 90 bpm with sinus rhythm. Laboratory studies: As stated above and show below. Imaging studies: See below Consultation(s): I discussed this case with Yany who is on-call for the [facility] hospitalist group. They will evaluate the patient in the emergency department. Past Med/Surg History Medical History (Updated 12/18/20 @ 14:25 by Syed Cerda DO) Bilateral hydronephrosis BPH (benign prostatic hyperplasia) Bradycardia Ulrich catheter in place MVP (mitral valve prolapse) Moderate prolapse of the posterior mitral valve leaflet per 04/2019 ECHO Palliative care encounter Parkinson disease with cognitive impairment Pneumonia due to COVID-19 virus Tremor Surgical History History of prostate surgery History of testicular surgery 06/2019. General anesthesia. LMA #4 igel Family History (Updated 12/18/20 @ 10:38 by Yany Larkin PA-C) Other Family history unobtainable due to patient's condition Social History Smoking Status: Never smoker Second Hand Exposure: No; Hx Alcohol Use: No Hx Substance Use: No Preferred Language: Romanian Communication Ability: Impaired Nursing Home Manager Required: No Beliefs That Will Affect Care: None marital status: Single Current Living Situation: Personal Care Facility Current Living Situation Comment: [facility] current occupational status: retired How many Children do You have: 0 Feels Safe at Home: Yes Assistive Devices: None Allergies Allergies Allergy/AdvReac Type Severity Reaction Status Date / Time No Known Allergies Allergy Verified 12/18/20 09:29 Home Meds Home Medications Medication Instructions Recorded Confirmed diphenhydramine HCl [Banophen] 25 mg PO Q6H PRN 12/04/18 12/18/20 nystatin 1 applic TOPICAL BID PRN 12/04/18 12/18/20 carbamide peroxide [Ear Wax Drops] 5 drp OTIC (EAR) Q12H PRN 02/13/19 12/18/20 docusate sodium 100 mg PO BID 02/13/19 12/18/20 acetaminophen 325 mg capsule 650 mg PO Q4H PRN cap MDD 3 GMS 06/02/19 12/18/20 APAP/24 HOURS carbidopa 25 mg-levodopa 100 mg 1 tab PO QID 06/15/19 12/18/20 tablet Ensure 1 ea PO BIDM 10/08/20 12/18/20 cholecalciferol (vitamin D3) 50 mcg PO DAILY 10/08/20 12/18/20 [Vitamin D3] diazepam 5 mg tablet 5 mg PO Q6H PRN tab 11/15/20 12/18/20 morphine 20 mg/5 mL (4 mg/mL) oral 4 mg PO Q4H PRN ml 11/15/20 12/18/20 solution promethazine 25 mg tablet 25 mg PO Q6H PRN 11/15/20 12/18/20 atropine 1 drp SUBLINGUAL Q1H PRN 12/18/20 12/18/20 ferrous sulfate 324 mg PO BID 12/18/20 12/18/20 Previous Rx's Medication Instructions Recorded amantadine HCl 100 mg capsule 100 mg PO BID #60 cap 10/14/19 entacapone 200 mg tablet 200 mg PO QID #120 tab 11/15/20 Results & Data (ED) Vital Signs Vital Signs - 24 hr 12/18/20 07:54 12/18/20 08:04 12/18/20 08:07 Temperature 35.7 C L Temperature Source Oral Pulse Rate 68 64 65 Pulse Rate [Apical] 64 Pulse Rate from SpO2 Sensor 64 65 Respiratory Rate 17 20 19 Respiratory Effort / Characteristics Non-Labored Spontaneous Respiratory Depth Normal Respiratory Pattern Regular Blood Pressure 176/108 H 176/108 H Blood Pressure [Right Arm] 176/108 H Blood Pressure Mean 130 130 Blood Pressure Mean [Right Arm] 130 Pulse Oximetry 95 95 95 Oxygen Delivery Method Room Air Sepsis Recent Fever Within 48 Hours No Sepsis New/Unexplained Change in Mental Status No Sepsis Action Taken by Nursing No Action Required 12/18/20 08:16 12/18/20 09:00 12/18/20 09:02 Temperature Temperature Source Pulse Rate 67 63 72 Pulse Rate [Apical] Pulse Rate from SpO2 Sensor 67 114 H 69 Respiratory Rate 12 16 20 Respiratory Effort / Characteristics Respiratory Depth Respiratory Pattern Blood Pressure 165/100 H 170/99 H Blood Pressure [Right Arm] Blood Pressure Mean 121 122 Blood Pressure Mean [Right Arm] Pulse Oximetry 96 97 94 Oxygen Delivery Method Sepsis Recent Fever Within 48 Hours Sepsis New/Unexplained Change in Mental Status Sepsis Action Taken by Nursing 12/18/20 09:03 12/18/20 09:30 12/18/20 09:31 Temperature Temperature Source Pulse Rate 68 85 83 Pulse Rate [Apical] Pulse Rate from SpO2 Sensor 71 80 78 Respiratory Rate 20 18 21 Respiratory Effort / Characteristics Respiratory Depth Respiratory Pattern Blood Pressure 167/98 H Blood Pressure [Right Arm] Blood Pressure Mean 121 Blood Pressure Mean [Right Arm] Pulse Oximetry 94 99 99 Oxygen Delivery Method Sepsis Recent Fever Within 48 Hours Sepsis New/Unexplained Change in Mental Status Sepsis Action Taken by Group Home Medications Current Medication List: was personally reviewed by me Laboratory Data Attestation: I reviewed the patient's lab results. Result diagrams: 12/18/20 08:15 12/18/20 08:15 Lab Results 12/18/20 12/18/20 12/18/20 Range/Units 08:03 08:15 08:15 WBC 6.86 (4.8-10.8) K/uL RBC 5.40 (4.7-6.1) M/uL Hgb 15.3 (14.0-18.0) g/dL Hct 46.0 (42-52) % MCV 85.2 (80-100) fL MCH 28.3 (25-34) pg MCHC 33.3 (32-36) g/dL RDW Std Deviation 45.7 (36.4-46.3) fL RDW Coeff of Kayley 14.7 H (11.5-14.5) % Plt Count 196 (130-400) K/uL MPV 9.5 (7.4-10.4) fL Immature Gran % (Auto) 0.4 % Neut % (Auto) 78.4 % Lymph % (Auto) 15.7 % Wheeler % (Auto) 3.5 % Eos % (Auto) 1.9 % Baso % (Auto) 0.1 % Neut # (Auto) 5.37 (1.4-6.5) K/uL Lymph # (Auto) 1.08 L (1.2-3.4) K/uL Wheeler # (Auto) 0.24 (0.11-0.59) K/uL Eos # (Auto) 0.13 (0-0.5) K/uL Baso # (Auto) 0.01 (0-0.2) K/uL Immature Gran # (Auto) 0.03 H (0.00-0.02) K/uL PT 10.4 (9.0-12.0) Seconds INR 1.0 (0.9-1.1) APTT 28.7 (21.0-31.0) Seconds PTT Ratio 1.1 Sodium (136-145) mmol/L Potassium (3.5-5.1) mmol/L Chloride (98-107) mmol/L Carbon Dioxide (21-32) mmol/L Anion Gap (3-11) BUN (7-18) mg/dl Creatinine (0.6-1.4) mg/dl Est Cr Clr Drug Dosing ml/min Est GFR ( Amer) Est GFR (Non-Af Amer) BUN/Creatinine Ratio (10-20) Glucose (70-99) mg/dl Calcium (8.5-10.1) mg/dl Magnesium (1.8-2.4) mg/dl Total Bilirubin (0.2-1) mg/dl AST (15-37) U/L ALT (12-78) U/L Alkaline Phosphatase (45-117) U/L Total Creatine Kinase (39-308) U/L Troponin I (0-0.045) ng/ml Total Protein (6.4-8.2) gm/dl Albumin (3.4-5.0) gm/dl Globulin (2.5-4.0) gm/dl Albumin/Globulin Ratio (0.9-2) TSH (0.300-4.500) uIu/ml Urine Color Dark Yellow Urine Appearance Cloudy A (Clear) Urine pH 7.0 (4.5-7.5) Ur Specific Stuart 1.018 (1.000-1.030) Urine Protein Trace H (Negative) Urine Glucose (UA) Negative (Negative) Urine Ketones Negative (Negative) Urine Blood 3+ H (Negative) Urine Nitrite Positive A (Negative) Urine Bilirubin Negative (Negative) Urine Urobilinogen Negative (Negative) Ur Leukocyte Esterase 3+ H (Negative) Urine WBC (Auto) >30 H (0-5) /hpf Urine RBC (Auto) >30 H (0-4) /hpf U Hyaline Cast (Auto) 1-5 (0-5) /lpf U Epithel Cells (Auto) 10-20 H (0-5) /lpf Urine Bacteria (Auto) 4+ H (Negative) COVID-19 Eval Order SARS-CoV-2 (PCR) (Negative) Influenza Type A (PCR) (Neg) Influenza Type B (PCR) (Neg) RSV (RT-PCR) (Neg) 12/18/20 12/18/20 12/18/20 Range/Units 08:15 09:06 09:06 WBC (4.8-10.8) K/uL RBC (4.7-6.1) M/uL Hgb (14.0-18.0) g/dL Hct (42-52) % MCV (80-100) fL MCH (25-34) pg MCHC (32-36) g/dL RDW Std Deviation (36.4-46.3) fL RDW Coeff of Kayley (11.5-14.5) % Plt Count (130-400) K/uL MPV (7.4-10.4) fL Immature Gran % (Auto) % Neut % (Auto) % Lymph % (Auto) % Wheeler % (Auto) % Eos % (Auto) % Baso % (Auto) % Neut # (Auto) (1.4-6.5) K/uL Lymph # (Auto) (1.2-3.4) K/uL Wheeler # (Auto) (0.11-0.59) K/uL Eos # (Auto) (0-0.5) K/uL Baso # (Auto) (0-0.2) K/uL Immature Gran # (Auto) (0.00-0.02) K/uL PT (9.0-12.0) Seconds INR (0.9-1.1) APTT (21.0-31.0) Seconds PTT Ratio Sodium 138 (136-145) mmol/L Potassium 4.3 (3.5-5.1) mmol/L Chloride 106 (98-107) mmol/L Carbon Dioxide 26 (21-32) mmol/L Anion Gap 6.0 (3-11) BUN 23 H (7-18) mg/dl Creatinine 0.93 (0.6-1.4) mg/dl Est Cr Clr Drug Dosing 58.1 ml/min Est GFR ( Amer) 91.5 Est GFR (Non-Af Amer) 78.9 BUN/Creatinine Ratio 25.3 H (10-20) Glucose 97 (70-99) mg/dl Calcium 9.4 (8.5-10.1) mg/dl Magnesium 2.4 (1.8-2.4) mg/dl Total Bilirubin 0.8 (0.2-1) mg/dl AST 15 (15-37) U/L ALT 18 (12-78) U/L Alkaline Phosphatase 88 (45-117) U/L Total Creatine Kinase 71 (39-308) U/L Troponin I < 0.015 (0-0.045) ng/ml Total Protein 6.9 (6.4-8.2) gm/dl Albumin 3.5 (3.4-5.0) gm/dl Globulin 3.4 (2.5-4.0) gm/dl Albumin/Globulin Ratio 1.0 (0.9-2) TSH 1.530 (0.300-4.500) uIu/ml Urine Color Urine Appearance (Clear) Urine pH (4.5-7.5) Ur Specific Stuart (1.000-1.030) Urine Protein (Negative) Urine Glucose (UA) (Negative) Urine Ketones (Negative) Urine Blood (Negative) Urine Nitrite (Negative) Urine Bilirubin (Negative) Urine Urobilinogen (Negative) Ur Leukocyte Esterase (Negative) Urine WBC (Auto) (0-5) /hpf Urine RBC (Auto) (0-4) /hpf U Hyaline Cast (Auto) (0-5) /lpf U Epithel Cells (Auto) (0-5) /lpf Urine Bacteria (Auto) (Negative) COVID-19 Eval Order CovFluRsv at [facility] SARS-CoV-2 (PCR) NEGATIVE (Negative) Influenza Type A (PCR) Negative (Neg) Influenza Type B (PCR) Negative (Neg) RSV (RT-PCR) Negative (Neg) Administered Medications Morphine Sulfate (Morphine Sulfate 4 Mg/Ml 1 Ml Carp\Vial) 4 mg IV Q3H PRN PRN Reason: Pain (6,7,8,9,10) Stop: 01/01/21 13:02 Last Admin: 12/18/20 13:52 Dose: 4 mg Documented by: [id number] Discontinued Medications Sodium Chloride (Nss) 500 mls @ 999 mls/hr IV .Q31M MARLON Stop: 12/18/20 08:45 Last Infusion: 12/18/20 09:05 Dose: 0 mls/hr Documented by: [id number] Admin: 12/18/20 08:15 Dose: 999 mls/hr Documented by: [id number] Piperacillin Sod/Tazobactam Sod (Zosyn) 4.5 gm in 120 mls @ 240 mls/hr IV NOW ONE Stop: 12/18/20 08:53 Last Infusion: 12/18/20 09:50 Dose: 0 mls/hr Documented by: [id number] Admin: 12/18/20 09:05 Dose: 240 mls/hr Documented by: [id number] Imaging Data Radiologist's Impression: Cervical Spine CT 12/18/20 08:01 CT cervical spine wo con CT DOSE: 1010.69 mGy.cm CLINICAL HISTORY: 75 years-old Male with fall. Acute head and neck injury status post fall COMPARISON: Head CT of same day TECHNIQUE: Multiple axial CT images of the cervical spine were obtained without contrast. A dose lowering technique was utilized adhering to the principles of ALARA. FINDINGS: 4 mm anterolisthesis C7 on T1, likely secondary to chronic facet arthrosis. Multilevel intervertebral disc space narrowing with moderate to severe intervertebral disc space narrowing with moderate spondylitic spurring at C6-C7. Severe multilevel facet arthrosis with degenerative related bony fusion of the facets at C3-C4 lung with partial bony fusion of the vertebral bodies. Mastoid air cells and middle ear cavities are clear. Multilevel neuroforaminal narrowing. No prevertebral edema. The lung apices are clear without pneumot horax. IMPRESSION: No acute fracture or subluxation. ACT 112: Negative or not required by law. The above report was generated using voice recognition software. It may contain grammatical, syntax or spelling errors. Electronically signed by: Emanuel Browne M.D. 12/18/2020 8:51 AM Chest X-Ray 12/18/20 08:01 XR chest 1V portable CLINICAL HISTORY: weakness COMPARISON STUDY: 09/07/2020 FINDINGS: The heart is borderline enlarged. There is a suspected hiatal hernia. There is no failure. There is no focal pulmonary consolidation. There are no pleural effusions. A right paratracheal opacities felt to represent ectatic/tortuous great vessels.[ IMPRESSION: 1. Hiatal hernia. 2. No acute findings. ACT 112: Negative or not required by law. Electronically signed by: Srinivasan Bertrand M.D. 12/18/2020 9:[address] 12/18/20 08:01 CT head/brain wo con CLINICAL HISTORY: Head pain status post trauma COMPARISON STUDY: October 08, 2020 TECHNIQUE: Axial CT of the brain is performed from the vertex to the skull base. IV contrast was not administered for this examination. A dose lowering technique was utilized adhering to the principles of ALARA. CT DOSE: FINDINGS: No intra or extra-axial mass lesions are visualized. There is no CT evidence of acute cortical infarction. There is no evidence of midline shift. There is no acute hemorrhage. No calvarial fractures are visualized. There are patchy white matter hypodensities likely on a small vessel basis. There is no evidence of pathologic ventricular dilatation. There is mild maxillary and ethmoid sinus mucosal thickening. IMPRESSION: No acute intracranial findings ACT 112: Negative or not required by law. Electronically signed by: Srinivasan Bertrand M.D. 12/18/2020 8:43 AM Hip/Pelvis X-Ray 12/18/20 08:01 XR hip RT 2V w pelvis CLINICAL HISTORY: Right hip pain status post trauma COMPARISON: 09/08/2020 DISCUSSION: There is a bipolar right hip replacement. There is an acute oblique right hip subtrochanteric fracture. There is no dislocation. Laminated pelvic calcifications are consistent with bladder calculi. IMPRESSION: 1. Acute subtrochanteric right hip fracture in this patient with a pre-existing bipolar right hip arthroplasty 2. Bladder calculi ACT 112: Negative or not required by law. Electronically signed by: Srinivasan Bertrand M.D. 12/18/2020 9:03 AM Discharge Plan Visit Data Chief Complaint: Fall Stated Complaint: FALL w/ rt LEG SHORTENING & ROTATED ED Provider: Syed Cerda Discharge Problem: Closed fracture of right hip, Urinary tract infection, Fall Patient Disposition: Admitted As Inpatient Condition: Good Discharge Instructions Interventions: ED Discharge Assessment Last Done: 12/18/20 11:16 Discharge Problem: Closed fracture of right hip Qualifiers: Encounter type: initial encounter Qualified Code(s): S72.001A - Fracture of unspecified part of neck of right femur, initial encounter for closed fracture Urinary tract infection Qualifiers: Urinary tract infection type: site unspecified Hematuria presence: with hematuria Qualified Code(s): N39.0 - Urinary tract infection, site not specified Fall Qualifiers: Encounter type: initial encounter Qualified Code(s): W19.XXXA - Unspecified fall, initial encounter
[2020-12-18] MEDS ORDERED: SODIUM CHLORIDE 0.9% 500 ML IV SCH (08:15)
[2020-12-18 08:18] LABS: Appearance Urine Cloudy (Clear); Bacteria Urine Automated 4+ (Negative); Bilirubin Urine Negative (Negative); Blood Urine 3+ (Negative); Color Urine Dark Yellow; Glucose Urine UA Negative (Negative); Ketones Urine Negative (Negative); Leukocyte Esterase Urine 3+ (Negative); Nitrite Urine Positive (Negative); Protein Urine Trace (Negative); RBC Urine Automated >30 /hpf (0-4); Specific Gravity Urine 1.018 (1.000-1.030); Urobilinogen Urine Negative (Negative); WBC Urine Automated >30 /hpf (0-5)
[2020-12-18 08:22] LABS: Basophils # (auto) 0.01 K/uL (0-0.2); Basophils % (auto) 0.1 %; Eosinophils # (auto) 0.13 K/uL (0-0.5); Eosinophils % (auto) 1.9 %; Hemoglobin 15.3 g/dL (14.0-18.0); Immature Granulocytes # (auto) 0.03 K/uL (0.00-0.02); Immature Granulocytes % (auto) 0.4 %; Lymphocytes # (auto) 1.08 K/uL (1.2-3.4); Lymphocytes % (auto) 15.7 %; Mean Corpuscular Hemoglobin 28.3 pg (25-34); Mean Corpuscular Hgb Conc 33.3 g/dL (32-36); Mean Corpuscular Volume 85.2 fL (80-100); Mean Platelet Volume 9.5 fL (7.4-10.4); Monocytes # (auto) 0.24 K/uL (0.11-0.59); Monocytes % (auto) 3.5 %; Neutrophils # (auto) 5.37 K/uL (1.4-6.5); Neutrophils % (auto) 78.4 %; Platelet Count 196 K/uL (130-400); RDW Coefficient of Variation 14.7 % (11.5-14.5); RDW Standard Deviation 45.7 fL (36.4-46.3); White Blood Count 6.86 K/uL (4.8-10.8)
[2020-12-18] MEDS ORDERED: PIPERACILL/TAZOBAC CONSULT ACTIVE PRN ×2 (08:24→13:03)
[2020-12-18] MEDS ORDERED: PIPERACILLIN/TAZOBACTAM 4.5 GM/120 ML BAG IV ONE (08:24)
[2020-12-18 08:33] LABS: Partial Thromboplastin Ratio 1.1; Partial Thromboplastin Time 28.7 Seconds (21.0-31.0); Prothrombin Time 10.4 Seconds (9.0-12.0)
[2020-12-18 08:39] LABS: Alanine Aminotransferase 18 U/L (12-78); Albumin Level 3.5 gm/dl (3.4-5.0); Aspartate Aminotransferase 15 U/L (15-37); BUN Creatinine Ratio 25.3 (10-20); Blood Urea Nitrogen 23 mg/dl (7-18); Calcium 9.4 mg/dl (8.5-10.1); Carbon Dioxide 26 mmol/L (21-32); Chloride 106 mmol/L (98-107); Creatinine Clr Calc Pharmacy 58.1 ml/min; Est GFR (African American) 91.5; Est GFR (Non-African American) 78.9; Glucose 97 mg/dl (70-99); Magnesium 2.4 mg/dl (1.8-2.4); Potassium 4.3 mmol/L (3.5-5.1); Sodium 138 mmol/L (136-145)
--- NOTE | 2020-12-18 08:45 | CT Scan Report ---
CT head/brain wo con CLINICAL HISTORY: Head pain status post trauma COMPARISON STUDY: October 08, 2020 TECHNIQUE: Axial CT of the brain is performed from the vertex to the skull base. IV contrast was not administered for this examination. A dose lowering technique was utilized adhering to the principles of ALARA. CT DOSE: FINDINGS: No intra or extra-axial mass lesions are visualized. There is no CT evidence of acute cortical infarc tion. There is no evidence of midline shift. There is no acute hemorrhage. No calvarial fractures ar e visualized. There are patchy white matter hypodensities likely on a small vessel basis. There is no evidence of pathologic ventricular dilatation. There is mild maxillary and ethmoid sinus mucosal thickening. IMPRESSION: No acute intracranial findings ACT 112: Negative or not required by law. Electronically signed by: Srinivasan Bertrand M.D. 12/18/2020 8:43 AM
[2020-12-18 08:49] LABS: Alkaline Phosphatase 88 U/L (45-117); Bilirubin,Total 0.8 mg/dl (0.2-1); Creatine Kinase 71 U/L (39-308); Globulin 3.4 gm/dl (2.5-4.0); Total Protein 6.9 gm/dl (6.4-8.2); Troponin I < 0.015 ng/ml (0-0.045)
--- NOTE | 2020-12-18 08:53 | CT Scan Report ---
CT cervical spine wo con CT DOSE: 1010.69 mGy.cm CLINICAL HISTORY: 75 years-old Male with fall. Acute head and neck injury status post fall COMPARISON: Head CT of same day TECHNIQUE: Multiple axial CT images of the cervical spine were obtained without contrast. A dose low ering technique was utilized adhering to the principles of ALARA. FINDINGS: 4 mm anterolisthesis C7 on T1, likely secondary to chronic facet arthrosis. Multilevel intervertebral disc space narrowing with moderate to severe intervertebral disc space narrowing with moderate spond ylitic spurring at C6-C7. Severe multilevel facet arthrosis with degenerative related bony fusion of the facets at C3-C4 lung with partial bony fusion of the vertebral bodies. Mastoid air cells and midd le ear cavities are clear. Multilevel neuroforaminal narrowing. No prevertebral edema. The lung apice s are clear without pneumothorax. IMPRESSION: No acute fracture or subluxation. ACT 112: Negative or not required by law. The above report was generated using voice recognition software. It may contain grammatical, syntax o r spelling errors. Electronically signed by: Emanuel Browne M.D. 12/18/2020 8:51 AM
--- NOTE | 2020-12-18 09:03 | XRay Report ---
XR chest 1V portable CLINICAL HISTORY: weakness COMPARISON STUDY: 09/07/2020 FINDINGS: The heart is borderline enlarged. There is a suspected hiatal hernia. There is no failure. There is no focal pulmonary consolidation. There are no pleural effusions. A right paratracheal opaci ties felt to represent ectatic/tortuous great vessels.[ IMPRESSION: 1. Hiatal hernia. 2. No acute findings. ACT 112: Negative or not required by law. Electronically signed by: Srinivasan Bertrand M.D. 12/18/2020 9:01 AM
--- NOTE | 2020-12-18 09:05 | XRay Report ---
XR hip RT 2V w pelvis CLINICAL HISTORY: Right hip pain status post trauma COMPARISON: 09/08/2020 DISCUSSION: There is a bipolar right hip replacement. There is an acute oblique right hip subtrochant isac fracture. There is no dislocation. Laminated pelvic calcifications are consistent with bladder c alculi. IMPRESSION: 1. Acute subtrochanteric right hip fracture in this patient with a pre-existing bipolar right hip art hroplasty 2. Bladder calculi ACT 112: Negative or not required by law. Electronically signed by: Srinivasan Bertrand M.D. 12/18/2020 9:03 AM
--- NOTE | 2020-12-18 09:30 | Electrocardiogram Report ---
Test Reason : Blood Pressure : / mmHG Vent. Rate : 065 BPM Atrial Rate : 065 BPM P-R Int : 154 ms QRS Dur : 098 ms QT Int : 392 ms P-R-T Axes : 070 -49 029 degrees QTc Int : 407 ms Poor data quality, interpretation may be adversely affected Normal sinus rhythm Left axis deviation Nonspecific T wave abnormality Abnormal ECG When compared with ECG of 08-SEP-2020 07:56, No significant change Confirmed by Bennie Stark ([id number]) on 12/18/2020 9:30:12 AM Referred By: REFERRED SELF Confirmed By:Bennie Stark
[2020-12-18 09:57] LABS: Influenza A virus by PCR Negative (Neg); Influenza B virus by PCR Negative (Neg); RSV by PCR Negative (Neg); SARS CoV2 RNA(COVID-19) InHosp NEGATIVE (Negative)
--- NOTE | 2020-12-18 10:40 | History & Physical Report ---
Date of Service December 18, 2020 Assessment & Plan (1) Fall: (2) Fracture of right hip: This is a 75-year-old male who has significant past medical history of advanced Parkinson's disease with dementia, history of UTI, BPH, history of COVID-19 06/07, current hospice care who presents to ED after sustaining fall at personal fdc. He currently resides at [facility]. Pt fell while trying to open window, got dizzy and fell on R side. No LOC. CT head unremarkable. Patient sustained acute subtrochanteric right hip fracture and a pre-existing bipolar right hemiarthroplasty which were performed on 09/[address] John. Admit to med telemetry -monitor on telemetry secondary to dizziness Gentle IV fluid 80 cc/h due to mild dehydration with elevated BUN Consult orthopedics N.p.o. until discussed with Ortho He is DNR/DNI and is on hospice care secondary to underlying Parkinson's disease, but resides in personal care and does still ambulate Discussed with SERVANDO Hwang (cousin), regarding goals of care, would like to discuss with orthopedics regarding options bedrest bowel regimen PRN norco/IV morphine - use only if necessary given to advanced age/parkinson EKG NSR, obtain repeat echo, last 2018 showed moderate MVP, pt does have murmur to cardiac apex which was not documented on previously in event pt does undergo procedure (3) Encephalopathy due to infection: (4) Urinary tract infection: Previous urinalysis grew Enterococcus and Pseudomonas Continue IV Zosyn, await culture Blood culture obtained History of UTIs, indwelling catheter UTIs, recommend removal of Ulrich as soon as able (5) Parkinson disease: (6) Dementia: Parkinson's disease with mild dementia Baseline cognition is labile, per POA patient has good days and bad days and at baseline is able to carry on meaningful conversation Continue amantadine, Sinemet and entacapone [place] [facility] (7) MVP (mitral valve prolapse): obtain echo to eval murmur (8) DVT prophylaxis: SCD/TEDS for now until discussed with orthopedics Dispo: med tele PCP: Angie DNR/DNI Pt was seen and examined in collaboration with Dr. Almaraz, please see addendum History of Present Illness Chief Complaint: Fall prior to arrival. Primary Care Provider: Personal Care, [facility] This is a 75-year-old male who has significant past medical history of advanced Parkinson's disease with dementia, history of UTI, BPH, history of COVID-19 06/07, current hospice care who presents to ED after sustaining fall at [facility]. He currently resides at [facility]. Apparently overnight he got up to open window, felt dizzy and fell on his right side. He was unable to get up and had immediate right hip pain. Unfortunately patient had fall in August 2020 with resultant right subcapital hip fracture requiring bipolar hemiarthroplasty by Dr. John. He underwent PT OT and had been ambulating with a walker at [facility]. He was recently placed on hospice within the past month secondary to advanced dementia. History limited from patient secondary to underlying confusion. Most history obtained from [facility] and SERVANDO Hwang. Per [facility] they had noticed increasing confusion over the past 2 weeks. According to POA patient does have labile confusion and some days are better than others. Goals per the POA are comfort and improved control of Parkinson's. He does follow with [facility] and was recently placed on entacapone for worsening Parkinson's. He also has history of recurrent urinary tract infections. Recently hospitalized September 2020 secondary to metabolic encephalopathy and UTI. Most recently Enterococcus and Pseudomonas were organisms. In ED patient remained hemodynamically stable. Unfortunately he did sustain a right trochanteric fracture of hip with recent bipolar hemiarthroplasty. Also appears patient may have underlying urinary tract infection and therefore was treated with IV antibiotics. ROS unobtainable secondary to underlying confusion. Allergies Allergy/AdvReac Type Severity Reaction Status Date / Time No Known Allergies Allergy Verified 12/18/20 09:29 Home Medications Medication Instructions Recorded Confirmed Type diphenhydramine HCl [Banophen] 25 mg PO Q6H PRN 12/04/18 12/18/20 History nystatin 1 applic TOPICAL BID PRN 12/04/18 12/18/20 History carbamide peroxide [Ear Wax Drops] 5 drp OTIC (EAR) Q12H PRN 02/13/19 12/18/20 H istory docusate sodium 100 mg PO BID 02/13/19 12/18/20 History acetaminophen 325 mg capsule 650 mg PO Q4H PRN cap MDD 3 GMS 06/02/19 12/18/20 History APAP/24 HOURS carbidopa 25 mg-levodopa 100 mg 1 tab PO QID 06/15/19 12/18/20 History tablet amantadine HCl 100 mg capsule 100 mg PO BID #60 cap 10/14/19 12/18/20 Rx Ensure 1 ea PO BIDM 10/08/20 12/18/20 History cholecalciferol (vitamin D3) 50 mcg PO DAILY 10/08/20 12/18/20 History [Vitamin D3] diazepam 5 mg tablet 5 mg PO Q6H PRN tab 11/15/20 12/18/20 History entacapone 200 mg tablet 200 mg PO QID #120 tab 11/15/20 12/18/20 Rx morphine 20 mg/5 mL (4 mg/mL) oral 4 mg PO Q4H PRN ml 11/15/20 12/18/20 History solution promethazine 25 mg tablet 25 mg PO Q6H PRN 11/15/20 12/18/20 History atropine 1 drp SUBLINGUAL Q1H PRN 12/18/20 12/18/20 History ferrous sulfate 324 mg PO BID 12/18/20 12/18/20 History Past Med/Surg History Medical History (Updated 12/18/20 @ 10:43 by Yany Larkin PA-C) Bilateral hydronephrosis BPH (benign prostatic hyperplasia) Bradycardia Ulrich catheter in place MVP (mitral valve prolapse) Moderate prolapse of the posterior mitral valve leaflet per 04/2019 ECHO Palliative care encounter Parkinson disease with cognitive impairment Pneumonia due to COVID-19 virus Tremor Surgical History History of prostate surgery History of testicular surgery 06/2019. General anesthesia. LMA #4 igel Family History (Updated 12/18/20 @ 10:38 by Yany Larkin PA-C) Other Family history unobtainable due to patient's condition Social History Smoking Status: Never smoker Second Hand Exposure: No; Hx Alcohol Use: No Hx Substance Use: No Preferred Language: Indian Communication Ability: Impaired Photo Intern Required: No Beliefs That Will Affect Care: None marital status: Single Current Living Situation: Personal Care Facility Current Living Situation Comment: [facility] current occupational status: retired How many Children do You have: 0 Feels Safe at Home: Yes Assistive Devices: None Review of Systems Review of Systems: All systems reviewed & are unremarkable except as noted in HPI & below Physical Exam Physical Exam: Constitutional: WD/WN, male, vitals as above, NAD, lying in bed, pleasant, answers questions, but not always accurate, alert to self and date, thinks he is in a, "barn." Head: Normocephalic, Atraumatic Eyes: PERRL, conjunctivae normal, anicteric sclerae ENMT: external ear and nose normal, oropharynx normal Neck: trachea midline, no thyromegaly normal visual inspection Respiratory: normal respiratory effort, lungs clear to auscultation, no wheeze, rales, rhonchi. Normal insp/exp effort, no accessory muscle use Cardiovascular: RRR, 2/6 HERMES noted cardiac apex, no edema Vessels: no JVD or carotid bruit Chest: normal inspection of chest Abdomen: normal bowel sounds, soft, nontender, no hepatosplenomegaly Musculoskeletal: no cyanosis or clubbing, active range of motion x4, right lower extremity shortened and externally rotated, NVI distally Skin: no rashes, warm and dry normal turgor Neurologic: PERRL, EOMI, accommodation nl, no face palsy, no dysarthria CN's II-XI intact bilaterally and moves all extremities Psychiatric: A+Ox2 to self and date only, euthymic affect Lymphatic: no cervical or axillary lymphadenopathy : Ulrich catheter in place draining yellow urine Results & Data Results & Data ([facility]) Vital Signs (Past 12 Hours) Vital Signs Temp Pulse Pulse Resp BP BP Pulse Ox 12/18/20 10:00 88 16 100 12/18/20 09:31 83 21 99 12/18/20 09:30 85 18 167/98 H 99 12/18/20 09:03 68 20 94 12/18/20 09:02 72 20 170/99 H 94 12/18/20 09:00 63 16 97 12/18/20 08:16 67 12 165/100 H 96 12/18/20 08:07 65 19 95 12/18/20 08:04 35.7 C L 64 64 20 176/108 H 176/108 H 95 12/18/20 07:54 68 17 176/108 H 95 Diagnostic Findings Cervical Spine CT 12/18/20 08:01 CT cervical spine wo con CT DOSE: 1010.69 mGy.cm CLINICAL HISTORY: 75 years-old Male with fall. Acute head and neck injury status post fall COMPARISON: Head CT of same day TECHNIQUE: Multiple axial CT images of the cervical spine were obtained without contrast. A dose lowering technique was utilized adhering to the principles of ALARA. FINDINGS: 4 mm anterolisthesis C7 on T1, likely secondary to chronic facet arthrosis. Multilevel intervertebral disc space narrowing with moderate to severe intervertebral disc space narrowing with moderate spondylitic spurring at C6-C7. Severe multilevel facet arthrosis with degenerative related bony fusion of the facets at C3-C4 lung with partial bony fusion of the vertebral bodies. Mastoid air cells and middle ear cavities are clear. Multilevel neuroforaminal narrowing. No prevertebral edema. The lung apices are clear without pneumothorax. IMPRESSION: No acute fracture or subluxation. ACT 112: Negative or not required by law. The above report was generated using voice recognition software. It may contain grammatical, syntax or spelling errors. Electronically signed by: Emanuel Browne M.D. 12/18/2020 8:51 AM Chest X-Ray 12/18/20 08:01 XR chest 1V portable CLINICAL HISTORY: weakness COMPARISON STUDY: 09/07/2020 FINDINGS: The heart is borderline enlarged. There is a suspected hiatal hernia. There is no failure. There is no focal pulmonary consolidation. There are no pleural effusions. A right paratracheal opacities felt to represent ectatic/tortuous great vessels.[ IMPRESSION: 1. Hiatal hernia. 2. No acute findings. ACT 112: Negative or not required by law. Electronically signed by: Srinivasan Bertrand M.D. 12/18/2020 9:[address] 12/18/20 08:01 CT head/brain wo con CLINICAL HISTORY: Head pain status post trauma COMPARISON STUDY: October 08, 2020 TECHNIQUE: Axial CT of the brain is performed from the vertex to the skull base. IV contrast was not administered for this examination. A dose lowering technique was utilized adhering to the principles of ALARA. CT DOSE: FINDINGS: No intra or extra-axial mass lesions are visualized. There is no CT evidence of acute cortical infarction. There is no evidence of midline shift. There is no acute hemorrhage. No calvarial fractures are visualized. There are patchy white matter hypodensities likely on a small vessel basis. There is no evidence of pathologic ventricular dilatation. There is mild maxillary and ethmoid sinus mucosal thickening. IMPRESSION: No acute intracranial findings ACT 112: Negative or not required by law. Electronically signed by: Srinivasan Bertrand M.D. 12/18/2020 8:43 AM Hip/Pelvis X-Ray 12/18/20 08:01 XR hip RT 2V w pelvis CLINICAL HISTORY: Right hip pain status post trauma COMPARISON: 09/08/2020 DISCUSSION: There is a bipolar right hip replacement. There is an acute oblique right hip subtrochanteric fracture. There is no dislocation. Laminated pelvic calcifications are consistent with bladder calculi. IMPRESSION: 1. Acute subtrochanteric right hip fracture in this patient with a pre-existing bipolar right hip arthroplasty 2. Bladder calculi ACT 112: Negative or not required by law. Electronically signed by: Srinivasan Bertrand M.D. 12/18/2020 9:03 AM Medications Administered Discontinued Medications Sodium Chloride (Nss) 500 mls @ 999 mls/hr IV .Q31M MARLON Stop: 12/18/20 08:45 Last Infusion: 12/18/20 09:05 Dose: 0 mls/hr Documented by: [id number] Admin: 12/18/20 08:15 Dose: 999 mls/hr Documented by: [id number] Piperacillin Sod/Tazobactam Sod (Zosyn) 4.5 gm in 120 mls @ 240 mls/hr IV NOW ONE Stop: 12/18/20 08:53 Last Infusion: 12/18/20 09:50 Dose: 0 mls/hr Documented by: [id number] Admin: 12/18/20 09:05 Dose: 240 mls/hr Documented by: [id number] ECG Rate (beats per minute): 65 Rhythm: normal sinus COVID-19 Results Results COVID-19 Adm Lab Results: RBC 5.40 M/uL (4.7-6.1) 12/18/20 WBC 6.86 K/uL (4.8-10.8) 12/18/20 Hgb 15.3 g/dL (14.0-18.0) 12/18/20 Hct 46.0 % (42-52) 12/18/20 Plt Count 196 K/uL (130-400) 12/18/20 Neutrophils (%) (Auto) 78.4 % 12/18/20 Lymphocytes (%) (Auto) 15.7 % 12/18/20 Monocytes # (Auto) 0.24 K/uL (0.11-0.59) 12/18/20 Eosinophils # (Auto) 0.13 K/uL (0-0.5) 12/18/20 Immature Granulocyte % (Auto) 0.4 % 12/18/20 Neutrophils # (Auto) 5.37 K/uL (1.4-6.5) 12/18/20 Lymphocytes # (Auto) 1.08 K/uL (1.2-3.4) L 12/18/20 Monocytes # (Auto) 0.24 K/uL (0.11-0.59) 12/18/20 Eosinophils # (Auto) 0.13 K/uL (0-0.5) 12/18/20 Basophils # (Auto) 0.01 K/uL (0-0.2) 12/18/20 Immature Granulocyte # (Auto) 0.03 K/uL (0.00-0.02) H 12/18/20 Na 138 mmol/L (136-145) 12/18/20 K 4.3 mmol/L (3.5-5.1) 12/18/20 Cl 106 mmol/L (98-107) 12/18/20 CO2 26 mmol/L (21-32) 12/18/20 Anion Gap 6.0 (3-11) 12/18/20 BUN 23 mg/dl (7-18) H 12/18/20 Creatinine 0.93 mg/dl (0.6-1.4) 12/18/20 BUN/Creatinine Ratio 25.3 (10-20) H 12/18/20 Glucose Level 97 mg/dl (70-99) 12/18/20 Ca 9.4 mg/dl (8.5-10.1) 12/18/20 Total Bilirubin 0.8 mg/dl (0.2-1) 12/18/20 AST/SGOT 15 U/L (15-37) 12/18/20 ALT/SGPT 18 U/L (12-78) 12/18/20 Alkaline Phosphatase 88 U/L (45-117) 12/18/20 Total Protein 6.9 gm/dl (6.4-8.2) 12/18/20 Albumin 3.5 gm/dl (3.4-5.0) 12/18/20 Globulin 3.4 gm/dl (2.5-4.0) 12/18/20 Albumin/Globulin Ratio 1.0 (0.9-2) 12/18/20 Total CK 71 U/L (39-308) 12/18/20 Troponin I < 0.015 ng/ml (0-0.045) 12/18/20 PTT 28.7 Seconds (21.0-31.0) 12/18/20 INR 1.0 (0.9-1.1) 12/18/20 COVID-19 PCR NEGATIVE (Negative) 12/18/20 Influenza Virus Type A (PCR) Negative (Neg) 12/18/20 Influenza Virus Type B (PCR) Negative (Neg) 12/18/20 Chest X-Ray 12/18/20 Code Status & VTE Plan Code Status DNR/DNI VTE Prophylaxis Plan VTE Prophylaxis will be ordered: Yes Supervising Physician Co-Signing Physician Notes Patient seen examined by me, care coordinated with Yany Larkin PA-C, please refer to her note above for further detail. Patient seen in emergency room B 9, currently laying in bed, in no acute distress. He has his eyes closed, and he is not sure where he is. He opens his eyes to command though without any difficulty. He denies any chest pain, says he has minimal shortness of breath, he is saturating at 98% on room air. Tells me that it was cold so he was going to close the window, when he fell. He says he was little dizzy. He denies tripping over anything. Further history obtained from [facility]. Lung sounds are clear to auscultation bilaterally, heart sounds regular, soft murmur at the apex. Abdomen is soft, nontender nondistended. Ulrich catheter was placed in the ED, drains julian-colored urine. No lower extremity edema, some pain to palpation of right hip. ED positive for nitrite bacteria, leuk esterase and patient was started on Zosyn in the ED. History of Pseudomonas UTI enterococcal UTI. WBC 6.9 thousand. Found to have subtrochanteric right hip fracture, pre-existing bipolar right hip arthroplasty in August. Family contacted, patient on hospice due to Parkinson's disease, but would like to know the options from orthopedics. Currently awaiting further discussion with orthopedics. Laura Almaraz MD (1) Fracture of right hip Encounter type: initial encounter Fracture type: closed Qualified Code(s): S72.001A - Fracture of unspecified part of neck of right femur, initial encounter for closed fracture (2) Fall Encounter type: initial encounter Qualified Code(s): W19.XXXA - Unspecified fall, initial encounter
[2020-12-18] MEDS ORDERED: NALOXONE HCL 0.4 MG/1 ML VIAL/CARP IV PRN (13:03)
[2020-12-18] MEDS ORDERED: MoRPHine SULFATE 4 MG/ML 1 ML CARP\\VIAL IV PRN (13:03)
[2020-12-18] MEDS ORDERED: HYDROCODONE/ACETAMOPHEN 5/325MG TAB PO PRN ×2 (13:03)
[2020-12-18] MEDS ORDERED: MAGNESIUM HYDROXIDE SUSP 30 ML UDC PO PRN (13:03)
[2020-12-18] MEDS ORDERED: ALUMINUM/MAGNESIUM SUSP 30 ML UDC PO PRN (13:03)
[2020-12-18] MEDS ORDERED: MoRPHine SULFATE 2 MG/ML CARP IV PRN (13:03)
[2020-12-18] MEDS ORDERED: POLYETHYLENE (MIRALAX) 17 GM PACK PO PRN (13:03)
[2020-12-18] MEDS ORDERED: ACETAMINOPHEN 325 MG TAB PO PRN (13:03)
[2020-12-18] MEDS ORDERED: bisacodyL 10 MG SUPP PR PRN (13:03)
[2020-12-18] MEDS ORDERED: ONDANSETRON INJ 2 MG/ML 2 ML VIAL IV PRN (13:03)
[2020-12-18] MEDS ORDERED: SODIUM CHLORIDE 0.9% 1000ML 1,000 ML IV SCH (13:30)
--- NOTE | 2020-12-18 14:40 | Orthopedic Consultation ---
Date of Consultation December 18, 2020 Assessment & Plan (1) Periprosthetic fracture around internal prosthetic right hip joint: Discussed at length with POA today patient's diagnosis and treatment options both surgical and conservative including the risk, benefits, alternatives and complications associated with each. Surgical treatment options include revision right hip hemiarthroplasty and ORIF of the proximal femur. The risks and complications of surgery include however not limited to infections, blood clots, acute blood loss, injury to surrounding nerves, bone, vessels, soft tissue, arthrofibrosis, chronic pain, nonunion, malunion, need for additional surgery, hip dislocation and leg length discrepancy, loss of function, further clinical decline and . In the event that the patient's family choose to proceed with comfort measures only the patient would be essentially bed to chair and wheelchair bound. The patient's POA, Monty would like to discuss further with the medical team and family members prior to making any decisions at this point. The patient should maintain bed rest and nonweightbearing of the right lower extremity, pain control, will defer DVT prophylaxis to medical team however would need to be stopped prior to proceeding with any surgery. Thank you for the consultation. History of Present Illness Reason for Consultation: Right hip periprosthetic femur fracture Attending Physician: Ti Almaraz MD History of Present Illness The patient is a 75-year-old male with significant past medical history for dementia, Parkinson's as noted below and recent surgical history right hip hemiarthroplasty secondary to femoral neck fracture on 09/08/2020. It was noted the patient was recently placed on hospice due to worsening dementia and clinical decline. The patient was ambulating [facility] today and sustained a mechanical fall onto his right hip. Patient was brought to [facility] emergency department x-rays obtained do demonstrate a right hip periprosthetic femur fracture. Majority of the HPI was obtained from the chart and patient's POA. Patient resting comfortably and denies pain. The patient is a poor historian and unable to elaborate further on his injury secondary to underlying dementia. Allergies Allergy/AdvReac Type Severity Reaction Status Date / Time No Known Allergies Allergy Verified 12/18/20 09:29 Home Medications Medication Instructions Recorded Confirmed Type diphenhydramine HCl [Banophen] 25 mg PO Q6H PRN 12/04/18 12/18/20 History nystatin 1 applic TOPICAL BID PRN 12/04/18 12/18/20 History carbamide peroxide [Ear Wax Drops] 5 drp OTIC (EAR) Q12H PRN 02/13/19 12/18/20 History docusate sodium 100 mg PO BID 02/13/19 12/18/20 History acetaminophen 325 mg capsule 650 mg PO Q4H PRN cap MDD 3 GMS 06/02/19 12/18/20 History APAP/24 HOURS carbidopa 25 mg-levodopa 100 mg 1 tab PO QID 06/15/19 12/18/20 History tablet amantadine HCl 100 mg capsule 100 mg PO BID #60 cap 10/14/19 12/18/20 Rx Ensure 1 ea PO BIDM 10/08/20 12/18/20 History cholecalciferol (vitamin D3) 50 mcg PO DAILY 10/08/20 12/18/20 History [Vitamin D3] diazepam 5 mg tablet 5 mg PO Q6H PRN tab 11/15/20 12/18/20 History entacapone 200 mg tablet 200 mg PO QID #120 tab 11/15/20 12/18/20 Rx morphine 20 mg/5 mL (4 mg/mL) oral 4 mg PO Q4H PRN ml 11/15/20 12/18/20 History solution promethazine 25 mg tablet 25 mg PO Q6H PRN 11/15/20 12/18/20 History atropine 1 drp SUBLINGUAL Q1H PRN 12/18/20 12/18/20 History ferrous sulfate 324 mg PO BID 12/18/20 12/18/20 History bisacodyl 10 mg SC DAILY PRN #0 ea 12/20/20 Rx cephalexin 500 mg PO BID 5 Days #10 tab 12/20/20 Rx enoxaparin 40 mg SUBCUT QAM 30 Days #12 ml 12/20/20 Rx Patient History Medical History Bilateral hydronephrosis BPH (benign prostatic hyperplasia) Bradycardia Ulrich catheter in place MVP (mitral valve prolapse) Moderate prolapse of the posterior mitral valve leaflet per 04/2019 ECHO Palliative care encounter Parkinson disease with cognitive impairment Pneumonia due to COVID-19 virus Tremor Surgical History History of prostate surgery History of testicular surgery 06/2019. General anesthesia. LMA #4 igel Family History Other Family history unobtainable due to patient's condition Social History Smoking Status: Never smoker Second Hand Exposure: No; Hx Alcohol Use: No Hx Substance Use: No Preferred Language: Japanese Communication Ability: Impaired Benefits Advisor Required: No Beliefs That Will Affect Care: None marital status: Single Current Living Situation: Personal Care Facility Current Living Situation Comment: [facility] current occupational status: retired How many Children do You have: 0 Other Information That Helps Us Care for You: No Feels Safe at Home: Yes Assistive Devices: None Review of Systems Review of Systems: All systems reviewed & are unremarkable except as noted in HPI & below Constitutional: as per Subjective / HPI Physical Exam Physical Exam: Right lower extremity +2 dorsalis pedis pulse, compartment soft nontender, actively wiggles toes when prompted, skin overlying right hip clean dry and intact. Constitutional: WD/WN, vitals as above Results & Data ([facility]) Vital Signs (Past 12 Hours) Vital Signs Temp Pulse Pulse Resp BP BP Pulse Ox 12/18/20 13:58 36.8 C 97 H 20 133/87 97 12/18/20 11:01 98 H 17 12/18/20 11:00 100 H 17 124/82 98 12/18/20 10:32 95 H 22 97 12/18/20 10:31 90 19 140/88 95 12/18/20 10:30 92 H 19 95 12/18/20 10:09 97 H 24 154/101 H 97 12/18/20 10:00 88 16 100 12/18/20 09:31 83 21 99 12/18/20 09:30 85 18 167/98 H 99 12/18/20 09:03 68 20 94 12/18/20 09:02 72 20 170/99 H 94 12/18/20 09:00 63 16 97 12/18/20 08:16 67 12 165/100 H 96 12/18/20 08:07 65 19 95 12/18/20 08:04 35.7 C L 64 64 20 176/108 H 176/108 H 95 12/18/20 07:54 68 17 176/108 H 95 Diagnostic Findings XR hip RT 2V w pelvis CLINICAL HISTORY: Right hip pain status post trauma COMPARISON: 09/08/2020 DISCUSSION: There is a bipolar right hip replacement. There is an acute oblique right hip subtrochanteric fracture. There is no dislocation. Laminated pelvic calcifications are consistent with bladder calculi. IMPRESSION: 1. Acute subtrochanteric right hip fracture in this patient with a pre-existing bipolar right hip arthroplasty 2. Bladder calculi
--- NOTE | 2020-12-18 14:40 | Discharge Summary ---
Date of Service December 18, 2020 Admission HPI Per Admitting Provider This is a 75-year-old male who has significant past medical history of advanced Parkinson's disease with dementia, history of UTI, BPH, history of COVID-19 06/07, current hospice care who presents to ED after [facility] He currently resides at [facility]. Apparently overnight he got up to open window, felt dizzy and fell on his right side. He was unable to get up and had immediate right hip pain. Unfortunately patient had fall in August 2020 with resultant right subcapital hip fracture requiring bipolar hemiarthroplasty by Dr. John. He underwent PT OT and had been ambulating with a walker at formerly [facility]. He was recently placed on hospice within the past month secondary to advanced dementia. History limited from patient secondary to underlying confusion. Most history obtained from [facility] and SERVANDO Hwang. Per [facility] they had noticed increasing confusion over the past 2 weeks. According to POA patient does have labile confusion and some days are better than others. Goals per the POA are comfort and improved control of Parkinson's. He does follow with [facility] and was recently placed on entacapone for worsening Parkinson's. He also has history of recurrent urinary tract infections. Recently hospitalized September 2020 secondary to metabolic encephalopathy and UTI. Most recently Enterococcus and Pseudomonas were organisms. In ED patient remained hemodynamically stable. Unfortunately he did sustain a right trochanteric fracture of hip with recent bipolar hemiarthroplasty. Also appears patient may have underlying urinary tract infection and therefore was treated with IV antibiotics. ROS unobtainable secondary to underlying confusion. Discharge Data Allergies Allergy/AdvReac Type Severity Reaction Status Date / Time No Known Allergies Allergy Verified 12/18/20 09:29 Consultations 12/18/20 09:25 ED Decision to Admit Stat 12/18/20 09:36 Consult Orthopedic Surgery Routine 12/18/20 13:03 Consult Anesthesiology Routine Ordered Studies 12/18/20 08:01 CT cervical spine wo con Stat CT head/brain wo con Stat Discharge Plan Discharge Items Reason For Visit: UTI, R PERIPROSTHETIC HIP FX Condition on Discharge: Good Medications and DC Order Prescriptions: No Action amantadine HCl 100 mg capsule 100 mg PO BID Qty: 60 RF: 5 diazepam 5 mg tablet 5 mg PO Q6H PRN (Reason: Seizure Activity) RF: 0 morphine 20 mg/5 mL (4 mg/mL) solution 4 mg PO Q4H PRN (Reason: Pain) RF: 0 promethazine 25 mg tablet 25 mg PO Q6H PRN (Reason: Nausea) RF: 0 entacapone 200 mg tablet 200 mg PO QID Qty: 120 RF: 5 carbidopa-levodopa 25-100 mg tablet 1 tab PO QID RF: 0 acetaminophen 325 mg capsule 650 mg PO Q4H MDD 3 GMS APAP/24 HOURS PRN (Reason: Fever Or Pain) RF: 0 nystatin 100,000 unit/gram Cream 1 applic TOPICAL BID PRN (Reason: Rash) RF: 0 diphenhydramine HCl [Banophen] 25 mg Tablet 25 mg PO Q6H PRN (Reason: Allergy Symptoms) RF: 0 docusate sodium 100 mg capsule 100 mg PO BID RF: 0 carbamide peroxide [Ear Wax Drops] 6.5 % Drops 5 drp OTIC (EAR) Q12H PRN (Reason: Ear Wax Removal) RF: 0 Ensure Liquid 1 ea PO BIDM RF: 0 cholecalciferol (vitamin D3) [Vitamin D3] 50 mcg (2,000 unit) Capsule 50 mcg PO DAILY RF: 0 atropine 1 % Drops 1 drp sublingual Q1H PRN (Reason: INCREASED RESPIRATORY SECRETION) RF: 0 ferrous sulfate 324 mg (65 mg iron) Tablet,Delayed Release (Dr/Ec) 324 mg PO BID RF: 0 Admission Data Admit Date/Time: 12/18/20 09:36 Attending Provider: Ti Almaraz Admit Provider: Ti Almaraz Primary Care Provider: Emmanuel Wray,[facility], [facility] Other Providers: Taras Aldridge ; Ti Almaraz ; Nathan Sylvester
[2020-12-18] MEDS: ENTACAPONE 200 MG TAB PO SCH ×3 (16:07→20:18)
[2020-12-18] MEDS: CARBIDOPA/LEVODOPA 25/100MG TAB PO SCH ×3 (16:07→20:19)
[2020-12-18] MEDS ORDERED: ENTACAPONE 200 MG TAB PO SCH (17:00)
[2020-12-18] MEDS: PIPERACILLIN/TAZOBACTAM 3.375 GM in DEXTROSE 5% 100 ML IV SCH ×2 (17:08→22:21)
[2020-12-18] MEDS: DOCUSATE SODIUM 100 MG CAP PO SCH (20:18)
[2020-12-18] MEDS: DOCUSATE SODIUM/SENNA 50/8.6MG TAB PO SCH (20:19)
[2020-12-18] MEDS: AMANTADINE HCL 100 MG CAPSULE PO SCH (20:19)
[2020-12-18] MEDS: HEPARIN SOD 5,000 UNIT/0.5 ML VIAL SQ SCH (22:21)
[2020-12-19] MEDS ORDERED: ceFAZolin 2000MG 2,000 MG/15 ML SYR IV SCH (06:00)
[2020-12-19] MEDS: HEPARIN SOD 5,000 UNIT/0.5 ML VIAL SQ SCH ×3 (06:23→21:35)
[2020-12-19] MEDS: PIPERACILLIN/TAZOBACTAM 3.375 GM in DEXTROSE 5% 100 ML IV SCH ×3 (06:23→21:35)
--- NOTE | 2020-12-19 07:38 | XRay Report ---
XR wrist RT min 3V routine HISTORY: 75 years-old Male pain and swollen acute right wrist pain status post trauma COMPARISON: None TECHNIQUE: 3 views of the right wrist FINDINGS: There is an acute comminuted impacted and displaced intra-articular distal radial fracture with mild apex volar angulation. Dorsal displacement measures up to 4 mm. Fracture extension into the distal ra dial cortex and distal radioulnar joint. Lateral displacement measures up to 6 mm. Acute mildly displ aced ulnar styloid fracture. Demineralized appearance of the bones with multifocal osteoarthritis, mo derate within the first carpal metacarpal joint. Moderate soft tissue swelling. IMPRESSION: 1. Acute and comminuted intra-articular distal radial fracture with associated impaction, angulation and displacement as above. 2. Acute mildly displaced ulnar styloid fracture. ACT 112: Negative or not required by law. The above report was generated using voice recognition software. It may contain grammatical, syntax o r spelling errors. Electronically signed by: Emanuel Browne M.D. 12/19/2020 7:36 AM
[2020-12-19 07:39] LABS: Basophils # (auto) 0.02 K/uL (0-0.2); Basophils % (auto) 0.2 %; Eosinophils # (auto) 0.03 K/uL (0-0.5); Eosinophils % (auto) 0.3 %; Hematocrit (blood only) 39.8 % (42-52); Hemoglobin 13.1 g/dL (14.0-18.0); Immature Granulocytes # (auto) 0.04 K/uL (0.00-0.02); Immature Granulocytes % (auto) 0.4 %; Lymphocytes # (auto) 0.49 K/uL (1.2-3.4); Lymphocytes % (auto) 5.1 %; Mean Corpuscular Hgb Conc 32.9 g/dL (32-36); Mean Platelet Volume 9.5 fL (7.4-10.4); Monocytes # (auto) 0.43 K/uL (0.11-0.59); Monocytes % (auto) 4.5 %; Neutrophils # (auto) 8.64 K/uL (1.4-6.5); Neutrophils % (auto) 89.5 %; Platelet Count 179 K/uL (130-400); RDW Coefficient of Variation 15.2 % (11.5-14.5); RDW Standard Deviation 46.7 fL (36.4-46.3); Red Blood Count 4.68 M/uL (4.7-6.1); White Blood Count 9.65 K/uL (4.8-10.8)
[2020-12-19] MEDS: ENTACAPONE 200 MG TAB PO SCH ×4 (08:03→21:35)
[2020-12-19] MEDS: DOCUSATE SODIUM 100 MG CAP PO SCH ×2 (08:04→21:33)
[2020-12-19] MEDS: CARBIDOPA/LEVODOPA 25/100MG TAB PO SCH ×4 (08:04→21:33)
[2020-12-19] MEDS: CHOLECALCIFEROL 1,000 UNITS 25 MCG TAB PO SCH (08:04)
[2020-12-19] MEDS: AMANTADINE HCL 100 MG CAPSULE PO SCH ×2 (08:05→21:33)
[2020-12-19 08:15] LABS: Albumin Level 3.1 gm/dl (3.4-5.0); BUN Creatinine Ratio 28.2 (10-20); Calcium 8.8 mg/dl (8.5-10.1); Creatinine Clr Calc Pharmacy 62.5 ml/min; Est GFR (African American) 95.6; Est GFR (Non-African American) 82.5; Magnesium 2.2 mg/dl (1.8-2.4); Potassium 4.1 mmol/L (3.5-5.1)
--- NOTE | 2020-12-19 08:18 | Hospitalist Progress Note ---
Date of Service December 19, 2020 Assessment & Plan (1) Fall: (2) Fracture of right hip: This is a 75-year-old male who has significant past medical history of advanced Parkinson's disease with dementia, history of UTI, BPH, history of COVID-19 06/07, current hospice care who presents to ED [facility]. He currently resides at [facility]. Pt fell while trying to open/ or close the window, got dizzy and fell on R side. No LOC. CT head unremarkable. Patient sustained acute subtrochanteric right hip fracture and a pre-existing bipolar right hemiarthroplasty which were performed on 09/[address] John. It is now noted that pt also sustained R wrist fracture. Admit to med telemetry -monitor on telemetry secondary to dizziness Gentle IV fluid 80 cc/h due to mild dehydration with elevated BUN Consult orthopedics N.p.o. until discussed with Ortho He is DNR/DNI and is on hospice care secondary to underlying Parkinson's disease, but resides in personal care and does still ambulate Discussed with SERVANDO Hwang (cousin), regarding goals of care, would like to discuss with orthopedics regarding options Discussed with orthopedics, family still to decide on further plan bedrest bowel regimen PRN norco/IV morphine - use only if necessary given to advanced age/parkinson EKG NSR, obtain repeat echo, last 2018 showed moderate MVP, pt does have murmur to cardiac apex which was not documented on previously in event pt does undergo procedure 5/4 R wrist fracture Overnight noted swelling of right wrist, x-ray was obtained icer hand, and shows 1. Acute and comminuted intra-articular distal radial fracture with associated impaction, angulation and displacement as above. 2. Acute mildly displaced ulnar styloid fracture. Applu ice, elevate, pain control Ortho notified (3) Encephalopathy due to infection: (4) Urinary tract infection: Previous urinalysis grew Enterococcus and Pseudomonas Continue IV Zosyn, await culture Blood culture obtained History of UTIs, indwelling catheter UTIs, recommend removal of Ulrich as soon as able Patient unfortunately removed Ulrich by himself, traumatic Urine culture positive for gram-negative bacilli, follow to final cultures Blood culture negative so far (5) Parkinson disease: (6) Dementia: Parkinson's disease with mild dementia Baseline cognition is labile, per POA patient has good days and bad days and at baseline is able to carry on meaningful conversation Continue amantadine, Sinemet and entacapone Follows [facility] (7) MVP (mitral valve prolapse): obtained echo to eval murmur (8) DVT prophylaxis: SCD/TEDS for now until discussed with orthopedics Dispo: med tele PCP: Dr. Adams DNR/DNI Admission and Anticipated Discharge Date Admission Date: December 18, 2020 Subjective Patient seen in follow-up of right hip fracture Earlier this morning, nursing staff noted right wrist swelling, x-ray was obtained, shows radial fracture and ulnar styloid fracture, orthopedics contacted Currently patient is lying in bed, in no acute distress Denies any chest pain, shortness of breath appears comfortable and denies any complaints Orthopedics discussed right hip fracture with family yesterday, family to decide about further plan Review of Systems Review of Systems: All systems reviewed & are unremarkable except as noted in HPI & below Constitutional: no fever and no chills Respiratory: no cough and no dyspnea Cardiovascular: no chest pain and no palpitations Gastrointestinal: no abdominal pain, no nausea and no vomiting Physical Exam Physical Exam: Constitutional: WD/WN, elderly male, in NAD Head: Normocephalic, Atraumatic Eyes: PERRL, EOMI, conjunctivae normal, anicteric sclerae ENMT: external ear and nose normal, oropharynx normal Neck: trachea midline, no thyromegaly normal visual inspection Respiratory: normal respiratory effort, lungs clear to auscultation, no wheeze, rales, rhonchi. Normal insp/exp effort, no accessory muscle use Cardiovascular: RRR, 2/6 HERMES noted cardiac apex, no edema Vessels: no JVD or carotid bruit Chest: normal inspection of chest Abdomen: normal bowel sounds, soft, nontender Musculoskeletal: right lower extremity shortened and externally rotated, NVI distally, R wrist edema and ecchymosis, mildly tender to palpation Skin: no rashes, warm and dry normal turgor Neurologic: PERRL, EOMI, no face palsy, no dysarthria, able to answer some questions appropriately, moves extremities Psychiatric: awake and able to answer some questions appropriately , euthymic affect Results & Data Results & Data ([facility]) Vital Signs (Past 12 Hours) Vital Signs Temp Pulse Pulse Resp BP BP Pulse Ox 12/19/20 04:06 36.9 C 84 18 144/81 H 92 12/19/20 00:34 95 H 12/18/20 22:45 36.4 C L 91 H 18 115/78 93 Laboratory Results 12/19/20 12/19/20 12/19/20 Range/Units 07:24 07:24 07:24 WBC 9.65 (4.8-10.8) K/uL RBC 4.68 L (4.7-6.1) M/uL Hgb 13.1 L (14.0-18.0) g/dL Hct 39.8 L (42-52) % MCV 85.0 (80-100) fL MCH 28.0 (25-34) pg MCHC 32.9 (32-36) g/dL RDW Std Deviation 46.7 H (36.4-46.3) fL RDW Coeff of Kayley 15.2 H (11.5-14.5) % Plt Count 179 (130-400) K/uL MPV 9.5 (7.4-10.4) fL Immature Gran % (Auto) 0.4 % Neut % (Auto) 89.5 % Lymph % (Auto) 5.1 % Andrew % (Auto) 4.5 % Eos % (Auto) 0.3 % Baso % (Auto) 0.2 % Neut # (Auto) 8.64 H (1.4-6.5) K/uL Lymph # (Auto) 0.49 L (1.2-3.4) K/uL Andrew # (Auto) 0.43 (0.11-0.59) K/uL Eos # (Auto) 0.03 (0-0.5) K/uL Baso # (Auto) 0.02 (0-0.2) K/uL Immature Gran # (Auto) 0.04 H (0.00-0.02) K/uL PT (9.0-12.0) Seconds INR (0.9-1.1) APTT (21.0-31.0) Seconds PTT Ratio Sodium 138 (136-145) mmol/L Potassium 4.1 (3.5-5.1) mmol/L Chloride 109 H (98-107) mmol/L Carbon Dioxide 24 (21-32) mmol/L Anion Gap 6.0 (3-11) BUN 25 H (7-18) mg/dl Creatinine 0.89 (0.6-1.4) mg/dl Est Cr Clr Drug Dosing 62.5 ml/min Est GFR ( Amer) 95.6 Est GFR (Non-Af Amer) 82.5 BUN/Creatinine Ratio 28.2 H (10-20) Glucose 116 H (70-99) mg/dl Calcium 8.8 (8.5-10.1) mg/dl Magnesium 2.2 (1.8-2.4) mg/dl Total Bilirubin Pending (0.2-1) mg/dl AST 13 L (15-37) U/L ALT 6 L (12-78) U/L Alkaline Phosphatase Pending (45-117) U/L Total Creatine Kinase (39-308) U/L Troponin I (0-0.045) ng/ml Total Protein Pending (6.4-8.2) gm/dl Albumin 3.1 L (3.4-5.0) gm/dl Globulin Pending (2.5-4.0) gm/dl Albumin/Globulin Ratio Pending (0.9-2) 25-OH Vitamin D Total Pending TSH (0.300-4.500) uIu/ml Urine Color Urine Appearance (Clear) Urine pH (4.5-7.5) Ur Specific [place] (1.000-1.030) Urine Protein (Negative) Urine Glucose (UA) (Negative) Urine Ketones (Negative) Urine Blood (Negative) Urine Nitrite (Negative) Urine Bilirubin (Negative) Urine Urobilinogen (Negative) Ur Leukocyte Esterase (Negative) Urine WBC (Auto) (0-5) /hpf Urine RBC (Auto) (0-4) /hpf U Hyaline Cast (Auto) (0-5) /lpf U Epithel Cells (Auto) (0-5) /lpf Urine Bacteria (Auto) (Negative) COVID-19 Eval Order SARS-CoV-2 (PCR) (Negative) Influenza Type A (PCR) (Neg) Influenza Type B (PCR) (Neg) RSV (RT-PCR) (Neg) Blood Type Antibody Screen 12/18/20 12/18/20 12/18/20 Range/Units 13:18 09:06 09:06 WBC (4.8-10.8) K/uL RBC (4.7-6.1) M/uL Hgb (14.0-18.0) g/dL Hct (42-52) % MCV (80-100) fL MCH (25-34) pg MCHC (32-36) g/dL RDW Std Deviation (36.4-46.3) fL RDW Coeff of Kayley (11.5-14.5) % Plt Count (130-400) K/uL MPV (7.4-10.4) fL Immature Gran % (Auto) % Neut % (Auto) % Lymph % (Auto) % Andrew % (Auto) % Eos % (Auto) % Baso % (Auto) % Neut # (Auto) (1.4-6.5) K/uL Lymph # (Auto) (1.2-3.4) K/uL Andrew # (Auto) (0.11-0.59) K/uL Eos # (Auto) (0-0.5) K/uL Baso # (Auto) (0-0.2) K/uL Immature Gran # (Auto) (0.00-0.02) K/uL PT (9.0-12.0) Seconds INR (0.9-1.1) APTT (21.0-31.0) Seconds PTT Ratio Sodium (136-145) mmol/L Potassium (3.5-5.1) mmol/L Chloride (98-107) mmol/L Carbon Dioxide (21-32) mmol/L Anion Gap (3-11) BUN (7-18) mg/dl Creatinine (0.6-1.4) mg/dl Est Cr Clr Drug Dosing ml/min Est GFR ( Amer) Est GFR (Non-Af Amer) BUN/Creatinine Ratio (10-20) Glucose (70-99) mg/dl Calcium (8.5-10.1) mg/dl Magnesium (1.8-2.4) mg/dl Total Bilirubin (0.2-1) mg/dl AST (15-37) U/L ALT (12-78) U/L Alkaline Phosphatase (45-117) U/L Total Creatine Kinase (39-308) U/L Troponin I (0-0.045) ng/ml Total Protein (6.4-8.2) gm/dl Albumin (3.4-5.0) gm/dl Globulin (2.5-4.0) gm/dl Albumin/Globulin Ratio (0.9-2) 25-OH Vitamin D Total TSH (0.300-4.500) uIu/ml Urine Color Urine Appearance (Clear) Urine pH (4.5-7.5) Ur Specific [place] (1.000-1.030) Urine Protein (Negative) Urine Glucose (UA) (Negative) Urine Ketones (Negative) Urine Blood (Negative) Urine Nitrite (Negative) Urine Bilirubin (Negative) Urine Urobilinogen (Negative) Ur Leukocyte Esterase (Negative) Urine WBC (Auto) (0-5) /hpf Urine RBC (Auto) (0-4) /hpf U Hyaline Cast (Auto) (0-5) /lpf U Epithel Cells (Auto) (0-5) /lpf Urine Bacteria (Auto) (Negative) COVID-19 Eval Order CovFluRsv at [facility] SARS-CoV-2 (PCR) NEGATIVE (Negative) Influenza Type A (PCR) Negative (Neg) Influenza Type B (PCR) Negative (Neg) RSV (RT-PCR) Negative (Neg) Blood Type B Positive Antibody Screen NEGATIVE 12/18/20 12/18/20 12/18/20 Range/Units 08:15 08:15 08:15 WBC 6.86 (4.8-10.8) K/uL RBC 5.40 (4.7-6.1) M/uL Hgb 15.3 (14.0-18.0) g/dL Hct 46.0 (42-52) % MCV 85.2 (80-100) fL MCH 28.3 (25-34) pg MCHC 33.3 (32-36) g/dL RDW Std Deviation 45.7 (36.4-46.3) fL RDW Coeff of Kayley 14.7 H (11.5-14.5) % Plt Count 196 (130-400) K/uL MPV 9.5 (7.4-10.4) fL Immature Gran % (Auto) 0.4 % Neut % (Auto) 78.4 % Lymph % (Auto) 15.7 % Andrew % (Auto) 3.5 % Eos % (Auto) 1.9 % Baso % (Auto) 0.1 % Neut # (Auto) 5.37 (1.4-6.5) K/uL Lymph # (Auto) 1.08 L (1.2-3.4) K/uL Andrew # (Auto) 0.24 (0.11-0.59) K/uL Eos # (Auto) 0.13 (0-0.5) K/uL Baso # (Auto) 0.01 (0-0.2) K/uL Immature Gran # (Auto) 0.03 H (0.00-0.02) K/uL PT 10.4 (9.0-12.0) Seconds INR 1.0 (0.9-1.1) APTT 28.7 (21.0-31.0) Seconds PTT Ratio 1.1 Sodium 138 (136-145) mmol/L Potassium 4.3 (3.5-5.1) mmol/L Chloride 106 (98-107) mmol/L Carbon Dioxide 26 (21-32) mmol/L Anion Gap 6.0 (3-11) BUN 23 H (7-18) mg/dl Creatinine 0.93 (0.6-1.4) mg/dl Est Cr Clr Drug Dosing 58.1 ml/min Est GFR ( Amer) 91.5 Est GFR (Non-Af Amer) 78.9 BUN/Creatinine Ratio 25.3 H (10-20) Glucose 97 (70-99) mg/dl Calcium 9.4 (8.5-10.1) mg/dl Magnesium 2.4 (1.8-2.4) mg/dl Total Bilirubin 0.8 (0.2-1) mg/dl AST 15 (15-37) U/L ALT 18 (12-78) U/L Alkaline Phosphatase 88 (45-117) U/L Total Creatine Kinase 71 (39-308) U/L Troponin I < 0.015 (0-0.045) ng/ml Total Protein 6.9 (6.4-8.2) gm/dl Albumin 3.5 (3.4-5.0) gm/dl Globulin 3.4 (2.5-4.0) gm/dl Albumin/Globulin Ratio 1.0 (0.9-2) 25-OH Vitamin D Total TSH 1.530 (0.300-4.500) uIu/ml Urine Color Urine Appearance (Clear) Urine pH (4.5-7.5) Ur Specific [place] (1.000-1.030) Urine Protein (Negative) Urine Glucose (UA) (Negative) Urine Ketones (Negative) Urine Blood (Negative) Urine Nitrite (Negative) Urine Bilirubin (Negative) Urine Urobilinogen (Negative) Ur Leukocyte Esterase (Negative) Urine WBC (Auto) (0-5) /hpf Urine RBC (Auto) (0-4) /hpf U Hyaline Cast (Auto) (0-5) /lpf U Epithel Cells (Auto) (0-5) /lpf Urine Bacteria (Auto) (Negative) COVID-19 Eval Order SARS-CoV-2 (PCR) (Negative) Influenza Type A (PCR) (Neg) Influenza Type B (PCR) (Neg) RSV (RT-PCR) (Neg) Blood Type Antibody Screen 12/18/20 Range/Units 08:03 WBC (4.8-10.8) K/uL RBC (4.7-6.1) M/uL Hgb (14.0-18.0) g/dL Hct (42-52) % MCV (80-100) fL MCH (25-34) pg MCHC (32-36) g/dL RDW Std Deviation (36.4-46.3) fL RDW Coeff of Kayley (11.5-14.5) % Plt Count (130-400) K/uL MPV (7.4-10.4) fL Immature Gran % (Auto) % Neut % (Auto) % Lymph % (Auto) % Andrew % (Auto) % Eos % (Auto) % Baso % (Auto) % Neut # (Auto) (1.4-6.5) K/uL Lymph # (Auto) (1.2-3.4) K/uL Andrew # (Auto) (0.11-0.59) K/uL Eos # (Auto) (0-0.5) K/uL Baso # (Auto) (0-0.2) K/uL Immature Gran # (Auto) (0.00-0.02) K/uL PT (9.0-12.0) Seconds INR (0.9-1.1) APTT (21.0-31.0) Seconds PTT Ratio Sodium (136-145) mmol/L Potassium (3.5-5.1) mmol/L Chloride (98-107) mmol/L Carbon Dioxide (21-32) mmol/L Anion Gap (3-11) BUN (7-18) mg/dl Creatinine (0.6-1.4) mg/dl Est Cr Clr Drug Dosing ml/min Est GFR ( Amer) Est GFR (Non-Af Amer) BUN/Creatinine Ratio (10-20) Glucose (70-99) mg/dl Calcium (8.5-10.1) mg/dl Magnesium (1.8-2.4) mg/dl Total Bilirubin (0.2-1) mg/dl AST (15-37) U/L ALT (12-78) U/L Alkaline Phosphatase (45-117) U/L Total Creatine Kinase (39-308) U/L Troponin I (0-0.045) ng/ml Total Protein (6.4-8.2) gm/dl Albumin (3.4-5.0) gm/dl Globulin (2.5-4.0) gm/dl Albumin/Globulin Ratio (0.9-2) 25-OH Vitamin D Total TSH (0.300-4.500) uIu/ml Urine Color Dark Yellow Urine Appearance Cloudy A (Clear) Urine pH 7.0 (4.5-7.5) Ur Specific [place] 1.018 (1.000-1.030) Urine Protein Trace H (Negative) Urine Glucose (UA) Negative (Negative) Urine Ketones Negative (Negative) Urine Blood 3+ H (Negative) Urine Nitrite Positive A (Negative) Urine Bilirubin Negative (Negative) Urine Urobilinogen Negative (Negative) Ur Leukocyte Esterase 3+ H (Negative) Urine WBC (Auto) >30 H (0-5) /hpf Urine RBC (Auto) >30 H (0-4) /hpf U Hyaline Cast (Auto) 1-5 (0-5) /lpf U Epithel Cells (Auto) 10-20 H (0-5) /lpf Urine Bacteria (Auto) 4+ H (Negative) COVID-19 Eval Order SARS-CoV-2 (PCR) (Negative) Influenza Type A (PCR) (Neg) Influenza Type B (PCR) (Neg) RSV (RT-PCR) (Neg) Blood Type Antibody Screen Medications Administered Current Inpatient Medications Acetaminophen (Acetaminophen 325 Mg Tab) 650 mg PO Q4H PRN PRN Reason: Pain or Fever Stop: 01/17/21 13:02 Hydrocodone Bitart/Acetaminophen (Hydrocodone/Acetamophen 5/325mg Tab) 1 tab PO Q4H PRN PRN Reason: MODERATE Pain (4,5,6) & Pre PT Stop: 01/01/21 13:02 Hydrocodone Bitart/Acetaminophen (Hydrocodone/Acetamophen 5/325mg Tab) 2 tab PO Q4H PRN PRN Reason: SEVERE Pain (7,8,9,10) Stop: 01/01/21 13:02 Last Admin: 12/19/20 08:01 Dose: 2 tab Documented by: Al Hydrox/Mg Hydrox/Simethicone (Aluminum/Magnesium Susp 30 Ml Udc) 15 ml PO Q4H PRN PRN Reason: Dyspepsia Stop: 01/17/21 13:02 Amantadine HCl (Amantadine Hcl 100 Mg Capsule) 100 mg PO BID [facility] Stop: 01/17/21 20:59 Last Admin: 12/19/20 08:05 Dose: 100 mg Documented by: Bisacodyl (Bisacodyl 10 Mg Supp) 10 mg NV DAILY PRN PRN Reason: Constipation Stop: 01/17/21 13:02 Carbidopa/Levodopa (Carbidopa/Levodopa 25/100mg Tab) 1 tab PO QID [facility] Stop: 01/17/21 13:29 Last Admin: 12/19/20 08:04 Dose: 1 tab Documented by: Docusate Sodium (Docusate Sodium 100 Mg Cap) 100 mg PO BID [facility] Stop: 01/17/21 20:59 Last Admin: 12/19/20 08:04 Dose: 100 mg Documented by: Entacapone (Entacapone 200 Mg Tab) 200 mg PO QID [facility] Stop: 01/17/21 13:29 Last Admin: 12/19/20 08:03 Dose: 200 mg Documented by: Heparin Sodium (Porcine) (Heparin Sod 5,000 Unit/0.5 Ml Vial) 5,000 units SQ Q8 [facility] Stop: 01/17/21 21:59 Last Admin: 12/19/20 06:23 Dose: 5,000 units Documented by: Cefazolin Sodium (Ancef 2000mg) 2,000 mg in 15 mls @ 3.75 mls/min IV PREOP MARLON; Protocol Stop: 12/20/20 05:59 Piperacillin Sod/Tazobactam (Sod 3.375 gm/ Dextrose) 115 mls @ 28.75 mls/hr IV Q8H MARLON; Protocol Stop: 12/28/20 13:59 Last Admin: 12/19/20 06:23 Dose: 28.8 mls/hr Documented by: Magnesium Hydroxide (Magnesium Hydroxide Susp 30 Ml Udc) 30 ml PO Q12H PRN PRN Reason: Constipation Stop: 01/17/21 13:02 Miscellaneous Information (Piperacill/Tazobac Consult Active) 1 ea N/A UD PRN PRN Reason: Consult Stop: 01/17/21 13:02 Morphine Sulfate (Morphine Sulfate 2 Mg/Ml Carp) 2 mg IV Q3H PRN PRN Reason: Pain (1,2,3,4,5) & Pre PT Stop: 01/01/21 13:02 Morphine Sulfate (Morphine Sulfate 4 Mg/Ml 1 Ml Carp\Vial) 4 mg IV Q3H PRN PRN Reason: Pain (6,7,8,9,10) Stop: 01/01/21 13:02 Last Admin: 12/18/20 13:52 Dose: 4 mg Documented by: Naloxone HCl (Naloxone Hcl 0.4 Mg/1 Ml Vial/Carp) 0.1 mg IV UD PRN PRN Reason: Opiate Overdose Stop: 01/17/21 13:02 Ondansetron HCl (Ondansetron Inj 2 Mg/Ml 2 Ml Vial) 4 mg IV Q6H PRN PRN Reason: Nausea Stop: 01/17/21 13:02 Polyethylene Glycol (Polyethylene (Miralax) 17 Gm Pack) 17 gm PO DAILY PRN PRN Reason: Constipation Stop: 01/17/21 13:02 Senna/Docusate Sodium (Docusate Sodium/Senna 50/8.6mg Tab) 2 tab PO HS MARLON Stop: 01/17/21 20:59 Last Admin: 12/18/20 20:19 Dose: 2 tab Documented by: Vitamin D (Cholecalciferol 1,000 Units 25 Mcg Tab) 2,000 units PO DAILY MARLON Stop: 01/18/21 08:59 Last Admin: 12/19/20 08:04 Dose: 2,000 units Documented by: (1) Fall Encounter type: initial encounter Qualified Code(s): W19.XXXA - Unspecified fall, initial encounter (2) Fracture of right hip Encounter type: initial encounter Fracture type: closed Qualified Code(s): S72.001A - Fracture of unspecified part of neck of right femur, initial encounter for closed fracture
[2020-12-19 08:20] LABS: Total Protein 6.1 gm/dl (6.4-8.2)
[2020-12-19] MEDS: SODIUM CHLORIDE 0.9% 1000ML 1,000 ML IV SCH (16:19)
[2020-12-19] MEDS: DOCUSATE SODIUM/SENNA 50/8.6MG TAB PO SCH (21:34)
--- NOTE | 2020-12-19 22:11 | Communication Note ---
Date of Service: December 19, 2020 We were contacted today concerning the patient's right wrist. Nursing noticed increased swelling of the right wrist with some bruising. X-rays were taken and was found that patient had a distal radius fracture. X-rays were reviewed by and myself. During that time, Dr. Almaraz contacted me and stated that the patient's family has chosen to not go forward with any surgery for the periprosthetic hip fracture. Currently we will continue nonoperative care for his right wrist fracture as well. The right wrist was noted to have mild deformity and swelling. Bruising noted around the distal radius and also on the lateral aspect over the ulna with bruising and some mild erythema. He was essentially nontender over the ulnar area but had some mild tenderness over the right distal radius. Capillary refill is less than 2 seconds. Currently the patient really was not answering many questions and was fairly sedate. He appeared pleasantly confused. A volar splint was applied to the right forearm and hand to stabilize the radius fracture. Continue elevation and ice of the right wrist. Patient will be bedrest with his current periprosthetic femur fracture. Okay to logroll for use of bedpan. Pain management as written. Patient may follow-up with either Dr. Fleming or Dr. Aldridge for his right wrist fracture. Once the swelling is down he will likely require casting since nonsurgical option has been chosen by the POA. Please call with any questions.
[2020-12-20] MEDS: SODIUM CHLORIDE 0.9% 1000ML 1,000 ML IV SCH (04:43)
[2020-12-20] MEDS: PIPERACILLIN/TAZOBACTAM 3.375 GM in DEXTROSE 5% 100 ML IV SCH (06:25)
[2020-12-20 07:26] LABS: Hematocrit (blood only) 33.6 % (42-52); Hemoglobin 11.1 g/dL (14.0-18.0); Mean Corpuscular Hemoglobin 28.4 pg (25-34); Mean Corpuscular Volume 85.9 fL (80-100); Mean Platelet Volume 9.6 fL (7.4-10.4); Platelet Count 160 K/uL (130-400); RDW Coefficient of Variation 15.4 % (11.5-14.5); RDW Standard Deviation 48.6 fL (36.4-46.3); Red Blood Count 3.91 M/uL (4.7-6.1); White Blood Count 6.55 K/uL (4.8-10.8)
[2020-12-20 07:59] LABS: BUN Creatinine Ratio 30.9 (10-20); Calcium 8.4 mg/dl (8.5-10.1); Creatinine Clr Calc Pharmacy 70.9 ml/min; Est GFR (African American) 99.4; Est GFR (Non-African American) 85.7; Magnesium 2.2 mg/dl (1.8-2.4); Potassium 3.8 mmol/L (3.5-5.1)
[2020-12-20 08:00] LABS: Phosphorus 2.4 mg/dl (2.5-4.9)
[2020-12-20] MEDS ORDERED: cefTRIAXone SODIUM 1,000 MG in DEXTROSE 5% 50 ML IV SCH (10:00)
[2020-12-20] MEDS: DOCUSATE SODIUM 100 MG CAP PO SCH (10:03)
[2020-12-20] MEDS: CHOLECALCIFEROL 1,000 UNITS 25 MCG TAB PO SCH (10:03)
[2020-12-20] MEDS: ENTACAPONE 200 MG TAB PO SCH ×2 (10:03→13:20)
[2020-12-20] MEDS: AMANTADINE HCL 100 MG CAPSULE PO SCH (10:04)
[2020-12-20] MEDS: CARBIDOPA/LEVODOPA 25/100MG TAB PO SCH ×2 (10:04→13:20)
--- NOTE | 2020-12-20 13:23 | Hospitalist Progress Note ---
Date of Service December 20, 2020 Assessment & Plan (1) Fall: (2) Fracture of right hip: Patient is a 75 yr male with H/O Advanced Parkinson's disease with dementia, history of UTI, BPH, history of COVID-19 06/07, current hospice care who presents to ED after sustaining fall at personal [facility]. He currently resides at [facility]. Acute subtrochanteric right hip fracture H/O Right hemiarthroplasty which were performed on 09/[address] John. Right wrist fracture. Secondary to fall Appreciate Orthopedics help Conservative management as per POA Bowel regimen to prevent constipation Pain is controlled Needs follow-up with orthopedics upon discharge Lovenox for DVT Px Plan to be transition to hospice upon discharge POA--agrees with current management (3) Encephalopathy due to infection: (4) Urinary tract infection: Urine Cx: .E.coli IV Zosyn transition to Rocephin Plan to discharge home p.o. antibiotics (5) Parkinson disease: (6) Dementia: Parkinson's disease with mild dementia Baseline cognition is labile Continue amantadine, Sinemet and entacapone Follows [facility] Neurology (7) MVP (mitral valve prolapse): Stable (8) DVT prophylaxis: SCD/TEDS Lovenox SQ Disposition: SNF Code Status DNR/DNI Admission and Anticipated Discharge Date Admission Date: December 18, 2020 Subjective Patient is seen and examined at bedside Minimal history secondary to dementia Denies any pain Updated patient's POA over the phone Plan to be to transition to hospice upon discharge Review of Systems Review of Systems: All systems reviewed & are unremarkable except as noted in HPI & below Physical Exam Physical Exam: Physical Exam: Vitals signs as noted above General Appearance:Moderately built and nourished, no apparent distress Head: normocephalic, Atraumatic Eyes: normal inspection, EOMI Neck: supple, Trachea midline Respiratory/Chest: Normal breath sounds, CTA, No accessory muscle use Cardiovascular: S1, S2, No murmur Abdomen/GI:Soft, Non tender, Bowel sounds present Extremities/Musculoskeletal:normal inspection, no edema, RLE shortened, externally rotated, RUE in splint Neurologic/Psych:grossly no focal neurological deficits, +Dementia Skin: normal color, warm Results & Data Results & Data ([facility]) Vital Signs (Past 12 Hours) Vital Signs Temp Pulse Resp BP BP Pulse Ox 12/20/20 11:56 36.9 C 80 20 156/90 H 94 12/20/20 07:32 36.5 C 75 18 136/85 94 12/20/20 04:00 37 C 80 20 127/77 93 Laboratory Results Short CBC 12/20/20 Range/Units 06:53 WBC 6.55 (4.8-10.8) K/uL Hgb 11.1 L (14.0-18.0) g/dL Hct 33.6 L (42-52) % Plt Count 160 (130-400) K/uL BMP 12/20/20 06:53 Sodium 140 Potassium 3.8 Chloride 110 H Carbon Dioxide 24 BUN 25 H Creatinine 0.81 Glucose 87 Calcium 8.4 L (1) Fracture of right hip Encounter type: initial encounter Fracture type: closed Qualified Code(s): S72.001A - Fracture of unspecified part of neck of right femur, initial encounter for closed fracture (2) Fall Encounter type: initial encounter Qualified Code(s): W19.XXXA - Unspecified fall, initial encounter
[2020-12-20] MEDS ORDERED: ENOXAPARIN INJ 40 MG/0.4 ML SYR SQ SCH (13:45)
--- NOTE | 2020-12-20 17:12 | Discharge Summary ---
Date of Service December 20, 2020 Admission HPI Per Admitting Provider Chief Complaint: Fall prior to arrival. Primary Care Provider: [facility], [facility] This is a 75-year-old male who has significant past medical history of advanced Parkinson's disease with dementia, history of UTI, BPH, history of COVID-19 06/07, current hospice care who presents to ED after sustaining fall at [facility]. He currently resides at [facility]. Apparently overnight he got up to open window, felt dizzy and fell on his right side. He was unable to get up and had immediate right hip pain. Unfortunately patient had fall in August 2020 with resultant right subcapital hip fracture requiring bipolar hemiarthroplasty by Dr. John. He underwent PT OT and had been ambulating with a walker at [facility]. He was recently placed on hospice within the past month secondary to advanced dementia. History limited from patient secondary to underlying confusion. Most history obtained from [facility] and [facility] Hwang. Per [facility] they had noticed increasing confusion over the past 2 weeks. According to POA patient does have labile confusion and some days are better than others. Goals per the POA are comfort and improved control of Parkinson's. He does follow with [facility] Neurology and was recently placed on entacapone for worsening Parkinson's. He also has history of recurrent urinary tract infections. Recently hospitalized September 2020 secondary to metabolic encephalopathy and UTI. Most recently Enterococcus and Pseudomonas were organisms. In ED patient remained hemodynamically stable. Unfortunately he did sustain a right trochanteric fracture of hip with recent bipolar hemiarthroplasty. Also appears patient may have underlying urinary tract infection and therefore was treated with IV antibiotics. ROS unobtainable secondary to underlying confusion. Admission Exam Per Admitting Provider Physical Exam Physical Exam: Constitutional: WD/WN, male, vitals as above, NAD, lying in bed, pleasant, answers questions, but not always accurate, alert to self and date, thinks he is in a, "barn." Head: Normocephalic, Atraumatic Eyes: PERRL, conjunctivae normal, anicteric sclerae ENMT: external ear and nose normal, oropharynx normal Neck: trachea midline, no thyromegaly normal visual inspection Respiratory: normal respiratory effort, lungs clear to auscultation, no wheeze, rales, rhonchi. Normal insp/exp effort, no accessory muscle use Cardiovascular: RRR, 2/6 HERMES noted cardiac apex, no edema Vessels: no JVD or carotid bruit Chest: normal inspection of chest Abdomen: normal bowel sounds, soft, nontender, no hepatosplenomegaly Musculoskeletal: no cyanosis or clubbing, active range of motion x4, right lower extremity shortened and externally rotated, NVI distally Skin: no rashes, warm and dry normal turgor Neurologic: PERRL, EOMI, accommodation nl, no face palsy, no dysarthria CN's II-XI intact bilaterally and moves all extremities Psychiatric: A+Ox2 to self and date only, euthymic affect Lymphatic: no cervical or axillary lymphadenopathy : Ulrich catheter in place draining yellow urine Principal Diagnosis Periprosthetic fracture around internal prosthetic Right hip joint Right Wrist Fracture Urinary tract infection Metabolic encephalopathy Parkinson's disease Dementia Discharge Data Allergies Allergy/AdvReac Type Severity Reaction Status Date / Time No Known Allergies Allergy Verified 12/18/20 09:29 Consultations 12/18/20 09:25 ED Decision to Admit Stat 12/18/20 09:36 Consult Orthopedic Surgery Routine 12/18/20 13:03 Consult Anesthesiology Routine Ordered Studies 12/18/20 08:01 CT cervical spine wo con Stat CT head/brain wo con Stat Hospital Course (1) Fall: (2) Fracture of right hip: Patient is a 75 yr male with H/O Advanced Parkinson's disease with dementia, history of UTI, BPH, history of COVID-19 06/07, current hospice care who presents to ED after [facility] at [facility]. He currently resides at [facility]. Acute subtrochanteric right hip fracture H/O Right hemiarthroplasty which were performed on 09/[address] John. Right wrist fracture. Secondary to fall Appreciate Orthopedics help Conservative management as per POA Bowel regimen to prevent constipation Pain is controlled Needs follow-up with orthopedics upon discharge Lovenox for DVT Px Plan to be transition to hospice upon discharge POA--agrees with current management (3) Encephalopathy due to infection: (4) Urinary tract infection: Urine Cx: .E.coli IV Zosyn transition to Rocephin Plan to discharge home p.o. antibiotics (5) Parkinson disease: (6) Dementia: Parkinson's disease with mild dementia Baseline cognition is labile Continue amantadine, Sinemet and entacapone Follows [facility] Neurology (7) MVP (mitral valve prolapse): Stable (8) DVT prophylaxis: SCD/TEDS Lovenox SQ Disposition: SNF Code Status DNR/DNI Total Time Total Time Spent Total Time Spent (In Minutes): 40 minutes Discharge Plan Discharge Items Patient Disposition: Personal [facility] Reason For Visit: UTI, R PERIPROSTHETIC HIP FX Discharge Diagnosis: Periprosthetic fracture around internal prosthetic Right hip joint Right Wrist Fracture Urinary tract infection Metabolic encephalopathy Parkinson's disease Dementia Condition on Discharge: Good Activity: Per Instructions section Exercise/Sports: Wait until after follow-up appointment Non-emergency contact: Primary Care Provider and Surgeon Call non-emergency contact if: you have any medication questions, your symptoms worsen, your pain is not controlled, your pain is worsening, your pain is concerning for you and you have a fever Follow-up/Referrals: [facility] [Primary Care Provider] - Diet: Regular Diet Texture: Easy to Chew Addtl Attending Provider Instructions: Follow-up with your primary care physician in 1 week upon discharge Follow-up with your orthopedic surgeon in 2-4 weeks Complete the antibiotic course for urinary tract infection as prescribed. Seek immediate medical attention if your symptoms reoccur or worsen Pending Studies at Discharge: Yes Studies:: Blood Cultures Stand-Alone Forms: [employer], Smoking Cessation Skilled Items Patient informed of condition?: Yes DNR: Yes Discharge Level of Care: Skilled Communicable Disease: No Discharge Prognosis: Stable Lines: None Urinary Catheter: Yes Medications and DC Order Prescriptions: New enoxaparin 40 mg/0.4 mL Syringe 40 mg subcut QAM 30 Days Qty: 12 RF: 0 bisacodyl 10 mg Suppository 10 mg FL DAILY PRNQty: 0 RF: 0 cephalexin 500 mg tablet 500 mg PO BID 5 Days Qty: 10 RF: 0 Continued amantadine HCl 100 mg capsule 100 mg PO BID Qty: 60 RF: 5 diazepam 5 mg tablet 5 mg PO Q6H PRN (Reason: Seizure Activity) RF: 0 morphine 20 mg/5 mL (4 mg/mL) solution 4 mg PO Q4H PRN (Reason: Pain) RF: 0 promethazine 25 mg tablet 25 mg PO Q6H PRN (Reason: Nausea) RF: 0 entacapone 200 mg tablet 200 mg PO QID Qty: 120 RF: 5 carbidopa-levodopa 25-100 mg tablet 1 tab PO QID RF: 0 acetaminophen 325 mg capsule 650 mg PO Q4H MDD 3 GMS APAP/24 HOURS PRN (Reason: Fever Or Pain) RF: 0 nystatin 100,000 unit/gram Cream 1 applic TOPICAL BID PRN (Reason: Rash) RF: 0 diphenhydramine HCl [Banophen] 25 mg Tablet 25 mg PO Q6H PRN (Reason: Allergy Symptoms) RF: 0 docusate sodium 100 mg capsule 100 mg PO BID RF: 0 carbamide peroxide [Ear Wax Drops] 6.5 % Drops 5 drp OTIC (EAR) Q12H PRN (Reason: Ear Wax Removal) RF: 0 Ensure Liquid 1 ea PO BIDM RF: 0 cholecalciferol (vitamin D3) [Vitamin D3] 50 mcg (2,000 unit) Capsule 50 mcg PO DAILY RF: 0 atropine 1 % Drops 1 drp sublingual Q1H PRN (Reason: INCREASED RESPIRATORY SECRETION) RF: 0 ferrous sulfate 324 mg (65 mg iron) Tablet,Delayed Release (Dr/Ec) 324 mg PO BID RF: 0 Discharge Orders: Discharge Order (Routine); Ordered 12/20/20 Ordered By: Drake Valdivia Admission Data Admit Date/Time: 12/18/20 09:36 Attending Provider: Drake Valdivia Admit Provider: Ti Almaraz Primary Care Provider: [facility] [email or web address] Other Providers: Taras Aldridge ; Ti Almaraz ; Nathan Sylvester Other Interventions: Discharge Summary Assessment (RN) Last Done: 12/20/20 14:26
== END 2020-12-20 14:50 | disposition hospice, home (50) | DRG 535 ==
LOC: ED 07:52 → 2N 09:36 → SUATTDRO 09:36 → 2N 11:16